=== PATIENT | male | born 1940 | race Caucasian/White ===

== ENCOUNTER 2016-12-11 18:25 | Inpatient (IN) | payer OTHER, MEDICARE ==
[2016-12-11] VITALS (9 sets, daily range): BP systolic 98–139; BP diastolic 53–85; PULSE 75–144; RESP 16–22; TEMP 97.8–98.7; O2SAT 81–99
[~2016-12-11] VITALS: Ht 181.6 cm; Wt 88.7 kg
[~2016-12-11 18:25] MED LIST: ALBU1AER5 INH; AMIO5TAB PO; ASPI81TA11 PO; ATOR40TA16 PO; FENT100D T-DERMAL; LANTUS2P SQ; LEVO200T4 PO; METO10TA PO; MIRA3350 PO; MSIR30 PO; NOVOINJ3 SQ; ONDA1TAB17 PO; PRED10PA PO; PROT40TA PO; SPIRCAP INH; SUCR1TAB PO; TAMS0.4C4 PO; TRAZ100T4 PO; XARE20TA PO; ZANT150T2 PO
--- NOTE | 2016-12-11 18:52 | PD ---
HPI Chief Complaint: Cardiac Complaint Time Seen by Provider: 18:48 Travel History International Travel<30 days: No Contact w/Intl Traveler<30days: No Traveled to known affect area: No History of Present Illness HPI This is a 76-year-old male who has a history of atrial flutter who presents to the emergency department with worsening shortness of breath, palpitations and increasing lower extremity swelling is been progressing ever since he was admitted in October and had an ablation. The patient reports that he went to see his doctor earlier this week and they started him on digoxin as well as Lasix. He's been taking it but his symptoms have not been improving. He says he's had some intermittent chest tightness in the center of his chest. His symptoms of been constant, worsening limiting his ability to go about his daily activities. PFSH Past Medical History Hx Anticoagulant Therapy: Yes (XARELTO) Arthritis: Yes Asthma: No Atrial Fibrillation: Yes Autoimmune Disease: No Heart Rhythm Problems: Yes Cancer: No Cardiovascular Problems: Yes High Cholesterol: No Chest Pain: No Congestive Heart Failure: No COPD: Yes Cerebrovascular Accident: No Diabetes: Yes Patient Takes Glucophage: No Endocrine: Yes Gastrointestinal Disorders: Yes (GASTROPARESIS) GERD: Yes Genitourinary: No Hepatitis: No Hiatal Hernia: Yes Hypertension: Yes Immune Disorder: No Implanted Vascular Access Dvce: No Musculoskeletal: Yes Neurologic: No Psychiatric: No Reproductive: No Respiratory: Yes Sleep Apnea: No Thyroid Disease: Yes Ulcer: No ?: Not Past Surgical History Abdominal Surgery: Yes (gallbladder) AICD: No Body Medical Devices: left shoulder metal plate with approx. 16 screws Cardiac Surgery: Yes (Ablation, cath) Cholecystectomy: Yes Ear Surgery: No Endocrine Surgery: No Eye Surgery: No Genitourinary Surgery: No Gynecologic Surgery: No Joint Replacement: Yes (LEFT SHOULDER METAL CLAW, 16 SCREWS) Neurologic Surgery: Yes (R leg) Oral Surgery: Yes Pacemaker: No Thoracic Surgery: No Other Surgery: Yes Social History Alcohol Use: No Tobacco Use: Yes (2 CIGARETTES/DAY) Substance Use: No Allergies-Medications (Allergen,Severity, Reaction): Coded Allergies: Flagyl (Verified Allergy, Severe, 12/11/16) Floxcin (Verified Allergy, Severe, 12/11/16) Latex (Verified Allergy, Severe, 12/11/16) Adhesives (Verified Allergy, Mild, 12/11/16) Reported Meds & Prescriptions Reported Meds & Active Scripts Active Prednisone (21) 10 mg tab Dose Pack (Prednisone) 10 Mg Pack 10 Mg PO DIRECTED Reported Levothyroxine (Levothyroxine Sodium) 200 Mcg Tab 200 Mcg PO DAILY Aspirin EC (Aspirin) 81 Mg Tabdr 81 Mg PO DAILY Zantac (Ranitidine HCl) 150 Mg Tab 150 Mg PO BID Fentanyl Patch 72 HR (Fentanyl) 100 Mcg/Hr Patch 100 Mcg T-DERMAL EVERY 2 DAYS Remove old patch when new one placed. Morphine IR (Morphine Sulfate) 30 Mg Tab 30 Mg PO Q6HR PRN Protonix (Pantoprazole Sodium) 40 Mg Tab 40 Mg PO DAILY Novolog Flexpen Inj (Insulin Aspart) 300 Unit/3 Ml Pen 5-15 Units SQ ACHS PER SLIDING SCALE: 0-150-5 UNITS, 151-200=7 UNITS, 201-250=9 UNITS, 251-300=11 UNITS, 301-350=13 UNITS, 351-400=15 UNITS, 401 & UP=CALL MD Lantus Inj (Insulin Glargine) 100 Unit/Ml Inj 12 Units SQ Q12HR Amiodarone (Amiodarone HCl) 200 Mg Tab 200 Mg PO HS Atorvastatin (Atorvastatin Calcium) 40 Mg Tab 40 Mg PO HS Ondansetron (Ondansetron HCl) 8 Mg Tab 8 Mg PO Q8HR PRN Metoclopramide (Metoclopramide HCl) 10 Mg Tab 10 Mg PO QID Trazodone (Trazodone HCl) 100 Mg Tab 200 Mg PO HS Spiriva Handihaler (Tiotropium Inh) 18 Mcg Cap 18 Mcg INH DAILY 1 capsule = 18 mcg Miralax (Polyethylene Glycol 3350) 1 Pow Pow 17 Gm PO DAILY Proair Respiclick Inh (Albuterol Sulfate) 90 Mcg/Act Aerp 2 Puff INH Q4HR PRN Sucralfate 1 Gm Tab 1 Gm PO TID on empty stomach Xarelto (Rivaroxaban) 20 Mg Tab 20 Mg PO DAILY Tamsulosin (Tamsulosin HCl) 0.4 Mg Cap 0.4 Mg PO HS Review of Systems Except as stated in HPI: all other systems reviewed are Neg Physical Exam Narrative GENERAL:Well appearing, no acute distress SKIN: Warm and dry. HEAD: Atraumatic. Normocephalic. EYES: Pupils equal and round. No injection or drainage. ENT: Moist mucous membranes NECK: Trachea midline. CARDIOVASCULAR: Tachycardic. No murmur appreciated. 2+ lower extremity bilateral pitting edema RESPIRATORY: Rales in the bilateral lung bases. GASTROINTESTINAL: Abdomen soft, non-tender, nondistended. MUSCULOSKELETAL: No obvious deformities. NEUROLOGICAL: Awake and alert. No obvious cranial nerve deficits. Moving all extremities. PSYCHIATRIC: Appropriate mood and affect; insight and judgment normal. Data Data Last Documented VS Vital Signs Date Time Temp Pulse Resp B/P Pulse Ox O2 Delivery O2 Flow Rate FiO2 12/11/16 18:42 138 20 95 Nasal Cannula 4 12/11/16 18:35 98.2 119/66 Orders Electrocardiogram (12/11/16 ) MDM Medical Decision Making Medical Screen Exam Complete: Yes Emergency Medical Condition: Yes Medical Record Reviewed: Yes (patient has had [address] Gilbert in the setting of atrial flutter.) Differential Diagnosis Atrial flutter, congestive heart failure, pneumonia, pulmonary embolism Narrative Course This is a 76-year-old male who presents the emergency department tachycardic and hypoxic in the setting of atrial flutter. He is increasing lower extremity edema consistent with congestive heart failure. Patient was placed on a monitor and an IV was established. He'll be given IV diltiazem, IV Lasix, an x- ray and labs will be obtained. Patient will be admitted Reina Wells MD Dec 11, 2016 18:52
[2016-12-11] MEDS ORDERED: FURO20TA PO (18:55)
[2016-12-11] MEDS ORDERED: FUROSEMIDE 40 MG/4 ML VIAL IVP ONE (19:00)
[2016-12-11] MEDS ORDERED: SODIUM CHLORIDE 0.9% FLUSH 5 ML FLUSH IVF PRN (19:00)
[2016-12-11] MEDS ORDERED: DILTIAZEM HCL 25 MG/5 ML VIAL IV ONE (19:00)
--- NOTE | 2016-12-11 19:10 | RADRPT ---
EXAM DATE/TIME: 12/11/2016 19:05 [facility] COMPARISON: CHEST SINGLE AP, November 24, 2016, 4:30. INDICATIONS : Short of breath MEDICAL HISTORY : Hypertension. Hiatal hernia. Chronic obstructive pulmonary disease. Diabetes A-fib SURGICAL HISTORY : Cholecystectomy. ENCOUNTER: Initial ACUITY: 1 day PAIN SCORE: 0/10 LOCATION: Bilateral chest FINDINGS: New consolidative changes left base. The right lung is clear. The heart is minimally enlarged. The re is minimal pulmonary venous congestion. CONCLUSION: New consolidative changes left base. Henry Sims MD FACR on December 11, 2016 at 19:07 Board Certified Radiologist. This report was verified electronically.
[2016-12-11 19:16] LABS: AUTOMATED NEUTROPHIL # 5.7 TH/MM3 (1.8-7.7); BASOPHIL # 0.1 TH/MM3 (0-0.2); EOSINOPHIL % 0.1 % (0.0-4.0); HEMO FLAGS DIFF FINAL; LYMPH % 10.4 % (9.0-44.0); LYMPHOCYTE # 0.7 TH/MM3 (1.0-4.8); MEAN CELL VOLUME 85.8 FL (80.0-100.0); MEAN CORPUSCULAR HEMOGLOBIN 28.2 PG (27.0-34.0); MEAN CORPUSCULAR HGB CONC 32.9 % (32.0-36.0); MONO % 8.3 % (0.0-8.0); NEUT % 80.2 % (16.0-70.0); PLATELET COUNT 234 TH/MM3 (150-450); RED BLOOD COUNT 5.01 MIL/MM3 (4.50-5.90); RED CELL DISTRIBUTION WIDTH 17.8 % (11.6-17.2); WHITE BLOOD COUNT 7.1 TH/MM3 (4.0-11.0)
[2016-12-11] MEDS ORDERED: CEFEPIME INJ 2,000 MG in SODIUM CHLORIDE 0.9% INJ 100 ML IV ONE (19:45)
[2016-12-11] MEDS ORDERED: AZTREONAM INJ 2,000 MG in SODIUM CHLORIDE 0.9% INJ 100 ML IV ONE (19:45)
[2016-12-11 19:47] LABS: ANION GAP 11 MEQ/L (5-15); AST (GOT) 13 U/L (15-37); BLOOD UREA NITROGEN 16 MG/DL (7-18); CHLORIDE 95 MEQ/L (98-107); GLOMERULAR FILTRATION RATE 77 ML/MIN (>89); MAGNESIUM 1.6 MG/DL (1.5-2.5); POTASSIUM 4.2 MEQ/L (3.5-5.1); SODIUM (NA) 133 MEQ/L (136-145)
[2016-12-11 19:54] LABS: ALKALINE PHOSPHATASE 178 U/L (45-117); ALT (GPT) 21 U/L (12-78); TOTAL BILIRUBIN ADULT 1.1 MG/DL (0.2-1.0)
[2016-12-11] MEDS ORDERED: MORPHINE SULFATE 4 MG/ML INJ IV PUSH ONE (20:15)
[2016-12-11] MEDS ORDERED: ONDANSETRON HCL 4 MG/2 ML VIAL IV PUSH ONE (20:15)
[2016-12-11] MEDS ORDERED: INSULIN HUMAN REGULAR 1,000 UNITS/10 ML VIAL SQ ONE (20:15)
[2016-12-11] MEDS ORDERED: NALOXONE HCL 0.4 MG/ML AMP IV PRN (20:30)
[2016-12-11] MEDS ORDERED: SODIUM CHLORIDE 0.9% FLUSH 5 ML FLUSH FLUSH PRN (20:30)
--- NOTE | 2016-12-11 20:37 | PD ---
Physical Exam Narrative Patient signed out to me by Dr. Wells to follow up labs. Please refer to her note for complete history and physical details. Briefly, patient has been experiencing pain to the left side of his chest with SOB ever since having an ablation performed in late October. He was given 4 days of Digoxin by his PCP earlier this week because he continued to have rapid heart rate. When patient arrived, he had a heart rate in the 140s and was given Diltiazem and Lasix. Data Data Last Documented VS Vital Signs Date Time Temp Pulse Resp B/P Pulse Ox O2 Delivery O2 Flow Rate FiO2 12/11/16 19:15 89 22 116/53 Nasal Cannula 4 12/11/16 19:07 96 12/11/16 18:35 98.2 Orders Electrocardiogram (12/11/16 ) Complete Blood Count With Diff (12/11/16 18:52) Comprehensive Metabolic Panel (12/11/16 18:52) B-Type Natriuretic Peptide (12/11/16 18:52) Magnesium (Mg) (12/11/16 18:52) Troponin I (12/11/16 18:52) Iv Access Insert/Monitor (12/11/16 18:52) Ecg Monitoring (12/11/16 18:52) Oximetry (12/11/16 18:52) Oxygen Administration (12/11/16 18:52) Chest, Single Ap (12/11/16 18:52) Sodium Chloride 0.9% Flush (Ns Flush) (12/11/16 19:00) Furosemide Inj (Lasix Inj) (12/11/16 19:00) Diltiazem Inj (Cardizem Inj) (12/11/16 19:00) Digoxin (12/11/16 19:01) Cefepime Inj (Maxipime Inj) (12/11/16 19:45) Aztreonam Inj (Azactam Inj) (12/11/16 19:45) Morphine Inj (Morphine Inj) (12/11/16 20:15) Ondansetron Inj (Zofran Inj) (12/11/16 20:15) Insulin Human Regular Inj (Novolin R Inj (12/11/16 20:15) Admit Order (Ed Use Only) (12/11/16 ) Labs Laboratory Tests Test 12/11/16 19:00 White Blood Count 7.1 TH/MM3 Red Blood Count 5.01 MIL/MM3 Hemoglobin 14.1 GM/DL Hematocrit 43.0 % Mean Corpuscular Volume 85.8 FL Mean Corpuscular Hemoglobin 28.2 PG Mean Corpuscular Hemoglobin 32.9 % Concent Red Cell Distribution Width 17.8 % Platelet Count 234 TH/MM3 Mean Platelet Volume 8.0 FL Neutrophils (%) (Auto) 80.2 % Lymphocytes (%) (Auto) 10.4 % Monocytes (%) (Auto) 8.3 % Eosinophils (%) (Auto) 0.1 % Basophils (%) (Auto) 1.0 % Neutrophils # (Auto) 5.7 TH/MM3 Lymphocytes # (Auto) 0.7 TH/MM3 Monocytes # (Auto) 0.6 TH/MM3 Eosinophils # (Auto) 0.0 TH/MM3 Basophils # (Auto) 0.1 TH/MM3 CBC Comment DIFF FINAL Differential Comment Sodium Level 133 MEQ/L Potassium Level 4.2 MEQ/L Chloride Level 95 MEQ/L Carbon Dioxide Level 27.0 MEQ/L Anion Gap 11 MEQ/L Blood Urea Nitrogen 16 MG/DL Creatinine 0.95 MG/DL Estimat Glomerular Filtration 77 ML/MIN Rate Random Glucose 411 MG/DL Calcium Level 8.1 MG/DL Magnesium Level 1.6 MG/DL Total Bilirubin 1.1 MG/DL Aspartate Amino Transf 13 U/L (AST/SGOT) Alanine Aminotransferase 21 U/L (ALT/SGPT) Alkaline Phosphatase 178 U/L Troponin I 0.02 NG/ML Total Protein 6.0 GM/DL Albumin 2.5 GM/DL Digoxin Level 0.6 NG/ML MDM Supervised Visit with PRINCESS: No Narrative Course CXR shows a LLL pneumonia, no pulmonary edema. Labs show an elevated glucose. Patient given Cefepime and Aztreonam for HCAP, Aztreonam given due to Levaquin allergy and issues with arrhythmia. Given Morphine for pain and Zofran for nausea. Given 8 units of insulin. Patient admitted for further management. Diagnosis Primary Impression: Pneumonia Qualified Code: J18.1 - Pneumonia of left lower lobe due to infectious organism Additional Impression: Atrial flutter with rapid ventricular response Admitting Information Admitting Physician Requests: Admit Sara Kirkpatrick MD Dec 11, 2016 20:37
[2016-12-11] MEDS ORDERED: GLUCAGON 1 MG/ML VIAL OTHER PRN (20:45)
[2016-12-11] MEDS ORDERED: DEXTROSE 50% IN WATER 50 ML VIAL(D50) IV PUSH PRN (20:45)
[2016-12-11] MEDS ORDERED: FUROSEMIDE 20 MG TAB PO SCH (21:00)
[2016-12-11] MEDS ORDERED: AMIODARONE 200 MG TAB PO SCH (21:00)
[2016-12-11] MEDS: SODIUM CHLORIDE 0.9% FLUSH 5 ML FLUSH FLUSH SCH (21:00)
[2016-12-11] MEDS: INSULIN ASPART SUPPLEMENTAL SCALE SQ SCH (21:00)
[2016-12-11] MEDS: METOCLOPRAMIDE HCL 10 MG TAB PO SCH (21:40)
[2016-12-11] MEDS: FAMOTIDINE 20 MG TAB PO SCH (21:40)
[2016-12-11] MEDS: ATORVASTATIN 40 MG TAB PO SCH (22:10)
[2016-12-11] MEDS: TAMSULOSIN HCL 0.4 MG CAP PO SCH (22:10)
[2016-12-11 22:13] LABS: BLOOD, URINE MOD (NEG); COMMENT (UR) CULT NOT INDICATED; CULTURE IF INDICATED CULT NOT INDICATED; GLUCOSE,URINE 1000 mg/dL (NEG); HYALINE CAST, URINE 4 /lpf (RARE); KETONE, URINE NEG (NEG); MUCUS URINE FEW /lpf (OCC); NITRITE,URINE NEG (NEG); PH, URINE 5.5 (5.0-8.5); SQUAMOUS EPITHELIAL CELL URINE 1 /hpf (0-5); URINE COLOR LIGHT-YELLOW (YELLW/STRAW)
[2016-12-11] MEDS ORDERED: MORPHINE SULFATE 4 MG/ML INJ IV PUSH PRN (22:30)
--- NOTE | 2016-12-11 22:49 | HHI.HP ---
[facility] Admission Diagnosis pneumonia, aflutter with RVR Diagnoses: (1) Atrial flutter with rapid ventricular response (2) Pneumonia (3) Type 2 diabetes mellitus (4) Hyponatremia (5) Neuropathy (6) Chronic pain Chief Complaint: chest pain, palpitations Travel History International Travel<30 Days: No Contact w/Intl Traveler <30 Da: No Traveled to Known Affected Are: No History of Present Illness Mr. Santana is a 76-year-old male with a past medical history of atrial fibrillation on Xarelto s/p ablation x 2, arthritis, COPD, diabetes mellitus, gastroparesis, gastroesophageal reflux disease, and chronic neuropathic pain who presents to the emergency room complaining of worsening shortness of breath , palpitations, and increased lower extremity swelling since a October hospitalization for atrial fibrillation with an ablation by Dr. Viveros. PCP saw patient earlier this week and provided 4 days of digoxin for rapid heart rate and Lasix for lower extremity swelling. BNP normal at 97, troponin 1 is 0.02 which is within normal parameters. Mild hyponatremia noted with sodium of 133. Hyperglycemia with glucose of 411. Chest x-ray with new consolidation noted left lower lobe; minimal pulmonary venous congestion; minimal cardiomegaly. The patient is seen in the CDU. He states he has severe intermittent chest pain started today; worse when lying back -location: central and left chest; Denies fever, diaphoresis or chills. Palpitations with cough and severe shortness of breath accompanied palpitations. He also reports shortness of breath with cough until two days ago - when coughing had phlegm x 1 1/2 weeks - white in color. Symptoms accompanied by severe fatigue. . Review of Systems Constitutional: COMPLAINS OF: Fatigue, DENIES: Diaphoretic episodes, Fever, Chills Respiratory: COMPLAINS OF: Cough, Sputum production, Shortness of breath Cardiovascular: COMPLAINS OF: Chest pain, Palpitations Gastrointestinal: COMPLAINS OF: Constipation, Nausea, Vomiting (yellow; appeared like bile - post-tussive), DENIES: Black stools, Bloody stools Genitourinary: COMPLAINS OF: Hematuria (3 weeks ago; evaluated by PCP; no treatment offered), DENIES: Dysuria Musculoskeletal: COMPLAINS OF: Joint pain (knee - chronic) Psychiatric: COMPLAINS OF: Anxiety Other Psychiatric: claustrophobia All systems are reviewed and are otherwise negative . Past Family Social History Past Medical History Atrial fibrillation on Xarelto status post ablation Arthritis COPD Diabetes mellitus Gastroparesis Gastroesophageal reflux disease . Past Surgical History Cholecystectomy Left shoulder repair with metal plate EPS with ablation Cholecystectomy Right leg surgery . Reported Medications Reported Meds & Active Scripts Active Reported Furosemide 20 Mg Tab 20 Mg PO BID Levothyroxine (Levothyroxine Sodium) 200 Mcg Tab 200 Mcg PO DAILY Zantac (Ranitidine HCl) 150 Mg Tab 150 Mg PO BID Fentanyl Patch 72 HR (Fentanyl) 100 Mcg/Hr Patch 100 Mcg T-DERMAL EVERY 2 DAYS Remove old patch when new one placed. Morphine IR (Morphine Sulfate) 30 Mg Tab 30 Mg PO Q6HR PRN Protonix (Pantoprazole Sodium) 40 Mg Tab 40 Mg PO DAILY Novolog Flexpen Inj (Insulin Aspart) 300 Unit/3 Ml Pen 5-15 Units SQ ACHS PER SLIDING SCALE: 0-150-5 UNITS, 151-200=7 UNITS, 201-250=9 UNITS, 251-300=11 UNITS, 301-350=13 UNITS, 351-400=15 UNITS, 401 & UP=CALL Lantus Inj (Insulin Glargine) 100 Unit/Ml Inj 12 Units SQ Q12HR Amiodarone (Amiodarone HCl) 200 Mg Tab 200 Mg PO HS Atorvastatin (Atorvastatin Calcium) 40 Mg Tab 40 Mg PO HS Ondansetron (Ondansetron HCl) 8 Mg Tab 8 Mg PO Q8HR PRN Metoclopramide (Metoclopramide HCl) 10 Mg Tab 10 Mg PO QID Trazodone (Trazodone HCl) 100 Mg Tab 200 Mg PO HS Spiriva Handihaler (Tiotropium Inh) 18 Mcg Cap 18 Mcg INH DAILY 1 capsule = 18 mcg Miralax (Polyethylene Glycol 3350) 1 Pow Pow 17 Gm PO DAILY Proair Respiclick Inh (Albuterol Sulfate) 90 Mcg/Act Aerp 2 Puff INH Q4HR PRN Sucralfate 1 Gm Tab 1 Gm PO TID on empty stomach Xarelto (Rivaroxaban) 20 Mg Tab 20 Mg PO DAILY Tamsulosin (Tamsulosin HCl) 0.4 Mg Cap 0.4 Mg PO HS . Allergies: Coded Allergies: Flagyl (Verified Allergy, Severe, 12/11/16) Floxcin (Verified Allergy, Severe, 12/11/16) Latex (Verified Allergy, Severe, 12/11/16) Adhesives (Verified Allergy, Mild, 12/11/16) Active Ordered Medications Current Medications IV Flush (NS Flush) 2 ml UNSCH PRN IVF FLUSH AFTER USING IV ACCESS; Start 12/11 at 19:00; Stop 12/11/16 at 20:37; Status DC Furosemide (Lasix Inj) 40 mg ONCE ONCE IVP Last administered on 12/11/16 19: 17; Start 12/11/16 at 19:00; Stop 12/11/16 at 19:01; Status DC Diltiazem HCl 15 mg 15 mg ONCE ONCE IV Last administered on 12/11/16 19:13; Start 12/11/16 at 19:00; Stop 12/11/16 at 19:01; Status DC Cefepime HCl 2000 mg/Sodium Chloride 100 ml @ 200 mls/hr ONCE ONCE IV Last administered on 12/11/16 20:16; Start 12/11/16 at 19:45; Stop 12/11/16 at 20:14 ; Status DC Aztreonam/Sodium Chloride (Azactam Inj/NS Inj) 100 ml @ 200 mls/hr ONCE ONCE IV Last administered on 12/11/16 21:02; Start 12/11/16 at 19:45; Stop at 20:14; Status DC Morphine Sulfate (Morphine Inj) 2 mg ONCE ONCE IV PUSH Last administered on 20:30; Start 12/11/16 at 20:15; Stop 12/11/16 at 20:16; Status DC Ondansetron HCl (Zofran Inj) 4 mg ONCE ONCE IV PUSH Last administered on 20:29; Start 12/11/16 at 20:15; Stop 12/11/16 at 20:16; Status DC Insulin Human Regular (NovoLIN R INJ) 8 units ONCE ONCE SQ Last administered on 12/11/16 20:30; Start 12/11/16 at 20:15; Stop 12/11/16 at 20:16; Status DC IV Flush (NS Flush) 2 ml UNSCH PRN FLUSH FLUSH AFTER USING IV ACCESS; Start 11/15 at 20:30 IV Flush (NS Flush) 2 ml BID FLUSH ; Start 12/11/16 at 21:00 Naloxone HCl (Narcan Inj) 0.4 mg UNSCH PRN IV SEE LABEL COMMENTS; Start at 20:30 Dextrose (D50w (Vial) Inj) 25 ml UNSCH PRN IV PUSH HYPOGLYCEMIA-SEE COMMENTS; Start 12/11/16 at 20:45 Glucagon (Glucagon Inj) 1 mg UNSCH PRN OTHER HYPOGLYCEMIA-SEE COMMENTS; Start 12/11/16 at 20:45 Insulin Aspart (NovoLOG SUPPLEMENTAL SCALE) 1 ACHS SLIDING SCALE SQ ; Start 11/15 at 21:00 Amiodarone HCl (Cordarone) 200 mg HS PO Last administered on 12/11/16 21:40; Start 12/11/16 at 21:00 Atorvastatin Calcium (Lipitor) 40 mg HS PO Last administered on 12/11/16 22:10 ; Start 12/11/16 at 21:00 Furosemide (Lasix) 20 mg BID PO ; Start 12/11/16 at 21:00; Stop 12/11/16 at 21: 17; Status DC Levothyroxine Sodium (Synthroid) 200 mcg DAILY PO ; Start 12/12/16 at 09:00 Metoclopramide HCl (Reglan) 10 mg QID PO Last administered on 12/11/16 21:40; Start 12/11/16 at 21:00 Pantoprazole Sodium (Protonix) 40 mg DAILY PO ; Start 12/12/16 at 09:00 Famotidine (Pepcid) 20 mg BID PO Last administered on 12/11/16 21:40; Start at 21:00 Rivaroxaban (Xarelto) 20 mg DAILY PO ; Start 12/12/16 at 09:00 Sucralfate (Carafate) 1 gm TID PO ; Start 12/12/16 at 09:00 Tamsulosin HCl (Flomax) 0.4 mg HS PO Last administered on 12/11/16 22:10; Start 12/11/16 at 21:00 Tiotropium [place] (Spiriva Inh) 18 mcg DAILY INH ; Start 12/12/16 at 09:00 Furosemide (Lasix) 20 mg BID PO ; Start 12/12/16 at 09:00 Trazodone HCl (Desyrel) 200 mg HS PO ; Start 12/11/16 at 22:30 Morphine Sulfate (Morphine Inj) 2 mg Q4HR PRN IV PUSH pain >5; Start 12/11/16 at 22:30 . Family History Mother: [place], not early onset Father: PAD . Social History Tobacco: Smokes 1 PPD x has smoked for 54 years Alcohol: Denies Illicit Drugs: Denies ; drives self . Physical Exam Vital Signs Vital Signs Date Time Temp Pulse Resp B/P Pulse Ox O2 Delivery O2 Flow Rate FiO2 12/11/16 22:21 75 12/11/16 22:14 98.7 82 16 139/63 93 12/11/16 21:00 99 Nasal Cannula 4 12/11/16 21:00 99 22 126/70 96 Nasal Cannula 4 12/11/16 21:00 22 99 Nasal Cannula 4 12/11/16 20:00 105 22 132/85 96 Nasal Cannula 4 12/11/16 19:15 89 22 116/53 Nasal Cannula 4 12/11/16 19:07 122 22 119/66 96 Nasal Cannula 12/11/16 18:42 138 20 95 Nasal Cannula 4 12/11/16 18:35 98.2 144 22 119/66 84 12/11/16 18:29 97.8 139 20 98/58 81 Room Air Physical Exam GENERAL: This is a pleasant well-nourished, well-developed patient, in no apparent distress. SKIN: No rashes, ecchymoses or lesions. Cool and dry. HEAD: Atraumatic. Normocephalic. EYES: No scleral icterus. No injection or drainage. ENT: Nose without bleeding, purulent drainage. NECK: Trachea midline. No JVD or lymphadenopathy. CARDIOVASCULAR: Regular rate and rhythm without murmurs, gallops, or rubs. RESPIRATORY: Diffuse expiratory wheezing. Breath sounds equal bilaterally. No rales or rhonchi. GASTROINTESTINAL: Abdomen soft, non-tender, nondistended. No guarding. MUSCULOSKELETAL: Extremities without clubbing, cyanosis, or edema. No calf tenderness. NEUROLOGICAL: Awake and alert. Motor and sensory grossly within normal limits. Normal speech. . Laboratory Laboratory Tests Test 12/11/16 12/11/16 19:00 21:47 White Blood Count 7.1 Red Blood Count 5.01 Hemoglobin 14.1 Hematocrit 43.0 Mean Corpuscular Volume 85.8 Mean Corpuscular Hemoglobin 28.2 Mean Corpuscular Hemoglobin 32.9 Concent Red Cell Distribution Width 17.8 Platelet Count 234 Mean Platelet Volume 8.0 Neutrophils (%) (Auto) 80.2 Lymphocytes (%) (Auto) 10.4 Monocytes (%) (Auto) 8.3 Eosinophils (%) (Auto) 0.1 Basophils (%) (Auto) 1.0 Neutrophils # (Auto) 5.7 Lymphocytes # (Auto) 0.7 Monocytes # (Auto) 0.6 Eosinophils # (Auto) 0.0 Basophils # (Auto) 0.1 CBC Comment DIFF FINAL Differential Comment Sodium Level 133 Potassium Level 4.2 Chloride Level 95 Carbon Dioxide Level 27.0 Anion Gap 11 Blood Urea Nitrogen 16 Creatinine 0.95 Estimat Glomerular Filtration 77 Rate Random Glucose 411 Calcium Level 8.1 Magnesium Level 1.6 Total Bilirubin 1.1 Aspartate Amino Transf 13 (AST/SGOT) Alanine Aminotransferase 21 (ALT/SGPT) Alkaline Phosphatase 178 Troponin I 0.02 B-Type Natriuretic Peptide 97 Total Protein 6.0 Albumin 2.5 Digoxin Level 0.6 Urine Color LIGHT-YELLOW Urine Turbidity CLEAR Urine pH 5.5 Urine Specific [place] 1.011 Urine Protein NEG Urine Glucose (UA) 1000 Urine Ketones NEG Urine Occult Blood MOD Urine Nitrite NEG Urine Bilirubin NEG Urine Urobilinogen LESS THAN 2.0 Urine Leukocyte Esterase NEG Urine RBC 8 Urine WBC LESS THAN 1 Urine Squamous Epithelial 1 Cells Urine Hyaline Casts 4 Urine Mucus FEW Microscopic Urinalysis Comment CULT NOT INDICATED Result Diagram: 12/11/16 1900 12/11/16 190 Imaging Last Impressions Chest X-Ray 12/11/16 1852 Signed Impressions: Service Date/Time: November 19:05 - CONCLUSION: New consolidative changes left base. Henry Sims MD FACR Assessment and Plan Problem List: (1) Pneumonia ICD Code: J18.9 Status: Acute (2) Atrial flutter with rapid ventricular response ICD Code: I48.92 Status: Acute (3) Type 2 diabetes mellitus ICD Code: E11.9 Status: Chronic (4) Hyponatremia ICD Code: E87.1 Status: Acute (5) Neuropathy ICD Code: G62.9 Status: Chronic (6) Chronic pain ICD Code: G89.29 Status: Chronic Assessment and Plan Mr. Santana is a 76-year-old male with a past medical history of atrial fibrillation on Xarelto, arthritis, COPD, diabetes mellitus, gastroparesis, gastroesophageal reflux disease, and chronic neuropathic pain who presents to the emergency room complaining of worsening shortness of breath, palpitations, and increased lower extremity swelling since a October hospitalization for atrial fibrillation with an ablation by Dr. Viveros. PCP saw patient earlier this week and provided 4 days of digoxin for rapid heart rate and Lasix for lower extremity swelling. BNP normal at 97, troponin 1 is 0.02 which is within normal parameters. Mild hyponatremia noted with sodium of 133. Hyperglycemia with glucose of 411. Chest x-ray with new consolidation noted left lower lobe; minimal pulmonary venous congestion; minimal cardiomegaly. Left lower lobe pneumonia - left lung base consolidation on CXR - Given cefepime and aztreonam for HCAP in ER - Cefipime 2 gm IV q8h - Holding duonebulizer for now until heart rate is better controlled (doesn't use nebulizers at home) - consider Xopenex Atrial flutter with RVR - Rule out ACS with serial EKGs and cardiac enzymes - Rate controlled with IV Cardizem - Continuous cardiac telemetry to monitor rate and further arrhythmias - Heart healthy diet - I and O every shift - Vital signs every 4 hours - Digoxin subtherapeutic at 0.6 on admission Type 2 diabetes mellitus with hyperglycemia on admission - Blood glucose 411 on admission - Accu-Cheks before meals and at bedtime with low-dose NovoLog sliding scale coverage - Hypoglycemia protocol - Monitor blood glucose trends and adjust medications as indicated Mild hyponatremia with sodium 133 - Recheck BMP in a.m. and follow trends and sodium Chronic Neuropathic Pain - continue home Fentanyl and Morphine DVT prophylaxis - continue home Xarelto Written by Monik Castro, acting as scribe for Dr. Keith on 12/11/16 at 22:47. The documentation accurately reflects the work performed [id number] by me on at 2247 . Discussed Condition With patient and ER physician . Physician Certification 2 Midnight Certification Type: Admission for Inpatient Services Order for Inpatient Services The services are ordered in accordance with Medicare regulations or non- Medicare payer requirements, as applicable. In the case of services not specified as inpatient-only, they are appropriately provided as inpatient services in accordance with the 2-midnight benchmark. Estimated LOS (days): 3 days is the estimated time the patient will need to remain in the hospital, assuming treatment plan goals are met and no additional complications. Post-Hospital Plan: Home Problem Qualifiers (1) Pneumonia: Qualified Code: J18.1 - Pneumonia of left lower lobe due to infectious organism (2) Type 2 diabetes mellitus: Monik Castro Dec 11, 2016 22:49 Jelani Keith MD Dec 12, 2016 08:32
[2016-12-11] MEDS: traZODone HCL 100 MG TAB PO SCH (22:52)
[2016-12-12] VITALS (10 sets, daily range): BP systolic 100–137; BP diastolic 52–74; PULSE 72–139; RESP 18–20; TEMP 95.8–98.7; O2SAT 95–97
[2016-12-12] MEDS: MORPHINE SULFATE 30 MG TAB PO PRN ×2 (00:34→17:08)
[2016-12-12] MEDS ORDERED: CEFEPIME INJ 2,000 MG in SODIUM CHLORIDE 0.9% INJ 100 ML IV SCH (04:00)
[2016-12-12] MEDS: INSULIN ASPART SUPPLEMENTAL SCALE SQ SCH ×4 (06:31→21:58)
[2016-12-12 08:04] LABS: AUTOMATED NEUTROPHIL # 3.9 TH/MM3 (1.8-7.7); BASOPHIL % 0.9 % (0.0-2.0); EOSINOPHIL % 0.3 % (0.0-4.0); HEMATOCRIT 39.4 % (39.0-51.0); HEMO FLAGS DIFF FINAL; LYMPH % 13.6 % (9.0-44.0); LYMPHOCYTE # 0.7 TH/MM3 (1.0-4.8); MEAN CELL VOLUME 85.9 FL (80.0-100.0); MEAN CORPUSCULAR HGB CONC 32.6 % (32.0-36.0); MONO % 9.3 % (0.0-8.0); NEUT % 75.9 % (16.0-70.0); PLATELET COUNT 193 TH/MM3 (150-450); RED BLOOD COUNT 4.58 MIL/MM3 (4.50-5.90); RED CELL DISTRIBUTION WIDTH 17.9 % (11.6-17.2); WHITE BLOOD COUNT 5.2 TH/MM3 (4.0-11.0)
[2016-12-12 08:19] LABS: BICARBONATE 31.7 MEQ/L (21.0-32.0); POTASSIUM 3.5 MEQ/L (3.5-5.1)
[2016-12-12] MEDS: TIOTROPIUM BROMIDE 18 MCG INH INH SCH (08:52)
[2016-12-12] MEDS: FAMOTIDINE 20 MG TAB PO SCH ×2 (08:53→21:58)
[2016-12-12] MEDS: SUCRALFATE 1 GM TAB PO SCH ×3 (08:53→17:08)
[2016-12-12] MEDS: FUROSEMIDE 20 MG TAB PO SCH ×2 (08:53→21:58)
[2016-12-12] MEDS: SODIUM CHLORIDE 0.9% FLUSH 5 ML FLUSH FLUSH SCH ×2 (08:53→22:01)
[2016-12-12] MEDS: RIVAROXABAN 20 MG TAB PO SCH (08:53)
[2016-12-12] MEDS: LEVOTHYROXINE SODIUM 200 MCG TAB PO SCH (08:53)
[2016-12-12] MEDS: CEFEPIME INJ 2,000 MG in SODIUM CHLORIDE 0.9% INJ 100 ML IV SCH ×2 (08:53→21:57)
[2016-12-12] MEDS: METOCLOPRAMIDE HCL 10 MG TAB PO SCH ×4 (08:54→21:58)
[2016-12-12] MEDS: PANTOPRAZOLE SOD 40 MG DELAYED RELEASE TAB PO SCH (08:55)
[2016-12-12] MEDS: fentaNYL 100 MCG/HR PATCH T-DERMAL SCH (08:55)
[2016-12-12] MEDS ORDERED: DIGOXIN 0.5 MG/2 ML VIAL IV PUSH ONE (09:45)
[2016-12-12] MEDS: INSULIN DETEMIR 100 UNITS/ML VIAL SQ SCH ×2 (10:43→21:57)
[2016-12-12] MEDS ORDERED: RESP: ALBUTEROL 2.5 MG/IPRATROPIUM 0.5 MG NEB (PRN) NEB (12:45)
--- NOTE | 2016-12-12 12:52 | HHI.PR ---
Subjective Remarks Follow up for SOB, palpitations, lower extremity edema, cough, with LLL pneumonia and aflutter with RVR. The patient today complains of constant sharp pains across the entire anterior chest worse with cough and deep inspiration. He reports continued cough, occasionally productive of white sputum. Denies fevers or chills. Shortness of breath slightly improved, however patient has not yet ambulated today. He has no other complaints at this time. His extension service specialist in charge is Dr. Viveros. Objective Vitals Vital Signs Date Time Temp Pulse Resp B/P Pulse Ox O2 Delivery O2 Flow Rate FiO2 12/12/16 10:01 20 12/12/16 08:00 98.4 93 20 112/59 97 12/12/16 05:26 98.7 84 18 102/52 97 12/12/16 02:29 84 12/12/16 01:45 16 12/12/16 01:37 98.1 97 18 100/55 97 12/11/16 23:37 84 12/11/16 23:30 16 12/11/16 22:21 75 12/11/16 22:14 98.7 82 16 139/63 93 12/11/16 21:00 99 Nasal Cannula 4 12/11/16 21:00 99 22 126/70 96 Nasal Cannula 4 12/11/16 21:00 22 99 Nasal Cannula 4 12/11/16 20:00 105 22 132/85 96 Nasal Cannula 4 12/11/16 19:15 89 22 116/53 Nasal Cannula 4 12/11/16 19:07 122 22 119/66 96 Nasal Cannula 12/11/16 18:42 138 20 95 Nasal Cannula 4 12/11/16 18:35 98.2 144 22 119/66 84 12/11/16 18:29 97.8 139 20 98/58 81 Room Air I/O 12/11/16 12/11/16 12/11/16 12/12/16 12/12/16 12/12/16 07:00 15:00 23:00 07:00 15:00 23:00 Intake Total 480 ml 480 ml Balance 480 ml 480 ml Intake Oral 480 ml 480 ml # Voids 2 2 2 # Bowel Movements 1 Result Diagram: 12/12/16 0734 12/12/16 0734 Imaging Last Impressions Chest X-Ray 12/11/16 185 Signed Impressions: Service Date/Time: November 19:05 - CONCLUSION: New consolidative changes left base. Henry Sims MD FACR Objective Remarks GENERAL: Well-nourished, well-developed male patient in NAD. SKIN: Warm and dry. No rash. HEAD: Normocephalic. Atraumatic. EYES: Pupils equal and round. No scleral icterus. No injection or drainage. ENT: No nasal bleeding or discharge. Mucous membranes pink and moist. NECK: Supple. Trachea midline. CARDIOVASCULAR: Irregularly Irregular rate and rhythm. S1, S2 noted. No murmur appreciated. RESPIRATORY: No accessory muscle use. Clear to auscultation. Breath sounds equal bilaterally. GASTROINTESTINAL: Abdomen soft, non-tender, nondistended. Normoactive bowel sounds x4. MUSCULOSKELETAL: No obvious deformities. 1+ b/l lower extremity pitting edema. NEUROLOGICAL: Awake and alert. No obvious cranial nerve deficits. Motor grossly within normal limits. Normal speech. PSYCHIATRIC: Appropriate mood and affect; insight and judgment normal. Medications and IVs Current Medications Medications (Trade) Dose Ordered Sig/Melissa Route Start Time Stop Time Status Last Admin (NS Flush) 2 ml UNSCH PRN FLUSH 12/11/16 20:30 (NS Flush) 2 ml BID FLUSH 12/11/16 21:00 12/12/16 08:53 (Narcan Inj) 0.4 mg UNSCH PRN IV 12/11/16 20:30 (D50w (Vial) Inj) 25 ml UNSCH PRN IV PUSH 12/11/16 20:45 (Glucagon Inj) 1 mg UNSCH PRN OTHER 12/11/16 20:45 (Cordarone) 200 mg HS PO 12/11/16 21:00 12/11/16 21:40 (Lipitor) 40 mg HS PO 12/11/16 21:00 12/11/16 22:10 (Synthroid) 200 mcg DAILY PO 12/12/16 09:00 12/12/16 08:53 (Reglan) 10 mg QID PO 12/11/16 21:00 12/12/16 08:54 (Protonix) 40 mg DAILY PO 12/12/16 09:00 12/12/16 08:55 (Pepcid) 20 mg BID PO 12/11/16 21:00 12/12/16 08:53 (Xarelto) 20 mg DAILY PO 12/12/16 09:00 12/12/16 08:53 (Carafate) 1 gm TID PO 12/12/16 09:00 12/12/16 08:53 (Flomax) 0.4 mg HS PO 12/11/16 21:00 12/11/16 22:10 (Spiriva Inh) 18 mcg DAILY INH 12/12/16 09:00 12/12/16 08:52 (Lasix) 20 mg BID PO 12/12/16 09:00 12/12/16 08:53 (Desyrel) 200 mg HS PO 12/11/16 22:30 12/11/16 22:52 (Msir) 30 mg Q6H PRN PO 12/11/16 23:00 12/12/16 00:34 Fentanyl 1 patch 1 patch Q72H T-DERMAL 12/12/16 09:00 12/12/16 08:55 (Maxipime Inj/NS Inj) 100 ml @ 200 mls/hr Q12H IV 12/12/16 08:00 12/12/16 08:53 Miscellaneous Information 1 Q3D TD 12/15/16 09:00 (Levemir Inj) 12 units Q12HR SQ 12/12/16 10:00 12/12/16 10:43 Urinary Catheter: No Vascular Central Line Catheter: No A/P Problem List: (1) Pneumonia ICD Code: J18.9 Status: Acute (2) Atrial flutter with rapid ventricular response ICD Code: I48.92 Status: Acute (3) Type 2 diabetes mellitus ICD Code: E11.9 Status: Chronic (4) Hyponatremia ICD Code: E87.1 Status: Acute (5) Neuropathy ICD Code: G62.9 Status: Chronic (6) Chronic pain ICD Code: G89.29 Status: Chronic Assessment and Plan 76-year-old male with a PMH of atrial fibrillation s/p ablation x2, on Xarelto, arthritis, COPD, DM, gastroparesis, GERD, and chronic neuropathic pain who presents with worsening SOB, palpitations, and increased lower extremity swelling since October hospitalization for afib with ablation done by Dr. Viveros. PCP saw patient earlier this week and provided 4 days of digoxin for rapid heart rate and Lasix for lower extremity swelling. Healthcare Associated Pneumonia of LLL (patient hospitalized last month) - left lung base consolidation on CXR, images reviewed by me - S/p cefepime and aztreonam for HCAP in ER - Continue on IV Cefepime and po Azithro - Duonebs prn Atrial flutter with RVR - S/p IV Cardizem 15mg x1 in the ER, heart rate improved - ACS ruled out with negative serial cardiac enzymes and EKG without acute ST changes - EKG reviewed by me, shows atrial flutter with RVR - Monitor on tele - Digoxin subtherapeutic at 0.6 on admission, patient still tachycardic, given IV Digoxin 0.5mg x1 today now - Consult patient's extension service specialist in charge Dr. Viveros Chest Pain, atypical - suspect pleuritic pains with pneumonia as above - ACS ruled out as above Uncontrolled Type 2 diabetes mellitus with hyperglycemia on admission - Blood glucose 411 on admission, HgbA1c 8.5 on 09/23/16 - Accu-Cheks and cover with medium-dose NovoLog sliding scale coverage - Hypoglycemia protocol - Restart patient's Lantus 12u bid (converted to Levemir) Mild hyponatremia with sodium 133 - Repeat BMP with Na 138 today, resolved Chronic Neuropathic Pain - continue home Fentanyl and Morphine Lower Extremity Edema - unclear etiology, last Echo 09/23/16 with EF 55-60% - elevate legs - continue patient's Lasix 20mg bid DVT prophylaxis - continue home Xarelto Written by Josi Santamaria, acting as scribe for Dr. Driscoll on 12/12/16 at 09:35. Attending Statement The documentation accurately reflects the work performed [id number] by Dr. Americo francis on 12/12/16 at 09:35. Problem Qualifiers (1) Pneumonia: Qualified Code: J18.1 - Pneumonia of left lower lobe due to infectious organism (2) Type 2 diabetes mellitus: Josi Santamaria PA-C Dec 12, 2016 12:52 Pro Driscoll MD Dec 13, 2016 20:51
[2016-12-12] MEDS: AZITHROMYCIN 250 MG TAB PO SCH (14:31)
--- NOTE | 2016-12-12 17:12 | EKG ---
Date Performed: 12/11/2016 Time Performed: 18:34:18 PTAGE: 76 years EKG: Supraventricular tachycardia thats probably 2:1 atrial flutter, Sinus tachycardia can not b e entirely excluded. LOW QRS VOLTAGE IN EXTREMITY LEADS POSSIBLE ANTERIOR MYOCARDIAL INFARCTION When compared to previous tracing, the supraventricular Tachycardia is new, but otherwise no other signifi cant serial Change. ABNORMAL ECG PREVIOUS TRACING : 11/29/2016 02.50 DOCTOR: Delia Bustillos Interpretating Date/Time 12/12/2016 17:11:07
--- NOTE | 2016-12-12 17:14 | EKG ---
Date Performed: 12/12/2016 Time Performed: 00:19:40 PTAGE: 76 years EKG: ATRIAL FLUTTER/TACHYCARDIA WITH RAPID VENTRICULAR RESPONSE BORDERLINE LEFT AXIS DEVIATION L OW QRS VOLTAGE IN EXTREMITY LEADS ABNORMAL QRS-T ANGLE When compared to previous tracing, the ventric ular response of The atrial flutter is under better control, but there is no other Significant seria l change. ABNORMAL ECG PREVIOUS TRACING : 12/11/2016 18.34 DOCTOR: Delia Bustillos Interpretating Date/Time 12/12/2016 17:13:38
[2016-12-12] MEDS ORDERED: DILTIAZEM HCL 25 MG/5 ML VIAL IVP ONE (17:15)
[2016-12-12] MEDS ORDERED: AMIODARONE INJ 150 MG in DEXTROSE 5% IN WATER 100ML INJ 97 ML IV ONE ×2 (17:15)
[2016-12-12] MEDS ORDERED: DILTIAZEM INJ 125 MG in SODIUM CHLORIDE 0.9% INJ 100 ML IV SCH (17:15)
[2016-12-12] MEDS: AMIODARONE INJ 450 MG in DEXTROSE 5% IN WATE(EXCEL) INJ 241 ML IV SCH ×2 (18:19)
--- NOTE | 2016-12-12 18:48 | EKG ---
Date Performed: 12/12/2016 Time Performed: 06:47:30 PTAGE: 76 years EKG: ATRIAL FLUTTER/TACHYCARDIA WITH RAPID VENTRICULAR RESPONSE LOW QRS VOLTAGE IN EXTREMITY DANYELLE DS ABNORMAL QRS-T ANGLE ABNORMAL ECG PREVIOUS TRACING : 12/12/2016 00.19 Since previous tracing, no significant change noted DOCTOR: Delia Bustillos Interpretating Date/Time 12/12/2016 18:48:02
--- NOTE | 2016-12-12 21:44 | MB ---
cc: SIOBHAN MARIO MD DATE OF CONSULTATION 12/12/16 REASON FOR CONSULTATION Atrial fibrillation, chest pain. HISTORY OF PRESENT ILLNESS The patient is a 76-year-old white male with a history of paroxysmal atrial fibrillation, status post two ablation procedures by Dr. Viveros, diabetes, hypertension, hyperlipidemia, hypothyroidism, COPD, gastroesophageal reflux disease who presented to the hospital with chest pain. He was found to be in atrial fibrillation with a rapid ventricular response. About five days ago, he developed a bilateral lower chest chest discomfort described as "sharp". Eventually the discomfort diminished in severity, although was still present in a constant fashion throughout the day. Yesterday he developed more severe substernal chest pain described as "sharp" increasing with deep inspiration. He denies mikayla dyspnea, palpitations, lightheadedness, syncope, near-syncope, paroxysmal nocturnal dyspnea. Since his last ablation procedure a couple weeks ago, he has had increased pedal edema. He reports compliance with his medications. PAST MEDICAL HISTORY 1. Diabetes. 2. COPD. 3. Hypertension 4. Hypothyroidism. 5. Hyperlipidemia. 6. Gastroesophageal reflux disease. 7. Paroxysmal atrial fibrillation initially diagnosed about a year ago. He is status post ablation procedures August 2016 and October [address] Viveros. MEDICATIONS Cardiac medications at home 1. Xarelto 20 mg daily. 2. Atorvastatin 40 mg q.h.s. 3. Amiodarone 200 mg q.h.s. 4. Aspirin 81 mg daily. ALLERGIES FLAGYL FLOXIN LATEX ADHESIVES FAMILY HISTORY Noncontributory. SOCIAL HISTORY The patient smokes about a pack of cigarettes per day. He denies alcohol abuse. REVIEW OF SYSTEMS As in the history of present illness otherwise negative or noncontributory. He also denies headache, visual changes, abdominal pain, melena, dyspepsia, bright red blood per rectum. PHYSICAL EXAMINATION VITAL SIGNS: Blood pressure 137/74 with a pulse of 125, respirations 20. GENERAL: He is a well-developed, well-nourished white male in no acute distress HEENT: Jugular venous pressure is normal. Carotid pulses are 2+ bilaterally and without bruits. CHEST: Examination of the chest reveals diminished breath sounds diffusely. CARDIAC: On cardiac examination, he has a tachycardic irregular rhythm without definite S3 or murmur. ABDOMEN: On abdominal examination, he has a soft, nontender abdomen. Bowel sounds are present. There is no definite hepatosplenomegaly. EXTREMITIES: Examination of the extremities reveals no clubbing or cyanosis. There is 1+ pretibial edema bilaterally. LABORATORY DATA WBC 5.2, hemoglobin 12.9, platelets 193, potassium 3.5, BUN 18, creatinine 0.97, CK 35, INR 1.3. IMAGING STUDIES Chest x-ray shows new consolidative changes in the left base. CARDIOLOGY STUDIES EKG from 12/12/2016 at 06:47 a.m. shows atrial flutter/atrial tachycardia with rapid ventricular response, poor R-wave progression. IMPRESSION Paroxysmal atrial flutter/atrial tachycardia with a rapid ventricular response, very atypical chest pain in a 76-year-old white male with a history of atrial fibrillation status post ablation procedures twice in the last three months, history of hypertension, diabetes, COPD, hyperlipidemia, gastroesophageal reflux disease. At this time, he remains in this atrial flutter dysrhythmia with heart rates in the 120s. His chest pains the past few days are extremely atypical for myocardial ischemia. Despite constant chest discomfort for the past several days, cardiac enzymes are negative for myocardial infarction. No definite acute ST-segment or T-wave changes are seen on EKG. There is some pleuritic component to the chest pain at this time. RECOMMENDATIONS 1. Start intravenous amiodarone and intravenous Cardizem for heart rate control. 2. Continue Xarelto given his high thromboembolic risk. 3. Consider ruling out pulmonary embolism, although overall I doubt his chest pains are due to pulmonary embolism. MD ARIADNA Murray/ /5:02 PM /9:33 PM ASHKAN
[2016-12-12] MEDS: TAMSULOSIN HCL 0.4 MG CAP PO SCH (21:58)
[2016-12-12] MEDS: ATORVASTATIN 40 MG TAB PO SCH (21:59)
[2016-12-12] MEDS: traZODone HCL 100 MG TAB PO SCH (21:59)
[2016-12-13] VITALS (7 sets, daily range): BP systolic 95–151; BP diastolic 54–75; PULSE 64–104; RESP 17–20; TEMP 97.3–98.1; O2SAT 95–97
[2016-12-13] MEDS: MORPHINE SULFATE 30 MG TAB PO PRN ×4 (00:05→21:36)
[2016-12-13] MEDS: INSULIN ASPART SUPPLEMENTAL SCALE SQ SCH ×4 (07:00→21:39)
[2016-12-13] MEDS: AMIODARONE INJ 450 MG in DEXTROSE 5% IN WATE(EXCEL) INJ 241 ML IV SCH ×2 (07:45)
[2016-12-13] MEDS: SODIUM CHLORIDE 0.9% FLUSH 5 ML FLUSH FLUSH SCH ×2 (09:00→21:00)
[2016-12-13] MEDS: INSULIN DETEMIR 100 UNITS/ML VIAL SQ SCH ×2 (09:00→21:40)
[2016-12-13] MEDS: SUCRALFATE 1 GM TAB PO SCH ×3 (09:09→17:11)
[2016-12-13] MEDS: PANTOPRAZOLE SOD 40 MG DELAYED RELEASE TAB PO SCH (09:09)
[2016-12-13] MEDS: RIVAROXABAN 20 MG TAB PO SCH (09:09)
[2016-12-13] MEDS: FUROSEMIDE 20 MG TAB PO SCH ×2 (09:09→21:36)
[2016-12-13] MEDS: CEFEPIME INJ 2,000 MG in SODIUM CHLORIDE 0.9% INJ 100 ML IV SCH ×2 (09:10→21:34)
[2016-12-13] MEDS: METOCLOPRAMIDE HCL 10 MG TAB PO SCH ×4 (09:10→21:36)
[2016-12-13] MEDS: LEVOTHYROXINE SODIUM 200 MCG TAB PO SCH (09:10)
[2016-12-13] MEDS: TIOTROPIUM BROMIDE 18 MCG INH INH SCH (09:10)
[2016-12-13] MEDS: AZITHROMYCIN 250 MG TAB PO SCH (09:10)
[2016-12-13] MEDS: FAMOTIDINE 20 MG TAB PO SCH ×2 (09:10→21:35)
--- NOTE | 2016-12-13 10:31 | PD.CARD.PN ---
Subjective Subjective Remarks Feeling "much better". Constant CP past few days now much improved, still with "sharp", constant SSCP, increases with deep inspiration. No SOB, palpitations, dizziness. Objective Medications Item Value Date Time Amiodarone HCl 250 ml @ 0 mls/hr 12/12/16 1715 450 mg/Dextrose CONTINUOUS/IV 12/13/16 0745 Diltiazem HCl 125 125 ml @ 0 mls/hr 12/12/16 1715 mg/Sodium Chloride TITRATE/IV 12/12/16 1819 Furosemide 20 mg 12/12/16 0900 (Lasix) BID/PO 12/13/16 0909 Atorvastatin 40 mg 12/11/16 2100 Calcium HS/PO 12/12/16 2159 (Lipitor) Rivaroxaban 20 mg 12/12/16 0900 (Xarelto) DAILY/PO 12/13/16 0909 Vital Signs / I&O Vital Signs Date Time Temp Pulse Resp B/P Pulse Ox O2 Delivery O2 Flow Rate FiO2 12/13/16 08:00 97.7 68 20 122/60 96 12/13/16 04:00 98.1 64 18 102/58 97 12/13/16 00:00 97.4 66 18 95/54 95 12/12/16 22:54 95 Nasal Cannula 4.00 12/12/16 20:00 97.7 72 18 110/56 97 12/12/16 18:00 98.1 80 20 137/62 96 12/12/16 16:41 97.7 139 20 137/74 95 12/12/16 13:10 108 12/12/16 12:00 95.8 117 20 113/66 95 I/O 12/12/16 12/12/16 12/12/16 12/13/16 12/13/16 12/13/16 07:00 15:00 23:00 07:00 15:00 23:00 Intake Total 960 ml 240 ml 120 ml Output Total 50 ml Balance 960 ml 240 ml 70 ml Intake Oral 960 ml 240 ml 120 ml Output Urine Total 50 ml # Voids 2 2 1 Physical Exam GENERAL: Well developed, well nourished. No acute distress. HEENT: Jugular venous pressure is normal. CHEST: Lungs clear to auscultation bilaterally. Unlabored respiratory effort. CARDIAC: Irregular rate and rhythm without S3, S4, or murmur. ABDOMEN: Soft, nontender, no hepatosplenomegaly. Bowel sounds present. EXTREMITIES: No clubbing, cyanosis, or edema. Assessment and Plan Problem List: (1) Paroxysmal atrial fibrillation Assessment and Plan: Remains in what appears to be atrial fib/flutter. HR's now normal. Patient mostly asymptomatic. REC try to change to oral Amiodarone, oral Cardizem continue Xarelto (2) Atypical chest pain Assessment and Plan: Likely noncardiac CP. Despite constant prolonged CP, cardiac enzymes negative for [place]. The pain also improves with palpation suggesting musculoskeletal component. (3) Hypertension Assessment and Plan: Stable. Normotensive. Code Status full code Discussed Condition With patient Problem Qualifiers (1) Hypertension: Qualified Code: I10 - Essential hypertension Benji Cisse MD Dec 13, 2016 10:31
[2016-12-13] MEDS: DILTIAZEM-CD 240 MG CAP ER PO SCH (10:52)
[2016-12-13] MEDS: AMIODARONE 200 MG TAB PO SCH ×2 (10:52→21:35)
[2016-12-13] MEDS ORDERED: IOHEXOL 350 MG/ML 10 ML VIAL (for RAD DIAG) IV ONE (18:22)
--- NOTE | 2016-12-13 18:40 | RADRPT ---
EXAM DATE/TIME: 12/13/2016 18:11 [facility] COMPARISON: CT PULMONARY ANGIOGRAM, June 02, 2016, 17:40. INDICATIONS : Evaluate for emboli. IV CONTRAST: 55 cc Omnipaque 350 (iohexol) IV RADIATION DOSE: 15.66 CTDIvol (mGy) MEDICAL HISTORY : Cardiovascular disease. Chronic obstructive pulmonary disease. Hypertension. SURGICAL HISTORY : None. ENCOUNTER: Initial ACUITY: 1 day PAIN SCALE: 0/10 LOCATION: Bilateral chest TECHNIQUE: Volumetric scanning of the chest was performed using a pulmonary embolism protocol MIP images were re constructed. Using automated exposure control and adjustment of the mA and/or kV according to patien t size, radiation dose was kept as low as reasonably achievable to obtain optimal diagnostic quality images. FINDINGS: There are increasing bilateral pleural effusions and bibasilar consolidative changes. There is no ev idence of central pulmonary emboli. There is no pericardial effusion. There is no axillary adenopat hy. Portion of liver and spleen identified are free of focal defects. CONCLUSION: Increasing bibasilar parenchymal changes and pleural effusion. Negative for central pulmonary emboli . Henry Sims MD FACR on December 13, 2016 at 18:25 Board Certified Radiologist. This report was verified electronically.
--- NOTE | 2016-12-13 21:23 | HHI.PR ---
Subjective Remarks Patient seen today around 5 PM. He says he is feeling a little better than yesterday, but still has pleuritic parasternal chest pain. Heart rate is much better controlled today. Discussed with nursing. Objective Vital Signs Date Time Temp Pulse Resp B/P Pulse Ox O2 Delivery O2 Flow Rate FiO2 12/13/16 16:00 97.9 104 20 127/75 96 12/13/16 12:00 98.0 67 20 114/62 96 12/13/16 09:05 68 12/13/16 08:00 97.7 68 20 122/60 96 12/13/16 04:00 98.1 64 18 102/58 97 12/13/16 00:00 97.4 66 18 95/54 95 12/12/16 22:54 95 Nasal Cannula 4.00 I/O 12/12/16 12/12/16 12/12/16 12/13/16 12/13/16 12/13/16 07:00 15:00 23:00 07:00 15:00 23:00 Intake Total 960 ml 240 ml 120 ml 720 ml Output Total 50 ml 675 ml Balance 960 ml 240 ml 70 ml 45 ml Intake Oral 960 ml 240 ml 120 ml 720 ml Output Urine Total 50 ml 675 ml # Voids 2 2 1 # Bowel Movements 0 Result Diagram: 12/12/16 0734 12/12/1634 Imaging Last Impressions Chest X-Ray 12/11/161851 Signed Impressions: Service Date/Time: November 19:05 - CONCLUSION: New consolidative changes left base. Henry Sims MD FACR Objective Remarks GENERAL: patient sitting up in bed. No acute distress. Alert and oriented 3. SKIN: Warm and dry. HEAD: Normocephalic. EYES: No scleral icterus. No injection or drainage. NECK: Supple, trachea midline. No JVD. CARDIOVASCULAR: rhythm irregularly irregular, normal rate,no gallops, or rubs. RESPIRATORY: Breath sounds equal bilaterally. No accessory muscle use. GASTROINTESTINAL: Abdomen soft, non-tender, nondistended. MUSCULOSKELETAL: No cyanosis, or edema. BACK: Nontender without obvious deformity. No CVA tenderness. A/P Assessment and Plan 76-year-old male with a PMH of atrial fibrillation s/p ablation x2, on Xarelto, arthritis, COPD, DM, gastroparesis, GERD, and chronic neuropathic pain who presents with worsening SOB, palpitations, and increased lower extremity swelling since October hospitalization for afib with ablation done by Dr. Viveros. PCP saw patient earlier this week and provided 4 days of digoxin for rapid heart rate and Lasix for lower extremity swelling. //Healthcare Associated Pneumonia of LLL (patient hospitalized last month) - left lung base consolidation on CXR, images reviewed by me - -Status post cefepime and azithromycin in the ER. -12/13. We'll continue cefepime, however discontinue azithromycin and start clindamycin for aspiration coverage in the setting of possible gastroparesis exacerbation. //Atrial flutter with RVR - S/p IV Cardizem 15mg x1 in the ER, heart rate improved - ACS ruled out with negative serial cardiac enzymes and EKG without acute ST changes - EKG reviewed by me, shows atrial flutter with RVR - Monitor on tele - Digoxin subtherapeutic at 0.6 on admission, patient still tachycardic, given IV Digoxin 0.5mg x1 on 12/12 Cardiology following. Appreciate assistance. Heart rate now controlled on long-acting diltiazem, amiodarone. -Ordered EKG for QTC as patient did get azithromycin. //Chest Pain, pleuritic -Likely secondary to pneumonia as above. - ACS ruled out as above -12/13. CT pulmonary angiogram with pleural effusion. Does not appear to be large enough to tap. Likely secondary to atrial fibrillation. We'll need to follow up with repeat imaging as outpatient. //Uncontrolled Type 2 diabetes mellitus with hyperglycemia on admission - Blood glucose 411 on admission, HgbA1c 8.5 on 09/23/16 - Accu-Cheks and cover with medium-dose NovoLog sliding scale coverage - Hypoglycemia protocol -12/13. Glucose relatively well controlled. Continue patient's Lantus 12u bid ( converted to Levemir) //Mild hyponatremia with sodium 133. Secondary to hyperglycemia corrected sodium was normal. //Gastroparesis exacerbation suspected. Consult gastroenterology. //Chronic Neuropathic Pain - continue home Fentanyl and Morphine //Lower Extremity Edema - unclear etiology, last Echo 09/23/16 with EF 55-60%. BNP is normal. Likely secondary to atrial fibrillation. - elevate legs - continue patient's Lasix 20mg bid DVT prophylaxis - continue home Xarelto Discharge Planning possibly discharge in 1-2 days. pending gastroenterology evaluation Pro Driscoll MD Dec 13, 2016 21:23
[2016-12-13] MEDS: traZODone HCL 100 MG TAB PO SCH (21:34)
[2016-12-13] MEDS: ATORVASTATIN 40 MG TAB PO SCH (21:34)
[2016-12-13] MEDS: TAMSULOSIN HCL 0.4 MG CAP PO SCH (21:35)
[2016-12-13] MEDS: CLINDAMYCIN INJ 900 MG in SODIUM CHLORIDE 0.9% INJ 100 ML IV SCH (23:13)
[2016-12-14] VITALS (13 sets, daily range): BP systolic 95–131; BP diastolic 54–65; PULSE 61–135; RESP 16–20; TEMP 97.3–98.4; O2SAT 92–97
[2016-12-14] MEDS ORDERED: DILTIAZEM 125 MG/NS 100 ML IV SCH ×2 (02:15)
[2016-12-14] MEDS ORDERED: DILTIAZEM HCL 25 MG/5 ML VIAL IV PUSH ONE (02:15)
[2016-12-14 03:27] LABS: AUTOMATED NEUTROPHIL # 5.3 TH/MM3 (1.8-7.7); BASOPHIL % 0.6 % (0.0-2.0); EOSINOPHIL % 0.1 % (0.0-4.0); HEMATOCRIT 38.9 % (39.0-51.0); HEMO FLAGS DIFF FINAL; LYMPH % 9.5 % (9.0-44.0); LYMPHOCYTE # 0.6 TH/MM3 (1.0-4.8); MEAN CELL VOLUME 84.4 FL (80.0-100.0); MEAN CORPUSCULAR HEMOGLOBIN 28.8 PG (27.0-34.0); MEAN CORPUSCULAR HGB CONC 34.1 % (32.0-36.0); MONO % 9.8 % (0.0-8.0); PLATELET COUNT 211 TH/MM3 (150-450); RED CELL DISTRIBUTION WIDTH 17.2 % (11.6-17.2); WHITE BLOOD COUNT 6.6 TH/MM3 (4.0-11.0)
[2016-12-14 03:53] LABS: BICARBONATE 36.4 MEQ/L (21.0-32.0); POTASSIUM 3.5 MEQ/L (3.5-5.1)
[2016-12-14] MEDS: CLINDAMYCIN INJ 900 MG in SODIUM CHLORIDE 0.9% INJ 100 ML IV SCH ×3 (06:58→23:35)
[2016-12-14] MEDS: INSULIN ASPART SUPPLEMENTAL SCALE SQ SCH ×4 (07:00→20:09)
[2016-12-14] MEDS: CEFEPIME INJ 2,000 MG in SODIUM CHLORIDE 0.9% INJ 100 ML IV SCH ×3 (07:01→23:42)
--- NOTE | 2016-12-14 08:12 | HHI.PR ---
Subjective Remarks hypoglycemic episode with tachycardia overnight. Patient says he takes even more insulin than he is getting here at home, both on long-acting and sliding scale. Of decrease insulin. We'll order every 3 hour glucose checks overnight. Patient did have some nausea but no vomiting. We'll order Zofran. Recent QTC acceptable. Gastroparesis. Awaiting gastroenterology consult. From 12/13/16: Patient seen today around 5 PM. He says he is feeling a little better than yesterday, but still has pleuritic parasternal chest pain. Heart rate is much better controlled today. Discussed with nursing. Objective Vital Signs Date Time Temp Pulse Resp B/P Pulse Ox O2 Delivery O2 Flow Rate FiO2 12/14/16 04:15 97.3 65 20 108/58 96 12/14/16 04:15 Nasal Cannula 3.00 12/14/16 03:02 Nasal Cannula 3.00 12/14/16 03:02 108 20 95/58 95 12/14/16 02:47 99 16 118/58 92 12/14/16 02:47 Nasal Cannula 3.00 12/14/16 02:31 Nasal Cannula 3.00 12/14/16 02:31 113 18 117/60 93 12/14/16 02:16 Nasal Cannula 3.00 12/14/16 02:16 135 18 126/65 95 12/14/16 01:30 132 18 131/63 95 12/14/16 01:30 Nasal Cannula 3.00 12/14/16 01:30 Nasal Cannula 3.00 12/14/16 01:30 97.4 132 20 131/63 12/14/16 00:00 Nasal Cannula 3.00 12/14/16 00:00 98.4 61 18 96/54 97 12/13/16 20:00 Nasal Cannula 3.00 12/13/16 20:00 97.3 89 17 151/67 95 12/13/16 20:00 66 12/13/16 16:00 97.9 104 20 127/75 96 12/13/16 12:00 98.0 67 20 114/62 96 12/13/16 09:05 68 I/O 12/13/16 12/13/16 12/13/16 12/14/16 12/14/16 12/14/16 07:00 15:00 23:00 07:00 15:00 23:00 Intake Total 120 ml 720 ml 280 ml 180 ml Output Total 50 ml 675 ml 400 ml Balance 70 ml 45 ml 280 ml -220 ml Intake Oral 120 ml 720 ml 280 ml 180 ml Output Urine Total 50 ml 675 ml 400 ml # Voids 2 # Bowel Movements 0 Result Diagram: 12/14/1631812/14/16318 Objective Remarks GENERAL: patient sitting up in bed. No acute distress. Alert and oriented 3.exam unchanged. SKIN: Warm and dry. HEAD: Normocephalic. EYES: No scleral icterus. No injection or drainage. NECK: Supple, trachea midline. No JVD. CARDIOVASCULAR: rhythm irregularly irregular, normal rate,no gallops, or rubs. RESPIRATORY: Breath sounds equal bilaterally. No accessory muscle use. GASTROINTESTINAL: Abdomen soft, non-tender, nondistended. MUSCULOSKELETAL: No cyanosis, or edema. BACK: Nontender without obvious deformity. No CVA tenderness. A/P Assessment and Plan 12/14/16 Heart rate Still elevated. Appreciate cardiology assistance. Suspected gastroparesis. follow-up gastroenterology evaluation for suspected gastroparesis Hypoglycemia. Likely secondary to diabetic diet here. We will decrease long- acting insulin 76-year-old male with a PMH of atrial fibrillation s/p ablation x2, on Xarelto, arthritis, COPD, DM, gastroparesis, GERD, and chronic neuropathic pain who presents with worsening SOB, palpitations, and increased lower extremity swelling since October hospitalization for afib with ablation done by Dr. Viveros. PCP saw patient earlier this week and provided 4 days of digoxin for rapid heart rate and Lasix for lower extremity swelling. //Healthcare Associated Pneumonia of LLL (patient hospitalized last month) - left lung base consolidation on CXR, images reviewed by me - -Status post cefepime and azithromycin in the ER. -12/13. We'll continue cefepime, however discontinue azithromycin and start clindamycin for aspiration coverage in the setting of possible gastroparesis exacerbation. //Atrial flutter with RVR - S/p IV Cardizem 15mg x1 in the ER, heart rate improved - ACS ruled out with negative serial cardiac enzymes and EKG without acute ST changes - EKG reviewed by me, shows atrial flutter with RVR - Monitor on tele - Digoxin subtherapeutic at 0.6 on admission, patient still tachycardic, given IV Digoxin 0.5mg x1 on 12/12 Cardiology following. Appreciate assistance. Heart rate now controlled on long-acting diltiazem, amiodarone. - EKG for QTC under 400 -12/14. Heart rate still elevated. Appreciate cardiology assistance. //Chest Pain, pleuritic -Likely secondary to pneumonia as above. - ACS ruled out as above -12/13. CT pulmonary angiogram with pleural effusion. Does not appear to be large enough to tap. Likely secondary to atrial fibrillation. We'll need to follow up with repeat imaging as outpatient. //Uncontrolled Type 2 diabetes mellitus with hyperglycemia on admission - Blood glucose 411 on admission, HgbA1c 8.5 on 09/23/16 - Accu-Cheks and cover with medium-dose NovoLog sliding scale coverage - Hypoglycemia protocol -12/13. Glucose relatively well controlled. Continue patient's Lantus 12u bid ( converted to Levemir) -12/14.Hypoglycemia. Likely secondary to diabetic diet here. We will decrease long-acting insulin //Gastroparesis exacerbation suspected. Consult gastroenterology. //Chronic Neuropathic Pain - continue home Fentanyl and Morphine //Lower Extremity Edema - unclear etiology, last Echo 09/23/16 with EF 55-60%. BNP is normal. Likely secondary to atrial fibrillation. - elevate legs - continue patient's Lasix 20mg bid DVT prophylaxis - continue home Xarelto Discharge Planning possibly discharge in 1-2 days. pending gastroenterology evaluation Pro Driscoll MD Dec 14, 2016 08:12
[2016-12-14] MEDS: FUROSEMIDE 20 MG TAB PO SCH ×2 (08:38→20:08)
[2016-12-14] MEDS: LEVOTHYROXINE SODIUM 200 MCG TAB PO SCH (08:38)
[2016-12-14] MEDS: FAMOTIDINE 20 MG TAB PO SCH ×2 (08:38→20:07)
[2016-12-14] MEDS: METOCLOPRAMIDE HCL 10 MG TAB PO SCH ×4 (08:39→20:06)
[2016-12-14] MEDS: RIVAROXABAN 20 MG TAB PO SCH (08:39)
[2016-12-14] MEDS: AMIODARONE 200 MG TAB PO SCH ×2 (08:39→20:07)
[2016-12-14] MEDS: PANTOPRAZOLE SOD 40 MG DELAYED RELEASE TAB PO SCH (08:39)
[2016-12-14] MEDS: SUCRALFATE 1 GM TAB PO SCH ×3 (08:40→16:46)
[2016-12-14] MEDS: DILTIAZEM-CD 240 MG CAP ER PO SCH (08:40)
[2016-12-14] MEDS: TIOTROPIUM BROMIDE 18 MCG INH INH SCH (08:40)
[2016-12-14] MEDS: INSULIN DETEMIR 100 UNITS/ML VIAL SQ SCH ×2 (08:41→20:10)
[2016-12-14] MEDS: SODIUM CHLORIDE 0.9% FLUSH 5 ML FLUSH FLUSH SCH ×2 (08:41→20:13)
[2016-12-14] MEDS: MORPHINE SULFATE 30 MG TAB PO PRN ×3 (08:41→20:08)
--- NOTE | 2016-12-14 08:42 | RADRPT ---
EXAM DATE/TIME: 12/14/2016 08:00 [facility] COMPARISON: No previous studies available for comparison. INDICATIONS : Bilateral leg swelling. MEDICAL HISTORY : Hypertension. Chronic obstructive pulmonary disease. Gastroesophageal reflux disease. Thyroid disease . Anticoagulant therapy, Xarelto. Atrial fibrillation. Gastroparesis. Arthritis. Diabetes. SURGICAL HISTORY : Cholecystectomy. Neurologic surgery, right leg. Cardiac ablation. Cardiac catheterization. Orthopedic surgery, left shoulder. ENCOUNTER: Initial ACUITY: 1 week PAIN SCORE: 1/10 LOCATION: Bilateral legs. TECHNIQUE: Venous ultrasound of the left and right leg was performed from the inguinal ligament to the proximal calf. Real-time, color Doppler and spectral tracing, compression and augmentation techniques were us ed. FINDINGS: RIGHT LEG: There is normal compressibility of the deep venous system from the inguinal region to the proximal ca lf. No echogenic clot is seen in the lumen of the common femoral, femoral, popliteal, and posterior tibial veins. There is a normal response of the venous system to proximal and distal augmentation an d respiration. LEFT LEG: There is normal compressibility of the deep venous system from the inguinal region to the proximal ca lf. No echogenic clot is seen in the lumen of the common femoral, femoral, popliteal, and posterior tibial veins. There is a normal response of the venous system to proximal and distal augmentation an d respiration. CONCLUSION: Normal examination. Adriel Ty MD on December 14, 2016 at 8:41 Board Certified Radiologist. This report was verified electronically.
--- NOTE | 2016-12-14 11:07 | PD.CARD.PN ---
Subjective Subjective Remarks Feels "OK". No dizziness, palpitations, dyspnea. Episode of hypoglycemia last night associated with elevated HR. Substernal CP persists, mild to moderate, improves with palpation and now improves with deep inspiration. Objective Medications Item Value Date Time Diltiazem HCl 125 125 ml @ 0 mls/hr 12/14/16 0215 mg/Sodium Chloride TITRATE/IV 12/14/16 0222 Amiodarone HCl 200 mg 12/13/16 1045 (Cordarone) Q12HR/PO 12/14/16 0839 Diltiazem HCl 240 mg 12/13/16 1045 (Cardizem Cd) DAILY/PO 12/14/16 0840 Rivaroxaban 20 mg 12/12/16 0900 (Xarelto) DAILY/PO 12/14/16 0839 Furosemide 20 mg 12/12/16 0900 (Lasix) BID/PO 12/14/16 0838 Atorvastatin 40 mg 12/11/16 2100 Calcium HS/PO 12/13/16 2134 (Lipitor) Vital Signs / I&O Vital Signs Date Time Temp Pulse Resp B/P Pulse Ox O2 Delivery O2 Flow Rate FiO2 12/14/16 09:08 Nasal Cannula 4.00 12/14/16 09:08 65 12/14/16 08:00 97.6 64 20 114/61 94 12/14/16 04:15 97.3 65 20 108/58 96 12/14/16 04:15 Nasal Cannula 3.00 12/14/16 03:02 Nasal Cannula 3.00 12/14/16 03:02 108 20 95/58 95 12/14/16 02:47 99 16 118/58 92 12/14/16 02:47 Nasal Cannula 3.00 12/14/16 02:31 Nasal Cannula 3.00 12/14/16 02:31 113 18 117/60 93 12/14/16 02:16 Nasal Cannula 3.00 12/14/16 02:16 135 18 126/65 95 12/14/16 01:30 132 18 131/63 95 12/14/16 01:30 Nasal Cannula 3.00 12/14/16 01:30 Nasal Cannula 3.00 12/14/16 01:30 97.4 132 20 131/63 12/14/16 00:00 Nasal Cannula 3.00 12/14/16 00:00 98.4 61 18 96/54 97 12/13/16 20:00 Nasal Cannula 3.00 12/13/16 20:00 97.3 89 17 151/67 95 12/13/16 20:00 66 12/13/16 16:00 97.9 104 20 127/75 96 12/13/16 12:00 98.0 67 20 114/62 96 I/O 12/13/16 12/13/16 12/13/16 12/14/16 12/14/16 12/14/16 07:00 15:00 23:00 07:00 15:00 23:00 Intake Total 120 ml 720 ml 280 ml 180 ml Output Total 50 ml 675 ml 400 ml Balance 70 ml 45 ml 280 ml -220 ml Intake Oral 120 ml 720 ml 280 ml 180 ml Output Urine Total 50 ml 675 ml 400 ml # Voids 2 # Bowel Movements 0 Physical Exam GENERAL: Well developed, well nourished. No acute distress. HEENT: Jugular venous pressure is normal. CHEST: Lungs clear to auscultation bilaterally. Unlabored respiratory effort. CARDIAC: Irregular rate and rhythm without S3, S4, or murmur. ABDOMEN: Soft, nontender, no hepatosplenomegaly. Bowel sounds present. EXTREMITIES: No clubbing, cyanosis, or edema. Laboratory Laboratory Tests Test 12/13/16 12/13/16 12/14/16 13:09 22:37 03:19 D-Dimer Quantitative (PE/DVT) 0.68 MG/L FEU Erythrocyte Sedimentation Rate 4 mm/hr White Blood Count 6.6 TH/MM3 Red Blood Count 4.60 MIL/MM3 Hemoglobin 13.3 GM/DL Hematocrit 38.9 % Mean Corpuscular Volume 84.4 FL Mean Corpuscular Hemoglobin 28.8 PG Mean Corpuscular Hemoglobin 34.1 % Concent Red Cell Distribution Width 17.2 % Platelet Count 211 TH/MM3 Mean Platelet Volume 7.4 FL Neutrophils (%) (Auto) 80.0 % Lymphocytes (%) (Auto) 9.5 % Monocytes (%) (Auto) 9.8 % Eosinophils (%) (Auto) 0.1 % Basophils (%) (Auto) 0.6 % Neutrophils # (Auto) 5.3 TH/MM3 Lymphocytes # (Auto) 0.6 TH/MM3 Monocytes # (Auto) 0.6 TH/MM3 Eosinophils # (Auto) 0.0 TH/MM3 Basophils # (Auto) 0.0 TH/MM3 CBC Comment DIFF FINAL Differential Comment Sodium Level 141 MEQ/L Potassium Level 3.5 MEQ/L Chloride Level 99 MEQ/L Carbon Dioxide Level 36.4 MEQ/L Anion Gap 6 MEQ/L Blood Urea Nitrogen 18 MG/DL Creatinine 0.83 MG/DL Estimat Glomerular Filtration 91 ML/MIN Rate Random Glucose 51 MG/DL Calcium Level 8.1 MG/DL C-Reactive Protein 1.04 MG/DL Assessment and Plan Problem List: (1) Paroxysmal atrial fibrillation Assessment and Plan: Remains in what appears to be atrial fib/flutter. HR's now normal. Transient increase in HR's last night at time of hypoglycemia. REC stop IV Cardizem, continue oral Cardizem/Amiodarone continue Xarelto OK for discharge from cardiac standpoint, f/u with Dr. Viveros (2) Atypical chest pain Assessment and Plan: Likely noncardiac CP. Despite constant prolonged CP, which still persists, cardiac enzymes negative for WA. The pain also improves with palpation suggesting musculoskeletal component. Now CP improves with deep inspiration. (3) Hypertension Assessment and Plan: Stable. Normotensive. Code Status full code Discussed Condition With patient Problem Qualifiers (1) Hypertension: Qualified Code: I10 - Essential hypertension Benji Cisse MD Dec 14, 2016 11:07
--- NOTE | 2016-12-14 13:39 | EKG ---
Date Performed: 12/13/2016 Time Performed: 21:32:03 PTAGE: 76 years EKG: ATRIAL FLUTTER/TACHYCARDIA LOW QRS VOLTAGE IN EXTREMITY LEADS ABNORMAL RHYTHM ECG Compared to prior tracing no significant change PREVIOUS TRACING : 12/12/2016 06.47 DOCTOR: Danny Coburn Interpretating Date/Time 12/14/2016 13:37:07
[2016-12-14] MEDS ORDERED: ONDANSETRON HCL 4 MG/2 ML VIAL IV PUSH PRN (16:15)
--- NOTE | 2016-12-14 16:17 | ECHLIM ---
Study Study Date:12/14/2016 STUDY CONCLUSIONS SUMMARY LEFT VENTRICLE: Systolic function was at the lower limits of normal. The estimated ejection fraction was in the range of 50% to 55%. If LV function is below 40, please consider prescribing an ACEI or ARB or document rationale for non-use. PROCEDURE DATA Procedure: Transthoracic echocardiography. Image quality was good. Scanning was performed from the parasternal, apical, and subcostal acoustic windows. Study completion: The patient tolerated the procedure well. Transthoracic echocardiography. M-mode, limited 2D, limited spectral Doppler, and color Doppler. CARDIAC ANATOMY LEFT VENTRICLE: Systolic function was at the lower limits of normal. The estimated ejection fraction was in the range of 50% to 55%. Images were inadequate for LV wall motion assessment. BASIC MEASUREMENTS ADULT NORMAL Left ventricle LV internal dimension, ED, chordal level, 46.7 mm 43-52 PLAX LV internal dimension, ES, chordal level, 36.3 mm 23-38 PLAX Fractional shortening, chordal level, PLAX *22 % >29 LV posterior wall thickness, ED 8.72 mm IVS/LVPW ratio, ED 0.96 <1.3 Ventricular septum Septal thickness, ED 8.41 mm LEGEND: Mean values are shown as u=mean value. Asterisk (*) osborn values outside specified normal range. Prepared and signed by Kyle Luevano [id number]
--- NOTE | 2016-12-14 17:03 | RADRPT ---
EXAM DATE/TIME: 12/14/2016 16:25 [facility] COMPARISON: No previous studies available for comparison. INDICATIONS : Nausea MEDICAL HISTORY : Hypertension. Hiatal hernia. Chronic obstructive pulmonary disease. Diabetes A-fib SURGICAL HISTORY : Cholecystectomy. ENCOUNTER: Initial ACUITY: 3 days PAIN SCORE: 3/10 LOCATION: Abdomen FINDINGS: Minimal parenchymal changes are seen in the left lung base. The right lung is clear. The bowel gas pattern is unremarkable. Stool is seen scattered throughout the colon. Surgical sutures are seen in the abdomen. CONCLUSION: Non-specific bowel gas pattern. Henry Sims MD FACR on December 14, 2016 at 16:50 Board Certified Radiologist. This report was verified electronically.
[2016-12-14 18:18] LABS: ALKALINE PHOSPHATASE 130 U/L (45-117); ALT (GPT) 20 U/L (12-78); AST (GOT) 9 U/L (15-37); INDIRECT BILIRUBIN 0.2 MG/DL (0.0-0.8); TOTAL BILIRUBIN ADULT 0.4 MG/DL (0.2-1.0)
[2016-12-14] MEDS: traZODone HCL 100 MG TAB PO SCH (20:06)
[2016-12-14] MEDS: ATORVASTATIN 40 MG TAB PO SCH (20:06)
[2016-12-14] MEDS: TAMSULOSIN HCL 0.4 MG CAP PO SCH (20:07)
[2016-12-15] VITALS: BP 116/55; PULSE 66; RESP 18; TEMP 98.1; O2SAT 95
[2016-12-15] MEDS: MORPHINE SULFATE 30 MG TAB PO PRN ×2 (03:50→10:57)
[2016-12-15 04:00] VITALS: BP 123/59; PULSE 66; RESP 17; TEMP 97.5; O2SAT 93
[2016-12-15] MEDS: CLINDAMYCIN INJ 900 MG in SODIUM CHLORIDE 0.9% INJ 100 ML IV SCH ×2 (05:46→13:23)
[2016-12-15] MEDS: INSULIN ASPART SUPPLEMENTAL SCALE SQ SCH ×3 (06:46→16:21)
[2016-12-15 08:00] VITALS: BP 122/58; PULSE 63; RESP 20; TEMP 97.9; O2SAT 96
[2016-12-15 08:05] VITALS: PULSE 63
[2016-12-15] MEDS: CEFEPIME INJ 2,000 MG in SODIUM CHLORIDE 0.9% INJ 100 ML IV SCH ×2 (08:35→16:21)
[2016-12-15] MEDS: FAMOTIDINE 20 MG TAB PO SCH (08:36)
[2016-12-15] MEDS: SUCRALFATE 1 GM TAB PO SCH ×3 (08:37→17:15)
[2016-12-15] MEDS: DILTIAZEM-CD 240 MG CAP ER PO SCH (08:37)
[2016-12-15] MEDS: PANTOPRAZOLE SOD 40 MG DELAYED RELEASE TAB PO SCH (08:37)
[2016-12-15] MEDS: FUROSEMIDE 20 MG TAB PO SCH (08:37)
[2016-12-15] MEDS: RIVAROXABAN 20 MG TAB PO SCH (08:37)
[2016-12-15] MEDS: AMIODARONE 200 MG TAB PO SCH (08:37)
[2016-12-15] MEDS: METOCLOPRAMIDE HCL 10 MG TAB PO SCH ×3 (08:37→17:15)
[2016-12-15] MEDS: fentaNYL 100 MCG/HR PATCH T-DERMAL SCH (08:38)
[2016-12-15] MEDS: INSULIN DETEMIR 100 UNITS/ML VIAL SQ SCH (08:41)
[2016-12-15] MEDS: LEVOTHYROXINE SODIUM 200 MCG TAB PO SCH (08:42)
[2016-12-15] MEDS: TIOTROPIUM BROMIDE 18 MCG INH INH SCH (08:44)
[2016-12-15] MEDS: SODIUM CHLORIDE 0.9% FLUSH 5 ML FLUSH FLUSH SCH (08:53)
[2016-12-15] MEDS ORDERED: REMOVE OLD PATCH TD SCH (09:00)
--- NOTE | 2016-12-15 10:07 | PD.CONS ---
HPI History of Present Illness This is a 76 year old male patient who came to the ER on 12/11/16 for evaluation of generalized weakness, palpitations, and lower extremity swelling since he was hospitalized and underwent an ablation for atrial fibrillation in October. He was admitted for atrial fibrillation, atypical chest pain, hospital acquired LLL pneumonia, and hypertension. GI was consulted for nausea, vomiting , epigastric pain with a suspected flare of his gastroparesis. The patient tells me that he was diagnosed with gastroparesis some time ago by imaging. He is on Reglan 10mg po QID along with Miralax and protonix at home for this. He states that for the most part, this is well controlled and that he only occasionally has nausea or vomiting. When he came to the hospital, he reports that he was coughing so hard that he would actually vomit some phlegm, but that he was not actually having nausea. He also was having an intermittent sharp pain in his epigastric area that radiated to both sides, but states he only had this if he coughs or moves and therefore he feels that this is more musculoskeletal. He is still having this at times, if he coughs hard, but states it is much better. He denies any bloating and states he is moving his bowels well. He only occasionally has heartburn or reflux. 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 He had an EGD/Colonoscopy (09/25/15) ----> mild antral gastropathy, otherwise normal, sessile polyp 5-9 mm in the cecum, 2 sessile polyps in the ascending colon. Pathology revealed duodenal mucosa without significant pathologic change, villous architecture within normal limits, gastric mucosa with reactive gastroplasty accompanied by regenerative epithelial changes and lamina propria fibrosis, negative for intestinal metaplasia or dysplasia, H. Pylori organisms are not identified by HP immunostain. (Isabella BurgessP) PFSH Past Medical History Atrial fibrillation on Xarelto status post ablation Gastroparesis COPD GERD Hypothyroidism Atherosclerosis of aorta Arthritis Polyneuropathy History of colon polyps Gastritis Fatty liver Past Surgical History Cholecystectomy Left shoulder repair with metal plate EPS with ablation Cholecystectomy Right leg surgery Bilateral cataract surgery Tonsillectomy (Isabella Burgess) Coded Allergies: Flagyl (Verified Allergy, Severe, 12/11/16) Floxcin (Verified Allergy, Severe, 12/11/16) Latex (Verified Allergy, Severe, 12/11/16) Adhesives (Verified Allergy, Mild, 12/11/16) Medications Allergies Coded Allergies Type Severity Reaction Last Updated Verified Flagyl Allergy Severe 12/11/16 Yes Floxcin Allergy Severe 12/11/16 Yes Latex Allergy Severe 12/11/16 Yes Adhesives Allergy Mild 12/11/16 Yes Active Scripts Medications Dose Route/Sig Days Date Category Dose Instructions Furosemide 20 Mg Tab 20 Mg PO BID 12/11/16 Reported Levothyroxine (Levothyroxine Sodium) 200 Mcg Tab 200 Mcg PO DAILY 11/28/16 Reported Zantac (Ranitidine HCl) 150 Mg Tab 150 Mg PO BID 11/22/16 Reported Fentanyl Patch 72 HR (Fentanyl) 100 Mcg/Hr Patch 100 Mcg T-DERMAL EVERY 2 DAYS 11/22/16 Reported Remove old patch when new one placed. Morphine IR (Morphine Sulfate) 30 Mg Tab 60 Mg PO BID PRN 11/22/16 Reported Protonix (Pantoprazole Sodium) 40 Mg Tab 40 Mg PO DAILY 11/22/16 Reported Novolog Flexpen Inj (Insulin Aspart) 300 Unit/3 Ml Pen 5-15 Units SQ ACHS 11/17/16 Reported PER SLIDING SCALE: 0-150-5 UNITS, 151-200=7 UNITS, 201-250=9 UNITS, 251-300=11 UNITS, 301-350=13 UNITS, 351-400=15 UNITS, 401 & UP=CALL Lantus Inj (Insulin Glargine) 100 Unit/Ml Inj 12 Units SQ Q12HR 11/17/16 Reported Amiodarone (Amiodarone HCl) 200 Mg Tab 200 Mg PO HS 11/17/16 Reported Atorvastatin (Atorvastatin Calcium) 40 Mg Tab 40 Mg PO HS 11/17/16 Reported Ondansetron (Ondansetron HCl) 8 Mg Tab 8 Mg PO Q8HR PRN 11/17/16 Reported Metoclopramide (Metoclopramide HCl) 10 Mg Tab 10 Mg PO QID 11/17/16 Reported Trazodone (Trazodone HCl) 100 Mg Tab 200 Mg PO HS 11/17/16 Reported Spiriva Handihaler (Tiotropium Inh) 18 Mcg Cap 18 Mcg INH DAILY 11/17/16 Reported 1 capsule = 18 mcg Miralax (Polyethylene Glycol 3350) 1 Pow Pow 17 Gm PO DAILY 11/17/16 Reported Proair Respiclick Inh (Albuterol Sulfate) 90 Mcg/Act Aerp 2 Puff INH Q4HR PRN 11/17/16 Reported Sucralfate 1 Gm Tab 1 Gm PO TID 11/17/16 Reported on empty stomach Xarelto (Rivaroxaban) 20 Mg Tab 20 Mg PO DAILY 11/17/16 Reported Tamsulosin (Tamsulosin HCl) 0.4 Mg Cap 0.4 Mg PO HS 11/17/16 Reported Family History Mother had DM, CAD Father had PAD Social History Tobacco: Smokes 1 PPD x has smoked for 54 years Alcohol: Denies Illicit Drugs: Denies (Isabella Burgess) Review of Systems Constitutional: COMPLAINS OF: Fatigue, DENIES: Weight loss, Change in appetite Respiratory: COMPLAINS OF: Cough, Shortness of breath Cardiovascular: COMPLAINS OF: Palpitations Gastrointestinal: COMPLAINS OF: Abdominal pain, Vomiting, Heartburn, DENIES: Constipation, Diarrhea, Nausea, Swelling of Abdomen Musculoskeletal: COMPLAINS OF: Joint pain Hematologic/lymphatic: DENIES: Bruising Immunologic/allergic: DENIES: Eczema Neurologic: DENIES: Headache Psychiatric: DENIES: Confusion (Isabella Burgess) GI Exam Vitals I&O Vital Signs Date Time Temp Pulse Resp B/P Pulse Ox O2 Delivery O2 Flow Rate FiO2 12/15/16 08:00 97.9 63 20 122/58 96 12/15/16 04:00 Nasal Cannula 3.00 12/15/16 04:00 97.5 66 17 123/59 93 12/15/16 00:00 98.1 66 18 116/55 95 12/15/16 00:00 Nasal Cannula 3.00 12/14/16 20:00 98.0 64 17 123/58 95 12/14/16 20:00 Nasal Cannula 3.00 12/14/16 20:00 65 12/14/16 16:00 98.2 63 20 121/58 95 12/14/16 12:00 97.7 71 20 126/59 95 I/O 12/14/16 12/14/16 12/14/16 12/15/16 12/15/16 12/15/16 07:00 15:00 23:00 07:00 15:00 23:00 Intake Total 180 ml 840 ml 340 ml 200 ml Output Total 400 ml Balance -220 ml 840 ml 340 ml 200 ml Intake Oral 180 ml 840 ml 240 ml IV Total 100 ml 200 ml Output Urine Total 400 ml # Voids 3 1 1 # Bowel Movements 1 0 0 Imaging Last Impressions Lower Extremity Ultrasound 12/14/16 0600 Signed Impressions: Service Date/Time: Wednesday, December 14, 2016 08:00 - CONCLUSION: Normal examination. Adriel Ty MD Abdomen X-Ray 12/14/16 0000 Signed Impressions: Service Date/Time: Wednesday, December 14, 2016 16:25 - CONCLUSION: Non-specific bowel gas pattern. Henry Sims MD FACR CT Angiography 12/13/16 0000 Signed Impressions: Service Date/Time: Tuesday, December 13, 2016 18:11 - CONCLUSION: Increasing bibasilar parenchymal changes and pleural effusion. Negative for central pulmonary emboli. Henry Sims MD FACR Chest X-Ray 12/11/16 1852 Signed Impressions: Service Date/Time: November 19:05 - CONCLUSION: New consolidative changes left base. Henry Sims MD FACR Laboratory Test 12/14/16 17:35 Total Bilirubin 0.4 MG/DL Direct Bilirubin 0.2 MG/DL Indirect Bilirubin 0.2 MG/DL Aspartate Amino Transf 9 U/L (AST/SGOT) Alanine Aminotransferase 20 U/L (ALT/SGPT) Alkaline Phosphatase 130 U/L Total Protein 5.3 GM/DL Albumin 2.2 GM/DL Physical Examination HEENT: Normocephalic; atraumatic; no jaundice. CHEST: CTA CARDIAC: RRR ABDOMEN: Soft, mildly bloated, nontender; no hepatosplenomegaly; bowel sounds are present in all four quadrants. EXTREMITIES: Mild BLE edema. SKIN: Normal; no rash; no jaundice. ELECTRIC SWITCH TESTER: No focal deficits; alert and oriented times three. (Isabella Burgess) Assessment and Plan Plan ASSESSMENT: - Epigastric pain, vomiting. Pt is hospitalized for paroxysmal atrial fibrillation, HCAP. He reports that he was having some epigastric pain and associated vomiting if he coughed too hard. He describes his epigastric pain as a sharp pain only with coughing or movement. He does have Gastroparesis and GERD, but states this has been well controlled with Reglan and PPI. He is not currently having any symptoms of this and states he would like to go home today, if he is cleared by GI. 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 PPI. Reglan 10mg po QID, Zofran prn. Much improved. Currently asymptomatic. - Gastroparesis. States he was diagnosed by imaging. Has been on Reglan and Miralax. He also had botox injections for pyloric stenosis. States he has had issues following up in the office and has not been seen since that time. - Paroxysmal atrial fibrillation, Atypical CP. S/P Cardiology evaluation, cardizem, amiodarone, and xarelto. Cardiology has cleared the patient for discharge - HCAP LLL. Cefepime and Clindamycxin per primary. - DM, HTN per primary - Hx Colon Polyps. Colonoscopy (09/25/15) ----> mild antral gastropathy, otherwise normal, sessile polyp 5-9 mm in the cecum, 2 sessile polyps in the ascending colon. Pathology revealed duodenal mucosa without significant pathologic change, villous architecture within normal limits, gastric mucosa with reactive gastroplasty accompanied by regenerative epithelial changes and lamina propria fibrosis, negative for intestinal metaplasia or dysplasia, H. Pylori organisms are not identified by HP immunostain. PLAN: - Cardiac diet - Decrease Reglan to 5mg po TID- would like to eventually wean him off of this, but will continue at decreased dose for now until seen in office. - Cont. PPI - Cont. Zofran prn. - Okay to d/c home. - FU GILBERTO in 3-4 weeks- office will call to schedule appointment as he states that he has had difficulty making his appointment. Appointment give to patient- December 18 2016, Dr. Bratu, 1015 am. - Pt seen and examined by Dr. Miranda and myself and this note is written on his behalf (Isabella Burgess) Physician Comments Seen and examined with Ms. Jenifer LEAL, chest pain only upon coughing. States does not cough that much. On high dose reglan will taper off due to risk for side effects. Gi fu recommended upon dc home. Thank you (Becca Miranda MD) Isabella Burgess Dec 15, 2016 10:07 Becca Miranda MD Dec 15, 2016 14:19
[2016-12-15] MEDS ORDERED: PILL SPLITTER OTHER PRN (10:15)
[2016-12-15 12:00] VITALS: BP 139/65; PULSE 80; RESP 18; TEMP 96.3
--- NOTE | 2016-12-15 13:34 | HHI.FF ---
Face to Face Verification Diagnosis: (1) Neuropathy (2) Chronic pain Physical Therapy Order: Evaluate and Treat Home Health Nursing Order: Diabetic education Nursing assessment with vital signs I have seen patient Curtis Santana on 12/15/16. My clinical findings support the need for the requested home health care services because: Deconditioned w/ increased weakness I certify that my clinical findings support that this patient is homebound because: Unsafe to leave home unassisted Pro Driscoll MD Dec 15, 2016 13:34
[2016-12-15] MEDS ORDERED: CARD240C6 PO (13:39)
[2016-12-15] MEDS ORDERED: SENN1TAB2 PO (13:39)
[2016-12-15] MEDS ORDERED: AMIO5TAB PO (13:39)
[2016-12-15] MEDS ORDERED: LANTUS2P SQ (13:39)
[2016-12-15] MEDS ORDERED: METO10TA PO (13:39)
--- NOTE | 2016-12-15 14:02 | HHI.DS ---
Discharge Summary Admission Date Dec 11, 2016 at 20:30 Discharge Date: Dec 15, 2016 Admitting Diagnosis pneumonia, aflutter with RVR (1) Pneumonia ICD Code: J18.9 Diagnosis: Secondary (2) Atrial flutter with rapid ventricular response ICD Code: I48.92 Diagnosis: Principal (3) Type 2 diabetes mellitus ICD Code: E11.9 Diagnosis: Secondary (4) Hyponatremia ICD Code: E87.1 Diagnosis: Secondary (5) Neuropathy ICD Code: G62.9 Diagnosis: Secondary (6) Atypical chest pain ICD Code: R07.89 Diagnosis: Principal (7) Gastroparesis ICD Code: K31.84 Diagnosis: Secondary Procedures none Brief History - From Admission Mr. Santana is a 76-year-old male with a past medical history of atrial fibrillation on Xarelto s/p ablation x 2, arthritis, COPD, diabetes mellitus, gastroparesis, gastroesophageal reflux disease, and chronic neuropathic pain who presents to the emergency room complaining of worsening shortness of breath , palpitations, and increased lower extremity swelling since a October hospitalization for atrial fibrillation with an ablation by Dr. Viveros. PCP saw patient earlier this week and provided 4 days of digoxin for rapid heart rate and Lasix for lower extremity swelling. BNP normal at 97, troponin 1 is 0.02 which is within normal parameters. Mild hyponatremia noted with sodium of 133. Hyperglycemia with glucose of 411. Chest x-ray with new consolidation noted left lower lobe; minimal pulmonary venous congestion; minimal cardiomegaly. The patient is seen in the CDU. He states he has severe intermittent chest pain started today; worse when lying back -location: central and left chest; Denies fever, diaphoresis or chills. Palpitations with cough and severe shortness of breath accompanied palpitations. He also reports shortness of breath with cough until two days ago - when coughing had phlegm x 1 1/2 weeks - white in color. Symptoms accompanied by severe fatigue. . CBC/BMP: 12/14/16 0319 12/14/16 0319 Significant Findings Laboratory Tests Test 12/13/16 12/14/16 12/14/16 13:09 03:19 17:35 D-Dimer Quantitative (PE/DVT) 0.68 MG/L FEU (0.00-0.50) Hematocrit 38.9 % (39.0-51.0) Neutrophils (%) (Auto) 80.0 % (16.0-70.0) Monocytes (%) (Auto) 9.8 % (0.0-8.0) Lymphocytes # (Auto) 0.6 TH/MM3 (1.0-4.8) Carbon Dioxide Level 36.4 MEQ/L (21.0-32.0) Random Glucose 51 MG/DL (74-106) Calcium Level 8.1 MG/DL (8.5-10.1) C-Reactive Protein 1.04 MG/DL (0.00-0.30) Aspartate Amino Transf 9 U/L (15-37) (AST/SGOT) Alkaline Phosphatase 130 U/L (45-117) Total Protein 5.3 GM/DL (6.4-8.2) Albumin 2.2 GM/DL (3.4-5.0) Imaging Last Impressions Lower Extremity Ultrasound 12/14/16 0600 Signed Impressions: Service Date/Time: Wednesday, December 14, 2016 08:00 - CONCLUSION: Normal examination. Adriel Ty MD Abdomen X-Ray 12/14/16 0000 Signed Impressions: Service Date/Time: Wednesday, December 14, 2016 16:25 - CONCLUSION: Non-specific bowel gas pattern. Henry Sims MD FACR CT Angiography 12/13/16 0000 Signed Impressions: Service Date/Time: Tuesday, December 13, 2016 18:11 - CONCLUSION: Increasing bibasilar parenchymal changes and pleural effusion. Negative for central pulmonary emboli. Henry Sims MD FACR Chest X-Ray 12/11/16 1852 Signed Impressions: Service Date/Time: November 19:05 - CONCLUSION: New consolidative changes left base. Henry Sims MD FACR PE at Discharge GENERAL: Well-nourished, well-developed male patient in [facility]. SKIN: Warm and dry. No rash. HEAD: Normocephalic. Atraumatic. EYES: Pupils equal and round. No scleral icterus. No injection or drainage. ENT: No nasal bleeding or discharge. Mucous membranes pink and moist. NECK: Supple. Trachea midline. CARDIOVASCULAR: Irregularly Irregular rate and rhythm. S1, S2 noted. No murmur appreciated. RESPIRATORY: No accessory muscle use. Clear to auscultation. Breath sounds equal bilaterally. GASTROINTESTINAL: Abdomen soft, non-tender, nondistended. Normoactive bowel sounds x4. MUSCULOSKELETAL: No obvious deformities. 1+ b/l lower extremity pitting edema. NEUROLOGICAL: Awake and alert. No obvious cranial nerve deficits. Motor grossly within normal limits. Normal speech. PSYCHIATRIC: Appropriate mood and affect; insight and judgment normal. Pt update on day of discharge The patient is feeling well today. He continues to have epigastric pain that radiates in into his chest. No nausea or vomiting. He had a bowel movement overnight. He does have some discomfort in his right shoulder blade from lying in bed. He feels ready to go home. Hospital Course 76-year-old male with a PMH of atrial fibrillation s/p ablation x2, on Xarelto, arthritis, COPD, DM, gastroparesis, GERD, and chronic neuropathic pain who presents with worsening SOB, palpitations, and increased lower extremity swelling since October hospitalization for afib with ablation done by Dr. Viveros. PCP saw patient earlier this week and provided 4 days of digoxin for rapid heart rate and Lasix for lower extremity swelling. //Healthcare Associated Pneumonia of LLL (patient hospitalized last month) - left lung base consolidation on CXR, images reviewed by me - -Status post cefepime and azithromycin in the ER. -12/14. Received IV cefepime and clindamycin for aspiration coverage, DC on oral Augmentin. //Atrial flutter with RVR - S/p IV Cardizem 15mg x1 in the ED, heart rate improved - ACS ruled out with negative serial cardiac enzymes and EKG without acute ST changes - EKG showed atrial flutter with RVR - Digoxin subtherapeutic at 0.6 on admission, given IV Digoxin 0.5mg x1 on 12/12 - Cardiology following. Appreciate assistance. Heart rate now controlled on long-acting diltiazem and amiodarone, doses adjusted. //Chest Pain, pleuritic -Likely secondary to pneumonia as above. - ACS ruled out as above -12/13. CT pulmonary angiogram with pleural effusion. Does not appear to be large enough to tap. Likely secondary to atrial fibrillation. We'll need to follow up with repeat imaging as outpatient, imaging and follow-up discussed with the patient. //Uncontrolled Type 2 diabetes mellitus with hyperglycemia on admission - Blood glucose 411 on admission, HgbA1c 8.5 on 09/23/16 - Accu-Cheks and cover with medium-dose NovoLog sliding scale coverage - Hypoglycemia protocol -12/14.Hypoglycemia. Likely secondary to diabetic diet here. We will decrease long-acting insulin -12/15 glucose much better controlled with decreased baseline insulin dose. //Gastroparesis exacerbation suspected. Consulted gastroenterology. Reglan decreased. He eats small frequent meals. Continue PPI. Outpatient GI follow- up. //Chronic Neuropathic Pain - continue home Fentanyl and Morphine //Lower Extremity Edema - unclear etiology, last Echo 09/23/16 with EF 55-60%. BNP is normal. Likely secondary to atrial fibrillation. - elevate legs - continue patient's Lasix 20mg bid Pt Condition on Discharge: Stable Discharge Disposition: Disch w/ Home Health Serv Discharge Time: > 30 minutes Discharge Instructions DIET: Follow Instructions for: Heart Healthy Diet, Diabetic Diet Additional Diet Instructions: Eat small frequent meals with gastroparesis Activities you can perform: Regular-No Restrictions Follow up Referrals: Cardiology - 1 Week with Benji Cisse MD Gastroenterology - 12/18/16 with Princess Robert MD PCP Follow-up - 1 Week New Medications: Amoxicillin-Clavulanate (Augmentin) 875-125 mg Tab 875 MG PO BID not for use in CrCl <30 ml/min. Infection #14 Ref 0 TAB Sennosides-Docusate Sodium (Senna-Docusate Sodium) 8.6-50 Mg Tab 1 TAB PO DAILY Constipation Days 30 Ref 0 TAB Diltiazem CD 24 HR (Cardizem CD 24 HR) 240 Mg Caper 240 MG PO DAILY heart Days 30 CAP Metoclopramide (Metoclopramide) 10 Mg Tab 5 MG PO TID Gastroparesis Days 30 TAB Changed Medications: Amiodarone (Amiodarone) 200 Mg Tab 200 MG PO BID atrial fibrillation #60 TAB (Changed from: HS) Insulin Glargine Inj (Lantus Inj) 100 Unit/Ml Inj 9 UNITS SQ Q12HR glucose control Days 30 VIAL (Changed from: 12 UNITS) Continued Medications: Albuterol Powder Inh (Proair Respiclick Inh) 90 Mcg/Act Aerp 2 PUFF INH Q4HR PRN SHORTNESS OF BREATH #1 Ref 0 INHALER Atorvastatin (Atorvastatin) 40 Mg Tab 40 MG PO HS Cholesterol Management #30 Ref 0 TAB Fentanyl Patch 72 HR (Fentanyl Patch 72 HR) 100 Mcg/Hr Patch 100 MCG T-DERMAL EVERY 2 DAYS Remove old patch when new one placed. Pain Management #10 Ref 0 PATCH Furosemide (Furosemide) 20 Mg Tab 20 MG PO BID #60 Ref 0 TAB Insulin Aspart Inj (Novolog Flexpen Inj) 300 Unit/3 Ml Pen 5-15 UNITS SQ ACHS PER SLIDING SCALE: 0-150-5 UNITS, 151-200=7 UNITS, 201-250 =9 UNITS, 251-300=11 UNITS, 301-350=13 UNITS, 351-400=15 UNITS, 401 & UP=CALL MD Blood Sugar Management #1 Ref 0 PEN Levothyroxine (Levothyroxine) 200 Mcg Tab 200 MCG PO DAILY Thyroid #30 Ref 0 TAB Morphine IR (Morphine IR) 30 Mg Tab 60 MG PO BID PRN BREAKTHROUGH PAIN Ref 0 TAB Ondansetron (Ondansetron) 8 Mg Tab 8 MG PO Q8HR PRN NAUSEA OR VOMITING Ref 0 TAB Pantoprazole (Protonix) 40 Mg Tab 40 MG PO DAILY Reflux #30 Ref 0 TAB Polyethylene Glycol 3350 (Miralax) 1 Pow Pow 17 GM PO DAILY Ranitidine (Zantac) 150 Mg Tab 150 MG PO BID Reduce Stomach Acid #60 Ref 0 TAB Rivaroxaban (Xarelto) 20 Mg Tab 20 MG PO DAILY Blood Clot Prevention Ref 0 TAB Sucralfate (Sucralfate) 1 Gm Tab 1 GM PO TID on empty stomach Duodenal ulcer #90 Ref 0 TAB Tamsulosin (Tamsulosin) 0.4 Mg Cap 0.4 MG PO HS Manage Prostate Problems #30 Ref 0 CAP Tiotropium Inh (Spiriva Handihaler) 18 Mcg Cap 18 MCG INH DAILY 1 capsule = 18 mcg COPD #30 Ref 0 CAP Trazodone (Trazodone) 100 Mg Tab 200 MG PO HS Control Depression #30 Ref 0 TAB Discontinued Medications: Metoclopramide (Metoclopramide) 10 Mg Tab 10 MG PO QID Ref 0 TAB Additional Information Written by Magdy Albert, acting as scribe for Dr. Driscoll on 1/16/17 at 14:01. The documentation accurately reflects the work performed [id number] by me, Dr. Driscoll on 12/15/16 at 14:01. Magdy Albert Dec 15, 2016 14:02 Pro Driscoll MD Dec 23, 2016 01:02
[2016-12-15] MEDS ORDERED: AUGM875T PO (14:26)
[2016-12-15] MEDS ORDERED: GETGO ROLLING W1 MI1 (14:45)
[2016-12-15 16:00] VITALS: BP 138/66; PULSE 61; RESP 14; TEMP 96.2; O2SAT 95
[2016-12-15 16:50] LABS: HEMOGLOBIN A1a 1.7 %; HEMOGLOBIN A1b 2.3 %; HEMOGLOBIN Ao 79.5 %; HEMOGLOBIN LA1C 2.7 %; HEMOGLOBIN P3 4.4 %
[2017-01-10] MEDS ORDERED: PROT40TA PO (08:28)
[2017-01-10] MEDS ORDERED: ATOR40TA16 PO (08:28)
[2017-01-10] MEDS ORDERED: BACI500O9 TOPICAL (08:28)
[2017-01-10] MEDS ORDERED: DIGO0.25 PO (08:28)
[2017-01-10] MEDS ORDERED: CARD240C6 PO (08:28)
[2017-01-10] MEDS ORDERED: AMIO5TAB PO (08:28)
[2017-01-10] MEDS ORDERED: ZANT150T2 PO (08:28)
[2017-01-10] MEDS ORDERED: SPIRCAP INH (08:28)
[2017-01-10] MEDS ORDERED: XARE20TA PO (08:28)
[2017-01-10] MEDS ORDERED: SUCR1TAB PO (08:28)
[2017-01-10] MEDS ORDERED: LEVO.1 PO (08:28)
== END 2016-12-15 18:20 | disposition home health service (06) | DRG 308 ==
LOC: NEPC 18:25 → NEDA 20:30 → NEPGCP 21:50 → N04B 12-12 17:54
PROVIDERS: ADMIT Internal Medicine; ATTEND Internal Medicine
DX: I48.92 Unspecified atrial flutter (principal); J18.9 Pneumonia, unspecified organism; J44.0 Chronic obstructive pulmonary disease with (acute) lower respiratory infection; E87.1 Hypo-osmolality and hyponatremia; E11.65 Type 2 diabetes mellitus with hyperglycemia; E11.649 Type 2 diabetes mellitus with hypoglycemia without coma; K31.84 Gastroparesis; K76.0 Fatty (change of) liver, not elsewhere classified; G62.9 Polyneuropathy, unspecified; K21.9 Gastro-esophageal reflux disease without esophagitis; G89.29 Other chronic pain; I10 Essential (primary) hypertension; M19.90 Unspecified osteoarthritis, unspecified site; F17.210 Nicotine dependence, cigarettes, uncomplicated; E78.5 Hyperlipidemia, unspecified; E03.9 Hypothyroidism, unspecified; I48.0 Paroxysmal atrial fibrillation; I47.1 Supraventricular tachycardia; I70.0 Atherosclerosis of aorta; Y95 Nosocomial condition; Z79.01 Long term (current) use of anticoagulants; Z79.4 Long term (current) use of insulin; Z86.010 Personal history of colon polyps; Z88.1 Allergy status to other antibiotic agents; Z91.040 Latex allergy status
CPT/HCPCS: 71010; 71275; 74000; 76937; 80048; 80053; 80076; 80162; 81001; 82550; 82948; 83036; 83735; 83880; 84443; 84484; 85025; 85379; 85652; 86140; 93005; 93308; 93970; 96372; 96374; 96375; J0282; J0692; J1160; J1815; J1940; J2270; J2405; J7060; Q9967

== ENCOUNTER 2016-12-22 22:45 | Emergency (ER) | payer OTHER ==
[~2016-12-22] VITALS: Ht 177.8 cm; Wt 90.0 kg
[~2016-12-22 22:45] MED LIST changes: -ASPI81TA11 PO; +AUGM875T PO; +CARD240C6 PO; +FURO20TA PO; +GETGO ROLLING W1 MI1; -PRED10PA PO; +SENN1TAB2 PO
[2016-12-22 22:51] VITALS: BP 145/79; PULSE 130; RESP 18; TEMP 98.4; O2SAT 100
[2016-12-22] MEDS ORDERED: PROPOFOL 1000 MG/100 ML INJ 100 ML ONE (22:53)
[2016-12-22] MEDS ORDERED: ETOMIDATE 20 MG/10 ML VIAL IV PUSH ONE (23:00)
[2016-12-22] MEDS ORDERED: SODIUM CHLOR 0.9% 1000 ML INJ 1,000 ML IV ONE (23:00)
[2016-12-22] MEDS ORDERED: ROCURONIUM INJ 50 MG/5 ML VIAL IV ONE (23:00)
[2016-12-22] MEDS ORDERED: SODIUM CHLORIDE 0.9% FLUSH 5 ML FLUSH IVF PRN (23:00)
[2016-12-22] MEDS ORDERED: fentaNYL DRIP 250 ML ONE (23:01)
[2016-12-22 23:07] VITALS: O2SAT 100
[2016-12-22] MEDS ORDERED: SILVER SULFADIAZINE 1% CR 50 GM JAR TOPICAL ONE (23:15)
[2016-12-22 23:30] VITALS: BP 156/86; PULSE 132; RESP 16; O2SAT 99
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
[2016-12-23] MEDS ORDERED: DILTIAZEM HCL 25 MG/5 ML VIAL IV ONE
[2016-12-23] MEDS ORDERED: ETOMIDATE 20 MG/10 ML VIAL ONE (00:07)
[2016-12-23] MEDS ORDERED: ROCURONIUM INJ 50 MG/5 ML VIAL ONE (00:07)
[2016-12-23 00:13] LABS: AUTOMATED NEUTROPHIL # 5.9 TH/MM3 (1.8-7.7); BASOPHIL # 0.1 TH/MM3 (0-0.2); BASOPHIL % 1.1 % (0.0-2.0); HEMATOCRIT 39.9 % (39.0-51.0); HEMO FLAGS DIFF FINAL; LYMPH % 11.3 % (9.0-44.0); LYMPHOCYTE # 0.9 TH/MM3 (1.0-4.8); MEAN CELL VOLUME 85.2 FL (80.0-100.0); MEAN CORPUSCULAR HEMOGLOBIN 28.6 PG (27.0-34.0); MEAN CORPUSCULAR HGB CONC 33.6 % (32.0-36.0); MONO % 10.8 % (0.0-8.0); NEUT % 76.8 % (16.0-70.0); PLATELET COUNT 252 TH/MM3 (150-450); RED BLOOD COUNT 4.69 MIL/MM3 (4.50-5.90); RED CELL DISTRIBUTION WIDTH 18.4 % (11.6-17.2); WHITE BLOOD COUNT 7.6 TH/MM3 (4.0-11.0)
[2016-12-23 00:21] LABS: APTT (PATIENT) 28.2 SEC (24.3-30.1); INTERNATIONAL NORMALIZED RATIO 1.1 RATIO; PROTHROMBIN TIME - PATIENT 12.1 SEC (9.8-11.6)
[2016-12-23] MEDS ORDERED: SODIUM CHLOR 0.9% 1000 ML INJ 1,000 ML IV ONE (00:30)
[2016-12-23 00:32] LABS: BICARBONATE 38.3 MEQ/L (21.0-32.0); MAGNESIUM 1.9 MG/DL (1.5-2.5); POTASSIUM 3.6 MEQ/L (3.5-5.1)
[2016-12-23] MEDS: fentaNYL DRIP 250 ML IV SCH ×2 (00:41→00:43)
[2016-12-23 00:45] VITALS: O2SAT 100
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
[2016-12-23 01:04] LABS: BLOOD GAS BASE EXCESS 9.9 mmol/L (-2-2); BLOOD GAS CARBOXYHEMOGLOBIN 4.1 % (0-4); BLOOD GAS HCO3 34 mmol/L (22-26); BLOOD GAS METHEMOGLOBIN 3.2 % (0-2); BLOOD GAS O2 HGB SATURATION 91 % (90-100); BLOOD GAS OXYGEN CONTENT 17.7 Vol % (12.0-20.0); BLOOD GAS PCO2 49 mmHg (38-42); BLOOD GAS PO2 317 mmHG (61-120); BLOOD GAS TOTAL HGB 13.2 G/DL (12.0-16.0); TEMP CORR TO 98.6
[2016-12-23 01:05] LABS: CRITICAL VALUE YES
[2016-12-23 01:06] LABS: DRAW SITE RT RADIAL; FIO2 100 %; NUMBER OF ARTERIAL PUNCTURES 1; OXYGEN DEVICE VENTILATOR; STAT YES; ULNAR PULSE PRESENT; VENT SETTINGS PRVC/AC
[2016-12-23 01:34] VITALS: PULSE 95; RESP 16; O2SAT 100
[2016-12-23 02:30] VITALS: BP 122/81; PULSE 100; RESP 16; O2SAT 100
[2016-12-23] MEDS ORDERED: PROPOFOL 1000 MG/100 ML INJ 100 ML ONE (02:36)
[2016-12-23 02:39] VITALS: O2SAT 100
--- NOTE | 2016-12-23 17:06 | EKG ---
Date Performed: 12/22/2016 Time Performed: 23:36:33 PTAGE: 76 years EKG: Regular supraventricular tachycardia, atrial flutter with rVr is not excluded LOW QRS VOLTA GE IN EXTREMITY LEADS ABNORMAL QRS-T ANGLE Nonspecific ST-T wave changes. When compared to previous t racing, the patient is tachycardic And possiblein atrial flutter. Clinical correlation is suggested. ABNORMAL ECG PREVIOUS TRACING : 12/13/2016 21.32 DOCTOR: Dawna Andrade Interpretating Date/Time 12/23/2016 17:05:42
[2017-01-10] MEDS ORDERED: XARE20TA PO (08:28)
[2017-01-10] MEDS ORDERED: BACI500O9 TOPICAL (08:28)
[2017-01-10] MEDS ORDERED: DIGO0.25 PO (08:28)
[2017-01-10] MEDS ORDERED: ZANT150T2 PO (08:28)
[2017-01-10] MEDS ORDERED: AMIO5TAB PO (08:28)
[2017-01-10] MEDS ORDERED: ATOR40TA16 PO (08:28)
[2017-01-10] MEDS ORDERED: SPIRCAP INH (08:28)
[2017-01-10] MEDS ORDERED: LEVO.1 PO (08:28)
[2017-01-10] MEDS ORDERED: SUCR1TAB PO (08:28)
[2017-01-10] MEDS ORDERED: CARD240C6 PO (08:28)
[2017-01-10] MEDS ORDERED: PROT40TA PO (08:28)
== END 2016-12-23 03:49 | disposition short-term general hospital (02) ==
LOC: NEPE 22:45
DX: T20.02XA Burn of unspecified degree of lip(s), initial encounter (principal); T20.04XA Burn of unspecified degree of nose (septum), initial encounter; J44.9 Chronic obstructive pulmonary disease, unspecified; I48.91 Unspecified atrial fibrillation; E11.9 Type 2 diabetes mellitus without complications; I10 Essential (primary) hypertension; E07.9 Disorder of thyroid, unspecified; K21.9 Gastro-esophageal reflux disease without esophagitis; Z99.81 Dependence on supplemental oxygen; Z72.0 Tobacco use; Z79.01 Long term (current) use of anticoagulants; I47.1 Supraventricular tachycardia; X08.8XXA Exposure to other specified smoke, fire and flames, initial encounter; Y92.009 Unspecified place in unspecified non-institutional (private) residence as the place of occurrence of the external cause; Y99.8 Other external cause status
CPT/HCPCS: 16025; 31500; 36600; 51702; 71010; 80048; 82805; 83735; 85025; 85610; 85730; 93005; 96365; 96375; 96376; 99291; J3010; J7030

== ENCOUNTER 2017-01-02 20:29 | Inpatient (IN) | payer OTHER, MEDICARE ==
[~2017-01-02] VITALS: Ht 177.8 cm; Wt 92.8 kg
[2017-01-02 20:00] VITALS: BP 125/70; PULSE 125; RESP 20; TEMP 96.7; O2SAT 95
[2017-01-02] MEDS ORDERED: NALOXONE HCL 0.4 MG/ML AMP IV PRN (21:30)
[2017-01-02] MEDS ORDERED: ONDANSETRON HCL 4 MG/2 ML VIAL IVP PRN (21:30)
[2017-01-02] MEDS ORDERED: SODIUM CHLORIDE 0.9% FLUSH 5 ML FLUSH FLUSH PRN (21:30)
[2017-01-02] MEDS ORDERED: ACETAMINOPHEN 325 MG TAB PO PRN (21:30)
[2017-01-02] MEDS ORDERED: MAGNESIUM HYDROXIDE SUSP 30 ML CUP PO PRN (21:30)
[2017-01-02] MEDS ORDERED: BISACODYL 10 MG SUPP PR PRN (21:30)
[2017-01-02 21:49] LABS: BLOOD GAS BASE EXCESS 9.2 mmol/L (-2-2); BLOOD GAS CARBOXYHEMOGLOBIN 1.9 % (0-4); BLOOD GAS HCO3 33 mmol/L (22-26); BLOOD GAS METHEMOGLOBIN 1.5 % (0-2); BLOOD GAS O2 HGB SATURATION 90 % (90-100); BLOOD GAS PCO2 45 mmHg (38-42); BLOOD GAS PO2 70 mmHg (61-120); BLOOD GAS TOTAL HGB 12.6 G/DL (12.0-16.0); CRITICAL VALUE NO; DRAW SITE LT RADIAL; FIO2 98 %; LITER FLOW 8 L/M; NUMBER OF ARTERIAL PUNCTURES 1; OXYGEN DEVICE MASK; STAT YES; TEMP CORR TO 98.6; ULNAR PULSE PRESENT
[2017-01-02 21:50] VITALS: O2SAT 98
[2017-01-02 22:00] VITALS: PULSE 126
[2017-01-02] MEDS ORDERED: OXYC-395 PO (22:11)
[2017-01-02] MEDS ORDERED: terazosin PO (22:11)
[2017-01-02] MEDS ORDERED: LORA-392 PO (22:11)
[2017-01-02] MEDS ORDERED: N7030SS SQ (22:11)
[2017-01-02] MEDS ORDERED: GUAISOL PO (22:11)
[2017-01-02] MEDS ORDERED: CARD120T4 PO (22:11)
[2017-01-02] MEDS ORDERED: SODIUM CHLORIDE 3% (22:11)
[2017-01-02] MEDS ORDERED: AFRI0.055 (22:11)
[2017-01-02] MEDS ORDERED: MULT1TAB84 PO (22:11)
[2017-01-02] MEDS ORDERED: DOCU100C PO (22:11)
[2017-01-02] MEDS ORDERED: SENN8.8S7 PO (22:11)
[2017-01-02] MEDS ORDERED: BACI500O9 TOPICAL (22:11)
[2017-01-02] MEDS ORDERED: TERAZOSIN (22:11)
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
[2017-01-02] MEDS: LORazepam 0.5 MG TAB PO PRN (22:46)
[2017-01-02 23:11] LABS: AUTOMATED NEUTROPHIL # 6.8 TH/MM3 (1.8-7.7); BASOPHIL # 0.1 TH/MM3 (0-0.2); BASOPHIL % 1.4 % (0.0-2.0); EOSINOPHIL % 0.1 % (0.0-4.0); HEMATOCRIT 34.7 % (39.0-51.0); HEMO FLAGS DIFF FINAL; LYMPH % 10.3 % (9.0-44.0); LYMPHOCYTE # 0.9 TH/MM3 (1.0-4.8); MEAN CELL VOLUME 85.6 FL (80.0-100.0); MEAN CORPUSCULAR HEMOGLOBIN 28.6 PG (27.0-34.0); MEAN CORPUSCULAR HGB CONC 33.4 % (32.0-36.0); NEUT % 78.2 % (16.0-70.0); PLATELET COUNT 278 TH/MM3 (150-450); RED BLOOD COUNT 4.05 MIL/MM3 (4.50-5.90); RED CELL DISTRIBUTION WIDTH 18.2 % (11.6-17.2); WHITE BLOOD COUNT 8.7 TH/MM3 (4.0-11.0)
[2017-01-02] MEDS ORDERED: SODIUM CHLORIDE 0.65% NASAL SPRAY 45 ML BTL EACH NARE PRN (23:15)
[2017-01-02] MEDS ORDERED: DEXTROSE 50% IN WATER 50 ML VIAL(D50) IV PUSH PRN (23:30)
[2017-01-02] MEDS ORDERED: ALBUTEROL SULFATE 90 MCG/ACT HFA 8 GM INHALER INH PRN (23:30)
[2017-01-02] MEDS ORDERED: GLUCAGON 1 MG/ML VIAL OTHER PRN (23:30)
[2017-01-02 23:39] LABS: ANION GAP 4 MEQ/L (5-15); AST (GOT) 10 U/L (15-37); BICARBONATE 37.6 MEQ/L (21.0-32.0); BLOOD UREA NITROGEN 20 MG/DL (7-18); CHLORIDE 96 MEQ/L (98-107); GLOMERULAR FILTRATION RATE 94 ML/MIN (>89); POTASSIUM 3.7 MEQ/L (3.5-5.1); SODIUM (NA) 138 MEQ/L (136-145)
[2017-01-02 23:43] LABS: ALKALINE PHOSPHATASE 98 U/L (45-117); ALT (GPT) 17 U/L (12-78); TOTAL BILIRUBIN ADULT 0.5 MG/DL (0.2-1.0)
[2017-01-03] VITALS (10 sets, daily range): BP systolic 97–148; BP diastolic 62–85; PULSE 95–123; RESP 16–20; TEMP 96.3–98.8; O2SAT 92–100
[2017-01-03] MEDS: BACITRACIN OPHT OINT 3.5 GM TUBO EACH EYE SCH ×4 (00:18→18:00)
[2017-01-03] MEDS: DILTIAZEM HCL 60 MG TAB PO SCH ×4 (00:18→18:27)
[2017-01-03] MEDS: BACITRACIN TOP OINT 15 GM TUBE TOP SCH ×4 (00:24→18:26)
[2017-01-03] MEDS: LEVOTHYROXINE SODIUM 100 MCG TAB PO SCH (06:26)
[2017-01-03] MEDS: LEVOTHYROXINE SODIUM 125 MCG TAB PO SCH (06:26)
[2017-01-03] MEDS ORDERED: INSULIN HUMAN NPH/R 70/30 1,000 UNITS/10 ML VIAL SQ SCH (08:00)
--- NOTE | 2017-01-03 08:32 | RADRPT ---
EXAM DATE/TIME: 01/03/2017 08:04 [place] COMPARISON: CHEST SINGLE AP, December 22, 2016, 23:16. INDICATIONS : Shortness of breath. MEDICAL HISTORY : Hypertension. Hiatal hernia. Chronic obstructive pulmonary disease. SURGICAL HISTORY : None. ENCOUNTER: Initial ACUITY: 1 day PAIN SCORE: 0/10 LOCATION: Bilateral chest FINDINGS: A single view of the chest demonstrates bilateral airspace disease. Nasogastric tube with tip in stom ach. Small left pleural effusion. Heart normal in size. Osseous structures are intact. CONCLUSION: Bilateral airspace disease. Small left pleural effusion. Mateo Thomas MD on January 03, 2017 at 8:26 Board Certified Radiologist. This report was verified electronically.
[2017-01-03 08:43] LABS: AUTOMATED NEUTROPHIL # 7.4 TH/MM3 (1.8-7.7); BASOPHIL # 0.1 TH/MM3 (0-0.2); BASOPHIL % 1.1 % (0.0-2.0); HEMATOCRIT 35.4 % (39.0-51.0); HEMO FLAGS DIFF FINAL; LYMPH % 8.9 % (9.0-44.0); LYMPHOCYTE # 0.8 TH/MM3 (1.0-4.8); MEAN CELL VOLUME 86.5 FL (80.0-100.0); MEAN CORPUSCULAR HEMOGLOBIN 29.1 PG (27.0-34.0); MEAN CORPUSCULAR HGB CONC 33.7 % (32.0-36.0); MONO % 8.8 % (0.0-8.0); NEUT % 81.2 % (16.0-70.0); PLATELET COUNT 283 TH/MM3 (150-450); RED BLOOD COUNT 4.09 MIL/MM3 (4.50-5.90); RED CELL DISTRIBUTION WIDTH 18.1 % (11.6-17.2); WHITE BLOOD COUNT 9.1 TH/MM3 (4.0-11.0)
[2017-01-03 09:16] LABS: BICARBONATE 33.4 MEQ/L (21.0-32.0); POTASSIUM 4.3 MEQ/L (3.5-5.1)
[2017-01-03] MEDS: MORPHINE SULFATE 4 MG/ML INJ IV PUSH PRN (09:24)
[2017-01-03] MEDS: PANTOPRAZOLE SOD 40 MG DELAYED RELEASE TAB PO SCH (10:00)
[2017-01-03] MEDS: INSULIN HUMAN NPH/R 70/30 1,000 UNITS/10 ML VIAL SQ SCH ×2 (10:00→17:00)
[2017-01-03] MEDS: SENNOSIDES 8.6 MG TAB PO SCH (10:00)
[2017-01-03] MEDS: AMIODARONE 200 MG TAB PO SCH ×2 (10:12→21:31)
[2017-01-03] MEDS: MULTIVITAMINS/MINERALS THERAPEUTIC TAB PO SCH (10:12)
[2017-01-03] MEDS: FAMOTIDINE 20 MG TAB PO SCH ×3 (10:13→21:32)
[2017-01-03] MEDS: DOCUSATE SODIUM 100 MG CAP PO SCH ×2 (10:13→21:40)
[2017-01-03] MEDS: TIOTROPIUM BROMIDE 18 MCG INH INH SCH (10:14)
[2017-01-03] MEDS: SODIUM CHLORIDE 0.9% FLUSH 5 ML FLUSH FLUSH SCH ×2 (10:14→21:40)
[2017-01-03] MEDS: RIVAROXABAN 20 MG TAB PO SCH (10:18)
[2017-01-03] MEDS: SUCRALFATE 1 GM TAB PO SCH ×3 (10:18→18:26)
[2017-01-03] MEDS ORDERED: TERA5CAP3 PO (10:29)
[2017-01-03] MEDS: INSULIN ASPART SUPPLEMENTAL SCALE SQ SCH ×3 (11:00→21:39)
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
[2017-01-03] MEDS ORDERED: Vancomycin Consult Pharmacy 1 EA OTHER SCH (12:00)
[2017-01-03] MEDS ORDERED: VANCOMYCIN INJ 1,250 MG in SODIUM CHLOR 0.9% 250 ML INJ 250 ML IV SCH (12:00)
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
[2017-01-03] MEDS: METOCLOPRAMIDE HCL 10 MG TAB PO SCH ×2 (13:05→18:27)
[2017-01-03] MEDS ORDERED: VANCOMYCIN 1,500 MG/NS 500 ML IV ONE ×2 (14:00)
[2017-01-03] MEDS: PIPERACIL-TAZO 4.5 GM PREMIX 100 ML IV SCH ×2 (14:22→18:30)
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
[2017-01-03] MEDS: LORazepam 0.5 MG TAB PO PRN ×2 (19:00→21:33)
[2017-01-03] MEDS: ATORVASTATIN 40 MG TAB PO SCH (21:32)
[2017-01-03] MEDS: traZODone HCL 100 MG TAB PO SCH (21:32)
[2017-01-04] VITALS (9 sets, daily range): BP systolic 102–125; BP diastolic 64–78; PULSE 99–122; RESP 18; TEMP 95.8–97.5; O2SAT 92–97
[2017-01-04] MEDS: PIPERACIL-TAZO 4.5 GM PREMIX 100 ML IV SCH ×4 (01:24→20:48)
[2017-01-04] MEDS: LORazepam 0.5 MG TAB PO PRN ×3 (05:28→22:15)
[2017-01-04] MEDS: LEVOTHYROXINE SODIUM 125 MCG TAB PO SCH (05:28)
[2017-01-04] MEDS: VANCOMYCIN INJ 1,750 MG in SODIUM CHLORID 0.9% 500 ML INJ 500 ML IV SCH (05:28)
[2017-01-04] MEDS: LEVOTHYROXINE SODIUM 100 MCG TAB PO SCH (05:28)
[2017-01-04] MEDS: BACITRACIN TOP OINT 15 GM TUBE TOP SCH ×4 (05:29→18:00)
[2017-01-04] MEDS: BACITRACIN OPHT OINT 3.5 GM TUBO EACH EYE SCH ×4 (05:29→18:00)
[2017-01-04] MEDS: INSULIN ASPART SUPPLEMENTAL SCALE SQ SCH ×4 (06:03→20:47)
[2017-01-04] MEDS: DILTIAZEM HCL 60 MG TAB PO SCH ×4 (06:03→19:07)
[2017-01-04] MEDS: INSULIN HUMAN NPH/R 70/30 1,000 UNITS/10 ML VIAL SQ SCH ×2 (07:39→17:00)
[2017-01-04] MEDS: SUCRALFATE 1 GM TAB PO SCH ×3 (07:40→19:07)
[2017-01-04] MEDS: SODIUM CHLORIDE 0.9% FLUSH 5 ML FLUSH FLUSH SCH ×2 (09:11→20:47)
[2017-01-04] MEDS: TIOTROPIUM BROMIDE 18 MCG INH INH SCH (09:11)
[2017-01-04] MEDS: DOCUSATE SODIUM 100 MG CAP PO SCH ×2 (09:12→20:48)
[2017-01-04] MEDS: FAMOTIDINE 20 MG TAB PO SCH (09:12)
[2017-01-04] MEDS: MULTIVITAMINS/MINERALS THERAPEUTIC TAB PO SCH (09:12)
[2017-01-04] MEDS: AMIODARONE 200 MG TAB PO SCH ×2 (09:12→20:46)
[2017-01-04] MEDS: RIVAROXABAN 20 MG TAB PO SCH (09:13)
[2017-01-04] MEDS: SENNOSIDES 8.6 MG TAB PO SCH (09:14)
[2017-01-04] MEDS: METOCLOPRAMIDE HCL 10 MG TAB PO SCH ×3 (09:14→19:07)
[2017-01-04] MEDS: PANTOPRAZOLE SOD 40 MG DELAYED RELEASE TAB PO SCH (09:14)
[2017-01-04 09:50] LABS: HEMATOCRIT 34.6 % (39.0-51.0); MEAN CELL VOLUME 85.9 FL (80.0-100.0); MEAN CORPUSCULAR HEMOGLOBIN 28.5 PG (27.0-34.0); MEAN CORPUSCULAR HGB CONC 33.1 % (32.0-36.0); PLATELET COUNT 277 TH/MM3 (150-450); RED BLOOD COUNT 4.03 MIL/MM3 (4.50-5.90); RED CELL DISTRIBUTION WIDTH 17.4 % (11.6-17.2); REVIEW FLAG FINAL; WHITE BLOOD COUNT 8.8 TH/MM3 (4.0-11.0)
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
[2017-01-04 10:59] LABS: BICARBONATE 32.7 MEQ/L (21.0-32.0); MAGNESIUM 2.1 MG/DL (1.5-2.5)
--- NOTE | 2017-01-04 13:10 | EKG ---
Date Performed: 01/03/2017 Time Performed: 13:54:03 PTAGE: 76 years EKG: ATRIAL FLUTTER/TACHYCARDIA WITH RAPID VENTRICULAR RESPONSE LOW QRS VOLTAGE IN EXTREMITY DANYELLE DS NONSPECIFIC T-WAVE ABNORMALITY Since previous tracing, no significant change noted ABNORMAL ECG PREVIOUS TRACING : 12/22/2016 23.36 DOCTOR: Jad Foster Interpretating Date/Time 01/04/2017 13:08:35
--- NOTE | 2017-01-04 16:44 | HHI.PR ---
Subjective Remarks 76 YOWM with COPD, Facial monroy, AF,DM " I had a breakdown last night" Better now Mild sob Occ cough No Fever Objective Vital Signs Vital Signs Date Time Temp Pulse Resp B/P Pulse Ox O2 Delivery O2 Flow Rate FiO2 01/04/17 16:05 97.0 122 18 125/78 94 01/04/17 15:50 18 01/04/17 12:50 96.4 122 18 122/76 94 01/04/17 08:40 95.9 121 18 114/77 97 01/04/17 08:18 121 01/04/17 04:00 96.2 99 18 103/64 94 01/04/17 00:00 95.8 101 18 105/65 92 01/03/17 21:58 Face Tent 28 01/03/17 21:05 113 01/03/17 20:00 96.6 95 18 97/62 92 01/03/17 17:59 100 Face Tent 28 01/03/17 16:52 96.3 121 16 115/75 94 I/O 01/03/17 01/03/17 01/03/17 01/04/17 01/04/17 01/04/17 07:00 15:00 23:00 07:00 15:00 23:00 Intake Total 120 ml 120 ml 240 ml Output Total 400 ml 400 ml 200 ml 500 ml 750 ml Balance -400 ml -400 ml -80 ml -380 ml -510 ml Intake Oral 120 ml 120 ml 240 ml Output Urine Total 400 ml 400 ml 200 ml 500 ml 750 ml # Bowel Movements 1 0 0 Result Diagram: 01/04/1715 01/04/1715 Objective Remarks GENERALWBWN Wm mild sob: SKIN: Warm and dry. HEAD: Normocephalic. Healing facial monroy EYES: No scleral icterus. No injection or drainage. NECK: Supple, trachea midline. No JVD or lymphadenopathy. CARDIOVASCULAR: Regular rate and rhythm without murmurs, gallops, or rubs. RESPIRATORY: Breath sounds equal bilaterally. No accessory muscle use. GASTROINTESTINAL: Abdomen soft, non-tender, nondistended. MUSCULOSKELETAL: No cyanosis, or edema. BACK: Nontender without obvious deformity. No CVA tenderness. A/P Assessment and Plan COPD DM AF Facial monroy Nicotine use GERD and Gastroparesis PLAN: Aerosol nebs Spiriva daily Abx Vanco and Zosyn Supplement 02 Smoking cessation Bimal Borden MD Jan 04, 2017 16:44
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
[2017-01-04] MEDS: ATORVASTATIN 40 MG TAB PO SCH (20:46)
[2017-01-04] MEDS: traZODone HCL 100 MG TAB PO SCH (20:46)
[2017-01-05] VITALS (7 sets, daily range): BP systolic 114–134; BP diastolic 59–81; PULSE 91–127; RESP 18–20; TEMP 95.8–98.1; O2SAT 92–98
[2017-01-05] MEDS: PIPERACIL-TAZO 4.5 GM PREMIX 100 ML IV SCH ×4 (01:20→18:40)
[2017-01-05] MEDS: BACITRACIN OPHT OINT 3.5 GM TUBO EACH EYE SCH ×4 (05:55→18:45)
[2017-01-05] MEDS: BACITRACIN TOP OINT 15 GM TUBE TOP SCH ×4 (05:55→18:45)
[2017-01-05] MEDS: DILTIAZEM HCL 60 MG TAB PO SCH ×4 (05:58→17:09)
[2017-01-05] MEDS: LEVOTHYROXINE SODIUM 125 MCG TAB PO SCH (05:58)
[2017-01-05] MEDS: LEVOTHYROXINE SODIUM 100 MCG TAB PO SCH (05:58)
[2017-01-05] MEDS: VANCOMYCIN INJ 1,750 MG in SODIUM CHLORID 0.9% 500 ML INJ 500 ML IV SCH (05:59)
[2017-01-05] MEDS: INSULIN ASPART SUPPLEMENTAL SCALE SQ SCH ×4 (06:01→21:00)
[2017-01-05] MEDS: PANTOPRAZOLE SOD 40 MG DELAYED RELEASE TAB PO SCH (08:38)
[2017-01-05] MEDS: INSULIN HUMAN NPH/R 70/30 1,000 UNITS/10 ML VIAL SQ SCH ×2 (08:39→17:08)
[2017-01-05] MEDS: SENNOSIDES 8.6 MG TAB PO SCH (08:39)
[2017-01-05] MEDS: DOCUSATE SODIUM 100 MG CAP PO SCH ×2 (08:40→21:00)
[2017-01-05] MEDS: MULTIVITAMINS/MINERALS THERAPEUTIC TAB PO SCH (08:40)
[2017-01-05] MEDS: SUCRALFATE 1 GM TAB PO SCH ×3 (08:40→17:08)
[2017-01-05] MEDS: AMIODARONE 200 MG TAB PO SCH ×2 (08:40→21:00)
[2017-01-05] MEDS: RIVAROXABAN 20 MG TAB PO SCH (08:40)
[2017-01-05] MEDS: FAMOTIDINE 20 MG TAB PO SCH ×2 (08:40→22:12)
[2017-01-05] MEDS: METOCLOPRAMIDE HCL 10 MG TAB PO SCH ×3 (08:59→18:00)
[2017-01-05] MEDS: SODIUM CHLORIDE 0.9% FLUSH 5 ML FLUSH FLUSH SCH ×2 (08:59→21:00)
[2017-01-05] MEDS: TIOTROPIUM BROMIDE 18 MCG INH INH SCH ×2 (09:00→11:26)
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
[2017-01-05] MEDS: LORazepam 0.5 MG TAB PO PRN ×2 (16:39→22:11)
[2017-01-05] MEDS: MORPHINE SULFATE 4 MG/ML INJ IV PUSH PRN ×2 (17:08→22:13)
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
[2017-01-05] MEDS: ATORVASTATIN 40 MG TAB PO SCH (22:11)
[2017-01-05] MEDS: traZODone HCL 100 MG TAB PO SCH (22:11)
[2017-01-06] VITALS (8 sets, daily range): BP systolic 113–139; BP diastolic 61–89; PULSE 72–132; RESP 17–22; TEMP 96.2–98.7; O2SAT 93–97
[2017-01-06] MEDS: PIPERACIL-TAZO 4.5 GM PREMIX 100 ML IV SCH ×4 (01:00→18:00)
[2017-01-06] MEDS: MORPHINE SULFATE 4 MG/ML INJ IV PUSH PRN ×3 (04:32→21:00)
[2017-01-06] MEDS: BACITRACIN OPHT OINT 3.5 GM TUBO EACH EYE SCH ×4 (05:23→19:44)
[2017-01-06] MEDS: VANCOMYCIN INJ 1,750 MG in SODIUM CHLORID 0.9% 500 ML INJ 500 ML IV SCH (05:23)
[2017-01-06] MEDS: DILTIAZEM HCL 60 MG TAB PO SCH ×4 (05:39→18:00)
[2017-01-06] MEDS: LEVOTHYROXINE SODIUM 100 MCG TAB PO SCH (05:39)
[2017-01-06] MEDS: LEVOTHYROXINE SODIUM 125 MCG TAB PO SCH (05:39)
[2017-01-06] MEDS: BACITRACIN TOP OINT 15 GM TUBE TOP SCH ×4 (05:40→19:44)
[2017-01-06] MEDS ORDERED: PHARMACY ORDERED LAB XX ONE (05:45)
[2017-01-06] MEDS: INSULIN ASPART SUPPLEMENTAL SCALE SQ SCH ×4 (07:00→21:00)
[2017-01-06] MEDS: AMIODARONE 200 MG TAB PO SCH ×3 (08:17→21:00)
[2017-01-06] MEDS: RIVAROXABAN 20 MG TAB PO SCH (08:17)
[2017-01-06] MEDS: FAMOTIDINE 20 MG TAB PO SCH ×3 (08:17→21:00)
[2017-01-06] MEDS: SENNOSIDES 8.6 MG TAB PO SCH (08:17)
[2017-01-06] MEDS: PANTOPRAZOLE SOD 40 MG DELAYED RELEASE TAB PO SCH (08:17)
[2017-01-06] MEDS: DOCUSATE SODIUM 100 MG CAP PO SCH ×3 (08:17→21:00)
[2017-01-06] MEDS: MULTIVITAMINS/MINERALS THERAPEUTIC TAB PO SCH (08:18)
[2017-01-06] MEDS: TIOTROPIUM BROMIDE 18 MCG INH INH SCH (08:21)
[2017-01-06] MEDS: METOCLOPRAMIDE HCL 10 MG TAB PO SCH ×3 (09:00→18:00)
[2017-01-06] MEDS: SODIUM CHLORIDE 0.9% FLUSH 5 ML FLUSH FLUSH SCH ×2 (09:00→21:00)
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
[2017-01-06] MEDS: SUCRALFATE 1 GM TAB PO SCH ×2 (13:11→18:00)
[2017-01-06] MEDS: LORazepam 0.5 MG TAB PO PRN ×2 (14:56→21:49)
[2017-01-06] MEDS ORDERED: DIGOXIN 0.5 MG/2 ML VIAL IV PUSH ONE (18:45)
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
[2017-01-06] MEDS: DILTIAZEM-CD 240 MG CAP ER PO SCH ×2 (19:48→21:00)
[2017-01-06] MEDS: traZODone HCL 100 MG TAB PO SCH ×2 (19:50→21:00)
[2017-01-06] MEDS: ATORVASTATIN 40 MG TAB PO SCH ×2 (19:50→21:00)
--- NOTE | 2017-01-06 20:17 | HHI.PR ---
Subjective Remarks 76 YOWM with COPD, Facial monroy, AF,DM Mild sob Occ cough No Fever Feels anxious Tolerates PO, on supplemental TF No new complaint. Objective Vital Signs Vital Signs Date Time Temp Pulse Resp B/P Pulse Ox O2 Delivery O2 Flow Rate FiO2 01/06/17 16:06 97.4 126 18 131/80 93 01/06/17 12:55 19 01/06/17 11:17 96.2 131 17 139/89 96 01/06/17 09:16 20 01/06/17 08:21 97.2 72 21 113/61 97 01/06/17 08:21 95 Face Tent 28 01/06/17 04:00 98.7 132 20 116/70 93 01/06/17 00:20 97.5 99 19 114/68 93 01/05/17 22:19 98 Face Tent 6.00 01/05/17 20:32 97.7 104 18 125/59 96 I/O 01/05/17 01/05/17 01/05/17 01/06/17 01/06/17 01/06/17 07:00 15:00 23:00 07:00 15:00 23:00 Intake Total 500 ml 240 ml 360 ml Output Total 500 ml 800 ml 2150 ml Balance -500 ml -300 ml 240 ml -1790 ml Intake Oral 500 ml 240 ml 360 ml Output Urine Total 500 ml 800 ml 2150 ml # Voids 2 # Bowel Movements 1 Result Diagram: 01/04/1715 01/04/17 0915 Objective Remarks GENERALWBWN Wm mild sob: SKIN: Warm and dry. HEAD: Normocephalic. Healing facial monroy EYES: No scleral icterus. No injection or drainage. NECK: Supple, trachea midline. No JVD or lymphadenopathy. CARDIOVASCULAR: Regular rate and rhythm without murmurs, gallops, or rubs. RESPIRATORY: Breath sounds equal bilaterally. No accessory muscle use. GASTROINTESTINAL: Abdomen soft, non-tender, nondistended. MUSCULOSKELETAL: No cyanosis, or edema. BACK: Nontender without obvious deformity. No CVA tenderness. A/P Assessment and Plan COPD DM AF Facial monroy Nicotine use GERD and Gastroparesis PLAN: Aerosol nebs Spiriva daily Supplement 02 Smoking cessation Wean 02 to Bimal Amaya MD Jan 06, 2017 20:17
[2017-01-06] MEDS ORDERED: TAMSULOSIN HCL 0.4 MG CAP PO ONE (22:45)
[2017-01-07] VITALS (7 sets, daily range): BP systolic 106–146; BP diastolic 65–91; PULSE 75–133; RESP 20–22; TEMP 95.4–97.9; O2SAT 93–95
[2017-01-07] MEDS: PIPERACIL-TAZO 4.5 GM PREMIX 100 ML IV SCH ×4 (01:27→18:11)
[2017-01-07] MEDS: MORPHINE SULFATE 4 MG/ML INJ IV PUSH PRN ×5 (01:35→18:10)
[2017-01-07] MEDS: LEVOTHYROXINE SODIUM 100 MCG TAB PO SCH (05:02)
[2017-01-07] MEDS: VANCOMYCIN INJ 2,000 MG in SODIUM CHLORID 0.9% 500 ML INJ 500 ML IV SCH (05:02)
[2017-01-07] MEDS: LEVOTHYROXINE SODIUM 125 MCG TAB PO SCH (05:03)
[2017-01-07] MEDS: DILTIAZEM-CD 240 MG CAP ER PO SCH ×2 (08:33→21:24)
[2017-01-07] MEDS: MULTIVITAMINS/MINERALS THERAPEUTIC TAB PO SCH (08:33)
[2017-01-07] MEDS: DOCUSATE SODIUM 100 MG CAP PO SCH ×2 (08:33→21:23)
[2017-01-07] MEDS: SUCRALFATE 1 GM TAB PO SCH ×3 (08:34→18:10)
[2017-01-07] MEDS: PANTOPRAZOLE SOD 40 MG DELAYED RELEASE TAB PO SCH (08:34)
[2017-01-07] MEDS: METOCLOPRAMIDE HCL 10 MG TAB PO SCH ×3 (08:34→18:10)
[2017-01-07] MEDS: SENNOSIDES 8.6 MG TAB PO SCH (08:34)
[2017-01-07] MEDS: FAMOTIDINE 20 MG TAB PO SCH ×2 (08:34→21:24)
[2017-01-07] MEDS: DIGOXIN 0.25 MG TAB PO SCH (08:34)
[2017-01-07] MEDS: AMIODARONE 200 MG TAB PO SCH ×2 (08:34→21:23)
[2017-01-07] MEDS: TIOTROPIUM BROMIDE 18 MCG INH INH SCH (08:35)
[2017-01-07] MEDS: SODIUM CHLORIDE 0.9% FLUSH 5 ML FLUSH FLUSH SCH ×2 (08:35→21:25)
[2017-01-07 09:44] LABS: BASOPHIL # 0.1 TH/MM3 (0-0.2); BASOPHIL % 0.9 % (0.0-2.0); HEMATOCRIT 41.6 % (39.0-51.0); HEMO FLAGS DIFF FINAL; LYMPHOCYTE # 0.8 TH/MM3 (1.0-4.8); MEAN CELL VOLUME 85.4 FL (80.0-100.0); MEAN CORPUSCULAR HEMOGLOBIN 27.9 PG (27.0-34.0); MEAN CORPUSCULAR HGB CONC 32.7 % (32.0-36.0); MONO % 6.6 % (0.0-8.0); NEUT % 86.5 % (16.0-70.0); PLATELET COUNT 295 TH/MM3 (150-450); RED BLOOD COUNT 4.87 MIL/MM3 (4.50-5.90); RED CELL DISTRIBUTION WIDTH 17.8 % (11.6-17.2); WHITE BLOOD COUNT 12.7 TH/MM3 (4.0-11.0)
[2017-01-07 09:56] LABS: BICARBONATE 28.7 MEQ/L (21.0-32.0); POTASSIUM 4.3 MEQ/L (3.5-5.1)
[2017-01-07] MEDS: RIVAROXABAN 20 MG TAB PO SCH (09:56)
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
[2017-01-07] MEDS: BACITRACIN OPHT OINT 3.5 GM TUBO EACH EYE SCH ×3 (11:35→18:00)
[2017-01-07] MEDS: BACITRACIN TOP OINT 15 GM TUBE TOP SCH ×3 (11:35→18:00)
[2017-01-07] MEDS: INSULIN ASPART SUPPLEMENTAL SCALE SQ SCH ×3 (11:36→21:00)
[2017-01-07] MEDS ORDERED: FUROSEMIDE 20 MG/2 ML VIAL IV PUSH ONE (12:15)
--- NOTE | 2017-01-07 14:26 | PD.CARD.PN ---
Subjective Subjective Remarks Feeling a little better. Objective Medications Current Medications Medications (Trade) Dose Ordered Sig/Melissa Route Start Time Stop Time Status Last Admin (Roxicodone) 10 mg Q4H PRN PO 01/02/17 21:30 01/07/17 08:33 (Morphine Inj) 2 mg Q4H PRN IV PUSH 01/02/17 21:30 01/07/17 09:56 (Ativan) 0.5 mg Q6H PRN PO 01/02/17 21:30 01/06/17 21:49 (NS Flush) 2 ml UNSCH PRN FLUSH 01/02/17 21:30 (NS Flush) 2 ml BID FLUSH 01/03/17 09:00 01/07/17 08:35 (Tylenol) 650 mg Q4H PRN PO 01/02/17 21:30 (Zofran Inj) 4 mg Q6H PRN IVP 01/02/17 21:30 01/07/17 11:38 (Dulcolax Supp) 10 mg DAILY PRN TN 01/02/17 21:30 (Milk Of Magnesia Liq) 30 ml Q12H PRN PO 01/02/17 21:30 (Narcan Inj) 0.4 mg UNSCH PRN IV 01/02/17 21:30 ([place]) 2 spray Q4H PRN EACH NARE 01/02/17 23:15 (Bacitracin Opht Oint) 1 applic Q6HR EACH EYE 01/03/17 00:00 01/07/17 11:35 (Baciguent Oint) 1 applic Q6HR TOP 01/03/17 00:00 01/07/17 11:35 (Cordarone) 200 mg BID PO 01/03/17 09:00 01/07/17 08:34 (Lipitor) 40 mg HS PO 01/03/17 21:00 01/05/17 22:11 (Colace) 100 mg BID PO 01/03/17 09:00 01/07/17 08:33 (Synthroid) 125 mcg DAILY@06 PO 01/03/17 06:00 01/07/17 05:03 (Theragran M Tab) 1 tab DAILY PO 01/03/17 09:00 01/07/17 08:33 (Pepcid) 20 mg BID PO 01/03/17 09:00 01/07/17 08:34 (Xarelto) 20 mg DAILY PO 01/03/17 09:00 01/07/17 09:56 (Carafate) 1 gm TIDAC PO 01/03/17 08:00 01/07/17 11:36 (Spiriva Inh) 18 mcg DAILY INH 01/03/17 09:00 01/07/17 08:35 (Desyrel) 200 mg HS PO 01/03/17 21:00 01/06/17 21:00 (Proair Hfa Inh) 2 puff Q4HR PRN INH 01/02/17 23:30 (D50w (Vial) Inj) 25 ml UNSCH PRN IV PUSH 01/02/17 23:30 (Glucagon Inj) 1 mg UNSCH PRN OTHER 01/02/17 23:30 (Synthroid) 100 mcg DAILY@06 PO 01/03/17 06:00 01/07/17 05:02 (Reglan) 5 mg TID PO 01/03/17 13:00 01/07/17 13:17 (Protonix) 40 mg DAILY PO 01/03/17 10:00 01/07/17 08:34 (NovoLIN 70/30 INJ) 25 units BID@08,17 SQ 01/03/17 10:00 Hold 01/05/17 17:08 Sennosides 17.2 mg 17.2 mg DAILY PO 01/03/17 10:00 01/07/17 08:34 Piperacillin Sod/ Tazobactam Sod 100 ml @ 200 mls/hr Q6H IV 01/03/17 13:00 01/07/17 13:15 Pharmacy Profile Note 0 ml @ 0 mls/hr UNSCH OTHER 01/03/17 12:00 (Vancomycin Inj/ NS 500 ml Inj) 520 ml @ 250 mls/hr Q24H IV 01/07/17 06:00 01/07/17 05:02 Miscellaneous Information SPECIFIC LAB TO BE DRAWN:[facility] DATE TO BE . ONCE ONCE XX 01/09/17 05:45 01/09/17 05:46 (Cardizem Cd) 240 mg BID PO 01/06/17 21:00 01/07/17 08:33 (Lanoxin) 0.25 mg DAILY PO 01/07/17 09:00 01/07/17 08:34 (Flomax) 0.4 mg HS PO 01/07/17 21:00 Vital Signs / I&O Vital Signs Date Time Temp Pulse Resp B/P Pulse Ox O2 Delivery O2 Flow Rate FiO2 01/07/17 12:29 97.9 130 20 116/72 93 01/07/17 10:05 18 01/07/17 08:10 97.6 133 20 146/91 95 01/07/17 08:05 133 01/07/17 08:05 133 01/07/17 00:00 97.8 129 22 137/86 94 01/06/17 20:00 97.7 89 22 128/64 94 01/06/17 18:00 132 01/06/17 16:06 97.4 126 18 131/80 93 I/O 01/06/17 01/06/17 01/06/17 01/07/17 01/07/17 01/07/17 07:00 15:00 23:00 07:00 15:00 23:00 Intake Total 240 ml 360 ml Output Total 2150 ml 1100 ml 400 ml Balance 240 ml -1790 ml -1100 ml -400 ml Intake Oral 240 ml 360 ml Output Urine Total 2150 ml 1100 ml 400 ml # Bowel Movements 1 0 Physical Exam GENERAL: Well-nourished, well-developed patient. SKIN: Warm and dry. Facial monroy noted. HEAD: Normocephalic. EYES: No scleral icterus. No injection or drainage. NECK: Supple, trachea midline. No JVD or lymphadenopathy. CARDIOVASCULAR: Irregular rhythm, tachycardic rate. RESPIRATORY: Breath sounds equal bilaterally. No accessory muscle use. GASTROINTESTINAL: Abdomen soft, non-tender, nondistended. EXTREMITIES: No cyanosis, or edema. NEUROLOGICAL: Awake, alert, and oriented x 3. Non-focal. Laboratory Laboratory Tests Test 01/07/17 08:40 White Blood Count 12.7 TH/MM3 Red Blood Count 4.87 MIL/MM3 Hemoglobin 13.6 GM/DL Hematocrit 41.6 % Mean Corpuscular Volume 85.4 FL Mean Corpuscular Hemoglobin 27.9 PG Mean Corpuscular Hemoglobin 32.7 % Concent Red Cell Distribution Width 17.8 % Platelet Count 295 TH/MM3 Mean Platelet Volume 8.3 FL Neutrophils (%) (Auto) 86.5 % Lymphocytes (%) (Auto) 6.0 % Monocytes (%) (Auto) 6.6 % Eosinophils (%) (Auto) 0.0 % Basophils (%) (Auto) 0.9 % Neutrophils # (Auto) 11.0 TH/MM3 Lymphocytes # (Auto) 0.8 TH/MM3 Monocytes # (Auto) 0.8 TH/MM3 Eosinophils # (Auto) 0.0 TH/MM3 Basophils # (Auto) 0.1 TH/MM3 CBC Comment DIFF FINAL Differential Comment Sodium Level 137 MEQ/L Potassium Level 4.3 MEQ/L Chloride Level 102 MEQ/L Carbon Dioxide Level 28.7 MEQ/L Anion Gap 6 MEQ/L Blood Urea Nitrogen 16 MG/DL Creatinine 0.84 MG/DL Estimat Glomerular Filtration 89 ML/MIN Rate Random Glucose 272 MG/DL Calcium Level 8.2 MG/DL Assessment and Plan Problem List: (1) Atrial fibrillation Assessment and Plan: On amiodarone, cardizem CD and digoxin. Rate uncontrolled. Anticoagulated with Xarelto. May need cardioversion vs. ablation if rate remains uncontrolled. (2) Pneumonia Assessment and Plan: Improving on Zosyn and vancomycin. Primary managing. Assessment and Plan D/W pt., RN, Dr. Viveros. Problem Qualifiers (1) Atrial fibrillation: Qualified Code: I48.0 - Paroxysmal atrial fibrillation (2) Pneumonia: Rox Anglin Jan 07, 2017 14:26
--- NOTE | 2017-01-07 15:57 | HHI.PYPN ---
Subjective Remarks Patient was seen today for psychiatric reevaluation in the medical floor, patient is stays that he has been frustrated with the way that he has been treated in the hospital, he states that doctors come in and out and on giving any information about his prognosis, discharge plan. He says that is not is sad for him to be laying down in the bed the whole day, with pain, with a feeding tube in his nose, not knowing if is progressing or not. He says that what is bothering the most is the sensation of losing the control of himself and having to depend on others. He is stays that he has expressed a suicidal statement recently in the context of frustration, but he doesn't want to , he doesn't really wants to commit suicide, he has too many reasons to live for. What he wants, he states, is to get better as soon as possible and go back home to his routine and life. He denies suicidal or homicidal ideation, he denies visual and auditory hallucinations. Patient is fully oriented 3, not gross cognitive impairment observed. Patient is actually calm, cooperative and pleasant, with a good sense of humor despise the situation. He does report problems sleeping at night and claustrophobic anxiety sensation during the day. He will appreciated medication to help him to sleep and to cut the edges of anxiety during the day. Review of Systems Constitutional: COMPLAINS OF: Diaphoretic episodes, DENIES: Fatigue, Fever, Weight gain, Weight loss, Chills, Dizziness, Change in appetite, Night Sweats Other No significant changes since 01/01/2017 Objective Alert: Yes [place]: Person, Place, Situation Mood: Calm Affect: Euthymic Memory Intact: Immediate, Recent, Remote Hallucinations: Other (he denies) Delusions: No Delusion Type: Other (none) Suicidal: Ideation (he denies) Homicidal: Ideation (he denies) Insight/Judgement Good Labs Test 01/07/17 08:40 White Blood Count 12.7 TH/MM3 Red Blood Count 4.87 MIL/MM3 Hemoglobin 13.6 GM/DL Hematocrit 41.6 % Mean Corpuscular Volume 85.4 FL Mean Corpuscular Hemoglobin 27.9 PG Mean Corpuscular Hemoglobin 32.7 % Concent Red Cell Distribution Width 17.8 % Platelet Count 295 TH/MM3 Mean Platelet Volume 8.3 FL Neutrophils (%) (Auto) 86.5 % Lymphocytes (%) (Auto) 6.0 % Monocytes (%) (Auto) 6.6 % Eosinophils (%) (Auto) 0.0 % Basophils (%) (Auto) 0.9 % Neutrophils # (Auto) 11.0 TH/MM3 Lymphocytes # (Auto) 0.8 TH/MM3 Monocytes # (Auto) 0.8 TH/MM3 Eosinophils # (Auto) 0.0 TH/MM3 Basophils # (Auto) 0.1 TH/MM3 CBC Comment DIFF FINAL Differential Comment Sodium Level 137 MEQ/L Potassium Level 4.3 MEQ/L Chloride Level 102 MEQ/L Carbon Dioxide Level 28.7 MEQ/L Anion Gap 6 MEQ/L Blood Urea Nitrogen 16 MG/DL Creatinine 0.84 MG/DL Estimat Glomerular Filtration 89 ML/MIN Rate Random Glucose 272 MG/DL Calcium Level 8.2 MG/DL Date/Time Procedure Status Source Growth 01/04/17 18:52 Gram Stain - Final Complete Sputum Expectorated Sputum 01/04/17 18:52 Sputum Culture - Final Complete Sputum Expectorated Sputum HEAVY GROWTH NORMAL RESPIRATORY ANAI Vitals/IOs Vital Signs Date Time Temp Pulse Resp B/P Pulse Ox O2 Delivery O2 Flow Rate FiO2 01/07/17 14:33 18 01/07/17 12:29 97.9 130 116/72 93 01/06/17 08:21 Face Tent 28 01/05/17 22:19 6.00 Intake and Output 01/06/17 01/06/17 01/07/17 08:00 16:00 00:00 Intake Total 240 ml 360 ml Output Total 2150 ml Balance 240 ml -1790 ml Assessment & Plan Problem List: (1) Adjustment disorder with mixed anxiety and depressed mood Assessment & Plan: On psychiatric evaluation the patient doesn't present acute sadness, frustration, anxiety, and probably is sleeping secondary to acute medical problems. However, the patient denies depressive symptoms, such as amotivation, worthlessness, hopelessness, helplessness, anhedonia, he denies suicidal and homicidal ideation. Protective factors for suicidality are identified at this moment. Patient does not meet criteria for psychiatric hospitalization at this moment. We'll start trazodone 100 mg at bedtime to help with his mood and with sleep, will order hydroxyzine 25 mg twice a day for anxiety. [place] act can be lifted, the patient does not need a sitter. We'll follow-up. ICD Code: F43.23 Assessment & Plan Estimated LOS: days Justification for Cont. Inpt. Patient does not meet criteria for psychiatric admission at this moment Olayinka Arriaza MD Jan 07, 2017 15:57
--- NOTE | 2017-01-07 17:36 | HHI.PR ---
Subjective Remarks 76 YOWM with COPD, Facial monroy, AF,DM Mild sob Occ cough No Fever Feels anxious Tolerates PO, on supplemental TF Seen by Psych. Objective Vital Signs Vital Signs Date Time Temp Pulse Resp B/P Pulse Ox O2 Delivery O2 Flow Rate FiO2 01/07/17 17:13 95.4 75 20 106/65 94 01/07/17 14:33 18 01/07/17 12:29 97.9 130 20 116/72 93 01/07/17 08:10 97.6 133 20 146/91 95 01/07/17 08:05 133 01/07/17 08:05 133 01/07/17 00:00 97.8 129 22 137/86 94 01/06/17 20:00 97.7 89 22 128/64 94 01/06/17 18:00 132 I/O 01/06/17 01/06/17 01/06/17 01/07/17 01/07/17 01/07/17 07:00 15:00 23:00 07:00 15:00 23:00 Intake Total 240 ml 360 ml Output Total 2150 ml 1100 ml 400 ml 375 ml Balance 240 ml -1790 ml -1100 ml -400 ml -375 ml Intake Oral 240 ml 360 ml Output Urine Total 2150 ml 1100 ml 400 ml 375 ml # Bowel Movements 1 0 Result Diagram: 01/07/17 0840 01/07/17 0840 Objective Remarks GENERALWBWN Wm mild sob: SKIN: Warm and dry. HEAD: Normocephalic. Healing facial monroy EYES: No scleral icterus. No injection or drainage. NECK: Supple, trachea midline. No JVD or lymphadenopathy. CARDIOVASCULAR: Regular rate and rhythm without murmurs, gallops, or rubs. RESPIRATORY: Breath sounds equal bilaterally. No accessory muscle use. GASTROINTESTINAL: Abdomen soft, non-tender, nondistended. MUSCULOSKELETAL: No cyanosis, or edema. BACK: Nontender without obvious deformity. No CVA tenderness. A/P Assessment and Plan COPD DM AF Facial monroy Nicotine use GERD and Gastroparesis PLAN: Aerosol nebs Spiriva daily Smoking cessation Stable on Bimal Amaya MD Jan 07, 2017 17:36
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
[2017-01-07] MEDS: ATORVASTATIN 40 MG TAB PO SCH (21:24)
[2017-01-07] MEDS: hydrOXYzine HCL 25 MG TAB PO SCH (21:24)
[2017-01-07] MEDS: traZODone HCL 100 MG TAB PO SCH ×2 (21:24→21:30)
[2017-01-07] MEDS: LORazepam 0.5 MG TAB PO PRN (21:24)
[2017-01-07] MEDS: TAMSULOSIN HCL 0.4 MG CAP PO SCH (21:25)
[2017-01-08] VITALS (8 sets, daily range): BP systolic 112–139; BP diastolic 60–78; PULSE 65–133; RESP 17–20; TEMP 95.2–97.3; O2SAT 91–94
[2017-01-08] MEDS: MORPHINE SULFATE 4 MG/ML INJ IV PUSH PRN ×2 (00:04→05:22)
[2017-01-08] MEDS: BACITRACIN OPHT OINT 3.5 GM TUBO EACH EYE SCH ×4 (00:10→17:24)
[2017-01-08] MEDS: PIPERACIL-TAZO 4.5 GM PREMIX 100 ML IV SCH ×4 (00:10→18:05)
[2017-01-08] MEDS: BACITRACIN TOP OINT 15 GM TUBE TOP SCH ×4 (00:11→17:24)
[2017-01-08] MEDS: LEVOTHYROXINE SODIUM 100 MCG TAB PO SCH (05:05)
[2017-01-08] MEDS: LEVOTHYROXINE SODIUM 125 MCG TAB PO SCH (05:05)
[2017-01-08] MEDS: VANCOMYCIN INJ 2,000 MG in SODIUM CHLORID 0.9% 500 ML INJ 500 ML IV SCH (05:05)
[2017-01-08] MEDS: INSULIN ASPART SUPPLEMENTAL SCALE SQ SCH ×4 (05:23→21:52)
[2017-01-08 07:43] LABS: AUTOMATED NEUTROPHIL # 9.7 TH/MM3 (1.8-7.7); BASOPHIL # 0.1 TH/MM3 (0-0.2); BASOPHIL % 0.5 % (0.0-2.0); EOSINOPHIL % 0.2 % (0.0-4.0); HEMATOCRIT 37.4 % (39.0-51.0); HEMO FLAGS DIFF FINAL; LYMPH % 7.9 % (9.0-44.0); LYMPHOCYTE # 0.9 TH/MM3 (1.0-4.8); MEAN CELL VOLUME 86.8 FL (80.0-100.0); MEAN CORPUSCULAR HEMOGLOBIN 28.1 PG (27.0-34.0); MEAN CORPUSCULAR HGB CONC 32.4 % (32.0-36.0); MONO % 8.6 % (0.0-8.0); NEUT % 82.8 % (16.0-70.0); PLATELET COUNT 249 TH/MM3 (150-450); RED CELL DISTRIBUTION WIDTH 18.1 % (11.6-17.2); WHITE BLOOD COUNT 11.8 TH/MM3 (4.0-11.0)
[2017-01-08 08:13] LABS: BICARBONATE 28.4 MEQ/L (21.0-32.0); POTASSIUM 4.5 MEQ/L (3.5-5.1)
[2017-01-08] MEDS: DILTIAZEM-CD 240 MG CAP ER PO SCH ×2 (08:33→21:51)
[2017-01-08] MEDS: PANTOPRAZOLE SOD 40 MG DELAYED RELEASE TAB PO SCH (08:33)
[2017-01-08] MEDS: FAMOTIDINE 20 MG TAB PO SCH ×2 (08:34→21:53)
[2017-01-08] MEDS: AMIODARONE 200 MG TAB PO SCH ×2 (08:34→21:51)
[2017-01-08] MEDS: DIGOXIN 0.25 MG TAB PO SCH (08:34)
[2017-01-08] MEDS: hydrOXYzine HCL 25 MG TAB PO SCH ×2 (08:34→21:51)
[2017-01-08] MEDS: METOCLOPRAMIDE HCL 10 MG TAB PO SCH ×3 (08:34→17:24)
[2017-01-08] MEDS: MULTIVITAMINS/MINERALS THERAPEUTIC TAB PO SCH (08:35)
[2017-01-08] MEDS: SODIUM CHLORIDE 0.9% FLUSH 5 ML FLUSH FLUSH SCH ×2 (08:36→21:50)
[2017-01-08] MEDS: DOCUSATE SODIUM 100 MG CAP PO SCH ×2 (08:36→21:52)
[2017-01-08] MEDS: TIOTROPIUM BROMIDE 18 MCG INH INH SCH (08:36)
[2017-01-08] MEDS: SENNOSIDES 8.6 MG TAB PO SCH (08:36)
[2017-01-08] MEDS: SUCRALFATE 1 GM TAB PO SCH ×4 (08:36→16:13)
[2017-01-08] MEDS: INSULIN HUMAN NPH/R 70/30 1,000 UNITS/10 ML VIAL SQ SCH ×2 (08:44→17:23)
[2017-01-08] MEDS: RIVAROXABAN 20 MG TAB PO SCH (09:54)
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
--- NOTE | 2017-01-08 16:33 | HHI.PR ---
Subjective Remarks 76 YOWM with COPD, Facial monroy, AF,DM Mild sob Occ cough No Fever Feels anxious Tolerates PO, Seen by Psych. TF stopped Objective Vital Signs Vital Signs Date Time Temp Pulse Resp B/P Pulse Ox O2 Delivery O2 Flow Rate FiO2 01/08/17 16:05 95.4 65 18 119/67 93 01/08/17 12:05 97.3 130 18 112/78 93 01/08/17 11:10 93 Face Tent 6.00 28 01/08/17 10:05 18 01/08/17 08:00 96.3 65 18 139/65 91 01/08/17 05:02 95.2 68 17 118/60 91 01/08/17 00:40 96.5 101 20 116/75 91 01/07/17 20:48 97.7 112 20 112/77 93 01/07/17 18:48 16 01/07/17 18:11 93 Face Tent 21 01/07/17 17:13 95.4 75 20 106/65 94 I/O 01/07/17 01/07/17 01/07/17 01/08/17 01/08/17 01/08/17 07:00 15:00 23:00 07:00 15:00 23:00 Intake Total 360 ml Output Total 1100 ml 400 ml 375 ml 300 ml Balance -1100 ml -400 ml -375 ml 60 ml Intake Oral 360 ml Output Urine Total 1100 ml 400 ml 375 ml 300 ml # Voids 0 # Bowel Movements 0 1 Result Diagram: 01/08/1772701/08/1728 Objective Remarks GENERALWBWN Wm mild sob: SKIN: Warm and dry. HEAD: Normocephalic. Healing facial monroy EYES: No scleral icterus. No injection or drainage. NECK: Supple, trachea midline. No JVD or lymphadenopathy. CARDIOVASCULAR: Regular rate and rhythm without murmurs, gallops, or rubs. RESPIRATORY: Breath sounds equal bilaterally. No accessory muscle use. GASTROINTESTINAL: Abdomen soft, non-tender, nondistended. MUSCULOSKELETAL: No cyanosis, or edema. BACK: Nontender without obvious deformity. No CVA tenderness. A/P Assessment and Plan COPD DM AF Facial monroy Nicotine use GERD and Gastroparesis PLAN: Aerosol nebs Spiriva daily Smoking cessation Stable on RA Encourage PO Bimal Borden MD Jan 08, 2017 16:33
[2017-01-08] MEDS: LORazepam 0.5 MG TAB PO PRN (21:50)
[2017-01-08] MEDS: traZODone HCL 100 MG TAB PO SCH ×2 (21:51)
[2017-01-08] MEDS: ATORVASTATIN 40 MG TAB PO SCH (21:51)
[2017-01-08] MEDS: TAMSULOSIN HCL 0.4 MG CAP PO SCH (21:51)
[2017-01-09] VITALS (8 sets, daily range): BP systolic 117–129; BP diastolic 55–78; PULSE 62–130; RESP 16–26; TEMP 96.5–99; O2SAT 92–100
[2017-01-09] MEDS: BACITRACIN TOP OINT 15 GM TUBE TOP SCH ×4 (00:21→17:15)
[2017-01-09] MEDS: BACITRACIN OPHT OINT 3.5 GM TUBO EACH EYE SCH ×4 (00:21→17:16)
[2017-01-09] MEDS: PIPERACIL-TAZO 4.5 GM PREMIX 100 ML IV SCH ×4 (00:26→17:14)
[2017-01-09] MEDS ORDERED: PHARMACY ORDERED LAB XX ONE (05:45)
[2017-01-09] MEDS: LEVOTHYROXINE SODIUM 125 MCG TAB PO SCH (06:12)
[2017-01-09] MEDS: LEVOTHYROXINE SODIUM 100 MCG TAB PO SCH (06:12)
[2017-01-09] MEDS: VANCOMYCIN INJ 2,000 MG in SODIUM CHLORID 0.9% 500 ML INJ 500 ML IV SCH (06:15)
[2017-01-09] MEDS: INSULIN ASPART SUPPLEMENTAL SCALE SQ SCH ×4 (07:00→21:11)
[2017-01-09] MEDS: DOCUSATE SODIUM 100 MG CAP PO SCH ×2 (09:00→21:00)
[2017-01-09] MEDS: SENNOSIDES 8.6 MG TAB PO SCH (09:00)
[2017-01-09] MEDS: FAMOTIDINE 20 MG TAB PO SCH (09:17)
[2017-01-09] MEDS: SUCRALFATE 1 GM TAB PO SCH ×3 (09:17→16:06)
[2017-01-09] MEDS: DIGOXIN 0.25 MG TAB PO SCH (09:18)
[2017-01-09] MEDS: PANTOPRAZOLE SOD 40 MG DELAYED RELEASE TAB PO SCH (09:18)
[2017-01-09] MEDS: AMIODARONE 200 MG TAB PO SCH ×2 (09:18→21:00)
[2017-01-09] MEDS: MULTIVITAMINS/MINERALS THERAPEUTIC TAB PO SCH (09:18)
[2017-01-09] MEDS: METOCLOPRAMIDE HCL 10 MG TAB PO SCH ×3 (09:19→17:16)
[2017-01-09] MEDS: RIVAROXABAN 20 MG TAB PO SCH (09:19)
[2017-01-09] MEDS: DILTIAZEM-CD 240 MG CAP ER PO SCH ×2 (09:20→21:00)
[2017-01-09] MEDS: hydrOXYzine HCL 25 MG TAB PO SCH ×2 (09:20→21:00)
[2017-01-09] MEDS: SODIUM CHLORIDE 0.9% FLUSH 5 ML FLUSH FLUSH SCH (09:22)
[2017-01-09] MEDS: INSULIN HUMAN NPH/R 70/30 1,000 UNITS/10 ML VIAL SQ SCH ×2 (09:33→17:19)
[2017-01-09] MEDS: TIOTROPIUM BROMIDE 18 MCG INH INH SCH (10:11)
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
--- NOTE | 2017-01-09 18:19 | HHI.PR ---
Subjective Remarks 76 YOWM with COPD, Facial monroy, AF,DM Mild sob Occ cough No Fever Feels anxious Tolerates PO, Objective Vital Signs Vital Signs Date Time Temp Pulse Resp B/P Pulse Ox O2 Delivery O2 Flow Rate FiO2 01/09/17 16:00 99.0 65 20 120/55 95 01/09/17 14:07 92 21 01/09/17 12:00 96.8 84 19 125/62 100 01/09/17 08:00 96.7 81 16 127/78 93 01/09/17 05:01 96.5 130 26 117/61 93 01/09/17 01:07 97.6 115 24 129/76 93 01/08/17 21:05 133 01/08/17 20:53 97.2 96 20 118/73 94 I/O 01/08/17 01/08/17 01/08/17 01/09/17 01/09/17 01/09/17 07:00 15:00 23:00 07:00 15:00 23:00 Intake Total 360 ml 1090 ml 750 ml Output Total 300 ml 500 ml 800 ml Balance 60 ml 590 ml -50 ml Intake Oral 360 ml 1090 ml 750 ml Output Urine Total 300 ml 500 ml 800 ml # Bowel Movements 1 1 Result Diagram: 01/08/1772701/08/17727 Objective Remarks GENERALWBWN Wm mild sob: SKIN: Warm and dry. HEAD: Normocephalic. Healing facial monroy EYES: No scleral icterus. No injection or drainage. NECK: Supple, trachea midline. No JVD or lymphadenopathy. CARDIOVASCULAR: Regular rate and rhythm without murmurs, gallops, or rubs. RESPIRATORY: Breath sounds equal bilaterally. No accessory muscle use. GASTROINTESTINAL: Abdomen soft, non-tender, nondistended. MUSCULOSKELETAL: No cyanosis, or edema. BACK: Nontender without obvious deformity. No CVA tenderness. A/P Assessment and Plan COPD DM AF Facial monroy Nicotine use GERD and Gastroparesis PLAN: Aerosol nebs Spiriva daily Smoking cessation Stable on RA Encourage PO Available prn over weekend. Bimal Borden MD Jan 09, 2017 18:19
--- NOTE | 2017-01-09 19:57 | HHI.PR ---
Subjective Remarks Want to go home Objective Vital Signs Date Time Temp Pulse Resp B/P Pulse Ox O2 Delivery O2 Flow Rate FiO2 01/09/17 18:43 95 21 01/09/17 16:00 99.0 65 20 120/55 95 01/09/17 14:07 92 21 01/09/17 12:00 96.8 84 19 125/62 100 01/09/17 08:00 96.7 81 16 127/78 93 01/09/17 05:01 96.5 130 26 117/61 93 01/09/17 01:07 97.6 115 24 129/76 93 01/08/17 21:05 133 01/08/17 20:53 97.2 96 20 118/73 94 I/O 01/08/17 01/08/17 01/08/17 01/09/17 01/09/17 01/09/17 07:00 15:00 23:00 07:00 15:00 23:00 Intake Total 360 ml 1090 ml 750 ml Output Total 300 ml 500 ml 800 ml Balance 60 ml 590 ml -50 ml Intake Oral 360 ml 1090 ml 750 ml Output Urine Total 300 ml 500 ml 800 ml # Bowel Movements 1 1 Result Diagram: 01/08/1772701/08/17727 Imaging Alert, fully oriented Facial burn healing Lungs: ventilated Heart: S1, S2 regular Abdomen: obese, no mass Ext: no edema Last Impressions Chest X-Ray 01/03/17 0000 Signed Impressions: Service Date/Time: Tuesday, January 03, 2017 08:04 - CONCLUSION: Bilateral airspace disease. Small left pleural effusion. Mateo Thomas MD Current Medications Medications (Trade) Dose Ordered Sig/Melissa Route Start Time Stop Time Status Last Admin (Roxicodone) 10 mg Q4H PRN PO 01/02/17 21:30 01/09/17 13:17 (Morphine Inj) 2 mg Q4H PRN IV PUSH 01/02/17 21:30 01/08/17 05:22 (Ativan) 0.5 mg Q6H PRN PO 01/02/17 21:30 01/08/17 21:50 (NS Flush) 2 ml UNSCH PRN FLUSH 01/02/17 21:30 01/08/17 05:25 (NS Flush) 2 ml BID FLUSH 01/03/17 09:00 01/09/17 09:22 (Tylenol) 650 mg Q4H PRN PO 01/02/17 21:30 (Zofran Inj) 4 mg Q6H PRN IVP 01/02/17 21:30 01/07/17 11:38 (Dulcolax Supp) 10 mg DAILY PRN [place] 01/02/17 21:30 (Milk Of Magnesia Liq) 30 ml Q12H PRN PO 01/02/17 21:30 (Narcan Inj) 0.4 mg UNSCH PRN IV 01/02/17 21:30 ([place]) 2 spray Q4H PRN EACH NARE 01/02/17 23:15 (Bacitracin Opht Oint) 1 applic Q6HR EACH EYE 01/03/17 00:00 01/09/17 17:16 (Baciguent Oint) 1 applic Q6HR TOP 01/03/17 00:00 01/09/17 17:15 (Cordarone) 200 mg BID PO 01/03/17 09:00 01/09/17 09:18 (Lipitor) 40 mg HS PO 01/03/17 21:00 01/08/17 21:51 (Colace) 100 mg BID PO 01/03/17 09:00 01/08/17 08:36 (Synthroid) 125 mcg DAILY@06 PO 01/03/17 06:00 01/09/17 06:12 (Theragran M Tab) 1 tab DAILY PO 01/03/17 09:00 01/09/17 09:18 (Pepcid) 20 mg BID PO 01/03/17 09:00 01/09/17 09:17 (Xarelto) 20 mg DAILY PO 01/03/17 09:00 01/09/17 09:19 (Carafate) 1 gm TIDAC PO 01/03/17 08:00 01/09/17 09:17 (Spiriva Inh) 18 mcg DAILY INH 01/03/17 09:00 01/09/17 10:11 (Desyrel) 200 mg HS PO 01/03/17 21:00 01/08/17 21:51 (Proair Hfa Inh) 2 puff Q4HR PRN INH 01/02/17 23:30 (D50w (Vial) Inj) 25 ml UNSCH PRN IV PUSH 01/02/17 23:30 (Glucagon Inj) 1 mg UNSCH PRN OTHER 01/02/17 23:30 (Synthroid) 100 mcg DAILY@06 PO 01/03/17 06:00 01/09/17 06:12 (Reglan) 5 mg TID PO 01/03/17 13:00 01/09/17 17:16 (Protonix) 40 mg DAILY PO 01/03/17 10:00 01/09/17 09:18 Sennosides 17.2 mg 17.2 mg DAILY PO 01/03/17 10:00 01/08/17 08:36 Piperacillin Sod/ Tazobactam Sod 100 ml @ 200 mls/hr Q6H IV 01/03/17 13:00 01/09/17 17:14 (Vancomycin Consult Pharmacy) 0 ml @ 0 mls/hr UNSCH OTHER 01/03/17 12:00 (Cardizem Cd) 240 mg BID PO 01/06/17 21:00 01/09/17 09:20 (Lanoxin) 0.25 mg DAILY PO 01/07/17 09:00 01/09/17 09:18 (Flomax) 0.4 mg HS PO 01/07/17 21:00 01/08/17 21:51 (Desyrel) 100 mg HS PO 01/07/17 21:00 01/08/17 21:51 (Atarax) 25 mg Q12HR PO 01/07/17 21:00 01/09/17 09:20 Insulin Human Isoph/Insulin Regular 15 units 15 units BID@08,17 SQ 01/08/17 09:00 01/09/17 17:19 (Vancomycin Inj/ NS 500 ml Inj) 515 ml @ 257.5 mls/ hr Q18H IV 01/10/17 00:00 Miscellaneous Information SPECIFIC LAB TO BE RIKI... ONCE ONCE XX 01/12/17 05:45 01/12/17 05:46 Assessment and Plan Problem List: (1) Atrial flutter with rapid ventricular response Status: Acute Plan: Telemetry show a regular rhythm. HR control. can be DH. Follow up as OP with me Continue on anticoagulation (2) Hypertension Status: Acute Plan: SBP 120. Stable Anxious. Want to go home. Ok to discharge Atiya Viveros MD Jan 09, 2017 19:57
[2017-01-09] MEDS: traZODone HCL 100 MG TAB PO SCH (21:00)
[2017-01-09] MEDS: ATORVASTATIN 40 MG TAB PO SCH (21:00)
[2017-01-09] MEDS: TAMSULOSIN HCL 0.4 MG CAP PO SCH (21:00)
[2017-01-09] MEDS: LORazepam 0.5 MG TAB PO PRN (21:01)
[2017-01-10] MEDS ORDERED: VANCOMYCIN 1,500 MG/NS 500 ML IV SCH ×2
[2017-01-10] MEDS ORDERED: VANCOMYCIN INJ 2,250 MG in SODIUM CHLORID 0.9% 500 ML INJ 500 ML IV SCH (06:00)
[2017-01-10] MEDS ORDERED: AMIO5TAB PO (08:28)
[2017-01-10] MEDS ORDERED: BACI500O9 TOPICAL (08:28)
[2017-01-10] MEDS ORDERED: CARD240C6 PO (08:28)
[2017-01-10] MEDS ORDERED: LEVO.1 PO (08:28)
[2017-01-10] MEDS ORDERED: SUCR1TAB PO (08:28)
[2017-01-10] MEDS ORDERED: DIGO0.25 PO (08:28)
[2017-01-10] MEDS ORDERED: ATOR40TA16 PO (08:28)
[2017-01-10] MEDS ORDERED: ZANT150T2 PO (08:28)
[2017-01-10] MEDS ORDERED: XARE20TA PO (08:28)
[2017-01-10] MEDS ORDERED: SPIRCAP INH (08:28)
[2017-01-10] MEDS ORDERED: PROT40TA PO (08:28)
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
[2017-01-12] MEDS ORDERED: PHARMACY ORDERED LAB XX ONE (05:45)
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
== END 2017-01-09 21:28 | disposition home health service (06) | DRG 949 ==
LOC: N05B 20:29
PROVIDERS: ADMIT Family Medicine; ATTEND Family Medicine
PROC: 0CJS8ZZ Inspection of Larynx, Via Natural or Artificial Opening Endoscopic (ICD-10-PCS; principal; 2017-01-04)
DX: T20.00XD Burn of unspecified degree of head, face, and neck, unspecified site, subsequent encounter (principal); J69.0 Pneumonitis due to inhalation of food and vomit; E11.65 Type 2 diabetes mellitus with hyperglycemia; T31.0 Burns involving less than 10% of body surface; J44.9 Chronic obstructive pulmonary disease, unspecified; I50.9 Heart failure, unspecified; Z99.81 Dependence on supplemental oxygen; X08.8XXD Exposure to other specified smoke, fire and flames, subsequent encounter; J45.909 Unspecified asthma, uncomplicated; I48.0 Paroxysmal atrial fibrillation; I10 Essential (primary) hypertension; R13.13 Dysphagia, pharyngeal phase; Z87.01 Personal history of pneumonia (recurrent); M19.90 Unspecified osteoarthritis, unspecified site; K31.84 Gastroparesis; K21.9 Gastro-esophageal reflux disease without esophagitis; F17.210 Nicotine dependence, cigarettes, uncomplicated; S22.049D Unspecified fracture of fourth thoracic vertebra, subsequent encounter for fracture with routine healing; I48.2 Chronic atrial fibrillation; F43.21 Adjustment disorder with depressed mood; Z79.02 Long term (current) use of antithrombotics/antiplatelets; N50.89 Other specified disorders of the male genital organs; Z79.4 Long term (current) use of insulin
CPT/HCPCS: 36600; 71010; 80048; 80053; 80202; 82805; 82948; 83735; 85025; 85027; 87070; 87205; 93005; J1160; J1815; J1940; J2270; J2405; J2543; J3370; J7040

== ENCOUNTER 2017-01-11 09:13 | Emergency (ER) | payer MEDICARE, OTHER ==
[~2017-01-11] VITALS: Ht 180.3 cm; Wt 93.0 kg
[~2017-01-11 09:13] MED LIST changes: -AUGM875T PO; +BACI500O9 TOPICAL; +DIGO0.25 PO; +DOCU100C PO; -FENT100D T-DERMAL; -FURO20TA PO; -GETGO ROLLING W1 MI1; -LANTUS2P SQ; +LEVO.1 PO; -LEVO200T4 PO; -MIRA3350 PO; -MSIR30 PO; +MULT1TAB84 PO; +N7030SS SQ; -NOVOINJ3 SQ; -ONDA1TAB17 PO; +OXYC-395 PO; -SENN1TAB2 PO; -TAMS0.4C4 PO; -TRAZ100T4 PO
[2017-01-11 09:23] VITALS: BP 128/71; PULSE 97; RESP 16; TEMP 98.2; O2SAT 95
[2017-01-11] MEDS ORDERED: FENT100D T-DERMAL (09:44)
[2017-01-11] MEDS ORDERED: TRAZ100T4 PO (09:46)
[2017-01-11] MEDS ORDERED: FURO20TA PO (09:46)
[2017-01-11] MEDS ORDERED: MSIR30 PO (09:47)
[2017-01-11] MEDS ORDERED: SENN8.8S7 PO (09:47)
[2017-01-11] MEDS ORDERED: ONDA1TAB17 PO (09:47)
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
[2017-01-11 11:12] VITALS: BP 136/65; PULSE 70; RESP 20; O2SAT 93
[2017-01-11] MEDS ORDERED: NYST100084 TOPICAL (11:17)
== END 2017-01-11 11:30 | disposition home or self-care (01) ==
LOC: PHED 09:13
DX: N50.89 Other specified disorders of the male genital organs (principal); I48.91 Unspecified atrial fibrillation; J44.9 Chronic obstructive pulmonary disease, unspecified; E11.9 Type 2 diabetes mellitus without complications; I10 Essential (primary) hypertension; E07.9 Disorder of thyroid, unspecified; Z72.0 Tobacco use; Z79.01 Long term (current) use of anticoagulants
CPT/HCPCS: 99283

== ENCOUNTER 2017-01-14 21:40 | Emergency (ER) | payer OTHER ==
[~2017-01-14 21:40] MED LIST changes: +FENT100D T-DERMAL; +FURO20TA PO; +MSIR30 PO; +NYST100084 TOPICAL; +ONDA1TAB17 PO; +SENN8.8S7 PO; -SUCR1TAB PO; +TRAZ100T4 PO
== END 2017-01-15 00:45 | disposition left against medical advice (07) ==
LOC: PHED 21:40
DX: R60.9 Edema, unspecified (principal)
CPT/HCPCS: 99281

== ENCOUNTER 2017-01-15 02:29 | Inpatient (IN) | payer OTHER, MEDICARE ==
[2017-01-15] VITALS (12 sets, daily range): BP systolic 115–147; BP diastolic 59–76; PULSE 88–126; RESP 2–22; TEMP 97–98; O2SAT 95–97
[~2017-01-15] VITALS: Ht 180.3 cm; Wt 84.2 kg
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
[2017-01-15 03:20] LABS: BLOOD GAS BASE EXCESS 6.6 mmol/L (-2-2); BLOOD GAS CARBOXYHEMOGLOBIN 3.1 % (0-4); BLOOD GAS HCO3 32 mmol/L (22-26); BLOOD GAS METHEMOGLOBIN 2.3 % (0-2); BLOOD GAS O2 HGB SATURATION 88 % (90-100); BLOOD GAS OXYGEN CONTENT 16.3 Vol % (12.0-20.0); BLOOD GAS PCO2 53 mmHg (38-42); BLOOD GAS PO2 69 mmHG (61-120); BLOOD GAS TOTAL HGB 13.1 G/DL (12.0-16.0); TEMP CORR TO 98.6
[2017-01-15 03:22] LABS: CRITICAL VALUE YES; DRAW SITE RT RADIAL; FIO2 50 %; LITER FLOW 6 L/M; NUMBER OF ARTERIAL PUNCTURES 1; OXYGEN DEVICE Venti Mask; STAT YES; ULNAR PULSE PRESENT
[2017-01-15] MEDS ORDERED: RESP: ALBUTEROL 2.5 MG/IPRATROPIUM 0.5 MG NEB (SCH) INH ONE (03:30)
[2017-01-15] MEDS ORDERED: methylPREDNISolone SOD SUCC 125 MG/2 ML VIAL IV PUSH ONE (03:30)
[2017-01-15 03:42] LABS: AUTOMATED NEUTROPHIL # 13.9 TH/MM3 (1.8-7.7); BASOPHIL # 0.1 TH/MM3 (0-0.2); BASOPHIL % 0.3 % (0.0-2.0); EOSINOPHIL % 0.1 % (0.0-4.0); HEMATOCRIT 39.5 % (39.0-51.0); HEMO FLAGS DIFF FINAL; LYMPH % 3.3 % (9.0-44.0); LYMPHOCYTE # 0.5 TH/MM3 (1.0-4.8); MEAN CELL VOLUME 85.8 FL (80.0-100.0); MEAN CORPUSCULAR HEMOGLOBIN 28.4 PG (27.0-34.0); MEAN CORPUSCULAR HGB CONC 33.1 % (32.0-36.0); NEUT % 90.3 % (16.0-70.0); PLATELET COUNT 282 TH/MM3 (150-450); RED CELL DISTRIBUTION WIDTH 17.8 % (11.6-17.2); WHITE BLOOD COUNT 15.4 TH/MM3 (4.0-11.0)
[2017-01-15] MEDS: RESP: ALBUTEROL 2.5 MG/3 ML NEB (SCH) INH ×2 (03:45→03:50)
--- NOTE | 2017-01-15 03:52 | RADRPT ---
EXAM DATE/TIME: 01/15/2017 02:50 [facility] COMPARISON: CHEST SINGLE AP, December 22, 2016, 23:16. CHEST SINGLE AP, January 03, 2017, 8:04. INDICATIONS : Short of breath with vomiting. MEDICAL HISTORY : None. SURGICAL HISTORY : Left shoulder surgery. ENCOUNTER: Initial ACUITY: 4 - 6 days PAIN SCORE: 4/10 LOCATION: Bilateral chest FINDINGS: The cardiac silhouette is enlarged in transverse diameter. There are findings of congestive heart fili lure with interstitial and alveolar opacity bilaterally. Small bilateral pleural effusions are identi fied. This is new when compared with the prior exam. CONCLUSION: 1. Cardiomegaly and findings of congestive heart failure. Phillip Wheat MD on January 15, 2017 at 3:50 Board Certified Radiologist. This report was verified electronically.
[2017-01-15 03:54] LABS: BACTERIA, URINE MOD /hpf; BLOOD, URINE LARGE (NEG); COMMENT (UR) CULTURE INDICATED; CULTURE IF INDICATED CULTURE INDICATED; GLUCOSE,URINE NEG (NEG); KETONE, URINE TRACE mg/dL (NEG); MUCUS URINE MOD /lpf (OCC); NITRITE,URINE POS (NEG); SQUAMOUS EPITHELIAL CELL URINE 1 /hpf (0-5); URINE COLOR RED (YELLW/STRAW)
[2017-01-15 03:54] LABS: ALT (GPT) 21 U/L (12-78); ANION GAP 8 MEQ/L (5-15); AST (GOT) 15 U/L (15-37); BICARBONATE 29.2 MEQ/L (21.0-32.0); BLOOD UREA NITROGEN 14 MG/DL (7-18); CHLORIDE 100 MEQ/L (98-107); GLOMERULAR FILTRATION RATE 100 ML/MIN (>89); POTASSIUM 4.1 MEQ/L (3.5-5.1); SODIUM (NA) 137 MEQ/L (136-145)
[2017-01-15 03:56] LABS: ALKALINE PHOSPHATASE 102 U/L (45-117); TOTAL BILIRUBIN ADULT 0.6 MG/DL (0.2-1.0)
[2017-01-15 04:08] LABS: DIGOXIN 1.6 NG/ML (0.8-2.0)
[2017-01-15] MEDS ORDERED: ONDANSETRON HCL 4 MG/2 ML VIAL ONE (04:24)
[2017-01-15] MEDS ORDERED: ACETAMINOPHEN 325 MG TAB PO PRN (05:45)
[2017-01-15] MEDS ORDERED: cefTRIAXone INJ 1,000 MG in SODIUM CHLORIDE 0.9% INJ 100 ML IV ONE (05:45)
[2017-01-15] MEDS ORDERED: SODIUM CHLORIDE 0.9% FLUSH 5 ML FLUSH FLUSH PRN (05:45)
[2017-01-15] MEDS ORDERED: FUROSEMIDE 40 MG/4 ML VIAL IV PUSH ONE (05:45)
[2017-01-15] MEDS ORDERED: BISACODYL 10 MG SUPP PR PRN (05:45)
[2017-01-15] MEDS ORDERED: ONDANSETRON HCL 4 MG/2 ML VIAL IVP PRN (05:45)
[2017-01-15] MEDS: PANTOPRAZOLE SOD 40 MG DELAYED RELEASE TAB PO SCH (08:23)
[2017-01-15] MEDS: DIGOXIN 0.25 MG TAB PO SCH (08:23)
[2017-01-15] MEDS: DILTIAZEM-CD 240 MG CAP ER PO SCH ×2 (08:23→21:38)
[2017-01-15] MEDS: RIVAROXABAN 20 MG TAB PO SCH (08:23)
[2017-01-15] MEDS: AMIODARONE 200 MG TAB PO SCH ×2 (08:23→21:38)
[2017-01-15] MEDS: MULTIVITAMINS/MINERALS THERAPEUTIC TAB PO SCH (08:23)
[2017-01-15] MEDS: SODIUM CHLORIDE 0.9% FLUSH 5 ML FLUSH FLUSH SCH ×2 (08:24→21:40)
[2017-01-15] MEDS: TIOTROPIUM BROMIDE 18 MCG INH INH SCH (08:25)
--- NOTE | 2017-01-15 08:34 | EKG ---
Date Performed: 01/15/2017 Time Performed: 05:45:09 PTAGE: 76 years EKG: ATRIAL FLUTTER/TACHYCARDIA WITH RAPID VENTRICULAR RESPONSE LOW QRS VOLTAGE IN EXTREMITY DANYELLE DS ABNORMAL QRS-T ANGLE ABNORMAL ECG nonspecific ST/T abnormality PREVIOUS TRACING : 01/03/2017 13.54 DOCTOR: Adriel Mora Interpretating Date/Time 01/15/2017 08:32:48
[2017-01-15] MEDS ORDERED: FUROSEMIDE 20 MG/2 ML VIAL IV PUSH SCH (09:00)
[2017-01-15] MEDS: DOCUSATE SODIUM 100 MG CAP PO SCH ×2 (09:48→21:38)
--- NOTE | 2017-01-15 11:20 | EKG ---
Date Performed: 01/15/2017 Time Performed: 08:29:33 PTAGE: 76 years EKG: SINUS TACHYCARDIA WITH FIRST DEGREE AV BLOCK LOW QRS VOLTAGE IN EXTREMITY LEADS ST DEVIATIO N AND MODERATE T-WAVE ABNORMALITY, CONSIDER ANTERIOR ISCHEMIA ABNORMAL ECG INTERPRETATION BASED ON A DEFAULT AGE OF 40 YEARS PREVIOUS TRACING : 01/15/2017 05.45 DOCTOR: Adriel Mora Interpretating Date/Time 01/15/2017 11:18:08
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
[2017-01-15] MEDS ORDERED: GLUCAGON 1 MG/ML VIAL OTHER PRN (16:30)
[2017-01-15] MEDS ORDERED: DEXTROSE 50% IN WATER 50 ML VIAL(D50) IV PUSH PRN (16:30)
[2017-01-15] MEDS: INSULIN HUMAN NPH/R 70/30 1,000 UNITS/10 ML VIAL SQ SCH (16:54)
[2017-01-15] MEDS ORDERED: RESP: ALBUTEROL 2.5 MG/3 ML NEB (PRN) NEB (17:00)
[2017-01-15] MEDS ORDERED: ENALAPRILAT 1.25 MG/ML VIAL IV PUSH PRN (17:00)
[2017-01-15] MEDS: FUROSEMIDE 40 MG/4 ML VIAL IV PUSH SCH (17:44)
[2017-01-15 19:01] LABS: FREE T3 0.91 PG/ML (2.18-3.98); FREE T4 1.91 NG/DL (0.76-1.46)
[2017-01-15] MEDS: INSULIN ASPART SUPPLEMENTAL SCALE SQ SCH (21:37)
[2017-01-15] MEDS: ATORVASTATIN 40 MG TAB PO SCH (21:38)
[2017-01-15] MEDS: traZODone HCL 100 MG TAB PO SCH (21:38)
[2017-01-16] VITALS (9 sets, daily range): BP systolic 113–131; BP diastolic 57–60; PULSE 65–70; RESP 19–22; TEMP 97–97.8; O2SAT 91–96
[2017-01-16] MEDS: RESP: ALBUTEROL 2.5 MG/3 ML NEB (SCH) NEB ×4 (05:24→21:33)
[2017-01-16] MEDS: LEVOTHYROXINE SODIUM 100 MCG TAB PO SCH (05:53)
[2017-01-16] MEDS: cefTRIAXone INJ 1,000 MG in SODIUM CHLORIDE 0.9% INJ 100 ML IV SCH (05:53)
[2017-01-16] MEDS: INSULIN ASPART SUPPLEMENTAL SCALE SQ SCH ×4 (06:29→21:37)
[2017-01-16 08:46] LABS: AUTOMATED NEUTROPHIL # 15.4 TH/MM3 (1.8-7.7); BASOPHIL # 0.1 TH/MM3 (0-0.2); BASOPHIL % 0.5 % (0.0-2.0); EOSINOPHIL % 0.1 % (0.0-4.0); HEMATOCRIT 38.3 % (39.0-51.0); HEMO FLAGS DIFF FINAL; LYMPH % 1.9 % (9.0-44.0); LYMPHOCYTE # 0.3 TH/MM3 (1.0-4.8); MEAN CORPUSCULAR HEMOGLOBIN 27.9 PG (27.0-34.0); MEAN CORPUSCULAR HGB CONC 32.5 % (32.0-36.0); MONO % 3.6 % (0.0-8.0); NEUT % 93.9 % (16.0-70.0); PLATELET COUNT 263 TH/MM3 (150-450); RED BLOOD COUNT 4.45 MIL/MM3 (4.50-5.90); WHITE BLOOD COUNT 16.4 TH/MM3 (4.0-11.0)
[2017-01-16] MEDS: INSULIN HUMAN NPH/R 70/30 1,000 UNITS/10 ML VIAL SQ SCH ×2 (09:12→21:36)
[2017-01-16] MEDS: AMIODARONE 200 MG TAB PO SCH ×2 (09:13→21:21)
[2017-01-16] MEDS: RIVAROXABAN 20 MG TAB PO SCH (09:13)
[2017-01-16] MEDS: DOCUSATE SODIUM 100 MG CAP PO SCH ×2 (09:13→21:22)
[2017-01-16] MEDS: FUROSEMIDE 40 MG/4 ML VIAL IV PUSH SCH ×2 (09:13→16:39)
[2017-01-16] MEDS: MULTIVITAMINS/MINERALS THERAPEUTIC TAB PO SCH (09:13)
[2017-01-16] MEDS: DILTIAZEM-CD 240 MG CAP ER PO SCH ×2 (09:13→21:21)
[2017-01-16] MEDS: PANTOPRAZOLE SOD 40 MG DELAYED RELEASE TAB PO SCH (09:13)
[2017-01-16] MEDS: DIGOXIN 0.25 MG TAB PO SCH (09:13)
[2017-01-16] MEDS: SODIUM CHLORIDE 0.9% FLUSH 5 ML FLUSH FLUSH SCH ×2 (09:14→21:22)
[2017-01-16] MEDS: TIOTROPIUM BROMIDE 18 MCG INH INH SCH (09:14)
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
[2017-01-16 13:04] LABS: ALKALINE PHOSPHATASE 97 U/L (45-117); ALT (GPT) 31 U/L (12-78); ANION GAP 6 MEQ/L (5-15); AST (GOT) 15 U/L (15-37); BICARBONATE 36.7 MEQ/L (21.0-32.0); BLOOD UREA NITROGEN 27 MG/DL (7-18); CHLORIDE 93 MEQ/L (98-107); GLOMERULAR FILTRATION RATE 71 ML/MIN (>89); POTASSIUM 4.4 MEQ/L (3.5-5.1); SODIUM (NA) 136 MEQ/L (136-145); TOTAL BILIRUBIN ADULT 0.4 MG/DL (0.2-1.0)
--- NOTE | 2017-01-16 13:33 | EKG ---
Date Performed: 01/15/2017 Time Performed: 17:43:03 PTAGE: 76 years EKG: ATRIAL FLUTTER/TACHYCARDIA WITH RAPID VENTRICULAR RESPONSE LOW QRS VOLTAGE IN EXTREMITY DANYELLE DS MODERATE T-WAVE ABNORMALITY, CONSIDER ANTERIOR ISCHEMIA ANTERIOR INJURY, AGE UNDETERMINED Since pr evious tracing, no significant change noted ABNORMAL ECG PREVIOUS TRACING : 01/15/2017 11.09 DOCTOR: Danny Coburn Interpretating Date/Time 01/16/2017 13:32:56
--- NOTE | 2017-01-16 13:33 | EKG ---
Date Performed: 01/15/2017 Time Performed: 11:09:24 PTAGE: 76 years EKG: ATRIAL FLUTTER/TACHYCARDIA WITH RAPID VENTRICULAR RESPONSE LOW QRS VOLTAGE IN EXTREMITY DANYELLE DS NONSPECIFIC T-WAVE ABNORMALITY POSSIBLE ANTERIOR INFARCT, AGE UNDETERMINED ATRIAL FIBRILLATION IS NEW SINCE PRIOR TRACING. ABNORMAL RHYTHM ECG PREVIOUS TRACING : 01/15/2017 08.29 DOCTOR: Danny Coburn Interpretating Date/Time 01/16/2017 13:32:34
[2017-01-16] MEDS ORDERED: INSULIN HUMAN NPH/R 70/30 1,000 UNITS/10 ML VIAL SQ ONE (15:30)
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
[2017-01-16] MEDS: BACITRACIN TOP OINT 15 GM TUBE TOP SCH ×2 (17:50→23:12)
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
[2017-01-16] MEDS: ATORVASTATIN 40 MG TAB PO SCH (21:20)
[2017-01-16] MEDS: traZODone HCL 100 MG TAB PO SCH (21:21)
[2017-01-17] VITALS (10 sets, daily range): BP systolic 123–151; BP diastolic 53–63; PULSE 63–85; RESP 18–20; TEMP 97.3–98.3; O2SAT 92–95
[2017-01-17] MEDS ORDERED: PILL SPLITTER OTHER PRN (00:45)
[2017-01-17] MEDS ORDERED: LORazepam 0.5 MG TAB PO ONE (00:45)
[2017-01-17] MEDS: RESP: ALBUTEROL 2.5 MG/3 ML NEB (SCH) NEB ×4 (03:45→21:40)
[2017-01-17] MEDS: LEVOTHYROXINE SODIUM 100 MCG TAB PO SCH (05:54)
[2017-01-17] MEDS: BACITRACIN TOP OINT 15 GM TUBE TOP SCH ×3 (06:00→20:36)
[2017-01-17] MEDS: cefTRIAXone INJ 1,000 MG in SODIUM CHLORIDE 0.9% INJ 100 ML IV SCH (06:02)
[2017-01-17] MEDS: INSULIN ASPART SUPPLEMENTAL SCALE SQ SCH ×4 (06:02→20:34)
[2017-01-17 08:17] LABS: HEMATOCRIT 36.4 % (39.0-51.0); MEAN CELL VOLUME 84.9 FL (80.0-100.0); MEAN CORPUSCULAR HEMOGLOBIN 28.5 PG (27.0-34.0); MEAN CORPUSCULAR HGB CONC 33.6 % (32.0-36.0); PLATELET COUNT 266 TH/MM3 (150-450); RED BLOOD COUNT 4.29 MIL/MM3 (4.50-5.90); RED CELL DISTRIBUTION WIDTH 17.7 % (11.6-17.2); REVIEW FLAG FINAL; WHITE BLOOD COUNT 12.8 TH/MM3 (4.0-11.0)
[2017-01-17] MEDS: DILTIAZEM-CD 240 MG CAP ER PO SCH ×2 (08:19→20:35)
[2017-01-17] MEDS: AMIODARONE 200 MG TAB PO SCH ×2 (08:19→20:35)
[2017-01-17] MEDS: RIVAROXABAN 20 MG TAB PO SCH (08:19)
[2017-01-17] MEDS: DOCUSATE SODIUM 100 MG CAP PO SCH ×2 (08:19→20:35)
[2017-01-17] MEDS: PANTOPRAZOLE SOD 40 MG DELAYED RELEASE TAB PO SCH (08:19)
[2017-01-17] MEDS: MULTIVITAMINS/MINERALS THERAPEUTIC TAB PO SCH (08:19)
[2017-01-17] MEDS: FUROSEMIDE 40 MG/4 ML VIAL IV PUSH SCH ×2 (08:20→17:14)
[2017-01-17] MEDS: SODIUM CHLORIDE 0.9% FLUSH 5 ML FLUSH FLUSH SCH ×2 (08:20→20:36)
[2017-01-17] MEDS: DIGOXIN 0.25 MG TAB PO SCH (08:20)
[2017-01-17] MEDS: TIOTROPIUM BROMIDE 18 MCG INH INH SCH (08:23)
[2017-01-17] MEDS: INSULIN HUMAN NPH/R 70/30 1,000 UNITS/10 ML VIAL SQ SCH ×2 (08:30→20:36)
[2017-01-17 08:43] LABS: BICARBONATE 38.6 MEQ/L (21.0-32.0); POTASSIUM 3.7 MEQ/L (3.5-5.1)
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
[2017-01-17] MEDS: LORazepam 0.5 MG TAB PO PRN (18:00)
[2017-01-17] MEDS: traZODone HCL 100 MG TAB PO SCH (20:35)
[2017-01-17] MEDS: ATORVASTATIN 40 MG TAB PO SCH (20:35)
[2017-01-18] VITALS (10 sets, daily range): BP systolic 111–137; BP diastolic 54–66; PULSE 65–85; RESP 19–20; TEMP 97.1–98.3; O2SAT 93–97
[2017-01-18] MEDS: BACITRACIN TOP OINT 15 GM TUBE TOP SCH ×3 (00:17→12:00)
[2017-01-18] MEDS ORDERED: LORazepam 0.5 MG TAB PO ONE (01:45)
[2017-01-18] MEDS: RESP: ALBUTEROL 2.5 MG/3 ML NEB (SCH) NEB ×4 (04:33→21:57)
[2017-01-18] MEDS: LEVOTHYROXINE SODIUM 100 MCG TAB PO SCH (05:29)
[2017-01-18] MEDS: cefTRIAXone INJ 1,000 MG in SODIUM CHLORIDE 0.9% INJ 100 ML IV SCH (05:29)
[2017-01-18] MEDS: INSULIN ASPART SUPPLEMENTAL SCALE SQ SCH ×4 (05:30→20:42)
[2017-01-18] MEDS: TIOTROPIUM BROMIDE 18 MCG INH INH SCH (09:00)
[2017-01-18] MEDS: DIGOXIN 0.25 MG TAB PO SCH (09:01)
[2017-01-18] MEDS: RIVAROXABAN 20 MG TAB PO SCH (09:01)
[2017-01-18] MEDS: AMIODARONE 200 MG TAB PO SCH ×2 (09:01→20:41)
[2017-01-18] MEDS: MULTIVITAMINS/MINERALS THERAPEUTIC TAB PO SCH (09:01)
[2017-01-18] MEDS: DOCUSATE SODIUM 100 MG CAP PO SCH ×2 (09:01→20:41)
[2017-01-18] MEDS: PANTOPRAZOLE SOD 40 MG DELAYED RELEASE TAB PO SCH (09:01)
[2017-01-18] MEDS: INSULIN HUMAN NPH/R 70/30 1,000 UNITS/10 ML VIAL SQ SCH ×2 (09:02→20:58)
[2017-01-18] MEDS: DILTIAZEM-CD 240 MG CAP ER PO SCH ×2 (09:02→20:41)
[2017-01-18] MEDS: FUROSEMIDE 40 MG/4 ML VIAL IV PUSH SCH ×2 (09:02→16:52)
[2017-01-18] MEDS: SODIUM CHLORIDE 0.9% FLUSH 5 ML FLUSH FLUSH SCH ×2 (13:20→20:50)
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
[2017-01-18] MEDS: LORazepam 0.5 MG TAB PO PRN (16:52)
[2017-01-18] MEDS: MORPHINE SULFATE 4 MG/ML INJ IV PUSH PRN (20:39)
[2017-01-18] MEDS: traZODone HCL 100 MG TAB PO SCH (20:41)
[2017-01-18] MEDS: ATORVASTATIN 40 MG TAB PO SCH (20:41)
[2017-01-18] MEDS ORDERED: LORazepam 2 MG/ML VIAL IV PUSH ONE (21:00)
[2017-01-19] VITALS (10 sets, daily range): BP systolic 116–143; BP diastolic 56–79; PULSE 65–68; RESP 12–22; TEMP 97.3–98.2; O2SAT 92–98
[2017-01-19] MEDS ORDERED: INSULIN HUMAN REGULAR 1,000 UNITS/10 ML VIAL SQ PRN (00:45)
[2017-01-19] MEDS ORDERED: METOPROLOL TARTRATE 25 MG TAB PO PRN (00:45)
[2017-01-19] MEDS: SODIUM CHLORID 0.9% 500 ML IV SCH ×2 (00:45→17:25)
[2017-01-19] MEDS: LACTATED RINGER'S 1000 ML IV SCH (00:45)
[2017-01-19] MEDS: RESP: ALBUTEROL 2.5 MG/3 ML NEB (SCH) NEB ×3 (03:13→16:06)
[2017-01-19] MEDS: cefTRIAXone INJ 1,000 MG in SODIUM CHLORIDE 0.9% INJ 100 ML IV SCH (05:50)
[2017-01-19] MEDS: LEVOTHYROXINE SODIUM 100 MCG TAB PO SCH (05:53)
[2017-01-19] MEDS: BACITRACIN TOP OINT 15 GM TUBE TOP SCH ×4 (05:55→18:45)
[2017-01-19] MEDS: INSULIN ASPART SUPPLEMENTAL SCALE SQ SCH ×4 (06:03→21:00)
[2017-01-19] MEDS ORDERED: FAMOTIDINE 20 MG/2 ML VIAL ONE (08:28)
[2017-01-19] MEDS ORDERED: DEXAMETHASONE SOD PHOS 4 MG/ML VIAL ONE (08:28)
[2017-01-19] MEDS ORDERED: *RESP: ALBUTEROL 2.5 MG/3 ML NEB (PRN) PERIprocedural Use ONLY NEB ONE (09:57)
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
[2017-01-19] MEDS: FUROSEMIDE 40 MG/4 ML VIAL IV PUSH SCH ×2 (11:24→18:45)
[2017-01-19] MEDS: DOCUSATE SODIUM 100 MG CAP PO SCH ×2 (11:25→21:20)
[2017-01-19] MEDS: DILTIAZEM-CD 240 MG CAP ER PO SCH ×2 (11:25→21:19)
[2017-01-19] MEDS: MULTIVITAMINS/MINERALS THERAPEUTIC TAB PO SCH (11:25)
[2017-01-19] MEDS: PANTOPRAZOLE SOD 40 MG DELAYED RELEASE TAB PO SCH (11:25)
[2017-01-19] MEDS: TIOTROPIUM BROMIDE 18 MCG INH INH SCH (11:25)
[2017-01-19] MEDS: RIVAROXABAN 20 MG TAB PO SCH (11:26)
[2017-01-19] MEDS: AMIODARONE 200 MG TAB PO SCH ×2 (11:26→21:20)
[2017-01-19] MEDS: DIGOXIN 0.25 MG TAB PO SCH (11:27)
[2017-01-19] MEDS: INSULIN HUMAN NPH/R 70/30 1,000 UNITS/10 ML VIAL SQ SCH ×2 (11:27→21:30)
[2017-01-19] MEDS: SODIUM CHLORIDE 0.9% FLUSH 5 ML FLUSH FLUSH SCH ×2 (11:34→21:20)
[2017-01-19] MEDS ORDERED: PROPOFOL 200 MG/20 ML AMP IV ONE (12:00)
[2017-01-19 12:38] LABS: PROTHROMBIN TIME - PATIENT 11.2 SEC (9.8-11.6)
[2017-01-19] MEDS ORDERED: OXYC-392 PO (12:50)
[2017-01-19 12:54] LABS: BICARBONATE 38.2 MEQ/L (21.0-32.0)
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
--- NOTE | 2017-01-19 19:26 | HHI.PR ---
Subjective Remarks 76 YOWM with COPD,facial monroy,UTI Had Epiglotic mass bx On Nasal cannula No Fever Objective Vital Signs Vital Signs Date Time Temp Pulse Resp B/P Pulse Ox O2 Delivery O2 Flow Rate FiO2 01/19/17 16:00 97.4 68 16 123/79 96 01/19/17 14:44 96 Nasal Cannula 4.00 01/19/17 12:00 97.3 65 12 131/60 98 01/19/17 10:30 98.4 63 16 138/62 92 Nasal Cannula 3 01/19/17 10:15 62 16 135/63 97 Aerosol Mask 01/19/17 10:00 66 14 139/62 97 Aerosol Mask 01/19/17 09:47 98.2 88 14 134/67 94 Simple Mask 6 01/19/17 08:00 98.2 65 18 120/58 98 01/19/17 04:00 97.9 67 20 116/56 96 01/19/17 00:20 16 01/19/17 00:00 97.3 66 22 143/70 92 01/18/17 21:00 18 01/18/17 20:35 65 01/18/17 20:00 97.7 65 20 137/64 97 I/O 01/18/17 01/18/17 01/18/17 01/19/17 01/19/17 01/19/17 07:00 15:00 23:00 07:00 15:00 23:00 Intake Total 240 ml 480 ml 240 ml 0 ml 824 ml Output Total 800 ml 2850 ml 650 ml 550 ml 2325 ml Balance -560 ml -2370 ml -410 ml -550 ml -1501 ml Intake Oral 240 ml 480 ml 240 ml 0 ml 474 ml Other 350 ml Output Urine Total 800 ml 2850 ml 650 ml 550 ml 2325 ml # Bowel Movements 0 0 0 0 0 Result Diagram: 01/17/17 0750 01/19/17 1212 Objective Remarks GENERAL: WBWN WM,NAD SKIN: Warm and dry. HEAD: Normocephalic. EYES: No scleral icterus. No injection or drainage. NECK: Supple, trachea midline. No JVD or lymphadenopathy. CARDIOVASCULAR: Regular rate and rhythm without murmurs, gallops, or rubs. RESPIRATORY: Breath sounds equal bilaterally. No accessory muscle use. GASTROINTESTINAL: Abdomen soft, non-tender, nondistended. MUSCULOSKELETAL: No cyanosis, or edema. BACK: Nontender without obvious deformity. No CVA tenderness. A/P Assessment and Plan COPD CHF UTI Epiglotic mass, s/p bx S/P facial monroy PLAN: Aerosol nebs Supplement 02 Cont Abx Check bx result Bimal Borden MD Jan 19, 2017 19:26
[2017-01-19] MEDS: LORazepam 0.5 MG TAB PO PRN (19:48)
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
[2017-01-19] MEDS: MORPHINE SULFATE 4 MG/ML INJ IV PUSH PRN (21:17)
[2017-01-19] MEDS: ATORVASTATIN 40 MG TAB PO SCH (21:17)
[2017-01-19] MEDS: traZODone HCL 100 MG TAB PO SCH (21:19)
[2017-01-20] VITALS: BP 123/84; PULSE 66; RESP 18; TEMP 97.5; O2SAT 96
[2017-01-20] MEDS: LACTATED RINGER'S 1000 ML IV SCH (00:45)
[2017-01-20] MEDS: MORPHINE SULFATE 4 MG/ML INJ IV PUSH PRN (01:49)
[2017-01-20 04:00] VITALS: BP 131/63; PULSE 64; RESP 18; TEMP 97.6; O2SAT 97
[2017-01-20] MEDS: BACITRACIN TOP OINT 15 GM TUBE TOP SCH ×3 (06:00→11:54)
[2017-01-20] MEDS: LEVOTHYROXINE SODIUM 100 MCG TAB PO SCH (06:13)
[2017-01-20] MEDS: cefTRIAXone INJ 1,000 MG in SODIUM CHLORIDE 0.9% INJ 100 ML IV SCH (06:14)
[2017-01-20] MEDS: INSULIN ASPART SUPPLEMENTAL SCALE SQ SCH ×2 (06:14→11:54)
[2017-01-20 07:34] LABS: BICARBONATE 37.2 MEQ/L (21.0-32.0); POTASSIUM 4.1 MEQ/L (3.5-5.1)
[2017-01-20 08:00] VITALS: BP 133/61; PULSE 65; RESP 16; TEMP 97.3; O2SAT 92
[2017-01-20] MEDS: PANTOPRAZOLE SOD 40 MG DELAYED RELEASE TAB PO SCH (09:10)
[2017-01-20] MEDS: FUROSEMIDE 40 MG/4 ML VIAL IV PUSH SCH (09:10)
[2017-01-20] MEDS: DIGOXIN 0.25 MG TAB PO SCH (09:10)
[2017-01-20] MEDS: LORazepam 0.5 MG TAB PO PRN (09:10)
[2017-01-20] MEDS: DOCUSATE SODIUM 100 MG CAP PO SCH (09:10)
[2017-01-20] MEDS: MULTIVITAMINS/MINERALS THERAPEUTIC TAB PO SCH (09:10)
[2017-01-20] MEDS: RIVAROXABAN 20 MG TAB PO SCH (09:10)
[2017-01-20] MEDS: DILTIAZEM-CD 240 MG CAP ER PO SCH (09:10)
[2017-01-20] MEDS: AMIODARONE 200 MG TAB PO SCH (09:10)
[2017-01-20] MEDS: INSULIN HUMAN NPH/R 70/30 1,000 UNITS/10 ML VIAL SQ SCH (09:11)
[2017-01-20] MEDS: SODIUM CHLORIDE 0.9% FLUSH 5 ML FLUSH FLUSH SCH (09:11)
[2017-01-20] MEDS: TIOTROPIUM BROMIDE 18 MCG INH INH SCH (09:11)
--- NOTE | 2017-01-20 09:48 | PD.CARD.PN ---
Subjective Subjective Remarks No complaints this morning. Feeling better. Objective Medications Current Medications Medications (Trade) Dose Ordered Sig/Melissa Route Start Time Stop Time Status Last Admin (Rocephin Inj/NS Inj) 100 ml @ 200 mls/hr Q24H IV 01/16/17 06:00 01/20/17 06:14 (Cordarone) 200 mg BID PO 01/15/17 09:00 01/20/17 09:10 (Lanoxin) 0.25 mg DAILY PO 01/15/17 09:00 01/20/17 09:10 (Cardizem Cd) 240 mg BID PO 01/15/17 09:00 01/20/17 09:10 (Theragran M Tab) 1 tab DAILY PO 01/15/17 09:00 01/20/17 09:10 (Protonix) 40 mg DAILY PO 01/15/17 09:00 01/20/17 09:10 (Xarelto) 20 mg DAILY PO 01/15/17 09:00 01/20/17 09:10 (Spiriva Inh) 18 mcg DAILY INH 01/15/17 09:00 01/20/17 09:11 (Desyrel) 200 mg HS PO 01/15/17 21:00 01/19/17 21:19 (NS Flush) 2 ml UNSCH PRN FLUSH 01/15/17 05:45 (NS Flush) 2 ml BID FLUSH 01/15/17 09:00 01/20/17 09:11 (Zofran Inj) 4 mg Q6H PRN IVP 01/15/17 05:45 01/15/17 08:24 (Dulcolax Supp) 10 mg DAILY PRN OK 01/15/17 05:45 (Tylenol) 650 mg Q6H PRN PO 01/15/17 05:45 (Roxicodone) 10 mg Q4H PRN PO 01/15/17 05:45 01/20/17 06:13 (Roxicodone) 5 mg Q4H PRN PO 01/15/17 05:45 (Lipitor) 40 mg HS PO 01/15/17 21:00 01/19/17 21:17 (Colace) 100 mg BID PO 01/15/17 09:00 01/20/17 09:10 (Synthroid) 100 mcg DAILY@06 PO 01/16/17 06:00 01/20/17 06:13 (Morphine Inj) 4 mg Q3H PRN IV PUSH 01/15/17 09:00 01/20/17 01:49 (Vasotec Inj) 1.25 mg Q6H PRN IV PUSH 01/15/17 17:00 (D50w (Vial) Inj) 25 ml UNSCH PRN IV PUSH 01/15/17 16:30 (Glucagon Inj) 1 mg UNSCH PRN OTHER 01/15/17 16:30 (Lasix Inj) 40 mg BID@09,18 IV PUSH 01/15/17 18:00 01/20/17 09:10 (NovoLIN 70/30 INJ) 25 units BID SQ 01/16/17 21:00 01/20/17 09:11 (Baciguent Oint) 1 applic Q6HR TOP 01/16/17 18:00 01/20/17 06:00 (Pill Splitter) 1 ea UNSCH PRN OTHER 01/17/17 00:45 Lorazepam 0.5 mg 0.5 mg Q12H PRN PO 01/17/17 17:30 01/22/17 17:29 01/20/17 09:10 (Lr 1000 ml Inj) 1,000 ml @ 30 mls/hr Q24H IV 01/19/17 00:45 01/19/17 00:45 Vital Signs / I&O Vital Signs Date Time Temp Pulse Resp B/P Pulse Ox O2 Delivery O2 Flow Rate FiO2 01/20/17 04:00 97.6 64 18 131/63 97 01/20/17 00:00 97.5 66 18 123/84 96 01/19/17 20:54 95 Nasal Cannula 4.00 01/19/17 20:38 65 01/19/17 20:00 97.4 65 18 131/62 94 01/19/17 16:00 97.4 68 16 123/79 96 01/19/17 14:44 96 Nasal Cannula 4.00 01/19/17 12:00 97.3 65 12 131/60 98 01/19/17 10:30 98.4 63 16 138/62 92 Nasal Cannula 3 01/19/17 10:15 62 16 135/63 97 Aerosol Mask 01/19/17 10:00 66 14 139/62 97 Aerosol Mask 01/19/17 09:47 98.2 88 14 134/67 94 Simple Mask 6 I/O 01/19/17 01/19/17 01/19/17 01/20/17 01/20/17 01/20/17 07:00 15:00 23:00 07:00 15:00 23:00 Intake Total 0 ml 824 ml 244 ml 348 ml Output Total 550 ml 2325 ml 450 ml 200 ml Balance -550 ml -1501 ml -206 ml 148 ml Intake Oral 0 ml 474 ml 240 ml 240 ml IV Total 4 ml 108 ml Other 350 ml Output Urine Total 550 ml 2325 ml 450 ml 200 ml # Bowel Movements 0 0 1 1 Physical Exam GENERAL: Well-nourished, well-developed patient. SKIN: Warm and dry. Facial monroy healing. HEAD: Normocephalic. EYES: No scleral icterus. No injection or drainage. NECK: Supple, trachea midline. No JVD or lymphadenopathy. CARDIOVASCULAR: Regular rate and irregular rhythm without murmurs, gallops, or rubs. RESPIRATORY: Breath sounds equal bilaterally. No accessory muscle use. GASTROINTESTINAL: Abdomen soft, non-tender, nondistended. EXTREMITIES: No cyanosis. 1+ dependent edema. NEUROLOGICAL: Awake, alert, and oriented x 3. Non-focal. Laboratory Laboratory Tests Test 01/19/17 01/20/17 12:12 06:12 Prothrombin Time 11.2 SEC Prothromb Time International 1.0 RATIO Ratio Sodium Level 137 MEQ/L 135 MEQ/L Potassium Level 4.0 MEQ/L 4.1 MEQ/L Chloride Level 95 MEQ/L 94 MEQ/L Carbon Dioxide Level 38.2 MEQ/L 37.2 MEQ/L Anion Gap 4 MEQ/L 4 MEQ/L Blood Urea Nitrogen 16 MG/DL 16 MG/DL Creatinine 0.68 MG/DL 0.75 MG/DL Estimat Glomerular Filtration 114 ML/MIN 102 ML/MIN Rate Random Glucose 185 MG/DL 309 MG/DL Calcium Level 8.2 MG/DL 8.1 MG/DL B-Type Natriuretic Peptide 52 PG/ML 47 PG/ML Imaging Last Impressions Chest X-Ray 01/15/17 0252 Signed Impressions: Service Date/Time: December 02:50 - CONCLUSION: 1. Cardiomegaly and findings of congestive heart failure. Phillip Wheat MD Assessment and Plan Problem List: (1) Paroxysmal atrial fibrillation Assessment and Plan: S/P ablation, on cordarone, cardizem, digoxin, xarelto. (2) Congestive heart failure Assessment and Plan: EF 55-60% with no noted valvular dysfunction on echocardiograms 09/14 and 12/16. (3) Atrial flutter with rapid ventricular response Assessment and Plan: Remains in atrial flutter with variable timing. HR controlled. On Xarelto. Assessment and Plan Per my d/w Dr. Viveros, he can be followed as an outpatient from a cardiology standpoint. If discharged, would recommend followup labs to monitor electrolytes and renal function. F/U with Dr. Viveros in 1 week. Problem Qualifiers (1) Congestive heart failure: Rox Anglin Jan 20, 2017 09:48
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
[2017-01-20 11:54] VITALS: O2SAT 95
[2017-01-20] MEDS ORDERED: POTA10CA PO (12:39)
--- NOTE | 2017-01-20 12:41 | HHI.FF ---
Face to Face Verification Diagnosis: (1) S/P ablation of atrial fibrillation (2) Paroxysmal atrial fibrillation (3) Laryngeal mass (4) Atrial flutter with rapid ventricular response (5) Thyroid function study abnormality (6) COPD (chronic obstructive pulmonary disease) Physical Therapy Order: Evaluate and Treat Occupational Therapy Order: Evaluate and Treat Home Health Nursing Order: Medical education CHF education Oxygen administration education I have seen patient Curtis Santana on 01/20/17. My clinical findings support the need for the requested home health care services because: Ltd mobility - disease progression Limited ability to care for self I certify that my clinical findings support that this patient is homebound because: Hx COPD- exertion dyspnea/weakness Unsafe to leave home unassisted Vicky Garcia MD Jan 20, 2017 12:41
[2017-01-20] MEDS ORDERED: FURO1TAB60 PO (12:43)
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
== END 2017-01-20 13:53 | disposition home health service (06) | DRG 871 ==
LOC: NEPE 02:29 → NEDA 06:05 → NEDH 10:36 → N04B 18:47
PROVIDERS: ADMIT Hospitalist; ATTEND Hospitalist
PROC: 0CBR8ZX Excision of Epiglottis, Via Natural or Artificial Opening Endoscopic, Diagnostic (ICD-10-PCS; principal; 2017-01-20)
DX: A41.9 Sepsis, unspecified organism (principal); J69.0 Pneumonitis due to inhalation of food and vomit; J96.20 Acute and chronic respiratory failure, unspecified whether with hypoxia or hypercapnia; E11.43 Type 2 diabetes mellitus with diabetic autonomic (poly)neuropathy; K31.84 Gastroparesis; I48.92 Unspecified atrial flutter; I50.9 Heart failure, unspecified; Z99.81 Dependence on supplemental oxygen; N39.0 Urinary tract infection, site not specified; J44.9 Chronic obstructive pulmonary disease, unspecified; C32.1 Malignant neoplasm of supraglottis; N50.89 Other specified disorders of the male genital organs; I10 Essential (primary) hypertension; K21.9 Gastro-esophageal reflux disease without esophagitis; K44.9 Diaphragmatic hernia without obstruction or gangrene; M19.90 Unspecified osteoarthritis, unspecified site; E03.9 Hypothyroidism, unspecified; R31.9 Hematuria, unspecified; T20.00XD Burn of unspecified degree of head, face, and neck, unspecified site, subsequent encounter; X08.8XXD Exposure to other specified smoke, fire and flames, subsequent encounter; Z51.5 Encounter for palliative care; R62.7 Adult failure to thrive; R13.13 Dysphagia, pharyngeal phase; N48.89 Other specified disorders of penis; M54.40 Lumbago with sciatica, unspecified side; G89.4 Chronic pain syndrome; Z96.612 Presence of left artificial shoulder joint; Z79.02 Long term (current) use of antithrombotics/antiplatelets; Z88.1 Allergy status to other antibiotic agents; Z91.040 Latex allergy status; Z91.048 Other nonmedicinal substance allergy status; R63.3 Feeding difficulties; M79.605 Pain in left leg; M79.604 Pain in right leg; F17.200 Nicotine dependence, unspecified, uncomplicated; F43.23 Adjustment disorder with mixed anxiety and depressed mood; E88.09 Other disorders of plasma-protein metabolism, not elsewhere classified; F40.240 Claustrophobia; I48.0 Paroxysmal atrial fibrillation
CPT/HCPCS: 36600; 71010; 80048; 80053; 80162; 81001; 82805; 82948; 83735; 83880; 84439; 84443; 84481; 85025; 85027; 85610; 87040; 87077; 87086; 87186; 88305; 88341; 93005; 94150; 94640; 94664; 96374; J0696; J1100; J1815; J1940; J2060; J2270; J2405; J2930; J3010; J7040; J7120; J7613

== ENCOUNTER 2017-01-27 02:48 | Inpatient (IN) | payer OTHER, MEDICARE ==
[2017-01-27] VITALS (21 sets, daily range): BP systolic 129–157; BP diastolic 60–73; PULSE 56–89; RESP 17–24; TEMP 98–98.3; O2SAT 90–99
[~2017-01-27] VITALS: Ht 180.3 cm; Wt 80.0 kg
[~2017-01-27 02:48] MED LIST changes: +FURO1TAB60 PO; +OXYC-392 PO; +POTA10CA PO
--- NOTE | 2017-01-27 03:30 | PD ---
HPI Chief Complaint: Psychiatric Symptoms Time Seen by Provider: 02:58 Travel History International Travel<30 days: No Contact w/Intl Traveler<30days: No Traveled to known affect area: No History of Present Illness HPI The patient is a 76 year old male who presents to the [facility] emergency department with a history of recently being discharged from the hospital after 2 admissions earlier in the month. The initial admission was related to facial monroy while smoking on oxygen requiring transfer to [facility], the second admission on January 15, 2017 was related to generalized weakness, confusion, scrotal edema. The patient was diagnosed with atrial fibrillation with RVR, congestive heart failure. The patient is chronically O2 dependent related to COPD. The patient reports that he has been depressed. According to a Hudson act that was written prior to the patient's arrival the patient had a fire arm out and was attempting to shoot himself in the abdomen. The patient's reported this to the police. She reports that he attempted to pull the trigger multiple times, however he was too weak to do it. According to the Hudson act, the patient has been depressed related to chronic pain. The patient denies the above story. He denies having a fire arm out. He does report having chronic pain. He reports that he last took pain medicine 4 hours prior to arrival. The patient reports having a diminished appetite. The patient reports having chronic shortness of breath. The patient denies any recent fevers, cough, congestion, neck pain, chest pain, abdominal pain, vomiting, diarrhea, urinary symptoms, or focal neurologic symptoms. The patient's family remember arrives at the patient's bedside and reports that he was recently diagnosed with a urinary tract infection and they picked up the antibiotics, however he has not started the medication yet. 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 Hx Anticoagulant Therapy: Yes (XARELTO) Arthritis: Yes Asthma: No Atrial Fibrillation: Yes Autoimmune Disease: No Anxiety: Yes Depression: No Heart Rhythm Problems: Yes (afib- aflutter) Cancer: No Cardiovascular Problems: Yes (ABHAY IN OCTOBER DR. WRIGHT) High Cholesterol: No Chest Pain: No Congestive Heart Failure: No COPD: Yes Cerebrovascular Accident: No Diabetes: Yes Patient Takes Glucophage: No Diminished Hearing: No Endocrine: Yes Gastrointestinal Disorders: Yes (GASTROPARESIS) GERD: Yes Genitourinary: No Hepatitis: No Hiatal Hernia: Yes Hypertension: Yes Immune Disorder: No Implanted Vascular Access Dvce: No Musculoskeletal: Yes Neurologic: No Psychiatric: No Reproductive: No Respiratory: Yes (copd) Sleep Apnea: No Thyroid Disease: Yes Ulcer: No Tetanus Vaccination: > 5 Years Influenza Vaccination: Yes Past Surgical History Narrative Surgical The patient's past surgical history is significant for cholecystectomy, left shoulder repair with metal plate in place, right leg surgery. Abdominal Surgery: Yes (gallbladder removal) AICD: No Body Medical Devices: left shoulder metal plate with approx. 16 screws Cardiac Surgery: Yes (Ablation x2, cath) Cholecystectomy: Yes Ear Surgery: No Endocrine Surgery: No Eye Surgery: Yes (bilateral cataract surgery) Genitourinary Surgery: No Gynecologic Surgery: No Joint Replacement: Yes (LEFT SHOULDER METAL CLAW, 16 SCREWS) Neurologic Surgery: Yes (R leg) Oral Surgery: Yes (tonsilectomy) Pacemaker: No Thoracic Surgery: No Tonsillectomy: Yes Other Surgery: Yes Social History Alcohol Use: No Tobacco Use: Yes Substance Use: No Allergies-Medications (Allergen,Severity, Reaction): Coded Allergies: Flagyl (Verified Allergy, Severe, 01/27/17) Floxcin (Verified Allergy, Severe, 01/27/17) Latex (Verified Allergy, Severe, 01/27/17) Adhesives (Verified Allergy, Mild, 01/27/17) Reported Meds & Prescriptions Reported Meds & Active Scripts Active Lasix (Furosemide) 40 Mg Tab 40 Mg PO DAILY Potassium Chloride ER (Potassium Chloride) 10 Meq Cap 10 Meq PO EVERY OTHER DAY Nystatin Topical 100,000 unit/gm Oint 1 Applic TOPICAL Q12HR 7 Days Synthroid (Levothyroxine Sodium) 100 Mcg Tab 100 Mcg PO DAILY@06 Cardizem CD 24 HR (Diltiazem CD 24 HR) 240 Mg Caper 240 Mg PO BID Digoxin 0.25 Mg Tab 0.25 Mg PO DAILY Bacitracin Topical 500 Unit/Gm Oint 1 Applic TOPICAL Q6HR Amiodarone (Amiodarone HCl) 200 Mg Tab 200 Mg PO BID Zantac (Ranitidine HCl) 150 Mg Tab 150 Mg PO BID Protonix (Pantoprazole Sodium) 40 Mg Tab 40 Mg PO DAILY Atorvastatin (Atorvastatin Calcium) 40 Mg Tab 40 Mg PO HS Spiriva Handihaler (Tiotropium Inh) 18 Mcg Cap 18 Mcg INH DAILY 1 capsule = 18 mcg Xarelto (Rivaroxaban) 20 Mg Tab 20 Mg PO DAILY Reported Ondansetron (Ondansetron HCl) 8 Mg Tab 8 Mg PO Q8HR PRN Morphine IR (Morphine Sulfate) 30 Mg Tab 60 Mg PO BID PRN Senna (Sennosides) 8.8 Mg/5 Ml Syp 15 PO BID Trazodone (Trazodone HCl) 100 Mg Tab 200 Mg PO HS Fentanyl Patch 72 HR (Fentanyl) 100 Mcg/Hr Patch 100 Mcg T-DERMAL EVERY 48 HOURS Remove old patch when new one placed. Multivitamin Adults (Multiple Vitamins W/ Minerals) 1 Tab 1 Tab PO DAILY Novolin 70/30 Inj (Insulin Human Isoph/Insulin Regular) 1,000 Units/10 Ml Inj 25 SQ BID Docusate Sodium 100 Mg Cap 100 Mg PO BID Proair Respiclick Inh (Albuterol Sulfate) 90 Mcg/Act Aerp 2 Puff INH Q4HR PRN Review of Systems General / Constitutional: No: Fever Eyes: No: Visual changes HENT: No: Headaches Cardiovascular: Positive: Dyspnea on exertion, No: Chest Pain or Discomfort Respiratory: Positive: Cough, Shortness of Breath, Wheezing Gastrointestinal: Positive: Loss of Appetite, No: Nausea, Vomiting, Diarrhea, Abdominal Pain Genitourinary: No: Dysuria Musculoskeletal: No: Pain Skin: No Rash Neurologic: Positive: Weakness (generalized weakness), No: Focal Abnormalities , Change in Mentation, Slurred Speech, Sensory Disturbance Psychiatric: Positive: Depression, Suicidal Ideations, Mood Disorder, No: Anxiety, Homicidal Ideation Endocrine: No: Polydipsia Hematologic/Lymphatic: No: Easy Bruising Physical Exam Narrative General: The patient is a well-developed well-nourished male, who appears dyspneic, with some accessory muscle use, otherwise in no acute distress, on a simple mask saturating 94-95%. Head and Neck exam: Head is normocephalic atraumatic. Eyes: EOMI, pupils are equal round and reactive to light. Nose: Midline septum with crusting noted around bilateral nares related to healing from his recent facial monroy. The patient also has a pink coloration to the skin surrounding the nose consistent with his facial monroy and the healing process. Mouth: Dentition unremarkable. Moist mucus membranes. Posterior oropharynx is not erythematous. No tonsillar hypertrophy. Uvula midline. Airway patent. Neck: No palpable lymphadenopathy. No nuchal rigidity. No thyromegaly. Cardiovascular: Regular rate and rhythm without murmurs, gallops, or rubs. No pulse deficit to the extremities and simultaneous auscultation and palpation of his radial artery. Lungs: Clear to auscultation bilaterally. No wheezes, rhonchi, or rales. Abdomen: Soft, without tenderness to palpation in all 4 quadrants of the abdomen. No guarding, rebound, or rigidity. Normal bowel sounds are audible. Extremities: No clubbing, cyanosis, or edema. 2+ pulses in all 4 extremities. Back: No spinous process tenderness to palpation. No costovertebral angle tenderness to palpation. Neurologic Exam: Cranial nerves 2-12 were intact on exam. Strength is 5/5 in all 4 extremities. No sensory deficits noted. No dysdiadochokinesis. Good finger to nose and Heel to coleman bilaterally. Skin Exam: No rash noted. Intact skin that is warm and dry. Data Data Last Documented VS Vital Signs Date Time Temp Pulse Resp B/P Pulse Ox O2 Delivery O2 Flow Rate FiO2 01/27/17 03:56 90 Simple Mask 10.00 01/27/17 03:18 98.3 75 24 136/64 Orders Electrocardiogram (01/27/17 03:18) Complete Blood Count With Diff (01/27/17 03:18) Comprehensive Metabolic Panel (01/27/17 03:18) B-Type Natriuretic Peptide (01/27/17 03:18) Prothrombin Time / Inr (Pt) (01/27/17 03:18) Act Partial Throm Time (Ptt) (01/27/17 03:18) Urinalysis - C+S If Indicated (01/27/17 03:18) Chest, Single Ap (01/27/17 03:18) Iv Access Insert/Monitor (01/27/17 03:18) Ecg Monitoring (01/27/17 03:18) Oxygen Administration (01/27/17 03:18) Oximetry (01/27/17 03:18) Drug Screen, Random Urine (01/27/17 03:18) Alcohol (Ethanol) (01/27/17 03:18) Salicylates (Aspirin) (01/27/17 03:18) Tylenol (Acetaminophen) (01/27/17 03:18) Albuterol-Ipratropium Neb (Duoneb Neb) (01/27/17 03:30) Blood Culture (01/27/17 04:51) Ceftriaxone Inj (Rocephin Inj) (01/27/17 05:00) Azithromycin Inj (Zithromax Inj) (01/27/17 05:00) Sodium Chlor 0.9% 1000 Ml Inj (Ns 1000 M (01/27/17 05:00) Lactic Acid Sepsis Protocol (01/27/17 05:32) Admit Order (Ed Use Only) (01/27/17 05:32) Labs Laboratory Tests Test 01/27/17 01/27/17 03:20 04:26 White Blood Count 12.8 TH/MM3 Red Blood Count 4.39 MIL/MM3 Hemoglobin 12.6 GM/DL Hematocrit 37.3 % Mean Corpuscular Volume 85.0 FL Mean Corpuscular Hemoglobin 28.6 PG Mean Corpuscular Hemoglobin 33.7 % Concent Red Cell Distribution Width 17.5 % Platelet Count 292 TH/MM3 Mean Platelet Volume 8.1 FL Neutrophils (%) (Auto) 87.0 % Lymphocytes (%) (Auto) 4.0 % Monocytes (%) (Auto) 8.5 % Eosinophils (%) (Auto) 0.0 % Basophils (%) (Auto) 0.5 % Neutrophils # (Auto) 11.2 TH/MM3 Lymphocytes # (Auto) 0.5 TH/MM3 Monocytes # (Auto) 1.1 TH/MM3 Eosinophils # (Auto) 0.0 TH/MM3 Basophils # (Auto) 0.1 TH/MM3 CBC Comment DIFF FINAL Differential Comment Prothrombin Time 12.8 SEC Prothromb Time International 1.2 RATIO Ratio Activated Partial 28.0 SEC Thromboplast Time Sodium Level 137 MEQ/L Potassium Level 4.3 MEQ/L Chloride Level 91 MEQ/L Carbon Dioxide Level 41.4 MEQ/L Anion Gap 5 MEQ/L Blood Urea Nitrogen 33 MG/DL Creatinine 0.90 MG/DL Estimat Glomerular Filtration 82 ML/MIN Rate Random Glucose 358 MG/DL Calcium Level 8.8 MG/DL Total Bilirubin 0.6 MG/DL Aspartate Amino Transf 16 U/L (AST/SGOT) Alanine Aminotransferase 66 U/L (ALT/SGPT) Alkaline Phosphatase 96 U/L B-Type Natriuretic Peptide 60 PG/ML Total Protein 6.5 GM/DL Albumin 2.6 GM/DL Salicylates Level LESS THAN 1.7 MG/DL Acetaminophen Level LESS THAN 2.0 MCG/ML Ethyl Alcohol Level 4 MG/DL Urine Color YELLOW Urine Turbidity CLEAR Urine pH 6.0 Urine Specific Kirkman 1.016 Urine Protein TRACE mg/dL Urine Glucose (UA) 1000 mg/dL Urine Ketones NEG mg/dL Urine Occult Blood MOD Urine Nitrite NEG Urine Bilirubin NEG Urine Urobilinogen LESS THAN 2.0 MG/DL Urine Leukocyte Esterase NEG Urine RBC 80 /hpf Urine WBC 4 /hpf Urine Squamous Epithelial 2 /hpf Cells Urine Transitional Epithelial <1 /hpf Cells Urine Renal Epithelial Cells <1 /hpf Urine Hyaline Casts 1 /lpf Urine Mucus FEW /lpf Microscopic Urinalysis Comment CULT NOT INDICATED Urine Opiates Screen POS Urine Barbiturates Screen NEG Urine Amphetamines Screen NEG Urine Benzodiazepines Screen POS Urine Cocaine Screen NEG Urine Cannabinoids Screen NEG MDM Medical Decision Making Medical Screen Exam Complete: Yes Emergency Medical Condition: Yes Medical Record Reviewed: Yes Interpretation(s) Last Impressions Chest X-Ray 01/27/17317 Signed Impressions: Service Date/Time: Friday, January 27, 2017 03:32 - CONCLUSION: 1. Patchy air space disease has developed in the right upper lobe since January 15. Differential diagnosis includes pneumonia and aspiration. There is persistent basilar airspace disease and small effusions. Giorgio Maldonado MD Differential Diagnosis COPD exacerbation, versus congestive heart failure, versus pneumonia, versus bronchitis Narrative Course During the course of the patients emergency department visit, the patients history, examination, and differential diagnosis were reviewed with the patient. The patient had IV access obtained and blood work sent for analysis. The patient states on a school lunch monitor with oximetry and blood pressure monitoring. An EKG was done on arrival. The patient's EKG shows a sinus rhythm with a borderline first-degree AV block, the patient has a wavering baseline due to tremulousness on examination, no acute ST segment elevation is noted. The patient's Hudson act was reviewed. The patient is aware that he will be admitted to the hospital for evaluation and treatment of depression and to be seen by a psychiatrist in consultation. The patient was provided a DuoNeb 1. After the patient's chest x-ray revealed evidence of a new infiltrate, the patient was given Rocephin 1 g IV, azithromycin 500 mg IV. The patient was given a normal saline 1 L IV fluid bolus after BNP was found to be within normal limits. The patient was noted to be hyperglycemic the patient was given subcutaneous insulin 12 units of regular times one. The patients laboratory studies were reviewed and remarkable for a CBC that shows a white count of 12.8, hemoglobin 12.6, platelets 292 with 87 neutrophils , monocytes 4, monocytes 8.5, CMP is remarkable for chloride of 91, CO2 41.4, BUN 33, glucose 358, BNP 60, albumin 2.6, PT 12.8, INR 1.2, PTT 28, urine drug screen is positive for opiates, benzodiazepines, salicylate less than 1.7, acetaminophen less than 2, alcohol four, urinalysis shows 1000 glucose, moderate occult blood, 80 rbc's. Radiology studies were reviewed and remarkable for a chest x-ray that shows a patchy airspace disease that has developed in the right upper lobe since January 15. Differential diagnosis includes pneumonia versus aspiration. There is persistent bibasilar airspace disease and small effusions. The patient will be admitted to the medical service for evaluation and treatment of pneumonia. The patient will have a sitter at the bedside given his Hudson act. A psychiatric consultation will be placed. The patients results were discussed with the patient, including the plan of care. I explained that further testing and/ or monitoring is indicated based on the patients history, examination, and/ or laboratory findings. Therefore, I recommended admission for additional evaluation. The patient expressed understanding and was agreeable with this plan. The patient was admitted to the hospital in guarded condition and sent to a bed under the care of of the [facility]. Sepsis Criteria SIRS Criteria (2 or more): RR > 20 or PaCO2 < 32, WBC > 98427, < 4000 or > 10 % bands Criteria Outcome: Meets SIRS criteria Physician Communication Physician Communication The patient's case was discussed with Dr. Patel who did agree to admit the patient for further evaluation and treatment at this time. Diagnosis Primary Impression: Pneumonia Qualified Code: J18.1 - Pneumonia of right middle lobe due to infectious organism Additional Impression: COPD exacerbation Admitting Information Admitting Physician Requests: Admit Radha Parker MD Jan 27, 2017 03:30
[2017-01-27] MEDS: RESP: ALBUTEROL 2.5 MG/IPRATROPIUM 0.5 MG NEB (SCH) INH ×5 (03:48→20:12)
[2017-01-27 03:53] LABS: AUTOMATED NEUTROPHIL # 11.2 TH/MM3 (1.8-7.7); BASOPHIL # 0.1 TH/MM3 (0-0.2); BASOPHIL % 0.5 % (0.0-2.0); HEMATOCRIT 37.3 % (39.0-51.0); HEMO FLAGS DIFF FINAL; LYMPHOCYTE # 0.5 TH/MM3 (1.0-4.8); MEAN CORPUSCULAR HEMOGLOBIN 28.6 PG (27.0-34.0); MEAN CORPUSCULAR HGB CONC 33.7 % (32.0-36.0); MONO % 8.5 % (0.0-8.0); PLATELET COUNT 292 TH/MM3 (150-450); RED BLOOD COUNT 4.39 MIL/MM3 (4.50-5.90); RED CELL DISTRIBUTION WIDTH 17.5 % (11.6-17.2); WHITE BLOOD COUNT 12.8 TH/MM3 (4.0-11.0)
[2017-01-27 04:02] LABS: INTERNATIONAL NORMALIZED RATIO 1.2 RATIO; PROTHROMBIN TIME - PATIENT 12.8 SEC (9.8-11.6)
--- NOTE | 2017-01-27 04:12 | RADRPT ---
EXAM DATE/TIME: 01/27/2017 03:32 [facility] COMPARISON: CT PULMONARY ANGIOGRAM, December 13, 2016, 18:11. INDICATIONS : Shortness of breath. MEDICAL HISTORY : Chronic obstructive pulmonary disease. SURGICAL HISTORY : Left shoulder surgery. ENCOUNTER: Initial ACUITY: 1 day PAIN SCORE: 4/10 LOCATION: Bilateral chest FINDINGS: There is bilateral airspace consolidation increased in the right upper lobe since January 15. Small effusions. Heart size upper limits normal. No pneumothorax. CONCLUSION: 1. Patchy air space disease has developed in the right upper lobe since January 15. Differential margoth gnosis includes pneumonia and aspiration. There is persistent basilar airspace disease and small effu sions. Giorgio Maldonado MD on January 27, 2017 at 4:09 Board Certified Radiologist. This report was verified electronically.
[2017-01-27 04:24] LABS: ALT (GPT) 66 U/L (12-78); ANION GAP 5 MEQ/L (5-15); AST (GOT) 16 U/L (15-37); BICARBONATE 41.4 MEQ/L (21.0-32.0); BLOOD UREA NITROGEN 33 MG/DL (7-18); CHLORIDE 91 MEQ/L (98-107); GLOMERULAR FILTRATION RATE 82 ML/MIN (>89); POTASSIUM 4.3 MEQ/L (3.5-5.1); SODIUM (NA) 137 MEQ/L (136-145)
[2017-01-27 04:28] LABS: ACETAMINOPHEN LESS THAN 2.0 MCG/ML (10.0-30.0); ALKALINE PHOSPHATASE 96 U/L (45-117); TOTAL BILIRUBIN ADULT 0.6 MG/DL (0.2-1.0)
[2017-01-27 04:46] LABS: BLOOD, URINE MOD (NEG); COMMENT (UR) CULT NOT INDICATED; CULTURE IF INDICATED CULT NOT INDICATED; GLUCOSE,URINE 1000 mg/dL (NEG); HYALINE CAST, URINE 1 /lpf (RARE); KETONE, URINE NEG (NEG); MUCUS URINE FEW /lpf (OCC); NITRITE,URINE NEG (NEG); RENAL EPITHELIAL CELLS <1 /hpf; SQUAMOUS EPITHELIAL CELL URINE 2 /hpf (0-5); TRANSITIONAL EPI CELLS, URINE <1 /hpf; URINE COLOR YELLOW (YELLW/STRAW)
[2017-01-27 04:51] LABS: AMPHETAMINE, URINE NEG (NEG); BARBITURATES, URINE NEG (NEG); COCAINE, URINE NEG (NEG)
[2017-01-27] MEDS ORDERED: AZITHROMYCIN INJ 500 MG in SODIUM CHLOR 0.9% 250 ML INJ 250 ML IV ONE (05:00)
[2017-01-27] MEDS ORDERED: cefTRIAXone INJ 1,000 MG in SODIUM CHLORIDE 0.9% INJ 100 ML IV ONE (05:00)
[2017-01-27] MEDS ORDERED: SODIUM CHLOR 0.9% 1000 ML INJ 1,000 ML IV ONE (05:00)
[2017-01-27] MEDS: SODIUM CHLOR 0.9% 1000 ML INJ 1,000 ML IV SCH ×2 (05:53→15:53)
[2017-01-27] MEDS ORDERED: GLUCAGON 1 MG/ML VIAL OTHER PRN (06:00)
[2017-01-27] MEDS ORDERED: methylPREDNISolone SOD SUCC 40 MG/1 ML VIAL IV SCH (06:00)
[2017-01-27] MEDS ORDERED: SENNOSIDES 8.6 MG TAB PO PRN (06:00)
[2017-01-27] MEDS ORDERED: SODIUM CHLORIDE 0.9% FLUSH 5 ML FLUSH FLUSH PRN (06:00)
[2017-01-27] MEDS ORDERED: MAGNESIUM HYDROXIDE SUSP 30 ML CUP PO PRN (06:00)
[2017-01-27] MEDS ORDERED: RESP: ALBUTEROL 2.5 MG/IPRATROPIUM 0.5 MG NEB (PRN) INH (06:00)
[2017-01-27] MEDS ORDERED: MORPHINE SULFATE 30 MG TAB PO PRN (06:00)
[2017-01-27] MEDS ORDERED: BISACODYL 10 MG SUPP PR PRN (06:00)
[2017-01-27] MEDS ORDERED: HEPARIN SODIUM - SQ 10,000 UNITS/ML VIAL SQ SCH (06:00)
[2017-01-27] MEDS ORDERED: ONDANSETRON HCL 4 MG/2 ML VIAL IVP PRN (06:00)
[2017-01-27] MEDS ORDERED: DEXTROSE 50% IN WATER 50 ML VIAL(D50) IV PUSH PRN (06:00)
[2017-01-27] MEDS ORDERED: NALOXONE HCL 0.4 MG/ML AMP IV PRN (06:00)
[2017-01-27] MEDS ORDERED: ACETAMINOPHEN 325 MG TAB PO PRN ×2 (06:00)
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
[2017-01-27] MEDS ORDERED: LEVOTHYROXINE SODIUM 100 MCG TAB PO SCH (06:15)
[2017-01-27 06:19] LABS: BLOOD GAS BASE EXCESS 17.2 mmol/L (-2-2); BLOOD GAS CARBOXYHEMOGLOBIN 1.4 % (0-4); BLOOD GAS HCO3 43 mmol/L (22-26); BLOOD GAS METHEMOGLOBIN 1.6 % (0-2); BLOOD GAS O2 HGB SATURATION 66 % (90-100); BLOOD GAS OXYGEN CONTENT 11.3 Vol % (12.0-20.0); BLOOD GAS PCO2 78 mmHg (38-42); BLOOD GAS PO2 38 mmHG (61-120); BLOOD GAS TOTAL HGB 12.2 G/DL (12.0-16.0); CRITICAL VALUE YES; TEMP CORR TO 98.6
[2017-01-27 06:20] LABS: DRAW SITE RT BRACHIAL; LITER FLOW 10 L/M; NUMBER OF ARTERIAL PUNCTURES 2; OXYGEN DEVICE SM; STAT YES
[2017-01-27] MEDS: PIPERACIL-TAZO 4.5 GM PREMIX 100 ML IV SCH ×2 (07:29→17:55)
[2017-01-27] MEDS: INSULIN ASPART SUPPLEMENTAL SCALE SQ SCH ×3 (07:42→21:57)
[2017-01-27] MEDS: SODIUM CHLORIDE 0.9% FLUSH 5 ML FLUSH FLUSH SCH ×2 (07:43→21:00)
[2017-01-27] MEDS ORDERED: fentaNYL 75 MCG/HR PATCH TD SCH (08:00)
[2017-01-27] MEDS ORDERED: INSULIN HUMAN NPH/R 70/30 1,000 UNITS/10 ML VIAL SQ SCH (08:00)
[2017-01-27] MEDS ORDERED: REMOVE OLD FENTANYL PATCH TD SCH (08:00)
[2017-01-27] MEDS ORDERED: fentaNYL 100 MCG/HR PATCH T-DERMAL SCH (08:00)
[2017-01-27] MEDS ORDERED: REMOVE OLD FENTANYL PATCH T-DERMAL SCH (08:00)
[2017-01-27 08:05] LABS: BLOOD GAS BASE EXCESS 14.9 mmol/L (-2-2); BLOOD GAS CARBOXYHEMOGLOBIN 2.8 % (0-4); BLOOD GAS HCO3 41 mmol/L (22-26); BLOOD GAS METHEMOGLOBIN 1.7 % (0-2); BLOOD GAS O2 HGB SATURATION 92 % (90-100); BLOOD GAS OXYGEN CONTENT 15.1 Vol % (12.0-20.0); BLOOD GAS PCO2 72 mmHg (38-42); BLOOD GAS PO2 82 mmHG (61-120); BLOOD GAS TOTAL HGB 11.6 G/DL (12.0-16.0); TEMP CORR TO 98.6
[2017-01-27 08:06] LABS: CRITICAL VALUE YES; DRAW SITE RT RADIAL; FIO2 50 %; NUMBER OF ARTERIAL PUNCTURES 1; OXYGEN DEVICE BIPAP; STAT YES; ULNAR PULSE PRESENT; VENT SETTINGS IPAP12/EPAP5
[2017-01-27] MEDS ORDERED: TIOTROPIUM BROMIDE 18 MCG INH INH SCH (09:00)
[2017-01-27] MEDS: NYSTATIN 100,000 U/GM OINT 15 GM TUBE TOPICAL SCH ×2 (09:00→21:00)
[2017-01-27] MEDS: LEVOTHYROXINE SODIUM 200 MCG TAB PO SCH (10:26)
[2017-01-27] MEDS: LEVOTHYROXINE SODIUM 25 MCG TAB PO SCH (10:27)
[2017-01-27] MEDS: INSULIN DETEMIR 100 UNITS/ML VIAL SQ SCH ×2 (10:27→21:56)
[2017-01-27] MEDS: FUROSEMIDE 40 MG TAB PO SCH (10:27)
[2017-01-27] MEDS: AMIODARONE 200 MG TAB PO SCH ×2 (10:27→21:55)
[2017-01-27] MEDS: POLYETHYLENE GLYCOL 17 GM PKG PO SCH (10:28)
[2017-01-27] MEDS: DIGOXIN 0.25 MG TAB PO SCH (10:28)
[2017-01-27] MEDS: DILTIAZEM-CD 240 MG CAP ER PO SCH ×2 (10:28→21:54)
[2017-01-27] MEDS: DOCUSATE SODIUM 100 MG CAP PO SCH ×2 (10:28→21:54)
[2017-01-27] MEDS: RIVAROXABAN 20 MG TAB PO SCH (10:28)
[2017-01-27] MEDS: PANTOPRAZOLE SOD 40 MG DELAYED RELEASE TAB PO SCH (10:30)
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
[2017-01-27] MEDS: methylPREDNISolone SOD SUCC 40 MG/1 ML VIAL IV SCH ×2 (15:12→21:55)
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
[2017-01-27] MEDS: VENLAFAXINE HCL XR 37.5 MG CAP PO SCH (17:55)
[2017-01-27] MEDS: SENNOSIDES 8.6 MG TAB PO SCH (17:56)
[2017-01-27] MEDS: MORPHINE SULFATE 30 MG TAB PO PRN (17:59)
[2017-01-27] MEDS ORDERED: DO NOT ADM ANY ANTICOAGULANT DRUGS XX PRN (18:45)
[2017-01-27] MEDS ORDERED: oxyCODONE/ACETAMINOPHEN 5 MG/325 MG TAB PO PRN (19:30)
[2017-01-27] MEDS ORDERED: TAMSULOSIN HCL 0.4 MG CAP PO SCH (21:00)
[2017-01-27] MEDS ORDERED: traZODone HCL 100 MG TAB PO SCH (21:00)
[2017-01-28] VITALS (21 sets, daily range): BP systolic 124–145; BP diastolic 59–78; PULSE 51–96; RESP 13–18; TEMP 97.7–98.3; O2SAT 92–100
[2017-01-28] MEDS: PIPERACIL-TAZO 4.5 GM PREMIX 100 ML IV SCH ×3 (00:20→12:37)
[2017-01-28] MEDS: LEVOTHYROXINE SODIUM 200 MCG TAB PO SCH (05:26)
[2017-01-28] MEDS: methylPREDNISolone SOD SUCC 40 MG/1 ML VIAL IV SCH ×2 (05:26→14:03)
[2017-01-28] MEDS: SENNOSIDES 8.6 MG TAB PO SCH (05:27)
[2017-01-28] MEDS: LEVOTHYROXINE SODIUM 25 MCG TAB PO SCH (05:27)
[2017-01-28] MEDS ORDERED: LEVOTHYROXINE SODIUM 100 MCG TAB PO SCH (06:00)
[2017-01-28] MEDS: INSULIN ASPART SUPPLEMENTAL SCALE SQ SCH ×3 (06:20→17:06)
--- NOTE | 2017-01-28 07:04 | HHI.PR ---
Subjective Remarks ENT Consult dictated. Objective Vital Signs Date Time Temp Pulse Resp B/P Pulse Ox O2 Delivery O2 Flow Rate FiO2 01/28/17 04:03 97 40 01/28/17 04:03 97 BiPAP 40 01/28/17 03:55 97.7 69 145/78 96 01/28/17 03:00 55 01/27/17 23:00 58 141/68 97 01/27/17 23:00 58 01/27/17 20:12 92 40 01/27/17 19:00 70 01/27/17 19:00 98.2 71 157/73 94 01/27/17 18:00 61 01/27/17 17:00 68 01/27/17 16:00 59 01/27/17 15:34 94 45 01/27/17 15:00 56 01/27/17 15:00 98.0 89 18 137/65 98 01/27/17 13:00 97 50 01/27/17 12:29 64 20 134/62 99 BiPAP 01/27/17 10:40 65 17 147/64 95 BiPAP 50 01/27/17 08:46 18 01/27/17 07:56 95 50 I/O 01/27/17 01/27/17 01/27/17 01/28/17 01/28/17 01/28/17 07:00 15:00 23:00 07:00 15:00 23:00 Intake Total 1560 ml 480 ml Output Total 100 ml 1200 ml 650 ml Balance -100 ml 360 ml -170 ml Intake Oral 480 ml 480 ml IV Total 1080 ml Output Urine Total 100 ml 1200 ml 650 ml # Voids 1 # Bowel Movements 0 Result Diagram: 01/27/1731901/27/17 0320 Giorgio Gaming MD Jan 28, 2017 07:04
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
[2017-01-28] MEDS: RESP: ALBUTEROL 2.5 MG/IPRATROPIUM 0.5 MG NEB (SCH) INH ×3 (07:53→15:21)
[2017-01-28] MEDS: DIGOXIN 0.25 MG TAB PO SCH (09:00)
[2017-01-28] MEDS: SODIUM CHLORIDE 0.9% FLUSH 5 ML FLUSH FLUSH SCH (09:33)
[2017-01-28] MEDS: PANTOPRAZOLE SOD 40 MG DELAYED RELEASE TAB PO SCH (09:34)
[2017-01-28] MEDS: INSULIN DETEMIR 100 UNITS/ML VIAL SQ SCH (09:34)
[2017-01-28] MEDS: VENLAFAXINE HCL XR 37.5 MG CAP PO SCH (09:34)
[2017-01-28] MEDS: FUROSEMIDE 40 MG TAB PO SCH (09:34)
[2017-01-28] MEDS: DILTIAZEM-CD 240 MG CAP ER PO SCH (09:35)
[2017-01-28] MEDS: DOCUSATE SODIUM 100 MG CAP PO SCH (09:35)
[2017-01-28] MEDS: RIVAROXABAN 20 MG TAB PO SCH (09:35)
[2017-01-28] MEDS: POLYETHYLENE GLYCOL 17 GM PKG PO SCH (09:36)
[2017-01-28] MEDS: AMIODARONE 200 MG TAB PO SCH (09:36)
--- NOTE | 2017-01-28 11:45 | EKG ---
Date Performed: 01/27/2017 Time Performed: 02:57:29 PTAGE: 76 years EKG: Sinus rhythm WITH FIRST DEGREE AV BLOCK ST DEVIATION AND MODERATE T-WAVE ABNORMALITY, CONSIDER ANTERIOR ISCHEMIA ABNORMAL ECG PREVIOUS TRACING : 01/15/2017 17.43 DOCTOR: Adriel Mora Interpretating Date/Time 01/28/2017 11:44:26
[2017-01-28] MEDS ORDERED: BACITRACIN TOP OINT 15 GM TUBE TOP SCH (12:00)
[2017-01-28] MEDS: MORPHINE SULFATE 30 MG TAB PO PRN (12:36)
[2017-01-28] MEDS: NYSTATIN 100,000 U/GM OINT 15 GM TUBE TOPICAL SCH (12:45)
[2017-01-28] MEDS ORDERED: clonazePAM 0.5 MG TAB PO SCH (13:15)
--- NOTE | 2017-01-28 13:36 | HHI.PYPN ---
Subjective Remarks The patient was seen today for psychiatric reevaluation in the medical floor, patient is still presenting some difficulties breathing and expressing himself, but definitely better than yesterday. He reports improved mood, he is requesting to be discharged back home, he says that he feels energetic, reports good sleep, good appetite, good level of energy, and motivation to continue medical treatment and recommendations in outpatient basis. However, when patient was confronted about recent suicidal gesture, he remained silent, labile and vulnerable. At this moment he denies suicidal ideation, homicidal ideation, visual and auditory hallucinations. He is oriented 3, compliant with medications. He does report episodic anxiety attacks, a sense of claustrophobia, losing control of himself and becoming very afraid and scared, with increased tachycardia, shortness of breath and sweating. His clarifies that these anxiety Attacks are happening more often in his life, especially in the last month since he has been medically unstable. I had the opportunity to meet with his and , radiation oncologist, in order to to plan what is the best moment to disclose to the patient his cancer status, prognosis and discussed treatment. We came with agreement that at this moment the patient is too fragile and vulnerable and will me inappropriate since patient tried to commit suicide just 2 days ago, so will wait until the patient is more mentally stable to meet with patient and family to discuss this topic. Review of Systems Constitutional: DENIES: Diaphoretic episodes, Fatigue, Fever, Weight gain, Weight loss, Chills, Dizziness, Change in appetite, Night Sweats Endocrine: DENIES: Heat/cold intolerance, Polydipsia, Polyuria, Polyphagia Eyes: DENIES: Blurred vision, Diplopia, Eye inflammation, Eye pain, Vision loss , Photosensitivity, Double Vision Ears, nose, mouth, throat: DENIES: Tinnitus, Hearing loss, Vertigo, Nasal discharge, Oral lesions, Throat pain, Hoarseness, Ear Pain, Running Nose, Epistaxis, Sinus Pain, Toothache, Odynophagia Respiratory: COMPLAINS OF: Cough, Shortness of breath Gastrointestinal: DENIES: Abdominal pain, Black stools, Bloody stools, Constipation, Diarrhea, Nausea, Vomiting, Difficulty Swallowing, Anorexia Genitourinary: DENIES: Sexual dysfunction, Urinary frequency, Urinary incontinence, Urgency, Hematuria, Dysuria, Nocturia, Penile Discharge, Testicular Pain, Testicular Swelling Musculoskeletal: DENIES: Joint pain, Muscle aches, Stiffness, Joint Swelling, Back pain, Neck pain Integumentary: DENIES: Abnormal pigmentation, Nail changes, Pruritus, Rash Hematologic/lymphatic: DENIES: Bruising, Lymphadenopathy Immunologic/allergic: DENIES: Eczema, Urticaria Neurologic: DENIES: Abnormal gait, Headache, Localized weakness, Paresthesias, Seizures, Speech Problems, Tremor, Poor Balance Psychiatric: COMPLAINS OF: Anxiety, Mood changes Objective Alert: Yes Cadet: Person, Place, Situation Mood: Calm Affect: Restricted Memory Intact: Immediate, Recent, Remote Hallucinations: Other (none) Delusions: No (none) Delusion Type: Other (none) Suicidal: Ideation (he denies) Homicidal: Ideation (he denies) Insight/Judgement poor Labs Date/Time Procedure Status Source Growth 01/27/17 06:20 Gram Stain Ordered Sputum Expectorated Sputum Pending 01/27/17 06:20 Sputum Culture Ordered Sputum Expectorated Sputum Pending 01/27/17 05:20 Aerobic Blood Culture - Preliminary Resulted Blood Peripheral NO GROWTH IN 1 DAY 01/27/17 05:20 Anaerobic Blood Culture - Preliminary Resulted Blood Peripheral NO GROWTH IN 1 DAY Vitals/IOs Vital Signs Date Time Temp Pulse Resp B/P Pulse Ox O2 Delivery O2 Flow Rate FiO2 01/28/17 13:01 79 01/28/17 11:00 98.3 14 130/64 100 01/28/17 08:30 Simple Mask 6.00 01/28/17 04:03 40 Intake and Output 01/27/17 01/27/17 01/28/17 08:00 16:00 00:00 Intake Total 1560 ml Output Total 100 ml 1200 ml Balance -100 ml 360 ml Assessment & Plan Problem List: (1) Depression Assessment & Plan: Even though the patient in a superficial level reports good mood, says that everything is fine, is requesting to go home, denies suicidal or homicidal ideation, denies visual and auditory hallucinations,in confrontation recent serious suicidal gesture and previous suicidal statements he seems to be still fragile and vulnerable. Patient seems to be insightless and minimizing about his depressive symptoms and emotions fueling his recent actions. Giving his psychiatric history, given the fear of his of his unpredictable behavior, given the seriousness of his recent suicidal gesture and his multiple identify suicidal risk factors, including that the patient has been recently diagnosed with cancer, but he doesn't know it because by mistake he was told that he did not have cancer, patient needs psychiatric admission for safety and stabilization. Patient can be transferred to med/psych unit once primary care physician determining is appropriate. Continue 1:1 sitter in the floor for safety. Continue Effexor 37.5 mg for depression, add clonazepam 0.5 mg twice a day for anxiety. ICD Code: F32.9 Assessment & Plan Estimated LOS: days Justification for Cont. Inpt. Patient is psychiatric admission for stabilization and safety Problem Qualifiers (1) Depression: Olayinka Arriaza MD Jan 28, 2017 13:36
[2017-01-28] MEDS ORDERED: INSULIN HUMAN NPH/R 70/30 1,000 UNITS/10 ML VIAL SQ ONE (14:30)
[2017-01-28] MEDS ORDERED: Venlafaxine Xr PO (14:38)
[2017-01-28] MEDS ORDERED: LEVO.2 PO (14:38)
[2017-01-28] MEDS ORDERED: CLIN1CAP5 PO (14:38)
[2017-01-28] MEDS ORDERED: TAMS5CAP PO (14:38)
[2017-01-28] MEDS ORDERED: SOLU40IN IV (14:38)
[2017-01-28] MEDS ORDERED: CLON.5 PO (14:38)
[2017-01-28] MEDS ORDERED: LEVO25TA4 PO (14:38)
[2017-01-28] MEDS ORDERED: DIGO0.25 PO (14:38)
[2017-01-28] MEDS ORDERED: NOVOLOGP2 SQ (14:39)
--- NOTE | 2017-01-28 14:40 | HHI.DCPOC ---
Discharge Care Plan Diagnosis: (1) Mass of epiglottis (2) Depression (3) S/P ablation of atrial fibrillation (4) Chronic pain (5) Diabetes mellitus (6) Suicidal ideation (7) COPD exacerbation (8) Pneumonia (9) Paroxysmal atrial fibrillation (10) Fracture of T4 vertebra Goals to Promote Your Health * To prevent worsening of your condition and complications * To maintain your health at the optimal level Directions to Meet Your Goals Take your medications as prescribed Follow your dietary instruction Follow activity as directed Keep your appointments as scheduled Take your immunizations and boosters as scheduled If your symptoms worsen call your PCP, if no PCP go to Urgent Care Center or Emergency Room Smoking is Dangerous to Your Health. Avoid second hand smoke Call the 24-hour hour crisis hotline for domestic abuse at Burke Govea DO Jan 28, 2017 14:40
[2017-01-28] MEDS ORDERED: IPRASOL INH (14:43)
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
[2017-01-28] MEDS ORDERED: ATORVASTATIN 40 MG TAB PO SCH (21:00)
[2017-01-30] MEDS ORDERED: DIGOXIN 0.25 MG TAB PO SCH (09:00)
== END 2017-01-28 17:23 | DRG 871 ==
LOC: NEPC 02:48 → NEDH 05:35 → HCIS 12:45
PROVIDERS: ADMIT Hospitalist; ATTEND Hospitalist
DX: A41.9 Sepsis, unspecified organism (principal); J18.9 Pneumonia, unspecified organism; J96.21 Acute and chronic respiratory failure with hypoxia; L89.152 Pressure ulcer of sacral region, stage 2; R45.851 Suicidal ideations; E11.42 Type 2 diabetes mellitus with diabetic polyneuropathy; E11.65 Type 2 diabetes mellitus with hyperglycemia; J44.0 Chronic obstructive pulmonary disease with (acute) lower respiratory infection; K31.84 Gastroparesis; I50.9 Heart failure, unspecified; J96.22 Acute and chronic respiratory failure with hypercapnia; J44.1 Chronic obstructive pulmonary disease with (acute) exacerbation; N39.0 Urinary tract infection, site not specified; C32.1 Malignant neoplasm of supraglottis; Z99.81 Dependence on supplemental oxygen; G89.29 Other chronic pain; K21.9 Gastro-esophageal reflux disease without esophagitis; E03.9 Hypothyroidism, unspecified; M19.90 Unspecified osteoarthritis, unspecified site; Z79.02 Long term (current) use of antithrombotics/antiplatelets; I10 Essential (primary) hypertension; K44.9 Diaphragmatic hernia without obstruction or gangrene; Z88.1 Allergy status to other antibiotic agents; Z91.040 Latex allergy status; Z91.048 Other nonmedicinal substance allergy status; T20.00XD Burn of unspecified degree of head, face, and neck, unspecified site, subsequent encounter; I44.0 Atrioventricular block, first degree; J70.5 Respiratory conditions due to smoke inhalation; I48.0 Paroxysmal atrial fibrillation; F40.240 Claustrophobia; F41.1 Generalized anxiety disorder; Y95 Nosocomial condition; Z90.49 Acquired absence of other specified parts of digestive tract
CPT/HCPCS: 36600; 71010; 80053; 80162; 80307; 80320; 80329; 81001; 82805; 82948; 83605; 83880; 85025; 85610; 85730; 87040; 93005; 94002; 94003; 94640; 94664; 96361; 96374; 99222; G0480; J0456; J0696; J1815; J2543; J2920; J7030; J7050

== ENCOUNTER 2017-01-28 15:35 | Inpatient (IN) | payer OTHER, MEDICARE ==
[~2017-01-28] VITALS: Ht 182.9 cm; Wt 82.8 kg
[~2017-01-28 15:35] MED LIST changes: +CLIN1CAP5 PO; +CLON.5 PO; -FURO20TA PO; +IPRASOL INH; +LEVO.2 PO; +LEVO25TA4 PO; -METO10TA PO; +NOVOLOGP2 SQ; -OXYC-392 PO; -OXYC-395 PO; +SOLU40IN IV; +TAMS5CAP PO; +Venlafaxine Xr PO
[2017-01-28] MEDS ORDERED: ALUMINUM/MAGNESIUM/SIMETH 30 ML CUP PO PRN ×2 (18:45→19:15)
[2017-01-28] MEDS ORDERED: MAGNESIUM HYDROXIDE SUSP 30 ML CUP PO PRN ×2 (18:45→19:15)
[2017-01-28] MEDS ORDERED: LORazepam 2 MG/ML VIAL - age > 65 yrs IM PRN ×2 (18:45→19:15)
[2017-01-28] MEDS ORDERED: ACETAMINOPHEN 325 MG TAB PO PRN (19:15)
[2017-01-28] MEDS ORDERED: LORazepam 0.5 MG TAB age > 65 yrs PO PRN (19:15)
[2017-01-28 19:24] VITALS: BP 131/70; PULSE 69; RESP 18; TEMP 97.1; O2SAT 93
[2017-01-28] MEDS: REMOVE OLD NICOTINE PATCH T-DERMAL SCH (21:00)
[2017-01-28] MEDS ORDERED: RESP: ALBUTEROL 2.5 MG/IPRATROPIUM 0.5 MG NEB (PRN) NEB (21:30)
[2017-01-28] MEDS ORDERED: GLUCAGON 1 MG/ML VIAL OTHER PRN (21:30)
[2017-01-28] MEDS ORDERED: DEXTROSE 50% IN WATER 50 ML VIAL(D50) IV PUSH PRN (21:30)
[2017-01-28] MEDS ORDERED: NALOXONE HCL 0.4 MG/ML AMP IV PUSH PRN (21:45)
[2017-01-28] MEDS: PIPERACIL-TAZO 4.5 GM PREMIX 100 ML IV SCH (23:30)
[2017-01-28] MEDS: clonazePAM 0.5 MG TAB PO SCH (23:37)
[2017-01-28] MEDS: traZODone HCL 100 MG TAB PO SCH (23:37)
[2017-01-28] MEDS: methylPREDNISolone SOD SUCC 40 MG/1 ML VIAL IV PUSH SCH (23:56)
[2017-01-28] MEDS: DILTIAZEM-CD 240 MG CAP ER PO SCH (23:56)
[2017-01-28] MEDS: AMIODARONE 200 MG TAB PO SCH (23:57)
[2017-01-29] MEDS: MORPHINE SULFATE 30 MG TAB PO PRN ×2 (00:29→17:21)
[2017-01-29] MEDS: PIPERACIL-TAZO 4.5 GM PREMIX 100 ML IV SCH ×4 (05:27→23:06)
[2017-01-29] MEDS: methylPREDNISolone SOD SUCC 40 MG/1 ML VIAL IV PUSH SCH ×4 (05:28→23:06)
[2017-01-29] MEDS: LEVOTHYROXINE SODIUM 25 MCG TAB PO SCH (05:28)
[2017-01-29] MEDS: LEVOTHYROXINE SODIUM 200 MCG TAB PO SCH (05:28)
[2017-01-29] MEDS: ACETAMINOPHEN 325 MG TAB PO PRN ×3 (05:39→23:07)
[2017-01-29 05:40] VITALS: BP 155/70; PULSE 59; RESP 15; TEMP 97.5
[2017-01-29] MEDS: INSULIN ASPART SUPPLEMENTAL SCALE SQ SCH ×4 (06:46→20:35)
[2017-01-29 07:21] LABS: ANION GAP 6 MEQ/L (5-15); BICARBONATE 39.7 MEQ/L (21.0-32.0); BLOOD UREA NITROGEN 30 MG/DL (7-18); CHLORIDE 92 MEQ/L (98-107); GLOMERULAR FILTRATION RATE 103 ML/MIN (>89); SODIUM (NA) 138 MEQ/L (136-145)
[2017-01-29 07:26] LABS: HDL CHOLESTEROL 64.4 MG/DL (40.0-60.0); LDL CHOLESTEROL 69 MG/DL (0-99)
[2017-01-29] MEDS: RESP: ALBUTEROL 2.5 MG/IPRATROPIUM 0.5 MG NEB (SCH) NEB ×4 (08:02→22:08)
[2017-01-29 08:05] VITALS: O2SAT 93
[2017-01-29] MEDS: NICOTINE 21 MG/24 HR PATCH T-DERMAL SCH (09:00)
[2017-01-29] MEDS: DOCUSATE SODIUM 100 MG CAP PO SCH ×2 (09:00→20:34)
[2017-01-29] MEDS ORDERED: VENLAFAXINE HCL XR 37.5 MG CAP PO SCH (09:00)
[2017-01-29] MEDS: clonazePAM 0.5 MG TAB PO SCH ×2 (09:11→20:34)
[2017-01-29] MEDS: AMIODARONE 200 MG TAB PO SCH ×2 (09:11→20:34)
[2017-01-29] MEDS: PANTOPRAZOLE SOD 40 MG DELAYED RELEASE TAB PO SCH (09:12)
[2017-01-29] MEDS: RIVAROXABAN 20 MG TAB PO SCH (09:12)
[2017-01-29] MEDS: FUROSEMIDE 40 MG TAB PO SCH (09:12)
[2017-01-29] MEDS: DILTIAZEM-CD 240 MG CAP ER PO SCH ×2 (09:12→20:34)
[2017-01-29] MEDS: REMOVE OLD NICOTINE PATCH T-DERMAL SCH (09:30)
[2017-01-29 10:51] LABS: HEMOGLOBIN A1a 1.4 %; HEMOGLOBIN A1b 2.4 %; HEMOGLOBIN Ao 78.6 %; HEMOGLOBIN LA1C 3.7 %; HEMOGLOBIN P3 5.5 %
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
--- NOTE | 2017-01-29 14:37 | HHI.HP ---
Provisional Diagnosis Admission Date Jan 28, 2017 at 15:35 Rodessa I. Major depressive disorder, recurrent, without psychosis Rodessa II. Deferred Certification of Person's Competence To Provide Express and Informed Consent I have personally examined Curtis Santana , a person being served at [facility] on, Jan 29, 2017 14:06. Express and informed consent means consent voluntarily given in writing, by a competent person, after sufficient explanation and disclosure of the subject matter involved to enable the person to make a knowing and willful decision without any element of force, fraud, deceit, duress, or other form of constraint or coercion. This person is 18 years of age or older, is not now known to be incompetent to consent to treatment with a guardian advocate, and does not have a health care surrogate or proxy currently making medical treatment decisions. I have found this person to be one of the following: [] Competent to provide express and informed consent, as defined above, for voluntary admission to this facility and is competent to provide express and informed consent for treatment. He/she has the consistent capacity to make well reasoned, willful, and knowing decisions concerning his or her medical or mental health treatment. The person fully and consistently understands the purpose of the admission for examination/placement and is fully capable of personally exercising all rights assured under [place] Incompetent to provide express and informed consent to voluntary admission, and this is incompetent to provide express and informed consent to treatment. The person must be transferred to involuntary status and a petition for a guardian advocate filed with the Circuit Court. [X] Refusing to provide express and informed consent to voluntary admission but is competent to provide express and informed consent for treatment. The person must be discharged or transferred to involuntary status. Form shall be completed within 24 hours of a person's arrival at the receiving facility and filed in the clinical record of each person: 1. Admitted on a voluntary basis 2. Permitted to provide express and informed consent to his/her own treatment 3. Allowed to transfer from involuntary to voluntary status 4. Prior to permitting a person to consent to his or her own treatment after having been previously found incompetent to consent to treatment. History of Present Illness Capacity: Has Capacity HPI On my initial evaluation and : The patient is a 76-year-old man, domiciled with his in [facility] [place], without any previous psychiatric history, no previous suicidal attempts, no previous use of psychotropics, seen by psychiatry in previous hospitalizations due to depression related with adjustment, medical history of DM, afib, COPD on home oxygen, GERD, CHF, hypothyroidism who presented to the [facility] emergency department with a history of recently being discharged from the hospital after 2 admissions earlier in the month. The initial admission was related to facial monroy while smoking on oxygen in which he was transferred to [facility], the second admission on January 15, 2017 was related to generalized weakness, confusion, scrotal edema and UTI. Patient was brought in today because patient' s stated he is more depressed and told the police he attempted to shoot himself. Patient is currently a [place] act that was written prior to the patient' s arrival and it states the patient had a fire arm out and was attempting to shoot himself in the abdomen. Patients reports that he attempted to pull the trigger multiple times, however he was too weak to do it. Patient was seen for psychiatric evaluation in the ER, but he was unable to cooperate appropriately due to acute respiratory symptoms, the patient is severely SOB and cannot answer questions appropriate. However, patient this depresses that he is sad due to his medical situation and also "due to many other things", but he denies suicidal and homicidal ideation, he denies visual and auditory hallucinations. He was not confronted about his recent suicidal gesture. His Dana Santana who was used as collateral information, says the last night she discovered that her had a gun pointing to his stomach under a blanket. She said that she became very scared because in the last weeks he has been voicing suicidal statements. She is states that she is very concerned because at the beginning of the month he had a throat biopsy sent to pathology and his regular doctor received back to her and told them that he was negative, but just this morning in their arrival to the [facility] she was told that the biopsy was actually positive. She is very afraid that once he knows that he is going to become even more depressed and more suicidal. 01/29/2017: Today on evaluation along with manager social Carine and nurse Juan, patient seems to be in an improved mood, still presenting breathing difficulties , with active oxygen mask, he says that he regrets his behavior at home yesterday. He say that he has been very confused about many things of his life. Patient states that is not easy to be sick, to losing control of himself , and also seeing how his is quitting her job just to take care of his. For this reason patient stated that he feels guilty, sad, hopeless, ashamed and at some point he has thought that is better to be and No [place] for his family. But, he says that this is a mistake, he wants to live, he wants to fight for his health and for his family. While giving this information patient beginning emotional and tearful and admitted that he needs the help and he accept it. At this moment he denies suicidal ideation, he denies visual and auditory hallucinations. Patient is partially oriented in place, partially oriented in time, he knows he is in the hospital and he knows is 2017. In a telephone conversation with his today, we plan to meet with the patient tomorrow at 11 AM to disclose the information of his cancer. I spoke with Dr. Casas, oncology radiologist, and he would see the patient tomorrow afternoon for explanation of treatment alternatives. Review of Systems Endocrine: DENIES: Heat/cold intolerance, Polydipsia, Polyuria, Polyphagia Respiratory: COMPLAINS OF: Cough, Shortness of breath, DENIES: Apneas, Snoring , Wheezing, Hemoptysis, Sputum production Cardiovascular: DENIES: Chest pain, Palpitations, Syncope, Dyspnea on Exertion , PND, Lower Extremity Edema, Orthopnea, Claudication Gastrointestinal: DENIES: Abdominal pain, Black stools, Bloody stools, Constipation, Diarrhea, Nausea, Vomiting, Difficulty Swallowing, Anorexia Genitourinary: DENIES: Sexual dysfunction, Urinary frequency, Urinary incontinence, Urgency, Hematuria, Dysuria, Nocturia, Penile Discharge, Testicular Pain, Testicular Swelling Musculoskeletal: DENIES: Joint pain, Muscle aches, Stiffness, Joint Swelling, Back pain, Neck pain Integumentary: DENIES: Abnormal pigmentation, Nail changes, Pruritus, Rash Hematologic/lymphatic: DENIES: Bruising, Lymphadenopathy Immunologic/allergic: DENIES: Eczema, Urticaria Neurologic: DENIES: Abnormal gait, Headache, Localized weakness, Paresthesias, Seizures, Speech Problems, Tremor, Poor Balance Psychiatric: COMPLAINS OF: Depression, DENIES: Anxiety, Confusion, Mood changes, Hallucinations, Agitation, Suicidal Ideation, Homicidal Ideation, Delusions Past Psych History Violence risk - self (6 mos) Elevated Substance Abuse History Drugs/Alcohol past 12 months He denies the use of alcohol and drug Past Family Social History Coded Allergies: Flagyl (Verified Allergy, Severe, 01/27/17) Floxcin (Verified Allergy, Severe, 01/27/17) Latex (Verified Allergy, Severe, 01/27/17) Adhesives (Verified Allergy, Mild, 01/27/17) Active Scripts Ipratropium-Albuterol Neb (Duoneb)0.5-2.5 Mg/3 Ml Neb1 Ampule INH QID NEB #20 NEBULE Prov:Burke Govea DO 01/28/17 Insulin Aspart Inj (Novolog Inj)1,000 Unit/10 Ml Vial1-9 Units SQ ACHS #10 ML Ref 0 Max dose at bedtime:( )units; sugars less than 70,(0)units; sugars 150-199,(1) unit; sugars 200-249,(3) units; sugars 250-299,(5) units; sugars 300-349,(7) units; sugars greater than 349,(9) units Prov:Burke Govea DO 01/28/17 Clindamycin 150 Mg Hvz513 Mg PO Q6H #28 CAP Ref 0 Prov:Burke Govea DO 01/28/17 [Venlafaxine Hcl] (Effexor Xr)37.5 MG CAPER No Conflict Check37.5 Mg PO DAILY Prov:Burke Govea DO 01/28/17 Tamsulosin (Flomax)0.4 Mg Cap0.4 Mg PO HS #30 CAP Prov:Burke Govea DO 01/28/17 Methylprednisolone Sod Succinate Inj (Solu-Medrol Inj)40 Mg Inj40 Mg IV BID #6 INJECTION Prov:Burke Govea DO 01/28/17 Levothyroxine 25 Mcg Tab25 Mcg PO DAILY@0600 #30 TAB Prov:Burke Govea DO 01/28/17 Levothyroxine (Synthroid)200 Mcg Aqg780 Mcg PO DAILY@0600 #30 TAB Prov:Burke Govea DO 01/28/17 Digoxin 0.25 Mg Tab0.25 Mg PO Q48H #15 TAB Prov:Burke Govea DO 01/28/17 Clonazepam (Klonopin)0.5 Mg Tab0.5 Mg PO Q12HR #20 TAB Prov:Burke Govea DO 01/28/17 Furosemide (Lasix)40 Mg Tab40 Mg PO DAILY #30 TAB Ref 0 Prov:Vicky Garcia MD 01/20/17 Potassium Chloride ER 10 Meq Cap10 Meq PO EVERY OTHER DAY #30 CAP Ref 0 Prov:Vicky Garcia MD 01/20/17 Nystatin Topical 100,000 unit/gm Oint1 Applic TOPICAL Q12HR 7 Days Ref 0 Prov:NanyLuz DO 01/11/17 Diltiazem CD 24 HR (Cardizem CD 24 HR)240 Mg Jfalu724 Mg PO BID #60 CAP Prov:John Hargrove MD 01/10/17 Bacitracin Topical 500 Unit/Gm Oint1 Applic TOPICAL Q6HR #30 GM Ref 0 Prov:John Hargrove MD 01/10/17 Amiodarone 200 Mg Hon196 Mg PO BID #60 TAB Prov:John Hargrove MD 01/10/17 Ranitidine (Zantac)150 Mg Utq194 Mg PO BID #60 TAB Ref 0 Prov:John Hargrove MD 01/10/17 Pantoprazole (Protonix)40 Mg Tab40 Mg PO DAILY #30 TAB Ref 0 Prov:John Hargrove MD 01/10/17 Atorvastatin 40 Mg Tab40 Mg PO HS #30 TAB Ref 0 Prov:John Hargrove MD 01/10/17 Tiotropium Inh (Spiriva Handihaler)18 Mcg Cap18 Mcg INH DAILY #30 CAP Ref 0 1 capsule = 18 mcg Prov:John Hargrove MD 01/10/17 Rivaroxaban (Xarelto)20 Mg Tab20 Mg PO DAILY #30 TAB Ref 0 Prov:John Hargrove MD 01/10/17 Reported Medications Ondansetron 8 Mg Tab8 Mg PO Q8HR PRN (NAUSEA OR VOMITING) Ref 0 01/11/17 Morphine IR 30 Mg Tab60 Mg PO BID PRN (BREAKTHROUGH PAIN) Ref 0 01/11/17 Sennosides (Senna)8.8 Mg/5 Ml Syp15 Po Bid 01/11/17 Trazodone 100 Mg Piv878 Mg PO HS #30 TAB Ref 0 01/11/17 Fentanyl Patch 72 HR 100 Mcg/Hr [id number] Mcg T-DERMAL every 48 hours #10 PATCH Ref 0 Remove old patch when new one placed. 01/11/17 Multiple Vitamins W/ Minerals (Multivitamin Adults)1 Tab1 Tab PO DAILY Ref 0 01/02/17 Insulin Human Isophane-Regular 70-30 Inj (Novolin 70/30 Inj)1,000 Units/10 Ml Inj25 Sq Bid 01/02/17 Docusate Sodium 100 Mg Kvt102 Mg PO BID #60 CAP Ref 0 01/02/17 Albuterol Powder Inh (Proair Respiclick Inh)90 Mcg/Act Aerp2 Puff INH Q4HR PRN ( SHORTNESS OF BREATH) #1 INHALER Ref 0 11/17/16 Discontinued Reported Medications Furosemide 20 Mg Tab20 Mg PO ONCE #60 TAB Ref 0 01/11/17 Oxycodone 10 Mg Tab10 Mg PO Q4H PRN (PAIN) Ref 0 01/02/17 Discontinued Scripts Levothyroxine (Synthroid)100 Mcg Yep853 Mcg PO DAILY@06 #30 TAB Ref 0 Prov:John Hargrove MD 01/10/17 Digoxin 0.25 Mg Tab0.25 Mg PO DAILY #30 TAB Ref 0 Prov:John Hargrove MD 01/10/17 Oxycodone 5 Mg Tab5 Mg PO Q4H PRN (PAIN SCALE 3 TO 5) #20 TAB Prov:Vicky Garcia MD 01/19/17 Metoclopramide 10 Mg Tab5 Mg PO TID 30 Days Prov:Pro Driscoll MD 12/15/16 Current Medications Medications (Trade) Dose Ordered Sig/Melissa Route Start Time Stop Time Status Last Admin (Ativan) 0.5 mg Q12H PRN PO 01/28/17 18:45 (Ativan Inj) 0.5 mg Q12H PRN IM 01/28/17 18:45 (Tylenol) 650 mg Q4H PRN PO 01/28/17 18:45 01/29/17 05:39 (Milk Of Magnesia Liq) 30 ml DAILY PRN PO 01/28/17 18:45 (Mag-Al Plus Susp Liq) 30 ml Q6H PRN PO 01/28/17 18:45 (Habitrol 21 Mg Patch.24 Hr) 1 patch DAILY T-DERMAL 01/29/17 09:00 01/29/17 09:00 Miscellaneous Information 1 HS T-DERMAL 01/28/17 21:00 (Effexor Xr) 37.5 mg DAILY PO 01/29/17 09:00 01/29/17 09:12 (KlonoPIN) 0.5 mg Q12HR PO 01/28/17 21:00 01/29/17 09:11 (Desyrel) 200 mg HS PO 01/28/17 21:00 01/28/17 23:37 (D50w (Vial) Inj) 25 ml UNSCH PRN IV PUSH 01/28/17 21:30 (Glucagon Inj) 1 mg UNSCH PRN OTHER 01/28/17 21:30 (Flomax) 0.4 mg HS PO 01/29/17 21:00 (SoluMEDROL INJ) 40 mg Q6HR IV PUSH 01/29/17 00:00 01/29/17 12:00 (Colace) 100 mg BID PO 01/29/17 09:00 (Protonix) 40 mg DAILY PO 01/29/17 09:00 01/29/17 09:12 (Cordarone) 200 mg Q12HR PO 01/28/17 21:30 01/29/17 09:11 (Cardizem Cd) 240 mg BID PO 01/28/17 21:30 01/29/17 09:12 (Lasix) 40 mg DAILY PO 01/29/17 09:00 01/29/17 09:12 (Xarelto) 20 mg DAILY PO 01/29/17 09:00 01/29/17 09:12 (Synthroid) 200 mcg DAILY@0600 PO 01/29/17 06:00 01/29/17 05:28 (Synthroid) 25 mcg DAILY@0600 PO 01/29/17 06:00 01/29/17 05:28 Morphine Sulfate 30 mg 30 mg BID PRN PO 01/28/17 21:30 01/29/17 00:29 (Zosyn 4.5 Gm Premix) 100 ml @ 200 mls/hr Q6H IV 01/28/17 23:00 01/29/17 11:00 Family History Patient was born and raised in [place], he has been living in [place] since 2014, he lives with his [place], has 2 kids, he is a , disabled, 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, he has 2 years of college Physical Exam Vital Signs Vital Signs Date Time Temp Pulse Resp B/P Pulse Ox O2 Delivery O2 Flow Rate FiO2 01/29/17 08:05 93 Simple Mask 3.00 01/29/17 05:40 97.5 59 15 155/70 I/O 01/28/17 01/28/17 01/29/17 08:00 16:00 00:00 Intake Total 240 ml Balance 240 ml Mental Status Examination Appearance man, age appearing, wearing oxygen mask, hospital [facility], calm and cooperative, tearful throughout interview Speech: Hesitant, Slow Orientation: Person, Place (partially), Time (partially) Thought Process: Logical Thought Content: Unremarkable Attention and Concentration: Good Suicidal Ideation: No Previous Suicide Attempts: No Homicidal Ideation: No Previous Homicide Attempts: No Judgement: WNL Affect: Sad Mood: Sad Motor Activity: Normal gait Assessment & Plan Problem List: (1) Depression Assessment & Plan: The patient is a 76-year-old man, domiciled with his in [place], , without any previous psychiatric history, no previous suicidal attempts, no previous use of psychotropics, seen by psychiatry in previous hospitalizations due to depression related with adjustment, medical history of DM, afib, COPD on home oxygen, GERD, CHF, hypothyroidism who presented to the [facility] emergency department with a history of recently being discharged from the hospital after 2 admissions earlier in the month. The initial admission was related to facial monroy while smoking on oxygen in which he was transferred to [facility], the second admission on January 15, 2017 was related to generalized weakness, confusion, scrotal edema and UTI. Patient was brought in today because patient's stated he is more depressed and told the police he attempted to shoot himself. Patient had significant SOB limiting his participation in the psychiatric assessment, but in general he was able to provide meaningful information. Recent serious suicidal gesture pointing a gun in his stomach, has made several suicidal statement to his in the last weeks Patient was recently diagnosed with cancer, but he doesn't know it. Tomorrow will meet with family members, manager social, and oncology radiologist to disclose information for the patient and also education about alternative treatment. As per patient has been presenting symptomatology of depression in the last month related with decompensation of underlying medical conditions Several suicidality risk factors active and present at this moment and patient represents an imminent danger to himself. Patient needs psychiatric hospitalization for stabilization and safety. Continue Effexor 37.5 mg for depression, will increase to 75 mg tomorrow. Extensive support, psychoeducation motivation provided. packing floor worker intervention to completed psychosocial assessment and to arrange family meeting as soon as possible. ICD Code: F32.9 Assessment & Plan Estimated LOS: days Problem Qualifiers (1) Depression: Olayinka Arriaza MD Jan 29, 2017 14:37
[2017-01-29] MEDS ORDERED: LACTULOSE SYRUP 20 GM/30 ML CUP PO PRN (15:45)
[2017-01-29] MEDS ORDERED: Vancomycin Consult Pharmacy 1 EA OTHER SCH (15:45)
[2017-01-29] MEDS ORDERED: BISACODYL 10 MG SUPP RECTAL PRN (15:45)
[2017-01-29] MEDS ORDERED: VANCOMYCIN INJ 1,000 MG in SODIUM CHLOR 0.9% 250 ML INJ 250 ML IV SCH (15:45)
[2017-01-29] MEDS: POLYETHYLENE GLYCOL 17 GM PKG PO SCH (16:40)
[2017-01-29] MEDS: VANCOMYCIN INJ 1,500 MG in SODIUM CHLORID 0.9% 500 ML INJ 500 ML IV SCH (18:00)
[2017-01-29] MEDS: INSULIN ASPART 1,000 UNITS/10 ML VIAL SQ SCH (18:30)
[2017-01-29 19:40] VITALS: BP 149/67; PULSE 72; RESP 18; TEMP 97.4; O2SAT 95
[2017-01-29] MEDS: traZODone HCL 100 MG TAB PO SCH (20:34)
[2017-01-29] MEDS: TAMSULOSIN HCL 0.4 MG CAP PO SCH (20:34)
[2017-01-29] MEDS: INSULIN DETEMIR 100 UNITS/ML VIAL SQ SCH (20:36)
[2017-01-29] MEDS ORDERED: INSULIN DETEMIR 100 UNITS/ML VIAL SQ SCH (21:00)
[2017-01-29] MEDS ORDERED: traZODone HCL 100 MG TAB PO SCH (21:00)
[2017-01-29 22:10] VITALS: O2SAT 96
[2017-01-29] MEDS: LORazepam 0.5 MG TAB age > 65 yrs PO PRN (23:07)
[2017-01-30] MEDS: PIPERACIL-TAZO 4.5 GM PREMIX 100 ML IV SCH ×4 (05:04→23:00)
[2017-01-30 05:38] VITALS: BP 135/64; PULSE 65; RESP 15; TEMP 97.3; O2SAT 94
[2017-01-30] MEDS: VANCOMYCIN INJ 1,500 MG in SODIUM CHLORID 0.9% 500 ML INJ 500 ML IV SCH ×2 (05:38→18:00)
[2017-01-30] MEDS: LEVOTHYROXINE SODIUM 200 MCG TAB PO SCH (05:38)
[2017-01-30] MEDS: methylPREDNISolone SOD SUCC 40 MG/1 ML VIAL IV PUSH SCH ×3 (05:38→18:00)
[2017-01-30] MEDS: LEVOTHYROXINE SODIUM 25 MCG TAB PO SCH (05:38)
[2017-01-30] MEDS: MORPHINE SULFATE 30 MG TAB PO PRN ×2 (05:47→19:29)
[2017-01-30] MEDS ORDERED: INSULIN HUMAN REGULAR 1,000 UNITS/10 ML VIAL IVP ONE (07:00)
[2017-01-30] MEDS: INSULIN ASPART SUPPLEMENTAL SCALE SQ SCH ×4 (07:00→22:23)
[2017-01-30 07:48] LABS: AUTOMATED NEUTROPHIL # 10.7 TH/MM3 (1.8-7.7); BASOPHIL # 0.1 TH/MM3 (0-0.2); BASOPHIL % 0.5 % (0.0-2.0); HEMATOCRIT 37.8 % (39.0-51.0); HEMO FLAGS DIFF FINAL; LYMPH % 1.4 % (9.0-44.0); LYMPHOCYTE # 0.2 TH/MM3 (1.0-4.8); MEAN CELL VOLUME 84.5 FL (80.0-100.0); MEAN CORPUSCULAR HEMOGLOBIN 27.8 PG (27.0-34.0); MEAN CORPUSCULAR HGB CONC 32.9 % (32.0-36.0); MONO % 2.2 % (0.0-8.0); NEUT % 95.9 % (16.0-70.0); PLATELET COUNT 266 TH/MM3 (150-450); RED BLOOD COUNT 4.47 MIL/MM3 (4.50-5.90); RED CELL DISTRIBUTION WIDTH 17.8 % (11.6-17.2); WHITE BLOOD COUNT 11.1 TH/MM3 (4.0-11.0)
[2017-01-30 08:17] LABS: ALKALINE PHOSPHATASE 74 U/L (45-117); ALT (GPT) 37 U/L (12-78); ANION GAP 5 MEQ/L (5-15); AST (GOT) 9 U/L (15-37); BICARBONATE 40.1 MEQ/L (21.0-32.0); BLOOD UREA NITROGEN 34 MG/DL (7-18); CHLORIDE 94 MEQ/L (98-107); GLOMERULAR FILTRATION RATE 84 ML/MIN (>89); POTASSIUM 3.8 MEQ/L (3.5-5.1); SODIUM (NA) 139 MEQ/L (136-145); TOTAL BILIRUBIN ADULT 0.7 MG/DL (0.2-1.0)
[2017-01-30] MEDS: RESP: ALBUTEROL 2.5 MG/IPRATROPIUM 0.5 MG NEB (SCH) NEB ×4 (08:32→20:15)
--- NOTE | 2017-01-30 08:40 | HHI.PYPN ---
Subjective Remarks Patient is seen for psychiatric reevaluation today, today he has a visible better affect, he reports good mood, he requests to be discharged back home stating that "I am not going to do something so stupid again", patient says that he was confused and obfuscated when he pointed himself with a gun with a suicidal intentions. Patient says that he has a wonderful family, he has too many things to live for and he just want to fight for his life. Patient stated face and some respiratory problems, but also feeling better. He denies suicidal or homicidal ideation, he denies visual and auditory hallucinations. He reports improved level of energy, appetite and good sleep. Patient is fully oriented 3, no gross cognitive impairment observed at this moment. Patient is fully compliant with medications, no significant side effects. Review of Systems Other No significant changes since 01/29/2017 Objective Alert: Yes Terry: Person, Place, Date, Situation Mood: Calm Affect: Euthymic Memory Intact: Immediate, Recent, Remote Hallucinations: Other (he denies) Delusions: No Delusion Type: Other (none elicited) Suicidal: Ideation (he denies) Homicidal: Ideation (he denies) Insight/Judgement fair Labs Test 01/29/17 01/30/17 17:10 07:13 Random Glucose 541 MG/DL White Blood Count 11.1 TH/MM3 Red Blood Count 4.47 MIL/MM3 Hemoglobin 12.4 GM/DL Hematocrit 37.8 % Mean Corpuscular Volume 84.5 FL Mean Corpuscular Hemoglobin 27.8 PG Mean Corpuscular Hemoglobin 32.9 % Concent Red Cell Distribution Width 17.8 % Platelet Count 266 TH/MM3 Mean Platelet Volume 8.2 FL Neutrophils (%) (Auto) 95.9 % Lymphocytes (%) (Auto) 1.4 % Monocytes (%) (Auto) 2.2 % Eosinophils (%) (Auto) 0.0 % Basophils (%) (Auto) 0.5 % Neutrophils # (Auto) 10.7 TH/MM3 Lymphocytes # (Auto) 0.2 TH/MM3 Monocytes # (Auto) 0.2 TH/MM3 Eosinophils # (Auto) 0.0 TH/MM3 Basophils # (Auto) 0.1 TH/MM3 CBC Comment DIFF FINAL Differential Comment Vitals/IOs Vital Signs Date Time Temp Pulse Resp B/P Pulse Ox O2 Delivery O2 Flow Rate FiO2 3/3/17 05:38 97.3 65 15 135/64 94 01/29/17 22:10 Simple Mask 6.00 Intake and Output 01/29/17 01/29/17 01/30/17 08:00 16:00 00:00 Intake Total 450 ml 0 ml Output Total 350 ml 550 ml Balance 100 ml -550 ml Assessment & Plan Problem List: (1) Depression Assessment & Plan: Patient will continue psychiatric hospitalization for stabilization, will increase Effexor to 75 mg daily to help with depression. Family meeting to the 11 AM with his and daughter and disclosed information about his recently diagnosed cancer and to discuss discharge planning. ICD Code: F32.9 Assessment & Plan Estimated LOS: days Justification for Cont. Inpt. Patient is still unpredictable, minimizing symptomatology of depression, needs psychiatric hospitalization for stabilization and potential medication adjustment. Problem Qualifiers (1) Depression: Olayinka Arriaza MD Jan 30, 2017 08:40
[2017-01-30] MEDS: RIVAROXABAN 20 MG TAB PO SCH (08:59)
[2017-01-30] MEDS: NICOTINE 21 MG/24 HR PATCH T-DERMAL SCH (09:00)
[2017-01-30] MEDS: FUROSEMIDE 40 MG TAB PO SCH (09:00)
[2017-01-30] MEDS: INSULIN DETEMIR 100 UNITS/ML VIAL SQ SCH ×2 (09:00→21:49)
[2017-01-30] MEDS: DOCUSATE SODIUM 100 MG CAP PO SCH ×2 (09:00→21:48)
[2017-01-30] MEDS: clonazePAM 0.5 MG TAB PO SCH ×2 (09:00→21:48)
[2017-01-30] MEDS: AMIODARONE 200 MG TAB PO SCH ×2 (09:00→21:48)
[2017-01-30] MEDS: VENLAFAXINE HCL XR 37.5 MG CAP PO SCH (09:00)
[2017-01-30] MEDS: PANTOPRAZOLE SOD 40 MG DELAYED RELEASE TAB PO SCH (09:00)
[2017-01-30] MEDS: DILTIAZEM-CD 240 MG CAP ER PO SCH ×2 (09:00→21:48)
[2017-01-30] MEDS: POLYETHYLENE GLYCOL 17 GM PKG PO SCH (09:01)
[2017-01-30] MEDS: INSULIN ASPART 1,000 UNITS/10 ML VIAL SQ SCH ×3 (09:10→17:15)
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
[2017-01-30 19:59] VITALS: BP 126/59; PULSE 61; RESP 15; TEMP 97.5; O2SAT 95
[2017-01-30 20:20] VITALS: O2SAT 93
[2017-01-30] MEDS: REMOVE OLD NICOTINE PATCH T-DERMAL SCH (21:00)
--- NOTE | 2017-01-30 21:16 | HHI.FPPN ---
Addendum to progress note ADDENDUM Reason for addendum: Additonal documentation Additional information S: Ivan called for patient at about ~21:00 on 01/30. Upon arrival, report from staff was that patient has had a slightly increased work of breathing over about the past hour and oxygen desaturation to as low as 90%. The patient had been titrated up to 6L of oxygen via NC to maintain sats > 90%. Patient is currently on a face mask. The patient is alert, fully oriented, able to speak in short sentences. Staff denies any signs of confusion, episodes of fever, or chest pain from the patient. O: BP 135/64 HR 70 RR ~16-18 POx 93-94% on 6L face mask GENERAL: Appears in mild amount of distress secondary to shortness of breath NEURO: AOx3. Speaks in short sentences when face mask is taken off. microfilm clerk grossly intact. Moving all extremities. SKIN: Warm and dry. No rashes or erythema. HEENT: NC/AT. EOMI. No scleral icterus. No injection or drainage. Moist mucous membranes. NECK: Supple, trachea midline. No JVD. CARDIOVASCULAR: Regular rate and rhythm without murmurs, rubs, or gallops. Peripheral pulses 2+. RESPIRATORY: Fine bibasilar rales. No wheezing. Breath sounds are equal. No accessory muscle use. GASTROINTESTINAL: Abdomen soft, nontender, nondistended, normal BS. No rebound tenderness. No guarding. EXTREMITIES: 1+ pitting edema up to mid-tibia of right leg. No edema appreciated in left leg. Calves are nontender bilaterally. A/P: 76 year old male with h/o COPD on home oxygen, a-fib, DM, CHF, and hypothyroidism who was Hudson acted and brought in on 01/27/17 due to depression and suicidal ideation and at time of presentation was diagnosed with a-fib with RVR and CHF. Ivan was called due to increased work of breathing and oxygen desaturation to as low as 90% on 6L of oxygen via NC. He is afebrile and without chest pain. He is likely having an exacerbation of CHF based on exam findings and we will give 20 mg of IV Lasix at this time and hold any additional fluids he might be receiving in addition to fluids given with his antibiotics. The patients nurse will inform the primary medicine team of the plan and of the patients status. Sincere Beck MD R1 Jan 30, 2017 21:16
[2017-01-30] MEDS ORDERED: FUROSEMIDE 20 MG/2 ML VIAL IV PUSH ONE (21:30)
[2017-01-30] MEDS: TAMSULOSIN HCL 0.4 MG CAP PO SCH (21:48)
[2017-01-30] MEDS: traZODone HCL 100 MG TAB PO SCH (21:48)
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
[2017-01-31] MEDS: LORazepam 0.5 MG TAB age > 65 yrs PO PRN (01:24)
[2017-01-31] MEDS: PIPERACIL-TAZO 4.5 GM PREMIX 100 ML IV SCH ×5 (04:50→23:00)
[2017-01-31] MEDS ORDERED: PHARMACY ORDERED LAB XX ONE ×2 (05:45→17:45)
[2017-01-31] MEDS: LEVOTHYROXINE SODIUM 200 MCG TAB PO SCH (05:50)
[2017-01-31] MEDS: LEVOTHYROXINE SODIUM 25 MCG TAB PO SCH (05:50)
[2017-01-31] MEDS: methylPREDNISolone SOD SUCC 40 MG/1 ML VIAL IV PUSH SCH ×4 (05:52→17:39)
[2017-01-31 05:55] VITALS: BP 164/72; PULSE 65; RESP 16; TEMP 97.4; O2SAT 99
[2017-01-31] MEDS: VANCOMYCIN INJ 1,500 MG in SODIUM CHLORID 0.9% 500 ML INJ 500 ML IV SCH ×2 (05:59→18:00)
[2017-01-31] MEDS: INSULIN ASPART SUPPLEMENTAL SCALE SQ SCH ×4 (06:19→21:00)
[2017-01-31] MEDS: RESP: ALBUTEROL 2.5 MG/IPRATROPIUM 0.5 MG NEB (SCH) NEB ×4 (08:13→20:50)
[2017-01-31 08:15] VITALS: O2SAT 97
[2017-01-31] MEDS: NICOTINE 21 MG/24 HR PATCH T-DERMAL SCH (08:37)
[2017-01-31] MEDS: AMIODARONE 200 MG TAB PO SCH ×2 (08:38→21:33)
[2017-01-31] MEDS: PANTOPRAZOLE SOD 40 MG DELAYED RELEASE TAB PO SCH (08:38)
[2017-01-31] MEDS: POLYETHYLENE GLYCOL 17 GM PKG PO SCH (08:38)
[2017-01-31] MEDS: VENLAFAXINE HCL XR 37.5 MG CAP PO SCH (08:38)
[2017-01-31] MEDS: MORPHINE SULFATE 30 MG TAB PO PRN (08:38)
[2017-01-31] MEDS: DOCUSATE SODIUM 100 MG CAP PO SCH ×2 (08:38→21:33)
[2017-01-31] MEDS: DILTIAZEM-CD 240 MG CAP ER PO SCH ×2 (08:38→21:33)
[2017-01-31] MEDS: clonazePAM 0.5 MG TAB PO SCH ×2 (08:38→21:33)
[2017-01-31] MEDS: FUROSEMIDE 40 MG TAB PO SCH (08:38)
[2017-01-31] MEDS: INSULIN DETEMIR 100 UNITS/ML VIAL SQ SCH ×2 (08:39→21:00)
[2017-01-31] MEDS: RIVAROXABAN 20 MG TAB PO SCH (08:39)
[2017-01-31] MEDS: INSULIN ASPART 1,000 UNITS/10 ML VIAL SQ SCH ×3 (08:44→17:40)
--- NOTE | 2017-01-31 08:58 | RADRPT ---
EXAM DATE/TIME: 01/31/2017 08:37 [facility] COMPARISON: CHEST SINGLE AP, January 27, 2017, 3:32. INDICATIONS : Shortness of breath. MEDICAL HISTORY : Chronic obstructive pulmonary disease. SURGICAL HISTORY : Left shoulder surgery. ENCOUNTER: Subsequent ACUITY: 4 - 6 days PAIN SCORE: 0/10 LOCATION: Bilateral chest FINDINGS: Portable AP view of the chest demonstrates a normal-sized cardiac silhouette with calcification of th e aorta. There is a right basilar pleural-parenchymal opacity, increased from the prior study and the re is a left basilar pleural-parenchymal opacity that is similar to the prior examination. No pneumot horax is visualized. Bones demonstrate no acute finding. Left proximal humerus hardware remains parti ally visualized. CONCLUSION: 1. Small to moderate size right pleural effusion with associated compressive atelectasis and/or conso lidation. The pleural effusion has increased from the prior examination. 2. Stable small left basilar pleural-parenchymal opacity likely representing a very small volume of p leural fluid with associated air space consolidation. Otis Peterson MD on January 31, 2017 at 8:55 Board Certified Radiologist. This report was verified electronically.
[2017-01-31 10:49] VITALS: O2SAT 90
[2017-01-31] MEDS ORDERED: FUROSEMIDE 20 MG/2 ML VIAL IV PUSH SCH (13:30)
[2017-01-31] MEDS ORDERED: POTASSIUM CHLORIDE 10 MEQ CONTROLLED RELEASE TAB PO SCH (13:30)
[2017-01-31] MEDS ORDERED: FUROSEMIDE 20 MG/2 ML VIAL IV PUSH ONE (13:45)
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
--- NOTE | 2017-01-31 16:27 | HHI.PYPN ---
Subjective Remarks Patient seen in room with nasal oxygen on seen with nurse Delia, chart reviewed, patient calm pleasant with me denies suicidality homicidality voices or visions does hope to go home soon. For now continue treatment Review of Systems Except as stated in HPI: all other systems reviewed are Neg Objective Alert: Yes [place]: Person, Place, Date, Situation Mood: Calm Affect: Euthymic Memory Intact: Immediate, Recent, Remote Hallucinations: Other (he denies) Delusions: No Delusion Type: Other (none elicited) Suicidal: Ideation (he denies) Homicidal: Ideation (he denies) Insight/Judgement Poor Labs Test 01/31/17 06:47 Vancomycin Level Trough 16.9 MCG/ML Vitals/IOs Vital Signs Date Time Temp Pulse Resp B/P Pulse Ox O2 Delivery O2 Flow Rate FiO2 01/31/17 10:49 90 01/31/17 09:30 Simple Mask 6.00 01/31/17 05:55 97.4 65 16 164/72 Intake and Output 01/30/17 01/30/17 01/31/17 08:00 16:00 00:00 Intake Total 240 ml 1800 ml 1060 ml Output Total 300 ml 350 ml Balance -60 ml 1450 ml 1060 ml Assessment & Plan Problem List: (1) Depression ICD Code: F32.9 Assessment & Plan Estimated LOS: days patient calm cooperative now denies suicidality, compliant medications, for now continue treatment Justification for Cont. Inpt. At this time patient would decompensate in place to the lower level of care Discharge Planning To be determined Problem Qualifiers (1) Depression: Otis Enriquez MD Jan 31, 2017 16:27
[2017-01-31] MEDS ORDERED: METH-759 (18:06)
[2017-01-31 18:28] VITALS: BP 138/64; PULSE 68; RESP 16; TEMP 97.4; O2SAT 95
[2017-01-31 20:50] VITALS: O2SAT 94
[2017-01-31] MEDS: traZODone HCL 100 MG TAB PO SCH (21:00)
[2017-01-31] MEDS: FUROSEMIDE 20 MG/2 ML VIAL IV PUSH SCH (21:00)
[2017-01-31] MEDS: REMOVE OLD NICOTINE PATCH T-DERMAL SCH (21:00)
[2017-01-31] MEDS: TAMSULOSIN HCL 0.4 MG CAP PO SCH (21:00)
[2017-02-01] MEDS: methylPREDNISolone SOD SUCC 40 MG/1 ML VIAL IV PUSH SCH ×6 (01:50→23:20)
[2017-02-01] MEDS: VANCOMYCIN INJ 1,500 MG in SODIUM CHLORID 0.9% 500 ML INJ 500 ML IV SCH ×3 (01:50→14:00)
[2017-02-01] MEDS: PIPERACIL-TAZO 4.5 GM PREMIX 100 ML IV SCH ×4 (05:00→22:29)
[2017-02-01] MEDS: LEVOTHYROXINE SODIUM 200 MCG TAB PO SCH (05:56)
[2017-02-01] MEDS: LEVOTHYROXINE SODIUM 25 MCG TAB PO SCH (05:56)
[2017-02-01] MEDS: INSULIN ASPART SUPPLEMENTAL SCALE SQ SCH ×4 (06:03→20:52)
[2017-02-01 06:07] VITALS: BP 131/65; PULSE 66; RESP 15; TEMP 98.8; O2SAT 98
[2017-02-01 07:20] VITALS: O2SAT 95
[2017-02-01] MEDS: RESP: ALBUTEROL 2.5 MG/IPRATROPIUM 0.5 MG NEB (SCH) NEB ×4 (07:20→20:25)
--- NOTE | 2017-02-01 08:48 | HHI.PYPN ---
Subjective Remarks Patient seen in his room with nurse Delia, chart review, patient with O2 by mask calm quiet cooperative denying suicidality, compliant medications. For now continue treatment Review of Systems Except as stated in HPI: all other systems reviewed are Neg Objective Alert: Yes [place]: Person, Place, Date, Situation Mood: Calm Affect: Euthymic Memory Intact: Immediate, Recent, Remote Hallucinations: Other (he denies) Delusions: No Delusion Type: Other (none elicited) Suicidal: Ideation (he denies) Homicidal: Ideation (he denies) Insight/Judgement Poor Labs Test 01/31/17 19:24 Vancomycin Level Trough 13.2 MCG/ML Vitals/IOs Vital Signs Date Time Temp Pulse Resp B/P Pulse Ox O2 Delivery O2 Flow Rate FiO2 02/01/17 07:20 95 Simple Mask 6.00 02/01/17 06:07 98.8 66 15 131/65 Intake and Output 01/31/17 01/31/17 02/01/17 08:00 16:00 00:00 Intake Total 500 ml 1200 ml 600 ml Output Total 300 ml 325 ml Balance 500 ml 900 ml 275 ml Assessment & Plan Problem List: (1) Major depressive disorder, recurrent episode, in partial remission ICD Code: F33.41 Assessment & Plan Estimated LOS: days patient calm pleasant with me, compliant medications, for now continue treatment Justification for Cont. Inpt. At this time patient will decompensate the placed in a lower level of care Discharge Planning To be determined Otis Enriquez MD Feb 01, 2017 08:48
[2017-02-01] MEDS: INSULIN DETEMIR 100 UNITS/ML VIAL SQ SCH ×2 (09:00→20:46)
[2017-02-01] MEDS: POTASSIUM CHLORIDE 10 MEQ CONTROLLED RELEASE TAB PO SCH (09:06)
[2017-02-01] MEDS: clonazePAM 0.5 MG TAB PO SCH ×2 (09:07→20:45)
[2017-02-01] MEDS: RIVAROXABAN 20 MG TAB PO SCH (09:07)
[2017-02-01] MEDS: VENLAFAXINE HCL XR 37.5 MG CAP PO SCH (09:07)
[2017-02-01] MEDS: DILTIAZEM-CD 240 MG CAP ER PO SCH ×2 (09:07→20:45)
[2017-02-01] MEDS: PANTOPRAZOLE SOD 40 MG DELAYED RELEASE TAB PO SCH (09:07)
[2017-02-01] MEDS: DOCUSATE SODIUM 100 MG CAP PO SCH ×2 (09:07→20:45)
[2017-02-01] MEDS: AMIODARONE 200 MG TAB PO SCH ×2 (09:08→20:45)
[2017-02-01] MEDS: POLYETHYLENE GLYCOL 17 GM PKG PO SCH (09:08)
[2017-02-01] MEDS: NICOTINE 21 MG/24 HR PATCH T-DERMAL SCH (09:15)
[2017-02-01] MEDS: INSULIN ASPART 1,000 UNITS/10 ML VIAL SQ SCH ×3 (09:18→17:51)
[2017-02-01] MEDS: FUROSEMIDE 20 MG/2 ML VIAL IV PUSH SCH ×2 (09:21→20:45)
[2017-02-01 09:51] LABS: AUTOMATED NEUTROPHIL # 13.4 TH/MM3 (1.8-7.7); BASOPHIL % 0.3 % (0.0-2.0); HEMATOCRIT 36.4 % (39.0-51.0); HEMO FLAGS DIFF FINAL; LYMPH % 1.2 % (9.0-44.0); LYMPHOCYTE # 0.2 TH/MM3 (1.0-4.8); MEAN CELL VOLUME 84.1 FL (80.0-100.0); MEAN CORPUSCULAR HEMOGLOBIN 27.5 PG (27.0-34.0); MEAN CORPUSCULAR HGB CONC 32.7 % (32.0-36.0); MONO % 2.8 % (0.0-8.0); NEUT % 95.7 % (16.0-70.0); PLATELET COUNT 198 TH/MM3 (150-450); RED BLOOD COUNT 4.33 MIL/MM3 (4.50-5.90); RED CELL DISTRIBUTION WIDTH 17.3 % (11.6-17.2)
[2017-02-01 10:05] LABS: BICARBONATE 43.3 MEQ/L (21.0-32.0); POTASSIUM 3.5 MEQ/L (3.5-5.1)
[2017-02-01 11:29] VITALS: BP 137/61; PULSE 61; RESP 16; TEMP 97.9
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
[2017-02-01] MEDS: MORPHINE SULFATE 30 MG TAB PO PRN ×2 (15:14→21:09)
[2017-02-01 17:50] VITALS: BP 163/75; PULSE 60; RESP 16; TEMP 97.2
[2017-02-01 20:25] VITALS: O2SAT 94
[2017-02-01] MEDS: TAMSULOSIN HCL 0.4 MG CAP PO SCH (20:45)
[2017-02-01] MEDS: traZODone HCL 100 MG TAB PO SCH (20:45)
[2017-02-01] MEDS: REMOVE OLD NICOTINE PATCH T-DERMAL SCH (20:50)
[2017-02-02] MEDS: LORazepam 0.5 MG TAB age > 65 yrs PO PRN (00:44)
[2017-02-02] MEDS: VANCOMYCIN INJ 1,500 MG in SODIUM CHLORID 0.9% 500 ML INJ 500 ML IV SCH (01:45)
[2017-02-02] MEDS: PIPERACIL-TAZO 4.5 GM PREMIX 100 ML IV SCH (04:23)
[2017-02-02] MEDS: LEVOTHYROXINE SODIUM 200 MCG TAB PO SCH (05:27)
[2017-02-02] MEDS: methylPREDNISolone SOD SUCC 40 MG/1 ML VIAL IV PUSH SCH (05:27)
[2017-02-02] MEDS: LEVOTHYROXINE SODIUM 25 MCG TAB PO SCH (05:27)
[2017-02-02 05:58] VITALS: BP 150/69; PULSE 61; RESP 15; TEMP 97.5; O2SAT 97
[2017-02-02] MEDS: INSULIN ASPART SUPPLEMENTAL SCALE SQ SCH ×4 (06:05→21:14)
[2017-02-02] MEDS: RESP: ALBUTEROL 2.5 MG/IPRATROPIUM 0.5 MG NEB (SCH) NEB ×4 (07:26→20:30)
[2017-02-02 07:27] VITALS: O2SAT 97
[2017-02-02 08:40] LABS: AUTOMATED NEUTROPHIL # 12.9 TH/MM3 (1.8-7.7); BASOPHIL # 0.1 TH/MM3 (0-0.2); BASOPHIL % 0.9 % (0.0-2.0); EOSINOPHIL % 0.1 % (0.0-4.0); HEMATOCRIT 37.5 % (39.0-51.0); HEMO FLAGS DIFF FINAL; LYMPH % 1.3 % (9.0-44.0); LYMPHOCYTE # 0.2 TH/MM3 (1.0-4.8); MEAN CELL VOLUME 82.7 FL (80.0-100.0); MEAN CORPUSCULAR HEMOGLOBIN 27.4 PG (27.0-34.0); MEAN CORPUSCULAR HGB CONC 33.2 % (32.0-36.0); MONO % 2.2 % (0.0-8.0); NEUT % 95.5 % (16.0-70.0); PLATELET COUNT 194 TH/MM3 (150-450); RED BLOOD COUNT 4.53 MIL/MM3 (4.50-5.90); RED CELL DISTRIBUTION WIDTH 17.8 % (11.6-17.2); WHITE BLOOD COUNT 13.5 TH/MM3 (4.0-11.0)
[2017-02-02 08:55] LABS: BICARBONATE 42.6 MEQ/L (21.0-32.0); MAGNESIUM 2.1 MG/DL (1.5-2.5); POTASSIUM 3.5 MEQ/L (3.5-5.1)
[2017-02-02] MEDS: RIVAROXABAN 20 MG TAB PO SCH (09:00)
[2017-02-02] MEDS: POLYETHYLENE GLYCOL 17 GM PKG PO SCH (09:00)
[2017-02-02] MEDS: NICOTINE 21 MG/24 HR PATCH T-DERMAL SCH (09:00)
[2017-02-02] MEDS: AMIODARONE 200 MG TAB PO SCH ×2 (09:00→21:13)
[2017-02-02] MEDS: DILTIAZEM-CD 240 MG CAP ER PO SCH ×2 (09:00→21:12)
[2017-02-02] MEDS: PANTOPRAZOLE SOD 40 MG DELAYED RELEASE TAB PO SCH (09:00)
[2017-02-02] MEDS: VENLAFAXINE HCL XR 37.5 MG CAP PO SCH (09:00)
[2017-02-02] MEDS: clonazePAM 0.5 MG TAB PO SCH ×2 (09:00→21:13)
[2017-02-02] MEDS: FUROSEMIDE 20 MG/2 ML VIAL IV PUSH SCH ×2 (09:00→21:12)
[2017-02-02] MEDS: INSULIN DETEMIR 100 UNITS/ML VIAL SQ SCH ×2 (09:00→21:14)
[2017-02-02] MEDS: POTASSIUM CHLORIDE 10 MEQ CONTROLLED RELEASE TAB PO SCH (09:00)
[2017-02-02] MEDS: DOCUSATE SODIUM 100 MG CAP PO SCH ×2 (09:00→21:13)
[2017-02-02] MEDS: INSULIN ASPART 1,000 UNITS/10 ML VIAL SQ SCH ×3 (09:30→18:30)
--- NOTE | 2017-02-02 10:11 | HHI.PYPN ---
Subjective Remarks Patient was seen today for psychiatric follow-up, his case was discussed widely in treatment team with CHARLES Hawk, Nurses Juan and Joya and also with Therapist Derek, on psychiatric evaluation today patient endorses low energy, difficulty breathing, fatigue, moments of sadness, but at the same time, he says that he is positive, he is motivated to get better and to continue the medical recommendations and treatment. He knows that he has a long way to go fighting with the cancer, he was explained about how difficult it could be, but at the same time he feels that he has to be strong for himself, his and his kids. At this moment the patient denies suicidal ideation, he denies homicidal ideation, he denies visual and auditory hallucinations. Patient has some moments of confusion, but he does not seem to be delirious, he is oriented 3. Fully compliant with medications, no significant side effects. Review of Systems Other No additional somatic complaints today Objective Alert: Yes [place]: Person, Place, Date, Situation Mood: Calm Affect: Euthymic Memory Intact: Immediate, Recent, Remote Hallucinations: Other (he denies) Delusions: No Delusion Type: Other (none elicited) Suicidal: Ideation (he denies) Homicidal: Ideation (he denies) Insight/Judgement fair Labs Test 02/02/17 07:45 White Blood Count 13.5 TH/MM3 Red Blood Count 4.53 MIL/MM3 Hemoglobin 12.4 GM/DL Hematocrit 37.5 % Mean Corpuscular Volume 82.7 FL Mean Corpuscular Hemoglobin 27.4 PG Mean Corpuscular Hemoglobin 33.2 % Concent Red Cell Distribution Width 17.8 % Platelet Count 194 TH/MM3 Mean Platelet Volume 8.5 FL Neutrophils (%) (Auto) 95.5 % Lymphocytes (%) (Auto) 1.3 % Monocytes (%) (Auto) 2.2 % Eosinophils (%) (Auto) 0.1 % Basophils (%) (Auto) 0.9 % Neutrophils # (Auto) 12.9 TH/MM3 Lymphocytes # (Auto) 0.2 TH/MM3 Monocytes # (Auto) 0.3 TH/MM3 Eosinophils # (Auto) 0.0 TH/MM3 Basophils # (Auto) 0.1 TH/MM3 CBC Comment DIFF FINAL Differential Comment Hematology Comments Sodium Level 138 MEQ/L Potassium Level 3.5 MEQ/L Chloride Level 91 MEQ/L Carbon Dioxide Level 42.6 MEQ/L Anion Gap 4 MEQ/L Blood Urea Nitrogen 30 MG/DL Creatinine 0.66 MG/DL Estimat Glomerular Filtration 118 ML/MIN Rate Random Glucose 206 MG/DL Calcium Level 8.4 MG/DL Magnesium Level 2.1 MG/DL Vitals/IOs Vital Signs Date Time Temp Pulse Resp B/P Pulse Ox O2 Delivery O2 Flow Rate FiO2 02/02/17 10:05 90 Simple Mask 3.50 02/02/17 05:58 97.5 61 15 150/69 Intake and Output 02/01/17 02/01/17 02/02/17 08:00 16:00 00:00 Intake Total 360 ml 360 ml 480 ml Output Total 750 ml 500 ml Balance -390 ml 360 ml -20 ml Assessment & Plan Problem List: (1) Major depressive disorder, recurrent episode, in partial remission Assessment & Plan: Will increase Effexor to 150 mg daily for depressive symptoms. Support, motivation psycho education provided. ICD Code: F33.41 Assessment & Plan Estimated LOS: days Justification for Cont. Inpt. Patient has a very high possibility to compensate psychiatrically and has a very high suicidal risk at this moment, he needs to continue psychiatric hospitalization for stabilization and safety. Olayinka Arriaza MD Feb 02, 2017 10:11
--- NOTE | 2017-02-02 14:30 | RADRPT ---
EXAM DATE/TIME: 02/02/2017 11:54 [facility] COMPARISON: No previous studies available for comparison. INDICATIONS : Right arm swelling. MEDICAL HISTORY : Hypertension. Chronic obstructive pulmonary disease. Gastroesophageal reflux disease. Thyroid disease . Anticoagulant therapy, Xarelto. Atrial fibrillation. Gastroparesis. SURGICAL HISTORY : Cholecystectomy. Neurologic surgery, right leg. Cardiac ablation. Cardiac cathetrization. Orthopa edic; left shoulder. ENCOUNTER: Subsequent ACUITY: 1 week PAIN SCORE: 1/10 LOCATION: Right arm. FINDINGS: There is occlusive thrombus in the mid and distal cephalic vein. The deep venous system of the arm i s patent. CONCLUSION: Cephalic vein thromboses that does not extend into the axillary vein. Henry Sims MD FACR on February 02, 2017 at 14:28 Board Certified Radiologist. This report was verified electronically.
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
[2017-02-02] MEDS: MORPHINE SULFATE 30 MG TAB PO PRN (16:59)
[2017-02-02 17:34] VITALS: BP 147/65; PULSE 66; RESP 18; TEMP 97.8; O2SAT 92
[2017-02-02 17:35] VITALS: O2SAT 85
--- NOTE | 2017-02-02 19:49 | RC ---
cc: KETTY CASAS M.D. DATE OF SERVICE 02/02/2017 DATE OF 1940 HISTORY This gentleman has been hospitalized for a suicide attempt. 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 He appears to have some minor swallowing disorder but he has not lost weight. I have advised both he and his that his options include surgery, which I do not recommend, and radiation treatment. His indicates that he is extremely claustrophobic but I have told him we would give him Ativan for the treatment which seems to help most patients with claustrophobia. She asked about surgery and I have told her that we would have to refer her to either [facility] or the [facility] where they have surgeons who would consider the surgery, although I am not sure if they would recommend it. As well Dr. Gaming has written a note in the chart regarding this gentleman and I have advised her to speak with him. I have attempted to get him on the telephone and ask him to give her a call but their office is closed at the moment, so I will attempt that tomorrow. She has indicated she will discuss this further with him and hopefully make a decision. We would be in a position to coordinate a simulation even while he is in the hospital if this is amenable to his attending physician. It would take us 7-10 days to be ready to start treatment and we would still prefer an outpatient PET scan to be sure that we are treating all of his disease. This was discussed with her in detail as well. She promises to contact us when she has more information about his willingness. Ketty Casas MD Radiation Oncologist CARINE/LAVERN /4:13 PM /7:42 PM
[2017-02-02] MEDS: REMOVE OLD NICOTINE PATCH T-DERMAL SCH (21:00)
[2017-02-02 21:12] VITALS: O2SAT 96
[2017-02-02] MEDS: predniSONE 20 MG TAB PO SCH (21:13)
[2017-02-02] MEDS: traZODone HCL 100 MG TAB PO SCH (21:13)
[2017-02-02] MEDS: TAMSULOSIN HCL 0.4 MG CAP PO SCH (21:13)
[2017-02-02] MEDS: ACETAMINOPHEN 325 MG TAB PO PRN (21:29)
[2017-02-03 06:07] VITALS: BP 143/65; PULSE 62; RESP 15; TEMP 97.5; O2SAT 99
[2017-02-03] MEDS: LEVOTHYROXINE SODIUM 25 MCG TAB PO SCH (06:07)
[2017-02-03] MEDS: LEVOTHYROXINE SODIUM 200 MCG TAB PO SCH (06:07)
[2017-02-03] MEDS: MORPHINE SULFATE 30 MG TAB PO PRN ×2 (06:07→16:30)
[2017-02-03] MEDS: INSULIN ASPART SUPPLEMENTAL SCALE SQ SCH ×4 (06:35→21:11)
[2017-02-03 07:42] VITALS: O2SAT 94
[2017-02-03] MEDS: RESP: ALBUTEROL 2.5 MG/IPRATROPIUM 0.5 MG NEB (SCH) NEB ×4 (07:42→19:40)
[2017-02-03] MEDS: PANTOPRAZOLE SOD 40 MG DELAYED RELEASE TAB PO SCH (08:54)
[2017-02-03] MEDS: POLYETHYLENE GLYCOL 17 GM PKG PO SCH (08:55)
[2017-02-03] MEDS: FUROSEMIDE 20 MG/2 ML VIAL IV PUSH SCH (08:55)
[2017-02-03] MEDS: VENLAFAXINE HCL XR 75 MG CAP PO SCH (08:55)
[2017-02-03] MEDS: DOCUSATE SODIUM 100 MG CAP PO SCH ×2 (08:55→21:01)
[2017-02-03] MEDS: RIVAROXABAN 20 MG TAB PO SCH (08:55)
[2017-02-03] MEDS: NICOTINE 21 MG/24 HR PATCH T-DERMAL SCH (08:55)
[2017-02-03] MEDS: INSULIN ASPART 1,000 UNITS/10 ML VIAL SQ SCH ×3 (08:56→17:17)
[2017-02-03] MEDS: DILTIAZEM-CD 240 MG CAP ER PO SCH ×2 (08:56→21:00)
[2017-02-03] MEDS: predniSONE 20 MG TAB PO SCH ×2 (08:56→21:01)
[2017-02-03] MEDS: POTASSIUM CHLORIDE 10 MEQ CONTROLLED RELEASE TAB PO SCH (08:56)
[2017-02-03] MEDS: AMIODARONE 200 MG TAB PO SCH ×2 (08:56→21:00)
[2017-02-03] MEDS: INSULIN DETEMIR 100 UNITS/ML VIAL SQ SCH ×2 (08:58→21:12)
[2017-02-03] MEDS: clonazePAM 0.5 MG TAB PO SCH ×2 (08:58→21:01)
--- NOTE | 2017-02-03 10:29 | RADRPT ---
EXAM DATE/TIME: 02/03/2017 09:32 [facility] COMPARISON: CHEST SINGLE AP, January 31, 2017, 8:37. INDICATIONS : Evaluate for pleural effusion. MEDICAL HISTORY : Chronic obstructive pulmonary disease. SURGICAL HISTORY : None. Left shoulder surgery. ENCOUNTER: Subsequent ACUITY: 4 - 6 days PAIN SCORE: 0/10 LOCATION: Bilateral chest FINDINGS: Portable AP view of the chest demonstrates a normal-sized cardiac silhouette. There are persistent bi basilar pleural-parenchymal opacities, improved on the right and not significantly changed in the lef t. No pneumothorax is visualized. CONCLUSION: 1. Right basilar pleural-parenchymal opacity has improved and there is likely residual atelectasis an d/or airspace consolidation at the right base. 2. Persistent small left pleural effusion with associative volume loss and/or consolidation. Otis Peterson MD on February 03, 2017 at 10:22 Board Certified Radiologist. This report was verified electronically.
--- NOTE | 2017-02-03 11:28 | HHI.PYPN ---
Subjective Remarks Today patient reports to be in a good mood, he says he is motivated to continue getting better, being discharged back home soon and meeting with staff and to decide about "the way to go with the cancer". He denies suicidal or homicidal ideation, he denies visual and auditory hallucinations.. Patient has showed a good response to psychotropics/psychotherapy. No reported side effects. Review of Systems Other No somatic complaints at this point Objective Alert: Yes [place]: Person, Place, Date, Situation Mood: Calm Affect: Euthymic Memory Intact: Immediate, Recent, Remote Hallucinations: Other (he denies) Delusions: No Delusion Type: Other (none elicited) Suicidal: Ideation (he denies) Homicidal: Ideation (he denies) Insight/Judgement good Vitals/IOs Vital Signs Date Time Temp Pulse Resp B/P Pulse Ox O2 Delivery O2 Flow Rate FiO2 02/03/17 07:42 94 Nasal Cannula 4.00 02/03/17 06:07 97.5 62 15 143/65 02/02/17 17:35 31 Intake and Output 02/02/17 02/02/17 02/03/17 08:00 16:00 00:00 Intake Total 240 ml 720 ml 640 ml Output Total 400 ml 200 ml Balance 240 ml 320 ml 440 ml Assessment & Plan Problem List: (1) Major depressive disorder, recurrent episode, in partial remission Assessment & Plan: Continue current psychotropics Patient can now be transferred back to medical floor to continue medical treatment was advised/oriented about engaging the patient in psychiatric care through the [place] Extensive support, motivation psycho education provided ICD Code: F33.41 Assessment & Plan Estimated LOS: days Justification for Cont. Inpt. Patient will be transferred today to the medical floor to continue medical treatment Olayinka Arriaza MD Feb 03, 2017 11:28
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
[2017-02-03] MEDS: TORSEMIDE 20 MG TAB PO SCH (17:31)
[2017-02-03 17:51] VITALS: BP 140/65; PULSE 66; RESP 16; TEMP 97.8; O2SAT 93
[2017-02-03] MEDS: REMOVE OLD NICOTINE PATCH T-DERMAL SCH (21:00)
[2017-02-03] MEDS: TAMSULOSIN HCL 0.4 MG CAP PO SCH (21:00)
[2017-02-03] MEDS: traZODone HCL 100 MG TAB PO SCH (21:01)
[2017-02-03] MEDS: ACETAMINOPHEN 325 MG TAB PO PRN (21:01)
[2017-02-04] MEDS: LEVOTHYROXINE SODIUM 200 MCG TAB PO SCH (05:00)
[2017-02-04] MEDS: MORPHINE SULFATE 30 MG TAB PO PRN ×2 (05:01→12:21)
[2017-02-04] MEDS: LEVOTHYROXINE SODIUM 25 MCG TAB PO SCH (05:01)
[2017-02-04 05:06] VITALS: BP 170/79; PULSE 72; RESP 16; TEMP 97.6; O2SAT 90
[2017-02-04] MEDS: INSULIN ASPART SUPPLEMENTAL SCALE SQ SCH ×4 (06:25→21:13)
[2017-02-04 07:24] VITALS: O2SAT 92
[2017-02-04] MEDS: RESP: ALBUTEROL 2.5 MG/IPRATROPIUM 0.5 MG NEB (SCH) NEB ×4 (07:24→19:23)
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
[2017-02-04] MEDS: DOCUSATE SODIUM 100 MG CAP PO SCH ×2 (08:51→21:12)
[2017-02-04] MEDS: PANTOPRAZOLE SOD 40 MG DELAYED RELEASE TAB PO SCH (08:51)
[2017-02-04] MEDS: RIVAROXABAN 20 MG TAB PO SCH (08:53)
[2017-02-04] MEDS: predniSONE 20 MG TAB PO SCH ×2 (08:53→21:12)
[2017-02-04] MEDS: clonazePAM 0.5 MG TAB PO SCH ×2 (08:53→21:12)
[2017-02-04] MEDS: DILTIAZEM-CD 240 MG CAP ER PO SCH ×2 (08:53→21:12)
[2017-02-04] MEDS: POTASSIUM CHLORIDE 10 MEQ CONTROLLED RELEASE TAB PO SCH (08:53)
[2017-02-04] MEDS: POLYETHYLENE GLYCOL 17 GM PKG PO SCH (08:55)
[2017-02-04] MEDS: TORSEMIDE 20 MG TAB PO SCH ×2 (08:56→18:23)
[2017-02-04] MEDS: NICOTINE 21 MG/24 HR PATCH T-DERMAL SCH (08:56)
[2017-02-04] MEDS: VENLAFAXINE HCL XR 75 MG CAP PO SCH (08:58)
[2017-02-04] MEDS: AMIODARONE 200 MG TAB PO SCH ×2 (08:58→21:12)
[2017-02-04] MEDS: INSULIN DETEMIR 100 UNITS/ML VIAL SQ SCH ×2 (09:09→21:13)
[2017-02-04] MEDS: INSULIN ASPART 1,000 UNITS/10 ML VIAL SQ SCH ×3 (09:30→18:14)
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
[2017-02-04 12:38] VITALS: BP 170/79; PULSE 72; RESP 16; TEMP 96.7; O2SAT 93
[2017-02-04] MEDS: amLODIPine BESYLATE 5 MG TAB PO SCH (13:00)
--- NOTE | 2017-02-04 13:45 | HHI.PYPN ---
Subjective Remarks Patient was seen today for psychiatric evaluation, patient reports good mood, he stated that he has decided along with his and his family that he would pursue radiation for throat tumor. Patient says that he is motivated and has the inner energy to fight for his life, even though he feels weak physically "but I would make it". He denies depressive symptoms, he denies anxiety, he denies perceptual disturbances and bill, he denies suicidal or homicidal ideation, he denies visual and auditory hallucinations. Patient is fully oriented 3, no gross cognitive impairment observed. Since the patient is psychiatrically stable we have contacted oncology and medicine to try to transfer the patient to the floor. Review of Systems Other No somatic complaints Objective Alert: Yes [place]: Person, Place, Date, Situation Mood: Calm Affect: Euthymic Memory Intact: Immediate, Recent, Remote Hallucinations: Other (he denies) Delusions: No Delusion Type: Other (none elicited) Suicidal: Ideation (he denies) Homicidal: Ideation (he denies) Insight/Judgement good Vitals/IOs Vital Signs Date Time Temp Pulse Resp B/P Pulse Ox O2 Delivery O2 Flow Rate FiO2 02/04/17 12:38 96.7 72 16 170/79 93 02/04/17 11:36 Simple Mask 6.00 02/02/17 17:35 31 Intake and Output 02/03/17 02/03/17 02/04/17 08:00 16:00 00:00 Intake Total 40 ml 970 ml 720 ml Output Total 500 ml 225 ml 600 ml Balance -460 ml 745 ml 120 ml Assessment & Plan Problem List: (1) Major depressive disorder, recurrent episode, in partial remission ICD Code: F33.41 Assessment & Plan Estimated LOS: days Justification for Cont. Inpt. Working in the coordination of a safe discharge. Olayinka Arriaza MD Feb 04, 2017 13:45
--- NOTE | 2017-02-04 13:56 | PQ ---
Physician Query Response Document PATIENT: CAROLYN GARCÍA : 1940 ADMIT DATE: 01/28/2017 3:35 PM DISCH DATE: RESPONDING PROVIDER #: parminder QUERY TEXT: CHF Acuity and Type Congestive Heart Failure is documented in the Medical Record. Please document the type and acuity (in cludes probable or suspected) Such as: Type: -- Systolic -- Diastolic -- Combined -- Other, please specify Acuity: -- Acute -- Chronic -- Acute on chronic -- Other, please specify Also please document the underlying cause of the CHF (includes probable or suspected) The patient's Clinical Indicators include: Progress note from 02/04 states: HF, chronic Stable. - Episode of congestion and HALICAT was called, lasix IV 20mg given - CXR showed Small to moderate size right pleural effusion with associated compressive atelectasis an d/or consolidation. The pleural effusion has increased from the prior examination. 2. Stable small le ft basilar pleural-parenchymal opacity likely representing a very small volume of pleural fluid with associated air space consolidation. Echocardiogram from 12/14/16: Left Ventrical Systolic function was at lower limits of normal. The est imated ejection fraction was 50-55% BMP from 11/17/16: 234 12/12/16 Troponin: 0.02 Chest x-ray from 12/16/16: heart minimally enlarged If you have any questions please call the [facility] helpline at ext. [phone] (Maurice Copeland RN) Query created by: Maurice Copeland on 02/04/2017 12:35 PM RESPONSE TEXT: Acute diastolic congestive heart failure. Electronically signed by: Shivam Campoverde DO 02/04/2017 1:52 PM
[2017-02-04] MEDS: LIDOCAINE HCL 5% PATCH TD SCH (16:45)
[2017-02-04 16:56] LABS: BLOOD GAS BASE EXCESS 17.9 mmol/L (-2-2); BLOOD GAS CARBOXYHEMOGLOBIN 2.4 % (0-4); BLOOD GAS HCO3 43 mmol/L (22-26); BLOOD GAS METHEMOGLOBIN 1.3 % (0-2); BLOOD GAS O2 HGB SATURATION 87 % (90-100); BLOOD GAS OXYGEN CONTENT 15.9 Vol % (12.0-20.0); BLOOD GAS PCO2 51 mmHg (38-42); BLOOD GAS PO2 57 mmHg (61-120); CRITICAL VALUE YES; TEMP CORR TO 98.6
[2017-02-04 16:57] LABS: DRAW SITE RT RADIAL; LITER FLOW 4 L/M; NUMBER OF ARTERIAL PUNCTURES 1; OXYGEN DEVICE NASAL CANNULA; STAT NO
[2017-02-04 18:28] VITALS: BP 137/65; PULSE 75; RESP 18; TEMP 97.8; O2SAT 94
[2017-02-04 19:23] VITALS: O2SAT 91
--- NOTE | 2017-02-04 20:51 | RADRPT ---
EXAM DATE/TIME: 02/04/2017 20:26 [facility] COMPARISON: CHEST SINGLE AP, February 03, 2017, 9:32. INDICATIONS : Shortness of breath; evaluate for pulmonary disease. RADIATION DOSE: 9.89 CTDIvol (mGy) MEDICAL HISTORY : Cardiovascular disease. Hypertension. Carcinoma, not otherwise specified. SURGICAL HISTORY : None. ENCOUNTER: Initial ACUITY: 1 day PAIN SCALE: 0/10 LOCATION: chest TECHNIQUE: Volumetric scanning of the chest was performed. Using automated exposure control and adjustment of t he mA and/or kV according to patient size, radiation dose was kept as low as reasonably achievable to obtain optimal diagnostic quality images. FINDINGS: LUNGS: There is bibasilar consolidation. Minimal scattered groundglass densities in the upper lobes. PLEURAE: There is moderate right pleural effusion. Small left pleural effusion with some fluid tracking in the left major fissure MEDIASTINUM: The heart and great vessels demonstrate no acute abnormality. Scattered small mediastinal lymph node s. Coronary artery calcifications. AXILLAE: Within normal limits. No lymphadenopathy. MUSCULOSKELETAL: Within normal limits for patient age. MISCELLANEOUS: The visualized upper abdominal organs demonstrate no acute abnormality. CONCLUSION: 1. Bibasilar consolidation and minimal patchy groundglass densities in the upper lobes. 2. Moderate right and small left pleural effusion. Mateo Thomas MD on February 04, 2017 at 20:48 Board Certified Radiologist. This report was verified electronically.
[2017-02-04] MEDS: REMOVE OLD NICOTINE PATCH T-DERMAL SCH (21:00)
[2017-02-04] MEDS ORDERED: REMOVE OLD PATCH T-DERMAL SCH (21:00)
[2017-02-04] MEDS: TAMSULOSIN HCL 0.4 MG CAP PO SCH (21:12)
[2017-02-04] MEDS: traZODone HCL 100 MG TAB PO SCH (21:12)
[2017-02-04] MEDS: ACETAMINOPHEN 325 MG TAB PO PRN (21:14)
[2017-02-05 05:56] VITALS: BP 146/68; PULSE 75; RESP 18; TEMP 98; O2SAT 90
[2017-02-05] MEDS: LEVOTHYROXINE SODIUM 25 MCG TAB PO SCH (06:21)
[2017-02-05] MEDS: MORPHINE SULFATE 30 MG TAB PO PRN (06:21)
[2017-02-05] MEDS: LEVOTHYROXINE SODIUM 200 MCG TAB PO SCH (06:21)
[2017-02-05] MEDS: INSULIN ASPART SUPPLEMENTAL SCALE SQ SCH (06:22)
[2017-02-05] MEDS: RESP: ALBUTEROL 2.5 MG/IPRATROPIUM 0.5 MG NEB (SCH) NEB (07:22)
[2017-02-05 07:23] VITALS: O2SAT 90
[2017-02-05] MEDS: POTASSIUM CHLORIDE 10 MEQ CONTROLLED RELEASE TAB PO SCH (08:47)
[2017-02-05] MEDS: VENLAFAXINE HCL XR 75 MG CAP PO SCH (08:47)
[2017-02-05] MEDS: predniSONE 20 MG TAB PO SCH (08:47)
[2017-02-05] MEDS: DOCUSATE SODIUM 100 MG CAP PO SCH (08:47)
[2017-02-05] MEDS: AMIODARONE 200 MG TAB PO SCH (08:47)
[2017-02-05] MEDS: clonazePAM 0.5 MG TAB PO SCH (08:47)
[2017-02-05] MEDS: RIVAROXABAN 20 MG TAB PO SCH (08:47)
[2017-02-05] MEDS: NICOTINE 21 MG/24 HR PATCH T-DERMAL SCH (08:48)
[2017-02-05] MEDS: TORSEMIDE 20 MG TAB PO SCH (08:48)
[2017-02-05] MEDS: LIDOCAINE HCL 5% PATCH TD SCH (08:48)
[2017-02-05] MEDS: POLYETHYLENE GLYCOL 17 GM PKG PO SCH (08:48)
[2017-02-05] MEDS: PANTOPRAZOLE SOD 40 MG DELAYED RELEASE TAB PO SCH (08:48)
[2017-02-05] MEDS: INSULIN ASPART 1,000 UNITS/10 ML VIAL SQ SCH (08:49)
[2017-02-05] MEDS: amLODIPine BESYLATE 5 MG TAB PO SCH (08:49)
[2017-02-05] MEDS: INSULIN DETEMIR 100 UNITS/ML VIAL SQ SCH (08:49)
[2017-02-05] MEDS: DILTIAZEM-CD 240 MG CAP ER PO SCH (08:52)
--- NOTE | 2017-02-05 09:40 | HHI.PYPN ---
Subjective Remarks Patient was seen today for psychiatric reevaluation, he was found eating his breakfast in the bed, with a much brighter affect and yesterday, he reports good mood, good level of energy, good appetite, good sleep at night, patient stated that he is motivated to start his radiation therapy and get better, however he shares his concerns of going back home and not having sufficient help to take care of himself. 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 He denies suicidal or homicidal ideation, he denies visual and auditory hallucinations. Patient is oriented 3, no gross cognitive impairment, no attention deficit observed. Review of Systems Other No somatic complaints Objective Alert: Yes Lam[place]: Person, Place, Date, Situation Mood: Calm Affect: Euthymic Memory Intact: Immediate, Recent, Remote Hallucinations: Other (he denies) Delusions: No Delusion Type: Other (none elicited) Suicidal: Ideation (he denies) Homicidal: Ideation (he denies) Insight/Judgement good Labs Test 02/04/17 16:46 Blood Gas Puncture Site RT RADIAL Blood Gas Patient Temperature 98.6 Blood Gas HCO3 43 mmol/L Blood Gas Base Excess 17.9 mmol/L Blood Gas Oxygen Saturation 87 % Arterial Blood pH 7.53 Arterial Blood Partial 51 mmHg Pressure CO2 Arterial Blood Partial 57 mmHg Pressure O2 Arterial Blood Oxygen Content 15.9 Vol % Arterial Blood 2.4 % Carboxyhemoglobin Arterial Blood Methemoglobin 1.3 % Blood Gas Hemoglobin 13.0 G/DL Oxygen Delivery Device NASAL CANNULA Blood Gas Liter Flow 4 L/M Vitals/IOs Vital Signs Date Time Temp Pulse Resp B/P Pulse Ox O2 Delivery O2 Flow Rate FiO2 02/05/17 07:23 90 Nasal Cannula 2.00 02/05/17 05:56 98.0 75 18 146/68 02/02/17 17:35 31 Intake and Output 02/04/17 02/04/17 02/05/17 08:00 16:00 00:00 Intake Total 480 ml 480 ml 840 ml Output Total 850 ml 300 ml 825 ml Balance -370 ml 180 ml 15 ml Assessment & Plan Problem List: (1) Major depressive disorder, recurrent episode, in partial remission Assessment & Plan: Will increase Effexor to 225. ICD Code: F33.41 Assessment & Plan Estimated LOS: days Justification for Cont. Inpt. Working in the coordination of a safe discharge. Olayinka Arriaza MD Feb 05, 2017 09:40
[2017-02-05 11:15] VITALS: BP 130/68; PULSE 76; RESP 20; TEMP 98.2; O2SAT 93
[2017-02-05 11:31] LABS: BLOOD GAS BASE EXCESS 13.6 mmol/L (-2-2); BLOOD GAS CARBOXYHEMOGLOBIN 2.5 % (0-4); BLOOD GAS HCO3 37 mmol/L (22-26); BLOOD GAS METHEMOGLOBIN 1.2 % (0-2); BLOOD GAS O2 HGB SATURATION 89 % (90-100); BLOOD GAS OXYGEN CONTENT 16.7 Vol % (12.0-20.0); BLOOD GAS PCO2 44 mmHg (38-42); BLOOD GAS PO2 63 mmHg (61-120); BLOOD GAS TOTAL HGB 13.3 G/DL (12.0-16.0); TEMP CORR TO 98.6
[2017-02-05 11:32] LABS: CRITICAL VALUE YES; DRAW SITE LT BRACHIAL; FIO2 36 %; LITER FLOW 4 L/M; NUMBER OF ARTERIAL PUNCTURES 1; OXYGEN DEVICE NASAL CANNULA; STAT YES
[2017-02-05 12:08] LABS: AUTOMATED NEUTROPHIL # 10.6 TH/MM3 (1.8-7.7); BASOPHIL % 0.4 % (0.0-2.0); EOSINOPHIL % 0.1 % (0.0-4.0); HEMATOCRIT 39.2 % (39.0-51.0); LYMPH % 3.8 % (9.0-44.0); LYMPHOCYTE # 0.5 TH/MM3 (1.0-4.8); MEAN CELL VOLUME 82.8 FL (80.0-100.0); MEAN CORPUSCULAR HEMOGLOBIN 27.6 PG (27.0-34.0); MEAN CORPUSCULAR HGB CONC 33.4 % (32.0-36.0); MONO % 9.7 % (0.0-8.0); PLATELET COUNT 217 TH/MM3 (150-450); RED BLOOD COUNT 4.73 MIL/MM3 (4.50-5.90); RED CELL DISTRIBUTION WIDTH 17.6 % (11.6-17.2); WHITE BLOOD COUNT 12.3 TH/MM3 (4.0-11.0)
[2017-02-05 12:11] LABS: HEMO FLAGS AUTO DIFF
[2017-02-05 12:32] LABS: ALT (GPT) 48 U/L (12-78); ANION GAP 7 MEQ/L (5-15); AST (GOT) 22 U/L (15-37); BICARBONATE 40.7 MEQ/L (21.0-32.0); BLOOD UREA NITROGEN 29 MG/DL (7-18); CHLORIDE 90 MEQ/L (98-107); GLOMERULAR FILTRATION RATE 70 ML/MIN (>89); POTASSIUM 4.1 MEQ/L (3.5-5.1); SODIUM (NA) 138 MEQ/L (136-145)
[2017-02-05 12:34] LABS: ALKALINE PHOSPHATASE 73 U/L (45-117); TOTAL BILIRUBIN ADULT 0.6 MG/DL (0.2-1.0)
[2017-02-05 12:47] LABS: BANDS 7 % (0-6); METAMYELOCYTES 1 % (0-1); NEUTROPHIL # MANUAL DIFF 10.2 TH/MM3 (1.8-7.7); POLYS (SEG NEUTROPHILS) 75 % (16-70); WBC DIFF SAMPLE 100
[2017-02-05 12:48] LABS: BURR CELLS 1+ (NORMAL); OVALOCYTES 1+ (NORMAL); PLATELET ESTIMATE SMEAR NORMAL (NORMAL); PLATELET MORPHOLOGY NORMAL (NORMAL); SCAN/DIFF FINAL DIFF MANUAL
--- NOTE | 2017-02-05 14:20 | RADRPT ---
EXAM DATE/TIME: 02/05/2017 11:33 [facility] COMPARISON: No previous studies available for comparison. INDICATIONS : Vomiting. MEDICAL HISTORY : carcinoma, not specified SURGICAL HISTORY : Cholecystectomy. ENCOUNTER: Initial ACUITY: 4 - 6 days PAIN SCORE: Non-responsive. LOCATION: Bilateral abdomen FINDINGS: Supine view of the abdomen was performed. The abdominal bowel gas pattern demonstrates moderate cons tipation. Residual contrast in large bowel. No obstruction or free air. CONCLUSION: 1. Moderate constipation. Giorgio Maldonado MD on February 05, 2017 at 14:17 Board Certified Radiologist. This report was verified electronically.
--- NOTE | 2017-02-05 17:28 | HHI.PR ---
Subjective Remarks Patient seen earlier today 11:00AM Follow-up visit COPD exacerbation, DM, A. fib, CHF, pneumonia, congestion. Patient seen today. Initially patient evaluated while sitting in chair in the room. Patient awake and appropriate complains of pain in the buttock area. Patient stood with two person assist buttock area evaluated skin is blanchable intact. At this time patient offered no other complaints. Shortly after Dr. Ferro and I left the room we're called urgently back into the room by the nurse reporting patient had, "gone limp and vomited." Returned into room patient responsive at that point vomitus material on front of hospital gown down to 4 brown possible fecal appearance. Rapid response/high Called Vital signs temperature 98.2, pulse 76 respiratory rate 20 blood pressure 130/ 68 pulse oximetry 93% on 2 L nasal cannula blood glucose 167. ABG ordered and reviewed pH 7.5 for PCO2 44 PO2 63 base excess 13.6 bicarbonate 37 Patient again responsive and appropriate did not recall brief nonresponsive episode. Unresponsive episode lasted than 1 minute. Patient denied shortness of breath chest pain. Objective Vitals Vital Signs Date Time Temp Pulse Resp B/P Pulse Ox O2 Delivery O2 Flow Rate FiO2 02/05/17 11:40 94 Nasal Cannula 3.00 02/05/17 11:15 98.2 76 20 130/68 93 02/05/17 07:23 90 Nasal Cannula 2.00 02/05/17 05:56 98.0 75 18 146/68 90 02/04/17 21:33 94 Nasal Cannula 3.00 02/04/17 19:23 91 Nasal Cannula 4.00 02/04/17 18:28 97.8 75 18 137/65 94 I/O 02/04/17 02/04/17 02/04/17 02/05/17 02/05/17 02/05/17 07:00 15:00 23:00 07:00 15:00 23:00 Intake Total 480 ml 480 ml 600 ml 240 ml 120 ml Output Total 850 ml 300 ml 325 ml 1260 ml Balance -370 ml 180 ml 275 ml -1020 ml 120 ml Intake Oral 480 ml 480 ml 600 ml 240 ml 120 ml Output Urine Total 850 ml 300 ml 325 ml 1260 ml # Voids 2 Result Diagram: 02/05/17 1150 02/05/17 1150 Objective Remarks GENERAL: This is an elderly, well-developed patient, appears ill. SKIN: No rashes, ecchymoses or lesions. Cool and dry. HEAD: Atraumatic. Normocephalic. No temporal or scalp tenderness. EYES: EOMI. No scleral icterus. No injection or drainage. CARDIOVASCULAR: Irregular rate without murmurs, gallops, or rubs. RESPIRATORY: Diminished bases. Bibasilar crackles. on 2L NC GASTROINTESTINAL: Abdomen soft, non-tender, nondistended. Bowel sounds active 4. MUSCULOSKELETAL: Extremities without clubbing, cyanosis, BLE +1 edema. RUE +2 edema. No joint tenderness, effusion, or edema noted. 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 Patient was found to have hospital-acquired pneumonia, sepsis, acute on chronic respiratory failure with hypoxemia and hypercarbia. His condition improved and he is now transferred to medical psych unit for further evaluation of his depression. Consulted for medical management. 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 01/31/17 CXR showed 1. Small to moderate size right pleural effusion with associated compressive atelectasis and/or consolidation. The pleural effusion has increased from the prior examination. 2. Stable small left basilar pleural- parenchymal opacity likely representing a very small volume of pleural fluid with associated air space consolidation. 02/03/2017 CXR Right basilar pleural-parenchymal opacity has improved and there is likely residual atelectasis and/or airspace consolidation at the right base. 2. Persistent small left pleural effusion with associative volume loss and/or consolidation. 02/04/2017 CT of the chest reviewed and reveals bibasilar consolidation and minimal patchy ground glass density in the upper lobes moderate right and small left pleural effusion - Duonebs scheduled and when necessary. - Zosyn IV, vancomycin IV discontinue for now. Completed. - On prednisone twice a day 20 mg - Continue Torsemide 20 mg PO BID - Monitor BMP and respiratory status. - Incentive spirometry use. Acapella use. added EZpap - Patient out of bed to chair appears to be improving respiratory status. [place] Act, suicide attempt, depression - managed by psychiatry team. Epiglottis mass Consulted ENT, pathology report shows SCC. informed met with radiation oncology. - Monitor for increased depression, suicidal ideation. - Followed by radiation oncology- per hour inpatient starting radiation today DM, chronic - uncontrolled - Hemoglobin A1c 8.1 - Monitor Accu-Cheks. Monitor for hypoglycemia - increase Levemir 15 units BID, prandial insulin 7units. Continue with insulin sliding scale. - Elevated blood glucose, also on Prednisone Chronic Pain - Continue home meds prn Morphine PO Monitor mental status. Afib, controlled HR well controlled. -Continue Xarelto, diltiazem and amiodarone. CHF, acute on chronic diastolic CHF- improving Stable. - Episode of congestion and HALICAT was called, lasix IV 20mg given - CXR showed Small to moderate size right pleural effusion with associated compressive atelectasis and/or consolidation. The pleural effusion has increased from the prior examination. 2. Stable small left basilar pleural- parenchymal opacity likely representing a very small volume of pleural fluid with associated air space consolidation. -Now on torsemide 20 mg twice a day Right upper extremity edema - US Doppler showed cephalic vein thrombosis that does not extend into the axillary vein. Appears to be caused by IV infiltration. We'll monitor for now. Patient already on Xarelto. Unresponsive episode associated with vomiting times one. Possibly vasovagal -rapid response/Halicat called CBC, BMP, troponin, ABG reviewed -KUB reviewed by myself as well as Dr. Ferro reveals moderate constipation -Patient discharged from psychiatric center admitted to CICU for BiPAP and closer monitoring DVT prophylaxis: Xarelto GI prophylaxis: Protonix Full code Discussed with patient, nursing and Halicat team Written by Mirella Cardoso, acting as scribe for Dr. Ferro on 02/05/17 at 17:27. Attending Statement All or portions of this note were transcribed by scribe Mirella Cardoso . I, Dr. Favian Diamond personally performed the history, physical exam, and medical decision making; and confirmed the accuracy of the information in the transcribed note. Authenticated by Dr. Favian Diamond on 02/11/17 at 08:37. Problem Qualifiers (1) Type 2 diabetes mellitus: Qualified Code: E11.65 - Type 2 diabetes mellitus with hyperglycemia, without long-term current use of insulin Mirella Cardoso Feb 05, 2017 17:28 Favian Keyes MD Feb 11, 2017 08:37
[2017-02-06] MEDS ORDERED: VENLAFAXINE HCL XR 75 MG CAP PO SCH (09:00)
--- NOTE | 2017-02-06 20:17 | EKG ---
Date Performed: 02/05/2017 Time Performed: 11:35:00 PTAGE: 76 years EKG: Sinus rhythm NONSPECIFIC T-WAVE ABNORMALITY BORDERLINE ECG PREVIOUS TRACING : 01/27/2017 02.57 Compared to prior tracing no significant change DOCTOR: Bry Real Interpretating Date/Time 02/06/2017 20:16:51
--- NOTE | 2017-03-13 14:45 | HHI.DS ---
Psychiatry Discharge Summary Inpatient Psychiatric care?: Yes Advance Directive: No Reason Not Provided: patients given advanced directive info Mental Health AdvanceDirective: No Health Care Proxy: Yes Admission Admission Date Jan 28, 2017 at 15:35 Admission Diagnosis: (1) Adjustment disorder with mixed anxiety and depressed mood ICD Code: F43.23 Brief History On my initial evaluation and : The patient is a 76-year-old man, domiciled with his in [place], , without any previous psychiatric history, no previous suicidal attempts, no previous use of psychotropics, seen by psychiatry in previous hospitalizations due to depression related with adjustment, medical history of DM, afib, COPD on home oxygen, GERD, CHF, hypothyroidism who presented to the [facility] emergency department with a history of recently being discharged from the hospital after 2 admissions earlier in the month. The initial admission was related to facial monroy while smoking on oxygen in which he was transferred to [facility], the second admission on January 15, 2017 was related to generalized weakness, confusion, scrotal edema and UTI. Patient was brought in today because patient' s stated he is more depressed and told the police he attempted to shoot himself. Patient is currently a [place] act that was written prior to the patient' s arrival and it states the patient had a fire arm out and was attempting to shoot himself in the abdomen. Patients reports that he attempted to pull the trigger multiple times, however he was too weak to do it. Patient was seen for psychiatric evaluation in the ER, but he was unable to cooperate appropriately due to acute respiratory symptoms, the patient is severely SOB and cannot answer questions appropriate. However, patient this depresses that he is sad due to his medical situation and also "due to many other things", but he denies suicidal and homicidal ideation, he denies visual and auditory hallucinations. He was not confronted about his recent suicidal gesture. His Dana Santana who was used as collateral information, says the last night she discovered that her had a gun pointing to his stomach under a blanket. She said that she became very scared because in the last weeks he has been voicing suicidal statements. She is states that she is very concerned because at the beginning of the month he had a throat biopsy sent to pathology and his regular doctor received back to her and told them that he was negative, but just this morning in their arrival to the [facility] she was told that the biopsy was actually positive. She is very afraid that once he knows that he is going to become even more depressed and more suicidal. 01/29/2017: Today on evaluation along with health and social care teacher Carine and nurse Juan, patient seems to be in an improved mood, still presenting breathing difficulties , with active oxygen mask, he says that he regrets his behavior at home yesterday. He say that he has been very confused about many things of his life. Patient states that is not easy to be sick, to losing control of himself , and also seeing how his is quitting her job just to take care of his. For this reason patient stated that he feels guilty, sad, hopeless, ashamed and at some point he has thought that is better to be and No Surinder for his family. But, he says that this is a mistake, he wants to live, he wants to fight for his health and for his family. While giving this information patient beginning emotional and tearful and admitted that he needs the help and he accept it. At this moment he denies suicidal ideation, he denies visual and auditory hallucinations. Patient is partially oriented in place, partially oriented in time, he knows he is in the hospital and he knows is 2016. In a telephone conversation with his today, we plan to meet with the patient tomorrow at 11 AM to disclose the information of his cancer. I spoke with Dr. Casas, oncology radiologist, and he would see the patient tomorrow afternoon for explanation of treatment alternatives. Tobacco Use In Past 30 Days: 4 or Less Cigarettes/Day Alcohol Use: Never Hospital Course Please refer to previous psychiatric progress note Results Blood Pressure 130 / 68 Reviewed Reviewed Summary of Procedures Non- Imaging Last Impressions Abdomen X-Ray 02/05/17 0000 Signed Impressions: Service Date/Time: January 11:33 - CONCLUSION: 1. Moderate constipation. Giorgio Maldonado MD Chest CT 02/04/17 0000 Signed Impressions: Service Date/Time: Saturday, February 04, 2017 20:26 - CONCLUSION: 1. Bibasilar consolidation and minimal patchy groundglass densities in the upper lobes. 2. Moderate right and small left pleural effusion. Mateo Thomas MD Chest X-Ray 02/03/17 0000 Signed Impressions: Service Date/Time: Friday, February 03, 2017 09:32 - CONCLUSION: 1. Right basilar pleural-parenchymal opacity has improved and there is likely residual atelectasis and/or airspace consolidation at the right base. 2. Persistent small left pleural effusion with associative volume loss and/or consolidation. Otis Peterson MD Upper Extremity Ultrasound 02/02/17 0000 Signed Impressions: Service Date/Time: Thursday, February 02, 2017 11:54 - CONCLUSION: Cephalic vein thromboses that does not extend into the axillary vein. Henry Sims MD FACR Pending results at discharge: No Medications # of Antipsychotic meds at D/C: 0 Approp Antipsych med options 1 - Minimum of three failed multiple trials of monotherapy. 2 - Documented plan to taper to monotherapy due to previous use of multiple meds OR cross-taper in progress at D/C. 3 - Documentation of augmentation of Clozapine. 4 - Justification other than those listed in allowable values 1-3, document here : Discharge Discharge Date: Mar 21, 2017 Discharge Diagnosis: (1) Major depressive disorder, recurrent episode, in partial remission ICD Code: F33.41 Mental Status Exam at Disch Please refer to previous psychiatric progress note mental status Pt Condition on Discharge: Stable Discharge Disposition: Disch to Another Hospital Discharge Instructions Diet Instructions: Diabetic Diet Activities you can perform: Non Weight Bearing Scheduled Appointment: Discharge Time > 30 minutes Discharge/Advance Care Plan Health Problems: (1) Major depressive disorder, recurrent episode, in partial remission Goals to promote your health * To prevent worsening of your condition and complications * To maintain your health at the optimal level Directions to meet your goals Take your medications as prescribed Follow your dietary instruction Follow activity as directed Keep your appointments as scheduled Take your immunizations and boosters as scheduled If your symptoms worsen call your PCP, if no PCP go to Urgent Care Center or Emergency Room For 22/06 questions related to your inpatient stay or results of tests pending at discharge, please contact Dr. Olayinka Arriaza at Smoking is Dangerous to Your Health. Avoid second hand smoking Olayinka Arriaza MD Mar 13, 2017 14:45
== END 2017-02-05 11:46 | disposition short-term general hospital (02) | DRG 885 ==
LOC: H4EA 15:35
PROVIDERS: ADMIT Psychiatry & Neurology Psychiatry; ATTEND Psychiatry & Neurology Psychiatry
DX: F33.41 Major depressive disorder, recurrent, in partial remission (principal); I50.33 Acute on chronic diastolic (congestive) heart failure; J18.9 Pneumonia, unspecified organism; E11.65 Type 2 diabetes mellitus with hyperglycemia; Z99.81 Dependence on supplemental oxygen; J44.1 Chronic obstructive pulmonary disease with (acute) exacerbation; K31.84 Gastroparesis; I48.91 Unspecified atrial fibrillation; C32.1 Malignant neoplasm of supraglottis; I82.619 Acute embolism and thrombosis of superficial veins of unspecified upper extremity; R13.10 Dysphagia, unspecified; K21.9 Gastro-esophageal reflux disease without esophagitis; E03.9 Hypothyroidism, unspecified; Z88.1 Allergy status to other antibiotic agents; Z91.040 Latex allergy status; Z91.048 Other nonmedicinal substance allergy status; M19.90 Unspecified osteoarthritis, unspecified site; Z87.891 Personal history of nicotine dependence; G89.29 Other chronic pain; T20.00XD Burn of unspecified degree of head, face, and neck, unspecified site, subsequent encounter; Y95 Nosocomial condition; K59.00 Constipation, unspecified; R55 Syncope and collapse; Z99.3 Dependence on wheelchair
CPT/HCPCS: 36600; 71010; 71250; 74000; 77334; 80048; 80053; 80061; 80202; 82550; 82805; 82947; 82948; 83036; 83735; 84100; 84484; 85007; 85025; 85027; 93005; 93971; 94150; 94640; 94664; 94667; 94668; J1815; J1940; J2543; J2920; J3370; J7040; J7512

== ENCOUNTER 2017-02-05 12:04 | Inpatient (IN) | payer OTHER, MEDICARE ==
[2017-02-05] VITALS (13 sets, daily range): BP systolic 116–126; BP diastolic 57–62; PULSE 67–78; RESP 21–22; TEMP 98.1–98.2; O2SAT 90–98
[~2017-02-05 12:04] MED LIST changes: -LEVO.1 PO; +METH-759
[2017-02-05] MEDS: SODIUM CHLOR 0.45% 1000 ML INJ 1,000 ML IV SCH (12:22)
[2017-02-05] MEDS ORDERED: ONDANSETRON HCL 4 MG/2 ML VIAL IVP PRN (12:30)
[2017-02-05] MEDS ORDERED: ACETAMINOPHEN 325 MG TAB PO PRN (12:30)
[2017-02-05] MEDS ORDERED: SODIUM CHLORIDE 0.9% FLUSH 5 ML FLUSH FLUSH PRN (12:30)
[2017-02-05 15:11] LABS: DIGOXIN 0.5 NG/ML (0.8-2.0)
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
[2017-02-05] MEDS: RESP: ALBUTEROL 2.5 MG/IPRATROPIUM 0.5 MG NEB (SCH) INH ×2 (15:47→19:46)
[2017-02-05] MEDS ORDERED: GLUCAGON 1 MG/ML VIAL OTHER PRN (16:00)
[2017-02-05] MEDS: INSULIN ASPART SUPPLEMENTAL SCALE SQ SCH ×2 (16:00→21:38)
[2017-02-05 16:47] LABS: CREATINE KINASE 55 U/L (39-308)
[2017-02-05] MEDS ORDERED: POLYETHYLENE GLYCOL 17 GM PKG PO ONE (19:00)
[2017-02-05] MEDS ORDERED: BISACODYL 10 MG SUPP RECTAL SCH (20:00)
[2017-02-05] MEDS ORDERED: DOCUSATE SODIUM 100 MG CAP PO SCH (21:00)
[2017-02-05] MEDS: MORPHINE SULFATE 30 MG TAB PO PRN (21:36)
[2017-02-05] MEDS: DILTIAZEM-CD 240 MG CAP ER PO SCH (21:36)
[2017-02-05] MEDS: ATORVASTATIN 40 MG TAB PO SCH (21:37)
[2017-02-05] MEDS: DOCUSATE SODIUM 100 MG CAP PO SCH (21:37)
[2017-02-05] MEDS: TAMSULOSIN HCL 0.4 MG CAP PO SCH (21:37)
[2017-02-05] MEDS: INSULIN DETEMIR 100 UNITS/ML VIAL SQ SCH (21:38)
[2017-02-05] MEDS: SODIUM CHLORIDE 0.9% FLUSH 5 ML FLUSH FLUSH SCH (21:38)
[2017-02-05] MEDS: NYSTATIN 100,000 U/GM OINT 15 GM TUBE TOPICAL SCH (21:38)
[2017-02-05] MEDS: LACTULOSE SYRUP 20 GM/30 ML CUP PO SCH (21:52)
[2017-02-05] MEDS: traZODone HCL 100 MG TAB PO SCH (21:52)
[2017-02-06] VITALS (24 sets, daily range): BP systolic 112–136; BP diastolic 53–67; PULSE 69–80; RESP 14–20; TEMP 97.7–98.7; O2SAT 90–97
[2017-02-06] MEDS: SODIUM CHLOR 0.45% 1000 ML INJ 1,000 ML IV SCH ×2 (01:42→14:10)
[2017-02-06] MEDS: LEVOTHYROXINE SODIUM 25 MCG TAB PO SCH (05:35)
[2017-02-06] MEDS: LEVOTHYROXINE SODIUM 200 MCG TAB PO SCH (05:36)
[2017-02-06] MEDS: INSULIN ASPART SUPPLEMENTAL SCALE SQ SCH ×4 (05:36→21:00)
--- NOTE | 2017-02-06 06:39 | MB ---
cc: BECKY PAUL MD DATE OF CONSULTATION 02/05/[address] Campoverde REASON FOR CONSULTATION Pulmonary management. HISTORY OF PRESENT ILLNESS Mr. Santana is a pleasant 76-year-old male with history of COPD. He is oxygen dependent. He was recently admitted in this hospital with the facial monroy when he was using oxygen and lit a cigarette. He was sent to an [facility]. He evaluated and treated by ENT and recently was discharged from the hospital. The patient was admitted back with possible suicidal attempt. He was in the Psych Unit, now transferred to the main floor. He has mild shortness of breath with exertion but he feels well. He is using oxygen 2-3 liters by nasal cannula. He normally uses oxygen 4 liters at home. He has no cough or sputum production, no chest pain. No fever or chills. PAST MEDICAL HISTORY 1. COPD. 2. Congestive heart failure. 3. Diabetes mellitus. 4. History of recent facial monroy. 5. Atrial fibrillation status post ablation done twice. 6. History of cholecystectomy. 7. History of gastroparesis. MEDICATIONS He is currently taking - 1. Protonix 40 mg a day. 2. Xarelto 20 mg a day. 3. Spiriva once a day. 4. Amiodarone 200 mg daily. 5. Synthroid 225 mcg a day. 6. Lipitor 40 mg a day. 7. Diltiazem 240 mg. 8. Nystatin locally. 9. Flomax 0.4 mg. 10. Albuterol/Atrovent nebulizer treatment. ALLERGIES ADHESIVES. FLAGYL. FLOXIN. LATEX. SOCIAL HISTORY He has history of smoking which he claims to have quit 24 days ago. He drinks socially. 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 She is disabled. FAMILY HISTORY He is a second time now for 20 years. He has two children and his has two children. REVIEW OF SYSTEMS He is feeling weak and tired. Mild shortness of breath. No seizure, stroke or epilepsy. No DVT or pulmonary embolism. PHYSICAL EXAMINATION GENERAL: An elderly male, mildly short of breath, not in acute distress. VITAL SIGNS: Blood pressure 116/62, heart rate 68, respirations 20. Temperature 98.2. HEENT EXAMINATION: Unremarkable. NECK: Supple. JVP not raised. CHEST: Equal bilateral decreased chest excursion. Expiratory rhonchi. CV: S1 and S2 normal. ABDOMEN: Soft, nondistended. Bowel sounds are present. EXTREMITIES: No edema. CHAIR FINISHER: He is alert, oriented x 3. No focal deficit. LABORATORY DATA WBC count 12.3, hemoglobin 13.1, hematocrit 39.2, MCV 82, platelet count 217. Sodium 130, potassium 4.1, chloride 90, CO2 40.7, BUN 29, creatinine 1.04. His blood gas on nasal cannula - pH 7.54, pCO2 44, pO2 63, bicarb 37. CHEST X-RAY Bibasilar consolidation. Minimal basic ground-glass densities and moderate pleural effusion. IMPRESSION 1. Shortness of breath secondary to underlying COPD. 2. Also has congestive heart failure. 3. Moderate pleural effusion. 4. Basal lung infiltrate, possible early atelectasis. 5. Atrial fibrillation status post ablation. 6. History of recent facial monroy. PLAN 1. I have discussed with the patient we will supplement his oxygen. 2. I will check his pulmonary function study. 3. Aerosol treatment, albuterol and Atrovent to continue. 4. No need for steroid at this time. 5. His pleural effusion is small, will monitor it. If he has increase in the effusion, we will consider thoracentesis. Further treatment will depend on his course in the hospital. Thank you, Dr. Campoverde, for this consult. MD GAB Castaneda/CORBIN /6:15 PM /6:17 AM
[2017-02-06] MEDS: AMIODARONE 200 MG TAB PO SCH (07:41)
[2017-02-06] MEDS: LACTULOSE SYRUP 20 GM/30 ML CUP PO SCH (07:41)
[2017-02-06] MEDS: DOCUSATE SODIUM 100 MG CAP PO SCH ×2 (07:41→21:40)
[2017-02-06] MEDS: DILTIAZEM-CD 240 MG CAP ER PO SCH ×2 (07:41→21:40)
[2017-02-06] MEDS: PANTOPRAZOLE SOD 40 MG DELAYED RELEASE TAB PO SCH (07:41)
[2017-02-06] MEDS: RIVAROXABAN 20 MG TAB PO SCH (07:42)
[2017-02-06] MEDS: MULTIVITAMINS/MINERALS THERAPEUTIC TAB PO SCH (07:42)
[2017-02-06] MEDS: TIOTROPIUM BROMIDE 18 MCG INH INH SCH (07:42)
[2017-02-06] MEDS: NYSTATIN 100,000 U/GM OINT 15 GM TUBE TOPICAL SCH ×2 (07:42→21:43)
[2017-02-06] MEDS: SODIUM CHLORIDE 0.9% FLUSH 5 ML FLUSH FLUSH SCH ×2 (07:42→21:42)
[2017-02-06] MEDS: INSULIN DETEMIR 100 UNITS/ML VIAL SQ SCH (07:42)
[2017-02-06] MEDS: INSULIN ASPART 1,000 UNITS/10 ML VIAL SQ SCH ×3 (07:46→15:42)
[2017-02-06 07:55] LABS: AUTOMATED NEUTROPHIL # 11.7 TH/MM3 (1.8-7.7); BASOPHIL % 0.2 % (0.0-2.0); EOSINOPHIL % 0.3 % (0.0-4.0); HEMATOCRIT 36.9 % (39.0-51.0); HEMO FLAGS DIFF FINAL; LYMPHOCYTE # 1.1 TH/MM3 (1.0-4.8); MEAN CELL VOLUME 82.4 FL (80.0-100.0); MEAN CORPUSCULAR HEMOGLOBIN 27.4 PG (27.0-34.0); MEAN CORPUSCULAR HGB CONC 33.2 % (32.0-36.0); MONO % 8.8 % (0.0-8.0); NEUT % 82.7 % (16.0-70.0); PLATELET COUNT 212 TH/MM3 (150-450); RED BLOOD COUNT 4.48 MIL/MM3 (4.50-5.90); RED CELL DISTRIBUTION WIDTH 17.2 % (11.6-17.2); WHITE BLOOD COUNT 14.2 TH/MM3 (4.0-11.0)
[2017-02-06 08:23] LABS: ALKALINE PHOSPHATASE 81 U/L (45-117); ALT (GPT) 54 U/L (12-78); ANION GAP 5 MEQ/L (5-15); AST (GOT) 24 U/L (15-37); BICARBONATE 37.8 MEQ/L (21.0-32.0); BLOOD UREA NITROGEN 23 MG/DL (7-18); CHLORIDE 92 MEQ/L (98-107); GLOMERULAR FILTRATION RATE 107 ML/MIN (>89); POTASSIUM 3.6 MEQ/L (3.5-5.1); SODIUM (NA) 135 MEQ/L (136-145); TOTAL BILIRUBIN ADULT 0.5 MG/DL (0.2-1.0)
[2017-02-06] MEDS: RESP: ALBUTEROL 2.5 MG/IPRATROPIUM 0.5 MG NEB (SCH) INH ×4 (08:33→20:02)
[2017-02-06] MEDS: DEXTROSE 50% IN WATER 50 ML VIAL(D50) IV PUSH PRN ×2 (10:43→15:44)
[2017-02-06] MEDS: POLYETHYLENE GLYCOL 17 GM PKG PO SCH (11:15)
--- NOTE | 2017-02-06 11:19 | HHI.PR ---
Subjective Remarks 76 YOWM with COPD,CHF,AF, s/p Ablation Weaned to 3LNC sat 99% at BS Appetite poor Objective Vital Signs Vital Signs Date Time Temp Pulse Resp B/P Pulse Ox O2 Delivery O2 Flow Rate FiO2 02/06/17 08:34 90 Nasal Cannula 3.00 02/06/17 08:00 69 02/06/17 08:00 98.2 69 16 125/65 97 02/06/17 04:00 71 02/06/17 04:00 97.7 72 20 115/65 95 02/06/17 03:00 97.7 72 20 115/65 95 02/06/17 03:00 71 02/06/17 02:00 71 02/06/17 01:00 72 02/06/17 00:00 74 02/06/17 00:00 97.9 77 20 136/67 92 02/05/17 23:00 76 02/05/17 22:00 78 02/05/17 21:00 74 02/05/17 20:00 74 02/05/17 20:00 98.1 75 21 126/57 93 02/05/17 19:46 98 Nasal Cannula 2.00 02/05/17 19:00 69 02/05/17 18:00 74 02/05/17 17:00 72 02/05/17 16:00 98.2 67 22 116/62 90 02/05/17 16:00 68 02/05/17 15:00 68 02/05/17 14:00 68 02/05/17 13:18 95 Nasal Cannula 2.00 02/05/17 13:00 68 I/O 02/05/17 02/05/17 02/05/17 02/06/17 02/06/17 02/06/17 07:00 15:00 23:00 07:00 15:00 23:00 Intake Total 456 ml 1027 ml Output Total 600 ml 950 ml Balance -144 ml 77 ml Intake Oral 240 ml 480 ml IV Total 216 ml 547 ml Output Urine Total 600 ml 950 ml # Bowel Movements 0 0 Result Diagram: 02/06/1770102/06/17701 Objective Remarks GENERAL: MBMN WM, weak, no distress SKIN: Warm and dry. HEAD: Normocephalic. EYES: No scleral icterus. No injection or drainage. NECK: Supple, trachea midline. No JVD or lymphadenopathy. CARDIOVASCULAR: Regular rate and rhythm without murmurs, gallops, or rubs. RESPIRATORY: Breath sounds equal bilaterally. No accessory muscle use. Decreased BS at Bases GASTROINTESTINAL: Abdomen soft, non-tender, nondistended. MUSCULOSKELETAL: No cyanosis, or edema. BACK: Nontender without obvious deformity. No CVA tenderness. A/P Assessment and Plan COPD Restrictive lung disease AF, s/p ablation Oleural effusion Atelactesis PLAN: Supplement [address] effusion If effusion increases, will need TC Check PFT Xarelto 20 mg daily Amiodarone 200mg daily DW pt and his at BS. Bimal Borden MD Feb 06, 2017 11:19
[2017-02-06] MEDS: DEXTROSE 50% IN WATER 50 ML VIAL(D50) IV PUSH ONE (16:00)
[2017-02-06] MEDS ORDERED: SOD PHOSPHATE/SOD BIPHOSPHATE (ADULT) ENEMA 133ML PR ONE (16:00)
[2017-02-06] MEDS ORDERED: METHYLNALTREXONE BROMIDE 12 MG/0.6 ML VIAL SQ ONE (16:00)
[2017-02-06] MEDS: DEXT 5%-NACL 0.9% 1000 ML INJ 1,000 ML IV SCH (16:00)
--- NOTE | 2017-02-06 16:28 | HHI.PR ---
Subjective Remarks Patient hypoglycemic today sp D50 administration states feels sick, feels nauseous and has diffuse abdominal pain. Denies chest pain or shortness of breath Denies fevers or chills Denies further vomiting States has not had a bowel movement but is passing gas. As per RN patient with very poor appetite and not eating. Objective Vitals Vital Signs Date Time Temp Pulse Resp B/P Pulse Ox O2 Delivery O2 Flow Rate FiO2 02/06/17 16:00 76 02/06/17 16:00 98.2 80 18 128/59 94 02/06/17 15:00 70 02/06/17 14:00 74 02/06/17 13:00 70 02/06/17 12:00 98.1 75 14 115/53 95 02/06/17 12:00 71 02/06/17 11:00 72 02/06/17 10:00 74 02/06/17 09:00 74 02/06/17 08:34 90 Nasal Cannula 3.00 02/06/17 08:00 69 02/06/17 08:00 98.2 69 16 125/65 97 02/06/17 07:00 70 02/06/17 04:00 71 02/06/17 04:00 97.7 72 20 115/65 95 02/06/17 03:00 97.7 72 20 115/65 95 02/06/17 03:00 71 02/06/17 02:00 71 02/06/17 01:00 72 02/06/17 00:00 74 02/06/17 00:00 97.9 77 20 136/67 92 02/05/17 23:00 76 02/05/17 22:00 78 02/05/17 21:00 74 02/05/17 20:00 74 02/05/17 20:00 98.1 75 21 126/57 93 02/05/17 19:46 98 Nasal Cannula 2.00 02/05/17 19:00 69 02/05/17 18:00 74 02/05/17 17:00 72 I/O 02/05/17 02/05/17 02/05/17 02/06/17 02/06/17 02/06/17 07:00 15:00 23:00 07:00 15:00 23:00 Intake Total 456 ml 1027 ml Output Total 600 ml 950 ml Balance -144 ml 77 ml Intake Oral 240 ml 480 ml IV Total 216 ml 547 ml Output Urine Total 600 ml 950 ml # Bowel Movements 0 0 Result Diagram: 02/06/1770102/06/17701 Objective Remarks GENERAL: This is a well-nourished, well-developed patient, ill appearing. SKIN: No rashes, ecchymoses or lesions. Cool and dry. HEAD: Atraumatic. Normocephalic. No temporal or scalp tenderness. EYES: Pupils equal round and reactive. Extraocular motions intact. No scleral icterus. No injection or drainage. ENT: Nose without bleeding, purulent drainage or septal hematoma. Throat without erythema, tonsillar hypertrophy or exudate. Uvula midline. Airway patent. NECK: Trachea midline. No JVD or lymphadenopathy. Supple, nontender, no meningeal signs. CARDIOVASCULAR: Regular rate and rhythm without murmurs, gallops, or rubs. RESPIRATORY: Clear to auscultation. Breath sounds equal bilaterally. No wheezes , rales, or rhonchi. GASTROINTESTINAL: Abdomen soft, non-tender, mildly distended. No hepato- splenomegaly, or palpable masses. No guarding. MUSCULOSKELETAL: Extremities without clubbing, cyanosis, or edema. No joint tenderness, effusion, or edema noted. No calf tenderness. Negative Homans sign bilaterally. NEUROLOGICAL: Awake and alert. Cranial nerves II through XII intact. Motor and sensory grossly within normal limits. Five out of 5 muscle strength in all muscle groups. Normal speech. Medications and IVs Current Medications Medications (Trade) Dose Ordered Sig/Melissa Route Start Time Stop Time Status Last Admin (12/01 NS 1000 ml Inj) 1,000 ml @ 75 mls/hr [id number] IV 02/05/17 12:22 02/06/17 14:10 (NS Flush) 2 ml UNSCH PRN FLUSH 02/05/17 12:30 (NS Flush) 2 ml BID FLUSH 02/05/17 21:00 02/05/17 21:38 (Tylenol) 650 mg Q4H PRN PO 02/05/17 12:30 (Zofran Inj) 4 mg Q6H PRN IVP 02/05/17 12:30 02/06/17 10:35 (Lipitor) 40 mg HS PO 02/05/17 21:00 02/05/17 21:37 (Cardizem Cd) 240 mg BID PO 02/05/17 21:00 02/06/17 07:41 (Colace) 100 mg BID PO 02/05/17 21:00 02/06/17 07:41 (Synthroid) 25 mcg DAILY@0600 PO 02/06/17 06:00 02/06/17 05:35 (Synthroid) 200 mcg DAILY@0600 PO 02/06/17 06:00 02/06/17 05:36 (Theragran M Tab) 1 tab DAILY PO 02/06/17 09:00 02/06/17 07:42 (Mycostatin Oint) 1 applic Q12HR TOPICAL 02/05/17 21:00 02/06/17 07:42 (Protonix) 40 mg DAILY PO 02/06/17 09:00 02/06/17 07:41 (Xarelto) 20 mg DAILY PO 02/06/17 09:00 02/06/17 07:42 (Flomax) 0.4 mg HS PO 02/05/17 21:00 02/05/17 21:37 (Spiriva Inh) 18 mcg DAILY INH 02/06/17 09:00 02/06/17 07:42 (Desyrel) 200 mg HS PO 02/05/17 21:00 02/05/17 21:52 (Proair Hfa Inh) 2 puff Q4HR PRN INH 02/05/17 12:30 (Cordarone) 200 mg DAILY PO 02/06/17 09:00 02/06/17 07:41 (D50w (Vial) Inj) 25 ml UNSCH PRN IV PUSH 02/05/17 16:00 02/06/17 15:44 (Glucagon Inj) 1 mg UNSCH PRN OTHER 02/05/17 16:00 (Levemir Inj) 15 units Q12HR SQ 02/05/17 21:00 Hold 02/06/17 07:42 (NovoLOG INJ) 7 units TIDPC SQ 02/06/17 09:30 Hold 02/06/17 07:46 (Lactulose Liq) 30 ml DAILY PO 02/05/17 19:00 02/06/17 07:41 (Msir) 15 mg Q4H PRN PO 02/05/17 19:30 (Msir) 30 mg Q8H PRN PO 02/05/17 19:30 02/05/17 21:36 Polyethylene Glycol 17 gm 17 gm DAILY PO 02/06/17 11:15 02/06/17 11:15 (D5W-NS 1000 ml Inj) 1,000 ml @ 84 mls/hr [id number] IV 02/06/17 16:00 A/P Problem List: (1) Encephalopathy acute ICD Code: G93.40 Status: Acute (2) Syncope ICD Code: R55 Status: Acute (3) Nausea and vomiting ICD Code: R11.2 Status: Acute (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 I will hold scheduled insulin Levemir and prandial insulin for now and start the patient on D5NS. Continue to monitor Accu-Cheks. (13) Decreased oral intake ICD Code: R63.8 Status: Acute Plan: Acceded to constipation and the cause of hypoglycemia. Will treat constipation and likely this will relieve the decreased oral intake. Assessment and Plan (1) Encephalopathy acute Plan: The patient to the medical floor. Encephalopathy likely secondary to CO2 narcosis. BiPAP ordered however patient refuses to use it. CO2 narcosis could possibly have been caused by over administration of oxygen the previous day as reviewed in medical records. 02/06 Encephalopathy resolved. Continue to monitor neuro status, (2) Syncope Plan: Syncope could've been possibly secondary to orthostatic hypotension vs vasovagal syncope after vomiting. Both are benign and do not require further workup. (3) Nausea and vomiting Plan: Patient has history of gastroparesis and constipation. Last bowel movement on 02/03/17. 02/06 patient still nauseous - continue Zofran as needed. (4) Squamous cell carcinoma of epiglottis Plan: As shown on pathology. Patient has been evaluated by ENT. Apparently there is no metastases so there is a good chance of cure. Patient was offered surgery and radiotherapy. The patient went on 02/04/17 to radiation simulation. (5) Atrial fibrillation Plan: Right controlled. Monitor on telemetry. Diltiazem has been discontinued. Patient on amiodarone 200 mg by mouth twice a day, however is way past the loading dose. I will order an amiodarone level since amiodarone toxicity can also give nausea and vomiting. 02/06 amiodarone level pending. (6) Hypertension Plan: Seems to be stable. Check orthostatic for orthostatic hypotension. Trial currently on Cardizem. (7) Diabetes Plan: Patient with diabetes with hyperglycemia and uncontrolled blood sugars. Patient was on insulin Levemir 15 units twice a day and prandial insulin 7 units with meals and SSI with insulin NovoLog. Continue on same regime and according to patient's blood sugars this will be titrated. 02/06 Patient with persistent hypoglycemia in the 40s twice today at 10:43 AM and again in the afternoon. I will hold insulin Levemir and prandial insulin since patient is not eating. Also start the patient on D5NS. Continue to monitor Accu-Cheks. (8) COPD (chronic obstructive pulmonary disease) Plan: Seems to be stable, continue Spiriva. Keep oxygen saturation between 88 and 92%. (9) Hypothyroidism Plan: Continue levothyroxine at 225 mg daily. TSH obtained in 06/11/17 was 5.460, TSH today 02/05/17 history 0.770. TSH is coming down. Continue same dose and recheck TSH in 4 weeks. (10) Constipation Plan: Abdominal KUB obtained during rapid response shows moderate constipation , reviewed by me. I will order lactulose and MiraLAX as well as Colace. Suppository when necessary. 02/06 Patient is still constipated - Continue Senna and Colace , will give Miralax again and give an injection of Relistor as well as a Fleet enema. (11) Major depressive disorder, recurrent episode, in partial remission Plan: Consultation psychiatry, continue trazodone at bedtime. Hold Klonopin due to encephalopathy and slight confusion. Problem Qualifiers (1) Diabetes: Qualified Code: E11.65 - Type 2 diabetes mellitus with hyperglycemia, with long -term current use of insulin Favian Keyes MD Feb 06, 2017 16:28
[2017-02-06] MEDS: traZODone HCL 100 MG TAB PO SCH (21:40)
[2017-02-06] MEDS: TAMSULOSIN HCL 0.4 MG CAP PO SCH (21:40)
[2017-02-06] MEDS: ATORVASTATIN 40 MG TAB PO SCH (21:40)
[2017-02-07] VITALS (17 sets, daily range): BP systolic 107–145; BP diastolic 53–75; PULSE 72–78; RESP 20–24; TEMP 97.7–98.9; O2SAT 95–99
[2017-02-07] MEDS: DEXT 5%-NACL 0.9% 1000 ML INJ 1,000 ML IV SCH (04:22)
[2017-02-07] MEDS: LEVOTHYROXINE SODIUM 200 MCG TAB PO SCH (04:34)
[2017-02-07] MEDS: LEVOTHYROXINE SODIUM 25 MCG TAB PO SCH (04:34)
[2017-02-07] MEDS: MORPHINE SULFATE 30 MG TAB PO PRN ×2 (04:34→22:37)
[2017-02-07] MEDS: INSULIN ASPART SUPPLEMENTAL SCALE SQ SCH ×4 (06:36→21:55)
[2017-02-07] MEDS: RESP: ALBUTEROL 2.5 MG/IPRATROPIUM 0.5 MG NEB (SCH) INH ×4 (07:15→20:39)
[2017-02-07 07:52] LABS: AUTOMATED NEUTROPHIL # 10.5 TH/MM3 (1.8-7.7); BASOPHIL % 0.4 % (0.0-2.0); EOSINOPHIL % 0.2 % (0.0-4.0); HEMATOCRIT 33.6 % (39.0-51.0); HEMO FLAGS DIFF FINAL; LYMPH % 3.5 % (9.0-44.0); LYMPHOCYTE # 0.4 TH/MM3 (1.0-4.8); MEAN CELL VOLUME 83.9 FL (80.0-100.0); MEAN CORPUSCULAR HEMOGLOBIN 27.9 PG (27.0-34.0); MEAN CORPUSCULAR HGB CONC 33.3 % (32.0-36.0); MONO % 6.6 % (0.0-8.0); NEUT % 89.3 % (16.0-70.0); PLATELET COUNT 178 TH/MM3 (150-450); RED CELL DISTRIBUTION WIDTH 17.7 % (11.6-17.2); WHITE BLOOD COUNT 11.8 TH/MM3 (4.0-11.0)
[2017-02-07 08:09] LABS: ALKALINE PHOSPHATASE 71 U/L (45-117); ALT (GPT) 48 U/L (12-78); ANION GAP 5 MEQ/L (5-15); AST (GOT) 22 U/L (15-37); BICARBONATE 33.2 MEQ/L (21.0-32.0); BLOOD UREA NITROGEN 15 MG/DL (7-18); CHLORIDE 98 MEQ/L (98-107); GLOMERULAR FILTRATION RATE 122 ML/MIN (>89); MAGNESIUM 1.9 MG/DL (1.5-2.5); POTASSIUM 4.1 MEQ/L (3.5-5.1); SODIUM (NA) 136 MEQ/L (136-145); TOTAL BILIRUBIN ADULT 0.6 MG/DL (0.2-1.0)
[2017-02-07] MEDS: PANTOPRAZOLE SOD 40 MG DELAYED RELEASE TAB PO SCH (09:00)
[2017-02-07] MEDS: MULTIVITAMINS/MINERALS THERAPEUTIC TAB PO SCH (09:00)
[2017-02-07] MEDS: TIOTROPIUM BROMIDE 18 MCG INH INH SCH (09:00)
[2017-02-07] MEDS: NYSTATIN 100,000 U/GM OINT 15 GM TUBE TOPICAL SCH ×2 (09:00→21:00)
[2017-02-07] MEDS: POLYETHYLENE GLYCOL 17 GM PKG PO SCH (09:00)
[2017-02-07] MEDS: DILTIAZEM-CD 240 MG CAP ER PO SCH ×2 (09:00→21:45)
[2017-02-07] MEDS: DOCUSATE SODIUM 100 MG CAP PO SCH ×2 (09:00→21:45)
[2017-02-07] MEDS: AMIODARONE 200 MG TAB PO SCH (09:00)
[2017-02-07] MEDS: RIVAROXABAN 20 MG TAB PO SCH (09:00)
[2017-02-07] MEDS: LACTULOSE SYRUP 20 GM/30 ML CUP PO SCH (09:00)
[2017-02-07] MEDS: SODIUM CHLORIDE 0.9% FLUSH 5 ML FLUSH FLUSH SCH ×2 (09:00→21:46)
--- NOTE | 2017-02-07 09:08 | HHI.PR ---
Subjective Remarks Patient states he had a very large bowel movement yesterday abdominal pain has resolved - patient has better appetite and is eating denies cp/sob denies fevers/chills Objective Vitals Vital Signs Date Time Temp Pulse Resp B/P Pulse Ox O2 Delivery O2 Flow Rate FiO2 02/07/17 07:16 99 Nasal Cannula 2.00 02/07/17 06:00 76 02/07/17 05:30 20 02/07/17 05:00 76 02/07/17 04:23 97.8 78 24 145/70 95 02/07/17 04:00 75 02/07/17 04:00 76 02/07/17 03:00 74 02/07/17 02:00 78 02/07/17 01:00 74 02/07/17 00:08 98.9 77 24 138/75 95 02/07/17 00:00 74 02/06/17 23:00 70 02/06/17 22:00 74 02/06/17 21:00 72 02/06/17 20:03 92 Nasal Cannula 2.00 02/06/17 20:00 98.7 77 20 112/60 92 02/06/17 20:00 72 02/06/17 19:00 72 02/06/17 18:00 70 02/06/17 17:00 72 02/06/17 16:00 76 02/06/17 16:00 98.2 80 18 128/59 94 02/06/17 15:00 70 02/06/17 14:00 74 02/06/17 13:00 70 02/06/17 12:00 98.1 75 14 115/53 95 02/06/17 12:00 71 02/06/17 11:00 72 02/06/17 10:00 74 I/O 02/06/17 02/06/17 02/06/17 02/07/17 02/07/17 02/07/17 07:00 15:00 23:00 07:00 15:00 23:00 Intake Total 1027 ml 807 ml 1140 ml Output Total 950 ml 800 ml 950 ml Balance 77 ml 7 ml 190 ml Intake Oral 480 ml 120 ml 240 ml IV Total 547 ml 687 ml 900 ml Output Urine Total 950 ml 800 ml 950 ml Emesis 0 ml # Bowel Movements 0 1 0 Result Diagram: 02/07/1730 02/07/17 0730 Objective Remarks GENERAL: This is a well-nourished, well-developed patient, ill appearing. SKIN: No rashes, ecchymoses or lesions. Cool and dry. HEAD: Atraumatic. Normocephalic. No temporal or scalp tenderness. EYES: Pupils equal round and reactive. Extraocular motions intact. No scleral icterus. No injection or drainage. ENT: Nose without bleeding, purulent drainage or septal hematoma. Throat without erythema, tonsillar hypertrophy or exudate. Uvula midline. Airway patent. NECK: Trachea midline. No JVD or lymphadenopathy. Supple, nontender, no meningeal signs. CARDIOVASCULAR: Regular rate and rhythm without murmurs, gallops, or rubs. RESPIRATORY: Clear to auscultation. Breath sounds equal bilaterally. No wheezes , rales, or rhonchi. GASTROINTESTINAL: Abdomen soft, non-tender, non distended. No hepato- splenomegaly, or palpable masses. No guarding. MUSCULOSKELETAL: Extremities without clubbing, cyanosis, or edema. No joint tenderness, effusion, or edema noted. No calf tenderness. Negative Homans sign bilaterally. NEUROLOGICAL: Awake and alert. Cranial nerves II through XII intact. Motor and sensory grossly within normal limits. Five out of 5 muscle strength in all muscle groups. Normal speech. Procedures none Medications and IVs Current Medications Medications (Trade) Dose Ordered Sig/Melissa Route Start Time Stop Time Status Last Admin (NS Flush) 2 ml UNSCH PRN FLUSH 02/05/17 12:30 (NS Flush) 2 ml BID FLUSH 02/05/17 21:00 02/06/17 21:42 (Tylenol) 650 mg Q4H PRN PO 02/05/17 12:30 (Zofran Inj) 4 mg Q6H PRN IVP 02/05/17 12:30 02/06/17 10:35 (Lipitor) 40 mg HS PO 02/05/17 21:00 02/06/17 21:40 (Cardizem Cd) 240 mg BID PO 02/05/17 21:00 02/06/17 21:40 (Colace) 100 mg BID PO 02/05/17 21:00 02/06/17 21:40 (Synthroid) 25 mcg DAILY@0600 PO 02/06/17 06:00 02/07/17 04:34 (Synthroid) 200 mcg DAILY@0600 PO 02/06/17 06:00 02/07/17 04:34 (Theragran M Tab) 1 tab DAILY PO 02/06/17 09:00 02/06/17 07:42 (Mycostatin Oint) 1 applic Q12HR TOPICAL 02/05/17 21:00 02/06/17 21:43 (Protonix) 40 mg DAILY PO 02/06/17 09:00 02/06/17 07:41 (Xarelto) 20 mg DAILY PO 02/06/17 09:00 02/06/17 07:42 (Flomax) 0.4 mg HS PO 02/05/17 21:00 02/06/17 21:40 (Spiriva Inh) 18 mcg DAILY INH 02/06/17 09:00 02/06/17 07:42 (Desyrel) 200 mg HS PO 02/05/17 21:00 02/06/17 21:40 (Proair Hfa Inh) 2 puff Q4HR PRN INH 02/05/17 12:30 (Cordarone) 200 mg DAILY PO 02/06/17 09:00 02/06/17 07:41 (D50w (Vial) Inj) 25 ml UNSCH PRN IV PUSH 02/05/17 16:00 02/06/17 15:44 (Glucagon Inj) 1 mg UNSCH PRN OTHER 02/05/17 16:00 (Levemir Inj) 15 units Q12HR SQ 02/05/17 21:00 Hold 02/06/17 07:42 (NovoLOG INJ) 7 units TIDPC SQ 02/06/17 09:30 Hold 02/06/17 07:46 (Lactulose Liq) 30 ml DAILY PO 02/05/17 19:00 02/06/17 07:41 (Msir) 15 mg Q4H PRN PO 02/05/17 19:30 (Msir) 30 mg Q8H PRN PO 02/05/17 19:30 02/07/17 04:34 Polyethylene Glycol 17 gm 17 gm DAILY PO 02/06/17 11:15 02/06/17 11:15 (D5W-NS 1000 ml Inj) 1,000 ml @ 84 mls/hr [id number] IV 02/06/17 16:00 02/07/17 04:22 (Flomax) 0.4 mg DAILY PO 02/07/17 11:00 02/07/17 12:50 Urinary Catheter: No Vascular Central Line Catheter: No A/P Problem List: (1) Encephalopathy acute ICD Code: G93.40 Status: Resolved (2) Syncope ICD Code: R55 Status: Resolved (3) Nausea and vomiting ICD Code: R11.2 Status: Resolved (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 (5) Atrial fibrillation ICD Code: I48.91 Status: Chronic (6) Hypertension ICD Code: I10 Status: Chronic (7) Diabetes ICD Code: E11.9 Status: Chronic (8) COPD (chronic obstructive pulmonary disease) ICD Code: J44.9 Status: Chronic (9) Hypothyroidism ICD Code: E03.9 Status: Chronic (10) Constipation ICD Code: K59.00 Status: Resolved (11) Major depressive disorder, recurrent episode, in partial remission ICD Code: F33.41 Status: Acute (12) Hypoglycemia associated with type 2 diabetes mellitus ICD Code: E11.649 Status: Resolved (13) Decreased oral intake ICD Code: R63.8 Status: Resolved (14) Urinary retention ICD Code: R33.9 Status: Acute Assessment and Plan (1) Encephalopathy acute Plan: The patient to the medical floor. Encephalopathy likely secondary to CO2 narcosis. BiPAP ordered however patient refuses to use it. CO2 narcosis could possibly have been caused by over administration of oxygen the previous day as reviewed in medical records. 02/06 Encephalopathy resolved. Continue to monitor neuro status. (2) Syncope Plan: Syncope could've been possibly secondary to orthostatic hypotension vs vasovagal syncope after vomiting. Both are benign and do not require further workup. (3) Nausea and vomiting Plan: Patient has history of gastroparesis and constipation. Last bowel movement on 02/03/17. 02/06 patient still nauseous - continue Zofran as needed. (4) Squamous cell carcinoma of epiglottis Plan: As shown on pathology. Patient has been evaluated by ENT. Apparently there is no metastases so there is a good chance of cure. Patient was offered surgery and radiotherapy. The patient went on 02/04/17 to radiation simulation. (5) Atrial fibrillation Plan: Right controlled. Monitor on telemetry. Diltiazem has been discontinued. Patient on amiodarone 200 mg by mouth twice a day, however is way past the loading dose. I will order an amiodarone level since amiodarone toxicity can also give nausea and vomiting. 02/06 amiodarone level pending. (6) Hypertension Plan: Seems to be stable. Check orthostatic for orthostatic hypotension. Trial currently on Cardizem. (7) Diabetes Plan: Patient with diabetes with hyperglycemia and uncontrolled blood sugars. Patient was on insulin Levemir 15 units twice a day and prandial insulin 7 units with meals and SSI with insulin NovoLog. Continue on same regime and according to patient's blood sugars this will be titrated. 02/06 Patient with persistent hypoglycemia in the 40s twice today at 10:43 AM and again in the afternoon. I will hold insulin Levemir and prandial insulin since patient is not eating. Also start the patient on D5NS. Continue to monitor Accu-Cheks. 02/07 Patient's blood sugars now uncontrolled in the 300's likely due to patient eating more - will resume insulin Levemir and prandial novolog insulin and discontinue D5NS. (8) COPD (chronic obstructive pulmonary disease) Plan: Seems to be stable, continue Spiriva. Keep oxygen saturation between 88 and 92%. (9) Hypothyroidism Plan: Continue levothyroxine at 225 mg daily. TSH obtained in 06/11/17 was 5.460, TSH today 02/05/17 history 0.770. TSH is coming down. Continue same dose and recheck TSH in 4 weeks. (10) Constipation Plan: Abdominal KUB obtained during rapid response shows moderate constipation , reviewed by me. I will order lactulose and MiraLAX as well as Colace. Suppository when necessary. 02/06 Patient is still constipated - Continue Senna and Colace , will give Miralax again and give an injection of Relistor as well as a Fleet enema. 02/07 constipation resolved after above mentioned treatment. Continue senna and Colace and Miralax as needed. (11) Major depressive disorder, recurrent episode, in partial remission Plan: Consultation psychiatry, continue trazodone at bedtime. 02/07 Encephalopathy resolved - Will resume Klonopin. Continue Effexor. Will reconsult psychiatry to clear patient for discharge. Discharge Planning Dc planning under way Pending psych clearance- awaiting placement - patient will need SNF. Problem Qualifiers (1) Diabetes: Qualified Code: E11.65 - Type 2 diabetes mellitus with hyperglycemia, with long -term current use of insulin Favian Keyes MD Feb 07, 2017 09:08
[2017-02-07] MEDS: TAMSULOSIN HCL 0.4 MG CAP PO SCH ×2 (12:50→21:00)
--- NOTE | 2017-02-07 14:37 | HHI.PR ---
Subjective Remarks 76 YOWM with COPD,CHF,AF, s/p Ablation Weaned to 3LNC sat 99% No abd pain Appetite poor Objective Vital Signs Vital Signs Date Time Temp Pulse Resp B/P Pulse Ox O2 Delivery O2 Flow Rate FiO2 02/07/17 07:16 99 Nasal Cannula 2.00 02/07/17 06:00 76 02/07/17 05:30 20 02/07/17 05:00 76 02/07/17 04:23 97.8 78 24 145/70 95 02/07/17 04:00 75 02/07/17 04:00 76 02/07/17 03:00 74 02/07/17 02:00 78 02/07/17 01:00 74 02/07/17 00:08 98.9 77 24 138/75 95 02/07/17 00:00 74 02/06/17 23:00 70 02/06/17 22:00 74 02/06/17 21:00 72 02/06/17 20:03 92 Nasal Cannula 2.00 02/06/17 20:00 98.7 77 20 112/60 92 02/06/17 20:00 72 02/06/17 19:00 72 02/06/17 18:00 70 02/06/17 17:00 72 02/06/17 16:00 76 02/06/17 16:00 98.2 80 18 128/59 94 02/06/17 15:00 70 I/O 02/06/17 02/06/17 02/06/17 02/07/17 02/07/17 02/07/17 06:59 14:59 22:59 06:59 14:59 22:59 Intake Total 1027 ml 807 ml 1140 ml Output Total 950 ml 800 ml 950 ml Balance 77 ml 7 ml 190 ml Intake Oral 480 ml 120 ml 240 ml IV Total 547 ml 687 ml 900 ml Output Urine Total 950 ml 800 ml 950 ml Emesis 0 ml # Bowel Movements 0 1 0 Result Diagram: 02/07/1772902/07/17 0730 Objective Remarks GENERAL: MBMN WM, weak, no distress SKIN: Warm and dry. HEAD: Normocephalic. EYES: No scleral icterus. No injection or drainage. NECK: Supple, trachea midline. No JVD or lymphadenopathy. CARDIOVASCULAR: Regular rate and rhythm without murmurs, gallops, or rubs. RESPIRATORY: Breath sounds equal bilaterally. No accessory muscle use. Decreased BS at Bases GASTROINTESTINAL: Abdomen soft, non-tender, nondistended. MUSCULOSKELETAL: No cyanosis, or edema. BACK: Nontender without obvious deformity. No CVA tenderness. A/P Assessment and Plan COPD Restrictive lung disease AF, s/p ablation Oleural effusion Atelactesis PLAN: Supplement [address] effusion If effusion increases, will need TC Check PFT Xarelto 20 mg daily Amiodarone 200mg daily Bimal Borden MD Feb 07, 2017 14:37
--- NOTE | 2017-02-07 15:56 | MB ---
cc: MD ALCOCER JITENDRA DATE OF CONSULTATION: 02/07/2017. HISTORY OF PRESENT ILLNESS: This patient has a history of major depressive disorder recurrent without any psychosis. He was on and was discharged on the by Dr. Arriaza. Please see Dr. Arriaza's note in detail. He was reconsulted but the patient claimed that he has not been able to walk and he needs to go to a rehab. The reason for the consult was patient with the major depression and clearance for discharge. The and the patient were somewhat concerned that he is not ready for discharge. I understand that the patient is going to go for rehab. The patient denies any suicidal ideation, intentions or plan. Denies any auditory or visual hallucinations. BACKGROUND HISTORY: The patient was born and raised in [place]. He has one brother. He was close to both of his parents. The patient describes his childhood as very happy. He denied any physical, verbal or sexual abuse growing up. 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 He denied any alcohol or drug use and/or abuse. 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 He has been for 20 years and has his own two kids and his has three children. MENTAL STATUS EXAMINATION: This is a 76-year-old white male who looks about the same as his stated age. He was alert and oriented x2, cooperative, casually dressed. His speech was slow without any evidence of loose associations or flight of ideas or pressured speech. His mood was described as feeling frustrated because he is not able to walk and feels weak and depressed but denied any suicidal ideation, intentions or plans. Denied any auditory or visual hallucinations. There was no evidence of any formed paranoid delusion at this time. He seems to be of average intelligence with mildly impaired recent memory. His insight is fair. His judgment seems to be okay on hypothetical situation. IMPRESSION: Major depression chronic recurrent. RECOMMENDATIONS: At this time, I would suggest that he may continue with his medication that he was discharged on from and once he is ready for rehab, and if he gets into any further depression, please reconsult. Thank you very much for allowing me to participate in the care of this patient. Ji FUCHS /3:18 PM /3:49 PM
[2017-02-07] MEDS: MORPHINE SULFATE 15 MG TAB PO PRN ×2 (18:06→18:34)
[2017-02-07] MEDS: fentaNYL 50 MCG/HR PATCH TD SCH (19:55)
[2017-02-07] MEDS: INSULIN DETEMIR 100 UNITS/ML VIAL SQ SCH (21:45)
[2017-02-07] MEDS: ATORVASTATIN 40 MG TAB PO SCH (21:45)
[2017-02-07] MEDS: traZODone HCL 100 MG TAB PO SCH (21:56)
[2017-02-08] VITALS (25 sets, daily range): BP systolic 103–109; BP diastolic 51–55; PULSE 62–76; RESP 18–20; TEMP 97.5–98.6; O2SAT 93–95
[2017-02-08 05:00] LABS: AUTOMATED NEUTROPHIL # 9.6 TH/MM3 (1.8-7.7); BASOPHIL # 0.2 TH/MM3 (0-0.2); BASOPHIL % 1.7 % (0.0-2.0); EOSINOPHIL % 0.3 % (0.0-4.0); LYMPH % 6.1 % (9.0-44.0); LYMPHOCYTE # 0.7 TH/MM3 (1.0-4.8); MEAN CELL VOLUME 83.3 FL (80.0-100.0); MEAN CORPUSCULAR HEMOGLOBIN 27.8 PG (27.0-34.0); MEAN CORPUSCULAR HGB CONC 33.4 % (32.0-36.0); NEUT % 86.9 % (16.0-70.0); PLATELET COUNT 222 TH/MM3 (150-450); RED BLOOD COUNT 3.72 MIL/MM3 (4.50-5.90); RED CELL DISTRIBUTION WIDTH 17.6 % (11.6-17.2); WHITE BLOOD COUNT 11.1 TH/MM3 (4.0-11.0)
[2017-02-08 05:24] LABS: ANION GAP 5 MEQ/L (5-15); AST (GOT) 25 U/L (15-37); BICARBONATE 32.9 MEQ/L (21.0-32.0); BLOOD UREA NITROGEN 19 MG/DL (7-18); CHLORIDE 103 MEQ/L (98-107); GLOMERULAR FILTRATION RATE 143 ML/MIN (>89); HEMO FLAGS AUTO DIFF; MAGNESIUM 1.9 MG/DL (1.5-2.5); POTASSIUM 3.8 MEQ/L (3.5-5.1); SODIUM (NA) 141 MEQ/L (136-145)
[2017-02-08 05:27] LABS: ALKALINE PHOSPHATASE 63 U/L (45-117); ALT (GPT) 66 U/L (12-78); TOTAL BILIRUBIN ADULT 0.4 MG/DL (0.2-1.0)
[2017-02-08] MEDS: LEVOTHYROXINE SODIUM 25 MCG TAB PO SCH ×2 (06:00→13:00)
[2017-02-08] MEDS: LEVOTHYROXINE SODIUM 200 MCG TAB PO SCH (06:10)
[2017-02-08] MEDS: INSULIN ASPART SUPPLEMENTAL SCALE SQ SCH ×4 (06:11→21:00)
[2017-02-08] MEDS: RESP: ALBUTEROL 2.5 MG/IPRATROPIUM 0.5 MG NEB (SCH) INH ×4 (07:54→20:26)
[2017-02-08] MEDS: SODIUM CHLORIDE 0.9% FLUSH 5 ML FLUSH FLUSH SCH ×2 (09:00→21:34)
[2017-02-08] MEDS: VENLAFAXINE HCL XR 75 MG CAP PO SCH (09:00)
[2017-02-08] MEDS: PANTOPRAZOLE SOD 40 MG DELAYED RELEASE TAB PO SCH (09:06)
[2017-02-08] MEDS: MULTIVITAMINS/MINERALS THERAPEUTIC TAB PO SCH (09:06)
[2017-02-08] MEDS: RIVAROXABAN 20 MG TAB PO SCH (09:07)
[2017-02-08] MEDS: MORPHINE SULFATE 30 MG TAB PO PRN ×2 (09:07→19:50)
[2017-02-08] MEDS: AMIODARONE 200 MG TAB PO SCH (09:07)
[2017-02-08] MEDS: DILTIAZEM-CD 240 MG CAP ER PO SCH ×2 (09:07→21:33)
[2017-02-08] MEDS: DOCUSATE SODIUM 100 MG CAP PO SCH ×2 (09:08→21:33)
[2017-02-08] MEDS: TAMSULOSIN HCL 0.4 MG CAP PO SCH ×2 (09:08→21:33)
[2017-02-08] MEDS: INSULIN DETEMIR 100 UNITS/ML VIAL SQ SCH ×2 (09:09→21:00)
[2017-02-08] MEDS: POLYETHYLENE GLYCOL 17 GM PKG PO SCH (09:09)
[2017-02-08] MEDS: LACTULOSE SYRUP 20 GM/30 ML CUP PO SCH (09:09)
[2017-02-08] MEDS: TIOTROPIUM BROMIDE 18 MCG INH INH SCH (09:17)
[2017-02-08] MEDS: INSULIN ASPART 1,000 UNITS/10 ML VIAL SQ SCH ×3 (09:30→18:30)
[2017-02-08 10:09] LABS: BANDS 6 % (0-6); EOSINOPHILS 1 % (0-4); MYELOCYTES 2 % (0-0); NEUTROPHIL # MANUAL DIFF 9.3 TH/MM3 (1.8-7.7); POLYS (SEG NEUTROPHILS) 76 % (16-70); WBC DIFF SAMPLE 100
[2017-02-08 10:11] LABS: ACANTHOCYTES 1+ (NORMAL); PLATELET ESTIMATE SMEAR NORMAL (NORMAL); PLATELET MORPHOLOGY NORMAL (NORMAL); SCAN/DIFF FINAL DIFF MANUAL
--- NOTE | 2017-02-08 11:46 | HHI.PR ---
Subjective Remarks Patient c/o of nausea and abdominal discomfort denies abdominal pain denies vomiting states appetite is poor denies fevers or chills feels weak Objective Vitals Vital Signs Date Time Temp Pulse Resp B/P Pulse Ox O2 Delivery O2 Flow Rate FiO2 02/08/17 10:33 69 02/08/17 09:00 66 02/08/17 08:00 62 02/08/17 07:55 93 Nasal Cannula 2.00 02/08/17 07:45 98.6 68 18 109/54 95 02/08/17 07:45 64 02/08/17 06:00 64 02/08/17 05:14 66 02/08/17 04:00 98.5 66 20 103/51 95 02/08/17 03:00 67 02/08/17 02:00 66 02/08/17 01:00 67 02/08/17 00:00 98.0 69 20 103/51 95 02/08/17 00:00 76 02/07/17 23:39 76 02/07/17 21:00 98.0 76 20 115/53 95 02/07/17 20:00 76 02/07/17 19:00 76 02/07/17 16:00 98.0 78 20 122/56 96 02/07/17 16:00 72 02/07/17 12:00 78 02/07/17 12:00 98.0 78 20 120/54 96 I/O 02/07/17 02/07/17 02/07/17 02/08/17 02/08/17 02/08/17 07:00 15:00 23:00 07:00 15:00 23:00 Intake Total 1140 ml 1590 ml 790 ml Output Total 950 ml 850 ml 550 ml Balance 190 ml 740 ml 240 ml Intake Oral 240 ml 720 ml 240 ml IV Total 900 ml 870 ml 550 ml Output Urine Total 950 ml 850 ml 550 ml Emesis 0 ml 0 ml # Bowel Movements 0 0 0 Result Diagram: 02/08/1743502/08/17435 Objective Remarks GENERAL: This is a well-nourished, well-developed patient, ill appearing. SKIN: No rashes, ecchymoses or lesions. Cool and dry. HEAD: Atraumatic. Normocephalic. No temporal or scalp tenderness. EYES: Pupils equal round and reactive. Extraocular motions intact. No scleral icterus. No injection or drainage. ENT: Nose without bleeding, purulent drainage or septal hematoma. Throat without erythema, tonsillar hypertrophy or exudate. Uvula midline. Airway patent. NECK: Trachea midline. No JVD or lymphadenopathy. Supple, nontender, no meningeal signs. CARDIOVASCULAR: Regular rate and rhythm without murmurs, gallops, or rubs. RESPIRATORY: Clear to auscultation. Breath sounds equal bilaterally. No wheezes , rales, or rhonchi. GASTROINTESTINAL: Abdomen soft, non-tender, non distended. No hepato- splenomegaly, or palpable masses. No guarding. MUSCULOSKELETAL: Extremities without clubbing, cyanosis, or edema. No joint tenderness, effusion, or edema noted. No calf tenderness. Negative Homans sign bilaterally. NEUROLOGICAL: Awake and alert. Cranial nerves II through XII intact. Motor and sensory grossly within normal limits. Five out of 5 muscle strength in all muscle groups. Normal speech. Procedures none Medications and IVs Current Medications Medications (Trade) Dose Ordered Sig/Melissa Route Start Time Stop Time Status Last Admin (NS Flush) 2 ml UNSCH PRN FLUSH 02/05/17 12:30 (NS Flush) 2 ml BID FLUSH 02/05/17 21:00 02/08/17 09:00 (Tylenol) 650 mg Q4H PRN PO 02/05/17 12:30 (Zofran Inj) 4 mg Q6H PRN IVP 02/05/17 12:30 02/06/17 10:35 (Lipitor) 40 mg HS PO 02/05/17 21:00 02/07/17 21:45 (Cardizem Cd) 240 mg BID PO 02/05/17 21:00 02/08/17 09:07 (Colace) 100 mg BID PO 02/05/17 21:00 02/08/17 09:08 (Synthroid) 25 mcg DAILY@0600 PO 02/06/17 06:00 02/08/17 13:00 (Synthroid) 200 mcg DAILY@0600 PO 02/06/17 06:00 02/08/17 06:10 (Theragran M Tab) 1 tab DAILY PO 02/06/17 09:00 02/08/17 09:06 (Mycostatin Oint) 1 applic Q12HR TOPICAL 02/05/17 21:00 02/07/17 09:00 (Protonix) 40 mg DAILY PO 02/06/17 09:00 02/08/17 09:06 (Xarelto) 20 mg DAILY PO 02/06/17 09:00 02/08/17 09:07 (Flomax) 0.4 mg HS PO 02/05/17 21:00 02/07/17 21:00 (Spiriva Inh) 18 mcg DAILY INH 02/06/17 09:00 02/08/17 09:17 (Desyrel) 200 mg HS PO 02/05/17 21:00 02/07/17 21:56 (Proair Hfa Inh) 2 puff Q4HR PRN INH 02/05/17 12:30 (Cordarone) 200 mg DAILY PO 02/06/17 09:00 02/08/17 09:07 (D50w (Vial) Inj) 25 ml UNSCH PRN IV PUSH 02/05/17 16:00 02/06/17 15:44 (Glucagon Inj) 1 mg UNSCH PRN OTHER 02/05/17 16:00 (Levemir Inj) 15 units Q12HR SQ 02/05/17 21:00 02/08/17 09:09 (NovoLOG INJ) 7 units TIDPC SQ 02/06/17 09:30 02/06/17 07:46 (Lactulose Liq) 30 ml DAILY PO 02/05/17 19:00 02/08/17 09:09 (Msir) 15 mg Q4H PRN PO 02/05/17 19:30 02/07/17 18:34 (Msir) 30 mg Q8H PRN PO 02/05/17 19:30 02/08/17 09:07 (Miralax) 17 gm DAILY PO 02/06/17 11:15 02/08/17 09:09 (Flomax) 0.4 mg DAILY PO 02/07/17 11:00 02/08/17 09:08 (Effexor Xr) 225 mg DAILY PO 02/08/17 09:00 02/08/17 09:00 (Duragesic 50 Mcg Patch.72 Hr) 1 patch Q72H TD 02/07/17 20:00 02/07/17 19:55 Miscellaneous Information 1 Q72H TD 02/10/17 20:00 (Baciguent Oint) 1 applic Q12HR TOP 02/08/17 12:00 (Megace Liq) 400 mg DAILY PO 02/08/17 12:00 02/08/17 12:59 Urinary Catheter: No Vascular Central Line Catheter: No A/P Problem List: (1) Encephalopathy acute ICD Code: G93.40 Status: Resolved (2) Syncope ICD Code: R55 Status: Resolved (3) Nausea and vomiting ICD Code: R11.2 Status: Resolved (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 (5) Atrial fibrillation ICD Code: I48.91 Status: Chronic (6) Hypertension ICD Code: I10 Status: Chronic (7) Diabetes ICD Code: E11.9 Status: Chronic (8) COPD (chronic obstructive pulmonary disease) ICD Code: J44.9 Status: Chronic (9) Hypothyroidism ICD Code: E03.9 Status: Chronic (10) Constipation ICD Code: K59.00 Status: Resolved (11) Major depressive disorder, recurrent episode, in partial remission ICD Code: F33.41 Status: Acute (12) Hypoglycemia associated with type 2 diabetes mellitus ICD Code: E11.649 Status: Resolved (13) Decreased oral intake ICD Code: R63.8 Status: Resolved (14) Urinary retention ICD Code: R33.9 Status: Acute (15) Poor appetite ICD Code: R63.0 Status: Acute Plan: Will start patient on Megace. Consult dietitian. (16) Severe protein-calorie malnutrition ICD Code: E43 Status: Acute Plan: Patient with low albumin, poor appetite. Consult dietitian, will give Glucerna shakes with meals. Assessment and Plan (1) Encephalopathy acute Plan: The patient to the medical floor. Encephalopathy likely secondary to CO2 narcosis. BiPAP ordered however patient refuses to use it. CO2 narcosis could possibly have been caused by over administration of oxygen the previous day as reviewed in medical records. 02/06 Encephalopathy resolved. Continue to monitor neuro status. (2) Syncope Plan: Syncope could've been possibly secondary to orthostatic hypotension vs vasovagal syncope after vomiting. Both are benign and do not require further workup. (3) Nausea and vomiting Plan: Patient has history of gastroparesis and constipation. Last bowel movement on 02/03/17. 02/06 patient still nauseous - continue Zofran as needed. (4) Squamous cell carcinoma of epiglottis Plan: As shown on pathology. Patient has been evaluated by ENT. Apparently there is no metastases so there is a good chance of cure. Patient was offered surgery and radiotherapy. Patient elected radiotherapy. Radiation oncology following. (5) Atrial fibrillation Plan: Right controlled. Monitor on telemetry. Diltiazem has been discontinued. Patient on amiodarone 200 mg by mouth twice a day, however is way past the loading dose. I will order an amiodarone level since amiodarone toxicity can also give nausea and vomiting. SP ablation. 02/08 amiodarone level still pending (6) Hypertension Plan: Seems to be stable. Continue Cardizem. (7) Diabetes Plan: Patient with diabetes with hyperglycemia and uncontrolled blood sugars. Patient was on insulin Levemir 15 units twice a day and prandial insulin 7 units with meals and SSI with insulin NovoLog. Continue on same regime and according to patient's blood sugars this will be titrated. 02/06 Patient with persistent hypoglycemia in the 40s twice today at 10:43 AM and again in the afternoon. I will hold insulin Levemir and prandial insulin since patient is not eating. Also start the patient on D5NS. Continue to monitor Accu-Cheks. 02/07 Patient's blood sugars now uncontrolled in the 300's likely due to patient eating more - will resume insulin Levemir and prandial novolog insulin and discontinue D5NS. 02/08 Blood sugar level improved. No further hypoglycemia. (8) COPD (chronic obstructive pulmonary disease) Plan: Seems to be stable, continue Spiriva. Keep oxygen saturation between 88 and 92%. (9) Hypothyroidism Plan: Continue levothyroxine at 225 mg daily. TSH obtained in 06/11/17 was 5.460, TSH today 02/05/17 history 0.770. TSH is coming down. Continue same dose and recheck TSH in 4 weeks. (10) Constipation Plan: Abdominal KUB obtained during rapid response shows moderate constipation , reviewed by me. I will order lactulose and MiraLAX as well as Colace. Suppository when necessary. 02/06 Patient is still constipated - Continue Senna and Colace , will give Miralax again and give an injection of Relistor as well as a Fleet enema. 02/07 constipation resolved after above mentioned treatment. Continue senna and Colace and Miralax as needed. (11) Major depressive disorder, recurrent episode, in partial remission Plan: Consultation psychiatry, continue trazodone at bedtime. 02/07 Encephalopathy resolved - Will resume Klonopin. Continue Effexor. 02/08 Appreciate psychiatry recommendations. Patient clear for DC. Discharge Planning Dc planning under way Pending psych clearance- awaiting placement - patient will need SNF. Problem Qualifiers (1) Diabetes: Qualified Code: E11.65 - Type 2 diabetes mellitus with hyperglycemia, with long -term current use of insulin Favian Keyes MD Feb 08, 2017 11:46
[2017-02-08] MEDS: MEGESTROL ACETATE SUSP 400 MG/10 ML CUP PO SCH (12:59)
[2017-02-08] MEDS: BACITRACIN TOP OINT 15 GM TUBE TOP SCH ×2 (13:57→21:38)
[2017-02-08] MEDS: NYSTATIN 100,000 U/GM OINT 15 GM TUBE TOPICAL SCH ×2 (13:57→21:38)
[2017-02-08] MEDS: MORPHINE SULFATE 15 MG TAB PO PRN (15:04)
--- NOTE | 2017-02-08 15:11 | HHI.PR ---
Subjective Remarks 76 YOWM with COPD,CHF,AF, s/p Ablation Weaned to 3LNC No abd pain Appetite poor Up in chair, feels better Objective Vital Signs Vital Signs Date Time Temp Pulse Resp B/P Pulse Ox O2 Delivery O2 Flow Rate FiO2 02/08/17 14:22 70 02/08/17 13:37 69 02/08/17 12:11 68 02/08/17 12:11 97.9 68 18 109/54 94 02/08/17 10:33 69 02/08/17 09:00 66 02/08/17 08:00 62 02/08/17 07:55 93 Nasal Cannula 2.00 02/08/17 07:45 98.6 68 18 109/54 95 02/08/17 07:45 64 02/08/17 06:00 64 02/08/17 05:14 66 02/08/17 04:00 98.5 66 20 103/51 95 02/08/17 03:00 67 02/08/17 02:00 66 02/08/17 01:00 67 02/08/17 00:00 98.0 69 20 103/51 95 02/08/17 00:00 76 02/07/17 23:39 76 02/07/17 21:00 98.0 76 20 115/53 95 02/07/17 20:00 76 02/07/17 19:00 76 02/07/17 16:00 98.0 78 20 122/56 96 02/07/17 16:00 72 I/O 02/07/17 02/07/17 02/07/17 02/08/17 02/08/17 02/08/17 07:00 15:00 23:00 07:00 15:00 23:00 Intake Total 1140 ml 1590 ml 790 ml Output Total 950 ml 850 ml 550 ml Balance 190 ml 740 ml 240 ml Intake Oral 240 ml 720 ml 240 ml IV Total 900 ml 870 ml 550 ml Output Urine Total 950 ml 850 ml 550 ml Emesis 0 ml 0 ml Bladder Scan Volume Amount 28 ml # Bowel Movements 0 0 0 Result Diagram: 02/08/1743502/08/17435 Objective Remarks GENERAL: MBMN WM, weak, no distress SKIN: Warm and dry. HEAD: Normocephalic. EYES: No scleral icterus. No injection or drainage. NECK: Supple, trachea midline. No JVD or lymphadenopathy. CARDIOVASCULAR: Regular rate and rhythm without murmurs, gallops, or rubs. RESPIRATORY: Breath sounds equal bilaterally. No accessory muscle use. Decreased BS at Bases GASTROINTESTINAL: Abdomen soft, non-tender, nondistended. MUSCULOSKELETAL: No cyanosis, or edema. BACK: Nontender without obvious deformity. No CVA tenderness. A/P Assessment and Plan COPD Restrictive lung disease AF, s/p ablation Oleural effusion Atelactesis PLAN: Supplement [address] effusion If effusion increases, will need TC Check PFT Xarelto 20 mg daily Amiodarone 200mg daily DC plans for rehab [facility] pt and his . Bimal Borden MD Feb 08, 2017 15:11
[2017-02-08] MEDS ORDERED: SODIUM CHLOR 0.9% 1000 ML INJ 1,000 ML IV SCH (18:00)
[2017-02-08] MEDS ORDERED: SODIUM CHLOR 0.9% 1000 ML INJ 1,000 ML IV ONE (18:00)
[2017-02-08] MEDS: ATORVASTATIN 40 MG TAB PO SCH (21:33)
[2017-02-08] MEDS: traZODone HCL 100 MG TAB PO SCH (21:33)
[2017-02-09] VITALS (27 sets, daily range): BP systolic 119–141; BP diastolic 59–77; PULSE 68–84; RESP 17–20; TEMP 98–98.8; O2SAT 91–100
[2017-02-09] MEDS: ALBUTEROL SULFATE 90 MCG/ACT HFA 8 GM INHALER INH PRN (05:53)
[2017-02-09] MEDS: LEVOTHYROXINE SODIUM 200 MCG TAB PO SCH (06:13)
[2017-02-09] MEDS: INSULIN ASPART SUPPLEMENTAL SCALE SQ SCH ×4 (06:17→21:00)
[2017-02-09 07:04] LABS: AUTOMATED NEUTROPHIL # 9.3 TH/MM3 (1.8-7.7); BASOPHIL % 0.4 % (0.0-2.0); HEMATOCRIT 34.8 % (39.0-51.0); HEMO FLAGS DIFF FINAL; LYMPH % 4.8 % (9.0-44.0); LYMPHOCYTE # 0.5 TH/MM3 (1.0-4.8); MEAN CELL VOLUME 83.8 FL (80.0-100.0); MEAN CORPUSCULAR HEMOGLOBIN 27.9 PG (27.0-34.0); MEAN CORPUSCULAR HGB CONC 33.3 % (32.0-36.0); MONO % 6.1 % (0.0-8.0); NEUT % 88.7 % (16.0-70.0); PLATELET COUNT 207 TH/MM3 (150-450); RED BLOOD COUNT 4.16 MIL/MM3 (4.50-5.90); RED CELL DISTRIBUTION WIDTH 17.3 % (11.6-17.2); WHITE BLOOD COUNT 10.5 TH/MM3 (4.0-11.0)
[2017-02-09 07:25] LABS: BICARBONATE 30.1 MEQ/L (21.0-32.0); POTASSIUM 3.7 MEQ/L (3.5-5.1)
[2017-02-09] MEDS: RESP: ALBUTEROL 2.5 MG/IPRATROPIUM 0.5 MG NEB (SCH) INH ×2 (07:36→11:25)
[2017-02-09] MEDS: MEGESTROL ACETATE SUSP 400 MG/10 ML CUP PO SCH ×2 (09:00→09:08)
[2017-02-09] MEDS: VENLAFAXINE HCL XR 75 MG CAP PO SCH (09:00)
[2017-02-09] MEDS: MULTIVITAMINS/MINERALS THERAPEUTIC TAB PO SCH (09:07)
[2017-02-09] MEDS: LACTULOSE SYRUP 20 GM/30 ML CUP PO SCH (09:07)
[2017-02-09] MEDS: TIOTROPIUM BROMIDE 18 MCG INH INH SCH (09:07)
[2017-02-09] MEDS: DOCUSATE SODIUM 100 MG CAP PO SCH ×2 (09:07→21:25)
[2017-02-09] MEDS: DILTIAZEM-CD 240 MG CAP ER PO SCH ×2 (09:08→21:24)
[2017-02-09] MEDS: AMIODARONE 200 MG TAB PO SCH (09:08)
[2017-02-09] MEDS: INSULIN DETEMIR 100 UNITS/ML VIAL SQ SCH ×2 (09:09→21:00)
[2017-02-09] MEDS: SODIUM CHLORIDE 0.9% FLUSH 5 ML FLUSH FLUSH SCH ×2 (09:10→21:28)
[2017-02-09] MEDS: NYSTATIN 100,000 U/GM OINT 15 GM TUBE TOPICAL SCH ×2 (09:11→21:00)
[2017-02-09] MEDS: BACITRACIN TOP OINT 15 GM TUBE TOP SCH ×2 (09:13→21:00)
[2017-02-09] MEDS: POLYETHYLENE GLYCOL 17 GM PKG PO SCH (09:13)
[2017-02-09] MEDS: PANTOPRAZOLE SOD 40 MG DELAYED RELEASE TAB PO SCH (09:14)
[2017-02-09] MEDS: RIVAROXABAN 20 MG TAB PO SCH (09:14)
[2017-02-09] MEDS: TAMSULOSIN HCL 0.4 MG CAP PO SCH ×2 (09:15→21:25)
[2017-02-09] MEDS: INSULIN ASPART 1,000 UNITS/10 ML VIAL SQ SCH ×3 (09:30→17:56)
--- NOTE | 2017-02-09 10:16 | HHI.PR ---
Subjective Remarks as per RN patient not eating much Patient states however he ate dinner - brought [employer] and he ate well. Patient had low urine output yesterday - improved after IVF WBC trending down denies abdominal pain/nausea or vomiting denies cp/sob states this am had some phlegm but felt better after he coughed it up. Objective Vitals Vital Signs Date Time Temp Pulse Resp B/P Pulse Ox O2 Delivery O2 Flow Rate FiO2 02/09/17 07:30 98.0 79 18 121/59 95 02/09/17 07:00 79 02/09/17 06:00 76 02/09/17 05:57 96 Nasal Cannula 3.00 02/09/17 05:00 76 02/09/17 04:17 75 02/09/17 04:17 98.0 74 20 141/66 95 02/09/17 04:00 96 Nasal Cannula 3.00 02/09/17 03:07 74 02/09/17 02:10 71 02/09/17 01:00 71 02/09/17 00:00 70 02/09/17 00:00 98.5 68 20 134/64 95 02/09/17 00:00 95 Nasal Cannula 3.00 02/08/17 23:00 66 02/08/17 22:00 66 02/08/17 21:00 66 02/08/17 20:00 95 Nasal Cannula 3.00 02/08/17 20:00 70 02/08/17 20:00 98.5 66 20 103/51 95 02/08/17 19:00 68 02/08/17 18:06 65 02/08/17 17:01 71 02/08/17 16:21 69 02/08/17 15:32 97.5 67 18 108/55 95 02/08/17 15:32 68 02/08/17 15:20 94 Nasal Cannula 2.00 02/08/17 14:22 70 02/08/17 13:37 69 02/08/17 12:11 68 02/08/17 12:11 97.9 68 18 109/54 94 02/08/17 10:33 69 I/O 02/08/17 02/08/17 02/08/17 02/09/17 02/09/17 02/09/17 07:00 15:00 23:00 07:00 15:00 23:00 Intake Total 790 ml 1766 ml 1570 ml Output Total 550 ml 250 ml 450 ml Balance 240 ml 1516 ml 1120 ml Intake Oral 240 ml 1080 ml 420 ml IV Total 550 ml 686 ml 1150 ml Output Urine Total 550 ml 250 ml 450 ml Emesis 0 ml 0 ml Bladder Scan Volume Amount 28 ml # Bowel Movements 0 0 Result Diagram: 02/09/1732 02/09/17631 Objective Remarks GENERAL: This is a well-nourished, well-developed patient, ill appearing. SKIN: No rashes, ecchymoses or lesions. Cool and dry. HEAD: Atraumatic. Normocephalic. No temporal or scalp tenderness. EYES: Pupils equal round and reactive. Extraocular motions intact. No scleral icterus. No injection or drainage. ENT: Nose without bleeding, purulent drainage or septal hematoma. Throat without erythema, tonsillar hypertrophy or exudate. Uvula midline. Airway patent. NECK: Trachea midline. No JVD or lymphadenopathy. Supple, nontender, no meningeal signs. CARDIOVASCULAR: Regular rate and rhythm without murmurs, gallops, or rubs. RESPIRATORY: There is some ronchi bilaterally, no wheezing or crackles auscultated. GASTROINTESTINAL: Abdomen soft, non-tender, non distended. No hepato- splenomegaly, or palpable masses. No guarding. MUSCULOSKELETAL: Extremities without clubbing, cyanosis, or edema. No joint tenderness, effusion, or edema noted. No calf tenderness. Negative Homans sign bilaterally. NEUROLOGICAL: Awake and alert. Cranial nerves II through XII intact. Motor and sensory grossly within normal limits. Five out of 5 muscle strength in all muscle groups. Normal speech. Procedures none Medications and IVs Current Medications Medications (Trade) Dose Ordered Sig/Melissa Route Start Time Stop Time Status Last Admin (NS Flush) 2 ml UNSCH PRN FLUSH 02/05/17 12:30 (NS Flush) 2 ml BID FLUSH 02/05/17 21:00 02/09/17 09:10 (Tylenol) 650 mg Q4H PRN PO 02/05/17 12:30 (Zofran Inj) 4 mg Q6H PRN IVP 02/05/17 12:30 02/06/17 10:35 (Lipitor) 40 mg HS PO 02/05/17 21:00 02/08/17 21:33 (Cardizem Cd) 240 mg BID PO 02/05/17 21:00 02/09/17 09:08 (Colace) 100 mg BID PO 02/05/17 21:00 02/09/17 09:07 (Synthroid) 25 mcg DAILY@0600 PO 02/06/17 06:00 02/08/17 13:00 (Synthroid) 200 mcg DAILY@0600 PO 02/06/17 06:00 02/09/17 06:13 (Theragran M Tab) 1 tab DAILY PO 02/06/17 09:00 02/09/17 09:07 (Mycostatin Oint) 1 applic Q12HR TOPICAL 02/05/17 21:00 02/09/17 09:11 (Protonix) 40 mg DAILY PO 02/06/17 09:00 02/09/17 09:14 (Xarelto) 20 mg DAILY PO 02/06/17 09:00 02/09/17 09:14 (Flomax) 0.4 mg HS PO 02/05/17 21:00 02/08/17 21:33 (Spiriva Inh) 18 mcg DAILY INH 02/06/17 09:00 02/09/17 09:07 (Desyrel) 200 mg HS PO 02/05/17 21:00 02/08/17 21:33 (Proair Hfa Inh) 2 puff Q4HR PRN INH 02/05/17 12:30 02/09/17 05:53 (Cordarone) 200 mg DAILY PO 02/06/17 09:00 02/09/17 09:08 (D50w (Vial) Inj) 25 ml UNSCH PRN IV PUSH 02/05/17 16:00 02/06/17 15:44 (Glucagon Inj) 1 mg UNSCH PRN OTHER 02/05/17 16:00 (Levemir Inj) 15 units Q12HR SQ 02/05/17 21:00 02/09/17 09:09 (NovoLOG INJ) 7 units TIDPC SQ 02/06/17 09:30 02/06/17 07:46 (Lactulose Liq) 30 ml DAILY PO 02/05/17 19:00 02/09/17 09:07 (Msir) 15 mg Q4H PRN PO 02/05/17 19:30 02/08/17 15:04 (Msir) 30 mg Q8H PRN PO 02/05/17 19:30 02/08/17 19:50 (Miralax) 17 gm DAILY PO 02/06/17 11:15 02/09/17 09:13 (Flomax) 0.4 mg DAILY PO 02/07/17 11:00 02/09/17 09:15 (Effexor Xr) 225 mg DAILY PO 02/08/17 09:00 02/09/17 09:00 (Duragesic 50 Mcg Patch.72 Hr) 1 patch Q72H TD 02/07/17 20:00 02/07/17 19:55 Miscellaneous Information 1 Q72H TD 02/10/17 20:00 (Baciguent Oint) 1 applic Q12HR TOP 02/08/17 12:00 02/09/17 09:13 Megestrol Acetate 400 mg 400 mg DAILY PO 02/08/17 12:00 02/08/17 12:59 (NS 1000 ml Inj) 1,000 ml @ 100 mls/hr Q10H IV 02/08/17 18:00 02/09/17 04:00 Urinary Catheter: No Vascular Central Line Catheter: No A/P Problem List: (1) Encephalopathy acute ICD Code: G93.40 Status: Resolved (2) Syncope ICD Code: R55 Status: Resolved (3) Nausea and vomiting ICD Code: R11.2 Status: Resolved (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 (5) Atrial fibrillation ICD Code: I48.91 Status: Chronic (6) Hypertension ICD Code: I10 Status: Chronic (7) Diabetes ICD Code: E11.9 Status: Chronic (8) COPD (chronic obstructive pulmonary disease) ICD Code: J44.9 Status: Chronic (9) Hypothyroidism ICD Code: E03.9 Status: Chronic (10) Constipation ICD Code: K59.00 Status: Resolved (11) Major depressive disorder, recurrent episode, in partial remission ICD Code: F33.41 Status: Acute (12) Hypoglycemia associated with type 2 diabetes mellitus ICD Code: E11.649 Status: Resolved (13) Decreased oral intake ICD Code: R63.8 Status: Resolved (14) Urinary retention ICD Code: R33.9 Status: Acute (15) Poor appetite ICD Code: R63.0 Status: Acute Plan: Patient has been started on Megace, however the patient is refusing. Patient states appetite is better, however RN says otherwise. We'll continue to monitor fluid intake, if decreased and will request a calorie count. Dietitian has been consulted while the patient was in psychiatric unit. 1800 ADA diet and Glucerna shakes 3 times a day recommended. (16) Severe protein-calorie malnutrition ICD Code: E43 Status: Acute Plan: Patient with poor appetite and low albumin. Dietitian consulted. Continue Glucerna shakes by mouth 3 times a day, will switch the patient's heart healthy diet to an 1800 ADA diet. (17) Pleural effusion ICD Code: J90 Status: Acute Plan: CT of the chest reviewed by me obtained 02/04/17 showed bibasilar consolidation and minimal patchy ground glass densities in the upper lobes. Moderate right and small left pleural effusion. Repeat chest x-ray to follow-up on effusions. Pulmonary following - appreciate input. (18) Leukocytosis ICD Code: D72.829 Status: Resolved Plan: Patient had been on steroids which have been discontinued. No signs of infections - patient afebrile. WBC trending down and now 10 K. Continue to monitor cbc with diff. (19) Oliguria ICD Code: R34 Status: Acute Plan: Patient had decreased urine output yesterday 02/08. Patient is sp IV normal saline bolus now urine output better. Will DC IV fluids and encourage oral intake. (20) Chronic diastolic (congestive) heart failure ICD Code: I50.32 Status: Chronic Plan: EF 55-60% with no noted valvular dysfunction on echocardiograms 09/14 and 12/16. DC IV fluids to avoid fluid overload - will resume lasix once urine output appropriate and patient is drinking fluids appropriately. Assessment and Plan (1) Encephalopathy acute Plan: The patient to the medical floor. Encephalopathy likely secondary to CO2 narcosis. BiPAP ordered however patient refuses to use it. CO2 narcosis could possibly have been caused by over administration of oxygen the previous day as reviewed in medical records. 02/06 Encephalopathy resolved. Continue to monitor neuro status. (2) Syncope Plan: Syncope could've been possibly secondary to orthostatic hypotension vs vasovagal syncope after vomiting. Both are benign and do not require further workup. (3) Nausea and vomiting Plan: Patient has history of gastroparesis and constipation. Last bowel movement on 02/03/17. 02/06 patient still nauseous - continue Zofran as needed. (4) Squamous cell carcinoma of epiglottis Plan: As shown on pathology. Patient has been evaluated by ENT. Apparently there is no metastases so there is a good chance of cure. Patient was offered surgery and radiotherapy. Patient elected radiotherapy. Radiation oncology following. (5) Atrial fibrillation Plan: Rate controlled. Monitor on telemetry. Diltiazem has been discontinued. Patient on amiodarone 200 mg by mouth twice a day, however is way past the loading dose. I will order an amiodarone level since amiodarone toxicity can also give nausea and vomiting. SP ablation. 02/08 amiodarone level still pending (6) Hypertension Plan: Seems to be stable. Continue Cardizem. (7) Diabetes Plan: Patient with diabetes with hyperglycemia and uncontrolled blood sugars. Patient was on insulin Levemir 15 units twice a day and prandial insulin 7 units with meals and SSI with insulin NovoLog. Continue on same regime and according to patient's blood sugars this will be titrated. 02/06 Patient with persistent hypoglycemia in the 40s twice today at 10:43 AM and again in the afternoon. I will hold insulin Levemir and prandial insulin since patient is not eating. Also start the patient on D5NS. Continue to monitor Accu-Cheks. 02/07 Patient's blood sugars now uncontrolled in the 300's likely due to patient eating more - will resume insulin Levemir and prandial novolog insulin and discontinue D5NS. 02/08 Blood sugar level improved. No further hypoglycemia. (8) COPD (chronic obstructive pulmonary disease) Plan: Seems to be stable, continue Spiriva. Keep oxygen saturation between 88 and 92%. (9) Hypothyroidism Plan: Continue levothyroxine at 225 mg daily. TSH obtained in 06/11/17 was 5.460, TSH today 02/05/17 history 0.770. TSH is coming down. Continue same dose and recheck TSH in 4 weeks. (10) Constipation Plan: Abdominal KUB obtained during rapid response shows moderate constipation , reviewed by me. I will order lactulose and MiraLAX as well as Colace. Suppository when necessary. 02/06 Patient is still constipated - Continue Senna and Colace , will give Miralax again and give an injection of Relistor as well as a Fleet enema. 02/07 constipation resolved after above mentioned treatment. Continue senna and Colace and Miralax as needed. (11) Major depressive disorder, recurrent episode, in partial remission Plan: Consultation psychiatry, continue trazodone at bedtime. 02/07 Encephalopathy resolved - Will resume Klonopin. Continue Effexor. 02/08 Appreciate psychiatry recommendations. Patient clear for DC. Discharge Planning Dc planning under way - Patient has been evaluated by the state and now awaiting results. CM to assist. Problem Qualifiers (1) Diabetes: Qualified Code: E11.65 - Type 2 diabetes mellitus with hyperglycemia, with long -term current use of insulin Favian Keyes MD Feb 09, 2017 10:16
--- NOTE | 2017-02-09 11:09 | RADRPT ---
EXAM DATE/TIME: 02/09/2017 10:22 [facility] COMPARISON: CHEST SINGLE AP, February 03, 2017, 9:32. INDICATIONS : Pneumonia MEDICAL HISTORY : Chronic obstructive pulmonary disease. SURGICAL HISTORY : Shoulder ENCOUNTER: Subsequent ACUITY: 2 weeks PAIN SCORE: 10/10 LOCATION: Bilateral chest FINDINGS: The heart size is normal. There is increased density at the bases bilaterally. The mid and upper katrin ngs are clear. There is silhouetting of the left hemidiaphragm. CONCLUSION: Bibasilar areas of consolidation or atelectasis. Some degree of effusion on the left cannot be exclu ded. Otis Lopez MD on February 09, 2017 at 10:56 Board Certified Radiologist. This report was verified electronically.
[2017-02-09] MEDS: MORPHINE SULFATE 30 MG TAB PO PRN ×2 (11:39→21:25)
[2017-02-09] MEDS ORDERED: SOD PHOSPHATE/SOD BIPHOSPHATE (ADULT) ENEMA 133ML PR ONE (16:00)
--- NOTE | 2017-02-09 20:58 | HHI.PR ---
Subjective Remarks 76 YOWM with COPD,CHF,AF, s/p Ablation Weaned to 3LNC No abd pain Appetite poor Up in chair, feels better Breathing treatment helps with sp Objective Vital Signs Vital Signs Date Time Temp Pulse Resp B/P Pulse Ox O2 Delivery O2 Flow Rate FiO2 02/09/17 18:00 74 02/09/17 17:00 84 02/09/17 16:07 74 02/09/17 15:00 98.5 76 17 133/60 98 02/09/17 15:00 71 02/09/17 14:00 77 02/09/17 13:00 77 02/09/17 12:00 76 02/09/17 11:00 77 02/09/17 11:00 98.0 78 19 135/77 100 02/09/17 10:00 77 02/09/17 09:00 76 02/09/17 08:00 74 02/09/17 07:30 98.0 79 18 121/59 95 02/09/17 07:30 98 Nasal Cannula 3.00 02/09/17 07:00 79 02/09/17 06:00 76 02/09/17 05:57 96 Nasal Cannula 3.00 02/09/17 05:00 76 02/09/17 04:17 75 02/09/17 04:17 98.0 74 20 141/66 95 02/09/17 04:00 96 Nasal Cannula 3.00 02/09/17 03:07 74 02/09/17 02:10 71 02/09/17 01:00 71 02/09/17 00:00 70 02/09/17 00:00 98.5 68 20 134/64 95 02/09/17 00:00 95 Nasal Cannula 3.00 02/08/17 23:00 66 02/08/17 22:00 66 02/08/17 21:00 66 I/O 02/08/17 02/08/17 02/08/17 02/09/17 02/09/17 02/09/17 07:00 15:00 23:00 07:00 15:00 23:00 Intake Total 790 ml 1766 ml 1570 ml 700 ml Output Total 550 ml 250 ml 450 ml 400 ml Balance 240 ml 1516 ml 1120 ml 300 ml Intake Oral 240 ml 1080 ml 420 ml 600 ml IV Total 550 ml 686 ml 1150 ml 100 ml Output Urine Total 550 ml 250 ml 450 ml 400 ml Emesis 0 ml 0 ml Bladder Scan Volume Amount 28 ml 123 ml # Bowel Movements 0 0 Result Diagram: 02/09/17 0632 02/09/17 0632 Objective Remarks GENERAL: MBMN WM, weak, no distress SKIN: Warm and dry. HEAD: Normocephalic. EYES: No scleral icterus. No injection or drainage. NECK: Supple, trachea midline. No JVD or lymphadenopathy. CARDIOVASCULAR: Regular rate and rhythm without murmurs, gallops, or rubs. RESPIRATORY: Breath sounds equal bilaterally. No accessory muscle use. Decreased BS at Bases GASTROINTESTINAL: Abdomen soft, non-tender, nondistended. MUSCULOSKELETAL: No cyanosis, or edema. BACK: Nontender without obvious deformity. No CVA tenderness. A/P Assessment and Plan COPD Restrictive lung disease AF, s/p ablation Oleural effusion Atelactesis PLAN: Supplement [address] effusion If effusion increases, will need TC Check PFT Xarelto 20 mg daily Amiodarone 200mg daily DC plans for rehab [facility] pt and his . Will try Bimal Ramos MD Feb 09, 2017 20:57
[2017-02-09] MEDS: traZODone HCL 100 MG TAB PO SCH (21:24)
[2017-02-09] MEDS: ATORVASTATIN 40 MG TAB PO SCH (21:25)
[2017-02-10] VITALS (28 sets, daily range): BP systolic 110–142; BP diastolic 58–72; PULSE 56–85; RESP 14–22; TEMP 98–98.6; O2SAT 85–98
[2017-02-10] MEDS: LEVOTHYROXINE SODIUM 25 MCG TAB PO SCH (06:37)
[2017-02-10] MEDS: LEVOTHYROXINE SODIUM 200 MCG TAB PO SCH (06:37)
[2017-02-10] MEDS: INSULIN ASPART SUPPLEMENTAL SCALE SQ SCH ×4 (06:39→21:00)
[2017-02-10] MEDS: TAMSULOSIN HCL 0.4 MG CAP PO SCH ×2 (08:54→20:53)
[2017-02-10] MEDS: DILTIAZEM-CD 240 MG CAP ER PO SCH ×2 (08:54→20:36)
[2017-02-10] MEDS: AMIODARONE 200 MG TAB PO SCH (08:54)
[2017-02-10] MEDS: MULTIVITAMINS/MINERALS THERAPEUTIC TAB PO SCH (08:54)
[2017-02-10] MEDS: LACTULOSE SYRUP 20 GM/30 ML CUP PO SCH (08:54)
[2017-02-10] MEDS: SODIUM CHLORIDE 0.9% FLUSH 5 ML FLUSH FLUSH SCH ×2 (08:54→21:00)
[2017-02-10] MEDS: PANTOPRAZOLE SOD 40 MG DELAYED RELEASE TAB PO SCH (08:54)
[2017-02-10] MEDS: DOCUSATE SODIUM 100 MG CAP PO SCH ×2 (08:55→20:36)
[2017-02-10] MEDS: MORPHINE SULFATE 30 MG TAB PO PRN (08:55)
[2017-02-10] MEDS: TIOTROPIUM BROMIDE 18 MCG INH INH SCH (08:56)
[2017-02-10] MEDS: VENLAFAXINE HCL XR 75 MG CAP PO SCH (08:56)
[2017-02-10] MEDS: POLYETHYLENE GLYCOL 17 GM PKG PO SCH (08:56)
[2017-02-10] MEDS: RIVAROXABAN 20 MG TAB PO SCH (08:56)
[2017-02-10] MEDS: INSULIN DETEMIR 100 UNITS/ML VIAL SQ SCH ×2 (08:57→19:24)
[2017-02-10] MEDS: BACITRACIN TOP OINT 15 GM TUBE TOP SCH (08:58)
[2017-02-10] MEDS: NYSTATIN 100,000 U/GM OINT 15 GM TUBE TOPICAL SCH ×2 (08:58→21:00)
[2017-02-10] MEDS: INSULIN ASPART 1,000 UNITS/10 ML VIAL SQ SCH ×3 (08:58→16:59)
[2017-02-10] MEDS: MEGESTROL ACETATE SUSP 400 MG/10 ML CUP PO SCH (08:59)
[2017-02-10] MEDS: MORPHINE SULFATE 15 MG TAB PO PRN (11:04)
--- NOTE | 2017-02-10 14:43 | HHI.PR ---
Subjective Remarks Deferred treat, patient seen earlier around 11:30 AM. at bedside Patient denies chest pain or shortness of breath Denies abdominal pain, nausea vomiting. Patient denies any bowel movement yesterday Patient states he is eating well and this has been corroborated by RN. Objective Vitals Vital Signs Date Time Temp Pulse Resp B/P Pulse Ox O2 Delivery O2 Flow Rate FiO2 02/10/17 14:04 76 02/10/17 13:48 98 Nasal Cannula 2.00 02/10/17 13:00 74 02/10/17 12:00 79 02/10/17 11:11 98.0 75 20 110/58 96 02/10/17 11:00 74 02/10/17 10:00 75 02/10/17 09:00 80 02/10/17 08:00 93 Nasal Cannula 2.00 Humidified 02/10/17 08:00 80 02/10/17 07:30 98.6 82 20 132/65 94 02/10/17 07:00 80 02/10/17 06:00 82 02/10/17 05:00 80 02/10/17 04:00 81 02/10/17 03:00 98.6 85 22 142/72 85 02/10/17 03:00 80 02/10/17 02:00 56 02/10/17 01:00 76 02/10/17 00:00 74 02/09/17 23:00 98.4 78 20 141/70 91 02/09/17 23:00 74 02/09/17 22:00 72 02/09/17 21:36 94 Nasal Cannula 2.00 02/09/17 21:00 72 02/09/17 20:00 74 02/09/17 19:00 74 02/09/17 19:00 100 Nasal Cannula 2.00 02/09/17 19:00 98.8 72 20 119/64 100 02/09/17 18:00 74 02/09/17 17:00 84 02/09/17 16:07 74 02/09/17 15:00 98.5 76 17 133/60 98 02/09/17 15:00 71 I/O 02/09/17 02/09/17 02/09/17 02/10/17 02/10/17 02/10/17 07:00 15:00 23:00 07:00 15:00 23:00 Intake Total 1570 ml 700 ml 360 ml Output Total 450 ml 400 ml 300 ml Balance 1120 ml 300 ml 60 ml Intake Oral 420 ml 600 ml 360 ml IV Total 1150 ml 100 ml Output Urine Total 450 ml 400 ml 300 ml Emesis 0 ml Bladder Scan Volume Amount 123 ml # Voids 3 # Bowel Movements 0 0 Result Diagram: 02/09/17 0632 02/09/17 0632 Imaging Last Impressions Chest X-Ray 02/09/17 0000 Signed Impressions: Service Date/Time: Thursday, February 09, 2017 10:22 - CONCLUSION: Bibasilar areas of consolidation or atelectasis. Some degree of effusion on the left cannot be excluded. Otis Lopez MD Objective Remarks GENERAL: This is a well-nourished, well-developed patient, ill appearing. SKIN: No rashes, ecchymoses or lesions. Cool and dry. HEAD: Atraumatic. Normocephalic. No temporal or scalp tenderness. EYES: Pupils equal round and reactive. Extraocular motions intact. No scleral icterus. No injection or drainage. ENT: Nose without bleeding, purulent drainage or septal hematoma. Throat without erythema, tonsillar hypertrophy or exudate. Uvula midline. Airway patent. NECK: Trachea midline. No JVD or lymphadenopathy. Supple, nontender, no meningeal signs. CARDIOVASCULAR: Regular rate and rhythm without murmurs, gallops, or rubs. RESPIRATORY: There is some ronchi bilaterally, no wheezing or crackles auscultated. GASTROINTESTINAL: Abdomen soft, non-tender, non distended. No hepato- splenomegaly, or palpable masses. No guarding. MUSCULOSKELETAL: Extremities without clubbing, cyanosis, or edema. No joint tenderness, effusion, or edema noted. No calf tenderness. Negative Homans sign bilaterally. NEUROLOGICAL: Awake and alert. Cranial nerves II through XII intact. Motor and sensory grossly within normal limits. Five out of 5 muscle strength in all muscle groups. Normal speech. Procedures none Medications and IVs Current Medications Medications (Trade) Dose Ordered Sig/Melissa Route Start Time Stop Time Status Last Admin (NS Flush) 2 ml UNSCH PRN FLUSH 02/05/17 12:30 (NS Flush) 2 ml BID FLUSH 02/05/17 21:00 02/10/17 08:54 (Tylenol) 650 mg Q4H PRN PO 02/05/17 12:30 (Zofran Inj) 4 mg Q6H PRN IVP 02/05/17 12:30 02/06/17 10:35 (Lipitor) 40 mg HS PO 02/05/17 21:00 02/09/17 21:25 (Cardizem Cd) 240 mg BID PO 02/05/17 21:00 02/10/17 08:54 (Colace) 100 mg BID PO 02/05/17 21:00 02/10/17 08:55 (Synthroid) 25 mcg DAILY@0600 PO 02/06/17 06:00 02/10/17 06:37 (Synthroid) 200 mcg DAILY@0600 PO 02/06/17 06:00 02/10/17 06:37 (Theragran M Tab) 1 tab DAILY PO 02/06/17 09:00 02/10/17 08:54 (Mycostatin Oint) 1 applic Q12HR TOPICAL 02/05/17 21:00 02/10/17 08:58 (Protonix) 40 mg DAILY PO 02/06/17 09:00 02/10/17 08:54 (Xarelto) 20 mg DAILY PO 02/06/17 09:00 02/10/17 08:56 (Flomax) 0.4 mg HS PO 02/05/17 21:00 02/09/17 21:25 (Spiriva Inh) 18 mcg DAILY INH 02/06/17 09:00 02/10/17 08:56 (Desyrel) 200 mg HS PO 02/05/17 21:00 02/09/17 21:24 (Proair Hfa Inh) 2 puff Q4HR PRN INH 02/05/17 12:30 02/09/17 05:53 (Cordarone) 200 mg DAILY PO 02/06/17 09:00 02/10/17 08:54 (D50w (Vial) Inj) 25 ml UNSCH PRN IV PUSH 02/05/17 16:00 02/06/17 15:44 (Glucagon Inj) 1 mg UNSCH PRN OTHER 02/05/17 16:00 (Levemir Inj) 15 units Q12HR SQ 02/05/17 21:00 02/10/17 08:57 (NovoLOG INJ) 7 units TIDPC SQ 02/06/17 09:30 02/10/17 12:10 (Lactulose Liq) 30 ml DAILY PO 02/05/17 19:00 02/10/17 08:54 (Msir) 15 mg Q4H PRN PO 02/05/17 19:30 02/10/17 11:04 (Msir) 30 mg Q8H PRN PO 02/05/17 19:30 02/10/17 08:55 (Miralax) 17 gm DAILY PO 02/06/17 11:15 02/10/17 08:56 (Flomax) 0.4 mg DAILY PO 02/07/17 11:00 02/10/17 08:54 (Effexor Xr) 225 mg DAILY PO 02/08/17 09:00 02/10/17 08:56 (Duragesic 50 Mcg Patch.72 Hr) 1 patch Q72H TD 02/07/17 20:00 02/07/17 19:55 Miscellaneous Information 1 Q72H TD 02/10/17 20:00 (Baciguent Oint) 1 applic Q12HR TOP 02/08/17 12:00 02/10/17 08:58 (Megace Liq) 400 mg DAILY PO 02/08/17 12:00 02/08/17 12:59 Urinary Catheter: No Vascular Central Line Catheter: No A/P Problem List: (1) Encephalopathy acute ICD Code: G93.40 Status: Resolved (2) Syncope ICD Code: R55 Status: Resolved (3) Nausea and vomiting ICD Code: R11.2 Status: Resolved (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 (5) Atrial fibrillation ICD Code: I48.91 Status: Chronic (6) Hypertension ICD Code: I10 Status: Chronic (7) Diabetes ICD Code: E11.9 Status: Chronic (8) COPD (chronic obstructive pulmonary disease) ICD Code: J44.9 Status: Chronic (9) Hypothyroidism ICD Code: E03.9 Status: Chronic (10) Constipation ICD Code: K59.00 Status: Resolved (11) Major depressive disorder, recurrent episode, in partial remission ICD Code: F33.41 Status: Acute (12) Hypoglycemia associated with type 2 diabetes mellitus ICD Code: E11.649 Status: Resolved (13) Decreased oral intake ICD Code: R63.8 Status: Resolved (14) Urinary retention ICD Code: R33.9 Status: Acute (15) Poor appetite ICD Code: R63.0 Status: Acute (16) Severe protein-calorie malnutrition ICD Code: E43 Status: Acute (17) Pleural effusion ICD Code: J90 Status: Acute (18) Leukocytosis ICD Code: D72.829 Status: Resolved (19) Oliguria ICD Code: R34 Status: Acute (20) Chronic diastolic (congestive) heart failure ICD Code: I50.32 Status: Chronic Assessment and Plan (1) Encephalopathy acute Plan: The patient to the medical floor. Encephalopathy likely secondary to CO2 narcosis. BiPAP ordered however patient refuses to use it. CO2 narcosis could possibly have been caused by over administration of oxygen the previous day as reviewed in medical records. 02/06 Encephalopathy resolved. Continue to monitor neuro status. (2) Syncope Plan: Syncope could've been possibly secondary to orthostatic hypotension vs vasovagal syncope after vomiting. Both are benign and do not require further workup. (3) Nausea and vomiting Plan: Patient has history of gastroparesis and constipation. Last bowel movement on 02/03/17. 02/06 patient still nauseous - continue Zofran as needed. (4) Squamous cell carcinoma of epiglottis Plan: As shown on pathology. Patient has been evaluated by ENT. Apparently there is no metastases so there is a good chance of cure. Patient was offered surgery and radiotherapy. Patient elected radiotherapy. Radiation oncology following. (5) Atrial fibrillation Plan: Rate controlled. Monitor on telemetry. Diltiazem has been discontinued. Patient on amiodarone 200 mg by mouth twice a day, however is way past the loading dose. I will order an amiodarone level since amiodarone toxicity can also give nausea and vomiting. SP ablation. 02/08 amiodarone level still pending (6) Hypertension Plan: Seems to be stable. Continue Cardizem. (7) Diabetes Plan: Patient with diabetes with hyperglycemia and uncontrolled blood sugars. Patient was on insulin Levemir 15 units twice a day and prandial insulin 7 units with meals and SSI with insulin NovoLog. Continue on same regime and according to patient's blood sugars this will be titrated. 02/06 Patient with persistent hypoglycemia in the 40s twice today at 10:43 AM and again in the afternoon. I will hold insulin Levemir and prandial insulin since patient is not eating. Also start the patient on D5NS. Continue to monitor Accu-Cheks. 02/07 Patient's blood sugars now uncontrolled in the 300's likely due to patient eating more - will resume insulin Levemir and prandial novolog insulin and discontinue D5NS. 02/08 Blood sugar level improved. No further hypoglycemia. (8) COPD (chronic obstructive pulmonary disease) Plan: Seems to be stable, continue Spiriva. Keep oxygen saturation between 88 and 92%. (9) Hypothyroidism Plan: Continue levothyroxine at 225 mg daily. TSH obtained in 06/11/17 was 5.460, TSH today 02/05/17 history 0.770. TSH is coming down. Continue same dose and recheck TSH in 4 weeks. (10) Constipation Plan: Abdominal KUB obtained during rapid response shows moderate constipation , reviewed by me. I will order lactulose and MiraLAX as well as Colace. Suppository when necessary. 02/06 Patient is still constipated - Continue Senna and Colace , will give Miralax again and give an injection of Relistor as well as a Fleet enema. 02/07 constipation resolved after above mentioned treatment. Continue senna and Colace and Miralax as needed. 02/10 No BM yesterday, continue bowel regime as above, will add Fleet enemas as needed. (11) Major depressive disorder, recurrent episode, in partial remission Plan: Consultation psychiatry, continue trazodone at bedtime. 02/07 Encephalopathy resolved - Will resume Klonopin. Continue Effexor. 02/08 Appreciate psychiatry recommendations. Patient clear for DC. (15) Poor appetite Plan: Patient has been started on Megace, however the patient is refusing because he does not like the taste. Patient states appetite is improving, at bedside states the same. Aspirin the patient has eaten better today. Dietitian has been consulted while the patient was in psychiatric unit. 1800 ADA diet and Glucerna shakes 3 times a day recommended. Will DC Megace and try Marinol. (16) Severe protein-calorie malnutrition Plan: Patient with poor appetite and low albumin. Dietitian consulted. Continue 1800 ADA diet with Glucerna shakes 3 times a day. (17) Pleural effusion Plan: CT of the chest reviewed by me obtained 02/04/17 showed bibasilar consolidation and minimal patchy ground glass densities in the upper lobes. Moderate right and small left pleural effusion. Pulmonary following - appreciate input. Chest x-ray obtained on 02/09/17 shows bibasilar areas of consolidation or atelectasis. Some degree of effusion on the left cannot be excluded. The patient is a afebrile with normal white blood cell count. Will order incentive spirometry. (18) Leukocytosis Plan: Patient had been on steroids which have been discontinued. No signs of infections - patient afebrile. WBC trending down and now 10 K. Continue to monitor cbc with diff. (19) Oliguria Plan: Initially urine output had decreased on 02/08. Improved after IV fluid administration and now with acceptable output. IV fluids were discontinued and oral intake is encouraged. Urine output has improved (20) Chronic diastolic (congestive) heart failure Plan: EF 55-60% with no noted valvular dysfunction on echocardiograms 09/14 and 12/16. CHF seems to be stable. Will resume oral Lasix. Discharge Planning Patient is cleared to be discharged once placement arranged. Problem Qualifiers (1) Diabetes: Qualified Code: E11.65 - Type 2 diabetes mellitus with hyperglycemia, with long -term current use of insulin Favian Keyes MD Feb 10, 2017 14:43
[2017-02-10] MEDS ORDERED: INSU1INJ5 SQ (14:58)
[2017-02-10] MEDS ORDERED: NOVOINJ3 SQ (14:58)
[2017-02-10] MEDS ORDERED: BACI500O2 TOP (14:58)
[2017-02-10] MEDS ORDERED: VENL75XR PO (14:58)
[2017-02-10] MEDS ORDERED: FENT50T TD (14:58)
[2017-02-10] MEDS ORDERED: LACT10SO PO (14:58)
[2017-02-10] MEDS ORDERED: AMIO200T PO (14:58)
--- NOTE | 2017-02-10 15:00 | HHI.DCPOC ---
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 Avoid second hand smoke Call the 24-hour hour crisis hotline for domestic abuse at Favian Keyes MD Feb 10, 2017 15:00
[2017-02-10] MEDS ORDERED: MSIR15 PO (15:14)
[2017-02-10] MEDS ORDERED: MARI5CAP PO (15:17)
[2017-02-10] MEDS: DRONABINOL 5 MG CAP PO SCH (18:31)
[2017-02-10] MEDS ORDERED: SOD PHOSPHATE/SOD BIPHOSPHATE (ADULT) ENEMA 133ML PR PRN (19:00)
--- NOTE | 2017-02-10 19:34 | HHI.PR ---
Subjective Remarks 76 YOWM with COPD,CHF,AF, s/p Ablation Weaned to 3LNC No abd pain Appetite poor Breathing treatment helps with sp Worked with PT Objective Vital Signs Vital Signs Date Time Temp Pulse Resp B/P Pulse Ox O2 Delivery O2 Flow Rate FiO2 02/10/17 18:00 76 02/10/17 17:00 74 02/10/17 16:00 74 02/10/17 15:00 98.5 77 21 120/65 97 02/10/17 15:00 76 02/10/17 14:04 76 02/10/17 13:48 98 Nasal Cannula 2.00 02/10/17 13:00 74 02/10/17 12:00 79 02/10/17 11:11 98.0 75 20 110/58 96 02/10/17 11:00 74 02/10/17 10:00 75 02/10/17 09:00 80 02/10/17 08:00 93 Nasal Cannula 2.00 Humidified 02/10/17 08:00 80 02/10/17 07:30 98.6 82 20 132/65 94 02/10/17 07:00 80 02/10/17 06:00 82 02/10/17 05:00 80 02/10/17 04:00 81 02/10/17 03:00 98.6 85 22 142/72 85 02/10/17 03:00 80 02/10/17 02:00 56 02/10/17 01:00 76 02/10/17 00:00 74 02/09/17 23:00 98.4 78 20 141/70 91 02/09/17 23:00 74 02/09/17 22:00 72 02/09/17 21:36 94 Nasal Cannula 2.00 02/09/17 21:00 72 02/09/17 20:00 74 I/O 02/09/17 02/09/17 02/09/17 02/10/17 02/10/17 02/10/17 07:00 15:00 23:00 07:00 15:00 23:00 Intake Total 1570 ml 700 ml 360 ml 840 ml Output Total 450 ml 400 ml 300 ml 350 ml Balance 1120 ml 300 ml 60 ml 490 ml Intake Oral 420 ml 600 ml 360 ml 840 ml IV Total 1150 ml 100 ml Output Urine Total 450 ml 400 ml 300 ml 350 ml Emesis 0 ml Bladder Scan Volume Amount 123 ml # Voids 3 # Bowel Movements 0 0 Result Diagram: 02/09/17 0632 02/09/17 0632 Objective Remarks GENERAL: MBMN WM, weak, no distress SKIN: Warm and dry. HEAD: Normocephalic. EYES: No scleral icterus. No injection or drainage. NECK: Supple, trachea midline. No JVD or lymphadenopathy. CARDIOVASCULAR: Regular rate and rhythm without murmurs, gallops, or rubs. RESPIRATORY: Breath sounds equal bilaterally. No accessory muscle use. Decreased BS at Bases GASTROINTESTINAL: Abdomen soft, non-tender, nondistended. MUSCULOSKELETAL: No cyanosis, or edema. BACK: Nontender without obvious deformity. No CVA tenderness. A/P Assessment and Plan COPD Restrictive lung disease AF, s/p ablation Oleural effusion Atelactesis PLAN: Supplement [address] effusion If effusion increases, will need TC Xarelto 20 mg daily Amiodarone 200mg daily DW pt and his . Will try Bimal Ramos MD Feb 10, 2017 19:34
[2017-02-10] MEDS ORDERED: REMOVE OLD PATCH TD SCH (20:00)
[2017-02-10] MEDS: traZODone HCL 100 MG TAB PO SCH (20:36)
[2017-02-10] MEDS: ATORVASTATIN 40 MG TAB PO SCH (20:36)
[2017-02-10] MEDS: fentaNYL 50 MCG/HR PATCH TD SCH (20:40)
[2017-02-11] VITALS (18 sets, daily range): BP systolic 118–132; BP diastolic 62–65; PULSE 76–89; RESP 16–18; TEMP 98.1–98.6; O2SAT 94–98
[2017-02-11] MEDS: MORPHINE SULFATE 30 MG TAB PO PRN ×2 (01:51→10:52)
[2017-02-11] MEDS: BACITRACIN TOP OINT 15 GM TUBE TOP SCH ×2 (04:14→09:04)
[2017-02-11] MEDS: LEVOTHYROXINE SODIUM 25 MCG TAB PO SCH (05:45)
[2017-02-11] MEDS: LEVOTHYROXINE SODIUM 200 MCG TAB PO SCH (05:46)
[2017-02-11] MEDS: INSULIN ASPART SUPPLEMENTAL SCALE SQ SCH ×3 (06:00→16:35)
[2017-02-11] MEDS: INSULIN DETEMIR 100 UNITS/ML VIAL SQ SCH (08:59)
[2017-02-11] MEDS: LACTULOSE SYRUP 20 GM/30 ML CUP PO SCH (09:00)
[2017-02-11] MEDS: AMIODARONE 200 MG TAB PO SCH (09:00)
[2017-02-11] MEDS: DILTIAZEM-CD 240 MG CAP ER PO SCH (09:00)
[2017-02-11] MEDS: DOCUSATE SODIUM 100 MG CAP PO SCH (09:00)
[2017-02-11] MEDS: POLYETHYLENE GLYCOL 17 GM PKG PO SCH (09:00)
[2017-02-11] MEDS: PANTOPRAZOLE SOD 40 MG DELAYED RELEASE TAB PO SCH (09:00)
[2017-02-11] MEDS: SODIUM CHLORIDE 0.9% FLUSH 5 ML FLUSH FLUSH SCH (09:00)
[2017-02-11] MEDS: MULTIVITAMINS/MINERALS THERAPEUTIC TAB PO SCH (09:01)
[2017-02-11] MEDS: ALBUTEROL SULFATE 90 MCG/ACT HFA 8 GM INHALER INH PRN (09:04)
[2017-02-11] MEDS: NYSTATIN 100,000 U/GM OINT 15 GM TUBE TOPICAL SCH (09:05)
[2017-02-11] MEDS: RIVAROXABAN 20 MG TAB PO SCH (09:05)
[2017-02-11] MEDS: TIOTROPIUM BROMIDE 18 MCG INH INH SCH (09:05)
[2017-02-11] MEDS: VENLAFAXINE HCL XR 75 MG CAP PO SCH (09:11)
[2017-02-11] MEDS: TAMSULOSIN HCL 0.4 MG CAP PO SCH (09:11)
[2017-02-11] MEDS: INSULIN ASPART 1,000 UNITS/10 ML VIAL SQ SCH ×2 (09:12→12:05)
[2017-02-11] MEDS: DRONABINOL 5 MG CAP PO SCH ×2 (10:52→16:00)
--- NOTE | 2017-02-11 12:29 | HHI.PR ---
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 Pain control. Denies fevers or chills. Stable vital signs. Denies abdominal pain, nausea or vomiting. requesting vaseline to be able to retract foreskin of penis Objective Vitals Vital Signs Date Time Temp Pulse Resp B/P Pulse Ox O2 Delivery O2 Flow Rate FiO2 02/11/17 11:27 98.6 78 18 125/62 95 02/11/17 11:00 81 02/11/17 10:00 76 02/11/17 09:01 98 Nasal Cannula 3.00 02/11/17 09:00 82 02/11/17 08:08 95 Nasal Cannula 2.00 02/11/17 08:00 76 02/11/17 08:00 98.4 81 16 132/64 94 02/11/17 07:00 89 02/11/17 05:00 81 02/11/17 04:00 80 02/11/17 03:00 98.1 81 16 129/65 94 02/11/17 03:00 78 02/11/17 03:00 16 02/11/17 02:00 78 02/11/17 01:00 78 02/11/17 00:00 78 02/10/17 23:00 80 02/10/17 23:00 98.4 80 14 126/68 95 02/10/17 22:00 78 02/10/17 22:00 14 02/10/17 21:00 76 02/10/17 20:30 92 Nasal Cannula 3.00 02/10/17 20:00 76 02/10/17 19:00 Nasal Cannula 2.00 02/10/17 19:00 77 02/10/17 19:00 98.5 77 16 117/64 95 02/10/17 18:00 76 02/10/17 17:00 74 02/10/17 16:00 74 02/10/17 15:00 98.5 77 21 120/65 97 02/10/17 15:00 76 02/10/17 14:04 76 02/10/17 13:48 98 Nasal Cannula 2.00 02/10/17 13:00 74 I/O 02/10/17 02/10/17 02/10/17 02/11/17 02/11/1715/17 07:00 15:00 23:00 07:00 15:00 23:00 Intake Total 360 ml 840 ml 480 ml Output Total 300 ml 350 ml 540 ml Balance 60 ml 490 ml -60 ml Intake Oral 360 ml 840 ml 480 ml Output Urine Total 300 ml 350 ml 540 ml # Voids 3 # Bowel Movements 0 Result Diagram: 02/09/17 0632 02/09/17 0632 Imaging Last Impressions Chest X-Ray 02/09/17 0000 Signed Impressions: Service Date/Time: Thursday, February 09, 2017 10:22 - CONCLUSION: Bibasilar areas of consolidation or atelectasis. Some degree of effusion on the left cannot be excluded. Otis Lopez MD Objective Remarks GENERAL: This is a well-nourished, well-developed patient, ill appearing. SKIN: No rashes, ecchymoses or lesions. Cool and dry. HEAD: Atraumatic. Normocephalic. No temporal or scalp tenderness. EYES: Pupils equal round and reactive. Extraocular motions intact. No scleral icterus. No injection or drainage. ENT: Nose without bleeding, purulent drainage or septal hematoma. Throat without erythema, tonsillar hypertrophy or exudate. Uvula midline. Airway patent. NECK: Trachea midline. No JVD or lymphadenopathy. Supple, nontender, no meningeal signs. CARDIOVASCULAR: Regular rate and rhythm without murmurs, gallops, or rubs. RESPIRATORY: There is some ronchi bilaterally, no wheezing or crackles auscultated. GASTROINTESTINAL: Abdomen soft, non-tender, non distended. No hepato- splenomegaly, or palpable masses. No guarding. MUSCULOSKELETAL: Extremities without clubbing, cyanosis, or edema. No joint tenderness, effusion, or edema noted. No calf tenderness. Negative Homans sign bilaterally. NEUROLOGICAL: Awake and alert. Cranial nerves II through XII intact. Motor and sensory grossly within normal limits. Five out of 5 muscle strength in all muscle groups. Normal speech. Procedures none Medications and IVs Current Medications Medications (Trade) Dose Ordered Sig/Melissa Route Start Time Stop Time Status Last Admin (NS Flush) 2 ml UNSCH PRN FLUSH 02/05/17 12:30 (NS Flush) 2 ml BID FLUSH 02/05/17 21:00 02/11/17 09:00 (Tylenol) 650 mg Q4H PRN PO 02/05/17 12:30 (Zofran Inj) 4 mg Q6H PRN IVP 02/05/17 12:30 02/06/17 10:35 (Lipitor) 40 mg HS PO 02/05/17 21:00 02/10/17 20:36 (Cardizem Cd) 240 mg BID PO 02/05/17 21:00 02/11/17 09:00 (Colace) 100 mg BID PO 02/05/17 21:00 02/11/17 09:00 (Synthroid) 25 mcg DAILY@0600 PO 02/06/17 06:00 02/11/17 05:45 (Synthroid) 200 mcg DAILY@0600 PO 02/06/17 06:00 02/11/17 05:46 (Theragran M Tab) 1 tab DAILY PO 02/06/17 09:00 02/11/17 09:01 (Mycostatin Oint) 1 applic Q12HR TOPICAL 02/05/17 21:00 02/11/17 09:05 (Protonix) 40 mg DAILY PO 02/06/17 09:00 02/11/17 09:00 (Xarelto) 20 mg DAILY PO 02/06/17 09:00 02/11/17 09:05 (Flomax) 0.4 mg HS PO 02/05/17 21:00 02/10/17 20:53 (Spiriva Inh) 18 mcg DAILY INH 02/06/17 09:00 02/11/17 09:05 (Desyrel) 200 mg HS PO 02/05/17 21:00 02/10/17 20:36 (Proair Hfa Inh) 2 puff Q4HR PRN INH 02/05/17 12:30 02/11/17 09:04 (Cordarone) 200 mg DAILY PO 02/06/17 09:00 02/10/17 08:54 (D50w (Vial) Inj) 25 ml UNSCH PRN IV PUSH 02/05/17 16:00 02/06/17 15:44 (Glucagon Inj) 1 mg UNSCH PRN OTHER 02/05/17 16:00 (Levemir Inj) 15 units Q12HR SQ 02/05/17 21:00 02/11/17 08:59 (NovoLOG INJ) 7 units TIDPC SQ 02/06/17 09:30 02/11/17 12:05 (Lactulose Liq) 30 ml DAILY PO 02/05/17 19:00 02/11/17 09:00 (Msir) 15 mg Q4H PRN PO 02/05/17 19:30 02/10/17 11:04 (Msir) 30 mg Q8H PRN PO 02/05/17 19:30 02/11/17 10:52 (Miralax) 17 gm DAILY PO 02/06/17 11:15 02/11/17 09:00 (Flomax) 0.4 mg DAILY PO 02/07/17 11:00 02/11/17 09:11 (Effexor Xr) 225 mg DAILY PO 02/08/17 09:00 02/11/17 09:11 (Duragesic 50 Mcg Patch.72 Hr) 1 patch Q72H TD 02/07/17 20:00 02/10/17 20:40 Miscellaneous Information 1 Q72H TD 02/10/17 20:00 02/10/17 20:00 (Baciguent Oint) 1 applic Q12HR TOP 02/08/17 12:00 02/11/17 09:04 (Marinol) 5 mg BID@11,16 PO 02/10/17 16:00 02/11/17 10:52 (Fleets Enema (Adult)) [address] 02/10/17 19:00 Urinary Catheter: No Vascular Central Line Catheter: No A/P Problem List: (1) Encephalopathy acute ICD Code: G93.40 Status: Resolved (2) Syncope ICD Code: R55 Status: Resolved (3) Nausea and vomiting ICD Code: R11.2 Status: Resolved (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 (5) Atrial fibrillation ICD Code: I48.91 Status: Chronic (6) Hypertension ICD Code: I10 Status: Chronic (7) Diabetes ICD Code: E11.9 Status: Chronic (8) COPD (chronic obstructive pulmonary disease) ICD Code: J44.9 Status: Chronic (9) Hypothyroidism ICD Code: E03.9 Status: Chronic (10) Constipation ICD Code: K59.00 Status: Resolved (11) Major depressive disorder, recurrent episode, in partial remission ICD Code: F33.41 Status: Acute (12) Hypoglycemia associated with type 2 diabetes mellitus ICD Code: E11.649 Status: Resolved (13) Decreased oral intake ICD Code: R63.8 Status: Resolved (14) Poor appetite ICD Code: R63.0 Status: Acute (15) Severe protein-calorie malnutrition ICD Code: E43 Status: Acute (16) Pleural effusion ICD Code: J90 Status: Acute (17) Leukocytosis ICD Code: D72.829 Status: Resolved (18) Oliguria ICD Code: R34 Status: Acute (19) Chronic diastolic (congestive) heart failure ICD Code: I50.32 Status: Chronic Assessment and Plan (1) Encephalopathy acute Plan: The patient to the medical floor. Encephalopathy likely secondary to CO2 narcosis. BiPAP ordered however patient refuses to use it. CO2 narcosis could possibly have been caused by over administration of oxygen the previous day as reviewed in medical records. 02/06 Encephalopathy resolved. Continue to monitor neuro status. (2) Syncope Plan: Syncope could've been possibly secondary to orthostatic hypotension vs vasovagal syncope after vomiting. Both are benign and do not require further workup. (3) Nausea and vomiting Plan: Patient has history of gastroparesis and constipation. Last bowel movement on 02/03/17. 02/06 patient still nauseous - continue Zofran as needed. (4) Squamous cell carcinoma of epiglottis Plan: As shown on pathology. Patient has been evaluated by ENT. Apparently there is no metastases so there is a good chance of cure. Patient was offered surgery and radiotherapy. Patient elected radiotherapy. Radiation oncology following. (5) Atrial fibrillation Plan: Rate controlled. Monitor on telemetry. Diltiazem has been discontinued. Patient on amiodarone 200 mg by mouth twice a day, however is way past the loading dose. I will order an amiodarone level since amiodarone toxicity can also give nausea and vomiting. SP ablation. 02/08 amiodarone level still pending (6) Hypertension Plan: Seems to be stable. Continue Cardizem. (7) Diabetes Plan: Patient with diabetes with hyperglycemia and uncontrolled blood sugars. Patient was on insulin Levemir 15 units twice a day and prandial insulin 7 units with meals and SSI with insulin NovoLog. Continue on same regime and according to patient's blood sugars this will be titrated. 02/06 Patient with persistent hypoglycemia in the 40s twice today at 10:43 AM and again in the afternoon. I will hold insulin Levemir and prandial insulin since patient is not eating. Also start the patient on D5NS. Continue to monitor Accu-Cheks. 02/07 Patient's blood sugars now uncontrolled in the 300's likely due to patient eating more - will resume insulin Levemir and prandial novolog insulin and discontinue D5NS. 02/08 Blood sugar level improved. No further hypoglycemia. (8) COPD (chronic obstructive pulmonary disease) Plan: Seems to be stable, continue Spiriva. Keep oxygen saturation between 88 and 92%. (9) Hypothyroidism Plan: Continue levothyroxine at 225 mg daily. TSH obtained in 06/11/17 was 5.460, TSH today 02/05/17 history 0.770. TSH is coming down. Continue same dose and recheck TSH in 4 weeks. (10) Constipation Plan: Abdominal KUB obtained during rapid response shows moderate constipation , reviewed by me. I will order lactulose and MiraLAX as well as Colace. Suppository when necessary. 02/06 Patient is still constipated - Continue Senna and Colace , will give Miralax again and give an injection of Relistor as well as a Fleet enema. 02/07 constipation resolved after above mentioned treatment. Continue senna and Colace and Miralax as needed. 02/10 No BM yesterday, continue bowel regime as above, will add Fleet enemas as needed. (11) Major depressive disorder, recurrent episode, in partial remission Plan: Consultation psychiatry, continue trazodone at bedtime. 02/07 Encephalopathy resolved - Will resume Klonopin. Continue Effexor. 02/08 Appreciate psychiatry recommendations. Patient clear for DC. (15) Poor appetite Plan: Patient has been started on Megace, however the patient is refusing because he does not like the taste. Patient states appetite is improving, at bedside states the same. Aspirin the patient has eaten better today. Dietitian has been consulted while the patient was in psychiatric unit. 1800 ADA diet and Glucerna shakes 3 times a day recommended. Continue Marinol - appetite seems to have improved. (16) Severe protein-calorie malnutrition Plan: Patient with poor appetite and low albumin. Dietitian consulted. Continue 1800 ADA diet with Glucerna shakes 3 times a day. (17) Pleural effusion Plan: CT of the chest reviewed by me obtained 02/04/17 showed bibasilar consolidation and minimal patchy ground glass densities in the upper lobes. Moderate right and small left pleural effusion. Pulmonary following - appreciate input. Chest x-ray obtained on 02/09/17 shows bibasilar areas of consolidation or atelectasis. Some degree of effusion on the left cannot be excluded. The patient is a afebrile with normal white blood cell count. continue Incentive spirometry. (18) Leukocytosis Plan: Patient had been on steroids which have been discontinued. No signs of infections - patient afebrile. WBC trending down and now 10 K. Continue to monitor cbc with diff. (19) Oliguria Plan: Initially urine output had decreased on 02/08. Improved after IV fluid administration and now with acceptable output. IV fluids were discontinued and oral intake is encouraged. Urine output has improved (20) Chronic diastolic (congestive) heart failure Plan: EF 55-60% with no noted valvular dysfunction on echocardiograms 09/14 and 12/16. CHF seems to be stable. Continue lasix. Will order vaseline to be able to retract penis foreskin. Discharge Planning Patient is cleared to be discharged once placement arranged. Problem Qualifiers (1) Diabetes: Qualified Code: E11.65 - Type 2 diabetes mellitus with hyperglycemia, with long -term current use of insulin Favian Keyes MD Feb 11, 2017 12:29
[2017-02-11] MEDS ORDERED: FUROSEMIDE 20 MG TAB PO SCH (13:00)
[2017-02-11] MEDS ORDERED: CLON0.5T PO (16:20)
[2017-02-11 23:55] LABS: DESETHYLAMIODARONE 0.9 mcg/mL (1.5-2.5)
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
--- NOTE | 2017-03-09 10:18 | RSPPFT ---
DATE OF PROCEDURE: 02/06/17 COMMENTS: Spirometry shows FVC of 1.2 at 29% of predicted, FEV1 of 0.7 at 23%, FEV1/FVC ratio is decreased. Flow is decreased at FEF 25-75. There is no response after bronchodilator treatment. Flow volume loop indicates an obstructive pattern. IMPRESSION: 1. Severe obstructive lung disease. 2. No response after bronchodilator treatment. 3. Underlying restrictive disease is not ruled out from this study.
== END 2017-02-11 17:59 | DRG 204 ==
LOC: HCIN 12:04
PROVIDERS: ADMIT Hospitalist; ATTEND Hospitalist
DX: R06.89 Other abnormalities of breathing (principal); E43 Unspecified severe protein-calorie malnutrition; G93.49 Other encephalopathy; R34 Anuria and oliguria; I50.32 Chronic diastolic (congestive) heart failure; E11.65 Type 2 diabetes mellitus with hyperglycemia; Z99.81 Dependence on supplemental oxygen; K31.84 Gastroparesis; C32.1 Malignant neoplasm of supraglottis; J98.11 Atelectasis; R55 Syncope and collapse; I48.91 Unspecified atrial fibrillation; J44.9 Chronic obstructive pulmonary disease, unspecified; Z87.891 Personal history of nicotine dependence; E03.9 Hypothyroidism, unspecified; K21.9 Gastro-esophageal reflux disease without esophagitis; M19.90 Unspecified osteoarthritis, unspecified site; T20.00XD Burn of unspecified degree of head, face, and neck, unspecified site, subsequent encounter; I10 Essential (primary) hypertension; K59.00 Constipation, unspecified; F33.41 Major depressive disorder, recurrent, in partial remission; R33.9 Retention of urine, unspecified; Z53.29 Procedure and treatment not carried out because of patient's decision for other reasons; J98.4 Other disorders of lung
CPT/HCPCS: 71010; 77300; 77301; 77334; 77338; 77417; 80048; 80053; 80162; 80299; 82550; 82948; 83735; 84100; 84443; 84484; 85007; 85025; 85027; 94060; 94640; 94664; 94667; 94668; J1815; J2212; J2405; J7030; J7042

== ENCOUNTER 2017-02-19 16:35 | Inpatient (IN) | payer OTHER ==
[~2017-02-19] VITALS: Ht 180.3 cm; Wt 82.0 kg
[~2017-02-19 16:35] MED LIST changes: +AMIO200T PO; -AMIO5TAB PO; +BACI500O2 TOP; -BACI500O9 TOPICAL; -CLIN1CAP5 PO; -CLON.5 PO; +CLON0.5T PO; -DIGO0.25 PO; -FENT100D T-DERMAL; +FENT50T TD; -FURO1TAB60 PO; +INSU1INJ5 SQ; +LACT10SO PO; +MARI5CAP PO; +MSIR15 PO; -MSIR30 PO; -N7030SS SQ; +NOVOINJ3 SQ; -ONDA1TAB17 PO; -SOLU40IN IV; +VENL75XR PO; -Venlafaxine Xr PO
[2017-02-19 17:41] VITALS: BP 114/58; PULSE 85; RESP 18
--- NOTE | 2017-02-19 17:45 | PD ---
HPI Chief Complaint: failure to thrive Time Seen by Provider: 17:45 Travel History International Travel<30 days: No Contact w/Intl Traveler<30days: No Traveled to known affect area: No History of Present Illness HPI 74-year-old male with history of thyroid disease, CHF, CAD, A. fib, on Xarelto, COPD, hypertension, diabetes, recently diagnosed with throat cancer, currently in rehabilitation at [facility], is transferred to the emergency department at the instruction of his primary care provider Dr. Mcqueen for evaluation of failure to thrive and PEG placement. Patient has been unable to drink or swallow. His states that he has been followed by Dr. Casas for his throat cancer and is in process of transferring to the [place] for care. His states that he is to get a PET scan to evaluate for metastatic disease. This will determine whether or not she wants to continue with treatment and PEG placement versus palliative measures. Patient's states that he has been increasingly fatigued and tired. Patient reports right shoulder pain. States that when being transferred for transport in the senior living facility it was pulled and injured. Denies any alterations in sensation distal extremity. No other symptoms to report. does report that the patient is being treated for decubiti on his buttocks. PFSH Past Medical History Hx Anticoagulant Therapy: Yes (XARELTO) Arthritis: Yes Asthma: No Atrial Fibrillation: Yes Autoimmune Disease: No Anxiety: Yes Depression: No Heart Rhythm Problems: Yes (afib- aflutter) Cancer: Yes Cardiovascular Problems: Yes High Cholesterol: No Chemotherapy: No Chest Pain: Yes Congestive Heart Failure: Yes COPD: Yes Cerebrovascular Accident: No Diabetes: Yes Diminished Hearing: No Endocrine: Yes Gastrointestinal Disorders: Yes (GASTROPARESIS) GERD: Yes Genitourinary: No Hepatitis: No Hiatal Hernia: Yes Hypertension: Yes Immune Disorder: No Implanted Vascular Access Dvce: No Musculoskeletal: Yes Neurologic: Yes Psychiatric: No Reproductive: No Respiratory: Yes Radiation Therapy: No Sleep Apnea: Yes Thyroid Disease: Yes Ulcer: No Past Surgical History Abdominal Surgery: Yes (gallbladder removal) AICD: No Body Medical Devices: left shoulder metal plate with approx. 16 screws Cardiac Surgery: Yes (Ablation x2, cath) Cholecystectomy: Yes Ear Surgery: No Endocrine Surgery: No Eye Surgery: Yes (cataracts) Genitourinary Surgery: No Gynecologic Surgery: No Joint Replacement: Yes (Left shoulder) Neurologic Surgery: Yes (R leg) Oral Surgery: Yes (tonsilectomy) Pacemaker: No Thoracic Surgery: No Tonsillectomy: Yes Other Surgery: Yes Social History Alcohol Use: No Tobacco Use: Yes Substance Use: No Allergies-Medications (Allergen,Severity, Reaction): Coded Allergies: Flagyl (Verified Allergy, Severe, 01/27/17) Floxcin (Verified Allergy, Severe, 01/27/17) Latex (Verified Allergy, Severe, 01/27/17) Adhesives (Verified Allergy, Mild, 01/27/17) Reported Meds & Prescriptions Reported Meds & Active Scripts Active Marinol (Dronabinol) 5 Mg Cap 5 Mg PO BID Morphine IR (Morphine Sulfate) 15 Mg Tab 15 Mg PO Q4H PRN Effexor XR 24 HR (Venlafaxine HCl) 75 Mg Cap 225 Mg PO DAILY Lactulose Liq (Lactulose) 10 Gm/15 Ml Soln 30 Ml PO DAILY Levemir Flextouch Pen Inj (Insulin Detemir) 300 unit/3 ML Pen 15 Units SQ Q12HR NEB Duragesic Patch 72 HR (Fentanyl) 50 Mcg/Hr Patch 1 Patch TD Q72H Amiodarone (Amiodarone HCl) 200 Mg Tab 200 Mg PO DAILY Duoneb (Ipratropium-Albuterol Neb) 0.5-2.5 Mg/3 Ml Neb 1 Ampule INH QID NEB Flomax (Tamsulosin HCl) 0.4 Mg Cap 0.4 Mg PO HS Cardizem CD 24 HR (Diltiazem CD 24 HR) 240 Mg Caper 240 Mg PO BID Zantac (Ranitidine HCl) 150 Mg Tab 150 Mg PO BID Protonix (Pantoprazole Sodium) 40 Mg Tab 40 Mg PO DAILY Atorvastatin (Atorvastatin Calcium) 40 Mg Tab 40 Mg PO HS Spiriva Handihaler (Tiotropium Inh) 18 Mcg Cap 18 Mcg INH DAILY 1 capsule = 18 mcg Xarelto (Rivaroxaban) 20 Mg Tab 20 Mg PO DAILY Reported Zithromax Z-Joe (Azithromycin) 250 Mg Dspk 250 Mg PO DIRECTED 5 Days 500 MG (2 tabs) day 1, then 1 tab days 2-5. Florastor (Saccharomyces Boulardii) 250 Mg Cap 250 Mg PO BID 10 Days Novolog Inj (Insulin Aspart) 1,000 Unit/10 Ml Vial 0 SQ ACHS Sliding Scale: 150-199=1 UNIT, 200-249=3 UNITS, 250-299=5 UNITS, 300-347=7 UNITS, >349=9 UNITS Levothyroxine (Levothyroxine Sodium) 25 Mcg Tab 225 Mcg PO DAILY Take 1 tablet (25mcg) with 200mcg tablet for a total dose of 225mcg Levothyroxine (Levothyroxine Sodium) 200 Mcg Tab 225 Mcg PO DAILY Take 1 tablet (200mcg) with 25mcg tablet for a total dose of 225mcg Klonopin (Clonazepam) 0.5 Mg Tab 0.5 Mg PO Q12HR Zofran (Ondansetron HCl) 8 Mg Tab 8 Mg PO Q8HR PRN Lasix (Furosemide) 20 Mg Tab 20 Mg PO DAILY 3 Days Vitamin D3 (Cholecalciferol) 1,000 Unit Tab 2,000 Units PO DAILY Oyster Shell 500 Mg Tab 500 Mg PO DAILY Nicotine Patch (Nicotine) Unknown Strength Patch 1 Patch T-DERMAL DAILY Senna (Sennosides) 8.8 Mg/5 Ml Syp 15 Mg PO BID Trazodone (Trazodone HCl) 100 Mg Tab 200 Mg PO HS Multivitamin Adults (Multiple Vitamins W/ Minerals) 1 Tab 1 Tab PO DAILY Docusate Sodium 100 Mg Cap 100 Mg PO BID Proair Respiclick Inh (Albuterol Sulfate) 90 Mcg/Act Aerp 2 Puff INH Q4HR PRN Review of Systems Except as stated in HPI: all other systems reviewed are Neg Physical Exam Narrative GENERAL: Well-nourished male patient, lying in bed, in no acute distress. Patient is arousable to voice. SKIN: Warm and dry. HEAD: Atraumatic. Normocephalic. EYES: Pupils equal and round. No scleral icterus. No injection or drainage. ENT: No nasal bleeding or discharge. Mucous membranes pink and moist. NECK: Trachea midline. No JVD. CARDIOVASCULAR: Regular rate and rhythm. RESPIRATORY: No accessory muscle use. Diminished, due to poor inspiratory effort.. Breath sounds equal bilaterally. GASTROINTESTINAL: Abdomen soft, non-tender, nondistended. Hepatic and splenic margins not palpable. MUSCULOSKELETAL: No obvious deformities. No clubbing. No cyanosis. No edema. Tenderness. Palpation of the anterolateral right shoulder. No deformity. Distal pulses are palpable. Cap refill is within normal limits. NEUROLOGICAL: Lethargic, arousable to voice.. No obvious cranial nerve deficits. Motor grossly within normal limits. Normal speech. Data Data Last Documented VS Vital Signs Date Time Temp Pulse Resp B/P Pulse Ox O2 Delivery O2 Flow Rate FiO2 02/19/17 18:46 98 Nasal Cannula 2 02/19/17 18:26 85 16 114/58 Orders Electrocardiogram (02/19/17 17:45) Complete Blood Count With Diff (02/19/17 17:45) Comprehensive Metabolic Panel (02/19/17 17:45) Prothrombin Time / Inr (Pt) (02/19/17 17:45) Act Partial Throm Time (Ptt) (02/19/17 17:45) Lactic Acid Sepsis Protocol (02/19/17 17:45) Ckmb (Isoenzyme) Profile (02/19/17 17:45) Troponin I (02/19/17 17:45) Urinalysis - C+S If Indicated (02/19/17 17:45) Influenzae A/B Antigen (02/19/17 17:45) Blood Culture (02/19/17 17:45) Chest, Single Ap (02/19/17 17:45) Blood Glucose (02/19/17 17:45) Ecg Monitoring (02/19/17 17:45) Iv Access Insert/Monitor (02/19/17 17:45) Oximetry (02/19/17 17:45) Oxygen Administration (02/19/17 17:45) Shoulder, Complete (>2vws) (02/19/17 ) Admit Order (Ed Use Only) (02/19/17 19:17) Labs Laboratory Tests Test 02/19/17 18:20 White Blood Count 4.6 TH/MM3 Red Blood Count 4.16 MIL/MM3 Hemoglobin 11.4 GM/DL Hematocrit 34.7 % Mean Corpuscular Volume 83.5 FL Mean Corpuscular Hemoglobin 27.4 PG Mean Corpuscular Hemoglobin 32.9 % Concent Red Cell Distribution Width 18.9 % Platelet Count 293 TH/MM3 Mean Platelet Volume 7.2 FL Neutrophils (%) (Auto) 81.3 % Lymphocytes (%) (Auto) 10.2 % Monocytes (%) (Auto) 7.9 % Eosinophils (%) (Auto) 0.0 % Basophils (%) (Auto) 0.6 % Neutrophils # (Auto) 3.8 TH/MM3 Lymphocytes # (Auto) 0.5 TH/MM3 Monocytes # (Auto) 0.4 TH/MM3 Eosinophils # (Auto) 0.0 TH/MM3 Basophils # (Auto) 0.0 TH/MM3 CBC Comment DIFF FINAL Differential Comment Prothrombin Time 12.7 SEC Prothromb Time International 1.1 RATIO Ratio Activated Partial 31.9 SEC Thromboplast Time Sodium Level 135 MEQ/L Potassium Level 4.0 MEQ/L Chloride Level 97 MEQ/L Carbon Dioxide Level 32.8 MEQ/L Anion Gap 5 MEQ/L Blood Urea Nitrogen 8 MG/DL Creatinine 0.54 MG/DL Estimat Glomerular Filtration 149 ML/MIN Rate Random Glucose 144 MG/DL Lactic Acid Level 0.8 mmol/L Calcium Level 8.7 MG/DL Aspartate Amino Transf 18 U/L (AST/SGOT) Albumin 2.2 GM/DL [facility] Medical Decision Making Medical Screen Exam Complete: Yes Emergency Medical Condition: Yes Medical Record Reviewed: Yes Differential Diagnosis Dehydration versus electrolyte abnormality versus altered mental status versus failure to thrive versus metastatic disease Narrative Course 76-year-old male with multiple comorbidities presents to emergency department for evaluation of failure to thrive and evaluation for PEG placement. Patient is lethargic but arousable foot to voice. Assessment is otherwise benign except for tenderness to palpation of the right shoulder. Vital signs are stable. CBC is without acute concern. CMP is partially completed this time without acute concern. Liver enzymes have not yet resulted. Troponin is not yet resulted. Lactic acid 0.8. Urinalysis has not yet been collected. I discussed the patient with Dr. Keith. Patient will be admitted observation to the health hospitalist service. Diagnosis Primary Impression: Failure to thrive in adult Additional Impression: History of throat cancer Admitting Information Admitting Physician Requests: Observation Condition: Stable Loyda Polk ELVIS Feb 19, 2017 17:45
[2017-02-19 18:26] VITALS: BP 114/58; PULSE 85; RESP 16
[2017-02-19 18:42] LABS: AUTOMATED NEUTROPHIL # 3.8 TH/MM3 (1.8-7.7); BASOPHIL % 0.6 % (0.0-2.0); HEMATOCRIT 34.7 % (39.0-51.0); HEMO FLAGS DIFF FINAL; LYMPH % 10.2 % (9.0-44.0); LYMPHOCYTE # 0.5 TH/MM3 (1.0-4.8); MEAN CELL VOLUME 83.5 FL (80.0-100.0); MEAN CORPUSCULAR HEMOGLOBIN 27.4 PG (27.0-34.0); MEAN CORPUSCULAR HGB CONC 32.9 % (32.0-36.0); MONO % 7.9 % (0.0-8.0); NEUT % 81.3 % (16.0-70.0); PLATELET COUNT 293 TH/MM3 (150-450); RED BLOOD COUNT 4.16 MIL/MM3 (4.50-5.90); RED CELL DISTRIBUTION WIDTH 18.9 % (11.6-17.2); WHITE BLOOD COUNT 4.6 TH/MM3 (4.0-11.0)
--- NOTE | 2017-02-19 18:50 | RADRPT ---
EXAM DATE/TIME: 02/19/2017 18:32 [facility] COMPARISON: CHEST SINGLE AP, February 09, 2017, 10:22. INDICATIONS : Altered mental status. MEDICAL HISTORY : Chronic obstructive pulmonary disease. SURGICAL HISTORY : None. ENCOUNTER: Initial ACUITY: 2 days PAIN SCORE: Non-responsive. LOCATION: chest FINDINGS: A single view of the chest demonstrates bilateral airspace disease, left greater than right with left effusion. No pneumothorax. Heart size upper limits normal. Atherosclerotic and mildly tortuous aorta . CONCLUSION: 1. Improved right basilar airspace disease since February 09. Slight worsening of left-sided perihilar a irspace disease. Left basilar consolidation persists with small left pleural effusion. Giorgio Maldonado MD on February 19, 2017 at 18:47 Board Certified Radiologist. This report was verified electronically.
[2017-02-19 18:59] LABS: ANION GAP 5 MEQ/L (5-15); AST (GOT) 18 U/L (15-37); BICARBONATE 32.8 MEQ/L (21.0-32.0); BLOOD UREA NITROGEN 8 MG/DL (7-18); CHLORIDE 97 MEQ/L (98-107); GLOMERULAR FILTRATION RATE 149 ML/MIN (>89); SODIUM (NA) 135 MEQ/L (136-145)
[2017-02-19 19:03] LABS: ALKALINE PHOSPHATASE 81 U/L (45-117); ALT (GPT) 57 U/L (12-78); TOTAL BILIRUBIN ADULT 0.4 MG/DL (0.2-1.0)
[2017-02-19] MEDS ORDERED: CLON.5 PO (19:12)
[2017-02-19] MEDS ORDERED: ZITHTAB PO (19:12)
[2017-02-19] MEDS ORDERED: FURO1TAB62 PO (19:12)
[2017-02-19] MEDS ORDERED: LEVO25TA4 PO (19:12)
[2017-02-19] MEDS ORDERED: NICO7DIS2 T-DERMAL (19:12)
[2017-02-19] MEDS ORDERED: VITA100018 PO (19:12)
[2017-02-19] MEDS ORDERED: ZOFR8TAB PO (19:12)
[2017-02-19] MEDS ORDERED: FLOR250C PO (19:12)
[2017-02-19] MEDS ORDERED: NOVOLOGP2 SQ (19:12)
[2017-02-19] MEDS ORDERED: LEVO200T4 PO (19:12)
[2017-02-19] MEDS ORDERED: OYST500T25 PO (19:12)
[2017-02-19 19:16] LABS: APTT (PATIENT) 31.9 SEC (24.3-30.1); INTERNATIONAL NORMALIZED RATIO 1.1 RATIO; PROTHROMBIN TIME - PATIENT 12.7 SEC (9.8-11.6)
[2017-02-19 19:26] LABS: CREATINE KINASE 34 U/L (39-308)
[2017-02-19 19:32] VITALS: BP 152/70; PULSE 86; RESP 18; TEMP 97.7; O2SAT 93
[2017-02-19] MEDS ORDERED: NALOXONE HCL 0.4 MG/ML AMP IV PRN (19:45)
--- NOTE | 2017-02-19 19:58 | RADRPT ---
EXAM DATE/TIME: 02/19/2017 19:20 [facility] COMPARISON: No previous studies available for comparison. INDICATIONS : Right shoulder pain MEDICAL HISTORY : Chronic obstructive pulmonary disease. SURGICAL HISTORY : None. ENCOUNTER: Initial ACUITY: 1 day PAIN SCORE: 0/10 LOCATION: Right Shoulder FINDINGS: There is mild osteoarthritis of the right shoulder joint and right a.c. joint. No acute fracture or d islocation. No bony destructive changes. CONCLUSION: 1. Mild osteoarthritis of the right shoulder. No acute bony abnormalities. Giorgio Maldonado MD on February 19, 2017 at 19:54 Board Certified Radiologist. This report was verified electronically.
[2017-02-19 20:31] LABS: BACTERIA, URINE FEW /hpf; BLOOD, URINE SMALL (NEG); GLUCOSE,URINE NEG (NEG); KETONE, URINE NEG (NEG); MUCUS URINE FEW /lpf (OCC); PH, URINE 8.5 (5.0-8.5); SQUAMOUS EPITHELIAL CELL URINE 1 /hpf (0-5); URINE COLOR YELLOW (YELLW/STRAW)
[2017-02-19 20:32] LABS: NITRITE,URINE POS (NEG)
[2017-02-19 20:33] LABS: COMMENT (UR) CATH-CULTURE IND; CULTURE IF INDICATED CATH CULTURE IND
[2017-02-19] MEDS: SODIUM CHLORIDE 0.9% FLUSH 10 ML FLUSH IV FLUSH SCH (20:49)
[2017-02-19 21:45] VITALS: BP 138/74; PULSE 88; RESP 20; TEMP 98; O2SAT 91
[2017-02-19 22:34] VITALS: PULSE 90
[2017-02-19 23:06] VITALS: RESP 20; O2SAT 93
--- NOTE | 2017-02-19 23:15 | HHI.HP ---
H[facility] Non-Staff Admission Diagnosis Failure to thrive; Throat CA Diagnoses: (1) Squamous cell carcinoma of epiglottis (2) Anemia (3) Dysphagia (4) Odynophagia (5) Failure to thrive in adult (6) Type 2 diabetes mellitus (7) Congestive heart failure Chief Complaint: Painful and difficult swallowing Travel History International Travel<30 Days: No Contact w/Intl Traveler <30 Da: No Traveled to Known Affected Are: No History of Present Illness Mr. 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 Casas who presents to the emergency room complaining of inability to eat or drink with failure to thrive. He is currently at [facility] for rehabilitation under the care of Dr. Mcqueen who would like him to be evaluated for PEG tube placement. The patient is seen in the CDU. He reports that he isn't having painful swallowing along with difficulty swallowing. He states that it feels like food is getting stuck in his throat. He says he has been unable to eat or drink. He denies nausea vomiting or diarrhea. He reports fatigue. He denies cough, dysuria or hematuria diarrhea, black or red stool or syncope. He appears capacitated to participate in medical decision making. He states he would be interested in getting a feeding tube placed. This is the patients 7th admission in 2017: December 11 through December 15 Pneumonia and atrial flutter with RVR January 02January 09 for facial monroy sustained while smoking and using supplemental oxygen January 15 through January 20 for sepsis, UTI, CHF January 27 january for first for pneumonias, sepsis, COPD exacerbation January 28February 05 for major depressive disorder February 05February 11 for pleural effusion . Review of Systems Except as stated in HPI: all other systems reviewed are Neg Past Family Social History Past Medical History Atrial fibrillation on Xarelto status post ablation Arthritis COPD Diabetes mellitus Gastroparesis Gastroesophageal reflux disease Hypothyroidism Pneumonia Pleural effusion Major depressive disorder Congestive heart failure . Past Surgical History Cholecystectomy Left shoulder repair with metal plate EPS with ablation Cholecystectomy Right leg surgery Reported Medications Reported Meds & Active Scripts Active Marinol (Dronabinol) 5 Mg Cap 5 Mg PO BID Morphine IR (Morphine Sulfate) 15 Mg Tab 15 Mg PO Q4H PRN Effexor XR 24 HR (Venlafaxine HCl) 75 Mg Cap 225 Mg PO DAILY Lactulose Liq (Lactulose) 10 Gm/15 Ml Soln 30 Ml PO DAILY Levemir Flextouch Pen Inj (Insulin Detemir) 300 unit/3 ML Pen 15 Units SQ Q12HR NEB Duragesic Patch 72 HR (Fentanyl) 50 Mcg/Hr Patch 1 Patch TD Q72H Amiodarone (Amiodarone HCl) 200 Mg Tab 200 Mg PO DAILY Duoneb (Ipratropium-Albuterol Neb) 0.5-2.5 Mg/3 Ml Neb 1 Ampule INH QID NEB Flomax (Tamsulosin HCl) 0.4 Mg Cap 0.4 Mg PO HS Cardizem CD 24 HR (Diltiazem CD 24 HR) 240 Mg Caper 240 Mg PO BID Zantac (Ranitidine HCl) 150 Mg Tab 150 Mg PO BID Protonix (Pantoprazole Sodium) 40 Mg Tab 40 Mg PO DAILY Atorvastatin (Atorvastatin Calcium) 40 Mg Tab 40 Mg PO HS Spiriva Handihaler (Tiotropium Inh) 18 Mcg Cap 18 Mcg INH DAILY 1 capsule = 18 mcg Xarelto (Rivaroxaban) 20 Mg Tab 20 Mg PO DAILY Reported Zithromax Z-Joe (Azithromycin) 250 Mg Dspk 250 Mg PO DIRECTED 5 Days 500 MG (2 tabs) day 1, then 1 tab days 2-5. Florastor (Saccharomyces Boulardii) 250 Mg Cap 250 Mg PO BID 10 Days Novolog Inj (Insulin Aspart) 1,000 Unit/10 Ml Vial 0 SQ ACHS Sliding Scale: 150-199=1 UNIT, 200-249=3 UNITS, 250-299=5 UNITS, 300-347=7 UNITS, >349=9 UNITS Levothyroxine (Levothyroxine Sodium) 25 Mcg Tab 225 Mcg PO DAILY Take 1 tablet (25mcg) with 200mcg tablet for a total dose of 225mcg Levothyroxine (Levothyroxine Sodium) 200 Mcg Tab 225 Mcg PO DAILY Take 1 tablet (200mcg) with 25mcg tablet for a total dose of 225mcg Klonopin (Clonazepam) 0.5 Mg Tab 0.5 Mg PO Q12HR Zofran (Ondansetron HCl) 8 Mg Tab 8 Mg PO Q8HR PRN Lasix (Furosemide) 20 Mg Tab 20 Mg PO DAILY 3 Days Vitamin D3 (Cholecalciferol) 1,000 Unit Tab 2,000 Units PO DAILY Oyster Shell 500 Mg Tab 500 Mg PO DAILY Nicotine Patch (Nicotine) Unknown Strength Patch 1 Patch T-DERMAL DAILY Senna (Sennosides) 8.8 Mg/5 Ml Syp 15 Mg PO BID Trazodone (Trazodone HCl) 100 Mg Tab 200 Mg PO HS Multivitamin Adults (Multiple Vitamins W/ Minerals) 1 Tab 1 Tab PO DAILY Docusate Sodium 100 Mg Cap 100 Mg PO BID Proair Respiclick Inh (Albuterol Sulfate) 90 Mcg/Act Aerp 2 Puff INH Q4HR PRN . Allergies: Coded Allergies: Flagyl (Verified Allergy, Severe, 01/27/17) Floxcin (Verified Allergy, Severe, 01/27/17) Latex (Verified Allergy, Severe, 01/27/17) Adhesives (Verified Allergy, Mild, 01/27/17) Active Ordered Medications Current Medications Sodium Chloride (NS Flush) 2 ml UNSCH PRN IV FLUSH FLUSH AFTER USING IV ACCESS ; Start 02/19/17 at 19:45 Sodium Chloride (NS Flush) 2 ml BID IV FLUSH Last administered on 02/19/17t 20: 49; Start 02/19/17 at 21:00 Ondansetron HCl (Zofran Inj) 4 mg Q6H PRN IVP NAUSEA OR VOMITING; Start at 19:45 Enoxaparin Sodium (Lovenox Inj) 40 mg Q24H SQ ; Start 02/20/17 at 09:00 Naloxone HCl (Narcan Inj) 0.4 mg UNSCH PRN IV SEE LABEL COMMENTS; Start at 19:45 . Family History Mother: MS, not early onset Father: PAD . Social History Tobacco: Smokes 1 PPD x has smoked for 54 years Alcohol: Denies Illicit Drugs: Denies ; in rehab at [facility] . Physical Exam Vital Signs Vital Signs Date Time Temp Pulse Resp B/P Pulse Ox O2 Delivery O2 Flow Rate FiO2 02/19/17 23:06 20 93 02/19/17 22:34 90 02/19/17 21:45 98.0 88 20 138/74 91 02/19/17 19:32 97.7 86 18 152/70 93 Nasal Cannula 3 02/19/17 18:46 98 Nasal Cannula 2 02/19/17 18:26 85 16 114/58 Nasal Cannula 2 02/19/17 18:26 94 Nasal Cannula 2 02/19/17 17:41 85 18 114/58 Physical Exam GENERAL: This is an older male patient who appears chronically ill, in no apparent distress. SKIN: No rashes, ecchymoses or lesions. Cool and dry. HEAD: Atraumatic. Normocephalic. EYES: No scleral icterus. No injection or drainage. ENT: Nose without bleeding, purulent drainage. NECK: Trachea midline. No JVD or lymphadenopathy. CARDIOVASCULAR: Regular rate and rhythm without murmurs, gallops, or rubs. RESPIRATORY: Clear to auscultation. Breath sounds equal bilaterally. No wheezes , rales, or rhonchi. GASTROINTESTINAL: Abdomen soft, non-tender, nondistended. No guarding. MUSCULOSKELETAL: Extremities without clubbing, cyanosis, or edema. No calf tenderness. NEUROLOGICAL: Awake and alert. Motor and sensory grossly within normal limits. Normal speech. Intention tremors noted . Laboratory Laboratory Tests Test 02/19/17 02/19/17 18:20 19:28 White Blood Count 4.6 Red Blood Count 4.16 Hemoglobin 11.4 Hematocrit 34.7 Mean Corpuscular Volume 83.5 Mean Corpuscular Hemoglobin 27.4 Mean Corpuscular Hemoglobin 32.9 Concent Red Cell Distribution Width 18.9 Platelet Count 293 Mean Platelet Volume 7.2 Neutrophils (%) (Auto) 81.3 Lymphocytes (%) (Auto) 10.2 Monocytes (%) (Auto) 7.9 Eosinophils (%) (Auto) 0.0 Basophils (%) (Auto) 0.6 Neutrophils # (Auto) 3.8 Lymphocytes # (Auto) 0.5 Monocytes # (Auto) 0.4 Eosinophils # (Auto) 0.0 Basophils # (Auto) 0.0 CBC Comment DIFF FINAL Differential Comment Prothrombin Time 12.7 Prothromb Time International 1.1 Ratio Activated Partial 31.9 Thromboplast Time Sodium Level 135 Potassium Level 4.0 Chloride Level 97 Carbon Dioxide Level 32.8 Anion Gap 5 Blood Urea Nitrogen 8 Creatinine 0.54 Estimat Glomerular Filtration 149 Rate Random Glucose 144 Lactic Acid Level 0.8 Calcium Level 8.7 Total Bilirubin 0.4 Aspartate Amino Transf 18 (AST/SGOT) Alanine Aminotransferase 57 (ALT/SGPT) Alkaline Phosphatase 81 Total Creatine Kinase 34 Troponin I LESS THAN 0.02 Total Protein 6.3 Albumin 2.2 Urine Color YELLOW Urine Turbidity HAZY Urine pH 8.5 Urine Specific [place] 1.012 Urine Protein TRACE Urine Glucose (UA) NEG Urine Ketones NEG Urine Occult Blood SMALL Urine Nitrite POS Urine Bilirubin NEG Urine Urobilinogen LESS THAN 2.0 Urine Leukocyte Esterase LARGE Urine RBC 42 Urine WBC Urine Squamous Epithelial 1 Cells Urine Bacteria FEW Urine Mucus FEW Microscopic Urinalysis Comment CATH-CULTURE IND Date/Time Procedure Status Source Growth 02/19/17 19:28 Urine Culture Received Urine Catheterized Urine Pending 02/19/17 19:28 Influenza Types A,B Antigen (DHARMESH) - Final Complete Nasal Washing NEGATIVE FOR FLU A AND B ANTIGEN.... 02/19/17 18:50 Aerobic Blood Culture Received Blood Peripheral Pending 02/19/17 18:50 Anaerobic Blood Culture Received Blood Peripheral Pending Result Diagram: 02/19/17 1820 02/19/17 1820 Imaging Last Impressions Chest X-Ray 02/19/17 1745 Signed Impressions: Service Date/Time: January 18:32 - CONCLUSION: 1. Improved right basilar airspace disease since February 09. Slight worsening of left-sided perihilar airspace disease. Left basilar consolidation persists with small left pleural effusion. Giorgio Maldonado MD Shoulder X-Ray 02/19/17 0000 Signed Impressions: Service Date/Time: January 19:20 - CONCLUSION: 1. Mild osteoarthritis of the right shoulder. No acute bony abnormalities. Giorgio Maldonado MD . Assessment and Plan Problem List: (1) 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 Status: Chronic (2) Anemia ICD Code: D64.9 Status: Acute (3) Dysphagia ICD Code: R13.10 Status: Acute (4) Odynophagia ICD Code: R13.10 Status: Acute (5) Failure to thrive in adult ICD Code: R62.7 Status: Acute (6) Type 2 diabetes mellitus ICD Code: E11.9 Status: Chronic (7) Congestive heart failure ICD Code: I50.9 Status: Chronic Assessment and Plan Mr. 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 Casas who presents to the emergency room complaining of inability to eat or drink with failure to thrive. 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 and follow results Dysphagia/odynophagia - NPO - ST for swallowing evaluation Failure to Thrive - consult palliative care for assistance with clarifying goals of treatment -Consult gastroenterology for PEG tube placement - Albumin 2.2 Type 2 DM - Glucose 144 on admission; patient unable to eat or drink - Accuchecks ac and hs; notify MD if BG < 70 or > 300 History of CHF - monitor I and Os qshift - cautious use of IVFs if needed - Troponin I is less than 0.02 on admission DVT prophylaxis - Lovenox 40 mg subq q24h Written by Monik Castro, acting as scribe for Dr. Keith on 02/19/17 at 23:10. All or portions of this note were transcribed by scribe [Monik Castro]. I, Dr. Jelani Keith personally performed the history, physical exam, and medical decision making; and confirmed the accuracy of the information in the transcribed note. Authenticated by Dr. Jelani Keith on 02/19/17 at 23:10. Discussed Condition With ER physician, RN, and patient Problem Qualifiers (1) Anemia: Qualified Code: D64.9 - Anemia, unspecified type (2) Type 2 diabetes mellitus: Monik Castro Feb 19, 2017 23:15 Jelani Keith MD Feb 20, 2017 09:25
[2017-02-20] VITALS (7 sets, daily range): BP systolic 110–142; BP diastolic 62–80; PULSE 91–117; RESP 18–28; TEMP 97.9–99.4; O2SAT 92–99
[2017-02-20] MEDS ORDERED: INSULIN ASPART 1,000 UNITS/10 ML VIAL SQ ONE (07:30)
[2017-02-20 08:07] LABS: AUTOMATED NEUTROPHIL # 4.4 TH/MM3 (1.8-7.7); BASOPHIL # 0.1 TH/MM3 (0-0.2); BASOPHIL % 1.1 % (0.0-2.0); HEMATOCRIT 32.7 % (39.0-51.0); LYMPH % 7.1 % (9.0-44.0); LYMPHOCYTE # 0.4 TH/MM3 (1.0-4.8); MEAN CELL VOLUME 83.4 FL (80.0-100.0); MEAN CORPUSCULAR HEMOGLOBIN 27.4 PG (27.0-34.0); MEAN CORPUSCULAR HGB CONC 32.9 % (32.0-36.0); MONO % 7.1 % (0.0-8.0); NEUT % 84.7 % (16.0-70.0); PLATELET COUNT 256 TH/MM3 (150-450); RED BLOOD COUNT 3.93 MIL/MM3 (4.50-5.90); RED CELL DISTRIBUTION WIDTH 18.3 % (11.6-17.2); WHITE BLOOD COUNT 5.2 TH/MM3 (4.0-11.0)
[2017-02-20 08:08] LABS: HEMO FLAGS AUTO DIFF
[2017-02-20] MEDS: SODIUM CHLORIDE 0.9% FLUSH 10 ML FLUSH IV FLUSH SCH ×2 (08:24→21:00)
[2017-02-20] MEDS: ENOXAPARIN SODIUM 40 MG/0.4 ML SYRINGE SQ SCH (08:24)
[2017-02-20 08:31] LABS: BICARBONATE 25.9 MEQ/L (21.0-32.0); POTASSIUM 4.2 MEQ/L (3.5-5.1)
[2017-02-20 08:39] LABS: KERATOCYTES 1+ (NORMAL)
[2017-02-20 08:41] LABS: OVALOCYTES 1+ (NORMAL); PLATELET ESTIMATE SMEAR NORMAL (NORMAL); PLATELET MORPHOLOGY NORMAL (NORMAL); SCAN/DIFF AUTO DIFF CONFIRMED
[2017-02-20] MEDS ORDERED: MORPHINE SULFATE 15 MG TAB PO PRN (08:45)
[2017-02-20] MEDS: SODIUM CHLORIDE 0.9% FLUSH 10 ML FLUSH IV FLUSH PRN ×3 (10:29→17:20)
[2017-02-20] MEDS: MORPHINE SULFATE 4 MG/ML INJ IV PUSH PRN ×4 (10:29→20:01)
--- NOTE | 2017-02-20 10:52 | PD.CONS ---
Consult Service Palliative Care . Consult Requested By Dr. Keith . Primary Care Physician Non-Staff Reason for Consultation a. To assist with evaluation and management of symptoms including: pain, dysphagia. b. To assist medical decision maker(s) with: better understanding of current medical conditions; weighing benefits/burdens of medical treatment options; making medical treatment decisions. . HPI History of Present Illness Mr. 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 Casas. This is the patients 7th admission in 2017: December 11 through December 15 Pneumonia and atrial flutter with RVR January 02 through January 09 for facial monroy sustained while smoking and using supplemental oxygen January 15 through January 20 for sepsis, UTI, CHF January 27 january for first for pneumonias, sepsis, COPD exacerbation January 28 through February 05 for major depressive disorder February 05 through February 11 for pleural effusion He has been at [facility] for rehab since 02/11/17 (with tentative 2 week rehab ) [place] [facility] [place] In speaking with Dr. Casas's radiation oncology office this patient has not started radiation treatment, as he was in the process of transferring care to the [place] with plan to start radiation with Dr. Casas in the coming week or so, after PET scan. Patient presented to [facility] emergency department on 02/19/17 with reports of inability to eat or drink with failure to thrive. He was transferred from [facility] for rehabilitation under the care of Dr. Mcqueen for evaluation for PEG tube placement. reports he has lost about 15 pounds in the past 3 weeks. He has only been eating small amounts, soup and pudding. He has been unable to stand independently since January 24 at which time his knees buckled and fell into bed. In rehab indicates he needed 2 person assist for transfers and 1 person assist to sit on side of bed. Palliative care is consulted to further clarify treatment goals. Patient and his remain hopeful he will be able to start radiation for this potentially curable cancer. is realistic and knows he may never be strong enough to have radiation. They desire FULL CODE at this time. Discussed with ELVIS Carrion with GI they will plan for G/J tube placement through IR due to underlying gastroparesis. Palliative care will continue to follow. . Function/Cognitive Trajectory See HPI. . Review of Systems Constitutional: COMPLAINS OF: Fatigue, Weight loss, Change in appetite ( decreased), Generalized weakness Gastrointestinal: COMPLAINS OF: Difficulty Swallowing, Anorexia, Dyspepsia or heartburn Musculoskeletal: COMPLAINS OF: Back pain (chronic ) Hematologic/Lymphatics: COMPLAINS OF: Bruising Neurologic: COMPLAINS OF: Poor Balance (unable to stand independently ) Psychiatric: COMPLAINS OF: Depression Other ROS: Lethargic ROS per patient, and EMR review. Pt falls asleep during my visit. Past Family Social History Coded Allergies: Flagyl (Verified Allergy, Severe, 01/27/17) Floxcin (Verified Allergy, Severe, 01/27/17) Latex (Verified Allergy, Severe, 01/27/17) Adhesives (Verified Allergy, Mild, 01/27/17) *MDRO Multi-Drug Resistant Organism (Verified Adverse Reaction, Unknown, ) 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/17 Past Medical History Atrial fibrillation on Xarelto status post ablation Arthritis COPD Diabetes mellitus Gastroparesis Gastroesophageal reflux disease Hypothyroidism Pneumonia Pleural effusion Major depressive disorder Congestive heart failure . Past Surgical History Cholecystectomy Left shoulder repair with metal plate EPS with ablation Cholecystectomy Right leg surgery . Reported Medications Reported Meds & Active Scripts Active Marinol (Dronabinol) 5 Mg Cap 5 Mg PO BID Morphine IR (Morphine Sulfate) 15 Mg Tab 15 Mg PO Q4H PRN Effexor XR 24 HR (Venlafaxine HCl) 75 Mg Cap 225 Mg PO DAILY Lactulose Liq (Lactulose) 10 Gm/15 Ml Soln 30 Ml PO DAILY Levemir Flextouch Pen Inj (Insulin Detemir) 300 unit/3 ML Pen 15 Units SQ Q12HR NEB Duragesic Patch 72 HR (Fentanyl) 50 Mcg/Hr Patch 1 Patch TD Q72H Amiodarone (Amiodarone HCl) 200 Mg Tab 200 Mg PO DAILY Duoneb (Ipratropium-Albuterol Neb) 0.5-2.5 Mg/3 Ml Neb 1 Ampule INH QID NEB Flomax (Tamsulosin HCl) 0.4 Mg Cap 0.4 Mg PO HS Cardizem CD 24 HR (Diltiazem CD 24 HR) 240 Mg Caper 240 Mg PO BID Zantac (Ranitidine HCl) 150 Mg Tab 150 Mg PO BID Protonix (Pantoprazole Sodium) 40 Mg Tab 40 Mg PO DAILY Atorvastatin (Atorvastatin Calcium) 40 Mg Tab 40 Mg PO HS Spiriva Handihaler (Tiotropium Inh) 18 Mcg Cap 18 Mcg INH DAILY 1 capsule = 18 mcg Xarelto (Rivaroxaban) 20 Mg Tab 20 Mg PO DAILY Reported Zithromax Z-Joe (Azithromycin) 250 Mg Dspk 250 Mg PO DIRECTED 5 Days 500 MG (2 tabs) day 1, then 1 tab days 2-5. Florastor (Saccharomyces Boulardii) 250 Mg Cap 250 Mg PO BID 10 Days Novolog Inj (Insulin Aspart) 1,000 Unit/10 Ml Vial 0 SQ ACHS Sliding Scale: 150-199=1 UNIT, 200-249=3 UNITS, 250-299=5 UNITS, 300-347=7 UNITS, >349=9 UNITS Levothyroxine (Levothyroxine Sodium) 25 Mcg Tab 225 Mcg PO DAILY Take 1 tablet (25mcg) with 200mcg tablet for a total dose of 225mcg Levothyroxine (Levothyroxine Sodium) 200 Mcg Tab 225 Mcg PO DAILY Take 1 tablet (200mcg) with 25mcg tablet for a total dose of 225mcg Klonopin (Clonazepam) 0.5 Mg Tab 0.5 Mg PO Q12HR Zofran (Ondansetron HCl) 8 Mg Tab 8 Mg PO Q8HR PRN Lasix (Furosemide) 20 Mg Tab 20 Mg PO DAILY 3 Days Vitamin D3 (Cholecalciferol) 1,000 Unit Tab 2,000 Units PO DAILY Oyster Shell 500 Mg Tab 500 Mg PO DAILY Nicotine Patch (Nicotine) Unknown Strength Patch 1 Patch T-DERMAL DAILY Senna (Sennosides) 8.8 Mg/5 Ml Syp 15 Mg PO BID Trazodone (Trazodone HCl) 100 Mg Tab 200 Mg PO HS Multivitamin Adults (Multiple Vitamins W/ Minerals) 1 Tab 1 Tab PO DAILY Docusate Sodium 100 Mg Cap 100 Mg PO BID Proair Respiclick Inh (Albuterol Sulfate) 90 Mcg/Act Aerp 2 Puff INH Q4HR PRN . Current Medications Medications (Trade) Dose Ordered Sig/Melissa Route Start Time Stop Time Status Last Admin (NS Flush) 2 ml UNSCH PRN IV FLUSH 02/19/17 19:45 (NS Flush) 2 ml BID IV FLUSH 02/19/17 21:00 02/20/17 08:24 (Zofran Inj) 4 mg Q6H PRN IVP 02/19/17 19:45 (Lovenox Inj) 40 mg Q24H SQ 02/20/17 09:00 02/20/17 08:24 (Narcan Inj) 0.4 mg UNSCH PRN IV 02/19/17 19:45 (Msir) 15 mg Q4H PRN PO 02/20/17 08:45 (Morphine Inj) 2 mg Q2H PRN IV PUSH 02/20/17 09:15 . Family History * Mother of heart failure at unkown age * Father of complications of what sounds like polycythemia, PAD * Grandfather with diabetes * Brother at age 21 from complications of polio . Substance Use Tobacco: One pack per day smoker for 56 years. Has not smoked for 18 days. Alcohol: No history of abuse Prescription med abuse: No history of abuse. Illicits: No known use of illicits. . Psychosocial History The patient was born in [place]. He has lived in [place] most of his life. Patient completed high school, served in the [employer] for 4 years and received an honorable discharge. He served in [employer] from [id number]. 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 Patient was at age 23 and was for 30 years. He his first and has been to his current for the last 19 years. The patient has 2 childrena son and a daughter. Son lives in [place]; daughter lives in [place]. He has two grandsons via his daughter. The patient's current has 3 children of her own. The patient had one sibling, a brother , who of complications of polio at age 21. . Spiritual/Cultural Factors Patient is Yazidi and is a "believer." . Health Care Surrogate: Copy in medical record Date completed: 02/18/17 Health Care Surrogate(s): Designated health care surrogate is Dana Santana and alternate surrogate is Lenora Matos. . Today's verbally stated goals: Desires continued aggressive care including FULL CODE and feeding tube placement. . Family/friends goals: Supports patient desire for continued aggressive care including feeding tube placement. . Ethical and Legal Issues Patient is currently capacitated to make his own decisions. Designated health care surrogate is Dana Santana () and alternate surrogate is Lenora Matos ( step daughter). Physical Exam Vital Signs Date Time Temp Pulse Resp B/P Pulse Ox O2 Delivery O2 Flow Rate FiO2 02/20/17 07:36 98.0 96 18 141/80 94 02/20/17 03:20 97.9 91 19 142/73 92 02/19/17 23:06 20 93 02/19/17 22:34 90 02/19/17 21:45 98.0 88 20 138/74 91 02/19/17 19:32 97.7 86 18 152/70 93 Nasal Cannula 3 02/19/17 18:46 98 Nasal Cannula 2 02/19/17 18:26 85 16 114/58 Nasal Cannula 2 02/19/17 18:26 94 Nasal Cannula 2 02/19/17 17:41 85 18 114/58 Exam CONSTITUTIONAL/GENERAL: This is a frail patient, in no apparent distress. TUBES/LINES/DRAINS: PIV right. SKIN: No jaundice, rashes, or lesions. Ecchymoses on upper extremities. No wounds seen anteriorly. Skin temperature appropriate. Not diaphoretic. HEAD: Atraumatic. Normocephalic. EYES: Pupils equal and round and reactive. Extraocular motions intact. No scleral icterus. No injection or drainage. Fundi not examined. ENT: Hearing grossly normal. Nose without bleeding or purulent drainage. NECK: Trachea midline. CARDIOVASCULAR: Regular rate and rhythm without murmurs, gallops, or rubs. No JVD. Peripheral pulses symmetric. RESPIRATORY/CHEST: Symmetric, unlabored respirations. Course breath sounds bilateral bases. GASTROINTESTINAL: Abdomen soft, non-tender, nondistended. No guarding. Bowel sounds present. GENITOURINARY: Without palpable bladder distension. MUSCULOSKELETAL: Extremities without clubbing, cyanosis, or edema. No mottling or clubbing. LYMPHATICS: No palpable cervical or supraclavicular adenopathy. NEUROLOGICAL: Awake, lethargic. Follows commands. Cognitively sharp. Moves all extremities. General weakness. PSYCHIATRIC: + depression. no apparent hallucinations or other psychotic thought process. . Diagnostic Tests Laboratory Laboratory Tests Test 02/19/17 02/19/17 02/20/17 18:20 19:28 06:12 White Blood Count 4.6 TH/MM3 5.2 TH/MM3 (4.0-11.0) (4.0-11.0) Red Blood Count 4.16 MIL/MM3 3.93 MIL/MM3 (4.50-5.90) (4.50-5.90) Hemoglobin 11.4 GM/DL 10.8 GM/DL (13.0-17.0) (13.0-17.0) Hematocrit 34.7 % 32.7 % (39.0-51.0) (39.0-51.0) Mean Corpuscular Volume 83.5 FL 83.4 FL (80.0-100.0) (80.0-100.0) Mean Corpuscular Hemoglobin 27.4 PG 27.4 PG (27.0-34.0) (27.0-34.0) Mean Corpuscular Hemoglobin 32.9 % 32.9 % Concent (32.0-36.0) (32.0-36.0) Red Cell Distribution Width 18.9 % 18.3 % (11.6-17.2) (11.6-17.2) Platelet Count 293 TH/MM3 256 TH/MM3 (150-450) (150-450) Mean Platelet Volume 7.2 FL 7.4 FL (7.0-11.0) (7.0-11.0) Neutrophils (%) (Auto) 81.3 % 84.7 % (16.0-70.0) (16.0-70.0) Lymphocytes (%) (Auto) 10.2 % 7.1 % (9.0-44.0) (9.0-44.0) Monocytes (%) (Auto) 7.9 % (0.0-8.0) 7.1 % (0.0-8.0) Eosinophils (%) (Auto) 0.0 % (0.0-4.0) 0.0 % (0.0-4.0) Basophils (%) (Auto) 0.6 % (0.0-2.0) 1.1 % (0.0-2.0) Neutrophils # (Auto) 3.8 TH/MM3 4.4 TH/MM3 (1.8-7.7) (1.8-7.7) Lymphocytes # (Auto) 0.5 TH/MM3 0.4 TH/MM3 (1.0-4.8) (1.0-4.8) Monocytes # (Auto) 0.4 TH/MM3 0.4 TH/MM3 (0-0.9) (0-0.9) Eosinophils # (Auto) 0.0 TH/MM3 0.0 TH/MM3 (0-0.4) (0-0.4) Basophils # (Auto) 0.0 TH/MM3 0.1 TH/MM3 (0-0.2) (0-0.2) CBC Comment DIFF FINAL AUTO DIFF Differential Comment AUTO DIFF CONFIRMED Prothrombin Time 12.7 SEC (9.8-11.6) Prothromb Time International 1.1 RATIO Ratio Activated Partial 31.9 SEC Thromboplast Time (24.3-30.1) Sodium Level 135 MEQ/L 134 MEQ/L (136-145) (136-145) Potassium Level 4.0 MEQ/L 4.2 MEQ/L (3.5-5.1) (3.5-5.1) Chloride Level 97 MEQ/L 97 MEQ/L (98-107) (98-107) Carbon Dioxide Level 32.8 MEQ/L 25.9 MEQ/L (21.0-32.0) (21.0-32.0) Anion Gap 5 MEQ/L (5-15) 11 MEQ/L (5-15) Blood Urea Nitrogen 8 MG/DL (7-18) 10 MG/DL (7-18) Creatinine 0.54 MG/DL 0.49 MG/DL (0.60-1.30) (0.60-1.30) Estimat Glomerular Filtration 149 ML/MIN 166 ML/MIN Rate (>89) (>89) Random Glucose 144 MG/DL 297 MG/DL (74-106) (74-106) Lactic Acid Level 0.8 mmol/L (0.4-2.0) Calcium Level 8.7 MG/DL 8.3 MG/DL (8.5-10.1) (8.5-10.1) Total Bilirubin 0.4 MG/DL (0.2-1.0) Aspartate Amino Transf 18 U/L (15-37) (AST/SGOT) Alanine Aminotransferase 57 U/L (12-78) (ALT/SGPT) Alkaline Phosphatase 81 U/L (45-117) Total Creatine Kinase 34 U/L (39-308) Troponin I LESS THAN 0.02 NG/ML (0.02-0.05) Total Protein 6.3 GM/DL (6.4-8.2) Albumin 2.2 GM/DL (3.4-5.0) Urine Color YELLOW (YELLW/STRAW) Urine Turbidity HAZY (CLEAR) Urine pH 8.5 (5.0-8.5) Urine Specific [place]all 1.012 (1.002-1.035) Urine Protein TRACE mg/dL (NEG-TRACE) Urine Glucose (UA) NEG mg/dL (NEG) Urine Ketones NEG mg/dL (NEG) Urine Occult Blood SMALL (NEG) Urine Nitrite POS (NEG) Urine Bilirubin NEG (NEG) Urine Urobilinogen LESS THAN 2.0 MG/DL (LESS THAN 2.0) Urine Leukocyte Esterase LARGE (NEG) Urine RBC 42 /hpf (0-3) Urine WBC /hpf (0-5) Urine Squamous Epithelial 1 /hpf (0-5) Cells Urine Bacteria FEW /hpf (NONE) Urine Mucus FEW /lpf (OCC) Microscopic Urinalysis Comment CATH-CULTURE IND Platelet Estimate NORMAL (NORMAL) Platelet Morphology Comment NORMAL (NORMAL) Ovalocytes 1+ (NORMAL) Keratocytes 1+ (NORMAL) Result Diagram: 02/20/17 0612 02/20/17 0612 Microbiology Microbiology Date/Time Procedure Status Source Growth 02/19/17 18:20 Aerobic Blood Culture Received Blood Peripheral Pending 02/19/17 18:20 Anaerobic Blood Culture Received Blood Peripheral Pending 02/19/17 18:50 Aerobic Blood Culture Received Blood Peripheral Pending 02/19/17 18:50 Anaerobic Blood Culture Received Blood Peripheral Pending 02/19/17 19:28 Influenza Types A,B Antigen (DHARMESH) - Final Complete Nasal Washing NEGATIVE FOR FLU A AND B ANTIGEN.... 02/19/17 19:28 Urine Culture Received Urine Catheterized Urine Pending . Imaging Last Impressions Chest X-Ray 02/19/17 1843 Signed Impressions: Service Date/Time: January 18:32 - CONCLUSION: 1. Improved right basilar airspace disease since February 09. Slight worsening of left-sided perihilar airspace disease. Left basilar consolidation persists with small left pleural effusion. Giorgio Maldonado MD Shoulder X-Ray 02/19/17 0000 Signed Impressions: Service Date/Time: January 19:20 - CONCLUSION: 1. Mild osteoarthritis of the right shoulder. No acute bony abnormalities. Giorgio Maldonado MD . Patient/Family Conference Present at Family Conference: Met with patient and . Family Conference Time (mins): 60 Family Conference Location: Bedside Issues Discussed: * Palliative care role, purpose, approach * Additional medical, psychosocial, and spiritual history * Patients general health, functional status, and cognitive changes in the months leading up to the current hospitalization * Patient/family understanding of the current medical problems * Patient/family understanding of prognosis * Patients goals of care as best understood from advance directives and/or conversations and/or values * Current medical treatment options and benefits/burdens of those options * Likely scenarios comparing ongoing aggressive care with a transition to comfort measures only * Questions answered to the best of my ability * Palliative care contact information provided Assessment and Plan Disease Oriented Problem List: (1) Failure to thrive in adult (2) Type 2 diabetes mellitus (3) Squamous cell carcinoma of epiglottis (4) Dysphagia (5) Odynophagia Symptom Scale: (1) Depression 0-10 Scale: Unable to quantify (2) Decreased oral intake 0-10 Scale: Unable to quantify (3) Generalized weakness 0-10 Scale: Unable to quantify (4) Poor appetite 0-10 Scale: Unable to quantify Pertinent Non-Medical Issues Psychosocial: Primary local psychosocial support is from his spouse. He has his own children in [place] and [place] Spiritual: Yazidi. A raw products director has already visited him. Legal: No advance directives. would be proxy if patient becomes incapacitate. Ethical issues impacting care: Patient is currently capacitated to make his own health care decisions. . Important Contacts * Dana Santana (spouse) [phone]; [phone] * Lenora Matos (daughter) [phone] . Prognosis Patient has had 7 hospitalizations since November 2016, he has general debility, failure to thrive and multiple medical comorbidities, he has an early SCC of the epiglottis that per radiation oncology is potentially curable if he is able to get and survive treatment. . Code Status: Full Code Plan * Decision Maker: Patient is currently capacitated. Designated health care surrogate is Dana Santana and alternate surrogate is Lenora Matos. * FULL CODE * Palliative care met with patient/ family: He desires FULL CODE and feeding tube placement, hopes to return to rehab to get strong enough to obtain radiation therapy as previously planned. * SYMPTOMS: Pain:chronic pain in back, denies pain in throat. Decreased appetite : secondary to malignancy. Plan for G/J tube placement. Weakness: due to comorbidities, cancer and frequent hospitalizations. * Palliative care number provided. * Palliative care will continue to follow throughout hospital course to assist with symptom management and clarification of goals as needed. . Thank you for the opportunity to participate in the care of Mr. Santana. Attestation To help prompt me to consider important information that might be impacting today's encounter and assessment, information from prior notes written by myself or my colleagues may have been "brought forward" into today's note. My signature on this note, however, is an attestation that I personally performed the exam, history, and/or decision-making noted today, and, unless otherwise indicated, the interactions with patient, family, and staff as well as the review of records all occurred today. I also attest that the listed assessment and stated plan reflect my best clinical judgment today based on the combination of historical information, prior notes, and today's exam/ interactions. When time spent is documented, it refers only to time spent today by the signer, or if indicated, combined time spent today by collaborating physician/nurse practitioner. JESSA JOSEPH Feb 20, 2017 10:52
--- NOTE | 2017-02-20 12:16 | PD.CONS ---
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 He was seen by Dr. Casas, who was preparing him for radiation. This is currently on hold because the DC wanted to transfer his care to the DC and because of his deconditioned state. He has had had multiple hospitalizations during the last month for pneumonia and atrial flutter with RVR; facial monroy sustained while smoking and using supplemental oxygen; sepsis, UTI, CHF; pneumonia, sepsis, COPD exacerbation; depression; and pleural effusion. He is currently at [facility] for rehabilitation. He was sent to the hospital for failure to thrive, dysphagia, and evaluation for PEG tube placement. Of note the patient has a history of gastroparesis. He has been on Reglan, MiraLAX, and Protonix for this in the past although he is not currently receiving Reglan. The patient tells me that he had a decreased appetite and has been having intermittent dysphagia, with solid foods getting caught in his upper esophagus for the past 3 months. He does okay with pured foods, pudding, and liquids. However any solids will get caught in his upper esophagus and he reports that he now has to put his pills and pudding and able to be able to swallow. This has been progressively getting worse over the past 3 months. His weight has gone from 183 pounds down to 159, a 24 pound weight loss in the past 3 months. He denies any nausea or vomiting, abdominal pain. He last took his Xarelto yesterday morning according to the retirement records. He also received Lovenox this morning around 8:30 AM. 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 He had an EGD/Colonoscopy (09/25/15) ----> mild antral gastropathy, otherwise normal, sessile polyp 5-9 mm in the cecum, 2 sessile polyps in the ascending colon. Pathology revealed duodenal mucosa without significant pathologic change , villous architecture within normal limits, gastric mucosa with reactive gastroplasty accompanied by regenerative epithelial changes and lamina propria fibrosis, negative for intestinal metaplasia or dysplasia, H. Pylori organisms are not identified by HP immunostain. (Isabella Burgess) PFSH Past Medical History Atrial fibrillation on Xarelto status post ablation Arthritis COPD Diabetes mellitus Gastroparesis Gastroesophageal reflux disease Hypothyroidism Pneumonia Pleural effusion Major depressive disorder Congestive heart failure . Past Surgical History Cholecystectomy Left shoulder repair with metal plate EPS with ablation Cholecystectomy Right leg surgery . (Isabella Burgess) Coded Allergies: Flagyl (Verified Allergy, Severe, 01/27/17) Floxcin (Verified Allergy, Severe, 01/27/17) Latex (Verified Allergy, Severe, 01/27/17) Adhesives (Verified Allergy, Mild, 01/27/17) Family History * Mother of heart failure at unkown age * Father of complications of what sounds like polycythemia, PAD * Grandfather with diabetes * Brother at age 21 from complications of polio . Social History Tobacco: Smokes 1 PPD x has smoked for 54 years Alcohol: Denies Illicit Drugs: Denies ; in rehab at [facility] . (Isabella Burgess) GI Exam Vitals I&O Vital Signs Date Time Temp Pulse Resp B/P Pulse Ox O2 Delivery O2 Flow Rate FiO2 02/20/17 07:36 98.0 96 18 141/80 94 02/20/17 03:20 97.9 91 19 142/73 92 02/19/17 23:06 20 93 02/19/17 22:34 90 02/19/17 21:45 98.0 88 20 138/74 91 02/19/17 19:32 97.7 86 18 152/70 93 Nasal Cannula 3 02/19/17 18:46 98 Nasal Cannula 2 02/19/17 18:26 85 16 114/58 Nasal Cannula 2 02/19/17 18:26 94 Nasal Cannula 2 02/19/17 17:41 85 18 114/58 Laboratory Test 02/19/17 02/19/17 02/20/17 18:20 19:28 06:12 White Blood Count 4.6 TH/MM3 5.2 TH/MM3 Red Blood Count 4.16 MIL/MM3 3.93 MIL/MM3 Hemoglobin 11.4 GM/DL 10.8 GM/DL Hematocrit 34.7 % 32.7 % Mean Corpuscular Volume 83.5 FL 83.4 FL Mean Corpuscular Hemoglobin 27.4 PG 27.4 PG Mean Corpuscular Hemoglobin 32.9 % 32.9 % Concent Red Cell Distribution Width 18.9 % 18.3 % Platelet Count 293 TH/MM3 256 TH/MM3 Mean Platelet Volume 7.2 FL 7.4 FL Neutrophils (%) (Auto) 81.3 % 84.7 % Lymphocytes (%) (Auto) 10.2 % 7.1 % Monocytes (%) (Auto) 7.9 % 7.1 % Eosinophils (%) (Auto) 0.0 % 0.0 % Basophils (%) (Auto) 0.6 % 1.1 % Neutrophils # (Auto) 3.8 TH/MM3 4.4 TH/MM3 Lymphocytes # (Auto) 0.5 TH/MM3 0.4 TH/MM3 Monocytes # (Auto) 0.4 TH/MM3 0.4 TH/MM3 Eosinophils # (Auto) 0.0 TH/MM3 0.0 TH/MM3 Basophils # (Auto) 0.0 TH/MM3 0.1 TH/MM3 CBC Comment DIFF FINAL AUTO DIFF Differential Comment AUTO DIFF CONFIRMED Prothrombin Time 12.7 SEC Prothromb Time International 1.1 RATIO Ratio Activated Partial 31.9 SEC Thromboplast Time Sodium Level 135 MEQ/L 134 MEQ/L Potassium Level 4.0 MEQ/L 4.2 MEQ/L Chloride Level 97 MEQ/L 97 MEQ/L Carbon Dioxide Level 32.8 MEQ/L 25.9 MEQ/L Anion Gap 5 MEQ/L 11 MEQ/L Blood Urea Nitrogen 8 MG/DL 10 MG/DL Creatinine 0.54 MG/DL 0.49 MG/DL Estimat Glomerular Filtration 149 ML/MIN 166 ML/MIN Rate Random Glucose 144 MG/DL 297 MG/DL Lactic Acid Level 0.8 mmol/L Calcium Level 8.7 MG/DL 8.3 MG/DL Total Bilirubin 0.4 MG/DL Aspartate Amino Transf 18 U/L (AST/SGOT) Alanine Aminotransferase 57 U/L (ALT/SGPT) Alkaline Phosphatase 81 U/L Total Creatine Kinase 34 U/L Troponin I LESS THAN 0.02 NG/ML Total Protein 6.3 GM/DL Albumin 2.2 GM/DL Urine Color YELLOW Urine Turbidity HAZY Urine pH 8.5 Urine Specific [place] 1.012 Urine Protein TRACE mg/dL Urine Glucose (UA) NEG mg/dL Urine Ketones NEG mg/dL Urine Occult Blood SMALL Urine Nitrite POS Urine Bilirubin NEG Urine Urobilinogen LESS THAN 2.0 MG/DL Urine Leukocyte Esterase LARGE Urine RBC 42 /hpf Urine WBC /hpf Urine Squamous Epithelial 1 /hpf Cells Urine Bacteria FEW /hpf Urine Mucus FEW /lpf Microscopic Urinalysis Comment CATH-CULTURE IND Platelet Estimate NORMAL Platelet Morphology Comment NORMAL Ovalocytes 1+ Keratocytes 1+ Date/Time Procedure Status Source Growth 02/19/17 19:28 Urine Culture Received Urine Catheterized Urine Pending 02/19/17 19:28 Influenza Types A,B Antigen (DHARMESH) - Final Complete Nasal Washing NEGATIVE FOR FLU A AND B ANTIGEN.... 02/19/17 18:50 Aerobic Blood Culture - Preliminary Resulted Blood Peripheral NO GROWTH IN 1 DAY 02/19/17 18:50 Anaerobic Blood Culture - Preliminary Resulted Blood Peripheral NO GROWTH IN 1 DAY Physical Examination HEENT: Pupils round and reactive to light; normocephalic; atraumatic; no jaundice. Throat is clear. NECK: Neck is supple, no JVD, no lymphadenopathy. CHEST: Chest is clear to auscultation and percussion. CARDIAC: Regular rate and rhythm with no murmur gallop or rubs. ABDOMEN: Soft, nondistended, nontender; no hepatosplenomegaly; bowel sounds are present in all four quadrants. EXTREMITIES: No clubbing, cyanosis, or edema. SKIN: Normal; no rash; no jaundice. SURGERY CENTER ADMINISTRATOR: No focal deficits; alert and oriented times three. (Isabella Burgess [facility]) Assessment and Plan Plan ASSESSMENT: - FEN, Dysphagia, Wt. Loss. 3 month hx of decreased appetite, difficulty with solids getting caught in upper esophagus, and a 24 lb weight loss. He is on Marinol at the rehab center. He does have a known epiglottis mass which is thought to be contributing to his solids getting caught. GI consulted for peg. Ideally, he should have a G/J tube with his hx of gastroparesis, as he would more likely tolerate his feedings. However, he received Xarelto at the retirement on 02/19 and received lovenox today. Will get a Barium Swallow today to see if it is just the mass causing his dysphagia or if there are any strictures. If a stricture is present, we will consider EGD. If no stricture present, will consult IR for G/J tube placement, although this would likely not be able to be done until Thursday, as he would need to be off the Xarelto x 3 days. - Gastroparesis. Currently not having nausea/vomiting. Has been on liquid, pudding diet. - GERD. PPI - Atrial fibrillation. Xarelto at home, last had 02/19 at retirement. Had lovenox today. - Recent diagnosis of Stage I squamous cell carcinoma of the laryngeal surface fo the epiglottis 01/27/17. He was seen by Dr. Casas, who was preparing him for radiation. This is [facility] and because of his deconditioned state. - COPD, Hypothyroidism, DM, Arthritis, Depression/Anxiety, CHF per primary PLAN: - NPO for now - Barium swallow - Add Protonix 40mv IV daily - Body Team Member evaluation for TF recommendations - Will await results of barium swallow. If there is a stricture present, we will consider EGD +/- Dilatation . If no stricture present, he will need G/J tube placed by IR - Supportive care - Further recommendations to follow based on results of above - Pt seen and examined by Dr. Robert and myself and this note is written on her behalf (Isabella Burgess) Physician Comments seen, examined agree with above currently on cpap ba swallow full liquid diet (Princess Robert MD) Isabella Burgess Feb 20, 2017 12:16 Princess Robert MD Feb 20, 2017 15:55
--- NOTE | 2017-02-20 12:39 | HHI.PR ---
Subjective Remarks Follow up for dysphagia, failure to thrive. The patient reports he continues to have difficulty swallowing. He is agreeable to PEG placement. He mostly complains of feeling very claustrophobic, asking for his Klonopin. He also complains of 10/10 chronic back pain. Objective Vitals Vital Signs Date Time Temp Pulse Resp B/P Pulse Ox O2 Delivery O2 Flow Rate FiO2 02/20/17 07:36 98.0 96 18 141/80 94 02/20/17 03:20 97.9 91 19 142/73 92 02/19/17 23:06 20 93 02/19/17 22:34 90 02/19/17 21:45 98.0 88 20 138/74 91 02/19/17 19:32 97.7 86 18 152/70 93 Nasal Cannula 3 02/19/17 18:46 98 Nasal Cannula 2 02/19/17 18:26 85 16 114/58 Nasal Cannula 2 02/19/17 18:26 94 Nasal Cannula 2 02/19/17 17:41 85 18 114/58 Result Diagram: 02/20/17 0612 02/20/17 0612 Imaging Last Impressions Chest X-Ray 02/20/17 0000 Signed Impressions: Service Date/Time: Monday, February 20, 2017 14:35 - CONCLUSION: 1. Left basilar effusion and infiltrate improved when compared to earlier examination. Jose Sims MD Shoulder X-Ray 02/19/17 0000 Signed Impressions: Service Date/Time: January 19:20 - CONCLUSION: 1. Mild osteoarthritis of the right shoulder. No acute bony abnormalities. Giorgio Maldonado MD Objective Remarks GENERAL: Thin chronically ill appearing elderly male patient in [facility]. SKIN: Warm and dry. No rash. HEAD: Normocephalic. Atraumatic. EYES: Pupils equal and round. No scleral icterus. No injection or drainage. ENT: No nasal bleeding or discharge. Mucous membranes pink and moist. NECK: Supple. Trachea midline. CARDIOVASCULAR: Regular rate and rhythm. S1, S2 noted. No murmur appreciated. RESPIRATORY: No accessory muscle use. Breath sounds diminished at bilateral bases with some faint expiratory wheezing. Breath sounds equal bilaterally. GASTROINTESTINAL: Abdomen soft, non-tender, nondistended. Normoactive bowel sounds x4. MUSCULOSKELETAL: No obvious deformities. Extremities without clubbing, cyanosis , or edema. NEUROLOGICAL: Awake and alert. No obvious cranial nerve deficits. Motor grossly within normal limits. Generalized weakness. Normal speech. PSYCHIATRIC: Anxious mood; insight and judgment normal. Medications and IVs Current Medications Medications (Trade) Dose Ordered Sig/Melissa Route Start Time Stop Time Status Last Admin (NS Flush) 2 ml UNSCH PRN IV FLUSH 02/19/17 19:45 02/20/17 13:05 (NS Flush) 2 ml BID IV FLUSH 02/19/17 21:00 02/20/17 08:24 (Zofran Inj) 4 mg Q6H PRN IVP 02/19/17 19:45 (Lovenox Inj) 40 mg Q24H SQ 02/20/17 09:00 02/20/17 08:24 (Narcan Inj) 0.4 mg UNSCH PRN IV 02/19/17 19:45 (Msir) 15 mg Q4H PRN PO 02/20/17 08:45 (Morphine Inj) 2 mg Q2H PRN IV PUSH 02/20/17 09:15 02/20/17 13:05 (Cordarone) 200 mg DAILY PO 02/21/17 09:00 (Lipitor) 40 mg HS PO 02/20/17 21:00 (KlonoPIN) 0.5 mg Q12HR PO 02/20/17 13:00 02/20/17 14:11 (Cardizem Cd) 240 mg BID PO 02/20/17 21:00 (Colace) 100 mg BID PO 02/20/17 21:00 (Marinol) 5 mg BID PO 02/20/17 21:00 (Duragesic 50 Mcg Patch.72 Hr) 1 patch Q72H TD 02/20/17 13:00 02/20/17 14:15 (Lasix) 20 mg DAILY PO 02/21/17 09:00 (Synthroid) 200 mcg DAILY@06 PO 02/21/17 06:00 (Protonix) 40 mg DAILY PO 02/21/17 09:00 (Senna Liq) 15 mg BID PO 02/20/17 21:00 (Flomax) 0.4 mg HS PO 02/20/17 21:00 (Spiriva Inh) 18 mcg DAILY INH 02/21/17 09:00 (Desyrel) 200 mg HS PO 02/20/17 21:00 (Effexor Xr) 225 mg DAILY PO 02/21/17 09:00 Miscellaneous Information 1 Q3D TD 02/23/17 13:00 (Synthroid) 25 mcg DAILY@06 PO 02/21/17 06:00 Urinary Catheter: No Vascular Central Line Catheter: No A/P Problem List: (1) 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 Status: Chronic (2) Anemia ICD Code: D64.9 Status: Acute (3) Dysphagia ICD Code: R13.10 Status: Acute (4) Odynophagia ICD Code: R13.10 Status: Acute (5) Failure to thrive in adult ICD Code: R62.7 Status: Acute (6) Type 2 diabetes mellitus ICD Code: E11.9 Status: Chronic (7) Congestive heart failure ICD Code: I50.9 Status: Chronic Assessment and Plan 76-year-old male with a history of newly diagnosed 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 Casas who presents to the emergency room complaining of inability to eat or drink with failure to thrive. 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 Casas. - NPO - Monitor vital signs q4h Anemia - Hgb 11.4 stable compared with recent hospitalizations in December and January - Monitor CBC Dysphagia/odynophagia - NPO - ST for swallowing evaluation - GI consulted, recommends Barium Swallow Failure to Thrive - consult palliative care for assistance with clarifying goals of treatment, appreciate assistance - Consult gastroenterology for PEG tube placement, barium swallow ordered - Albumin 2.2 Type 2 DM - Glucose 144 on admission; patient unable to eat or drink - Accuchecks ac and hs; notify MD if BG < 70 or > 300 - Low dose SSI History of CHF - monitor I and Os qshift - cautious use of IVFs if needed - Troponin I is less than 0.02 on admission Chronic Pain & Anxiety - continue patient's home morphine IR 15mg q6h prn - IV morphine prn while NPO - continue patient's Klonopin UTI - Urine culture preliminary with gram negative rods - Start IV Rocephin - monitor for final culture 1440hrs: Dyspnea - RN reports patient having trouble breathing, O2 sat stable, 95% on 2L NC, RR 22. Patient extremely anxious and claustrophobic, likely contributing to symptoms, however does now has slight wheezing on exam. Repeat CXR ordered which actually showed improvement compared to previous study. Give duonebs, IV Solumedrol, Xanax, IV morphine, IV Lasix 20mg x1. Repeat Troponin/ EKG. Continue to monitor. Discussed with RN, screen stretcher, Halicat RN, Respiratory Therapy. DVT prophylaxis- Lovenox 40 mg subq q24h Written by Josi Santamaria, acting as scribe for Dr. Myers on 02/20/17 at 12:39. All or portions of this note were transcribed by scribe Josi Santamaria . I, Dr. Shannon Myers personally performed the history, physical exam, and medical decision making; and confirmed the accuracy of the information in the transcribed note. Authenticated by Dr. Shannon Myers on 02/20/17 at 12:39. Problem Qualifiers (1) Anemia: Qualified Code: D64.9 - Anemia, unspecified type (2) Type 2 diabetes mellitus: Josi Santamaria PA-C Feb 20, 2017 12:39 Shannon Myers MD Feb 20, 2017 18:15
[2017-02-20] MEDS ORDERED: RESP: ALBUTEROL 2.5 MG/IPRATROPIUM 0.5 MG NEB (PRN) NEB (13:00)
[2017-02-20] MEDS: clonazePAM 0.5 MG TAB PO SCH ×2 (14:11→21:00)
[2017-02-20] MEDS: fentaNYL 50 MCG/HR PATCH TD SCH (14:15)
[2017-02-20] MEDS ORDERED: methylPREDNISolone SOD SUCC 125 MG/2 ML VIAL IV PUSH ONE (14:45)
[2017-02-20] MEDS ORDERED: FUROSEMIDE 20 MG/2 ML VIAL IV PUSH ONE (14:45)
[2017-02-20] MEDS ORDERED: RESP: ALBUTEROL 2.5 MG/IPRATROPIUM 0.5 MG NEB (SCH) NEB ONE (14:45)
[2017-02-20] MEDS ORDERED: MORPHINE SULFATE 4 MG/ML INJ IV PUSH ONE (15:00)
[2017-02-20] MEDS ORDERED: ALPRAZolam 0.25 MG TAB PO ONE ×2 (15:00→21:45)
--- NOTE | 2017-02-20 15:01 | RADRPT ---
EXAM DATE/TIME: 02/20/2017 14:35 [facility] COMPARISON: CHEST SINGLE AP, February 19, 2017, 18:32. SHOULDER RIGHT COMPLETE (>2VWS), February 19, 2017, 19:20. INDICATIONS : Dyspnea. MEDICAL HISTORY : Chronic obstructive pulmonary disease. Cardiovascular disease. Hypertension. Carcinoma, not oth erwise specified. SURGICAL HISTORY : Left Shoulder Surgery. ENCOUNTER: Initial ACUITY: 1 day PAIN SCORE: 0/10 LOCATION: Bilateral chest FINDINGS: The heart is normal in size. There is a left basilar effusion and diffuse infiltrate throughout the l eft lower lobe. Findings would be concerning for pneumonia. These have improved when compared to prev ious exam. There are chronic appearing interstitial changes throughout the pulmonary parenchyma. The bony structures visualized and draped postsurgical changes in the left proximal humerus. CONCLUSION: 1. Left basilar effusion and infiltrate improved when compared to earlier examination. Jose Sims MD on February 20, 2017 at 14:58 Board Certified Radiologist. This report was verified electronically.
[2017-02-20] MEDS ORDERED: RESP: ALBUTEROL 2.5 MG/IPRATROPIUM 0.5 MG NEB (SCH) INH (16:00)
[2017-02-20] MEDS: RESP: ALBUTEROL 2.5 MG/IPRATROPIUM 0.5 MG NEB (SCH) NEB ×2 (16:39→20:51)
[2017-02-20] MEDS ORDERED: DEXTROSE 50% IN WATER 50 ML VIAL(D50) IV PUSH PRN ×2 (16:45→23:15)
[2017-02-20] MEDS ORDERED: GLUCAGON 1 MG/ML VIAL OTHER PRN ×2 (16:45→23:15)
[2017-02-20] MEDS: ONDANSETRON HCL 4 MG/2 ML VIAL IVP PRN (17:20)
[2017-02-20] MEDS ORDERED: cefTRIAXone INJ 1,000 MG in SODIUM CHLORIDE 0.9% INJ 100 ML IV SCH (18:00)
[2017-02-20] MEDS ORDERED: DILTIAZEM-CD 240 MG CAP ER PO SCH (21:00)
[2017-02-20] MEDS ORDERED: ATORVASTATIN 40 MG TAB PO SCH (21:00)
[2017-02-20] MEDS ORDERED: traZODone HCL 100 MG TAB PO SCH (21:00)
[2017-02-20] MEDS ORDERED: TAMSULOSIN HCL 0.4 MG CAP PO SCH (21:00)
[2017-02-20] MEDS ORDERED: INSULIN ASPART SUPPLEMENTAL SCALE SQ SCH (21:00)
[2017-02-20] MEDS ORDERED: DOCUSATE SODIUM 100 MG CAP PO SCH (21:00)
[2017-02-20] MEDS ORDERED: REMOVE OLD NICODERM (NICOTINE) PATCH TD SCH (21:00)
[2017-02-20] MEDS ORDERED: SENNOSIDES SYRUP 8.8 MG/5 ML CUP PO SCH (21:00)
[2017-02-20] MEDS ORDERED: DRONABINOL 5 MG CAP PO SCH (21:00)
[2017-02-20] MEDS ORDERED: D5-NS + KCL 20 MEQ INJ 1,000 ML IV PRN (22:15)
--- NOTE | 2017-02-20 22:18 | HHI.PR ---
Addendum to Inpatient Note Addendum Reason: Additional Documentation Additional Information Mr. Santana is seen in respiratory distress tonight and with increased lethargy. Bibasilar crackles are auscultated. Diet was advanced to full liquids by GI. Patient has been having dysphagia and may have aspirated. Oxygen saturation is 96% on 2 liters supplemental oxygen. Stat CXR personally reviewed and shows right basilar infiltrate along with continued left pleural effusion and infiltrate. ABGs demonstrate compensated metabolic acidosis. Treatment for pneumonia with IV Zosyn and Zithromax initiated. Patient atrial fibrillation with RVR off p.o. medications metoprolol and amiodarone. PRN Cardizem ordered for HR sustained > 120's x 20 mins. Also ordered Duonebs q2h PRN. Patient also seen and evaluated by Dr. Patel. Monik Castro Feb 20, 2017 22:18
[2017-02-20] MEDS ORDERED: DILTIAZEM HCL 25 MG/5 ML VIAL IV PRN ×2 (22:30→22:45)
--- NOTE | 2017-02-20 22:54 | RADRPT ---
EXAM DATE/TIME: 02/20/2017 22:24 [facility] COMPARISON: CHEST SINGLE AP, February 20, 2017, 14:35. INDICATIONS : Congestion. MEDICAL HISTORY : Chronic obstructive pulmonary disease. Cardiovascular disease. Carcinoma. SURGICAL HISTORY : Left shoulder surgery. ENCOUNTER: Initial ACUITY: 1 day PAIN SCORE: Non-responsive. LOCATION: Bilateral chest FINDINGS: Persistent bibasilar infiltrates, left worse than right. Cardiac contours are stable. No new acute fi ndings. CONCLUSION: Stable chest appearance Oits Pereyra MD on February 20, 2017 at 22:52 Board Certified Radiologist. This report was verified electronically.
[2017-02-20 23:00] LABS: BLOOD GAS BASE EXCESS -17.6 mmol/L (-2-2); BLOOD GAS CARBOXYHEMOGLOBIN 1.7 % (0-4); BLOOD GAS HCO3 8 mmol/L (22-26); BLOOD GAS METHEMOGLOBIN 1.6 % (0-2); BLOOD GAS O2 HGB SATURATION 93 % (90-100); BLOOD GAS OXYGEN CONTENT 14.2 Vol % (12.0-20.0); BLOOD GAS PCO2 18 mmHg (38-42); BLOOD GAS PO2 98 mmHg (61-120); BLOOD GAS TOTAL HGB 10.8 G/DL (12.0-16.0); CRITICAL VALUE YES; DRAW SITE RT BRACHIAL; LITER FLOW 3 L/M; NUMBER OF ARTERIAL PUNCTURES 1; OXYGEN DEVICE NASAL CANNULA; STAT YES; TEMP CORR TO 98.6
[2017-02-20] MEDS ORDERED: CHLORHEXIDINE GLUCONATE 2 % 1 PACK (2 CLOTHS)(extra cloths) TOP PRN (23:00)
[2017-02-20] MEDS: RESP: ALBUTEROL 2.5 MG/IPRATROPIUM 0.5 MG NEB (PRN) NEB (23:31)
[2017-02-20] MEDS: PIPERACIL-TAZO 4.5 GM PREMIX 100 ML IV SCH (23:42)
[2017-02-20] MEDS: AZITHROMYCIN INJ 500 MG in SODIUM CHLOR 0.9% 250 ML INJ 250 ML IV SCH (23:42)
[2017-02-20] MEDS: methylPREDNISolone SOD SUCC 40 MG/1 ML VIAL IV PUSH SCH (23:43)
[2017-02-21] VITALS (15 sets, daily range): BP systolic 124–153; BP diastolic 59–67; PULSE 80–109; RESP 17–47; TEMP 97.7–100.2; O2SAT 96–100
[2017-02-21] MEDS: PIPERACIL-TAZO 4.5 GM PREMIX 100 ML IV SCH ×3 (03:58→17:58)
[2017-02-21] MEDS: methylPREDNISolone SOD SUCC 40 MG/1 ML VIAL IV PUSH SCH ×3 (03:58→17:58)
[2017-02-21] MEDS: CHLORHEXIDINE GLUCONATE 2 % 1 PACK (2 CLOTHS)(taper/protocol) TOP SCH (03:58)
[2017-02-21] MEDS: INSULIN ASPART SUPPLEMENTAL SCALE SQ SCH ×6 (04:00→20:00)
[2017-02-21 05:01] LABS: AUTOMATED NEUTROPHIL # 8.9 TH/MM3 (1.8-7.7); BASOPHIL % 0.2 % (0.0-2.0); HEMATOCRIT 32.8 % (39.0-51.0); LYMPHOCYTE # 0.3 TH/MM3 (1.0-4.8); MEAN CELL VOLUME 86.9 FL (80.0-100.0); MEAN CORPUSCULAR HEMOGLOBIN 27.3 PG (27.0-34.0); MEAN CORPUSCULAR HGB CONC 31.4 % (32.0-36.0); MONO % 1.6 % (0.0-8.0); NEUT % 95.2 % (16.0-70.0); PLATELET COUNT 305 TH/MM3 (150-450); RED BLOOD COUNT 3.77 MIL/MM3 (4.50-5.90); RED CELL DISTRIBUTION WIDTH 18.5 % (11.6-17.2); WHITE BLOOD COUNT 9.3 TH/MM3 (4.0-11.0)
[2017-02-21 05:06] LABS: HEMO FLAGS AUTO DIFF
[2017-02-21 05:33] LABS: BICARBONATE 17.1 MEQ/L (21.0-32.0); MAGNESIUM 1.8 MG/DL (1.5-2.5); POTASSIUM 4.2 MEQ/L (3.5-5.1)
[2017-02-21] MEDS ORDERED: INSULIN ASPART 1,000 UNITS/10 ML VIAL SQ ONE (05:45)
[2017-02-21] MEDS ORDERED: LEVOTHYROXINE SODIUM 200 MCG TAB PO SCH (06:00)
[2017-02-21] MEDS ORDERED: LEVOTHYROXINE SODIUM 25 MCG TAB PO SCH (06:00)
--- NOTE | 2017-02-21 07:00 | HHI.PR ---
Subjective Remarks Patient in bed says he doesn;t feel good. Says he is claustrophobic and feels the room is getting smaller and he feesl anxious. Feels sob. No chest pressure. No wheezing. Satting well on NC. Labs noted with elevated glucose and with increased anion gap. Objective Vitals Vital Signs Date Time Temp Pulse Resp B/P Pulse Ox O2 Delivery O2 Flow Rate FiO2 02/21/17 06:00 94 02/21/17 04:00 94 02/21/17 04:00 99.5 94 24 145/65 99 02/21/17 02:00 99 02/21/17 00:00 100.2 109 24 126/60 96 02/21/17 00:00 109 02/20/17 21:35 117 28 97 02/20/17 20:55 95 Nasal Cannula 2.00 02/20/17 20:00 99.4 115 26 110/62 99 02/20/17 15:10 22 02/20/17 15:10 22 02/20/17 15:00 98 Venturi Mask 35 02/20/17 14:40 107 22 127/69 95 02/20/17 13:10 16 02/20/17 07:36 98.0 96 18 141/80 94 I/O 02/20/17 02/20/17 02/20/17 02/21/17 02/21/17 02/21/17 07:00 15:00 23:00 07:00 15:00 23:00 Intake Total 240 ml 507 ml Output Total 675 ml 300 ml 1100 ml Balance -675 ml -60 ml -593 ml Intake Oral 240 ml IV Total 507 ml Output Urine Total 675 ml 300 ml 1100 ml # Bowel Movements 0 Result Diagram: 02/21/17 0348 02/21/17 0348 Imaging Last Impressions Chest X-Ray 02/20/17 0000 Signed Impressions: Service Date/Time: Monday, February 20, 2017 22:24 - CONCLUSION: Stable chest appearance Otis Pereyra MD Shoulder X-Ray 02/19/17 0000 Signed Impressions: Service Date/Time: January 19:20 - CONCLUSION: 1. Mild osteoarthritis of the right shoulder. No acute bony abnormalities. 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 Casas who presents to the emergency room complaining of inability to eat or drink with failure to thrive. He is to be evaluated for PEG tube placement Dyspnea with hypoxia requiring venti mask 01/23 - RN reports patient having trouble breathing, O2 sat stable, 95% on 2L NC, RR 22. Patient extremely anxious and claustrophobic, likely contributing to symptoms, however does now has slight wheezing on exam. Repeat CXR ordered which actually showed improvement compared to previous study. Give duonebs, IV Solumedrol, Xanax, IV morphine, IV Lasix 20mg x1. Repeat Troponin/EKG. Continue to monitor. Discussed with RN, bottle assembler, Lisat RN, Respiratory Therapy. Type 2 DM - Glucose 144 on admission; patient unable to eat or drink - Accuchecks ac and hs; notify MD if BG < 70 or > 300 - Low dose SSI - Started insulin detemir 15 U BID home med as BSin 400s. Also noted elevated AG of 20. Reepat labs./ Also do abg , check B hydroxy Monitor BMP q6 hrs until; AG closing. Patien tis NPO as he did aspirate. Staret IV abx . 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 Casas. - NPO - Monitor vital signs q4h Anemia - Hgb 11.4 stable compared with recent hospitalizations in December and January - Monitor CBC Dysphagia/odynophagia - NPO - ST for swallowing evaluation - GI consulted, recommends Barium Swallow Failure to Thrive - consult palliative care for assistance with clarifying goals of treatment, appreciate assistance - Consult gastroenterology for PEG tube placement, barium swallow ordered - Albumin 2.2 History of CHF - monitor I and Os qshift - cautious use of IVFs if needed - Troponin I is less than 0.02 on admission Chronic Pain & Anxiety - continue patient's home morphine IR 15mg q6h prn - IV morphine prn while NPO - continue patient's Klonopin UTI - Urine culture preliminary with gram negative rods - Start IV Rocephin - monitor for final culture DVT prophylaxis- Lovenox 40 mg subq q24h Discussed with the nurse, patient. Problem Qualifiers (1) Anemia: Qualified Code: D64.9 - Anemia, unspecified type (2) Type 2 diabetes mellitus: Shannon Myers MD Feb 21, 2017 07:00
[2017-02-21] MEDS: RESP: ALBUTEROL 2.5 MG/IPRATROPIUM 0.5 MG NEB (SCH) NEB ×4 (08:05→19:52)
[2017-02-21] MEDS ORDERED: AMIODARONE 200 MG TAB PO SCH (09:00)
[2017-02-21] MEDS ORDERED: VENLAFAXINE HCL XR 75 MG CAP PO SCH (09:00)
[2017-02-21] MEDS ORDERED: PANTOPRAZOLE SOD 40 MG DELAYED RELEASE TAB PO SCH (09:00)
[2017-02-21] MEDS ORDERED: NICOTINE T-DERMAL SCH (09:00)
[2017-02-21] MEDS ORDERED: FUROSEMIDE 20 MG TAB PO SCH (09:00)
[2017-02-21] MEDS: SODIUM CHLORIDE 0.9% FLUSH 10 ML FLUSH IV FLUSH SCH ×2 (09:00→20:13)
[2017-02-21] MEDS ORDERED: POTASSIUM PHOSPHATE MONOBASIC 500 MG TAB PO/TUBE PRN (09:30)
[2017-02-21] MEDS ORDERED: MAGNESIUM SULFATE INJ 2 GM in SODIUM CHLORIDE 0.9% INJ 96 ML IV PRN (09:30)
[2017-02-21] MEDS ORDERED: SODIUM PHOSPHATE INJ 30 MMOL in SODIUM CHLOR 0.9% 250 ML INJ 240 ML IV PRN (09:30)
[2017-02-21] MEDS ORDERED: MAGNESIUM OXIDE 400 MG TAB PO PRN (09:30)
[2017-02-21] MEDS ORDERED: MAGNESIUM SULFATE INJ 4 GM in SODIUM CHLORIDE 0.9% INJ 92 ML IV PRN (09:30)
[2017-02-21] MEDS ORDERED: POTASSIUM CHLOR 20 MEQ PREMIX 100 ML IV PRN (09:30)
[2017-02-21] MEDS ORDERED: POTASSIUM PHOSPHATE MONOBASIC 500 MG TAB PO PRN (09:30)
[2017-02-21] MEDS ORDERED: POTASSIUM PHOSPHATE INJ 30 MMOL in SODIUM CHLOR 0.9% 250 ML INJ 250 ML IV PRN (09:30)
[2017-02-21] MEDS ORDERED: POTASSIUM CHLOR 40 MEQ PREMIX 100 ML IV PRN ×2 (09:30)
[2017-02-21] MEDS: FUROSEMIDE 20 MG/2 ML VIAL IV PUSH SCH (09:38)
[2017-02-21] MEDS: ENOXAPARIN SODIUM 40 MG/0.4 ML SYRINGE SQ SCH (09:38)
[2017-02-21] MEDS: INSULIN DETEMIR 100 UNITS/ML VIAL SQ SCH ×2 (09:39→20:15)
[2017-02-21 09:40] LABS: ACANTHOCYTES OCC (NORMAL); BANDS 24 % (0-6); BURR CELLS 1+ (NORMAL); KERATOCYTES OCC (NORMAL); METAMYELOCYTES 3 % (0-1); NEUTROPHIL # MANUAL DIFF 8.8 TH/MM3 (1.8-7.7); OVALOCYTES 1+ (NORMAL); PLATELET ESTIMATE SMEAR NORMAL (NORMAL); PLATELET MORPHOLOGY NORMAL (NORMAL); POLYS (SEG NEUTROPHILS) 68 % (16-70); WBC DIFF SAMPLE 100
[2017-02-21 09:41] LABS: SCAN/DIFF FINAL DIFF MANUAL
[2017-02-21] MEDS: SODIUM CHLOR 0.9% 1000 ML INJ 1,000 ML IV SCH ×2 (09:41→20:10)
[2017-02-21 09:56] LABS: BLOOD GAS CARBOXYHEMOGLOBIN 1.9 % (0-4); BLOOD GAS HCO3 24 mmol/L (22-26); BLOOD GAS METHEMOGLOBIN 1.3 % (0-2); BLOOD GAS O2 HGB SATURATION 93 % (90-100); BLOOD GAS OXYGEN CONTENT 13.6 Vol % (12.0-20.0); BLOOD GAS PCO2 37 mmHg (38-42); BLOOD GAS PO2 79 mmHg (61-120); BLOOD GAS TOTAL HGB 10.4 G/DL (12.0-16.0); CRITICAL VALUE NO; DRAW SITE LT RADIAL; LITER FLOW 2 L/M; NUMBER OF ARTERIAL PUNCTURES 1; OXYGEN DEVICE NASAL CANNULA; STAT NO; TEMP CORR TO 98.6; ULNAR PULSE PRESENT
--- NOTE | 2017-02-21 11:12 | EKG ---
Date Performed: 02/19/2017 Time Performed: 18:49:38 PTAGE: 76 years EKG: Sinus rhythm WITH FIRST DEGREE AV BLOCK ABNORMAL ECG PREVIOUS TRACING : 02/05/2017 11.35 DOCTOR: Atiya Viveros Interpretating Date/Time 02/21/2017 11:08:44
[2017-02-21 12:43] LABS: BETA-HYDROXYBUTYRATE 2.18 MMOL/L (0.00-0.39); BICARBONATE 29.4 MEQ/L (21.0-32.0); POTASSIUM 3.8 MEQ/L (3.5-5.1)
--- NOTE | 2017-02-21 14:44 | RADRPT ---
EXAM DATE/TIME: 02/21/2017 14:12 [place] COMPARISON: No previous studies available for comparison. INDICATIONS : Dysphagia. History of throat cancer. FLUORO TIME: 1.5 minutes IMAGE COUNT: 7 CONTRAST: 1. E-Z HD Barium Sulfate (98% w/w) MEDICAL HISTORY : Throat cancer.Cardiovascular disease. Hypertension SURGICAL HISTORY : None. ENCOUNTER: Initial ACUITY: 3 months PAIN SCORE: 0/10 LOCATION: throat. FINDINGS: The exam was modified due to the patient's inability to stand upright and exam was obtained at approx imately 45 angle with thin and thick barium. Air-contrast views of the hypopharynx demonstrate a normal mucosal surface without filling defect. R apid sequence images of the hypopharynx and cervical esophagus during the passage of barium demonstra te a normal swallowing function. No evidence of aspiration. Multiphasic examination of the esophagu s demonstrates no esophageal fold thickening, ulceration, or filling defect. The gastroesophageal ju nction is normal in configuration without evidence of hiatal hernia. At the conclusion of the exam there was a persistent amount of barium identified within the distal es ophagus with subsequent dysmotility identified within the lower two thirds of the esophagus which per sisted for several minutes and ultimately cleared with water. No aspiration was visualized. CONCLUSION: No evidence of ulceration, mass effect or stricture. Esophageal dysmotility was identified within the lower two thirds of the esophagus at the termination of the exam which ultimately cleared without ev idence of aspiration.. Debbie Haynes MD on February 21, 2017 at 14:41 Board Certified Radiologist. This report was verified electronically.
[2017-02-21] MEDS: MORPHINE SULFATE 4 MG/ML INJ IV PUSH PRN (15:33)
--- NOTE | 2017-02-21 15:55 | HHI.GIFU ---
GI Follow-up Note Consult Follow-up Subjective: Patient laying in bed comfortably, feeling better .No nausea, vomiting .Was transferred to [facility] over night due to worsening respiratory status .Awaiting Ba swallow Objective: PHYSICAL EXAMINATION: Vitals signs stable No fever Vital Signs Date Time Temp Pulse Resp B/P Pulse Ox O2 Delivery O2 Flow Rate FiO2 02/21/17 08:05 100 Nasal Cannula 2.00 02/21/17 07:59 97.7 HEENT: Pupils round and reactive to light; normocephalic; atraumatic; no jaundice. Throat is clear, sick looking NECK: Neck is supple, no JVD, no lymphadenopathy. CHEST: wheezing, crackels bilateral . CARDIAC: Regular rate and rhythm with no murmur gallop or rubs. ABDOMEN: Soft, nondistended, nontender; no hepatosplenomegaly; bowel sounds are present in all four quadrants. EXTREMITIES: No clubbing, cyanosis, or edema. SKIN: Normal; no rash; no jaundice. PICKER OPERATOR: No focal deficits; alert and oriented times three. Available Data (labs, X- Rays, Procedues) : Laboratory Tests Test 02/19/17 02/19/17 02/20/17 02/20/17 18:20 19:28 06:12 15:15 Prothrombin Time 12.7 SEC Prothromb Time International 1.1 RATIO Ratio Activated Partial 31.9 SEC Thromboplast Time Sodium Level 135 MEQ/L 134 MEQ/L Potassium Level 4.0 MEQ/L 4.2 MEQ/L Chloride Level 97 MEQ/L 97 MEQ/L Carbon Dioxide Level 32.8 MEQ/L 25.9 MEQ/L Anion Gap 5 MEQ/L 11 MEQ/L Blood Urea Nitrogen 8 MG/DL 10 MG/DL Creatinine 0.54 MG/DL 0.49 MG/DL Estimat Glomerular Filtration 149 ML/MIN 166 ML/MIN Rate Random Glucose 144 MG/DL 297 MG/DL Lactic Acid Level 0.8 mmol/L Calcium Level 8.7 MG/DL 8.3 MG/DL Total Bilirubin 0.4 MG/DL Aspartate Amino Transf 18 U/L (AST/SGOT) Alanine Aminotransferase 57 U/L (ALT/SGPT) Alkaline Phosphatase 81 U/L Total Creatine Kinase 34 U/L Troponin I LESS THAN 0.02 LESS THAN 0.02 NG/ML NG/ML Total Protein 6.3 GM/DL Albumin 2.2 GM/DL White Blood Count 4.6 TH/MM3 5.2 TH/MM3 Red Blood Count 4.16 MIL/MM3 3.93 MIL/MM3 Hemoglobin 11.4 GM/DL 10.8 GM/DL Hematocrit 34.7 % 32.7 % Mean Corpuscular Volume 83.5 FL 83.4 FL Mean Corpuscular Hemoglobin 27.4 PG 27.4 PG Mean Corpuscular Hemoglobin 32.9 % 32.9 % Concent Red Cell Distribution Width 18.9 % 18.3 % Platelet Count 293 TH/MM3 256 TH/MM3 Mean Platelet Volume 7.2 FL 7.4 FL Neutrophils (%) (Auto) 81.3 % 84.7 % Lymphocytes (%) (Auto) 10.2 % 7.1 % Monocytes (%) (Auto) 7.9 % 7.1 % Eosinophils (%) (Auto) 0.0 % 0.0 % Basophils (%) (Auto) 0.6 % 1.1 % Neutrophils # (Auto) 3.8 TH/MM3 4.4 TH/MM3 Lymphocytes # (Auto) 0.5 TH/MM3 0.4 TH/MM3 Monocytes # (Auto) 0.4 TH/MM3 0.4 TH/MM3 Eosinophils # (Auto) 0.0 TH/MM3 0.0 TH/MM3 Basophils # (Auto) 0.0 TH/MM3 0.1 TH/MM3 CBC Comment DIFF FINAL AUTO DIFF Differential Comment AUTO DIFF CONFIRMED Urine Color YELLOW Urine Turbidity HAZY Urine pH 8.5 Urine Specific [place] 1.012 Urine Protein TRACE mg/dL Urine Glucose (UA) NEG mg/dL Urine Ketones NEG mg/dL Urine Occult Blood SMALL Urine Nitrite POS Urine Bilirubin NEG Urine Urobilinogen LESS THAN 2.0 MG/DL Urine Leukocyte Esterase LARGE Urine RBC 42 /hpf Urine WBC /hpf Urine Squamous Epithelial 1 /hpf Cells Urine Bacteria FEW /hpf Urine Mucus FEW /lpf Microscopic Urinalysis Comment CATH-CULTURE IND Platelet Estimate NORMAL Platelet Morphology Comment NORMAL Ovalocytes 1+ Keratocytes 1+ B-Type Natriuretic Peptide 44 PG/ML Test 02/20/17 02/20/17 02/21/17 02/21/17 22:45 22:48 03:48 09:45 Nasal Screen MRSA (PCR) POSITIVE Blood Gas Puncture Site RT BRACHIAL LT RADIAL Blood Gas Patient Temperature 98.6 98.6 Blood Gas HCO3 8 mmol/L 24 mmol/L Blood Gas Base Excess -17.6 mmol/L 0.0 mmol/L Blood Gas Oxygen Saturation 93 % 93 % Arterial Blood pH 7.28 7.43 Arterial Blood Partial 18 mmHg 37 mmHg Pressure CO2 Arterial Blood Partial 98 mmHg 79 mmHg Pressure O2 Arterial Blood Oxygen Content 14.2 Vol % 13.6 Vol % Arterial Blood 1.7 % 1.9 % Carboxyhemoglobin Arterial Blood Methemoglobin 1.6 % 1.3 % Blood Gas Hemoglobin 10.8 G/DL 10.4 G/DL Oxygen Delivery Device NASAL CANNULA NASAL CANNULA Blood Gas Liter Flow 3 L/M 2 L/M White Blood Count 9.3 TH/MM3 Red Blood Count 3.77 MIL/MM3 Hemoglobin 10.3 GM/DL Hematocrit 32.8 % Mean Corpuscular Volume 86.9 FL Mean Corpuscular Hemoglobin 27.3 PG Mean Corpuscular Hemoglobin 31.4 % Concent Red Cell Distribution Width 18.5 % Platelet Count 305 TH/MM3 Mean Platelet Volume 7.5 FL Neutrophils (%) (Auto) 95.2 % Lymphocytes (%) (Auto) 3.0 % Monocytes (%) (Auto) 1.6 % Eosinophils (%) (Auto) 0.0 % Basophils (%) (Auto) 0.2 % Neutrophils # (Auto) 8.9 TH/MM3 Lymphocytes # (Auto) 0.3 TH/MM3 Monocytes # (Auto) 0.2 TH/MM3 Eosinophils # (Auto) 0.0 TH/MM3 Basophils # (Auto) 0.0 TH/MM3 CBC Comment AUTO DIFF Differential Total Cells 100 Counted Neutrophils % (Manual) 68 % Band Neutrophils % 24 % Lymphocytes % 3 % Monocytes % 2 % Neutrophils # (Manual) 8.8 TH/MM3 Metamyelocytes 3 % Differential Comment FINAL DIFF MANUAL Platelet Estimate NORMAL Platelet Morphology Comment NORMAL Ovalocytes 1+ Bayard Cells 1+ Acanthocytes OCC Keratocytes OCC Sodium Level 136 MEQ/L Potassium Level 4.2 MEQ/L Chloride Level 99 MEQ/L Carbon Dioxide Level 17.1 MEQ/L Anion Gap 20 MEQ/L Blood Urea Nitrogen 27 MG/DL Creatinine 0.95 MG/DL Estimat Glomerular Filtration 77 ML/MIN Rate Random Glucose 463 MG/DL Calcium Level 8.4 MG/DL Magnesium Level 1.8 MG/DL Test 02/21/17 11:21 Sodium Level 138 MEQ/L Potassium Level 3.8 MEQ/L Chloride Level 98 MEQ/L Carbon Dioxide Level 29.4 MEQ/L Anion Gap 11 MEQ/L Blood Urea Nitrogen 26 MG/DL Creatinine 1.03 MG/DL Estimat Glomerular Filtration 71 ML/MIN Rate Random Glucose 422 MG/DL Calcium Level 8.2 MG/DL Phosphorus Level 2.8 MG/DL B-Hydroxybutyrate 2.18 MMOL/L ASSESSMENT/PLAN: poor oral intake, failure to thrive may need peg tube vs g/j tube gastroparesis weight loss secondary the above Recommendations advance diet ba swallow to asses for stricture dysmotility, based on this we will decide about g/j tube by ir vs egd/dil /Botox/peg egd with feeding tube placement once clinically more stable discussed with It was a pleasure seeing Curtis Santana. Thank you for this consult. Entered by: Princess Titus MD Feb 21, 2017 15:54
--- NOTE | 2017-02-21 16:23 | EKG ---
Date Performed: 02/20/2017 Time Performed: 15:03:53 PTAGE: 76 years EKG: SINUS TACHYCARDIA BORDERLINE LEFT AXIS DEVIATION LOW QRS VOLTAGE IN EXTREMITY LEADS Since p revious tracing, no significant change noted ABNORMAL RHYTHM ECG PREVIOUS TRACING : 02/19/2017 18.49 DOCTOR: Lowell Parker Interpretating Date/Time 02/21/2017 16:22:55
[2017-02-21] MEDS: TIOTROPIUM BROMIDE 18 MCG INH INH SCH (18:00)
--- NOTE | 2017-02-21 18:18 | MB ---
cc: KETTY OWEN M.D. 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 BRIEF HISTORY This is a 76-year-old gentleman who I met with his last admission in the hospital in early January. He was admitted on that occasion with a major episode of depression. Unfortunately he had had a recent biopsy confirming a malignancy on the laryngeal surface of his epiglottis. After consultation he elected to proceed with radiation treatment. He was subsequently discharged from the hospital to a local rehab facility because of weakness after multiple hospitalizations since November as documented in his EMR. Early last week we brought this gentleman in for filming with intention to start his radiation treatment the following day. The day we were to start treatment his called and indicated that they [facility] plan, and so his treatment was placed on hold. Currently his treatment possibilities are being [facility] the [facility], and I have had no input apart from with the told me today that she is in contact with them. This gentleman was admitted on this occasion with weight loss, lethargy and a failure to thrive. He has lost approximately 20 pounds since his discharge on February 05 from this hospital. He is eating poorly. When I saw him the day of filming it was my impression that he may have been over-medicated and I am not clear if that is with antidepressant medications or pain medications or antianxiety agents. Since he was admitted on this occasion he has been seen by Dr. Robert who is considering placement of a Peg tube or a J tube. She has asked for a barium swallowing study because of his difficulty swallowing. She is questioning whether there may be esophageal or possible laryngeal stricture that needs to be considered in his plan. Unfortunately, last evening this gentleman had worsening pulmonary status and was subsequently transferred to ICU environment for observation. This morning, however, he appears to be comfortable. He is alert, answering questions and has oxygen by nasal prongs and appears to be in no respiratory distress at the moment. I also note that a chest x-ray performed at 2:35 yesterday showed stability and no worsening of his condition as interpreted on the x-ray report. His hemoglobin has been slowly dropping. It was 11.4 on admission on the , and this morning it is 10.3 but this may be a result of hydration as of course, he was eating poorly. His blood gases this morning on 2 liters of oxygen showed a oxygen saturation of 93%. PAST MEDICAL AND SURGICAL HISTORY This gentleman has a history of: 1. Atrial fibrillation on Xarelto post ablation. 2. COPD. 3. Diabetes mellitus. 4. Gastroparesis. 5. Gastroesophageal reflux. 6. Hypothyroidism. 7. Previous history of pneumonia. 8. Major depressive disorder. 9. And a history of congestive heart failure. 10. He has also had a previous cholecystectomy. 11. Left shoulder repair with metal plate. 12. Cardiac ablation. 13. Cholecystectomy. 14. And right leg surgery. REVIEW OF SYSTEMS Today this gentleman's complaints are that of fatigue, weight loss and some difficulty swallowing. He has difficulty ambulating. He cannot stand on his own and he has a history of depression. Remainder review of systems is negative. PHYSICAL EXAMINATION GENERAL: Today exam revealed that he did appear alert and oriented. VITAL SIGNS: He was noted to be afebrile with a pulse of 99 and regular, blood pressure 145/65. His O2 sats by nasal cannula on 2 liters per minute at 8 this morning were 100%. HEENT: There is no jaundice. His conjunctive and eyelids were normal. NECK: Palpation of his neck revealed no adenopathy. LUNGS: His lung hudd[place] were clear. CARDIOVASCULAR: Today on my exam his heart sounds were normal. ABDOMEN: There are no abdominal masses or tenderness. EXTREMITIES: He is moving all limbs. This gentleman's was in attendance and I have reviewed all of the information with them. Dr. Robert is working him up and he does have a barium swallow today to assess the status of his pharyngoesophagus. When he is stable from a medical point of view, she is hopeful on being able to proceed with J tube placement. I think it is critical, of course, that this gentleman has adequate nutrition as this will be a problem during radiation treatment whether it is delivered at this facility or through the [facility]. His diagnosis was made as much as two months ago. He did have a T1 lesion and we have to be hopeful that there has not been any progression. We would need an ENT consult to confirm or disprove that at the moment. I of course think it is important that this gentleman start treatment as soon as possible / practical. Radiation treatment to this region will cause a severe sore throat and so nutrition and hydration can be difficult throughout this time. We do need to try to build up his energy and strength prior to start of treatment if that is possible, but we need not delay as there has been significant delay at the present time. It did appear that he may have been over medicated in rehab and it may be valuable to have inpatient psychiatry consult to review those medications and give some advice regarding his medications on discharge so that cannot exacerbate his problems again. We will continue to follow this patient while in the hospital and after discharge. Depending on how the [facility] wants to proceed with treatment, we will of course coordinate accordingly. Thank you again. MD CARINE Romero/KK /11:58 AM /5:52 PM
[2017-02-22] VITALS (8 sets, daily range): BP systolic 124–127; BP diastolic 60–91; PULSE 85–91; RESP 20–26; TEMP 98.3–98.7; O2SAT 94–99
[2017-02-22] MEDS: PIPERACIL-TAZO 4.5 GM PREMIX 100 ML IV SCH ×5 (00:52→22:38)
[2017-02-22] MEDS: AZITHROMYCIN INJ 500 MG in SODIUM CHLOR 0.9% 250 ML INJ 250 ML IV SCH ×2 (00:53→21:11)
[2017-02-22] MEDS: methylPREDNISolone SOD SUCC 40 MG/1 ML VIAL IV PUSH SCH ×5 (00:54→22:38)
[2017-02-22] MEDS: MORPHINE SULFATE 4 MG/ML INJ IV PUSH PRN ×6 (03:02→23:59)
[2017-02-22] MEDS: INSULIN ASPART SUPPLEMENTAL SCALE SQ SCH ×7 (04:00→22:43)
[2017-02-22] MEDS: CHLORHEXIDINE GLUCONATE 2 % 1 PACK (2 CLOTHS)(taper/protocol) TOP SCH (04:00)
[2017-02-22] MEDS: ONDANSETRON HCL 4 MG/2 ML VIAL IVP PRN ×2 (04:36→10:16)
[2017-02-22] MEDS: SODIUM CHLOR 0.9% 1000 ML INJ 1,000 ML IV SCH ×2 (04:48→16:00)
[2017-02-22] MEDS: LORazepam 2 MG/ML VIAL IV PUSH PRN ×2 (05:49→22:38)
[2017-02-22 06:38] LABS: BICARBONATE 29.1 MEQ/L (21.0-32.0); POTASSIUM 3.5 MEQ/L (3.5-5.1)
[2017-02-22] MEDS: RESP: ALBUTEROL 2.5 MG/IPRATROPIUM 0.5 MG NEB (SCH) NEB ×4 (07:40→19:44)
[2017-02-22] MEDS ORDERED: METOCLOPRAMIDE HCL 10 MG/2 ML VIAL IV PUSH PRN (08:30)
[2017-02-22] MEDS: TIOTROPIUM BROMIDE 18 MCG INH INH SCH (08:55)
[2017-02-22] MEDS: INSULIN DETEMIR 100 UNITS/ML VIAL SQ SCH ×2 (08:56→20:52)
[2017-02-22] MEDS: SODIUM CHLORIDE 0.9% FLUSH 10 ML FLUSH IV FLUSH SCH ×2 (09:00→20:53)
[2017-02-22] MEDS: FUROSEMIDE 20 MG/2 ML VIAL IV PUSH SCH (10:16)
[2017-02-22] MEDS: ENOXAPARIN SODIUM 40 MG/0.4 ML SYRINGE SQ SCH (10:17)
--- NOTE | 2017-02-22 10:46 | HHI.GIFU ---
Subjective Remarks Pt complains of increased nausea today, but no vomiting. Denies any abd pain. No BM in 3 days but +Flatus. (Peace Cortez) Objective Vitals I&O Vital Signs Date Time Temp Pulse Resp B/P Pulse Ox O2 Delivery O2 Flow Rate FiO2 02/22/17 07:40 94 Nasal Cannula 2.00 02/22/17 06:00 85 02/22/17 04:00 98.6 86 26 127/62 98 02/22/17 04:00 86 02/22/17 03:11 22 02/22/17 02:00 87 02/22/17 00:00 86 02/22/17 00:00 98.7 86 24 126/60 99 02/21/17 22:00 88 02/21/17 20:00 87 02/21/17 20:00 98.4 87 18 133/62 99 02/21/17 19:57 99 Nasal Cannula 2.00 02/21/17 18:00 80 02/21/17 17:00 124/59 02/21/17 16:00 91 02/21/17 16:00 99.1 88 18 98 02/21/17 14:00 98 02/21/17 12:00 96 02/21/17 12:00 99.0 96 17 146/67 96 I/O 02/21/17 02/21/17 02/21/17 02/22/17 02/22/17 02/22/17 07:00 15:00 23:00 07:00 15:00 23:00 Intake Total 507 ml 0 ml 3009 ml Output Total 1100 ml 1300 ml 445 ml Balance -593 ml -1300 ml 2564 ml Intake Oral 0 ml 960 ml IV Total 507 ml 2049 ml Output Urine Total 1100 ml 1300 ml 445 ml # Bowel Movements 0 0 0 Laboratory Laboratory Tests Test 02/21/17 02/22/17 11:21 04:31 Sodium Level 138 139 Potassium Level 3.8 3.5 Chloride Level 98 102 Carbon Dioxide Level 29.4 29.1 Anion Gap 11 8 Blood Urea Nitrogen 26 23 Creatinine 1.03 0.80 Estimat Glomerular Filtration 71 94 Rate Random Glucose 422 202 Calcium Level 8.2 7.9 Phosphorus Level 2.8 B-Hydroxybutyrate 2.18 Date/Time Procedure Status Source Growth 02/19/17 19:28 Urine Culture - Preliminary Resulted Urine Catheterized Urine Enterobacter Cloacae Pseudomonas Species 02/19/17 19:28 Influenza Types A,B Antigen (DHARMESH) - Final Complete Nasal Washing NEGATIVE FOR FLU A AND B ANTIGEN.... 02/19/17 18:50 Aerobic Blood Culture - Preliminary Resulted Blood Peripheral NO GROWTH IN 2 DAYS 02/19/17 18:50 Anaerobic Blood Culture - Preliminary Resulted Blood Peripheral NO GROWTH IN 2 DAYS Imaging Last Impressions Barium Swallow X-Ray 02/21/17 0000 Signed Impressions: Service Date/Time: Tuesday, February 21, 2017 14:12 - CONCLUSION: No evidence of ulceration, mass effect or stricture. Esophageal dysmotility was identified within the lower two thirds of the esophagus at the termination of the exam which ultimately cleared without evidence of aspiration.. Debbie Haynes MD Chest X-Ray 02/20/17 0000 Signed Impressions: Service Date/Time: Monday, February 20, 2017 22:24 - CONCLUSION: Stable chest appearance Otis Pereyra MD Shoulder X-Ray 02/19/17 0000 Signed Impressions: Service Date/Time: January 19:20 - CONCLUSION: 1. Mild osteoarthritis of the right shoulder. No acute bony abnormalities. Giorgio Maldonado MD Physical Exam HEENT: Pupils round and reactive to light; normocephalic; atraumatic; no jaundice. NECK: Neck is supple, no JVD, no lymphadenopathy. CHEST: Wheeze bilaterally CARDIAC: Regular ABDOMEN: +BS, soft, nondistended, nontender. EXTREMITIES: No clubbing, cyanosis, or edema. SKIN: Normal; no rash; no jaundice. NEUROPSYCHOLOGY MEDICAL CONSULTANT: No focal deficits; alert and oriented times three. (Peace Cortez) Assessment and Plan Plan ASSESSMENT: - FEN, Dysphagia, Wt. Loss. 3 month hx of decreased appetite, difficulty with solids getting caught in upper esophagus, and a 24 lb weight loss. He is on Marinol at the rehab center. He does have a known epiglottis mass which is thought to be contributing to his solids getting caught. GI consulted for peg. Ideally, he should have a G/J tube with his hx of gastroparesis, as he would more likely tolerate his feedings. He last received Xarelto at the senior care on 02/19 and is on Lovenox. Barium Swallow (02/21) -->No evidence of ulceration, mass effect or stricture. Esophageal dysmotility was identified within the lower two thirds of the esophagus at the termination of the exam which ultimately cleared without evidence of aspiration. Pt is being followed by ST and currently on purred diet with nectar thickened liquids. PPI - Gastroparesis. Currently not having nausea/vomiting. - GERD. PPI - Atrial fibrillation. Xarelto at home, last had 02/19 at senior care. Currently on Lovenox. - Recent diagnosis of Stage I squamous cell carcinoma of the laryngeal surface fo the epiglottis 01/27/17. He was seen by Dr. Casas, who was preparing him for radiation. This is currently on hold because the [facility] wanted to transfer his care to the [facility] and because of his deconditioned state. - COPD, Hypothyroidism, DM, Arthritis, Depression/Anxiety, CHF per primary PLAN: - Cont. Protonix 40mv IV daily - Reglan 5mg IV q8H PRN is ordered - We will plan for EGD +/- Dilatation on 02/23 as long as pt remains stable. - NPO after MN except meds - Hold Lovenox on 02/23 - Antiemetics PRN - Supportive care - Further recommendations as the case develops - Pt seen and examined by Dr. Robert and myself and this note is written on her behalf (Peace Cortez) Physician Comments seen, examined agree with above (Princess Robert MD) Peace Cortez Feb 22, 2017 10:46 Princess Robert MD Feb 22, 2017 16:59
[2017-02-22] MEDS: POTASSIUM CHLOR 20 MEQ PREMIX 100 ML IV PRN (11:52)
--- NOTE | 2017-02-22 13:48 | HHI.PR ---
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 Patient complaints of nausea and says reglan works for him better. No wheezing. Breathing better today. He has some epigastric pain. No vomiting, diarrhea. Less anxious today. Objective Vitals Vital Signs Date Time Temp Pulse Resp B/P Pulse Ox O2 Delivery O2 Flow Rate FiO2 02/22/17 07:40 94 Nasal Cannula 2.00 02/22/17 06:00 85 02/22/17 04:00 98.6 86 26 127/62 98 02/22/17 04:00 86 02/22/17 03:11 22 02/22/17 02:00 87 02/22/17 00:00 86 02/22/17 00:00 98.7 86 24 126/60 99 02/21/17 22:00 88 02/21/17 20:00 87 02/21/17 20:00 98.4 87 18 133/62 99 02/21/17 19:57 99 Nasal Cannula 2.00 02/21/17 18:00 80 02/21/17 17:00 124/59 02/21/17 16:00 91 02/21/17 16:00 99.1 88 18 98 02/21/17 14:00 98 I/O 02/21/17 02/21/17 02/21/17 02/22/17 02/22/17 02/22/17 07:00 15:00 23:00 07:00 15:00 23:00 Intake Total 507 ml 0 ml 3009 ml Output Total 1100 ml 1300 ml 445 ml Balance -593 ml -1300 ml 2564 ml Intake Oral 0 ml 960 ml IV Total 507 ml 2049 ml Output Urine Total 1100 ml 1300 ml 445 ml Bladder Scan Volume Amount 447 ml # Bowel Movements 0 0 0 Result Diagram: 02/21/17 0348 02/22/17 0431 Imaging Last Impressions Barium Swallow X-Ray 02/21/17 0000 Signed Impressions: Service Date/Time: Tuesday, February 21, 2017 14:12 - CONCLUSION: No evidence of ulceration, mass effect or stricture. Esophageal dysmotility was identified within the lower two thirds of the esophagus at the termination of the exam which ultimately cleared without evidence of aspiration.. Debbie Haynes MD Chest X-Ray 02/20/17 0000 Signed Impressions: Service Date/Time: Monday, February 20, 2017 22:24 - CONCLUSION: Stable chest appearance Otis Pereyra MD Shoulder X-Ray 02/19/17 0000 Signed Impressions: Service Date/Time: January 19:20 - CONCLUSION: 1. Mild osteoarthritis of the right shoulder. No acute bony abnormalities. Giorgio Maldonado MD Objective Remarks GENERAL: Thin chronically ill appearing elderly male in some distress 2/2 nausea. SKIN: Warm and dry. No rash. HEAD: Normocephalic. Atraumatic. EYES: Pupils equal and round. No scleral icterus. No injection or drainage. ENT: No nasal bleeding or discharge. Mucous membranes pink and moist. NECK: Supple. Trachea midline. CARDIOVASCULAR: Regular rate and rhythm. S1, S2 noted. No murmur appreciated. RESPIRATORY: No accessory muscle use. Breath sounds diminished at bilateral bases with some faint expiratory wheezing. Breath sounds equal bilaterally. GASTROINTESTINAL: Abdomen soft, mild tenderness epigastric area, nondistended. Normoactive bowel sounds x4. MUSCULOSKELETAL: No obvious deformities. Extremities without clubbing, cyanosis , or edema. NEUROLOGICAL: Awake and alert. No obvious cranial nerve deficits. Motor grossly within normal limits. Generalized weakness. Normal speech. PSYCHIATRIC: Anxious mood; insight and judgment normal. 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 Casas who presents to the emergency room complaining of inability to eat or drink with failure to thrive. He is to be evaluated for PEG tube placement Dysphagia/odynophagia Nausea Constipation - NPO - ST for swallowing evaluation - GI consulted,s/p Barium Swallow - Patient presented for PEG placement - Appreciate GI recommendations - Patient also with nausea and slight abd pain. - Antiemetics as need - Laxatives/stool softeners scheduled and as need. Failure to Thrive - consult palliative care for assistance with clarifying goals of treatment, appreciate assistance - Consult gastroenterology for PEG tube placement, barium swallow as above - Albumin 2.2 Dyspnea with hypoxia requiring venti mask 01/23 2/2 COPD exacerbation. Resolving , currently satting well on NC. Patient also gets extremely anxious and claustrophobic, likely contributing to symptoms, however does now has slight wheezing on exam. Repeat CXR ordered which actually showed improvement compared to previous study. Continue duonebs, IV Solumedrol, continue to taper Continue Xanax prn, IV morphine prn. Repeat Troponin/EKG at baseline, noncardiac , BNP normal. Continue to monitor. Urinary retention: Place silva. Type 2 DM - Glucose 144 on admission; patient unable to eat or drink - Accuchecks ac and hs; notify MD if BG < 70 or > 300 - Low dose SSI - Started insulin detemir 15 U BID home med as BSin 400s. Also noted elevated AG of 20. Repeat labs AG closed. Restart home long acting insulin. Monitor BS Patient is NPO now and poss aspirated. On IV abx . 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 Casas. - NPO - Monitor vital signs q4h Anemia - Hgb 11.4 stable compared with recent hospitalizations in December and January - Monitor CBC History of CHF - monitor I and Os qshift - cautious use of IVFs if needed - Troponin I is less than 0.02 on admission Chronic Pain & Anxiety - continue patient's home morphine IR 15mg q6h prn - IV morphine prn while NPO - continue patient's Klonopin UTI - Urine culture preliminary with gram negative rods - Start IV Rocephin - monitor for final culture DVT prophylaxis- Lovenox 40 mg subq q24h Discussed with the nurse, patient. Problem Qualifiers (1) Anemia: Qualified Code: D64.9 - Anemia, unspecified type (2) Type 2 diabetes mellitus: Shannon Myers MD Feb 22, 2017 13:48
[2017-02-22] MEDS ORDERED: LACTULOSE SYRUP 20 GM/30 ML CUP PO PRN (14:00)
[2017-02-22] MEDS ORDERED: DOCUSATE SODIUM 50 MG/SENNA 8.6 MG TAB PO PRN (14:00)
[2017-02-22] MEDS ORDERED: BISACODYL EC 5 MG TABEC PO PRN (14:00)
[2017-02-22] MEDS ORDERED: MAGNESIUM HYDROXIDE SUSP 30 ML CUP PO PRN (14:00)
[2017-02-22 17:08] LABS: BACTERIA, URINE MANY /hpf; BLOOD, URINE MOD (NEG); GLUCOSE,URINE NEG (NEG); KETONE, URINE NEG (NEG); NITRITE,URINE NEG (NEG); PH, URINE 5.5 (5.0-8.5); SQUAMOUS EPITHELIAL CELL URINE 3 /hpf (0-5); URINE COLOR YELLOW (YELLW/STRAW)
[2017-02-22 17:09] LABS: COMMENT (UR) CATH-CULTURE IND; CULTURE IF INDICATED CATH CULTURE IND
[2017-02-22] MEDS: DOCUSATE SODIUM 50 MG/SENNA 8.6 MG TAB PO SCH (20:53)
[2017-02-23] VITALS (13 sets, daily range): BP systolic 113–144; BP diastolic 47–80; PULSE 80–86; RESP 13–23; TEMP 98–98.7; O2SAT 93–97
[2017-02-23] MEDS: MORPHINE SULFATE 4 MG/ML INJ IV PUSH PRN ×5 (01:52→21:04)
[2017-02-23] MEDS: SODIUM CHLOR 0.9% 1000 ML INJ 1,000 ML IV SCH ×3 (02:00→21:02)
[2017-02-23] MEDS: CHLORHEXIDINE GLUCONATE 2 % 1 PACK (2 CLOTHS)(taper/protocol) TOP SCH ×2 (04:00→21:04)
[2017-02-23] MEDS: INSULIN ASPART SUPPLEMENTAL SCALE SQ SCH ×6 (04:00→23:38)
[2017-02-23] MEDS: LORazepam 2 MG/ML VIAL IV PUSH PRN ×3 (04:33→23:38)
[2017-02-23] MEDS: PIPERACIL-TAZO 4.5 GM PREMIX 100 ML IV SCH ×4 (05:39→23:38)
[2017-02-23] MEDS: methylPREDNISolone SOD SUCC 40 MG/1 ML VIAL IV PUSH SCH ×4 (05:40→23:38)
--- NOTE | 2017-02-23 06:41 | HHI.PR ---
Subjective Remarks Patient in nad. Feels improved. Says he is thirsty and is asking for water and juice, family at bedside. I did explained to the patient again he has dysphagia and poss aspiration PNA, plan for EGD with poss dial today. Patient expressed understanding, seems with poor judgement. Family at bedside as well reinforcing. Patient otherwise says sob is better, no much wheezing, less cough. No sputum production. Still with nausea. Did not have a BM yet. No vomiting. Objective Vitals Vital Signs Date Time Temp Pulse Resp B/P Pulse Ox O2 Delivery O2 Flow Rate FiO2 02/23/17 06:00 84 02/23/17 04:41 16 02/23/17 04:00 82 02/23/17 04:00 98.7 82 23 132/68 96 02/23/17 02:00 84 02/23/17 00:00 86 02/23/17 00:00 98.4 86 20 113/62 93 02/22/17 22:00 91 02/22/17 20:00 87 02/22/17 20:00 98.3 87 20 124/91 97 02/22/17 19:44 95 Nasal Cannula 2.00 02/22/17 07:40 94 Nasal Cannula 2.00 I/O 02/22/17 02/22/17 02/22/17 02/23/17 02/23/17 02/23/17 06:59 14:59 22:59 06:59 14:59 22:59 Intake Total 3009 ml 1891 ml 111 ml Output Total 445 ml 265 ml 170 ml Balance 2564 ml 1626 ml -59 ml Intake Oral 960 ml 480 ml IV Total 2049 ml 1411 ml 111 ml Output Urine Total 445 ml 265 ml 170 ml Bladder Scan Volume Amount 447 ml # Bowel Movements 0 0 0 Result Diagram: 02/21/17 0348 02/22/17 0431 Imaging Last Impressions Barium Swallow X-Ray 02/21/17 0000 Signed Impressions: Service Date/Time: Tuesday, February 21, 2017 14:12 - CONCLUSION: No evidence of ulceration, mass effect or stricture. Esophageal dysmotility was identified within the lower two thirds of the esophagus at the termination of the exam which ultimately cleared without evidence of aspiration.. Debbie Haynes MD Chest X-Ray 02/20/17 0000 Signed Impressions: Service Date/Time: Monday, February 20, 2017 22:24 - CONCLUSION: Stable chest appearance Otis Pereyra MD Shoulder X-Ray 02/19/17 0000 Signed Impressions: Service Date/Time: January 19:20 - CONCLUSION: 1. Mild osteoarthritis of the right shoulder. No acute bony abnormalities. Giorgio Maldonado MD Objective Remarks GENERAL: Thin chronically ill appearing elderly male in some distress 2/2 nausea. SKIN: Warm and dry. No rash. HEAD: Normocephalic. Atraumatic. EYES: Pupils equal and round. No scleral icterus. No injection or drainage. ENT: No nasal bleeding or discharge. Mucous membranes pink and moist. NECK: Supple. Trachea midline. CARDIOVASCULAR: Regular rate and rhythm. S1, S2 noted. No murmur appreciated. RESPIRATORY: No accessory muscle use. Breath sounds diminished at bilateral bases with some faint expiratory wheezing. Breath sounds equal bilaterally. GASTROINTESTINAL: Abdomen soft, mild tenderness epigastric area, nondistended. Normoactive bowel sounds x4. MUSCULOSKELETAL: No obvious deformities. Extremities without clubbing, cyanosis , or edema. NEUROLOGICAL: Awake and alert. No obvious cranial nerve deficits. Motor grossly within normal limits. Generalized weakness. Normal speech. PSYCHIATRIC: Anxious mood; insight and judgment normal. 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 Casas who presents to the emergency room complaining of inability to eat or drink with failure to thrive. He is to be evaluated for PEG tube placement Dysphagia/odynophagia Nausea Constipation - NPO - ST for swallowing evaluation - GI consulted,s/p Barium Swallow - Patient presented for PEG placement -Plam fro EGD with or w/o dilation 3/27/17 - Appreciate GI recommendations - Patient also with nausea and slight abd pain. - Antiemetics as need - Laxatives/stool softeners scheduled and as need. 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 muscle waisting - consult palliative care for assistance with clarifying goals of treatment, appreciate assistance - Consult gastroenterology for eval of PEG tube placement, s/p barium swallow as above, plan for EGD w or w/o dilation 02/23 - Albumin 2.2 Acute on chronic respiratory failure, Dyspnea with hypoxia requiring venti mask 01/23 2/2 COPD exacerbation. Resolving, currently satting well on NC. Patient also gets extremely anxious and claustrophobic, likely contributing to symptoms, however does now has slight wheezing on exam. Repeat CXR ordered which actually showed improvement compared to previous study. Continue duonebs, IV Solumedrol, continue to taper Continue Xanax prn, IV morphine prn. Repeat Troponin/EKG at baseline, noncardiac , BNP normal. Continue to monitor. Continue IV abx for poss aspiration PNA Sputum cx pending, blood cx pending Urinary ag pneumoc/legionella pending Urinary retention: Place silva. Type 2 DM NA - Glucose 144 on admission; patient unable to eat or drink - Accuchecks ac and hs; notify MD if BG < 70 or > 300 - Low dose SSI - Started insulin detemir 15 U BID home med as BSin 400s. Also noted elevated AG of 20. Repeat labs AG closed. Restart home long acting insulin. Monitor BS Patient is NPO now and poss aspirated. On IV abx . 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 Casas. - NPO - Monitor vital signs q4h Anemia - Hgb 11.4 stable compared with recent hospitalizations in December and January - Monitor CBC History of CHF - monitor I and Os qshift - cautious use of IVFs if needed - Troponin I is less than 0.02 on admission Chronic Pain & Anxiety - continue patient's home morphine IR 15mg q6h prn - IV morphine prn while NPO - continue patient's Klonopin UTI - Urine culture preliminary with gram negative rods - Start IV Rocephin - monitor for final culture DVT prophylaxis- Lovenox 40 mg subq q24h Discussed with the nurse, patient, family at bedside. Problem Qualifiers (1) Anemia: Qualified Code: D64.9 - Anemia, unspecified type (2) Type 2 diabetes mellitus: Shannon Myers MD Feb 23, 2017 06:41
[2017-02-23 07:29] LABS: BICARBONATE 30.3 MEQ/L (21.0-32.0); POTASSIUM 3.6 MEQ/L (3.5-5.1)
[2017-02-23] MEDS: RESP: ALBUTEROL 2.5 MG/IPRATROPIUM 0.5 MG NEB (SCH) NEB ×4 (07:47→19:40)
[2017-02-23] MEDS: FUROSEMIDE 20 MG/2 ML VIAL IV PUSH SCH (08:18)
[2017-02-23] MEDS: SODIUM CHLORIDE 0.9% FLUSH 10 ML FLUSH IV FLUSH SCH ×2 (08:19→21:00)
[2017-02-23] MEDS: DOCUSATE SODIUM 50 MG/SENNA 8.6 MG TAB PO SCH ×2 (08:19→21:00)
[2017-02-23] MEDS: INSULIN DETEMIR 100 UNITS/ML VIAL SQ SCH ×2 (09:00→21:00)
[2017-02-23] MEDS: TIOTROPIUM BROMIDE 18 MCG INH INH SCH (09:00)
[2017-02-23] MEDS ORDERED: PROPOFOL 200 MG/20 ML AMP IV ONE (12:00)
[2017-02-23] MEDS: fentaNYL 50 MCG/HR PATCH TD SCH (12:20)
[2017-02-23] MEDS: REMOVE OLD DURAGESIC (FENTANYL) PATCH TD SCH (12:21)
[2017-02-23] MEDS ORDERED: DO NOT ADM ANY ANTICOAGULANT DRUGS XX PRN (14:50)
--- NOTE | 2017-02-23 14:50 | GIPROC ---
[facility] [address] [facility]. [facility], [id number] EGD WITH PEG PROCEDURE REPORT EXAM DATE: 02/23/2017 PATIENT NAME: Curtis Santana MR#: [id number] BIRTHDATE: 1940 ATTENDING: Seng Tapia MD ORDER #: [id number] ROSTER CLERK: Tremaine Yo and Kel Quigley STATUS: inpatient INDICATIONS: The patient is a 76 yr old male here for an EGD with PEG due to dysphagia PROCEDURE PERFORMED: EGD with PEG placement MEDICATIONS: Per Anesthesia and None. TOPICAL ANESTHETIC: CONSENT: The patient understands the risks and benefits of the procedure and understands that these risks include, but are not limited to: sedation, allergic reaction, infection, perforation and/or bleeding. Alternative means of evaluation and treatment include, among others: physical exam, x-rays, and/or surgical intervention. The patient elects to proceed with this endoscopic procedure. medical equipment was checked for proper function. Hand hygiene and appropriate measures for infection prevention was taken. After the risks, benefits and alternatives of the procedure were thoroughly explained, Informed consent was verified, confirmed and timeout was successfully executed by the treatment team. The patient was anesthetized with topical anesthesia and the Pentax [id number] endoscope was introduced through the mouth and advanced to the second portion of the duodenum. The instrument was slowly withdrawn as the mucosa was fully examined. Esophagitis was found in the total esophagus. kaylan The stomach was entered and closely examined. The antrum, angularis, and lesser curvature were well visualized, including a retroflexed view of the cardia and fundus. The stomach wall was normally distensable. The scope passed easily through the pylorus into the duodenum. in the total stomach. 20 fr Percutaneous endoscopic gastrostomy tube was placed using standard technique. The stomach was then inflated with air, and by a combination of transillumination and manual palpation, the site for the gastrostomy tube placement was selected and marked on the anterior abdominal wall. The skin of the anterior abdomen was surgically prepped and draped with sterile towels. Utilizing strict sterile technique, the selected site was then anesthetized with 1% xylocaine by injection into the skin and subcutaneous tissue. A 1 cm incision was made through the skin and subcutaneous tissue, and the needle/cannula assembly was then passed through the abdominal wall and through the anterior wall of the stomach, maintaining visualization with the endoscope. A snare device previously placed through the instrument channel was then opened and placed around the cannula, the needle was removed, and the insertion wire was passed through the cannula and into the stomach lumen. The snare was then loosened from the cannula, and repositioned to snare the insertion wire. The snare was then pulled up to the endoscope distal tip, and the scope was then withdrawn bringing with it the snare and insertion wire. The insertion wire was then released from the snare, and then loop-attached to the gastrostomy tube. Using the "pull technique", the G-tube was then pulled into place by traction on the insertion wire at the abdominal wall end. The G-tube insertion site was then cleansed once again, and the external bolster was placed over the tube to secure it to the abdominal wall. A sterile dressing was then applied, and the procedure terminated. no abnormalities The gastroscope was then slowly withdrawn and removed. ADVERSE EVENT: There were no complications. IMPRESSIONS: 1. Esophagitis was found in the total esophagus 2. 20 fr The stomach was entered and closely examined. The antrum, angularis, and lesser curvature were well visualized, including a retroflexed view of the cardia and fundus. The stomach wall was normally distensable. The scope passed easily through the pylorus into the duodenum. in the total stomach 3. No abnormalities RECOMMENDATIONS: PEG recomendations: 1- NPO for 6 hours except for meds 2- Flush PEG tube every 6 hours with water and after each PEG feeding 3- May resume regular diet in the morning 4- May use Ensure or Boost etc. for PEG tube feeding REPEAT EXAM: Seng Tapia MD eSigned: Seng Tapia MD 02/23/2017 2:49 PM cc: PATIENT NAME: Curtis Santana MR#: [id number]
[2017-02-23] MEDS: RESP: ALBUTEROL 2.5 MG/IPRATROPIUM 0.5 MG NEB (PRN) NEB (16:03)
[2017-02-23] MEDS: AZITHROMYCIN INJ 500 MG in SODIUM CHLOR 0.9% 250 ML INJ 250 ML IV SCH (21:02)
[2017-02-24] VITALS (14 sets, daily range): BP systolic 134–178; BP diastolic 64–78; PULSE 77–86; RESP 14–20; TEMP 98–98.9; O2SAT 94–97
[2017-02-24] MEDS: MORPHINE SULFATE 4 MG/ML INJ IV PUSH PRN ×5 (00:39→23:46)
[2017-02-24] MEDS: ONDANSETRON HCL 4 MG/2 ML VIAL IVP PRN ×3 (03:06→23:46)
[2017-02-24] MEDS: INSULIN ASPART SUPPLEMENTAL SCALE SQ SCH ×6 (03:33→23:45)
[2017-02-24] MEDS: methylPREDNISolone SOD SUCC 40 MG/1 ML VIAL IV PUSH SCH ×4 (04:18→23:45)
[2017-02-24] MEDS: PIPERACIL-TAZO 4.5 GM PREMIX 100 ML IV SCH ×4 (04:18→23:45)
[2017-02-24] MEDS: LORazepam 2 MG/ML VIAL IV PUSH PRN ×2 (05:38→18:38)
[2017-02-24] MEDS: RESP: ALBUTEROL 2.5 MG/IPRATROPIUM 0.5 MG NEB (SCH) NEB ×4 (08:30→19:32)
[2017-02-24] MEDS: TIOTROPIUM BROMIDE 18 MCG INH INH SCH (08:55)
[2017-02-24] MEDS: FUROSEMIDE 20 MG/2 ML VIAL IV PUSH SCH (08:56)
[2017-02-24] MEDS: INSULIN DETEMIR 100 UNITS/ML VIAL SQ SCH ×2 (08:56→21:00)
[2017-02-24] MEDS: FLUCONAZOLE 100 MG TAB PO SCH (08:56)
[2017-02-24] MEDS: DOCUSATE SODIUM 50 MG/SENNA 8.6 MG TAB PO SCH ×2 (08:56→21:42)
[2017-02-24] MEDS: SODIUM CHLOR 0.9% 1000 ML INJ 1,000 ML IV SCH ×2 (08:57→17:33)
[2017-02-24] MEDS: SODIUM CHLORIDE 0.9% FLUSH 10 ML FLUSH IV FLUSH SCH ×2 (09:00→21:00)
--- NOTE | 2017-02-24 10:11 | HHI.GIFU ---
Subjective Remarks Resting in bed. No distress. Denies n/v. Denies abdominal pain. (Isabella Burgess) Objective Vitals I&O Vital Signs Date Time Temp Pulse Resp B/P Pulse Ox O2 Delivery O2 Flow Rate FiO2 02/24/17 08:31 94 Nasal Cannula 2.00 02/24/17 06:00 77 02/24/17 04:00 78 02/24/17 04:00 98.5 78 15 148/70 95 02/24/17 02:00 80 02/24/17 00:00 85 02/24/17 00:00 98.0 85 14 138/72 94 02/23/17 22:00 85 02/23/17 20:00 80 02/23/17 20:00 98.4 80 14 144/67 95 02/23/17 19:40 95 Nasal Cannula 2.00 02/23/17 18:00 84 02/23/17 17:48 85 13 138/47 96 02/23/17 15:40 98.2 84 14 136/72 95 Nasal Cannula 2 02/23/17 15:30 84 14 135/73 95 Nasal Cannula 2 02/23/17 15:15 86 14 134/72 97 Nasal Cannula 2 02/23/17 15:00 83 14 140/78 97 Nasal Cannula 2 02/23/17 14:53 98.4 84 12 144/84 97 Nasal Cannula 2 02/23/17 12:00 98.0 86 18 124/80 94 I/O 02/23/17 02/23/17 02/23/17 02/24/17 02/24/17 02/24/17 07:00 15:00 23:00 07:00 15:00 23:00 Intake Total 111 ml 600 ml 688 ml 766 ml Output Total 170 ml 850 ml 1200 ml 350 ml Balance -59 ml -250 ml -512 ml 416 ml Intake Oral 0 ml 0 ml IV Total 111 ml 450 ml 688 ml 766 ml Other 150 ml Output Urine Total 170 ml 850 ml 1200 ml 350 ml # Voids 1 # Bowel Movements 0 0 Laboratory Date/Time Procedure Status Source Growth 02/22/17 13:45 Urine Culture - Preliminary Resulted Urine Catheterized Urine Gram Negative [place] 02/22/17 13:45 Legionella Antigen - Final Complete Urine Random Urine PRESUMPTIVE NEGATIVE FOR LEGIONELLA P... 02/22/17 13:45 Streptococcus pneumoniae Antigen (M - Final Complete Urine Random Urine PRESUMPTIVE NEGATIVE FOR STREPTOCOCCU... 02/19/17 19:28 Urine Culture - Final Complete Urine Catheterized Urine Enterobacter Cloacae Pseudomonas Aeruginosa 02/19/17 19:28 Influenza Types A,B Antigen (DHARMESH) - Final Complete Nasal Washing NEGATIVE FOR FLU A AND B ANTIGEN.... 02/19/17 18:50 Aerobic Blood Culture - Preliminary Resulted Blood Peripheral NO GROWTH IN 4 DAYS 02/19/17 18:50 Anaerobic Blood Culture - Preliminary Resulted Blood Peripheral NO GROWTH IN 4 DAYS Imaging Last Impressions Barium Swallow X-Ray 02/21/17 0000 Signed Impressions: Service Date/Time: Tuesday, February 21, 2017 14:12 - CONCLUSION: No evidence of ulceration, mass effect or stricture. Esophageal dysmotility was identified within the lower two thirds of the esophagus at the termination of the exam which ultimately cleared without evidence of aspiration.. Debbie Haynes MD Chest X-Ray 02/20/17 0000 Signed Impressions: Service Date/Time: Monday, February 20, 2017 22:24 - CONCLUSION: Stable chest appearance Otis Pereyra MD Shoulder X-Ray 02/19/17 0000 Signed Impressions: Service Date/Time: January 19:20 - CONCLUSION: 1. Mild osteoarthritis of the right shoulder. No acute bony abnormalities. Giorgio Maldonado MD Physical Exam HEENT: Normocephalic; atraumatic; no jaundice. CHEST: Diminished CARDIAC: Regular ABDOMEN: +BS, soft, mildly bloated, nontender. EXTREMITIES: No clubbing, cyanosis, or edema. SKIN: Normal; no rash; no jaundice. CARDIOGRAPHER: No focal deficits; alert and oriented times three. (Isabella Burgess) Assessment and Plan Plan ASSESSMENT: - FEN, Dysphagia, Wt. Loss. 3 month hx of decreased appetite, difficulty with solids getting caught in upper esophagus, and a 24 lb weight loss. He is on Marinol at the rehab center. He does have a known epiglottis mass which is thought to be contributing to his solids getting caught. GI consulted for peg. Ideally, he should have a G/J tube with his hx of gastroparesis, as he would more likely tolerate his feedings. He last received Xarelto at the custodial on 02/19 and is on Lovenox. Barium Swallow (02/21) -->No evidence of ulceration, mass effect or stricture. Esophageal dysmotility was identified within the lower two thirds of the esophagus at the termination of the exam which ultimately cleared without evidence of aspiration. S/P EGD with PEG tube placement. (02/23/17)--- ---> 1. Esophagitis was found in the total esophagus 2. 20 fr The stomach was entered and closely examined. The antrum, angularis, and lesser curvature were well visualized, including a retroflexed view of the cardia and fundus. The stomach wall was normally distensable. The scope passed easily through the pylorus into the duodenum. in the total stomach 3. No abnormalities. ST following, recommends puree with honey thickened liquids. PPI - Gastroparesis. Currently not having nausea/vomiting. - GERD. PPI - Atrial fibrillation. Xarelto at home, last had 02/19 at custodial. - Recent diagnosis of Stage I squamous cell carcinoma of the laryngeal surface fo the epiglottis 01/27/17. He was seen by Dr. Casas, who was preparing him for radiation. This is currently on hold because the ME wanted to transfer his care to the [facility] and because of his deconditioned state. - COPD, Hypothyroidism, DM, Arthritis, Depression/Anxiety, CHF per primary PLAN: - Glucerna 1.5 at 30cc/hr, increase to GR of 65cc/hr - Puree diet with honey thickened liquids- Heart healthy/Diabetic diet. Okay to advance per ST recommendations - Flush PEG tube every 6 hours with water and after each PEG feeding - PPI - Antiemetics PRN - Cont. ST - Supportive care - Further recommendations as the case develops - Pt seen and examined by Dr. Robert and myself and this note is written on her behalf (Isabella Burgess) Physician Comments Patient seen and examined Agree with above Continue with current supportive care Monitor labs I saw the patient with Isabella LEAL Not much to add at this point from a GI perspective we will sign off (Seng Tapia MD) Isabella Burgess Feb 24, 2017 10:10 Seng Tapia MD Feb 24, 2017 21:44
[2017-02-24] MEDS ORDERED: PROPOFOL 200 MG/20 ML AMP IV ONE (14:34)
--- NOTE | 2017-02-24 16:30 | HHI.PR ---
Subjective Remarks Late entry: The patient was seen early today. Family at bedside. Was noted confused in the morning by the family. Patient denies chest pain. SOB improved, less wheezing. No fever or chills. Complains or some epigastric pain, less nausea, did not vomit. No diarrhea. Says he wants to eat and drink juice. Nurse will do bedside eval. Also ST will evaluate the patient .Can start tube feedings per dietary recommendations. Objective Vitals Vital Signs Date Time Temp Pulse Resp B/P Pulse Ox O2 Delivery O2 Flow Rate FiO2 02/24/17 14:00 80 02/24/17 12:00 98.1 80 15 147/70 97 02/24/17 12:00 80 02/24/17 10:00 80 02/24/17 08:31 94 Nasal Cannula 2.00 02/24/17 08:00 80 02/24/17 08:00 98.2 79 20 178/78 97 02/24/17 06:00 77 02/24/17 04:00 78 02/24/17 04:00 98.5 78 15 148/70 95 02/24/17 02:00 80 02/24/17 00:00 85 02/24/17 00:00 98.0 85 14 138/72 94 02/23/17 22:00 85 02/23/17 20:00 80 02/23/17 20:00 98.4 80 14 144/67 95 02/23/17 19:40 95 Nasal Cannula 2.00 02/23/17 18:00 84 02/23/17 17:48 85 13 138/47 96 I/O 02/23/17 02/23/17 02/23/17 02/24/17 02/24/17 02/24/17 07:00 15:00 23:00 07:00 15:00 23:00 Intake Total 111 ml 600 ml 688 ml 766 ml 1599 ml Output Total 170 ml 850 ml 1200 ml 350 ml 1925 ml Balance -59 ml -250 ml -512 ml 416 ml -326 ml Intake Oral 0 ml 0 ml 444 ml IV Total 111 ml 450 ml 688 ml 766 ml 1000 ml Tube Feeding 35 ml Other 150 ml 120 ml Output Urine Total 170 ml 850 ml 1200 ml 350 ml 1925 ml Stool Total 0 ml # Voids 1 # Bowel Movements 0 0 0 Result Diagram: 02/21/17 0348 02/23/17 0619 Imaging Last Impressions Barium Swallow X-Ray 02/21/17 0000 Signed Impressions: Service Date/Time: Tuesday, February 21, 2017 14:12 - CONCLUSION: No evidence of ulceration, mass effect or stricture. Esophageal dysmotility was identified within the lower two thirds of the esophagus at the termination of the exam which ultimately cleared without evidence of aspiration.. Debbie Haynes MD Chest X-Ray 02/20/17 0000 Signed Impressions: Service Date/Time: Monday, February 20, 2017 22:24 - CONCLUSION: Stable chest appearance Otis Pereyra MD Shoulder X-Ray 02/19/17 0000 Signed Impressions: Service Date/Time: January 19:20 - CONCLUSION: 1. Mild osteoarthritis of the right shoulder. No acute bony abnormalities. Giorgio Maldonado MD Objective Remarks GENERAL: Thin chronically ill appearing elderly male in some distress 2/2 nausea. SKIN: Warm and dry. No rash. HEAD: Normocephalic. Atraumatic. EYES: Pupils equal and round. No scleral icterus. No injection or drainage. ENT: No nasal bleeding or discharge. Mucous membranes pink and moist. NECK: Supple. Trachea midline. CARDIOVASCULAR: Regular rate and rhythm. S1, S2 noted. No murmur appreciated. RESPIRATORY: No accessory muscle use. Breath sounds diminished at bilateral bases with some faint expiratory wheezing. Breath sounds equal bilaterally. GASTROINTESTINAL: Abdomen soft, mild tenderness epigastric area, nondistended. Normoactive bowel sounds x4. MUSCULOSKELETAL: No obvious deformities. Extremities without clubbing, cyanosis , or edema. NEUROLOGICAL: Awake and alert. No obvious cranial nerve deficits. Motor grossly within normal limits. Generalized weakness. Normal speech. PSYCHIATRIC: Anxious mood; insight and judgment normal. 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 Casas who presents to the emergency room complaining of inability to eat or drink with failure to thrive. He is to be evaluated for PEG tube placement Dysphagia/odynophagia Nausea Constipation - NPO, advance diet as tolerated when passes swallow evaluation - ST for swallowing evaluation - GI consulted,s/p Barium Swallow - Patient presented for PEG placement - S/P EGD/PEG 02/23/17 - Start feeding tube per dietary recommendations. - Appreciate GI recommendations - Antiemetics as need - Laxatives/stool softeners scheduled and as need. 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 muscle waisting - consult palliative care for assistance with clarifying goals of treatment, appreciate assistance - Consult gastroenterology for eval of PEG tube placement, s/p barium swallow as above, plan for EGD w or w/o dilation 02/23 - Albumin 2.2 Acute on chronic respiratory failure, Dyspnea with hypoxia requiring venti mask 01/23 2/2 COPD exacerbation. Resolving, currently satting well on NC. Patient also gets extremely anxious and claustrophobic, likely contributing to symptoms, however does now has slight wheezing on exam. Repeat CXR ordered which actually showed improvement compared to previous study. Continue duonebs, IV Solumedrol, continue to taper Continue Xanax prn, IV morphine prn. Repeat Troponin/EKG at baseline, noncardiac , BNP normal. Continue to monitor. Continue IV abx for poss aspiration PNA Sputum cx pending, blood cx pending Urinary ag pneumoc/legionella pending Urinary retention: Place silva. Type 2 DM NA - Glucose 144 on admission; patient unable to eat or drink - Accuchecks ac and hs; notify MD if BG < 70 or > 300 - Low dose SSI - Started insulin detemir 15 U BID home med as BSin 400s. Also noted elevated AG of 20. Repeat labs AG closed. Restart home long acting insulin. Monitor BS Patient is NPO now and poss aspirated. On IV abx . 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 Casas. - NPO - Monitor vital signs q4h Anemia - Hgb 11.4 stable compared with recent hospitalizations in December and January - Monitor CBC History of CHF - monitor I and Os qshift - cautious use of IVFs if needed - Troponin I is less than 0.02 on admission Chronic Pain & Anxiety - continue patient's home morphine IR 15mg q6h prn - IV morphine prn while NPO - continue patient's Klonopin UTI - Urine culture preliminary with gram negative rods - Start IV Rocephin - monitor for final culture DVT prophylaxis- Lovenox 40 mg subq q24h Discussed with the nurse, patient, family at bedside. Problem Qualifiers (1) Anemia: Qualified Code: D64.9 - Anemia, unspecified type (2) Type 2 diabetes mellitus: Shannon Myers MD Feb 24, 2017 16:30
[2017-02-24] MEDS: AZITHROMYCIN INJ 500 MG in SODIUM CHLOR 0.9% 250 ML INJ 250 ML IV SCH (21:41)
[2017-02-25] VITALS (12 sets, daily range): BP systolic 131–156; BP diastolic 59–78; PULSE 76–86; RESP 15–20; TEMP 97.9–98.9; O2SAT 95–98
[2017-02-25] MEDS: LORazepam 2 MG/ML VIAL IV PUSH PRN ×2 (01:30→11:39)
[2017-02-25] MEDS: SODIUM CHLOR 0.9% 1000 ML INJ 1,000 ML IV SCH ×3 (03:26→21:26)
[2017-02-25] MEDS: CHLORHEXIDINE GLUCONATE 2 % 1 PACK (2 CLOTHS)(taper/protocol) TOP SCH (03:26)
[2017-02-25] MEDS: INSULIN ASPART SUPPLEMENTAL SCALE SQ SCH ×5 (03:29→21:15)
[2017-02-25] MEDS: methylPREDNISolone SOD SUCC 40 MG/1 ML VIAL IV PUSH SCH ×3 (05:13→17:23)
[2017-02-25] MEDS: PIPERACIL-TAZO 4.5 GM PREMIX 100 ML IV SCH ×3 (05:14→17:23)
[2017-02-25 05:28] LABS: BICARBONATE 29.8 MEQ/L (21.0-32.0); MAGNESIUM 1.9 MG/DL (1.5-2.5); POTASSIUM 3.4 MEQ/L (3.5-5.1)
[2017-02-25 06:26] LABS: AUTOMATED NEUTROPHIL # 8.7 TH/MM3 (1.8-7.7); BASOPHIL % 0.2 % (0.0-2.0); HEMATOCRIT 34.1 % (39.0-51.0); LYMPHOCYTE # 0.2 TH/MM3 (1.0-4.8); MEAN CORPUSCULAR HEMOGLOBIN 27.6 PG (27.0-34.0); MEAN CORPUSCULAR HGB CONC 32.1 % (32.0-36.0); MONO % 4.9 % (0.0-8.0); NEUT % 92.9 % (16.0-70.0); PLATELET COUNT 207 TH/MM3 (150-450); RED BLOOD COUNT 3.97 MIL/MM3 (4.50-5.90); RED CELL DISTRIBUTION WIDTH 18.3 % (11.6-17.2); WHITE BLOOD COUNT 9.3 TH/MM3 (4.0-11.0)
[2017-02-25 06:29] LABS: HEMO FLAGS AUTO DIFF
[2017-02-25] MEDS: POTASSIUM CHLOR 20 MEQ PREMIX 100 ML IV PRN ×2 (06:57→08:36)
[2017-02-25 07:33] LABS: BANDS 5 % (0-6); NEUTROPHIL # MANUAL DIFF 8.6 TH/MM3 (1.8-7.7); POLYS (SEG NEUTROPHILS) 87 % (16-70); WBC DIFF SAMPLE 100
[2017-02-25 07:34] LABS: ACANTHOCYTES 2+ (NORMAL); PLATELET ESTIMATE SMEAR NORMAL (NORMAL)
[2017-02-25 07:35] LABS: KERATOCYTES OCC (NORMAL); OVALOCYTES 1+ (NORMAL)
[2017-02-25 07:36] LABS: PLATELET MORPHOLOGY CLUMPED (NORMAL); SCAN/DIFF FINAL DIFF MANUAL
--- NOTE | 2017-02-25 07:38 | HHI.PR ---
Subjective Remarks Patient in nad. Denies chest pain. Says he has less sob and wheezing. Feels very tired. Still with nausea. Did not voit. Did not have a BM yet. No appetite. Objective Vitals Vital Signs Date Time Temp Pulse Resp B/P Pulse Ox O2 Delivery O2 Flow Rate FiO2 02/25/17 06:00 78 02/25/17 04:00 98.3 77 18 134/63 97 02/25/17 04:00 77 02/25/17 02:00 80 02/25/17 00:00 98.5 81 15 131/59 95 02/25/17 00:00 81 02/24/17 22:00 81 02/24/17 20:00 83 02/24/17 20:00 98.9 84 15 140/64 95 02/24/17 19:30 97 Nasal Cannula 3.00 02/24/17 18:00 86 02/24/17 16:00 77 02/24/17 16:00 98.8 77 14 134/64 96 02/24/17 14:00 80 02/24/17 12:00 98.1 80 15 147/70 97 02/24/17 12:00 80 02/24/17 10:00 80 02/24/17 08:31 94 Nasal Cannula 2.00 02/24/17 08:00 80 02/24/17 08:00 98.2 79 20 178/78 97 I/O 02/24/17 02/24/17 02/24/17 02/25/17 02/25/17 02/25/17 07:00 15:00 23:00 07:00 15:00 23:00 Intake Total 766 ml 1599 ml 1175 ml 1876 ml Output Total 350 ml 1925 ml 500 ml 550 ml Balance 416 ml -326 ml 675 ml 1326 ml Intake Oral 444 ml 550 ml IV Total 766 ml 1000 ml 955 ml 941 ml Tube Feeding 35 ml 220 ml 385 ml Other 120 ml Output Urine Total 350 ml 1925 ml 500 ml 550 ml Stool Total 0 ml # Bowel Movements 0 Result Diagram: 02/25/17 0416 02/25/17 0416 Imaging Last Impressions Barium Swallow X-Ray 02/21/17 0000 Signed Impressions: Service Date/Time: Tuesday, February 21, 2017 14:12 - CONCLUSION: No evidence of ulceration, mass effect or stricture. Esophageal dysmotility was identified within the lower two thirds of the esophagus at the termination of the exam which ultimately cleared without evidence of aspiration.. Debbie Haynes MD Chest X-Ray 02/20/17 0000 Signed Impressions: Service Date/Time: Monday, February 20, 2017 22:24 - CONCLUSION: Stable chest appearance Otis Pereyra MD Shoulder X-Ray 02/19/17 0000 Signed Impressions: Service Date/Time: January 19:20 - CONCLUSION: 1. Mild osteoarthritis of the right shoulder. No acute bony abnormalities. Giorgio Maldonado MD Objective Remarks GENERAL: Thin chronically ill appearing elderly male in some distress 2/2 nausea. SKIN: Warm and dry. No rash. HEAD: Normocephalic. Atraumatic. EYES: Pupils equal and round. No scleral icterus. No injection or drainage. ENT: No nasal bleeding or discharge. Mucous membranes pink and moist. NECK: Supple. Trachea midline. CARDIOVASCULAR: Regular rate and rhythm. S1, S2 noted. No murmur appreciated. RESPIRATORY: No accessory muscle use. Breath sounds diminished at bilateral bases with some faint expiratory wheezing. Breath sounds equal bilaterally. GASTROINTESTINAL: Abdomen soft, mild tenderness epigastric area, nondistended. Normoactive bowel sounds x4. MUSCULOSKELETAL: No obvious deformities. Extremities without clubbing, cyanosis , or edema. NEUROLOGICAL: Awake and alert. No obvious cranial nerve deficits. Motor grossly within normal limits. Generalized weakness. Normal speech. PSYCHIATRIC: Anxious mood; insight and judgment normal. 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 Casas who presents to the emergency room complaining of inability to eat or drink with failure to thrive. He is to be evaluated for PEG tube placement Dysphagia/odynophagia Nausea Constipation - ST for swallowing evaluation, recommends puree honey thick, started also tube feedings per dietary recommendations - GI consulted,s/p Barium Swallow - Patient presented for PEG placement - S/P EGD/PEG 02/23/17 - Start feeding tube per dietary recommendations. - Appreciate GI recommendations - Antiemetics as need - Laxatives/stool softeners scheduled and as need. 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 muscle waisting - consult palliative care for assistance with clarifying goals of treatment, appreciate assistance - Consult gastroenterology for eval of PEG tube placement, s/p barium swallow as above, plan for EGD w or w/o dilation 02/23 - Albumin 2.2 Acute on chronic respiratory failure, Dyspnea with hypoxia requiring venti mask 01/23 22 COPD exacerbation. Resolving, currently satting well on NC. Patient also gets extremely anxious and claustrophobic, likely contributing to symptoms, however does now has slight wheezing on exam. Repeat CXR ordered which actually showed improvement compared to previous study. Continue duonebs, IV Solumedrol, continue to taper Continue Xanax prn, IV morphine prn. Repeat Troponin/EKG at baseline, noncardiac , BNP normal. Continue to monitor. Continue IV abx for poss aspiration PNA Sputum cx pending, blood cx pending Urinary ag pneumoc/legionella pending Urinary retention: Place silva. Type 2 DM NA - Glucose 144 on admission; patient unable to eat or drink - Accuchecks ac and hs; notify MD if BG < 70 or > 300 - Low dose SSI - Started insulin detemir 15 U BID home med as BSin 400s. Also noted elevated AG of 20. Repeat labs AG closed. Restart home long acting insulin. Monitor BS Patient is NPO now and poss aspirated. On IV abx . 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 Casas. - Monitor vital signs q4h Anemia - Hgb 11.4 stable compared with recent hospitalizations in December and January - Monitor CBC History of CHF - monitor I and Os qshift - cautious use of IVFs if needed - Troponin I is less than 0.02 on admission Chronic Pain & Anxiety - continue patient's home morphine IR 15mg q6h prn - IV morphine prn while NPO - continue patient's Klonopin UTI - Urine culture preliminary with gram negative rods - Start IV Rocephin - monitor for final culture DVT prophylaxis- Lovenox 40 mg subq q24h Discussed with the nurse, patient, family at bedside. Problem Qualifiers (1) Anemia: Qualified Code: D64.9 - Anemia, unspecified type (2) Type 2 diabetes mellitus: Shannon Myers MD Feb 25, 2017 07:38
[2017-02-25] MEDS: RESP: ALBUTEROL 2.5 MG/IPRATROPIUM 0.5 MG NEB (SCH) NEB ×4 (07:43→20:16)
[2017-02-25] MEDS ORDERED: CALCIUM GLUCONATE INJ 1 GM in SODIUM CHLORIDE 0.9% INJ 100 ML IV ONE (07:45)
[2017-02-25] MEDS ORDERED: POTASSIUM BICARBONATE 25 MEQ EFFERVESCENT TAB PO ONE (07:45)
[2017-02-25] MEDS: FLUCONAZOLE 100 MG TAB PO SCH (08:34)
[2017-02-25] MEDS: DOCUSATE SODIUM 50 MG/SENNA 8.6 MG TAB PO SCH ×2 (08:35→21:19)
[2017-02-25] MEDS: SODIUM CHLORIDE 0.9% FLUSH 10 ML FLUSH IV FLUSH SCH ×2 (08:35→21:00)
[2017-02-25] MEDS: FUROSEMIDE 20 MG/2 ML VIAL IV PUSH SCH (08:35)
[2017-02-25] MEDS: TIOTROPIUM BROMIDE 18 MCG INH INH SCH (08:35)
[2017-02-25] MEDS: INSULIN DETEMIR 100 UNITS/ML VIAL SQ SCH ×2 (08:36→21:14)
[2017-02-25] MEDS: MORPHINE SULFATE 4 MG/ML INJ IV PUSH PRN ×5 (10:14→23:05)
--- NOTE | 2017-02-25 12:56 | HHI.HCPN ---
Reason for visit a. To assist with evaluation and management of symptoms including: pain, dysphagia. b. To assist medical decision maker(s) with: better understanding of current medical conditions; weighing benefits/burdens of medical treatment options; making medical treatment decisions. . Subjective/Interval History Call from on 02/24/17 6pm to report her is depressed and is tired of this. She requests we meet again on 02/25/17 around 10am. Met with patient and his in ICU. He is awake, lethargic. reports he is having a "much better day today." He has been having "anxiety attacks" more frequent at night. He verbalizes relief with PRN Lorazepam, but feels the pain medicine "helps more." He has Lorazepam 0.25mg IV every 6 hours PRN anxiety, he has had 3 doses in the past 24 hours. On Fentanyl 50mcg patch every 72 hours. Has Morphine 2 mg IV every 2 hours PRN pain, has had 4 doses in the past 24 hours. Psych consult pending, will await their recommendations for treatment of anxiety / depression. Discussed with Dr. Casas, he feels patient is depressed and that decline is related to depression. Patient falls asleep during my visit, is very optimistic during my visit. I did not readdress goals. Afebrile. Vital signs stable. On oxygen via NC. No BM recorded since admission on 02/21/17, on Senna S since 02/22/17, will monitor. Total protein 5.0. Later I was stopped my [facility] [place], Cece to report is again telling his he wants to go home to . I stopped by room, is tearful at bedside. Patient appears to be sleeping. I asked Mrs. Santana if she is ok - she nods no, I asked if she wanted to talk she again nodded no. Offered support, has Palliative care number she will call if she wants to talk. . . Family/friend interactions See interval note. . Advance Directives Health Care Surrogate: Copy in medical record Advance Directive Specifics Date completed: 02/18/17 Health Care Surrogate(s): Designated health care surrogate is Dana Santana and alternate surrogate is Lenora Matos. . Significant change in goals: FULL CODE. Desires continued aggressive care. . Objective Vital Signs Date Time Temp Pulse Resp B/P Pulse Ox O2 Delivery O2 Flow Rate FiO2 02/25/17 07:44 98 Nasal Cannula 3.00 02/25/17 06:00 78 02/25/17 04:00 98.3 77 18 134/63 97 02/25/17 04:00 77 02/25/17 02:00 80 02/25/17 00:00 98.5 81 15 131/59 95 02/25/17 00:00 81 02/24/17 22:00 81 02/24/17 20:00 83 02/24/17 20:00 98.9 84 15 140/64 95 02/24/17 19:30 97 Nasal Cannula 3.00 02/24/17 18:00 86 02/24/17 16:00 77 02/24/17 16:00 98.8 77 14 134/64 96 02/24/17 14:00 80 Intake & Output 02/25/17 02/25/17 07:00 19:00 Intake Total 3051 ml Output Total 1050 ml Balance 2001 ml Intake Oral 550 ml IV Total 1896 ml Tube Feeding 605 ml Output Urine Total 1050 ml Physical Exam CONSTITUTIONAL/GENERAL: This is a frail patient, in no apparent distress. TUBES/LINES/DRAINS: PIV right. SKIN: No jaundice, rashes, or lesions. Ecchymoses on upper extremities. No wounds seen anteriorly. Skin temperature appropriate. Not diaphoretic. ENT: Hearing grossly normal. Nose without bleeding or purulent drainage. CARDIOVASCULAR: Regular rate and rhythm without murmurs, gallops, or rubs. No JVD. Peripheral pulses symmetric. RESPIRATORY/CHEST: Symmetric, unlabored respirations. Course breath sounds bilateral bases. GASTROINTESTINAL: Abdomen soft, non-tender, nondistended. No guarding. Bowel sounds present. GENITOURINARY: Without palpable bladder distension. MUSCULOSKELETAL: Extremities without clubbing, cyanosis, or edema. No mottling or clubbing. NEUROLOGICAL: Awake, lethargic. Follows commands. Moves all extremities. General weakness. PSYCHIATRIC: + depression. no apparent hallucinations or other psychotic thought process. . Diagnostic Tests Laboratory Laboratory Tests Test 02/22/17 02/23/17 02/25/17 13:45 06:19 04:16 Urine Color YELLOW (YELLW/STRAW) Urine Turbidity CLOUDY (CLEAR) Urine pH 5.5 (5.0-8.5) Urine Specific [place] 1.025 (1.002-1.035) Urine Protein 30 mg/dL (NEG-TRACE) Urine Glucose (UA) NEG mg/dL (NEG) Urine Ketones NEG mg/dL (NEG) Urine Occult Blood MOD (NEG) Urine Nitrite NEG (NEG) Urine Bilirubin NEG (NEG) Urine Urobilinogen LESS THAN 2.0 MG/DL (LESS THAN 2.0) Urine Leukocyte Esterase LARGE (NEG) Urine RBC /hpf (0-3) Urine WBC /hpf (0-5) Urine WBC Clumps MANY (NONE) Urine Squamous Epithelial 3 /hpf (0-5) Cells Urine Bacteria MANY /hpf (NONE) Urine Yeast (Budding) MANY (NONE) Microscopic Urinalysis Comment CATH-CULTURE IND Sodium Level 137 MEQ/L 137 MEQ/L (136-145) (136-145) Potassium Level 3.6 MEQ/L 3.4 MEQ/L (3.5-5.1) (3.5-5.1) Chloride Level 99 MEQ/L 98 MEQ/L (98-107) (98-107) Carbon Dioxide Level 30.3 MEQ/L 29.8 MEQ/L (21.0-32.0) (21.0-32.0) Anion Gap 8 MEQ/L (5-15) 9 MEQ/L (5-15) Blood Urea Nitrogen 20 MG/DL (7-18) 17 MG/DL (7-18) Creatinine 0.58 MG/DL 0.74 MG/DL (0.60-1.30) (0.60-1.30) Estimat Glomerular Filtration 137 ML/MIN 103 ML/MIN Rate (>89) (>89) Random Glucose 98 MG/DL 364 MG/DL (74-106) (74-106) Calcium Level 7.5 MG/DL 6.9 MG/DL (8.5-10.1) (8.5-10.1) White Blood Count 9.3 TH/MM3 (4.0-11.0) Red Blood Count 3.97 MIL/MM3 (4.50-5.90) Hemoglobin 10.9 GM/DL (13.0-17.0) Hematocrit 34.1 % (39.0-51.0) Mean Corpuscular Volume 86.0 FL (80.0-100.0) Mean Corpuscular Hemoglobin 27.6 PG (27.0-34.0) Mean Corpuscular Hemoglobin 32.1 % Concent (32.0-36.0) Red Cell Distribution Width 18.3 % (11.6-17.2) Platelet Count 207 TH/MM3 (150-450) Mean Platelet Volume 7.8 FL (7.0-11.0) Neutrophils (%) (Auto) 92.9 % (16.0-70.0) Lymphocytes (%) (Auto) 2.0 % (9.0-44.0) Monocytes (%) (Auto) 4.9 % (0.0-8.0) Eosinophils (%) (Auto) 0.0 % (0.0-4.0) Basophils (%) (Auto) 0.2 % (0.0-2.0) Neutrophils # (Auto) 8.7 TH/MM3 (1.8-7.7) Lymphocytes # (Auto) 0.2 TH/MM3 (1.0-4.8) Monocytes # (Auto) 0.5 TH/MM3 (0-0.9) Eosinophils # (Auto) 0.0 TH/MM3 (0-0.4) Basophils # (Auto) 0.0 TH/MM3 (0-0.2) CBC Comment AUTO DIFF Differential Total Cells 100 Counted Neutrophils % (Manual) 87 % (16-70) Band Neutrophils % 5 % (0-6) Lymphocytes % 5 % (9-44) Monocytes % 3 % (0-8) Neutrophils # (Manual) 8.6 TH/MM3 (1.8-7.7) Differential Comment FINAL DIFF MANUAL Platelet Estimate NORMAL (NORMAL) Platelet Morphology Comment CLUMPED (NORMAL) Ovalocytes 1+ (NORMAL) Acanthocytes 2+ (NORMAL) Keratocytes OCC (NORMAL) Protein Corrected Calcium 8.0 MG/DL (8.5-10.1) Magnesium Level 1.9 MG/DL (1.5-2.5) Total Protein 5.0 GM/DL (6.4-8.2) Result Diagram: 02/25/17 0416 02/25/17 0416 Microbiology Microbiology Date/Time Procedure Status Source Growth 02/22/17 13:45 Urine Culture - Final Complete Urine Catheterized Urine Enterobacter Cloacae Sunitha Albicans 02/22/17 13:45 Legionella Antigen - Final Complete Urine Random Urine PRESUMPTIVE NEGATIVE FOR LEGIONELLA P... 02/22/17 13:45 Streptococcus pneumoniae Antigen (M - Final Complete Urine Random Urine PRESUMPTIVE NEGATIVE FOR STREPTOCOCCU... Imaging Last Impressions Barium Swallow X-Ray 02/21/17 0000 Signed Impressions: Service Date/Time: Tuesday, February 21, 2017 14:12 - CONCLUSION: No evidence of ulceration, mass effect or stricture. Esophageal dysmotility was identified within the lower two thirds of the esophagus at the termination of the exam which ultimately cleared without evidence of aspiration.. Debbie Haynes MD Chest X-Ray 02/20/17 0000 Signed Impressions: Service Date/Time: Monday, February 20, 2017 22:24 - CONCLUSION: Stable chest appearance Otis Pereyra MD Shoulder X-Ray 02/19/17 0000 Signed Impressions: Service Date/Time: January 19:20 - CONCLUSION: 1. Mild osteoarthritis of the right shoulder. No acute bony abnormalities. Giorgio Maldonado MD . Procedures * 02/23/17 - EGD with PEG tube placement, + esophagitis in the total esophagus. . Assessment and Plan Disease Oriented Problem List: (1) Failure to thrive in adult (2) Type 2 diabetes mellitus (3) Squamous cell carcinoma of epiglottis (4) Dysphagia (5) Odynophagia Symptom Scale: (1) Depression 0-10 Scale: Unable to quantify (2) Decreased oral intake 0-10 Scale: Unable to quantify Comment: thickened liquids, s/p PEG tube 02/23/17. Tolerating tube feeds at goal (65cc/hr) today. (3) Generalized weakness 0-10 Scale: Unable to quantify (4) Poor appetite 0-10 Scale: Unable to quantify Comment: thickened liquids, s/p PEG tube 02/23/17. Tolerating tube feeds at goal (65cc/hr) today. Pertinent Non-Medical Issues Psychosocial: Primary local psychosocial support is from his spouse. He has his own children in [place] and [place] Spiritual: Religious. A all round logger has already visited him. Legal: No advance directives. would be proxy if patient becomes incapacitate. Ethical issues impacting care: Patient is currently capacitated to make his own health care decisions. . Important Contacts * Dana Santana (spouse) [phone]; [phone] * Lenora Matos (daughter) [phone] . Prognosis Patient has had 7 hospitalizations since November 2016, he has general debility, failure to thrive and multiple medical comorbidities, he has an early SCC of the epiglottis that per radiation oncology is potentially curable if he is able to get and survive treatment. . Code Status: Full Code Plan * Decision Maker: Patient is currently capacitated. Designated health care surrogate is Dana Santana and alternate surrogate is Lenora Matos. * FULL CODE * Palliative care met with patient and his . They hope to return to rehab to get strong enough to obtain radiation therapy as previously planned. * SYMPTOMS: Pain:chronic pain in back, denies pain in throat. Decreased appetite : secondary to malignancy. Plan for G/J tube placement. Weakness: due to comorbidities, cancer and frequent hospitalizations. * Palliative care will continue to follow throughout hospital course to assist with symptom management and clarification of goals as needed. . Time Spent Total Floor Time (mins): 60 Face to Face Time (mins): 45 >50% Counseling/Coord of Care: Yes Attestation To help prompt me to consider important information that might be impacting today's encounter and assessment, information from prior notes written by myself or my colleagues may have been "brought forward" into today's note. My signature on this note, however, is an attestation that I personally performed the exam, history, and/or decision-making noted today, and, unless otherwise indicated, the interactions with patient, family, and staff as well as the review of records all occurred today. I also attest that the listed assessment and stated plan reflect my best clinical judgment today based on the combination of historical information, prior notes, and today's exam/ interactions. When time spent is documented, it refers only to time spent today by the signer, or if indicated, combined time spent today by collaborating physician/nurse practitioner. JESSA JOSEPH Feb 25, 2017 12:56
[2017-02-25] MEDS: ONDANSETRON HCL 4 MG/2 ML VIAL IVP PRN (14:26)
[2017-02-25] MEDS: AZITHROMYCIN INJ 500 MG in SODIUM CHLOR 0.9% 250 ML INJ 250 ML IV SCH (23:05)
[2017-02-26] VITALS (7 sets, daily range): BP systolic 138–177; BP diastolic 65–81; PULSE 80–89; RESP 18–19; TEMP 96.2–98.2; O2SAT 95–98
[2017-02-26] MEDS: LORazepam 2 MG/ML VIAL IV PUSH PRN (00:12)
[2017-02-26] MEDS: methylPREDNISolone SOD SUCC 40 MG/1 ML VIAL IV PUSH SCH ×2 (00:12→05:54)
[2017-02-26] MEDS: PIPERACIL-TAZO 4.5 GM PREMIX 100 ML IV SCH ×4 (00:13→16:49)
[2017-02-26] MEDS: INSULIN ASPART SUPPLEMENTAL SCALE SQ SCH ×5 (00:16→15:22)
[2017-02-26] MEDS: MORPHINE SULFATE 4 MG/ML INJ IV PUSH PRN ×3 (01:00→06:05)
[2017-02-26] MEDS: MORPHINE SULFATE ORAL SOLN 10 MG/0.5 ML SYRINGE G-TUBE PRN ×3 (02:23→18:11)
[2017-02-26 07:22] LABS: BICARBONATE 22.5 MEQ/L (21.0-32.0); MAGNESIUM 1.8 MG/DL (1.5-2.5); POTASSIUM 4.2 MEQ/L (3.5-5.1)
--- NOTE | 2017-02-26 07:23 | HHI.PR ---
Subjective Remarks In bed. Feels improved. No n/v/d/c. Feels weak. No feevr or chills. SOB and wheezing improving. Low phos replaced with PO Low Ca replace with IV Ca gluconate. Objective Vitals Vital Signs Date Time Temp Pulse Resp B/P Pulse Ox O2 Delivery O2 Flow Rate FiO2 02/26/17 04:00 97.5 80 18 155/80 96 02/26/17 00:00 98.2 87 18 145/73 95 02/25/17 21:00 97.9 86 18 139/66 96 02/25/17 20:20 82 02/25/17 20:16 96 Nasal Cannula 3.00 02/25/17 17:45 98.5 82 20 141/76 96 02/25/17 16:00 98.9 79 18 149/78 97 02/25/17 12:00 98.1 76 18 156/72 98 02/25/17 08:00 97.9 77 18 139/63 96 02/25/17 07:44 98 Nasal Cannula 3.00 I/O 02/25/17 02/25/17 02/25/17 02/26/17 02/26/17 02/26/17 07:00 15:00 23:00 07:00 15:00 23:00 Intake Total 1876 ml 2265 ml 720 ml 2945 ml Output Total 550 ml 1950 ml 850 ml Balance 1326 ml 315 ml -130 ml 2945 ml Intake Oral 550 ml 700 ml 720 ml IV Total 941 ml 1060 ml 1830 ml Tube Feeding 385 ml 505 ml 715 ml Other 400 ml Output Urine Total 550 ml 1950 ml 850 ml Result Diagram: 02/25/17 0416 02/25/17 0416 Imaging Last Impressions Barium Swallow X-Ray 02/21/17 0000 Signed Impressions: Service Date/Time: Tuesday, February 21, 2017 14:12 - CONCLUSION: No evidence of ulceration, mass effect or stricture. Esophageal dysmotility was identified within the lower two thirds of the esophagus at the termination of the exam which ultimately cleared without evidence of aspiration.. Debbie Haynes MD Chest X-Ray 02/20/17 0000 Signed Impressions: Service Date/Time: Monday, February 20, 2017 22:24 - CONCLUSION: Stable chest appearance Otis Pereyra MD Shoulder X-Ray 02/19/17 0000 Signed Impressions: Service Date/Time: January 19:20 - CONCLUSION: 1. Mild osteoarthritis of the right shoulder. No acute bony abnormalities. Giorgio Maldonado MD Objective Remarks GENERAL: Thin chronically ill appearing elderly male in some distress 2/2 nausea. SKIN: Warm and dry. No rash. HEAD: Normocephalic. Atraumatic. EYES: Pupils equal and round. No scleral icterus. No injection or drainage. ENT: No nasal bleeding or discharge. Mucous membranes pink and moist. NECK: Supple. Trachea midline. CARDIOVASCULAR: Regular rate and rhythm. S1, S2 noted. No murmur appreciated. RESPIRATORY: No accessory muscle use. Breath sounds diminished at bilateral bases with some faint expiratory wheezing. Breath sounds equal bilaterally. GASTROINTESTINAL: Abdomen soft, mild tenderness epigastric area, nondistended. Normoactive bowel sounds x4. MUSCULOSKELETAL: No obvious deformities. Extremities without clubbing, cyanosis , or edema. NEUROLOGICAL: Awake and alert. No obvious cranial nerve deficits. Motor grossly within normal limits. Generalized weakness. Normal speech. PSYCHIATRIC: Anxious mood; insight and judgment normal. 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 Casas who presents to the emergency room complaining of inability to eat or drink with failure to thrive. He is to be evaluated for PEG tube placement Dysphagia/odynophagia Nausea Constipation - ST for swallowing evaluation, recommends puree honey thick, started also tube feedings per dietary recommendations - GI consulted,s/p Barium Swallow - Patient presented for PEG placement - S/P EGD/PEG 02/23/17 - Start feeding tube per dietary recommendations. - Appreciate GI recommendations - Antiemetics as need - Laxatives/stool softeners scheduled and as need. Refeeding syndrom with low phos. . 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 muscle waisting - consult palliative care for assistance with clarifying goals of treatment, appreciate assistance - Consult gastroenterology for eval of PEG tube placement, s/p barium swallow as above, plan for EGD w or w/o dilation 02/23 - Albumin 2.2 Acute on chronic respiratory failure, Dyspnea with hypoxia requiring venti mask 01/23 22 COPD exacerbation. Resolving, currently satting well on NC. Patient also gets extremely anxious and claustrophobic, likely contributing to symptoms, however does now has slight wheezing on exam. Repeat CXR ordered which actually showed improvement compared to previous study. Continue duonebs, IV Solumedrol, continue to taper Continue Xanax prn, IV morphine prn. Repeat Troponin/EKG at baseline, noncardiac , BNP normal. Continue to monitor. Continue IV abx for poss aspiration PNA Sputum cx pending, blood cx pending Urinary ag pneumoc/legionella pending Urinary retention: Place silva. Type 2 DM NA - Glucose 144 on admission; patient unable to eat or drink - Accuchecks ac and hs; notify MD if BG < 70 or > 300 - Low dose SSI - Started insulin detemir 15 U BID home med as BSin 400s. Also noted elevated AG of 20. Repeat labs AG closed. Restart home long acting insulin. Monitor BS Patient is NPO now and poss aspirated. On IV abx . 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 Casas. - Monitor vital signs q4h Anemia - Hgb 11.4 stable compared with recent hospitalizations in December and January - Monitor CBC History of CHF - monitor I and Os qshift - cautious use of IVFs if needed - Troponin I is less than 0.02 on admission Chronic Pain & Anxiety - continue patient's home morphine IR 15mg q6h prn - IV morphine prn while NPO - continue patient's Klonopin UTI - Urine culture preliminary with gram negative rods - Start IV Rocephin - monitor for final culture DVT prophylaxis- Lovenox 40 mg subq q24h Discussed with the nurse, patient, family at bedside. Discharge Planning Plan to DC to SNF. Problem Qualifiers (1) Anemia: Qualified Code: D64.9 - Anemia, unspecified type (2) Type 2 diabetes mellitus: Shannon Myers MD Feb 26, 2017 07:23
[2017-02-26 07:31] LABS: AUTOMATED NEUTROPHIL # 13.3 TH/MM3 (1.8-7.7); BASOPHIL % 0.3 % (0.0-2.0); HEMATOCRIT 36.6 % (39.0-51.0); LYMPH % 1.8 % (9.0-44.0); LYMPHOCYTE # 0.2 TH/MM3 (1.0-4.8); MEAN CELL VOLUME 84.8 FL (80.0-100.0); MEAN CORPUSCULAR HEMOGLOBIN 27.3 PG (27.0-34.0); MEAN CORPUSCULAR HGB CONC 32.1 % (32.0-36.0); NEUT % 95.9 % (16.0-70.0); PLATELET COUNT 223 TH/MM3 (150-450); RED BLOOD COUNT 4.31 MIL/MM3 (4.50-5.90); RED CELL DISTRIBUTION WIDTH 18.8 % (11.6-17.2); WHITE BLOOD COUNT 13.9 TH/MM3 (4.0-11.0)
[2017-02-26 07:33] LABS: HEMO FLAGS AUTO DIFF
[2017-02-26] MEDS: RESP: ALBUTEROL 2.5 MG/IPRATROPIUM 0.5 MG NEB (SCH) NEB ×3 (07:55→15:52)
--- NOTE | 2017-02-26 07:55 | HHI.DS ---
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 Casas who presents to the emergency room complaining of inability to eat or drink with failure to thrive. He is currently at [facility] for rehabilitation under the care of Dr. Mcqueen who would like him to be evaluated for PEG tube placement. The patient is seen in the CDU. He reports that he isn't having painful swallowing along with difficulty swallowing. He states that it feels like food is getting stuck in his throat. He says he has been unable to eat or drink. He denies nausea vomiting or diarrhea. He reports fatigue. He denies cough, dysuria or hematuria diarrhea, black or red stool or syncope. He appears capacitated to participate in medical decision making. He states he would be interested in getting a feeding tube placed. This is the patients 7th admission in 2017: December 11 through December 15 Pneumonia and atrial flutter with RVR January 02 through January 09 for facial monroy sustained while smoking and using supplemental oxygen January 15 through January 20 for sepsis, UTI, CHF January 27 january for first for pneumonias, sepsis, COPD exacerbation January 28 through February 05 for major depressive disorder February 05 through February 11 for pleural effusion . CBC/BMP: 02/26/17 0600 02/26/17 0600 Significant Findings Laboratory Tests Test 02/25/17 02/26/17 04:16 06:00 Red Blood Count 3.97 MIL/MM3 4.31 MIL/MM3 (4.50-5.90) (4.50-5.90) Hemoglobin 10.9 GM/DL 11.8 GM/DL (13.0-17.0) (13.0-17.0) Hematocrit 34.1 % 36.6 % (39.0-51.0) (39.0-51.0) Red Cell Distribution Width 18.3 % 18.8 % (11.6-17.2) (11.6-17.2) Neutrophils (%) (Auto) 92.9 % 95.9 % (16.0-70.0) (16.0-70.0) Lymphocytes (%) (Auto) 2.0 % 1.8 % (9.0-44.0) (9.0-44.0) Neutrophils # (Auto) 8.7 TH/MM3 13.3 TH/MM3 (1.8-7.7) (1.8-7.7) Lymphocytes # (Auto) 0.2 TH/MM3 0.2 TH/MM3 (1.0-4.8) (1.0-4.8) Neutrophils % (Manual) 87 % (16-70) Lymphocytes % 5 % (9-44) Neutrophils # (Manual) 8.6 TH/MM3 (1.8-7.7) Platelet Morphology Comment CLUMPED (NORMAL) Ovalocytes 1+ (NORMAL) Acanthocytes 2+ (NORMAL) Potassium Level 3.4 MEQ/L (3.5-5.1) Random Glucose 364 MG/DL 309 MG/DL (74-106) (74-106) Calcium Level 6.9 MG/DL 7.0 MG/DL (8.5-10.1) (8.5-10.1) Protein Corrected Calcium 8.0 MG/DL (8.5-10.1) Total Protein 5.0 GM/DL (6.4-8.2) White Blood Count 13.9 TH/MM3 (4.0-11.0) Sodium Level 132 MEQ/L (136-145) Phosphorus Level 0.6 MG/DL (2.5-4.9) Imaging Last Impressions Barium Swallow X-Ray 02/21/17 0000 Signed Impressions: Service Date/Time: Tuesday, February 21, 2017 14:12 - CONCLUSION: No evidence of ulceration, mass effect or stricture. Esophageal dysmotility was identified within the lower two thirds of the esophagus at the termination of the exam which ultimately cleared without evidence of aspiration.. Debbie Haynes MD Chest X-Ray 02/20/17 0000 Signed Impressions: Service Date/Time: Monday, February 20, 2017 22:24 - CONCLUSION: Stable chest appearance Otis Pereyra MD Shoulder X-Ray 02/19/17 0000 Signed Impressions: Service Date/Time: January 19:20 - CONCLUSION: 1. Mild osteoarthritis of the right shoulder. No acute bony abnormalities. Giorgio Maldonado MD PE at Discharge GENERAL: Thin chronically ill appearing elderly male in some distress 2/2 nausea. SKIN: Warm and dry. No rash. HEAD: Normocephalic. Atraumatic. EYES: Pupils equal and round. No scleral icterus. No injection or drainage. ENT: No nasal bleeding or discharge. Mucous membranes pink and moist. NECK: Supple. Trachea midline. CARDIOVASCULAR: Regular rate and rhythm. S1, S2 noted. No murmur appreciated. RESPIRATORY: No accessory muscle use. Breath sounds diminished at bilateral bases with some faint expiratory wheezing. Breath sounds equal bilaterally. GASTROINTESTINAL: Abdomen soft, mild tenderness epigastric area, nondistended. Normoactive bowel sounds x4. MUSCULOSKELETAL: No obvious deformities. Extremities without clubbing, cyanosis , or edema. NEUROLOGICAL: Awake and alert. No obvious cranial nerve deficits. Motor grossly within normal limits. Generalized weakness. Normal speech. PSYCHIATRIC: Anxious mood; insight and judgment normal. Pt update on day of discharge In the bed, appears in nad. No n/v/d/c. Feels improved. SOB at baseline, no wheezing. No fever or chills. Hospital Course Tube feedings with tray Jevity 1.5 raphael goal of 65 Flush PEG tube every 6 hrs with water and after eache PEG feeding 1800 ADA pureed /honey thickened liquids Pt Condition on Discharge: Stable Discharge Disposition: Discharge to SNF Discharge Time: > 30 minutes Discharge Instructions DIET: Follow Instructions for: Diabetic Diet Speech Therapy-Diet Recommends: Honey Thickened Liquids, Pureed Additional Diet Instructions: Tube feedings with tray Jevity 1.5 raphael goal of 65 Flush PEG tube every 6 hrs with water and after eache PEG feeding 1800 ADA pureed /honey thickened liquids Activities you can perform: Regular-No Restrictions Follow up Referrals: Gastroenterology - 2 Weeks PCP Follow-up - 3-5 Days SNF/[facility]/ with [facility] New Medications: Levofloxacin (Levaquin) 750 Mg Tab 750 MG PO DAILY Infection #7 Ref 0 TAB Potassium Phosphate Monobasic (K-Phos) 500 Mg Tab 500 MG PO PCHS Electrolyte Replacement #10 Ref 0 TAB Prednisone (21) 10 mg tab Dose Pack (Prednisone (21) 10 mg tab Dose Pack) 10 Mg Pack 10 MG PO DIRECTED Inflammation #1 Ref 0 DSPK Sulfamethoxazole-Trimethoprim (Sulfamethoxazole-Trimethoprim) 800-160 Mg Tab 1 TAB PO BID Infection #14 Ref 0 TAB Continued Medications: Albuterol Powder Inh (Proair Respiclick Inh) 90 Mcg/Act Aerp 2 PUFF INH Q4HR PRN SHORTNESS OF BREATH #1 Ref 0 INHALER Amiodarone (Amiodarone) 200 Mg Tab 200 MG PO DAILY afib #30 TAB Atorvastatin (Atorvastatin) 40 Mg Tab 40 MG PO HS Cholesterol Management #30 Ref 0 TAB Azithromycin (Zithromax Z-Joe) 250 Mg Dspk 250 MG PO DIRECTED 500 MG (2 tabs) day 1, then 1 tab days 2-5. Infection Days 5 Ref 0 DSPK Cholecalciferol (Vitamin D3) 1,000 Unit Tab 2000 UNITS PO DAILY Nutritional Supplement #1 Ref 0 BOTTLE Clonazepam (Klonopin) 0.5 Mg Tab 0.5 MG PO Q12HR anxiety/depression #60 Ref 0 TAB (This prescription has been renewed) Diltiazem CD 24 HR (Cardizem CD 24 HR) 240 Mg Caper 240 MG PO BID a-fib #60 CAP Docusate Sodium (Docusate Sodium) 100 Mg Cap 100 MG PO BID Prevent Constipation #60 Ref 0 CAP Dronabinol (Marinol) 5 Mg Cap 5 MG PO BID poor appetite #62 Ref 0 CAP Fentanyl Patch 72 HR (Duragesic Patch 72 HR) 50 Mcg/Hr Patch 1 PATCH TD Q72H Pain Management #10 PATCH (This prescription has been renewed) Furosemide (Lasix) 20 Mg Tab 20 MG PO DAILY Days 3 Ref 0 TAB Insulin Aspart Inj (Novolog Inj) 1,000 Unit/10 Ml Vial 0 SQ ACHS Sliding Scale: 150-199=1 UNIT, 200-249=3 UNITS, 250-299=5 UNITS, 300- 347=7 UNITS, >349=9 UNITS Blood Sugar Management #10 Ref 0 ML Insulin Detemir Inj (Levemir Flextouch Pen Inj) 300 unit/3 ML Pen 15 UNITS SQ Q12HR NEB Blood Sugar Management #3 Ref 0 PEN Ipratropium-Albuterol Neb (Duoneb) 0.5-2.5 Mg/3 Ml Neb 1 AMPULE INH QID NEB Breathing #20 NEBULE Lactulose Liq (Lactulose Liq) 10 Gm/15 Ml Soln 30 ML PO DAILY Constipation #1 BOTTLE Levothyroxine (Levothyroxine) 25 Mcg Tab 225 MCG PO DAILY Take 1 tablet (25mcg) with 200mcg tablet for a total dose of 225mcg Thyroid #30 Ref 0 TAB Morphine IR (Morphine IR) 15 Mg Tab 15 MG PO Q4H PRN PAIN SCALE 1 TO 5 #30 TAB (This prescription has been renewed) Multiple Vitamins W/ Minerals (Multivitamin Adults) 1 Tab 1 TAB PO DAILY Nutritional Supplement Ref 0 TAB Nicotine Patch (Nicotine Patch) Unknown Strength Patch 1 PATCH T-DERMAL DAILY Smoking Cessation #30 Ref 0 PATCH Ondansetron (Zofran) 8 Mg Tab 8 MG PO Q8HR PRN NAUSEA OR VOMITING Ref 0 TAB Oyster Shell (Oyster Shell) 500 Mg Tab 500 MG PO DAILY Pantoprazole (Protonix) 40 Mg Tab 40 MG PO DAILY Reflux #30 Ref 0 TAB Ranitidine (Zantac) 150 Mg Tab 150 MG PO BID Reduce Stomach Acid #60 Ref 0 TAB Rivaroxaban (Xarelto) 20 Mg Tab 20 MG PO DAILY Blood Clot Prevention #30 Ref 0 TAB Saccharomyces Boulardii (Florastor) 250 Mg Cap 250 MG PO BID Nutritional Supplement Days 10 Ref 0 CAP Sennosides (Senna) 8.8 Mg/5 Ml Syp 15 MG PO BID Tamsulosin (Flomax) 0.4 Mg Cap 0.4 MG PO HS Urination #30 CAP Tiotropium Inh (Spiriva Handihaler) 18 Mcg Cap 18 MCG INH DAILY 1 capsule = 18 mcg COPD #30 Ref 0 CAP Trazodone (Trazodone) 100 Mg Tab 200 MG PO HS Control Depression #30 Ref 0 TAB Venlafaxine ER 24 HR (Effexor XR 24 HR) 75 Mg Cap 225 MG PO DAILY Depression Control #31 CAP Discontinued Medications: Levothyroxine (Levothyroxine) 200 Mcg Tab 225 MCG PO DAILY Take 1 tablet (200mcg) with 25mcg tablet for a total dose of 225mcg Thyroid #30 Ref 0 TAB Shannon Myers MD Feb 26, 2017 07:55
[2017-02-26] MEDS ORDERED: MSIR15 PO (08:02)
[2017-02-26] MEDS ORDERED: CLON.5 PO (08:02)
[2017-02-26] MEDS ORDERED: PRED10PA PO (08:02)
[2017-02-26] MEDS ORDERED: FENT50T TD (08:02)
[2017-02-26] MEDS ORDERED: K-PHTAB PO (08:09)
[2017-02-26 08:19] LABS: BANDS 4 % (0-6); METAMYELOCYTES 1 % (0-1); NEUTROPHIL # MANUAL DIFF 13.3 TH/MM3 (1.8-7.7); POLYS (SEG NEUTROPHILS) 91 % (16-70); WBC DIFF SAMPLE 100
[2017-02-26 08:20] LABS: ACANTHOCYTES 2+ (NORMAL); OVALOCYTES 1+ (NORMAL); PLATELET ESTIMATE SMEAR NORMAL (NORMAL); PLATELET MORPHOLOGY NORMAL (NORMAL); SCAN/DIFF FINAL DIFF MANUAL
[2017-02-26 08:21] LABS: KERATOCYTES 1+ (NORMAL)
[2017-02-26] MEDS ORDERED: MAGNESIUM OXIDE 400 MG TAB PO SCH (09:00)
[2017-02-26] MEDS ORDERED: POTASSIUM PHOSPHATE MONOBASIC 500 MG TAB PO SCH (09:00)
[2017-02-26] MEDS ORDERED: SULF1TAB23 PO (09:01)
[2017-02-26] MEDS ORDERED: LEVA750T PO (09:01)
[2017-02-26] MEDS ORDERED: CALCIUM GLUCONATE INJ 2 GM in SODIUM CHLORIDE 0.9% INJ 100 ML IV ONE (10:00)
[2017-02-26] MEDS: DOCUSATE SODIUM 50 MG/SENNA 8.6 MG TAB PO SCH (10:51)
[2017-02-26] MEDS: FLUCONAZOLE 100 MG TAB PO SCH (10:51)
[2017-02-26] MEDS: SODIUM CHLOR 0.9% 1000 ML INJ 1,000 ML IV SCH (10:51)
[2017-02-26] MEDS: SODIUM CHLORIDE 0.9% FLUSH 10 ML FLUSH IV FLUSH SCH (10:53)
[2017-02-26] MEDS: FUROSEMIDE 20 MG/2 ML VIAL IV PUSH SCH (10:53)
[2017-02-26] MEDS: TIOTROPIUM BROMIDE 18 MCG INH INH SCH (10:54)
[2017-02-26] MEDS: INSULIN DETEMIR 100 UNITS/ML VIAL SQ SCH (11:06)
[2017-02-26] MEDS: REMOVE OLD DURAGESIC (FENTANYL) PATCH TD SCH (13:00)
[2017-02-26] MEDS: fentaNYL 50 MCG/HR PATCH TD SCH (15:11)
--- NOTE | 2017-02-26 15:16 | PD.CONS ---
Provisional Diagnosis Admission Date Feb 21, 2017 at 16:07 [place] I. Major depressive disorder, recurrent, moderate, without psychosis Laurel II. 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 Casas, who presented to presents to the emergency room complaining of inability to eat or drink with failure to thrive. He is currently at [facility] for rehabilitation under the care of Dr. Mcqueen who would like him to be evaluated for PEG tube placement. Patient was consulted to psychiatry due to depressive symptoms. On psychiatric evaluation patient was found calm, cooperative but sleepy. Patient stated that PEG was placed days ago at the beginning a little bit painful but now better. Patient recognized me immediately, he says that he has been is struggling hard with radiation therapy. He states he has been a difficult process, but not as painful as he expected. Patient says that his mood has been on and off, some days depressed, some days with more energy and motivated. His family has been wonderful helping him and giving his support. Today he feels much better, happy that his denies seeing his , he denies suicidal and homicidal ideation, he denies visual and auditory hallucinations. Patient is fully oriented 3, no gross cognitive impairment observed. Patient denies the use of drugs and alcohol. Review of Systems Constitutional: DENIES: Diaphoretic episodes, Fatigue, Fever, Weight gain, Weight loss, Chills, Dizziness, Change in appetite, Night Sweats Endocrine: DENIES: Heat/cold intolerance, Polydipsia, Polyuria, Polyphagia Eyes: DENIES: Blurred vision, Diplopia, Eye inflammation, Eye pain, Vision loss , Photosensitivity, Double Vision Ears, nose, mouth, throat: DENIES: Tinnitus, Hearing loss, Vertigo, Nasal discharge, Oral lesions, Throat pain, Hoarseness, Ear Pain, Running Nose, Epistaxis, Sinus Pain, Toothache, Odynophagia Respiratory: DENIES: Apneas, Cough, Snoring, Wheezing, Hemoptysis, Sputum production, Shortness of breath Cardiovascular: DENIES: Chest pain, Palpitations, Syncope, Dyspnea on Exertion , PND, Lower Extremity Edema, Orthopnea, Claudication Gastrointestinal: DENIES: Abdominal pain, Black stools, Bloody stools, Constipation, Diarrhea, Nausea, Vomiting, Difficulty Swallowing, Anorexia Musculoskeletal: DENIES: Joint pain, Muscle aches, Stiffness, Joint Swelling, Back pain, Neck pain Integumentary: DENIES: Abnormal pigmentation, Nail changes, Pruritus, Rash Hematologic/lymphatic: DENIES: Bruising, Lymphadenopathy Immunologic/allergic: DENIES: Eczema, Urticaria Psychiatric: DENIES: Anxiety, Confusion, Mood changes, Depression, Hallucinations, Agitation, Suicidal Ideation, Homicidal Ideation, Delusions Past Family Social History Coded Allergies: Flagyl (Verified Allergy, Severe, 01/27/17) Floxcin (Verified Allergy, Severe, 01/27/17) Latex (Verified Allergy, Severe, 01/27/17) Adhesives (Verified Allergy, Mild, 01/27/17) *MDRO Multi-Drug Resistant Organism (Verified Adverse Reaction, Unknown, ) 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/17 Active Scripts Potassium Phosphate Monobasic (K-Phos)500 Mg [id number] Mg PO PCHS #10 TAB Ref 0 Prov:Shannon Myers MD 02/26/17 Prednisone (21) 10 mg tab Dose Pack 10 Mg Pack10 Mg PO DIRECTED #1 DSPK Ref 0 Prov:Shannon Myers MD 02/26/17 Clonazepam (Klonopin)0.5 Mg Tab0.5 Mg PO Q12HR #60 TAB Ref 0 Prov:Shannon Myres MD 02/26/17 Morphine IR 15 Mg Tab15 Mg PO Q4H PRN (PAIN SCALE 1 TO 5) #30 TAB Prov:Shannon Myers MD 02/26/17 Fentanyl Patch 72 HR (Duragesic Patch 72 HR)50 Mcg/Hr Patch1 Patch TD Q72H #10 PATCH Prov:Shannon Myers MD 02/26/17 Dronabinol (Marinol)5 Mg Cap5 Mg PO BID #62 CAP Ref 0 Prov:Favian Keyes MD 02/10/17 Venlafaxine ER 24 HR (Effexor XR 24 HR)75 Mg Mws257 Mg PO DAILY #31 CAP Prov:Favian Keyes MD 02/10/17 Lactulose Liq 10 Gm/15 Ml Soln30 Ml PO DAILY #1 BOTTLE Prov:Favian Keyes MD 02/10/17 Insulin Detemir Inj (Levemir Flextouch Pen Inj)300 unit/3 ML Pen15 Units SQ Q12HR NEB #3 PEN Ref 0 Prov:Favian Keyes MD 02/10/17 Amiodarone 200 Mg Ipj961 Mg PO DAILY #30 TAB Prov:Favian Keyes MD 02/10/17 Ipratropium-Albuterol Neb (Duoneb)0.5-2.5 Mg/3 Ml Neb1 Ampule INH QID NEB #20 NEBULE Prov:Burke Govea DO 01/28/17 Tamsulosin (Flomax)0.4 Mg Cap0.4 Mg PO HS #30 CAP Prov:Burke Govea DO 01/28/17 Diltiazem CD 24 HR (Cardizem CD 24 HR)240 Mg Havcv720 Mg PO BID #60 CAP Prov:John Hargrove MD 01/10/17 Ranitidine (Zantac)150 Mg Lvi569 Mg PO BID #60 TAB Ref 0 Prov:John Hargrove MD 01/10/17 Pantoprazole (Protonix)40 Mg Tab40 Mg PO DAILY #30 TAB Ref 0 Prov:John Hargrove MD 01/10/17 Atorvastatin 40 Mg Tab40 Mg PO HS #30 TAB Ref 0 Prov:John Hargrove MD 01/10/17 Tiotropium Inh (Spiriva Handihaler)18 Mcg Cap18 Mcg INH DAILY #30 CAP Ref 0 1 capsule = 18 mcg Prov:John Hargrove MD 01/10/17 Rivaroxaban (Xarelto)20 Mg Tab20 Mg PO DAILY #30 TAB Ref 0 Prov:John Hargrove MD 01/10/17 Reported Medications Azithromycin (Zithromax Z-Joe)250 Mg Erut274 Mg PO DIRECTED 5 Days Ref 0 500 MG (2 tabs) day 1, then 1 tab days 2-5. 02/19/17 Saccharomyces Boulardii (Florastor)250 Mg Shr928 Mg PO BID 10 Days Ref 0 02/19/17 Insulin Aspart Inj (Novolog Inj)1,000 Unit/10 Ml Vial SQ ACHS #10 ML Ref 0 Sliding Scale: 150-199=1 UNIT, 200-249=3 UNITS, 250-299=5 UNITS, 300-347=7 UNITS, >349=9 UNITS 02/19/17 Levothyroxine 25 Mcg Xjn928 Mcg PO DAILY #30 TAB Ref 0 Take 1 tablet (25mcg) with 200mcg tablet for a total dose of 225mcg 02/19/17 Levothyroxine 200 Mcg Uag987 Mcg PO DAILY #30 TAB Ref 0 Take 1 tablet (200mcg) with 25mcg tablet for a total dose of 225mcg 02/19/17 Ondansetron (Zofran)8 Mg Tab8 Mg PO Q8HR PRN (NAUSEA OR VOMITING) Ref 0 02/19/17 Furosemide (Lasix)20 Mg Tab20 Mg PO DAILY 3 Days Ref 0 02/19/17 Cholecalciferol (Vitamin D3)1,000 Unit Tab2,000 Units PO DAILY #1 BOTTLE Ref 0 02/19/17 Oyster Shell 500 Mg Wgo448 Mg PO DAILY 02/19/17 Nicotine Patch Unknown Strength Patch1 Patch T-DERMAL DAILY #30 PATCH Ref 0 02/19/17 Sennosides (Senna)8.8 Mg/5 Ml Syp15 Mg PO BID 01/11/17 Trazodone 100 Mg Fru319 Mg PO HS #30 TAB Ref 0 01/11/17 Multiple Vitamins W/ Minerals (Multivitamin Adults)1 Tab1 Tab PO DAILY Ref 0 01/02/17 Docusate Sodium 100 Mg Lgj657 Mg PO BID #60 CAP Ref 0 01/02/17 Albuterol Powder Inh (Proair Respiclick Inh)90 Mcg/Act Aerp2 Puff INH Q4HR PRN ( SHORTNESS OF BREATH) #1 INHALER Ref 0 11/17/16 Discontinued Reported Medications Clonazepam (Klonopin)0.5 Mg Tab0.5 Mg PO Q12HR #60 TAB Ref 0 02/19/17 Methylnaltrexone (Relistor)150 Mg TabUnknown Dose #30 TAB Ref 0 01/31/17 Discontinued Scripts Morphine IR 15 Mg Tab15 Mg PO Q4H PRN (PAIN SCALE 1 TO 5) #30 TAB Prov:Favian Keyes MD 02/10/17 Fentanyl Patch 72 HR (Duragesic Patch 72 HR)50 Mcg/Hr Patch1 Patch TD Q72H #10 PATCH Prov:Favian Keyes MD 02/10/17 Bacitracin Topical 500 Unit/Gm Oint1 Applic TOP Q12HR #2 TUBE Prov:Favian Keyes MD 02/10/17 Potassium Chloride ER 10 Meq Cap10 Meq PO EVERY OTHER DAY #30 CAP Ref 0 Prov:Vicky Garcia MD 01/20/17 Nystatin Topical 100,000 unit/gm Oint1 Applic TOPICAL Q12HR 7 Days Ref 0 Prov:Luz Ayon DO 01/11/17 Current Medications Medications (Trade) Dose Ordered Sig/Melissa Route Start Time Stop Time Status Last Admin (NS Flush) 2 ml UNSCH PRN IV FLUSH 02/19/17 19:45 02/20/17 17:20 (NS Flush) 2 ml BID IV FLUSH 02/19/17 21:00 02/26/17 10:53 (Zofran Inj) 4 mg Q6H PRN IVP 02/19/17 19:45 02/25/17 14:26 (Lovenox Inj) 40 mg Q24H SQ 02/20/17 09:00 Hold 02/22/17 10:17 (Narcan Inj) 0.4 mg UNSCH PRN IV 02/19/17 19:45 (Msir) 15 mg Q4H PRN PO 02/20/17 08:45 Hold (Morphine Inj) 2 mg Q2H PRN IV PUSH 02/20/17 09:15 02/26/17 06:05 (Cordarone) 200 mg DAILY PO 02/21/17 09:00 Hold (KlonoPIN) 0.5 mg Q12HR PO 02/20/17 13:00 Hold 02/20/17 14:11 (Cardizem Cd) 240 mg BID PO 02/20/17 21:00 Hold (Colace) 100 mg BID PO 02/20/17 21:00 Hold (Marinol) 5 mg BID PO 02/20/17 21:00 Hold (Duragesic 50 Mcg Patch.72 Hr) 1 patch Q72H TD 02/20/17 13:00 02/23/17 12:20 (Protonix) 40 mg DAILY PO 02/21/17 09:00 Hold (Senna Liq) 15 mg BID PO 02/20/17 21:00 Hold (Spiriva Inh) 18 mcg DAILY INH 02/21/17 09:00 02/26/17 10:54 (Effexor Xr) 225 mg DAILY PO 02/21/17 09:00 Hold Miscellaneous Information 1 Q3D TD 02/23/17 13:00 02/23/17 12:21 Lorazepam 0.25 mg 0.25 mg Q6H PRN IV PUSH 02/20/17 22:15 02/26/17 00:12 (D5-NS + KCl 20 Meq Inj) 1,000 ml @ 42 mls/hr [id number] PRN IV 02/20/17 22:15 02/21/17 04:26 Furosemide 20 mg 20 mg DAILY IV PUSH 02/21/17 09:00 02/26/17 10:53 Piperacillin Sod/ Tazobactam Sod 100 ml @ 200 mls/hr Q6HR IV 02/21/17 00:00 02/26/17 11:13 (Zithromax Inj/ NS 250 ml Inj) 250 ml @ 250 mls/hr Q24H IV 02/20/17 23:00 02/25/17 23:05 Miscellaneous Information Patient in critical care unit? Ass... Q361D XX 02/20/17 23:00 02/20/17 23:00 (D50w (Vial) Inj) 25 ml UNSCH PRN IV PUSH 02/20/17 23:15 (Glucagon Inj) 1 mg UNSCH PRN OTHER 02/20/17 23:15 Insulin Detemir 15 units 15 units Q12HR SQ 02/21/17 10:00 02/26/17 11:06 (NS 1000 ml Inj) 1,000 ml @ 100 mls/hr Q10H IV 02/21/17 10:00 02/26/17 10:51 (Reglan Inj) 5 mg Q8H PRN IV PUSH 02/22/17 08:30 02/22/17 08:56 (Pamela-Colace) 2 tab BID PO 02/22/17 21:00 02/26/17 10:51 (Pamela-Colace) 2 tab BID PRN PO 02/22/17 14:00 (Lactulose Liq) 30 ml TID PRN PO 02/22/17 14:00 (Dulcolax Ec) 5 mg DAILY PRN PO 02/22/17 14:00 (Milk Of Magnesia Liq) 30 ml Q6H PRN PO 02/22/17 14:00 (Diflucan) 100 mg DAILY PO 02/24/17 09:00 03/05/17 08:59 02/26/17 10:51 (Roxanol Liq) 10 mg Q4H PRN G-TUBE 02/26/17 02:00 02/26/17 07:07 (NovoLOG SUPPLEMENTAL SCALE) 1 Q4HR SQ 02/26/17 08:00 02/26/17 11:13 (SoluMEDROL INJ) 40 mg Q12H IV PUSH 02/26/17 18:00 (K-Phos) 1,000 mg Q12HR PO 02/26/17 09:00 02/26/17 10:52 (Mag-Ox) 400 mg DAILY PO 02/26/17 09:00 02/26/17 10:52 Family History He denies Social History Patient was born and raised in [place], he has been living in [place] since 2014, he lives with his Ilan Keith, has 2 kids, he is a , disabled, 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, he has 2 years of college Physical Exam Vital Signs Vital Signs Date Time Temp Pulse Resp B/P Pulse Ox O2 Delivery O2 Flow Rate FiO2 02/26/17 12:03 96.9 81 19 177/81 98 02/26/17 07:55 Nasal Cannula 1.00 I/O 02/25/17 02/25/17 02/26/17 08:00 16:00 00:00 Intake Total 1876 ml 2265 ml 720 ml Output Total 550 ml 1950 ml 850 ml Balance 1326 ml 315 ml -130 ml Mental Status Examination Appearance man, age appearing, acutely ill, calm, superficially cooperative Speech: Unremarkable Orientation: x3 Memory: Unremarkable Thought Process: Logical Thought Content: Unremarkable Hallucination Type: None Suicidal Ideation: No Previous Suicide Attempts: No Homicidal Ideation: No Previous Homicide Attempts: No Judgement: WNL Affect: Good Mood: Appropriate Motor Activity: Normal gait Assessment & Plan Problem List: (1) Major depressive disorder, recurrent episode, in partial remission Assessment & Plan: The patient is a 76-year-old man, domiciled with his in [place], , with psychiatric history of depression, 1 hospitalization here at [facility] in the [facility], 1 previous suicidal attempt, discharge of Effexor 225 milligrams daily and clonazepam 0.5 mg daily, medical history of DM, afib, COPD on home oxygen, GERD, CHF, hypothyroidism, 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 Casas, who presented to presents to the emergency room complaining of inability to eat or drink with failure to thrive. Patient consulted to psychiatry to assess depressive symptoms. On psychiatric evaluation patient endorses on and off depression, low energy, poor appetite, mostly related with current radiation therapy, pain medical illnesses decompensation. He endorses good response to Effexor 225 mg and clonazepam 0.5 mg twice a day. Patient denies suicidal and homicidal ideation, he denies visual and auditory hallucinations. Patient is fully oriented 3, no gross cognitive impairment observed.. Extensive psychoeducation, support and motivation provided. No psychiatric admission indicated at this moment. He can continue his current psychotropics in outpatient basis. Current depression is mostly the problem of ongoing stress of radiation therapy, pain and underlying medical illnesses. Patient seems to be coping appropriately with acute stressors. Consul appreciated. ICD Code: F33.41 Assessment & Plan Estimated LOS: Olayinka Duncan MD Feb 26, 2017 15:16
[2017-02-26] MEDS: ONDANSETRON HCL 4 MG/2 ML VIAL IVP PRN (16:48)
[2017-02-26] MEDS ORDERED: methylPREDNISolone SOD SUCC 40 MG/1 ML VIAL IV PUSH SCH (18:00)
== END 2017-02-26 19:00 | DRG 146 ==
LOC: NEDAMB 16:35 → NEDA 19:18 → NEPGCP 21:18 → HOCA 02-20 20:11 → HIME 02-20 22:45 → HIMW 02-20 22:45 → OBSVTOIN 02-21 16:07 → HIMN 02-23 17:00 → HOCB 02-25 17:39
PROVIDERS: ADMIT Hospitalist; ATTEND Hospitalist
PROC: 0DH63UZ Insertion of Feeding Device into Stomach, Percutaneous Approach (ICD-10-PCS; principal; 2017-02-23 14:25)
DX: C32.1 Malignant neoplasm of supraglottis (principal); E43 Unspecified severe protein-calorie malnutrition; J96.21 Acute and chronic respiratory failure with hypoxia; E87.2 Acidosis; E11.43 Type 2 diabetes mellitus with diabetic autonomic (poly)neuropathy; I48.92 Unspecified atrial flutter; K31.84 Gastroparesis; I50.9 Heart failure, unspecified; I11.0 Hypertensive heart disease with heart failure; I48.91 Unspecified atrial fibrillation; Z99.81 Dependence on supplemental oxygen; J44.1 Chronic obstructive pulmonary disease with (acute) exacerbation; R13.10 Dysphagia, unspecified; D64.9 Anemia, unspecified; E83.51 Hypocalcemia; R62.7 Adult failure to thrive; E03.9 Hypothyroidism, unspecified; F40.240 Claustrophobia; F41.1 Generalized anxiety disorder; G47.30 Sleep apnea, unspecified; G89.29 Other chronic pain; I25.10 Atherosclerotic heart disease of native coronary artery without angina pectoris; K21.0 Gastro-esophageal reflux disease with esophagitis; K22.4 Dyskinesia of esophagus; K29.70 Gastritis, unspecified, without bleeding; K59.00 Constipation, unspecified; M19.011 Primary osteoarthritis, right shoulder; Z51.5 Encounter for palliative care; Z79.01 Long term (current) use of anticoagulants; Z87.01 Personal history of pneumonia (recurrent); F33.41 Major depressive disorder, recurrent, in partial remission; F17.210 Nicotine dependence, cigarettes, uncomplicated
CPT/HCPCS: 36600; 71010; 73030; 74230; 80048; 80053; 81001; 82010; 82550; 82805; 82948; 83605; 83735; 83880; 84100; 84155; 84484; 85007; 85025; 85027; 85610; 85730; 87040; 87077; 87086; 87186; 87449; 87641; 87804; 93005; 94150; 94640; 94664; G0378; G8987-GP; G8988-GP; J0456; J0610; J0696; J1650; J1815; J1940; J2060; J2270; J2405; J2543; J2765; J2920; J2930; J3480; J7030; J7050

== ENCOUNTER 2017-02-27 20:25 | Inpatient (IN) | payer OTHER, MEDICARE ==
[~2017-02-27] VITALS: Ht 182.9 cm; Wt 86.0 kg
[~2017-02-27 20:25] MED LIST changes: -BACI500O2 TOP; +CLON.5 PO; -CLON0.5T PO; +FLOR250C PO; +FURO1TAB62 PO; +K-PHTAB PO; +LEVA750T PO; -LEVO.2 PO; -METH-759; +NICO7DIS2 T-DERMAL; -NOVOINJ3 SQ; -NYST100084 TOPICAL; +OYST500T25 PO; -POTA10CA PO; +PRED10PA PO; +SULF1TAB23 PO; +VITA100018 PO; +ZITHTAB PO; +ZOFR8TAB PO
[2017-02-27 20:33] VITALS: BP 167/77; PULSE 80; RESP 18; TEMP 98.9; O2SAT 100
--- NOTE | 2017-02-27 20:37 | PD ---
HPI Chief Complaint: AMS Time Seen by Provider: 20:37 Travel History International Travel<30 days: No Contact w/Intl Traveler<30days: No Traveled to known affect area: No History of Present Illness HPI 76-year-old male with a history of CAD, CHF, hypertension, A. fib, COPD, throat cancer, recently hospitalized and discharged yesterday. Patient had a PEG placed. She is staying in a custodial facility. He was sent here today for altered mental status. Report is that the told [facility] that the patient was last seen "normal" yesterday. Patient is arousable. States that he is having stomach pain. Has Zacarias catheter in place as well as PEG tube. He is lethargic. He is otherwise a poor historian. PFSH Past Medical History Hx Anticoagulant Therapy: Yes (XARELTO) Arthritis: Yes Asthma: No Atrial Fibrillation: Yes Autoimmune Disease: No Blood Disorders: No Anxiety: Yes Depression: No Heart Rhythm Problems: Yes (afib- aflutter) Cancer: Yes (Throat cancer) Cardiovascular Problems: Yes High Cholesterol: No Chemotherapy: No Chest Pain: Yes Congestive Heart Failure: Yes COPD: Yes Cerebrovascular Accident: No Diabetes: Yes (Type 1 since age 23.) Diminished Hearing: No Endocrine: Yes Gastrointestinal Disorders: No (GASTROPARESIS) GERD: Yes Genitourinary: No Hepatitis: No Hiatal Hernia: Yes Hypertension: Yes Immune Disorder: No Implanted Vascular Access Dvce: No Musculoskeletal: Yes Neurologic: Yes Psychiatric: No Reproductive: No Respiratory: Yes Radiation Therapy: No Sleep Apnea: Yes Thyroid Disease: Yes Ulcer: No Past Surgical History Abdominal Surgery: Yes (gallbladder removal) AICD: No Body Medical Devices: left shoulder metal plate with approx. 16 screws Cardiac Surgery: Yes (Ablation x2, cath) Cholecystectomy: Yes Ear Surgery: No Endocrine Surgery: No Eye Surgery: Yes (cataracts) Genitourinary Surgery: No Gynecologic Surgery: No Joint Replacement: Yes (Left shoulder) Neurologic Surgery: No (R leg) Oral Surgery: Yes (tonsilectomy) Pacemaker: No Thoracic Surgery: No Tonsillectomy: Yes Other Surgery: Yes Social History Alcohol Use: No Tobacco Use: Yes Substance Use: No Allergies-Medications (Allergen,Severity, Reaction): Coded Allergies: Flagyl (Verified Allergy, Severe, 01/27/17) Floxcin (Verified Allergy, Severe, 01/27/17) Latex (Verified Allergy, Severe, 01/27/17) Adhesives (Verified Allergy, Mild, 01/27/17) *MDRO Multi-Drug Resistant Organism (Verified Adverse Reaction, Unknown, ) 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/17 Reported Meds & Prescriptions Reported Meds & Active Scripts Active Sulfamethoxazole-Trimethoprim 800-160 Mg Tab 1 Tab PO BID Levaquin (Levofloxacin) 750 Mg Tab 750 Mg PO DAILY K-Phos (Potassium Phosphate Monobasic) 500 Mg Tab 500 Mg PO PCHS Prednisone (21) 10 mg tab Dose Pack (Prednisone) 10 Mg Pack 10 Mg PO DIRECTED Klonopin (Clonazepam) 0.5 Mg Tab 0.5 Mg PO Q12HR Morphine IR (Morphine Sulfate) 15 Mg Tab 15 Mg PO Q4H PRN Duragesic Patch 72 HR (Fentanyl) 50 Mcg/Hr Patch 1 Patch TD Q72H Marinol (Dronabinol) 5 Mg Cap 5 Mg PO BID Effexor XR 24 HR (Venlafaxine HCl) 75 Mg Cap 225 Mg PO DAILY Lactulose Liq (Lactulose) 10 Gm/15 Ml Soln 30 Ml PO DAILY Levemir Flextouch Pen Inj (Insulin Detemir) 300 unit/3 ML Pen 15 Units SQ Q12HR NEB Amiodarone (Amiodarone HCl) 200 Mg Tab 200 Mg PO DAILY Duoneb (Ipratropium-Albuterol Neb) 0.5-2.5 Mg/3 Ml Neb 1 Ampule INH QID NEB Flomax (Tamsulosin HCl) 0.4 Mg Cap 0.4 Mg PO HS Cardizem CD 24 HR (Diltiazem CD 24 HR) 240 Mg Caper 240 Mg PO BID Zantac (Ranitidine HCl) 150 Mg Tab 150 Mg PO BID Protonix (Pantoprazole Sodium) 40 Mg Tab 40 Mg PO DAILY Atorvastatin (Atorvastatin Calcium) 40 Mg Tab 40 Mg PO HS Spiriva Handihaler (Tiotropium Inh) 18 Mcg Cap 18 Mcg INH DAILY 1 capsule = 18 mcg Xarelto (Rivaroxaban) 20 Mg Tab 20 Mg PO DAILY Reported Zithromax Z-Joe (Azithromycin) 250 Mg Dspk 250 Mg PO DIRECTED 5 Days 500 MG (2 tabs) day 1, then 1 tab days 2-5. Florastor (Saccharomyces Boulardii) 250 Mg Cap 250 Mg PO BID 10 Days Novolog Inj (Insulin Aspart) 1,000 Unit/10 Ml Vial 0 SQ ACHS Sliding Scale: 150-199=1 UNIT, 200-249=3 UNITS, 250-299=5 UNITS, 300-347=7 UNITS, >349=9 UNITS Levothyroxine (Levothyroxine Sodium) 25 Mcg Tab 225 Mcg PO DAILY Take 1 tablet (25mcg) with 200mcg tablet for a total dose of 225mcg Zofran (Ondansetron HCl) 8 Mg Tab 8 Mg PO Q8HR PRN Lasix (Furosemide) 20 Mg Tab 20 Mg PO DAILY 3 Days Vitamin D3 (Cholecalciferol) 1,000 Unit Tab 2,000 Units PO DAILY Oyster Shell 500 Mg Tab 500 Mg PO DAILY Nicotine Patch (Nicotine) Unknown Strength Patch 1 Patch T-DERMAL DAILY Senna (Sennosides) 8.8 Mg/5 Ml Syp 15 Mg PO BID Trazodone (Trazodone HCl) 100 Mg Tab 200 Mg PO HS Multivitamin Adults (Multiple Vitamins W/ Minerals) 1 Tab 1 Tab PO DAILY Docusate Sodium 100 Mg Cap 100 Mg PO BID Proair Respiclick Inh (Albuterol Sulfate) 90 Mcg/Act Aerp 2 Puff INH Q4HR PRN Review of Systems ROS Limitations: Altered Mental Status, Poor Historian Except as stated in HPI: all other systems reviewed are Neg Physical Exam Exam Limitations: Altered Mental Status Narrative GENERAL: Well-nourished male patient, lying in bed with his eyes closed, in no acute distress area patient is arousable. SKIN: Focused skin assessment warm/dry. HEAD: Atraumatic. Normocephalic. EYES: Pupils equal and round. No scleral icterus. No injection or drainage. ENT: No nasal bleeding or discharge. Mucous membranes pink and moist. NECK: Trachea midline. No JVD. CARDIOVASCULAR: Regular rate and rhythm. No murmur appreciated. RESPIRATORY: No accessory muscle use. Coarse, diminished. Breath sounds equal bilaterally. GASTROINTESTINAL: Abdomen soft, non-tender, nondistended. Left upper quadrant PEG tube noticed in place. Hepatic and splenic margins not palpable. MUSCULOSKELETAL: No obvious deformities. No clubbing. No cyanosis. No edema. NEUROLOGICAL: Lethargic, arousable. No obvious cranial nerve deficits. Motor grossly within normal limits. Normal speech. Data Data Last Documented VS Vital Signs Date Time Temp Pulse Resp B/P Pulse Ox O2 Delivery O2 Flow Rate FiO2 02/27/17 22:27 73 18 167/77 100 Nasal Cannula 2 02/27/17 20:33 98.9 Orders Electrocardiogram (02/27/17 20:43) Complete Blood Count With Diff (02/27/17 20:43) Comprehensive Metabolic Panel (02/27/17 20:43) Creatine Kinase (Cpk) (02/27/17 20:43) Prothrombin Time / Inr (Pt) (02/27/17 20:43) Act Partial Throm Time (Ptt) (02/27/17 20:43) Troponin I (02/27/17 20:43) Thyroid Stimulating Hormone (02/27/17 20:43) Lactic Acid Sepsis Protocol (02/27/17 20:43) Urinalysis - C+S If Indicated (02/27/17 20:43) Blood Culture (02/27/17 20:43) Chest, Single Ap (02/27/17 20:43) Ct Brain W/O Iv Contrast(Rout) (02/27/17 20:43) Blood Glucose (02/27/17 20:43) Ecg Monitoring (02/27/17 20:43) Iv Access Insert/Monitor (02/27/17 20:43) Oximetry (02/27/17 20:43) Sodium Chloride 0.9% Flush (Ns Flush) (02/27/17 20:45) Sodium Chlor 0.9% 1000 Ml Inj (Ns 1000 M (02/27/17 20:43) Abdomen, Upright Only (02/27/17 ) Urine Culture (02/27/17 21:10) Ceftriaxone Inj (Rocephin Inj) (02/27/17 21:57) Azithromycin Inj (Zithromax Inj) (02/27/17 21:57) Beta Hydroxybutyrate (Acetone) (02/27/17 22:33) Insulin Human Regular Inj (Novolin R Inj (02/27/17 22:45) Labs Laboratory Tests Test 02/27/17 02/27/17 21:00 21:10 White Blood Count 16.6 TH/MM3 Red Blood Count 4.43 MIL/MM3 Hemoglobin 12.4 GM/DL Hematocrit 38.1 % Mean Corpuscular Volume 86.0 FL Mean Corpuscular Hemoglobin 27.9 PG Mean Corpuscular Hemoglobin 32.4 % Concent Red Cell Distribution Width 18.8 % Platelet Count 287 TH/MM3 Mean Platelet Volume 8.0 FL Neutrophils (%) (Auto) 95.5 % Lymphocytes (%) (Auto) 1.4 % Monocytes (%) (Auto) 2.8 % Eosinophils (%) (Auto) 0.0 % Basophils (%) (Auto) 0.3 % Neutrophils # (Auto) 15.9 TH/MM3 Lymphocytes # (Auto) 0.2 TH/MM3 Monocytes # (Auto) 0.5 TH/MM3 Eosinophils # (Auto) 0.0 TH/MM3 Basophils # (Auto) 0.0 TH/MM3 CBC Comment AUTO DIFF Prothrombin Time 11.3 SEC Prothromb Time International 1.0 RATIO Ratio Activated Partial 22.9 SEC Thromboplast Time Sodium Level 131 MEQ/L Potassium Level 4.5 MEQ/L Chloride Level 95 MEQ/L Carbon Dioxide Level 28.4 MEQ/L Anion Gap 8 MEQ/L Blood Urea Nitrogen 18 MG/DL Creatinine 0.71 MG/DL Estimat Glomerular Filtration 108 ML/MIN Rate Random Glucose 555 MG/DL Lactic Acid Level 1.3 mmol/L Calcium Level 6.7 MG/DL Protein Corrected Calcium 8.0 MG/DL Total Bilirubin 0.5 MG/DL Aspartate Amino Transf 13 U/L (AST/SGOT) Alanine Aminotransferase 37 U/L (ALT/SGPT) Alkaline Phosphatase 83 U/L Total Creatine Kinase 48 U/L Troponin I 0.02 NG/ML Total Protein 4.6 GM/DL Albumin 1.9 GM/DL Thyroid Stimulating Hormone 8.260 uIU/ML 3rd Gen Urine Color LIGHT-YELLOW Urine Turbidity HAZY Urine pH 8.0 Urine Specific [place] 1.019 Urine Protein TRACE mg/dL Urine Glucose (UA) 1000 mg/dL Urine Ketones 10 mg/dL Urine Occult Blood SMALL Urine Nitrite NEG Urine Bilirubin NEG Urine Urobilinogen LESS THAN 2.0 MG/DL Urine Leukocyte Esterase LARGE Urine RBC 75 /hpf Urine WBC 44 /hpf Urine Squamous Epithelial <1 /hpf Cells Urine Bacteria RARE /hpf Urine Yeast (Budding) MANY Microscopic Urinalysis Comment CATH-CULTURE IND MDM Medical Decision Making Medical Screen Exam Complete: Yes Emergency Medical Condition: Yes Medical Record Reviewed: Yes Differential Diagnosis Electrolyte abnormality versus sepsis versus dehydration versus metastatic disease versus failure to thrive Narrative Course 76-year-old male presents to emergency department for evaluation. Patient appears without distress. He is lethargic, arousable. He is a poor historian. Patient does have Zacarias catheter in place as well as left upper quadrant PEG tube. Sepsis workup was initiated. CBC is with leukocytosis of 16.6. This is an increase since yesterday. Neutrophilia 15.9. Chemistry is still pending. Chest x-ray shows left lower lobe consolidation, probable pneumonia. The patient is being treated for pneumonia outpatient as he was in the hospital. He is currently on Levaquin. CT imaging the brain shows mild cerebral atrophy and periventricular white matter small vessel ischemic changes bilaterally. No acute infarct, acute hemorrhage, mass effect, or extra-axial fluid collections. There is mucous retention cyst within the maxillary sinuses bilaterally mucosal thickening within the sphenoid sinuses bilaterally. 2230 chemistry has resulted. Patient is with mild hyponatremia 131. Hyperglycemia of 555. Protein corrected calcium of 8.0. Lactic acid is 3. TSH is 8.260. Patient is given 10 units regular insulin IV. Potassium is 4.5 not be given any additional potassium at this time however this will need to be monitored. A call has been placed to [facility] for admission. Diagnosis Primary Impression: Altered mental status Qualified Code: R41.82 - Altered mental status, unspecified altered mental status type Additional Impressions: Pneumonia Qualified Code: J18.1 - Pneumonia of left lower lobe due to infectious organism UTI (urinary tract infection) Qualified Code: T83.511D - Urinary tract infection associated with indwelling urethral catheter, subsequent encounter Hyperglycemia Failure to thrive in adult Hypothyroidism History of throat cancer Admitting Information Admitting Physician Requests: Admit Condition: Stable Loyda Polk Feb 27, 2017 20:37
[2017-02-27] MEDS ORDERED: SODIUM CHLOR 0.9% 1000 ML INJ 1,000 ML IV SCH (20:43)
[2017-02-27] MEDS ORDERED: SODIUM CHLORIDE 0.9% FLUSH 10 ML FLUSH IVF PRN (20:45)
--- NOTE | 2017-02-27 21:10 | RADRPT ---
EXAM DATE/TIME: 02/27/2017 20:58 [facility] COMPARISON: No previous studies available for comparison. INDICATIONS : Altered mental status. RADIATION DOSE: 45.49 CTDIvol (mGy) MEDICAL HISTORY : Non-responsive. SURGICAL HISTORY : Non-responsive. ENCOUNTER: Initial ACUITY: 1 day PAIN SCALE: Non-responsive LOCATION: cranial TECHNIQUE: Multiple contiguous axial images were obtained of the head. Using automated exposure control and adj ustment of the mA and/or kV according to patient size, radiation dose was kept as low as reasonably a chievable to obtain optimal diagnostic quality images. FINDINGS: Mild cerebral atrophy is noted. Mild periventricular and subcortical white matter small vessel ische karlie changes are noted bilaterally. There is no acute infarct, acute hemorrhage, mass effect or extra- axial fluid collections. Mucus retention cysts are noted within the maxillary sinuses bilaterally. Mild mucosal thickening is noted within the sphenoid sinuses bilaterally also. CONCLUSION: 1. Mild cerebral atrophy and periventricular white matter small vessel ischemic changes bilaterally. 2. No acute infarct, acute hemorrhage, mass effect or extra-axial fluid collections. 3. Mucus retention cysts within the maxillary sinuses bilaterally and mucosal thickening within the s phenoid sinuses bilaterally. David Tafoya MD on February 27, 2017 at 21:02 Board Certified Radiologist. This report was verified electronically.
--- NOTE | 2017-02-27 21:11 | RADRPT ---
EXAM DATE/TIME: 02/27/2017 20:57 [facility] COMPARISON: CHEST SINGLE AP, February 20, 2017, 22:24. INDICATIONS : Short of breath. MEDICAL HISTORY : Chronic obstructive pulmonary disease. Cardiovascular disease. SURGICAL HISTORY : Left shoulder surgery. ENCOUNTER: Initial ACUITY: 4 - 6 days PAIN SCORE: 0/10 LOCATION: Bilateral chest FINDINGS: Focal patchy opacity is noted within the left lung base consistent with probable pneumonia. Small lef t pleural effusion is noted. The right lung is clear. The heart is stable. CONCLUSION: Focal left basilar patchiness consistent with probable pneumonia. Small left pleural effusion. David Tafoya MD on February 27, 2017 at 21:07 Board Certified Radiologist. This report was verified electronically.
[2017-02-27 21:35] LABS: AUTOMATED NEUTROPHIL # 15.9 TH/MM3 (1.8-7.7); BASOPHIL % 0.3 % (0.0-2.0); HEMATOCRIT 38.1 % (39.0-51.0); LYMPH % 1.4 % (9.0-44.0); LYMPHOCYTE # 0.2 TH/MM3 (1.0-4.8); MEAN CORPUSCULAR HEMOGLOBIN 27.9 PG (27.0-34.0); MEAN CORPUSCULAR HGB CONC 32.4 % (32.0-36.0); MONO % 2.8 % (0.0-8.0); NEUT % 95.5 % (16.0-70.0); PLATELET COUNT 287 TH/MM3 (150-450); RED BLOOD COUNT 4.43 MIL/MM3 (4.50-5.90); RED CELL DISTRIBUTION WIDTH 18.8 % (11.6-17.2); WHITE BLOOD COUNT 16.6 TH/MM3 (4.0-11.0)
[2017-02-27 21:37] LABS: BACTERIA, URINE RARE /hpf; BLOOD, URINE SMALL (NEG); GLUCOSE,URINE 1000 mg/dL (NEG); KETONE, URINE 10 mg/dL (NEG); NITRITE,URINE NEG (NEG); SQUAMOUS EPITHELIAL CELL URINE <1 /hpf (0-5); URINE COLOR LIGHT-YELLOW (YELLW/STRAW)
[2017-02-27 21:39] LABS: COMMENT (UR) CATH-CULTURE IND; CULTURE IF INDICATED CATH CULTURE IND
--- NOTE | 2017-02-27 21:42 | RADRPT ---
EXAM DATE/TIME: 02/27/2017 21:05 [facility] COMPARISON: No previous studies available for comparison. INDICATIONS : Abdominal pain. MEDICAL HISTORY : None. SURGICAL HISTORY : None. ENCOUNTER: Initial ACUITY: 1 day PAIN SCORE: 5/10 LOCATION: Bilateral abdomen FINDINGS: Limited upright single view of the abdomen was performed. There is no free intraperitoneal air noted . A small left pleural effusion is noted. Contrast is noted throughout the stomach, small intestine and colon. CONCLUSION: 1. No free intraperitoneal air. 2. Small left pleural effusion. 3. Contrast noted throughout the stomach, small intestine and colon. David Tafoya MD on February 27, 2017 at 21:35 Board Certified Radiologist. This report was verified electronically.
[2017-02-27 21:43] LABS: APTT (PATIENT) 22.9 SEC (24.3-30.1); PROTHROMBIN TIME - PATIENT 11.3 SEC (9.8-11.6)
[2017-02-27 21:48] LABS: HEMO FLAGS AUTO DIFF
[2017-02-27] MEDS ORDERED: AZITHROMYCIN INJ 500 MG in SODIUM CHLOR 0.9% 250 ML INJ 250 ML IV STA (21:57)
[2017-02-27] MEDS ORDERED: cefTRIAXone INJ 2,000 MG in SODIUM CHLORIDE 0.9% INJ 100 ML IV STA (21:57)
[2017-02-27 22:06] LABS: BICARBONATE 28.4 MEQ/L (21.0-32.0); POTASSIUM 4.5 MEQ/L (3.5-5.1); TOTAL BILIRUBIN ADULT 0.5 MG/DL (0.2-1.0)
[2017-02-27 22:27] VITALS: BP 167/77; PULSE 73; RESP 18; O2SAT 100
[2017-02-27 22:33] LABS: BANDS 6 % (0-6); METAMYELOCYTES 1 % (0-1); MYELOCYTES 2 % (0-0); NEUTROPHIL # MANUAL DIFF 15.3 TH/MM3 (1.8-7.7); POLYS (SEG NEUTROPHILS) 83 % (16-70); WBC DIFF SAMPLE 100
[2017-02-27 22:34] LABS: BURR CELLS 1+ (NORMAL); OVALOCYTES 1+ (NORMAL); TOXIC VACUOLATION PRESENT (NONE SEEN)
[2017-02-27 22:35] LABS: PLATELET ESTIMATE SMEAR NORMAL (NORMAL); PLATELET MORPHOLOGY NORMAL (NORMAL); SCAN/DIFF FINAL DIFF MANUAL
[2017-02-27] MEDS ORDERED: Vancomycin Consult Pharmacy 1 EA OTHER SCH (22:45)
[2017-02-27] MEDS ORDERED: fentaNYL 50 MCG/HR PATCH T-DERMAL SCH (22:45)
[2017-02-27] MEDS ORDERED: BISACODYL 10 MG SUPP RECTAL PRN (22:45)
[2017-02-27] MEDS ORDERED: GLUCAGON 1 MG/ML VIAL OTHER PRN (22:45)
[2017-02-27] MEDS ORDERED: ALBUTEROL INH PRN (22:45)
[2017-02-27] MEDS ORDERED: INSULIN HUMAN REGULAR 1,000 UNITS/10 ML VIAL IV PUSH ONE (22:45)
[2017-02-27] MEDS ORDERED: DEXTROSE 50% IN WATER 50 ML VIAL(D50) IV PUSH PRN (22:45)
[2017-02-27] MEDS ORDERED: ACETAMINOPHEN 325 MG TAB PO PRN (22:45)
--- NOTE | 2017-02-27 22:47 | HHI.HP ---
HPI Service 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 Per report, pt noted by to be acting more confused and lethargic. Unable to obtain much history from patient. Multiple admissions and prolonged hospitalizations, initially for 3rd degree monroy suffered while smoking on Oxygen, tx to [facility] for burn therapy, returned to [place] to complete therapy. Admitted again for Suicide Attempt, Obstructive Jaundice, Encephalopathy, Sepsis, PNA/UTI, diagnosed w/ new onset A- fib. D/c'd to Inpatient Psych, re-admitted to medicine 02/05-02/26/17 w/ respiratory failure, found to have Squamous Cell Ca of the Epiglottis w/ plans for radiotherapy. D/c'd to SNF yesterday, however sent to ER today for AMS and increased lethargy. On arrival, BP 167/77, HR 80, O2 sat 100% on 2L NC, Afebrile. WBC 16.6, previously 13.9 on 02/26/17. Chemistry essentially at baseline. BS 555. Ca 6.7. UA positive for UTI. CXR with focal left basilar patchiness consistent with pneumonia. CT Head with no acute findings. Abdominal X-ray with no free intraperitoneal air. S/p Blood Cultures, Rocephin/ Zithro in ER. Review of Systems Except as stated in HPI: all other systems reviewed are Neg Past Family Social History Past Medical History PMH: HTN, A. 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 No h/o DM or CAD Social History PAST SOCIAL HISTORY: Negative for alcohol or drugs. Positive for tobacco. Physical Exam Vital Signs Vital Signs Date Time Temp Pulse Resp B/P Pulse Ox O2 Delivery O2 Flow Rate FiO2 02/27/17 22:27 73 18 167/77 100 Nasal Cannula 2 02/27/17 20:39 Nasal Cannula 2 02/27/17 20:33 98.9 80 18 167/77 100 Physical Exam PE: GENERAL: Elderly white male in no acute distress, lethargic but arousable, answers few questions. HEENT: PERRLA, EOMI. No scleral icterus or conjunctival pallor. No lid lag or facial droop. CARDIOVASCULAR: Regular rate and rhythm. No obvious murmurs to auscultation. No chest tenderness to palpation. RESPIRATORY: No obvious rhonchi or wheezing. Clear to auscultation. Breath sounds equal bilaterally. GASTROINTESTINAL: Abdomen soft, non-tender, nondistended. BS normal. PEG tube in place, no surrounding erythema. MUSCULOSKELETAL: Extremities without clubbing, cyanosis, or edema. No obvious deformities. NEUROLOGICAL: Lethargic but arousable. No focal neurologic deficits. Moving both upper and lower extremities spontaneously. Laboratory Laboratory Tests Test 02/27/17 02/27/17 21:00 21:10 White Blood Count 16.6 Red Blood Count 4.43 Hemoglobin 12.4 Hematocrit 38.1 Mean Corpuscular Volume 86.0 Mean Corpuscular Hemoglobin 27.9 Mean Corpuscular Hemoglobin 32.4 Concent Red Cell Distribution Width 18.8 Platelet Count 287 Mean Platelet Volume 8.0 Neutrophils (%) (Auto) 95.5 Lymphocytes (%) (Auto) 1.4 Monocytes (%) (Auto) 2.8 Eosinophils (%) (Auto) 0.0 Basophils (%) (Auto) 0.3 Neutrophils # (Auto) 15.9 Lymphocytes # (Auto) 0.2 Monocytes # (Auto) 0.5 Eosinophils # (Auto) 0.0 Basophils # (Auto) 0.0 CBC Comment AUTO DIFF Differential Total Cells 100 Counted Neutrophils % (Manual) 83 Band Neutrophils % 6 Monocytes % 8 Neutrophils # (Manual) 15.3 Metamyelocytes 1 Myelocytes 2 Differential Comment FINAL DIFF MANUAL Toxic Vacuolation PRESENT Platelet Estimate NORMAL Platelet Morphology Comment NORMAL Ovalocytes 1+ Jania Cells 1+ Prothrombin Time 11.3 Prothromb Time International 1.0 Ratio Activated Partial 22.9 Thromboplast Time Sodium Level 131 Potassium Level 4.5 Chloride Level 95 Carbon Dioxide Level 28.4 Anion Gap 8 Blood Urea Nitrogen 18 Creatinine 0.71 Estimat Glomerular Filtration 108 Rate Random Glucose 555 Lactic Acid Level 1.3 Calcium Level 6.7 Protein Corrected Calcium 8.0 Total Bilirubin 0.5 Aspartate Amino Transf 13 (AST/SGOT) Alanine Aminotransferase 37 (ALT/SGPT) Alkaline Phosphatase 83 Total Creatine Kinase 48 Troponin I 0.02 Total Protein 4.6 Albumin 1.9 Thyroid Stimulating Hormone 8.260 3rd Gen Urine Color LIGHT-YELLOW Urine Turbidity HAZY Urine pH 8.0 Urine Specific [place] 1.019 Urine Protein TRACE Urine Glucose (UA) 1000 Urine Ketones 10 Urine Occult Blood SMALL Urine Nitrite NEG Urine Bilirubin NEG Urine Urobilinogen LESS THAN 2.0 Urine Leukocyte Esterase LARGE Urine RBC 75 Urine WBC 44 Urine Squamous Epithelial <1 Cells Urine Bacteria RARE Urine Yeast (Budding) MANY Microscopic Urinalysis Comment CATH-CULTURE IND Date/Time Procedure Status Source Growth 02/27/17 21:10 Urine Culture Worksheet Urine Catheterized Urine Pending 02/27/17 21:00 Aerobic Blood Culture Received Blood Peripheral Pending 02/27/17 21:00 Anaerobic Blood Culture Received Blood Peripheral Pending Result Diagram: 02/27/17209902/27/17 2100 Assessment and Plan Problem List: (1) Encephalopathy ICD Code: G93.40 Status: Acute (2) PNA (pneumonia) ICD Code: J18.9 Status: Acute (3) UTI (urinary tract infection) ICD Code: N39.0 Status: Acute (4) Hypocalcemia ICD Code: E83.51 Status: Acute (5) A-fib ICD Code: I48.91 Status: Acute (6) 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 Encephalopathy: Unclear etiology, likely related to infectious process. CT Head w/ no acute findings, images reviewed by me. Multiple admits w/ prolonged hospitalization and episodes of encephalopathy. Will monitor, treat underlying infections. 2. PNA: CXR w/ focal left basilar patchiness consistent w/ pneumonia, images reviewed by me. S/p Rocephin/Zithro in ER, however will continue w/ broad spectrum coverage for HCAP in light of multiple hospitalizations. DuoNeb prn. 3. UTI: Persistent, recent UTI 02/22/17, will continue w/ IV Abx, IVF for hydration. 4. Hypocalcemia: Ca 6.7, will replace and recheck in am. 5. A-fib: Controlled. Resume home Cardizem, Amiodarone and Xarelto. 6. Squamous Cell CA of Epiglottis: s/p eval by Radiation Oncology, plan for radiotherapy. S/p PEG tube, continue w/ diet as tolerated. 7. DM: Uncontrolled. BS 555, no evidence of acidosis. Sliding scale w/ Accu- Cheks, resume home Levemir once taking adequate PO. 8. DVT Prophylaxis: On Xarelto. 9. Social work for d/c planning as needed 10. Case discussed w/ ER physician at length. Physician Certification 2 Midnight Certification Type: Admission for Inpatient Services Order for Inpatient Services The services are ordered in accordance with Medicare regulations or non- Medicare payer requirements, as applicable. In the case of services not specified as inpatient-only, they are appropriately provided as inpatient services in accordance with the 2-midnight benchmark. Estimated LOS (days): 2 days is the estimated time the patient will need to remain in the hospital, assuming treatment plan goals are met and no additional complications. Post-Hospital Plan: Not yet determined Problem Qualifiers (1) UTI (urinary tract infection): Qualified Code: T83.511D - Urinary tract infection associated with indwelling urethral catheter, subsequent encounter Estella Meyers MD Feb 27, 2017 22:47
[2017-02-27] MEDS ORDERED: CALCIUM GLUCONATE 10% 1 GM/10 ML VIAL IV PUSH ONE (23:00)
[2017-02-27 23:40] VITALS: BP 142/67; PULSE 75; RESP 20; O2SAT 100
[2017-02-27] MEDS: SODIUM CHLOR 0.9% 1000 ML INJ 1,000 ML IV SCH (23:41)
[2017-02-28] VITALS (9 sets, daily range): BP systolic 110–177; BP diastolic 53–80; PULSE 71–76; RESP 18–19; TEMP 96.8–98.3; O2SAT 95–100
[2017-02-28] MEDS ORDERED: CALCIUM GLUCONATE INJ 1 GM in DEXTROSE 5% IN WATER 100ML INJ 100 ML IV ONE ×2
[2017-02-28] MEDS ORDERED: VANCOMYCIN INJ 2,000 MG in SODIUM CHLORID 0.9% 500 ML INJ 500 ML IV ONE ×2
[2017-02-28] MEDS: fentaNYL 50 MCG/HR PATCH T-DERMAL SCH
[2017-02-28] MEDS: INSULIN ASPART SUPPLEMENTAL SCALE SQ SCH ×4 (07:00→21:00)
[2017-02-28 08:04] LABS: AUTOMATED NEUTROPHIL # 16.3 TH/MM3 (1.8-7.7); BASOPHIL % 0.1 % (0.0-2.0); EOSINOPHIL % 0.1 % (0.0-4.0); HEMATOCRIT 41.5 % (39.0-51.0); HEMO FLAGS AUTO DIFF; LYMPH % 2.8 % (9.0-44.0); LYMPHOCYTE # 0.5 TH/MM3 (1.0-4.8); MEAN CELL VOLUME 84.6 FL (80.0-100.0); MEAN CORPUSCULAR HEMOGLOBIN 27.1 PG (27.0-34.0); MONO % 5.7 % (0.0-8.0); NEUT % 91.3 % (16.0-70.0); PLATELET COUNT 250 TH/MM3 (150-450); RED CELL DISTRIBUTION WIDTH 18.9 % (11.6-17.2); WHITE BLOOD COUNT 17.9 TH/MM3 (4.0-11.0)
[2017-02-28 08:25] LABS: BICARBONATE 27.5 MEQ/L (21.0-32.0); CALCIUM-PROTEIN CORRECTED 8.3 MG/DL (8.5-10.1); POTASSIUM 4.8 MEQ/L (3.5-5.1); TOTAL BILIRUBIN ADULT 0.4 MG/DL (0.2-1.0)
[2017-02-28] MEDS: DILTIAZEM-CD 240 MG CAP ER PO SCH ×2 (08:35→21:09)
[2017-02-28] MEDS: FAMOTIDINE 20 MG TAB PO SCH ×2 (08:35→21:10)
[2017-02-28] MEDS: DOCUSATE SODIUM 100 MG CAP PO SCH ×2 (08:35→21:10)
[2017-02-28] MEDS: clonazePAM 0.5 MG TAB PO SCH ×2 (08:35→21:10)
[2017-02-28] MEDS: AMIODARONE 200 MG TAB PO SCH (08:39)
[2017-02-28] MEDS: CEFEPIME INJ 1,000 MG in SODIUM CHLORIDE 0.9% INJ 100 ML IV SCH ×2 (08:43→21:09)
[2017-02-28] MEDS: RIVAROXABAN 20 MG TAB PO SCH (08:45)
[2017-02-28] MEDS: SODIUM CHLORIDE 0.9% FLUSH 10 ML FLUSH IV FLUSH SCH ×2 (08:47→21:00)
[2017-02-28] MEDS: VENLAFAXINE HCL XR 75 MG CAP PO SCH (08:47)
[2017-02-28 09:08] LABS: ACANTHOCYTES 1+ (NORMAL); OVALOCYTES 1+ (NORMAL)
[2017-02-28 09:09] LABS: PLATELET ESTIMATE SMEAR NORMAL (NORMAL); PLATELET MORPHOLOGY NORMAL (NORMAL); SCAN/DIFF AUTO DIFF CONFIRMED
--- NOTE | 2017-02-28 11:05 | HHI.PR ---
Subjective Remarks Appears in nad, sleepy, alert and oriented x 2 name, location. Feels tired, takes a long time to answer questions. Appear depressed. No n/v/d/c. Objective Vitals Vital Signs Date Time Temp Pulse Resp B/P Pulse Ox O2 Delivery O2 Flow Rate FiO2 02/28/17 09:07 96.8 75 19 164/79 100 02/28/17 06:57 72 02/28/17 04:45 98.3 71 18 177/80 99 02/28/17 02:30 69 18 136/65 100 Nasal Cannula 3 02/28/17 01:34 73 18 129/59 100 Nasal Cannula 3 02/27/17 23:40 75 20 142/67 100 Nasal Cannula 3 02/27/17 22:27 73 18 167/77 100 Nasal Cannula 2 02/27/17 20:39 Nasal Cannula 2 02/27/17 20:33 98.9 80 18 167/77 100 I/O 02/27/17 02/27/17 02/27/17 02/28/17 02/28/17 02/28/17 07:00 15:00 23:00 07:00 15:00 23:00 Output Total 600 ml 2000 ml Balance -600 ml -2000 ml Output Urine Total 600 ml 2000 ml # Bowel Movements 1 Result Diagram: 02/28/1728 02/28/17727 Imaging Last Impressions Head CT 02/27/172042 Signed Impressions: Service Date/Time: Monday, February 27, 2017 20:58 - CONCLUSION: 1. Mild cerebral atrophy and periventricular white matter small vessel ischemic changes bilaterally. 2. No acute infarct, acute hemorrhage, mass effect or extra- axial fluid collections. 3. Mucus retention cysts within the maxillary sinuses bilaterally and mucosal thickening within the sphenoid sinuses bilaterally. David Tafoya MD Chest X-Ray 02/27/172042 Signed Impressions: Service Date/Time: Monday, February 27, 2017 20:57 - CONCLUSION: Focal left basilar patchiness consistent with probable pneumonia. Small left pleural effusion. David Tafoya MD Abdomen X-Ray 02/27/17 0000 Signed Impressions: Service Date/Time: Monday, February 27, 2017 21:05 - CONCLUSION: 1. No free intraperitoneal air. 2. Small left pleural effusion. 3. Contrast noted throughout the stomach, small intestine and colon. David Tafoya MD Objective Remarks GENERAL: Elderly white male in no acute distress, lethargic but arousable, answers few questions. HEENT: PERRLA, EOMI. No scleral icterus or conjunctival pallor. No lid lag or facial droop. CARDIOVASCULAR: Regular rate and rhythm. No obvious murmurs to auscultation. No chest tenderness to palpation. RESPIRATORY: No obvious rhonchi or wheezing. Clear to auscultation. Breath sounds equal bilaterally. GASTROINTESTINAL: Abdomen soft, non-tender, nondistended. BS normal. PEG tube in place, no surrounding erythema. MUSCULOSKELETAL: Extremities without clubbing, cyanosis, or edema. No obvious deformities. NEUROLOGICAL: Lethargic but arousable. No focal neurologic deficits. Moving both upper and lower extremities spontaneously. 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 Encephalopathy: Unclear etiology, likely related to infectious process. CT Head w/ no acute findings, images reviewed by me. Multiple admits w/ prolonged hospitalization and episodes of encephalopathy. Will monitor, treat underlying infections. 2. PNA: CXR w/ focal left basilar patchiness consistent w/ pneumonia, images reviewed by me. S/p Rocephin/Zithro in ER, however will continue w/ broad spectrum coverage for HCAP in light of multiple hospitalizations. DuoNeb prn. 3. UTI: Persistent, recent UTI 02/22/17, will continue w/ IV Abx, IVF for hydration. 4. Hypocalcemia: Ca 6.7, will replace and recheck in am. 5. A-fib: Controlled. Resume home Cardizem, Amiodarone and Xarelto. 6. Squamous Cell CA of Epiglottis: s/p eval by Radiation Oncology, plan for radiotherapy. S/p PEG tube, continue w/ diet as tolerated. 7. DM: Uncontrolled. BS 555, no evidence of acidosis. Sliding scale w/ Accu- Cheks, resume home Levemir once taking adequate PO. DVT Prophylaxis: On Xarelto. CM for d/c planning as needed Discussed with the patient, nurse Problem Qualifiers (1) UTI (urinary tract infection): Qualified Code: T83.511D - Urinary tract infection associated with indwelling urethral catheter, subsequent encounter Shannon Myers MD Feb 28, 2017 11:05
[2017-02-28] MEDS: CALCIUM CARBONATE 500 MG CHEWABLE TAB CHEW SCH ×2 (11:15→21:09)
[2017-02-28] MEDS ORDERED: CALCIUM GLUCONATE INJ 2 GM in SODIUM CHLORIDE 0.9% INJ 100 ML IV ONE (11:15)
[2017-02-28] MEDS: TIOTROPIUM BROMIDE 18 MCG INH INH SCH (11:30)
[2017-02-28] MEDS: VANCOMYCIN INJ 1,750 MG in SODIUM CHLORID 0.9% 500 ML INJ 500 ML IV SCH (14:53)
[2017-02-28] MEDS: SODIUM CHLOR 0.9% 1000 ML INJ 1,000 ML IV SCH ×2 (14:54→18:43)
[2017-02-28] MEDS ORDERED: POTASSIUM PHOSPHATE INJ 15 MMOL in SODIUM CHLORIDE 0.9% INJ 150 ML IV ONE (16:45)
[2017-02-28] MEDS: MORPHINE SULFATE 4 MG/ML INJ IV PRN ×2 (17:00→21:11)
[2017-02-28] MEDS: SODIUM CHLORIDE 0.9% FLUSH 10 ML FLUSH IV FLUSH PRN (17:01)
[2017-02-28] MEDS: ATORVASTATIN 40 MG TAB PO SCH (21:09)
[2017-02-28] MEDS: traZODone HCL 100 MG TAB PO SCH (21:09)
[2017-02-28] MEDS: RESP: ALBUTEROL 2.5 MG/IPRATROPIUM 0.5 MG NEB (PRN) NEB (21:23)
[2017-03-01] VITALS (9 sets, daily range): BP systolic 98–132; BP diastolic 48–64; PULSE 71–77; RESP 18–20; TEMP 96.4–98.1; O2SAT 93–97
[2017-03-01] MEDS: VANCOMYCIN INJ 1,750 MG in SODIUM CHLORID 0.9% 500 ML INJ 500 ML IV SCH ×2 (02:03→14:21)
[2017-03-01] MEDS: MORPHINE SULFATE 4 MG/ML INJ IV PRN ×4 (02:23→16:30)
[2017-03-01] MEDS: SODIUM CHLOR 0.9% 1000 ML INJ 1,000 ML IV SCH ×2 (04:43→14:43)
[2017-03-01] MEDS: INSULIN ASPART SUPPLEMENTAL SCALE SQ SCH ×4 (07:38→21:00)
[2017-03-01 09:43] LABS: AUTOMATED NEUTROPHIL # 12.5 TH/MM3 (1.8-7.7); BASOPHIL # 0.1 TH/MM3 (0-0.2); BASOPHIL % 0.8 % (0.0-2.0); EOSINOPHIL % 0.3 % (0.0-4.0); HEMATOCRIT 36.3 % (39.0-51.0); HEMO FLAGS AUTO DIFF; LYMPH % 5.4 % (9.0-44.0); LYMPHOCYTE # 0.8 TH/MM3 (1.0-4.8); MEAN CELL VOLUME 83.7 FL (80.0-100.0); MEAN CORPUSCULAR HEMOGLOBIN 27.6 PG (27.0-34.0); MONO % 5.4 % (0.0-8.0); NEUT % 88.1 % (16.0-70.0); PLATELET COUNT 264 TH/MM3 (150-450); RED BLOOD COUNT 4.34 MIL/MM3 (4.50-5.90); RED CELL DISTRIBUTION WIDTH 19.4 % (11.6-17.2); WHITE BLOOD COUNT 14.2 TH/MM3 (4.0-11.0)
[2017-03-01] MEDS: RIVAROXABAN 20 MG TAB PO SCH (09:53)
[2017-03-01] MEDS: FAMOTIDINE 20 MG TAB PO SCH ×2 (09:53→20:14)
[2017-03-01] MEDS: clonazePAM 0.5 MG TAB PO SCH ×2 (09:53→20:14)
[2017-03-01] MEDS: CEFEPIME INJ 1,000 MG in SODIUM CHLORIDE 0.9% INJ 100 ML IV SCH ×2 (09:53→20:15)
[2017-03-01] MEDS: AMIODARONE 200 MG TAB PO SCH (09:53)
[2017-03-01] MEDS: DILTIAZEM-CD 240 MG CAP ER PO SCH ×2 (09:53→20:14)
[2017-03-01] MEDS: SODIUM CHLORIDE 0.9% FLUSH 10 ML FLUSH IV FLUSH SCH ×2 (09:54→20:15)
[2017-03-01] MEDS: DOCUSATE SODIUM 100 MG CAP PO SCH ×2 (09:54→20:14)
[2017-03-01] MEDS: VENLAFAXINE HCL XR 75 MG CAP PO SCH (09:54)
[2017-03-01] MEDS: CALCIUM CARBONATE 500 MG CHEWABLE TAB CHEW SCH ×2 (09:55→20:14)
--- NOTE | 2017-03-01 09:58 | HHI.PR ---
Subjective Remarks No acute events overnight. Afebrile, vital signs stable. Patient remains disoriented, thinking it is 2013. Oriented to place and self. Complains of pain in his back and extremities. Is due for his dose of morphine. Per his , his memory is still poor. He remains hyperglycemic. Objective Vitals Vital Signs Date Time Temp Pulse Resp B/P Pulse Ox O2 Delivery O2 Flow Rate FiO2 03/01/17 07:44 97.8 74 20 128/64 95 03/01/17 02:28 18 03/01/17 01:19 71 03/01/17 00:00 97.3 73 18 132/64 93 02/28/17 21:29 95 Nasal Cannula 2.00 02/28/17 20:00 97.4 71 18 137/63 95 02/28/17 17:51 96.9 76 19 114/55 95 02/28/17 13:29 97.7 73 19 110/53 97 I/O 02/28/17 02/28/17 02/28/17 03/01/17 03/01/17 03/01/17 07:00 15:00 23:00 07:00 15:00 23:00 Output Total 2000 ml 1150 ml 800 ml Balance -2000 ml -1150 ml -800 ml Output Urine Total 2000 ml 1150 ml 800 ml # Bowel Movements 1 Result Diagram: 03/01/17 0822 02/28/17 0728 Objective Remarks Gen.: No acute distress Head: Normocephalic. Atraumatic. EENT: Pupils equal round and reactive to light. Nose without drainage. Airway intact. Throat without injection. Cardiovascular: Regular rate and rhythm. No murmurs, rubs or gallops. Respiratory: Lungs clear to auscultation bilaterally. No wheezes or rhonchi. Abdomen: Soft, nontender, nondistended. No peritoneal signs. Musculoskeletal: No gross deformities. No edema. Skin: No obvious rashes or erythema. Neuro: Sensory and motor grossly intact. Cranial nerves II through XII grossly intact. 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 Encephalopathy: Unclear etiology, likely related to infectious process. CT Head w/ no acute findings. Multiple admits w/ prolonged hospitalization and episodes of encephalopathy. Will monitor, treat underlying infections. 2. PNA: CXR w/ focal left basilar patchiness consistent w/ pneumonia. S/p Rocephin/Zithro in ER, however will continue w/ broad spectrum coverage for HCAP in light of multiple hospitalizations. DuoNeb prn. 3. UTI: Persistent, recent UTI 02/22/17, will continue w/ IV Abx, IVF for hydration. 4. Hypocalcemia: Ca 6.7, will replace and recheck in am. 5. A-fib: Controlled. Resume home Cardizem, Amiodarone and Xarelto. 6. Squamous Cell CA of Epiglottis: s/p eval by Radiation Oncology, plan for radiotherapy. S/p PEG tube, continue w/ Glucerna tube feeds and tray. 7. DM: Uncontrolled. BS 555, no evidence of acidosis. Sliding scale w/ Accu- Cheks, resume home Levemir once taking adequate PO. Blood glucose remains elevated as patient is on Jevity 1.5. Changed to Glucerna 1.5 at 65 cc/hour. 8. Edema: Patient with pitting edema of his hands and lower extremities. Lasix 40 mg IV 1. Continue to monitor. DVT Prophylaxis: On Xarelto. CM for d/c planning as needed Problem Qualifiers (1) UTI (urinary tract infection): Qualified Code: T83.511D - Urinary tract infection associated with indwelling urethral catheter, subsequent encounter Peace Shafer MD R3 Mar 01, 2017 09:58
[2017-03-01] MEDS ORDERED: FUROSEMIDE 40 MG/4 ML VIAL IV PUSH ONE (10:00)
[2017-03-01 10:19] LABS: ACANTHOCYTES OCC (NORMAL); BANDS 3 % (0-6); METAMYELOCYTES 1 % (0-1); MYELOCYTES 2 % (0-0); NEUTROPHIL # MANUAL DIFF 13.3 TH/MM3 (1.8-7.7); OVALOCYTES 1+ (NORMAL); PLATELET ESTIMATE SMEAR NORMAL (NORMAL); PLATELET MORPHOLOGY NORMAL (NORMAL); POLYS (SEG NEUTROPHILS) 88 % (16-70); SCAN/DIFF FINAL DIFF MANUAL; WBC DIFF SAMPLE 100
[2017-03-01] MEDS: TIOTROPIUM BROMIDE 18 MCG INH INH SCH (11:50)
[2017-03-01 12:45] LABS: BICARBONATE 27.9 MEQ/L (21.0-32.0); MAGNESIUM 1.8 MG/DL (1.5-2.5); POTASSIUM 4.7 MEQ/L (3.5-5.1)
[2017-03-01 13:12] LABS: CALCIUM-PROTEIN CORRECTED 8.7 MG/DL (8.5-10.1)
[2017-03-01] MEDS ORDERED: PHARMACY ORDERED LAB ONE (13:45)
[2017-03-01] MEDS: traZODone HCL 100 MG TAB PO SCH (20:14)
[2017-03-01] MEDS: ATORVASTATIN 40 MG TAB PO SCH (20:14)
--- NOTE | 2017-03-01 21:22 | EKG ---
Date Performed: 02/27/2017 Time Performed: 22:10:44 PTAGE: 76 years EKG: Sinus rhythm LOW QRS VOLTAGE IN EXTREMITY LEADS BORDERLINE ECG PREVIOUS TRACING : 02/20/2017 15.03 DOCTOR: Atiya Viveros Interpretating Date/Time 03/01/2017 21:20:50
[2017-03-02] VITALS (8 sets, daily range): BP systolic 106–135; BP diastolic 50–63; PULSE 75–82; RESP 18–20; TEMP 96.7–98.1; O2SAT 95–98
[2017-03-02] MEDS: SODIUM CHLOR 0.9% 1000 ML INJ 1,000 ML IV SCH (00:28)
[2017-03-02] MEDS: MORPHINE SULFATE 15 MG TAB PO PRN (01:56)
[2017-03-02] MEDS: VANCOMYCIN INJ 1,500 MG in SODIUM CHLORID 0.9% 500 ML INJ 500 ML IV SCH ×2 (05:12→17:21)
[2017-03-02] MEDS: INSULIN ASPART SUPPLEMENTAL SCALE SQ SCH ×4 (05:34→23:38)
[2017-03-02 08:09] LABS: AUTOMATED NEUTROPHIL # 13.6 TH/MM3 (1.8-7.7); BASOPHIL # 0.1 TH/MM3 (0-0.2); BASOPHIL % 0.4 % (0.0-2.0); HEMATOCRIT 35.6 % (39.0-51.0); HEMO FLAGS DIFF FINAL; LYMPH % 5.1 % (9.0-44.0); LYMPHOCYTE # 0.8 TH/MM3 (1.0-4.8); MEAN CELL VOLUME 84.5 FL (80.0-100.0); MEAN CORPUSCULAR HEMOGLOBIN 27.1 PG (27.0-34.0); MEAN CORPUSCULAR HGB CONC 32.1 % (32.0-36.0); MONO % 5.8 % (0.0-8.0); NEUT % 88.7 % (16.0-70.0); PLATELET COUNT 248 TH/MM3 (150-450); RED BLOOD COUNT 4.21 MIL/MM3 (4.50-5.90); RED CELL DISTRIBUTION WIDTH 19.2 % (11.6-17.2); WHITE BLOOD COUNT 15.4 TH/MM3 (4.0-11.0)
[2017-03-02 08:39] LABS: BICARBONATE 28.3 MEQ/L (21.0-32.0); POTASSIUM 4.2 MEQ/L (3.5-5.1)
[2017-03-02 08:52] LABS: CALCIUM-PROTEIN CORRECTED 8.7 MG/DL (8.5-10.1)
[2017-03-02] MEDS: SODIUM CHLORIDE 0.9% FLUSH 10 ML FLUSH IV FLUSH SCH ×2 (09:00→21:00)
--- NOTE | 2017-03-02 09:25 | HHI.PR ---
Subjective Remarks Follow up: AMS, PNA. Patient resting in bed able to awake to voice answers questions and able to follow commands. remains alert and oriented to person and place only. Thinks it is January 2000. Patient offers no specific complaints at this time. Patient reports he is feeling better, asking if he can go home. Objective Vitals Vital Signs Date Time Temp Pulse Resp B/P Pulse Ox O2 Delivery O2 Flow Rate FiO2 03/02/17 04:59 98.1 81 18 113/50 98 03/02/17 00:00 97.6 82 19 108/53 96 03/01/17 21:00 77 03/01/17 20:58 96.4 77 19 111/63 96 03/01/17 18:03 97 Nasal Cannula 3.00 03/01/17 18:00 98.1 77 18 98/48 97 03/01/17 13:31 93 Nasal Cannula 3.00 03/01/17 13:00 97.2 76 20 101/57 95 I/O 03/01/17 03/01/17 03/01/17 03/02/17 03/02/17 03/02/17 07:00 15:00 23:00 07:00 15:00 23:00 Intake Total 326 ml 1204 ml 1051 ml Output Total 1600 ml 2200 ml 300 ml Balance -1274 ml -996 ml 751 ml IV Total 653 ml 773 ml Tube Feeding 326 ml 551 ml 278 ml Output Urine Total 1600 ml 2200 ml 300 ml Result Diagram: 03/02/17 0720 03/02/17 0720 Imaging Last Impressions Head CT 02/27/172042 Signed Impressions: Service Date/Time: Monday, February 27, 2017 20:58 - CONCLUSION: 1. Mild cerebral atrophy and periventricular white matter small vessel ischemic changes bilaterally. 2. No acute infarct, acute hemorrhage, mass effect or extra- axial fluid collections. 3. Mucus retention cysts within the maxillary sinuses bilaterally and mucosal thickening within the sphenoid sinuses bilaterally. David Tafoya MD Chest X-Ray 02/27/172042 Signed Impressions: Service Date/Time: Monday, February 27, 2017 20:57 - CONCLUSION: Focal left basilar patchiness consistent with probable pneumonia. Small left pleural effusion. David Tafoya MD Abdomen X-Ray 02/27/17 0000 Signed Impressions: Service Date/Time: Monday, February 27, 2017 21:05 - CONCLUSION: 1. No free intraperitoneal air. 2. Small left pleural effusion. 3. Contrast noted throughout the stomach, small intestine and colon. David Tafoya MD Objective Remarks General: No acute distress. A&O to person and place Head: Normocephalic. Atraumatic. EENT: EOMI. Nose without drainage. Airway intact. Throat without injection. Cardiovascular: Regular rate and rhythm. No murmurs, rubs or gallops. Respiratory: Lungs clear to auscultation bilaterally. No wheezes or rhonchi. Abdomen: Soft, nontender, nondistended. No peritoneal signs. Musculoskeletal: No gross deformities. No edema. Skin: No obvious rashes or erythema. Neuro: Sensory and motor grossly intact. no focal deficits appreciated. 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 CT Head w/ no acute findings. Multiple admits w/ prolonged hospitalization and episodes of encephalopathy. Will monitor, treat underlying infections. PNA CXR w/ focal left basilar patchiness consistent w/ pneumonia. continue w/ broad spectrum coverage Cefepime and Vancomycin (pharmacy to dose ) for HCAP in light of multiple hospitalizations. DuoNeb prn. Leukocytosis: 16.6 --> 17.9 --> 14.2 --> 15.4 continue current abx recheck CBC in AM UTI - Urine culture positive for Sunitha Albicans Hypocalcemia- resolved corrected calcium now 8.7 A-fib: rate controlled. continue home Cardizem, Amiodarone and Xarelto. Squamous Cell CA of Epiglottis s/p evaluation by Radiation Oncology, plan for radiotherapy. S/p PEG tube, continue w/ Glucerna tube feeds and tray. DM: Uncontrolled. BS 555 on admission continues to run high add levemir 10 uints Q12H and continue to monitor blood glucose may need to adjust Sliding scale w/ Accu-Cheks with SSI coverage continue TF Glucerna 1.5 at 65 cc/hour. Edema- imprioved, on admission patient with pitting edema of his hands and lower extremities. S/P Lasix 40 mg IV 1. Continue to monitor. DVT Prophylaxis: On Xarelto. CM for d/c planning as needed discussed with patient and nursing Written by Mirella Cardoso, acting as scribe for Dr. Parks on 03/02/17 at 09: 23. All or portions of this note were transcribed by scribmahogany Cardoso. I, Dr. Leticia Parks personally performed the history, physical exam, and medical decision making; and confirmed the accuracy of the information in the transcribed note. Authenticated by Dr. Leticia Parks on 03/02/17 at 0923 Problem Qualifiers (1) UTI (urinary tract infection): Qualified Code: T83.511D - Urinary tract infection associated with indwelling urethral catheter, subsequent encounter Mirella Cardoso Mar 02, 2017 09:25 Leticia Parks MD Mar 02, 2017 18:46
[2017-03-02] MEDS: INSULIN DETEMIR 100 UNITS/ML VIAL SQ SCH ×2 (09:30→23:37)
[2017-03-02] MEDS: CALCIUM CARBONATE 500 MG CHEWABLE TAB CHEW SCH ×2 (09:45→23:34)
[2017-03-02] MEDS: VENLAFAXINE HCL XR 75 MG CAP PO SCH (09:46)
[2017-03-02] MEDS: FAMOTIDINE 20 MG TAB PO SCH ×2 (09:46→23:34)
[2017-03-02] MEDS: clonazePAM 0.5 MG TAB PO SCH ×2 (09:46→23:34)
[2017-03-02] MEDS: AMIODARONE 200 MG TAB PO SCH (09:46)
[2017-03-02] MEDS: DOCUSATE SODIUM 100 MG CAP PO SCH ×2 (09:46→23:34)
[2017-03-02] MEDS: RIVAROXABAN 20 MG TAB PO SCH (09:46)
[2017-03-02] MEDS: DILTIAZEM-CD 240 MG CAP ER PO SCH ×2 (09:46→23:34)
[2017-03-02] MEDS: CEFEPIME INJ 1,000 MG in SODIUM CHLORIDE 0.9% INJ 100 ML IV SCH ×2 (09:48→23:34)
[2017-03-02] MEDS: TIOTROPIUM BROMIDE 18 MCG INH INH SCH (09:49)
[2017-03-02] MEDS: MORPHINE SULFATE 4 MG/ML INJ IV PRN ×2 (19:52→23:36)
[2017-03-02] MEDS: SODIUM CHLORIDE 0.9% FLUSH 10 ML FLUSH IV FLUSH PRN (19:52)
[2017-03-02] MEDS: ATORVASTATIN 40 MG TAB PO SCH (23:33)
[2017-03-02] MEDS: traZODone HCL 100 MG TAB PO SCH (23:35)
[2017-03-02] MEDS: fentaNYL 50 MCG/HR PATCH T-DERMAL SCH (23:39)
[2017-03-02] MEDS: REMOVE OLD DURAGESIC (FENTANYL) PATCH T-DERMAL SCH (23:40)
[2017-03-03] VITALS (11 sets, daily range): BP systolic 111–139; BP diastolic 57–72; PULSE 81–87; RESP 18–20; TEMP 96.2–97.2; O2SAT 93–97
[2017-03-03] MEDS: SODIUM CHLOR 0.9% 1000 ML INJ 1,000 ML IV SCH ×3 (01:18→16:43)
[2017-03-03] MEDS: VANCOMYCIN INJ 1,500 MG in SODIUM CHLORID 0.9% 500 ML INJ 500 ML IV SCH ×2 (08:12→17:00)
[2017-03-03 08:19] LABS: AUTOMATED NEUTROPHIL # 11.9 TH/MM3 (1.8-7.7); BASOPHIL # 0.1 TH/MM3 (0-0.2); BASOPHIL % 0.5 % (0.0-2.0); HEMATOCRIT 37.1 % (39.0-51.0); HEMO FLAGS DIFF FINAL; LYMPHOCYTE # 0.8 TH/MM3 (1.0-4.8); MEAN CELL VOLUME 84.4 FL (80.0-100.0); MEAN CORPUSCULAR HEMOGLOBIN 27.4 PG (27.0-34.0); MEAN CORPUSCULAR HGB CONC 32.4 % (32.0-36.0); MONO % 6.5 % (0.0-8.0); PLATELET COUNT 254 TH/MM3 (150-450); RED CELL DISTRIBUTION WIDTH 19.5 % (11.6-17.2); WHITE BLOOD COUNT 13.7 TH/MM3 (4.0-11.0)
[2017-03-03] MEDS: INSULIN ASPART SUPPLEMENTAL SCALE SQ SCH ×4 (08:29→21:00)
[2017-03-03] MEDS: INSULIN DETEMIR 100 UNITS/ML VIAL SQ SCH ×2 (08:31→21:00)
[2017-03-03] MEDS: CEFEPIME INJ 1,000 MG in SODIUM CHLORIDE 0.9% INJ 100 ML IV SCH ×2 (08:34→21:49)
[2017-03-03] MEDS: VENLAFAXINE HCL XR 75 MG CAP PO SCH (08:35)
[2017-03-03] MEDS: MORPHINE SULFATE 15 MG TAB PO PRN (08:37)
[2017-03-03] MEDS: DILTIAZEM-CD 240 MG CAP ER PO SCH ×2 (08:38→21:48)
[2017-03-03] MEDS: clonazePAM 0.5 MG TAB PO SCH ×2 (08:38→21:48)
[2017-03-03] MEDS: RIVAROXABAN 20 MG TAB PO SCH (08:38)
[2017-03-03] MEDS: DOCUSATE SODIUM 100 MG CAP PO SCH ×2 (08:38→21:48)
[2017-03-03 08:39] LABS: BICARBONATE 29.3 MEQ/L (21.0-32.0); POTASSIUM 4.7 MEQ/L (3.5-5.1)
[2017-03-03] MEDS: CALCIUM CARBONATE 500 MG CHEWABLE TAB CHEW SCH ×2 (08:39→21:48)
[2017-03-03] MEDS: AMIODARONE 200 MG TAB PO SCH (08:39)
[2017-03-03] MEDS: FAMOTIDINE 20 MG TAB PO SCH ×2 (08:42→21:48)
[2017-03-03] MEDS: SODIUM CHLORIDE 0.9% FLUSH 10 ML FLUSH IV FLUSH SCH ×2 (08:52→21:00)
[2017-03-03] MEDS: TIOTROPIUM BROMIDE 18 MCG INH INH SCH (08:55)
--- NOTE | 2017-03-03 13:00 | HHI.PR ---
Subjective Remarks Pt states that he is discouraged because he keeps getting sick and is in and out of the hospital. at bedside. states that he has improved since admission but still is at times confused. pt denies any CP/SOB/N/V noted today that pt coughs after eating Objective Vitals Vital Signs Date Time Temp Pulse Resp B/P Pulse Ox O2 Delivery O2 Flow Rate FiO2 03/03/17 12:21 97.2 85 18 125/65 96 03/03/17 09:37 18 03/03/17 08:57 82 03/03/17 08:00 97.2 87 18 123/72 94 03/03/17 07:55 82 03/03/17 04:00 96.9 85 20 139/65 95 03/03/17 00:00 96.6 81 20 125/58 97 03/02/17 20:00 97.1 75 20 125/63 96 03/02/17 19:55 95 Nasal Cannula 3.00 03/02/17 18:00 79 03/02/17 16:00 96.9 77 20 106/52 96 03/02/17 14:09 Nasal Cannula 3.00 I/O 03/02/17 03/02/17 03/02/17 03/03/17 03/03/17 03/03/17 07:00 15:00 23:00 07:00 15:00 23:00 Intake Total 1051 ml 0 ml 480 ml Output Total 300 ml 2000 ml 900 ml Balance 751 ml 0 ml -1520 ml -900 ml Intake Oral 0 ml 480 ml IV Total 773 ml Tube Feeding 278 ml Output Urine Total 300 ml 2000 ml 900 ml # Bowel Movements 0 Result Diagram: 03/03/17 0741 03/03/17 0741 Imaging Last Impressions Chest X-Ray 03/03/17 0000 Signed Impressions: Service Date/Time: Friday, March 03, 2017 13:22 - CONCLUSION: 1. Small bilateral effusions and diffuse interstitial prominence which would suggest some degree of failure. 2. Left basal infiltrate unchanged from previous. Jose Sims MD Head CT 02/27/172042 Signed Impressions: Service Date/Time: Monday, February 27, 2017 20:58 - CONCLUSION: 1. Mild cerebral atrophy and periventricular white matter small vessel ischemic changes bilaterally. 2. No acute infarct, acute hemorrhage, mass effect or extra- axial fluid collections. 3. Mucus retention cysts within the maxillary sinuses bilaterally and mucosal thickening within the sphenoid sinuses bilaterally. David Tafoya MD Abdomen X-Ray 02/27/17 0000 Signed Impressions: Service Date/Time: Thursday, February 27, 2017 21:05 - CONCLUSION: 1. No free intraperitoneal air. 2. Small left pleural effusion. 3. Contrast noted throughout the stomach, small intestine and colon. David Tafoya MD Objective Remarks General: No acute distress. Cardiovascular: Regular rate and rhythm. No murmurs Respiratory: Lungs clear to auscultation bilaterally. No wheezes Abdomen: Soft, nontender, nondistended. peg tube in place, no erythema Musculoskeletal: No gross deformities. No edema. Skin: No obvious rashes or erythema. Neuro: Sensory and motor grossly intact. no focal deficits appreciated. 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 CT Head w/ no acute findings. Multiple admits w/ prolonged hospitalization and episodes of encephalopathy and recurrently PNA per . Pt also w hx of COPD and hasn't seen a caseworker protective services per . will consult pulm as pt keeps having recurrent episodes. in addition, will get a speech re-eval to make sure there is no aspiration occurring. Will monitor, treat underlying infections. PNA see above. repeat chest x-ray shows interstitial prominance concerning for possible CHF and unchanged left basal infiltrate. I did review pt's chart and he had a ROBLES 11/14 showing EF of 45-50%. Caution w IVFs. continue w/ broad spectrum coverage Cefepime and Vancomycin (pharmacy to dose ) for HCAP in light of multiple hospitalizations. DuoNeb prn. pulm consult as above Leukocytosis: 16.6 --> 17.9 --> 14.2 --> 15.4-->13.7 continue current abx recheck CBC in AM UTI - Urine culture positive for Sunitha Albicans. treat w diflucan x 3 days as this could also contribute to pt's symptoms. Hypocalcemia- resolved corrected calcium now 8.7 A-fib: rate controlled. continue home Cardizem, Amiodarone and Xarelto. Squamous Cell CA of Epiglottis s/p evaluation by Radiation Oncology, plan for radiotherapy. S/p PEG tube, continue w/ Glucerna tube feeds and tray. DM: Uncontrolled. BS 555 on admission continues to run high increased levemir 15 uints Q12H and continue to monitor blood glucose may need to adjust Sliding scale w/ Accu-Cheks with SSI coverage continue TF Glucerna 1.5 at 65 cc/hour. Edema- imprioved, on admission patient with pitting edema of his hands and lower extremities. S/P Lasix 40 mg IV 1. Continue to monitor. DVT Prophylaxis: On Xarelto. CM for d/c planning as needed Discharge Planning pulm consult in place. encourage pt to work w PT, PT consult in place anticipate d/c soon. Problem Qualifiers (1) UTI (urinary tract infection): Qualified Code: T83.511D - Urinary tract infection associated with indwelling urethral catheter, subsequent encounter Leticia Parks MD Mar 03, 2017 13:00
[2017-03-03] MEDS ORDERED: PILL SPLITTER OTHER PRN (13:15)
[2017-03-03] MEDS: FLUCONAZOLE 100 MG TAB PO SCH (13:51)
[2017-03-03] MEDS: MORPHINE SULFATE 4 MG/ML INJ IV PRN ×2 (13:52→19:52)
--- NOTE | 2017-03-03 14:33 | RADRPT ---
EXAM DATE/TIME: 03/03/2017 13:22 [facility] COMPARISON: CHEST SINGLE AP, February 27, 2017, 20:57. ABDOMEN UPRIGHT ONLY, February 27, 2017, 21:05. INDICATIONS : Infiltrate. Back pain. MEDICAL HISTORY : None. SURGICAL HISTORY : Left humerus. ENCOUNTER: Initial ACUITY: 4 - 6 days PAIN SCORE: 9/10 LOCATION: Bilateral Back pain. FINDINGS: The examination demonstrates consolidation in the left lung base. This is relatively unchanged from t he previous. There is diffuse interstitial prominence throughout both lungs which again is stable com pared to prior. There are small bilateral effusions. The heart is normal in size. Visualized bony structures are grossly intact. CONCLUSION: 1. Small bilateral effusions and diffuse interstitial prominence which would suggest some degree of f ailure. 2. Left basal infiltrate unchanged from previous. Jose Sims MD on March 03, 2017 at 14:28 Board Certified Radiologist. This report was verified electronically.
[2017-03-03] MEDS ORDERED: FUROSEMIDE 40 MG/4 ML VIAL IV PUSH ONE (16:30)
[2017-03-03] MEDS ORDERED: PHARMACY ORDERED LAB ONE (16:45)
--- NOTE | 2017-03-03 20:42 | MB ---
cc: BECKY PAUL DATE OF CONSULTATION 03/03/[address] Crista Parks REASON FOR CONSULTATION Evaluate for pneumonia. HISTORY OF THE PRESENT ILLNESS Mr. Santana is a pleasant 76-year-old male who is known to me from the previous admission. The patient was recently discharged from this hospital. He went to [facility]. He was brought back because of decrease in his mentation. He was evaluated in the emergency room and was found to have Sunitha in the urine. His CBC showed WBC count 13.7, hemoglobin 12.1, hematocrit 37.1, MCV 84, platelet count 254. Sodium 132, potassium 4.7, chloride 97, CO2 29, BUN 40, creatinine 0.50. IMAGING His chest x-ray shows small bilateral pleural effusion with interstitial prominence with some degree of failure and left basilar infiltrate which are unchanged. The patient feels fine. He is on room air. Does not have any cough or sputum production. Denies any chest pain. No nausea or vomiting and he is weaned down to room air. His is at the bedside. She feels that he was discharged to soon from the hospital though she admits that without oxygen he is comfortable without any shortness of breath. PAST MEDICAL HISTORY His past medical history is significant for: 1. History of CA of the throat. 2. Atrial fibrillation. 3. COPD. 4. Diabetes mellitus. 5. Gastroparesis. 6. History of facial monroy. 7. Congestive heart failure. 8. History of cholecystectomy. MEDICATIONS He is currently takin. Insulin 15 units. 2. Diflucan 150 mg q.24 hours. 3. Lipitor 40 mg a day. 4. Trazodone 200 mg at nighttime. 5. Cefepime one gram q. 12-hour. 6. Amlodipine 200 mg a day. 7. Famotidine 20 milligrams. 8. Xarelto 20 mg a day. 9. Effexor 225 mg a day. 10. Spiriva once a day. 11. Albuterol/Atrovent nebulizer treatment. ALLERGIES HE IS ALLERGIC TO FLAGYL, FLOXIN, LATEX AND ADHESIVE TAPE. SOCIAL HISTORY He has history of smoking which he recently quit. No alcohol use. 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 He is disabled. FAMILY HISTORY He is second time now for 20 years. He has two children. His has two children. REVIEW OF SYSTEMS He is much better. Denies any shortness of breath. No headache or dizziness. No nausea or vomiting. PHYSICAL EXAMINATION GENERAL: Elderly male not in acute distress. VITAL SIGNS: The blood pressure 111/57, heart rate 83, respiration 18, temperature 96.2, saturation 93% on room air. HEENT: Examination is unremarkable. NECK: Supple. JVP not raised. CHEST: Equal bilaterally. He has a few rales. CARDIOVASCULAR: S1-S2 normal. ABDOMEN: Benign. EXTREMITIES: No edema. IMPRESSION 1. Basal infiltrate, probably resolving pneumonia. Clinically he has no symptoms suggestive of pneumonia or acute infection. 2. Chronic obstructive pulmonary disease. 3. Small pleural effusion. 4. Congestive heart failure. 5. Atrial fibrillation. 6. Major depression. PLAN Discussed at length with the patient and his he is being treated with antibiotic. We will monitor his clinical status. Pneumonia is resolving. The effusion is small. No need for any thoracentesis. We will continue aerosol treatment and monitor him without oxygen and supplement oxygen to keep saturation 88-92%. Further treatment will depend on the course in the hospital. Thank you Dr. Parks for this consultation. MD GAB Castaneda/LAVERN /6:51 PM /8:26 PM
[2017-03-03] MEDS: ATORVASTATIN 40 MG TAB PO SCH (21:48)
[2017-03-03] MEDS: traZODone HCL 100 MG TAB PO SCH (21:48)
[2017-03-04] MEDS: VANCOMYCIN INJ 1,300 MG in SODIUM CHLORID 0.9% 500 ML INJ 500 ML IV SCH ×3 (00:53→23:45)
[2017-03-04] MEDS: MORPHINE SULFATE 4 MG/ML INJ IV PRN ×3 (00:53→21:45)
[2017-03-04] MEDS: ONDANSETRON HCL 4 MG/2 ML VIAL IVP PRN (00:53)
[2017-03-04 01:11] VITALS: BP 121/61; PULSE 74; RESP 18; TEMP 97.6; O2SAT 96
[2017-03-04] MEDS: SODIUM CHLOR 0.9% 1000 ML INJ 1,000 ML IV SCH ×3 (02:43→22:43)
[2017-03-04 05:53] VITALS: BP 115/59; PULSE 81; RESP 18; TEMP 98; O2SAT 96
[2017-03-04] MEDS: INSULIN ASPART SUPPLEMENTAL SCALE SQ SCH ×4 (06:29→21:00)
[2017-03-04 08:00] VITALS: BP 109/56; PULSE 82; RESP 19; TEMP 96.3; O2SAT 95
[2017-03-04 08:00] LABS: AUTOMATED NEUTROPHIL # 10.8 TH/MM3 (1.8-7.7); BASOPHIL # 0.1 TH/MM3 (0-0.2); BASOPHIL % 0.8 % (0.0-2.0); HEMATOCRIT 34.1 % (39.0-51.0); LYMPH % 6.5 % (9.0-44.0); LYMPHOCYTE # 0.8 TH/MM3 (1.0-4.8); MEAN CELL VOLUME 83.1 FL (80.0-100.0); MEAN CORPUSCULAR HEMOGLOBIN 27.5 PG (27.0-34.0); MEAN CORPUSCULAR HGB CONC 33.1 % (32.0-36.0); MONO % 7.1 % (0.0-8.0); NEUT % 85.6 % (16.0-70.0); PLATELET COUNT 247 TH/MM3 (150-450); RED CELL DISTRIBUTION WIDTH 19.6 % (11.6-17.2); WHITE BLOOD COUNT 12.6 TH/MM3 (4.0-11.0)
[2017-03-04 08:04] LABS: HEMO FLAGS AUTO DIFF
[2017-03-04 08:23] LABS: BICARBONATE 31.8 MEQ/L (21.0-32.0); POTASSIUM 4.4 MEQ/L (3.5-5.1)
[2017-03-04] MEDS: SODIUM CHLORIDE 0.9% FLUSH 10 ML FLUSH IV FLUSH SCH ×2 (09:00→21:35)
[2017-03-04 09:01] VITALS: O2SAT 98
[2017-03-04 09:01] LABS: ACANTHOCYTES OCC (NORMAL); BANDS 4 % (0-6); MYELOCYTES 2 % (0-0); NEUTROPHIL # MANUAL DIFF 10.7 TH/MM3 (1.8-7.7); PLATELET ESTIMATE SMEAR NORMAL (NORMAL); PLATELET MORPHOLOGY NORMAL (NORMAL); POLYS (SEG NEUTROPHILS) 79 % (16-70); WBC DIFF SAMPLE 100
[2017-03-04 09:02] LABS: SCAN/DIFF FINAL DIFF MANUAL
[2017-03-04] MEDS: DILTIAZEM-CD 240 MG CAP ER PO SCH ×2 (09:12→21:34)
[2017-03-04] MEDS: RIVAROXABAN 20 MG TAB PO SCH (09:12)
[2017-03-04] MEDS: clonazePAM 0.5 MG TAB PO SCH ×2 (09:12→21:33)
[2017-03-04] MEDS: FAMOTIDINE 20 MG TAB PO SCH ×2 (09:12→21:34)
[2017-03-04] MEDS: DOCUSATE SODIUM 100 MG CAP PO SCH ×2 (09:12→21:34)
[2017-03-04] MEDS: AMIODARONE 200 MG TAB PO SCH (09:12)
[2017-03-04] MEDS: CEFEPIME INJ 1,000 MG in SODIUM CHLORIDE 0.9% INJ 100 ML IV SCH ×2 (09:13→21:33)
[2017-03-04] MEDS: CALCIUM CARBONATE 500 MG CHEWABLE TAB CHEW SCH ×2 (09:13→21:33)
[2017-03-04] MEDS: MORPHINE SULFATE 15 MG TAB PO PRN ×3 (09:15→17:49)
[2017-03-04] MEDS: INSULIN DETEMIR 100 UNITS/ML VIAL SQ SCH ×2 (09:17→21:34)
[2017-03-04] MEDS: TIOTROPIUM BROMIDE 18 MCG INH INH SCH (09:19)
[2017-03-04] MEDS: VENLAFAXINE HCL XR 75 MG CAP PO SCH (09:19)
[2017-03-04 12:00] VITALS: BP 127/59; PULSE 82; RESP 20; TEMP 96.6; O2SAT 95
[2017-03-04] MEDS: FLUCONAZOLE 100 MG TAB PO SCH (13:40)
[2017-03-04 16:00] VITALS: BP 166/94; PULSE 102; RESP 16; TEMP 96.5; O2SAT 99
--- NOTE | 2017-03-04 18:06 | HHI.PR ---
Subjective Remarks Patient was evaluated earlier today. Patient told me that his buttock area is bothering him. Denies any chest pain, shortness of breath, nausea or vomiting. Tells me that his went back to identical manner to get his clothes. Objective Vitals Vital Signs Date Time Temp Pulse Resp B/P Pulse Ox O2 Delivery O2 Flow Rate FiO2 03/04/17 16:00 96.5 102 16 166/94 99 03/04/17 12:00 96.6 82 20 127/59 95 03/04/17 09:01 98 21 03/04/17 08:00 96.3 82 19 109/56 95 03/04/17 05:53 98.0 81 18 115/59 96 03/04/17 01:11 97.6 74 18 121/61 96 03/03/17 20:30 97.2 83 18 123/58 95 03/03/17 20:00 83 I/O 03/03/17 03/03/17 03/03/17 03/04/17 03/04/17 03/04/17 07:00 15:00 23:00 07:00 15:00 23:00 Intake Total 720 ml 2010 ml 480 ml 325 ml Output Total 900 ml 1700 ml 1300 ml 1200 ml Balance -900 ml -980 ml 2010 ml -820 ml -875 ml Intake Oral 720 ml 240 ml 360 ml 325 ml IV Total 800 ml Tube Feeding 650 ml Other 320 ml 120 ml Output Urine Total 900 ml 1700 ml 1300 ml 1200 ml # Bowel Movements 0 Result Diagram: 03/04/17 0742 03/04/17 0742 Imaging Last Impressions Chest X-Ray 03/03/17 0000 Signed Impressions: Service Date/Time: Friday, March 03, 2017 13:22 - CONCLUSION: 1. Small bilateral effusions and diffuse interstitial prominence which would suggest some degree of failure. 2. Left basal infiltrate unchanged from previous. Jose Sims MD Head CT 02/27/172042 Signed Impressions: Service Date/Time: Monday, February 27, 2017 20:58 - CONCLUSION: 1. Mild cerebral atrophy and periventricular white matter small vessel ischemic changes bilaterally. 2. No acute infarct, acute hemorrhage, mass effect or extra- axial fluid collections. 3. Mucus retention cysts within the maxillary sinuses bilaterally and mucosal thickening within the sphenoid sinuses bilaterally. David Tafoya MD Abdomen X-Ray 02/27/17 0000 Signed Impressions: Service Date/Time: Monday, February 27, 2017 21:05 - CONCLUSION: 1. No free intraperitoneal air. 2. Small left pleural effusion. 3. Contrast noted throughout the stomach, small intestine and colon. David Tafoya MD Objective Remarks General: No acute distress. Cardiovascular: Regular rate and rhythm. No murmurs Respiratory: Lungs clear to auscultation bilaterally. No wheezes Abdomen: Soft, nontender, nondistended. peg tube in place, no erythema Musculoskeletal: No gross deformities. No edema. Skin: Small sacral decubitus ulcer noted. No drainage noted. He also has an excoriation on the right buttock area. No signs of infection. Neuro: Sensory and motor grossly intact. no focal deficits appreciated. 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 CT Head w/ no acute findings. Multiple admits w/ prolonged hospitalization and episodes of encephalopathy and recurrently PNA per . Pt also w hx of COPD and hasn't seen a industrial x ray operator per . will consult pulm as pt keeps having recurrent episodes. He reevaluated the patient and recommends mechanical soft/honey consistency/thickened diet PNA see above. repeat chest x-ray shows interstitial prominance concerning for possible CHF and unchanged left basal infiltrate. I did review pt's chart and he had a ROBLES 11/14 showing EF of 45-50%. Caution w IVFs. continue w/ broad spectrum coverage Cefepime and Vancomycin (pharmacy to dose ) for HCAP in light of multiple hospitalizations. DuoNeb prn. Pulmonology evaluated the patient and recommended continuing aerosol treatments, and supplemental oxygen to maintain sats between 89 and 92%. Leukocytosis: Down to 12.6 continue current abx recheck CBC in AM UTI - Urine culture positive for Sunitah Albicans. treat w diflucan x 3 days as this could also contribute to pt's symptoms. Hypocalcemia- resolved corrected calcium now 8.7 A-fib: rate controlled. continue home Cardizem, Amiodarone and Xarelto. Squamous Cell CA of Epiglottis s/p evaluation by Radiation Oncology, plan for radiotherapy. S/p PEG tube, continue w/ Glucerna tube feeds and tray. DM: Uncontrolled. BS 555 on admission continues to run high increased levemir 15 uints Q12H and continue to monitor blood glucose may need to adjust Sliding scale w/ Accu-Cheks with SSI coverage continue TF Glucerna 1.5 at 65 cc/hour. Edema- improved, on admission patient with pitting edema of his hands and lower extremities. S/P Lasix 40 mg IV 1. Continue to monitor. DVT Prophylaxis: On Xarelto. Discharge Planning Appreciate assistance from pulmonology. encourage pt to work w PT anticipate d/c tomorrow Problem Qualifiers (1) UTI (urinary tract infection): Qualified Code: T83.511D - Urinary tract infection associated with indwelling urethral catheter, subsequent encounter Leticia Parks MD Mar 04, 2017 18:06
[2017-03-04] MEDS ORDERED: RESP: ALBUTEROL 2.5 MG/IPRATROPIUM 0.5 MG NEB (PRN) NEB (18:15)
--- NOTE | 2017-03-04 20:37 | HHI.PR ---
Subjective Remarks 76 YOWM with Depression,COPD,CHf,AF Has Bilat infilt No Cough or sp No fever denies sob On RA Objective Vital Signs Vital Signs Date Time Temp Pulse Resp B/P Pulse Ox O2 Delivery O2 Flow Rate FiO2 03/04/17 16:00 96.5 102 16 166/94 99 03/04/17 12:00 96.6 82 20 127/59 95 03/04/17 09:01 98 21 03/04/17 08:00 96.3 82 19 109/56 95 03/04/17 05:53 98.0 81 18 115/59 96 03/04/17 01:11 97.6 74 18 121/61 96 I/O 03/03/17 03/03/17 03/03/17 03/04/17 03/04/17 03/04/17 07:00 15:00 23:00 07:00 15:00 23:00 Intake Total 720 ml 2010 ml 480 ml 325 ml Output Total 900 ml 1700 ml 1300 ml 1200 ml Balance -900 ml -980 ml 2010 ml -820 ml -875 ml Intake Oral 720 ml 240 ml 360 ml 325 ml IV Total 800 ml Tube Feeding 650 ml Other 320 ml 120 ml Output Urine Total 900 ml 1700 ml 1300 ml 1200 ml # Bowel Movements 0 Result Diagram: 03/04/17 0742 03/04/17 0742 Objective Remarks GENERAL: MBMN WM, NAD SKIN: Warm and dry. HEAD: Normocephalic. EYES: No scleral icterus. No injection or drainage. NECK: Supple, trachea midline. No JVD or lymphadenopathy. CARDIOVASCULAR: Regular rate and rhythm without murmurs, gallops, or rubs. RESPIRATORY: Breath sounds equal bilaterally. No accessory muscle use. GASTROINTESTINAL: Abdomen soft, non-tender, nondistended. MUSCULOSKELETAL: No cyanosis, or edema. BACK: Nontender without obvious deformity. No CVA tenderness. A/P Assessment and Plan Bilat lung infilt, likly resolving pn, clinically stable COPD CHF AF Major Depression PLAN: DW Pt and Cont abx Aerosol nebs stable on RA Bimal Borden MD Mar 04, 2017 20:37
[2017-03-04] MEDS: ATORVASTATIN 40 MG TAB PO SCH (21:34)
[2017-03-04] MEDS: traZODone HCL 100 MG TAB PO SCH (21:44)
[2017-03-05] VITALS (7 sets, daily range): BP systolic 98–139; BP diastolic 53–80; PULSE 78–101; RESP 18–21; TEMP 96.1–98.1; O2SAT 92–96
[2017-03-05] MEDS: MORPHINE SULFATE 4 MG/ML INJ IV PRN ×6 (01:43→23:55)
[2017-03-05] MEDS: INSULIN ASPART SUPPLEMENTAL SCALE SQ SCH ×4 (06:09→21:12)
[2017-03-05 07:09] LABS: BASOPHIL # 0.1 TH/MM3 (0-0.2); BASOPHIL % 0.8 % (0.0-2.0); LYMPH % 5.2 % (9.0-44.0); LYMPHOCYTE # 0.7 TH/MM3 (1.0-4.8); MEAN CELL VOLUME 84.5 FL (80.0-100.0); MEAN CORPUSCULAR HEMOGLOBIN 28.4 PG (27.0-34.0); MEAN CORPUSCULAR HGB CONC 33.6 % (32.0-36.0); MONO % 7.2 % (0.0-8.0); NEUT % 86.8 % (16.0-70.0); PLATELET COUNT 251 TH/MM3 (150-450); RED BLOOD COUNT 4.02 MIL/MM3 (4.50-5.90); RED CELL DISTRIBUTION WIDTH 19.6 % (11.6-17.2); WHITE BLOOD COUNT 13.8 TH/MM3 (4.0-11.0)
[2017-03-05 07:11] LABS: HEMO FLAGS AUTO DIFF
[2017-03-05 08:46] LABS: KERATOCYTES OCC (NORMAL); OVALOCYTES 1+ (NORMAL); PLATELET ESTIMATE SMEAR NORMAL (NORMAL); PLATELET MORPHOLOGY NORMAL (NORMAL); SCAN/DIFF AUTO DIFF CONFIRMED
[2017-03-05] MEDS: CEFEPIME INJ 1,000 MG in SODIUM CHLORIDE 0.9% INJ 100 ML IV SCH ×2 (09:00→21:14)
[2017-03-05] MEDS: TIOTROPIUM BROMIDE 18 MCG INH INH SCH (09:00)
[2017-03-05] MEDS: FAMOTIDINE 20 MG TAB PO SCH ×2 (09:44→21:13)
[2017-03-05] MEDS: CALCIUM CARBONATE 500 MG CHEWABLE TAB CHEW SCH ×2 (09:44→21:12)
[2017-03-05] MEDS: RIVAROXABAN 20 MG TAB PO SCH (09:44)
[2017-03-05] MEDS: clonazePAM 0.5 MG TAB PO SCH ×2 (09:44→21:13)
[2017-03-05] MEDS: VENLAFAXINE HCL XR 75 MG CAP PO SCH (09:44)
[2017-03-05] MEDS: DOCUSATE SODIUM 100 MG CAP PO SCH ×2 (09:44→21:13)
[2017-03-05] MEDS: AMIODARONE 200 MG TAB PO SCH (09:44)
[2017-03-05] MEDS: DILTIAZEM-CD 240 MG CAP ER PO SCH ×2 (09:44→21:13)
[2017-03-05] MEDS: MORPHINE SULFATE 15 MG TAB PO PRN ×2 (09:45→18:21)
[2017-03-05] MEDS: INSULIN DETEMIR 100 UNITS/ML VIAL SQ SCH ×2 (09:49→21:11)
[2017-03-05] MEDS: SODIUM CHLOR 0.9% 1000 ML INJ 1,000 ML IV SCH ×2 (09:54→18:43)
[2017-03-05] MEDS: SODIUM CHLORIDE 0.9% FLUSH 10 ML FLUSH IV FLUSH SCH ×2 (09:55→21:14)
[2017-03-05] MEDS ORDERED: PHARMACY ORDERED LAB ONE (11:45)
--- NOTE | 2017-03-05 13:48 | HHI.PR ---
Subjective Remarks Pt tells me that we doesn't feel ready to leave the hospital. Pt states he had another chocking episode after eating his eggs I did speak w RN and she had paged me earlier about pt's chocking episode. I had her call ST to reassess pt's diet I spoke w pt's and she is very concerned about that episode, she is very nervous taking him home today and hopes he can at least stay one more night and get his radiation treatment at the [facility] tomorrow. She also request for him to get a prn dose of ativan prior to radiation Objective Vitals Vital Signs Date Time Temp Pulse Resp B/P Pulse Ox O2 Delivery O2 Flow Rate FiO2 03/05/17 12:00 96.1 81 20 116/56 93 03/05/17 08:00 97.6 81 20 117/57 92 03/05/17 06:20 98.1 101 21 125/75 96 03/05/17 01:10 97.7 99 20 139/80 95 03/04/17 16:00 96.5 102 16 166/94 99 I/O 03/04/17 03/04/17 03/04/17 03/05/17 03/05/17 03/05/17 07:00 15:00 23:00 07:00 15:00 23:00 Intake Total 480 ml 325 ml 600 ml Output Total 1300 ml 1200 ml 2000 ml Balance -820 ml -875 ml -1400 ml Intake Oral 360 ml 325 ml 600 ml Other 120 ml Output Urine Total 1300 ml 1200 ml 2000 ml # Bowel Movements 0 0 Result Diagram: 03/05/17 0632 03/04/17 0742 Objective Remarks General: No acute distress. Cardiovascular: Regular rate and rhythm. No murmurs Respiratory: Lungs clear to auscultation bilaterally. No wheezes Abdomen: Soft, nontender, nondistended. peg tube in place, no erythema Musculoskeletal: No gross deformities. No edema. Skin: Small sacral decubitus ulcer noted. No drainage noted. He also has an excoriation on the right buttock area. No signs of infection. Neuro: Sensory and motor grossly intact. no focal deficits appreciated. 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 CT Head w/ no acute findings. Multiple admits w/ prolonged hospitalization and episodes of encephalopathy and recurrently PNA per . 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 will consult pulm as pt keeps having recurrent episodes. Patient had another episode of choking with his breakfast today. Speech therapy reevaluated the patient and recommends full liquid diet with nectar consistency PNA see above. repeat chest x-ray shows interstitial prominance concerning for possible CHF and unchanged left basal infiltrate. I did review pt's chart and he had a ROBLES 11/14 showing EF of 45-50%. Caution w IVFs. continue w/ broad spectrum coverage Cefepime and Vancomycin (pharmacy to dose ) for HCAP in light of multiple hospitalizations. DuoNeb prn. Pulmonology evaluated the patient and recommended continuing aerosol treatments, and supplemental oxygen to maintain sats between 89 and 92%. Leukocytosis: Mildly elevated compared to yesterday. Monitor closely as patient may have aspirated from that episode this morning continue current abx recheck CBC in AM UTI - Urine culture positive for Sunitha Albicans. treat w diflucan x 3 days as this could also contribute to pt's symptoms. Hypocalcemia- resolved A-fib: rate controlled. continue home Cardizem, Amiodarone and Xarelto. Squamous Cell CA of Epiglottis s/p evaluation by Radiation Oncology, plan for radiotherapy. Patient has radiation therapy tomorrow afternoon. S/p PEG tube, continue w/ Glucerna tube feeds and tray. DM: Uncontrolled. BS 555 on admission On levemir 15 uints Q12H and continue to monitor blood glucose may need to adjust Sliding scale w/ Accu-Cheks with SSI coverage continue TF Glucerna 1.5 at 65 cc/hour. Edema- improved, on admission patient with pitting edema of his hands and lower extremities. S/P Lasix 40 mg IV 1. Continue to monitor. DVT Prophylaxis: On Xarelto. Discharge Planning Appreciate assistance from pulmonology. encourage pt to work w PT Due to episode of choking on his food this morning, will monitor patient overnight. If WBC stable and patient has no more difficulty eating dinner tonight and breakfast tomorrow he may be discharged to SNF after getting his radiation therapy. 3008 form in chart. A one-time dose Ativan when necessary has been ordered for patient to take prior to his radiation therapy Problem Qualifiers (1) UTI (urinary tract infection): Qualified Code: T83.511D - Urinary tract infection associated with indwelling urethral catheter, subsequent encounter Leticia Parks MD Mar 05, 2017 13:48
[2017-03-05] MEDS ORDERED: LORazepam 1 MG TAB PO PRN (14:15)
[2017-03-05] MEDS: FLUCONAZOLE 100 MG TAB PO SCH (14:54)
[2017-03-05] MEDS: VANCOMYCIN INJ 1,300 MG in SODIUM CHLORID 0.9% 500 ML INJ 500 ML IV SCH ×2 (14:55→23:49)
[2017-03-05] MEDS: ONDANSETRON HCL 4 MG/2 ML VIAL IVP PRN (18:54)
--- NOTE | 2017-03-05 20:41 | HHI.PR ---
Subjective Remarks 76 YOWM with Depression,COPD,CHf,AF Has Bilat infilt No Cough or sp No fever denies sob On RA Feels better Objective Vital Signs Vital Signs Date Time Temp Pulse Resp B/P Pulse Ox O2 Delivery O2 Flow Rate FiO2 03/05/17 16:00 96.4 78 20 98/53 94 03/05/17 12:00 96.1 81 20 116/56 93 03/05/17 08:00 97.6 81 20 117/57 92 03/05/17 06:20 98.1 101 21 125/75 96 03/05/17 01:10 97.7 99 20 139/80 95 I/O 03/04/17 03/04/17 03/04/17 03/05/17 03/05/17 03/05/17 07:00 15:00 23:00 07:00 15:00 23:00 Intake Total 480 ml 325 ml 600 ml Output Total 1300 ml 1200 ml 2000 ml 750 ml 500 ml Balance -820 ml -875 ml -1400 ml -750 ml -500 ml Intake Oral 360 ml 325 ml 600 ml Other 120 ml Output Urine Total 1300 ml 1200 ml 2000 ml 750 ml 500 ml # Bowel Movements 0 0 Result Diagram: 03/05/17 0632 03/04/17 0742 Objective Remarks GENERAL: MBMN WM, NAD SKIN: Warm and dry. HEAD: Normocephalic. EYES: No scleral icterus. No injection or drainage. NECK: Supple, trachea midline. No JVD or lymphadenopathy. CARDIOVASCULAR: Regular rate and rhythm without murmurs, gallops, or rubs. RESPIRATORY: Breath sounds equal bilaterally. No accessory muscle use. GASTROINTESTINAL: Abdomen soft, non-tender, nondistended. MUSCULOSKELETAL: No cyanosis, or edema. BACK: Nontender without obvious deformity. No CVA tenderness. A/P Assessment and Plan Bilat lung infilt, likly resolving pn, clinically stable COPD CHF AF Major Depression PLAN: Cont abx Aerosol nebs stable on RA DC Plans underway. Bimal Borden MD Mar 05, 2017 20:41
[2017-03-05] MEDS: ATORVASTATIN 40 MG TAB PO SCH (21:13)
[2017-03-05] MEDS: traZODone HCL 100 MG TAB PO SCH (21:13)
[2017-03-05] MEDS: REMOVE OLD DURAGESIC (FENTANYL) PATCH T-DERMAL SCH (23:49)
[2017-03-05] MEDS: fentaNYL 50 MCG/HR PATCH T-DERMAL SCH (23:50)
[2017-03-06] VITALS: BP 107/61; PULSE 80; RESP 18; TEMP 97.6; O2SAT 93
[2017-03-06] MEDS: MORPHINE SULFATE 4 MG/ML INJ IV PRN ×4 (03:45→21:10)
[2017-03-06 04:06] VITALS: BP 111/59; PULSE 77; RESP 18; TEMP 96.8; O2SAT 93
[2017-03-06] MEDS: SODIUM CHLOR 0.9% 1000 ML INJ 1,000 ML IV SCH ×2 (04:40→14:43)
[2017-03-06 06:56] LABS: AUTOMATED NEUTROPHIL # 11.6 TH/MM3 (1.8-7.7); BASOPHIL # 0.1 TH/MM3 (0-0.2); BASOPHIL % 0.9 % (0.0-2.0); HEMATOCRIT 37.2 % (39.0-51.0); LYMPH % 6.8 % (9.0-44.0); LYMPHOCYTE # 0.9 TH/MM3 (1.0-4.8); MEAN CORPUSCULAR HEMOGLOBIN 27.8 PG (27.0-34.0); MEAN CORPUSCULAR HGB CONC 32.8 % (32.0-36.0); MONO % 5.9 % (0.0-8.0); NEUT % 86.4 % (16.0-70.0); PLATELET COUNT 223 TH/MM3 (150-450); RED BLOOD COUNT 4.38 MIL/MM3 (4.50-5.90); RED CELL DISTRIBUTION WIDTH 19.5 % (11.6-17.2); WHITE BLOOD COUNT 13.4 TH/MM3 (4.0-11.0)
[2017-03-06 06:58] LABS: HEMO FLAGS AUTO DIFF
[2017-03-06] MEDS: INSULIN ASPART SUPPLEMENTAL SCALE SQ SCH ×4 (06:59→21:26)
[2017-03-06 08:00] VITALS: BP 121/64; PULSE 83; RESP 18; TEMP 97.3; O2SAT 93
[2017-03-06 08:15] LABS: BANDS 6 % (0-6); MYELOCYTES 6 % (0-0); NEUTROPHIL # MANUAL DIFF 11.5 TH/MM3 (1.8-7.7); POLYS (SEG NEUTROPHILS) 74 % (16-70); WBC DIFF SAMPLE 100
[2017-03-06 08:16] LABS: ACANTHOCYTES OCC (NORMAL); OVALOCYTES 1+ (NORMAL); PLATELET ESTIMATE SMEAR NORMAL (NORMAL); PLATELET MORPHOLOGY NORMAL (NORMAL); SCAN/DIFF FINAL DIFF MANUAL
[2017-03-06] MEDS: SODIUM CHLORIDE 0.9% FLUSH 10 ML FLUSH IV FLUSH SCH ×2 (09:00→21:00)
[2017-03-06] MEDS: DOCUSATE SODIUM 100 MG CAP PO SCH ×2 (09:00→21:17)
[2017-03-06] MEDS: RIVAROXABAN 20 MG TAB PO SCH (10:21)
[2017-03-06] MEDS: DILTIAZEM-CD 240 MG CAP ER PO SCH ×2 (10:22→21:17)
[2017-03-06] MEDS: AMIODARONE 200 MG TAB PO SCH (10:22)
[2017-03-06] MEDS: VENLAFAXINE HCL XR 75 MG CAP PO SCH (10:22)
[2017-03-06] MEDS: clonazePAM 0.5 MG TAB PO SCH ×2 (10:23→21:17)
[2017-03-06] MEDS: CALCIUM CARBONATE 500 MG CHEWABLE TAB CHEW SCH ×2 (10:23→21:17)
[2017-03-06] MEDS: FAMOTIDINE 20 MG TAB PO SCH ×2 (10:23→21:17)
[2017-03-06] MEDS: CEFEPIME INJ 1,000 MG in SODIUM CHLORIDE 0.9% INJ 100 ML IV SCH ×2 (10:24→21:17)
[2017-03-06] MEDS: TIOTROPIUM BROMIDE 18 MCG INH INH SCH (10:24)
[2017-03-06] MEDS: INSULIN DETEMIR 100 UNITS/ML VIAL SQ SCH ×2 (10:27→21:17)
[2017-03-06] MEDS: VANCOMYCIN INJ 1,300 MG in SODIUM CHLORID 0.9% 500 ML INJ 500 ML IV SCH ×2 (12:00→23:15)
[2017-03-06] MEDS ORDERED: LORazepam 2 MG/ML VIAL IV PUSH ONE (12:30)
[2017-03-06] MEDS ORDERED: FENT50T TD (12:44)
[2017-03-06] MEDS ORDERED: MSIR15 PO (12:44)
[2017-03-06] MEDS ORDERED: CLON.5 PO (12:44)
[2017-03-06] MEDS ORDERED: LEVA750T PO (12:44)
[2017-03-06] MEDS ORDERED: LORA-474 PO (12:45)
--- NOTE | 2017-03-06 12:46 | HHI.DS ---
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 Per report, pt noted by to be acting more confused and lethargic. Unable to obtain much history from patient. Multiple admissions and prolonged hospitalizations, initially for 3rd degree monroy suffered while smoking on Oxygen, tx to [facility] for burn therapy, returned to [place] to complete therapy. Admitted again for Suicide Attempt, Obstructive Jaundice, Encephalopathy, Sepsis, PNA/UTI, diagnosed w/ new onset A- fib. D/c'd to Inpatient Psych, re-admitted to medicine 02/05-02/26/17 w/ respiratory failure, found to have Squamous Cell Ca of the Epiglottis w/ plans for radiotherapy. D/c'd to SNF yesterday, however sent to ER today for AMS and increased lethargy. On arrival, BP 167/77, HR 80, O2 sat 100% on 2L NC, Afebrile. WBC 16.6, previously 13.9 on 02/26/17. Chemistry essentially at baseline. BS 555. Ca 6.7. UA positive for UTI. CXR with focal left basilar patchiness consistent with pneumonia. CT Head with no acute findings. Abdominal X-ray with no free intraperitoneal air. S/p Blood Cultures, Rocephin/ Zithro in ER. CBC/BMP: 03/06/17 0625 03/04/17 0742 Significant Findings Laboratory Tests Test 03/03/17 03/04/17 03/05/17 03/05/17 16:45 07:42 06:32 13:27 Vancomycin Level Trough 21.6 MCG/ML 15.5 MCG/ML (5.0-10.0) (5.0-10.0) White Blood Count 12.6 TH/MM3 13.8 TH/MM3 (4.0-11.0) (4.0-11.0) Red Blood Count 4.10 MIL/MM3 4.02 MIL/MM3 (4.50-5.90) (4.50-5.90) Hemoglobin 11.3 GM/DL 11.4 GM/DL (13.0-17.0) (13.0-17.0) Hematocrit 34.1 % 34.0 % (39.0-51.0) (39.0-51.0) Red Cell Distribution Width 19.6 % 19.6 % (11.6-17.2) (11.6-17.2) Neutrophils (%) (Auto) 85.6 % 86.8 % (16.0-70.0) (16.0-70.0) Lymphocytes (%) (Auto) 6.5 % 5.2 % (9.0-44.0) (9.0-44.0) Neutrophils # (Auto) 10.8 TH/MM3 12.0 TH/MM3 (1.8-7.7) (1.8-7.7) Lymphocytes # (Auto) 0.8 TH/MM3 0.7 TH/MM3 (1.0-4.8) (1.0-4.8) Neutrophils % (Manual) 79 % (16-70) Lymphocytes % 8 % (9-44) Neutrophils # (Manual) 10.7 TH/MM3 (1.8-7.7) Myelocytes 2 % (0-0) Chloride Level 97 MEQ/L (98-107) Creatinine 0.49 MG/DL (0.60-1.30) Random Glucose 202 MG/DL (74-106) Calcium Level 7.7 MG/DL (8.5-10.1) Monocytes # (Auto) 1.0 TH/MM3 (0-0.9) Ovalocytes 1+ (NORMAL) Test 03/06/17 06:25 White Blood Count 13.4 TH/MM3 (4.0-11.0) Red Blood Count 4.38 MIL/MM3 (4.50-5.90) Hemoglobin 12.2 GM/DL (13.0-17.0) Hematocrit 37.2 % (39.0-51.0) Red Cell Distribution Width 19.5 % (11.6-17.2) Neutrophils (%) (Auto) 86.4 % (16.0-70.0) Lymphocytes (%) (Auto) 6.8 % (9.0-44.0) Neutrophils # (Auto) 11.6 TH/MM3 (1.8-7.7) Lymphocytes # (Auto) 0.9 TH/MM3 (1.0-4.8) Neutrophils % (Manual) 74 % (16-70) Lymphocytes % 4 % (9-44) Monocytes % 10 % (0-8) Neutrophils # (Manual) 11.5 TH/MM3 (1.8-7.7) Myelocytes 6 % (0-0) Ovalocytes 1+ (NORMAL) Imaging Last Impressions Chest X-Ray 03/03/17 0000 Signed Impressions: Service Date/Time: Friday, March 03, 2017 13:22 - CONCLUSION: 1. Small bilateral effusions and diffuse interstitial prominence which would suggest some degree of failure. 2. Left basal infiltrate unchanged from previous. Jose Sims MD Head CT 02/27/172042 Signed Impressions: Service Date/Time: Monday, February 27, 2017 20:58 - CONCLUSION: 1. Mild cerebral atrophy and periventricular white matter small vessel ischemic changes bilaterally. 2. No acute infarct, acute hemorrhage, mass effect or extra- axial fluid collections. 3. Mucus retention cysts within the maxillary sinuses bilaterally and mucosal thickening within the sphenoid sinuses bilaterally. David Tafoya MD Abdomen X-Ray 02/27/17 0000 Signed Impressions: Service Date/Time: Monday, February 27, 2017 21:05 - CONCLUSION: 1. No free intraperitoneal air. 2. Small left pleural effusion. 3. Contrast noted throughout the stomach, small intestine and colon. David Tafoya MD PE at Discharge General: No acute distress. Cardiovascular: Regular rate and rhythm. No murmurs Respiratory: Lungs clear to auscultation bilaterally. No wheezes Abdomen: Soft, nontender, nondistended. peg tube in place, no erythema Musculoskeletal: No gross deformities. No edema. Skin: Small sacral decubitus ulcer noted. No drainage noted. He also has an excoriation on the right buttock area. No signs of infection. Neuro: Sensory and motor grossly intact. no focal deficits appreciated. Pt update on day of discharge Patient reports he is feeling okay. He is doing and okay with the modified diet per speech therapy. Discussed with RN and his at bedside. He will get first radiation treatment today. He is anxious about it. Hospital Course 76-year-old male admitted and treated for the following conditions. Encephalopathy Unclear etiology, likely related to infectious process. CT Head w/ no acute findings. Multiple admits w/ prolonged hospitalization and episodes of encephalopathy and recurrently PNA per . The patient encephalopathy mostly resolved. He is discharged to a [facility] facility to continue rehabilitation. PNA: The patient was treated for presumed HCAP. He was treated with broad spectrum coverage Cefepime and Vancomycin. Patient was followed by pulmonology. He was given breathing treatment and supplemental oxygen as needed. Respiratory symptoms significantly improved. He is discharge on Levaquin to continue antibiotics for an additional 7 days. UTI - Urine culture positive for Sunitha Albicans. Patient will continue treatment with fluconazole outpatient. Hypocalcemia- resolved A-fib: rate controlled. continue home Cardizem, Amiodarone and Xarelto. Squamous Cell CA of Epiglottis s/p evaluation by Radiation Oncology, patient to start radiation therapy today and will continue outpatient. S/p PEG tube, continue w/ Glucerna tube feeds and tray. DM: BS 555 on admission Levemir titrated up to 18 units Q12H Sliding scale w/ Accu-Cheks with SSI coverage continue TF Glucerna 1.5 at 65 cc/hour. Edema- improved, on admission patient with pitting edema of his hands and lower extremities. S/P Lasix 40 mg IV 1. Pt Condition on Discharge: Stable Discharge Disposition: Discharge to SNF Discharge Time: > 30 minutes Discharge Instructions DIET: Follow Instructions for: On Tube Feeding Speech Therapy-Diet Recommends: Honey Thickened Liquids, Mechanical Soft Activities you can perform: See Additionl Instruction Other Activity Instructions: Per PT instructions. Follow up Referrals: Pulmonology - 2 Weeks with Bimal Borden MD New Medications: Lorazepam (Ativan) 1 Mg Tab 1 MG PO DAILY scallop binder for radiation therapy. Give 30 min prior. ON-CALL #30 Ref 0 TAB Fluconazole (Fluconazole) 100 Mg Tab 200 MG PO Q24H #20 TAB Changed Medications: Insulin Detemir Inj (Levemir Flextouch Pen Inj) 300 unit/3 ML Pen 18 UNITS SQ Q12HR NEB Blood Sugar Management #3 Ref 0 PEN (Changed from: 15 UNITS) Continued Medications: Albuterol Powder Inh (Proair Respiclick Inh) 90 Mcg/Act Aerp 2 PUFF INH Q4HR PRN SHORTNESS OF BREATH #1 Ref 0 INHALER Amiodarone (Amiodarone) 200 Mg Tab 200 MG PO DAILY afib #30 TAB Atorvastatin (Atorvastatin) 40 Mg Tab 40 MG PO HS Cholesterol Management #30 Ref 0 TAB Cholecalciferol (Vitamin D3) 1,000 Unit Tab 2000 UNITS PO DAILY Nutritional Supplement #1 Ref 0 BOTTLE Clonazepam (Klonopin) 0.5 Mg Tab 0.5 MG PO Q12HR anxiety/depression #60 Ref 0 TAB (This prescription has been renewed) Diltiazem CD 24 HR (Cardizem CD 24 HR) 240 Mg Caper 240 MG PO BID a-fib #60 CAP Docusate Sodium (Docusate Sodium) 100 Mg Cap 100 MG PO BID Prevent Constipation #60 Ref 0 CAP Dronabinol (Marinol) 5 Mg Cap 5 MG PO BID poor appetite #62 Ref 0 CAP Fentanyl Patch 72 HR (Duragesic Patch 72 HR) 50 Mcg/Hr Patch 1 PATCH TD Q72H Pain Management #10 PATCH (This prescription has been renewed) Insulin Aspart Inj (Novolog Inj) 1,000 Unit/10 Ml Vial 0 SQ ACHS Sliding Scale: 150-199=1 UNIT, 200-249=3 UNITS, 250-299=5 UNITS, 300- 347=7 UNITS, >349=9 UNITS Blood Sugar Management #10 Ref 0 ML Ipratropium-Albuterol Neb (Duoneb) 0.5-2.5 Mg/3 Ml Neb 1 AMPULE INH QID NEB Breathing #20 NEBULE Levofloxacin (Levaquin) 750 Mg Tab 750 MG PO DAILY Infection #7 Ref 0 TAB (This prescription has been renewed) Levothyroxine (Levothyroxine) 25 Mcg Tab 225 MCG PO DAILY Take 1 tablet (25mcg) with 200mcg tablet for a total dose of 225mcg Thyroid #30 Ref 0 TAB Morphine IR (Morphine IR) 15 Mg Tab 15 MG PO Q4H PRN PAIN SCALE 1 TO 5 #30 TAB (This prescription has been renewed) Multiple Vitamins W/ Minerals (Multivitamin Adults) 1 Tab 1 TAB PO DAILY Nutritional Supplement Ref 0 TAB Ondansetron (Zofran) 8 Mg Tab 8 MG PO Q8HR PRN NAUSEA OR VOMITING Ref 0 TAB Oyster Shell (Oyster Shell) 500 Mg Tab 500 MG PO DAILY Pantoprazole (Protonix) 40 Mg Tab 40 MG PO DAILY Reflux #30 Ref 0 TAB Ranitidine (Zantac) 150 Mg Tab 150 MG PO BID Reduce Stomach Acid #60 Ref 0 TAB Rivaroxaban (Xarelto) 20 Mg Tab 20 MG PO DAILY Blood Clot Prevention #30 Ref 0 TAB Saccharomyces Boulardii (Florastor) 250 Mg Cap 250 MG PO BID Nutritional Supplement Days 10 Ref 0 CAP Sennosides (Senna) 8.8 Mg/5 Ml Syp 15 MG PO BID Tiotropium Inh (Spiriva Handihaler) 18 Mcg Cap 18 MCG INH DAILY 1 capsule = 18 mcg COPD #30 Ref 0 CAP Trazodone (Trazodone) 100 Mg Tab 200 MG PO HS Control Depression #30 Ref 0 TAB Venlafaxine ER 24 HR (Effexor XR 24 HR) 75 Mg Cap 225 MG PO DAILY Depression Control #31 CAP Discontinued Medications: Azithromycin (Zithromax Z-Joe) 250 Mg Dspk 250 MG PO DIRECTED 500 MG (2 tabs) day 1, then 1 tab days 2-5. Infection Days 5 Ref 0 DSPK Furosemide (Lasix) 20 Mg Tab 20 MG PO DAILY Days 3 Ref 0 TAB Lactulose Liq (Lactulose Liq) 10 Gm/15 Ml Soln 30 ML PO DAILY Constipation #1 BOTTLE Nicotine Patch (Nicotine Patch) Unknown Strength Patch 1 PATCH T-DERMAL DAILY Smoking Cessation #30 Ref 0 PATCH Potassium Phosphate Monobasic (K-Phos) 500 Mg Tab 500 MG PO PCHS Electrolyte Replacement #10 Ref 0 TAB Prednisone (21) 10 mg tab Dose Pack (Prednisone (21) 10 mg tab Dose Pack) 10 Mg Pack 10 MG PO DIRECTED Inflammation #1 Ref 0 DSPK Sulfamethoxazole-Trimethoprim (Sulfamethoxazole-Trimethoprim) 800-160 Mg Tab 1 TAB PO BID Infection #14 Ref 0 TAB Tamsulosin (Flomax) 0.4 Mg Cap 0.4 MG PO HS Urination #30 CAP Sergio Lipscomb MD Mar 06, 2017 12:46
[2017-03-06] MEDS ORDERED: FLUC100T2 PO (15:09)
[2017-03-06] MEDS: FLUCONAZOLE 100 MG TAB PO SCH (15:30)
[2017-03-06 16:00] VITALS: BP 124/71; PULSE 86; RESP 20; TEMP 98.2; O2SAT 91
--- NOTE | 2017-03-06 19:09 | HHI.PR ---
Subjective Remarks 76 YOWM with Depression,COPD,CHf,AF Has Bilat infilt No Cough or sp No fever denies sob On RA Appetite improving Objective Vital Signs Vital Signs Date Time Temp Pulse Resp B/P Pulse Ox O2 Delivery O2 Flow Rate FiO2 03/06/17 18:18 18 03/06/17 16:00 98.2 86 20 124/71 91 03/06/17 08:00 97.3 83 18 121/64 93 03/06/17 04:06 96.8 77 18 111/59 93 03/06/17 00:00 97.6 80 18 107/61 93 03/05/17 23:30 79 03/05/17 20:00 97.5 82 18 113/65 93 I/O 03/05/17 03/05/17 03/05/17 03/06/17 03/06/17 03/06/17 07:00 15:00 23:00 07:00 15:00 23:00 Intake Total 600 ml 1028 ml 120 ml Output Total 2000 ml 750 ml 500 ml 1600 ml 200 ml 600 ml Balance -1400 ml -750 ml -500 ml -572 ml -80 ml -600 ml Intake Oral 600 ml 120 ml Tube Feeding 1028 ml Output Urine Total 2000 ml 750 ml 500 ml 1600 ml 200 ml 600 ml # Bowel Movements 0 0 Result Diagram: 03/06/17 0625 03/04/17 0742 Objective Remarks GENERAL: MBMN WM, NAD SKIN: Warm and dry. HEAD: Normocephalic. EYES: No scleral icterus. No injection or drainage. NECK: Supple, trachea midline. No JVD or lymphadenopathy. CARDIOVASCULAR: Regular rate and rhythm without murmurs, gallops, or rubs. RESPIRATORY: Breath sounds equal bilaterally. No accessory muscle use. GASTROINTESTINAL: Abdomen soft, non-tender, nondistended. MUSCULOSKELETAL: No cyanosis, or edema. BACK: Nontender without obvious deformity. No CVA tenderness. A/P Assessment and Plan Bilat lung infilt, likly resolving pn, clinically stable COPD CHF AF Major Depression PLAN: Cont abx Aerosol nebs stable on RA DC Plans underway. DW at Awaiting insurance approval for placement Bimal Borden MD Mar 06, 2017 19:09
[2017-03-06 20:00] VITALS: BP 133/72; PULSE 84; RESP 18; TEMP 98.6; O2SAT 92
[2017-03-06] MEDS: traZODone HCL 100 MG TAB PO SCH (21:17)
[2017-03-06] MEDS: ATORVASTATIN 40 MG TAB PO SCH (21:17)
[2017-03-06] MEDS: ONDANSETRON HCL 4 MG/2 ML VIAL IVP PRN (23:15)
[2017-03-07] VITALS (10 sets, daily range): BP systolic 113–136; BP diastolic 58–68; PULSE 79–86; RESP 18–20; TEMP 97.4–98.3; O2SAT 91–95
[2017-03-07] MEDS: MORPHINE SULFATE 4 MG/ML INJ IV PRN ×7 (00:33→21:00)
[2017-03-07] MEDS: SODIUM CHLOR 0.9% 1000 ML INJ 1,000 ML IV SCH ×2 (00:43→08:28)
[2017-03-07] MEDS: RESP: ALBUTEROL 2.5 MG/IPRATROPIUM 0.5 MG NEB (PRN) NEB (00:58)
[2017-03-07] MEDS: INSULIN ASPART SUPPLEMENTAL SCALE SQ SCH ×4 (05:44→21:30)
[2017-03-07] MEDS: CEFEPIME INJ 1,000 MG in SODIUM CHLORIDE 0.9% INJ 100 ML IV SCH ×2 (08:07→21:30)
[2017-03-07] MEDS: CALCIUM CARBONATE 500 MG CHEWABLE TAB CHEW SCH ×2 (08:17→20:57)
[2017-03-07] MEDS: VENLAFAXINE HCL XR 75 MG CAP PO SCH (08:17)
[2017-03-07] MEDS: RIVAROXABAN 20 MG TAB PO SCH (08:17)
[2017-03-07] MEDS: clonazePAM 0.5 MG TAB PO SCH ×2 (08:17→20:57)
[2017-03-07] MEDS: DOCUSATE SODIUM 100 MG CAP PO SCH ×2 (08:17→20:57)
[2017-03-07] MEDS: SODIUM CHLORIDE 0.9% FLUSH 10 ML FLUSH IV FLUSH SCH ×2 (08:18→21:00)
[2017-03-07] MEDS: DILTIAZEM-CD 240 MG CAP ER PO SCH ×2 (08:18→20:57)
[2017-03-07] MEDS: AMIODARONE 200 MG TAB PO SCH (08:18)
[2017-03-07] MEDS: FAMOTIDINE 20 MG TAB PO SCH ×2 (08:18→20:56)
[2017-03-07] MEDS: INSULIN DETEMIR 100 UNITS/ML VIAL SQ SCH ×2 (08:28→20:58)
[2017-03-07] MEDS: ONDANSETRON HCL 4 MG/2 ML VIAL IVP PRN ×3 (08:56→20:59)
[2017-03-07] MEDS: TIOTROPIUM BROMIDE 18 MCG INH INH SCH (09:01)
[2017-03-07] MEDS: VANCOMYCIN INJ 1,300 MG in SODIUM CHLORID 0.9% 500 ML INJ 500 ML IV SCH ×2 (11:09→23:32)
--- NOTE | 2017-03-07 14:17 | HHI.PR ---
Subjective Remarks Patient discharged on 03/06/17. Awaiting insurance authorization for SNF placement. Patient reports some constipation and bloating today. He was waiting to see if he would have a bowel movement without the suppository. Discussed with RN. He will now try the Dulcolax suppository Objective Vitals Vital Signs Date Time Temp Pulse Resp B/P Pulse Ox O2 Delivery O2 Flow Rate FiO2 03/07/17 12:00 97.9 79 18 136/68 95 03/07/17 08:00 97.7 83 20 121/64 91 03/07/17 07:45 81 03/07/17 04:00 97.6 80 18 125/61 95 03/07/17 01:00 92 21 03/07/17 00:00 97.7 82 18 126/68 91 03/06/17 20:00 98.6 84 18 133/72 92 03/06/17 20:00 84 03/06/17 18:18 18 03/06/17 16:00 98.2 86 20 124/71 91 I/O 03/06/17 03/06/17 03/06/17 03/07/17 03/07/17 03/07/17 07:00 15:00 23:00 07:00 15:00 23:00 Intake Total 1028 ml 120 ml 1301 ml 60 ml Output Total 1600 ml 200 ml 600 ml 1000 ml Balance -572 ml -80 ml 701 ml -940 ml Intake Oral 120 ml Tube Feeding 1028 ml 1241 ml Other 60 ml 60 ml Output Urine Total 1600 ml 200 ml 600 ml 1000 ml # Bowel Movements 0 Result Diagram: 03/06/17 0625 03/07/17 0646 Imaging Last Impressions Chest X-Ray 03/03/17 0000 Signed Impressions: Service Date/Time: Friday, March 03, 2017 13:22 - CONCLUSION: 1. Small bilateral effusions and diffuse interstitial prominence which would suggest some degree of failure. 2. Left basal infiltrate unchanged from previous. Jose Sims MD Head CT 02/27/172042 Signed Impressions: Service Date/Time: Monday, February 27, 2017 20:58 - CONCLUSION: 1. Mild cerebral atrophy and periventricular white matter small vessel ischemic changes bilaterally. 2. No acute infarct, acute hemorrhage, mass effect or extra- axial fluid collections. 3. Mucus retention cysts within the maxillary sinuses bilaterally and mucosal thickening within the sphenoid sinuses bilaterally. David Tafoya MD Abdomen X-Ray 02/27/17 0000 Signed Impressions: Service Date/Time: Monday, February 27, 2017 21:05 - CONCLUSION: 1. No free intraperitoneal air. 2. Small left pleural effusion. 3. Contrast noted throughout the stomach, small intestine and colon. David Tafoya MD Objective Remarks General: No acute distress. Cardiovascular: Regular rate and rhythm. No murmurs Respiratory: Lungs clear to auscultation bilaterally. No wheezes Abdomen: Soft, nontender, nondistended. peg tube in place, no erythema Musculoskeletal: No gross deformities. No edema. Neuro: Sensory and motor grossly intact. no focal deficits appreciated. 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 Encephalopathy Unclear etiology, likely related to infectious process. CT Head w/ no acute findings. Multiple admits w/ prolonged hospitalization and episodes of encephalopathy and recurrently PNA per . The patient encephalopathy mostly resolved. He is discharged to a assisted facility to continue rehabilitation. PNA: The patient treated for presumed HCAP. He was treated with broad spectrum coverage Cefepime and Vancomycin. Patient was followed by pulmonology. He was given breathing treatment and supplemental oxygen as needed. Respiratory symptoms significantly improved. He is discharge on Levaquin to continue antibiotics for an additional 7 days. UTI - Urine culture positive for Sunitha Albicans. Patient will continue treatment with fluconazole outpatient. Hypocalcemia- resolved A-fib: rate controlled. continue home Cardizem, Amiodarone and Xarelto. Squamous Cell CA of Epiglottis s/p evaluation by Radiation Oncology, patient to start radiation therapy today and will continue outpatient. S/p PEG tube, continue w/ Glucerna tube feeds and tray. DM: BS 555 on admission Levemir titrated up to 18 units Q12H Sliding scale w/ Accu-Cheks with SSI coverage continue TF Glucerna 1.5 at 65 cc/hour. Edema- improved, on admission patient with pitting edema of his hands and lower extremities. S/P Lasix 40 mg IV 1. Discharge once arrangements are made for assisted facility placement. Awaiting insurance company authorization. Problem Qualifiers (1) UTI (urinary tract infection): Qualified Code: T83.511D - Urinary tract infection associated with indwelling urethral catheter, subsequent encounter Sergio Lipscomb MD Mar 07, 2017 14:17
[2017-03-07] MEDS: FLUCONAZOLE 100 MG TAB PO SCH (15:00)
--- NOTE | 2017-03-07 20:07 | HHI.PR ---
Subjective Remarks 76 YOWM with Depression,COPD,CHf,AF Has Bilat infilt No Cough or sp No fever denies sob had coughing spell while eating broth Objective Vital Signs Vital Signs Date Time Temp Pulse Resp B/P Pulse Ox O2 Delivery O2 Flow Rate FiO2 03/07/17 18:15 18 95 03/07/17 16:00 97.4 86 20 113/58 92 03/07/17 12:00 97.9 79 18 136/68 95 03/07/17 08:00 97.7 83 20 121/64 91 03/07/17 07:45 81 03/07/17 04:00 97.6 80 18 125/61 95 03/07/17 01:00 92 21 03/07/17 00:00 97.7 82 18 126/68 91 I/O 03/06/17 03/06/17 03/06/17 03/07/17 03/07/17 03/07/17 07:00 15:00 23:00 07:00 15:00 23:00 Intake Total 1028 ml 120 ml 1301 ml 60 ml 2241 ml Output Total 1600 ml 200 ml 600 ml 1000 ml Balance -572 ml -80 ml 701 ml -940 ml 2241 ml Intake Oral 120 ml IV Total 1825 ml Tube Feeding 1028 ml 1241 ml 356 ml Other 60 ml 60 ml 60 ml Output Urine Total 1600 ml 200 ml 600 ml 1000 ml # Bowel Movements 0 2 Result Diagram: 03/06/17 0625 03/07/17 0646 Objective Remarks GENERAL: MBMN WM, NAD SKIN: Warm and dry. HEAD: Normocephalic. EYES: No scleral icterus. No injection or drainage. NECK: Supple, trachea midline. No JVD or lymphadenopathy. CARDIOVASCULAR: Regular rate and rhythm without murmurs, gallops, or rubs. RESPIRATORY: Breath sounds equal bilaterally. No accessory muscle use. GASTROINTESTINAL: Abdomen soft, non-tender, nondistended. MUSCULOSKELETAL: No cyanosis, or edema. BACK: Nontender without obvious deformity. No CVA tenderness. A/P Assessment and Plan Bilat lung infilt, likly resolving pn, clinically stable COPD CHF AF Major Depression PLAN: Cont abx Aerosol nebs stable on RA DC Plans underway. DW at Awaiting insurance approval for placement Supplemental TF Bimal Borden MD Mar 07, 2017 20:07
[2017-03-07] MEDS: ATORVASTATIN 40 MG TAB PO SCH (20:56)
[2017-03-07] MEDS: traZODone HCL 100 MG TAB PO SCH (20:57)
[2017-03-08] VITALS (8 sets, daily range): BP systolic 122–149; BP diastolic 65–72; PULSE 77–83; RESP 19–21; TEMP 97.6–98.2; O2SAT 91–95
[2017-03-08] MEDS: SODIUM CHLORIDE 0.9% FLUSH 10 ML FLUSH IV FLUSH PRN ×2 (00:49→05:43)
[2017-03-08] MEDS: MORPHINE SULFATE 4 MG/ML INJ IV PRN ×5 (00:49→22:25)
[2017-03-08] MEDS: SODIUM CHLOR 0.9% 1000 ML INJ 1,000 ML IV SCH (05:51)
[2017-03-08] MEDS: INSULIN ASPART SUPPLEMENTAL SCALE SQ SCH ×3 (06:01→16:00)
[2017-03-08] MEDS: CALCIUM CARBONATE 500 MG CHEWABLE TAB CHEW SCH ×2 (08:18→22:25)
[2017-03-08] MEDS: clonazePAM 0.5 MG TAB PO SCH ×2 (08:19→22:24)
[2017-03-08] MEDS: CEFEPIME INJ 1,000 MG in SODIUM CHLORIDE 0.9% INJ 100 ML IV SCH ×2 (08:19→22:24)
[2017-03-08] MEDS: RIVAROXABAN 20 MG TAB PO SCH (08:19)
[2017-03-08] MEDS: DOCUSATE SODIUM 100 MG CAP PO SCH ×2 (08:20→22:46)
[2017-03-08] MEDS: FAMOTIDINE 20 MG TAB PO SCH ×2 (08:20→22:24)
[2017-03-08] MEDS: DILTIAZEM-CD 240 MG CAP ER PO SCH ×2 (08:20→22:25)
[2017-03-08] MEDS: AMIODARONE 200 MG TAB PO SCH (08:20)
[2017-03-08] MEDS: VENLAFAXINE HCL XR 75 MG CAP PO SCH (08:20)
[2017-03-08] MEDS: INSULIN DETEMIR 100 UNITS/ML VIAL SQ SCH ×2 (08:21→22:45)
[2017-03-08] MEDS: TIOTROPIUM BROMIDE 18 MCG INH INH SCH (08:41)
[2017-03-08] MEDS: SODIUM CHLORIDE 0.9% FLUSH 10 ML FLUSH IV FLUSH SCH ×2 (09:00→22:26)
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
[2017-03-08] MEDS: FLUCONAZOLE 100 MG TAB PO SCH (14:27)
[2017-03-08] MEDS: VANCOMYCIN INJ 1,300 MG in SODIUM CHLORID 0.9% 500 ML INJ 500 ML IV SCH (15:23)
[2017-03-08] MEDS: ONDANSETRON HCL 4 MG/2 ML VIAL IVP PRN (15:29)
--- NOTE | 2017-03-08 19:03 | HHI.PR ---
Subjective Remarks 76 YOWM with Depression,COPD,CHf,AF Has Bilat infilt No Cough or sp No fever has mild sob and wheezing Sat 96% Objective Vital Signs Vital Signs Date Time Temp Pulse Resp B/P Pulse Ox O2 Delivery O2 Flow Rate FiO2 03/08/17 16:00 97.9 83 20 131/66 95 03/08/17 15:00 82 03/08/17 14:31 15 03/08/17 13:01 15 03/08/17 12:00 97.6 82 21 128/65 91 03/08/17 08:00 97.7 83 20 122/66 92 03/08/17 07:00 82 03/08/17 00:00 98.2 77 20 127/68 94 03/07/17 20:00 98.3 83 20 133/68 94 I/O 03/07/17 03/07/17 03/07/17 03/08/17 03/08/17 03/08/17 07:00 15:00 23:00 07:00 15:00 23:00 Intake Total 60 ml 2241 ml 900 ml 600 ml Output Total 1000 ml 1800 ml 750 ml Balance -940 ml 2241 ml -900 ml -150 ml Intake Oral 600 ml IV Total 1825 ml Tube Feeding 356 ml 900 ml Other 60 ml 60 ml Output Urine Total 1000 ml 1800 ml 750 ml # Bowel Movements 2 0 Result Diagram: 03/06/17 0625 03/07/17 0646 Objective Remarks GENERAL: MBMN WM, NAD SKIN: Warm and dry. HEAD: Normocephalic. EYES: No scleral icterus. No injection or drainage. NECK: Supple, trachea midline. No JVD or lymphadenopathy. CARDIOVASCULAR: Regular rate and rhythm without murmurs, gallops, or rubs. RESPIRATORY: Breath sounds equal bilaterally. No accessory muscle use. GASTROINTESTINAL: Abdomen soft, non-tender, nondistended. MUSCULOSKELETAL: No cyanosis, or edema. BACK: Nontender without obvious deformity. No CVA tenderness. A/P Assessment and Plan Bilat lung infilt, likly resolving pn, clinically stable COPD CHF AF Major Depression PLAN: Cont abx Aerosol nebs stable on RA DW at BS Awaiting insurance approval for placement Supplemental TF Duoenebs q 6 hrs prn Bimal Borden MD Mar 08, 2017 19:03
[2017-03-08] MEDS: RESP: ALBUTEROL 2.5 MG/IPRATROPIUM 0.5 MG NEB (PRN) NEB (20:09)
[2017-03-08] MEDS: traZODone HCL 100 MG TAB PO SCH (22:24)
[2017-03-08] MEDS: ATORVASTATIN 40 MG TAB PO SCH (22:25)
[2017-03-09] VITALS: BP 132/68; PULSE 89; RESP 19; TEMP 97.5; O2SAT 98
[2017-03-09] MEDS: INSULIN ASPART SUPPLEMENTAL SCALE SQ SCH ×4 (00:15→17:58)
[2017-03-09] MEDS: fentaNYL 50 MCG/HR PATCH T-DERMAL SCH (00:20)
[2017-03-09] MEDS: REMOVE OLD DURAGESIC (FENTANYL) PATCH T-DERMAL SCH (00:21)
[2017-03-09] MEDS: VANCOMYCIN INJ 1,300 MG in SODIUM CHLORID 0.9% 500 ML INJ 500 ML IV SCH ×2 (00:32→11:05)
[2017-03-09] MEDS: SODIUM CHLORIDE 0.9% FLUSH 10 ML FLUSH IV FLUSH PRN ×2 (01:31→03:19)
[2017-03-09] MEDS: MORPHINE SULFATE 4 MG/ML INJ IV PRN ×4 (01:31→15:03)
[2017-03-09] MEDS: ONDANSETRON HCL 4 MG/2 ML VIAL IVP PRN ×2 (03:18→15:03)
[2017-03-09 04:00] VITALS: BP 115/82; PULSE 84; RESP 18; TEMP 98; O2SAT 99
[2017-03-09 08:00] VITALS: PULSE 81
[2017-03-09] MEDS: clonazePAM 0.5 MG TAB PO SCH (08:41)
[2017-03-09] MEDS: FAMOTIDINE 20 MG TAB PO SCH (08:41)
[2017-03-09] MEDS: AMIODARONE 200 MG TAB PO SCH (08:41)
[2017-03-09] MEDS: RIVAROXABAN 20 MG TAB PO SCH (08:41)
[2017-03-09] MEDS: DILTIAZEM-CD 240 MG CAP ER PO SCH (08:41)
[2017-03-09] MEDS: CALCIUM CARBONATE 500 MG CHEWABLE TAB CHEW SCH (08:41)
[2017-03-09] MEDS: DOCUSATE SODIUM 100 MG CAP PO SCH (08:41)
[2017-03-09] MEDS: VENLAFAXINE HCL XR 75 MG CAP PO SCH (08:41)
[2017-03-09] MEDS: INSULIN DETEMIR 100 UNITS/ML VIAL SQ SCH (08:41)
[2017-03-09] MEDS: CEFEPIME INJ 1,000 MG in SODIUM CHLORIDE 0.9% INJ 100 ML IV SCH (08:41)
[2017-03-09] MEDS: SODIUM CHLORIDE 0.9% FLUSH 10 ML FLUSH IV FLUSH SCH (08:42)
[2017-03-09] MEDS: SODIUM CHLOR 0.9% 1000 ML INJ 1,000 ML IV SCH (08:43)
[2017-03-09] MEDS: TIOTROPIUM BROMIDE 18 MCG INH INH SCH (08:44)
[2017-03-09 08:47] VITALS: BP 127/60; PULSE 83; RESP 20; TEMP 96.6; O2SAT 93
[2017-03-09] MEDS ORDERED: INSU1INJ5 SQ (11:02)
[2017-03-09] MEDS ORDERED: TRAZ100T4 PO (11:02)
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
[2017-03-09] MEDS: FLUCONAZOLE 100 MG TAB PO SCH (12:08)
[2017-03-09 14:02] VITALS: BP 134/63; PULSE 82; RESP 20; TEMP 98; O2SAT 92
[2017-03-09] MEDS ORDERED: LORazepam 2 MG/ML VIAL IV PUSH ONE (15:15)
--- NOTE | 2017-03-09 19:15 | HHI.PR ---
Subjective Remarks 76 YOWM with Depression,COPD,CHf,AF Has Bilat infilt No Cough or sp No fever has mild sob and wheezing Sat 96% had Radiation treatment today Objective Vital Signs Vital Signs Date Time Temp Pulse Resp B/P Pulse Ox O2 Delivery O2 Flow Rate FiO2 03/09/17 14:02 98.0 82 20 134/63 92 03/09/17 08:47 96.6 83 20 127/60 93 03/09/17 08:00 81 03/09/17 08:00 81 03/09/17 04:00 98.0 84 18 115/82 99 03/09/17 00:00 97.5 89 19 132/68 98 03/08/17 20:58 98.1 83 19 149/72 92 03/08/17 20:10 91 I/O 03/08/17 03/08/17 03/08/17 03/09/17 03/09/17 03/09/17 07:00 15:00 23:00 07:00 15:00 23:00 Intake Total 900 ml 600 ml 120 ml Output Total 1800 ml 750 ml 250 ml 400 ml 1025 ml 350 ml Balance -900 ml -150 ml -130 ml -400 ml -1025 ml -350 ml Intake Oral 600 ml 120 ml Tube Feeding 900 ml Output Urine Total 1800 ml 750 ml 250 ml 400 ml 1025 ml 350 ml # Bowel Movements 0 Result Diagram: 03/06/17 0625 03/09/17 0629 Objective Remarks GENERAL: MBMN WM, NAD SKIN: Warm and dry. HEAD: Normocephalic. EYES: No scleral icterus. No injection or drainage. NECK: Supple, trachea midline. No JVD or lymphadenopathy. CARDIOVASCULAR: Regular rate and rhythm without murmurs, gallops, or rubs. RESPIRATORY: Breath sounds equal bilaterally. No accessory muscle use. GASTROINTESTINAL: Abdomen soft, non-tender, nondistended. MUSCULOSKELETAL: No cyanosis, or edema. BACK: Nontender without obvious deformity. No CVA tenderness. A/P Assessment and Plan Bilat lung infilt, likly resolving pn, clinically stable COPD CHF AF Major Depression PLAN: Cont abx Aerosol nebs stable on RA DW at BS Duoenebs q 6 hrs prn DC plans for [facility] Will get out pt radiation treatments Bimal Borden MD Mar 09, 2017 19:15
[2017-03-11] MEDS ORDERED: PHARMACY ORDERED LAB ONE (11:45)
--- NOTE | 2017-03-14 14:29 | MB ---
cc: DEDE AGUAYO DATE OF CONSULTATION 03/14/17 REASON FOR CONSULTATION COPD. Laryngeal cancer, question endobronchial obstruction. HISTORY OF PRESENT ILLNESS Mr. Santana is a 76-year-old male with history of laryngeal cancer receiving radiation therapy, has received 5 treatments thus far. He lives at the nursing facility, was brought to the emergency room because of increasing shortness of breath and vomiting. The patient was recently on the hospital discharge about 4 days ago. He had nausea and vomiting for 3 days now while in the custodial after tube feeding. The patient as well complains of severe back pain. His shortness of breath has improved since he was hospitalized. He is on oxygen therapy at present. Apparently, his oxygen was discontinued since his hospital discharge because of improved oxygenation. PAST MEDICAL HISTORY His past medical history is that of laryngeal cancer COPD, atrial fibrillation on Xarelto, hypertension, diabetes mellitus, gastroparesis, had a T&A in the past. Cardiac ablation, hiatal hernia repair and a cholecystectomy MEDICATIONS Medications include: 1. Trazodone. 2. Levemir. 3. Fluconazole. 4. Levaquin. 5. Klonopin. 6. Morphine. 7. Duragesic. 8. Marinol. 9. Effexor. 10. Amiodarone. 11. DuoNeb. 12. Cardizem. 13. Zantac. 14. Atorvastatin. 15. Spiriva. 16. Xarelto. ALLERGIES FLAGYL, FLOXIN, LATEX, ADHESIVE TAPE. FAMILY HISTORY Noncontributory. SOCIAL HISTORY Long heavy smoking history, stopped in December of this year. Does not drink any alcohol. Does not use drugs. PHYSICAL EXAMINATION GENERAL: On exam the patient is alert. VITAL SIGNS: Temperature 98.6, pulse 80, respirations 18, blood pressure 130/60, oxygen saturation 95% on 3 liters oxygen nasal cannula. HEENT: Exam unremarkable. Eyes without icterus. NECK: Without adenopathy, thyroid enlargement. Central trachea. CHEST: Without dullness to percussion. Few scattered rhonchi on auscultation. CARDIAC EXAMINATION: PMI not appreciated. S1-S2 audible. No murmur or rub. ABDOMEN: Lax, bowel sounds audible. EXTREMITIES: No clubbing, cyanosis. 1+ edema. IMAGING STUDIES CT of the chest left lower lobe atelectasis, soft tissue density in the left lower lobe noted, significance unclear. Bilateral pleural effusions and atelectasis noted as well. There is no evidence of pulmonary embolization. LABORATORY DATA White count 13,000, hemoglobin 12, hematocrit 37, platelets 194,000, sodium 137, BUN 26, creatinine 0.6. Arterial blood gas, pH 7.49, pCO2 38, pO2 63 on 3 liters oxygen nasal cannula done now. IMPRESSION 1. Hypoxic respiratory failure. 2. COPD. 3. Laryngeal cancer. 4. Atrial fibrillation. 5. Hypertension. 6. Diabetes mellitus. 7. Gastroparesis. 8. Severe back pain. PLAN The patient will be maintained on oxygen therapy as well as bronchodilator therapy. Intravenous steroids would be appropriate. He was started on antibiotic therapy and appropriately so. The finding of CT scan of the chest will be further evaluated; however, in view of the patient's in health in general and his current symptomatology will hold off bronchoscopic examination until the patient is in a more stable status. Pain medication to control the pain would be appropriate as well. A CT scan has been ordered to identify the possibility of metastatic disease. If need be a bone scan will be undertaken as well. I do thank you for asking me to partake in Mr. Santana' care. His prognosis is poor. Dede Aguayo MD WWW/EO /1:59 PM /2:09 PM
== END 2017-03-09 19:48 | DRG 193 ==
LOC: NEPE 20:25 → NEDA 22:43 → N05B 02-28 04:50
PROVIDERS: ADMIT Family Medicine; ATTEND Family Medicine
DX: J18.9 Pneumonia, unspecified organism (principal); G93.40 Encephalopathy, unspecified; L89.311 Pressure ulcer of right buttock, stage 1; E10.65 Type 1 diabetes mellitus with hyperglycemia; K31.84 Gastroparesis; E10.43 Type 1 diabetes mellitus with diabetic autonomic (poly)neuropathy; E87.1 Hypo-osmolality and hyponatremia; N39.0 Urinary tract infection, site not specified; C32.1 Malignant neoplasm of supraglottis; R62.7 Adult failure to thrive; Y95 Nosocomial condition; J44.9 Chronic obstructive pulmonary disease, unspecified; K59.00 Constipation, unspecified; I50.9 Heart failure, unspecified; I25.10 Atherosclerotic heart disease of native coronary artery without angina pectoris; E03.9 Hypothyroidism, unspecified; F32.9 Major depressive disorder, single episode, unspecified; G47.30 Sleep apnea, unspecified; M19.90 Unspecified osteoarthritis, unspecified site; I48.91 Unspecified atrial fibrillation; E83.51 Hypocalcemia; F41.9 Anxiety disorder, unspecified; I10 Essential (primary) hypertension; K21.9 Gastro-esophageal reflux disease without esophagitis; K44.9 Diaphragmatic hernia without obstruction or gangrene; Z72.0 Tobacco use; Z96.612 Presence of left artificial shoulder joint; Z91.09 Other allergy status, other than to drugs and biological substances; Z86.14 Personal history of Methicillin resistant Staphylococcus aureus infection; Z91.040 Latex allergy status; Z79.4 Long term (current) use of insulin; Z88.1 Allergy status to other antibiotic agents; Z91.5 Personal history of self-harm; Z93.1 Gastrostomy status; Z79.02 Long term (current) use of antithrombotics/antiplatelets; Z90.49 Acquired absence of other specified parts of digestive tract
CPT/HCPCS: 70450; 71010; 71020; 74000; 76937; 77386; 77387; 80048; 80053; 80202; 81001; 82010; 82550; 82565; 82948; 83605; 83735; 84100; 84155; 84443; 84484; 85007; 85025; 85027; 85610; 85730; 87040; 87086; 93005; 94640; 94667; 94668; 96361; 96365; 96367; J0456; J0610; J0692; J0696; J1815; J1940; J2060; J2270; J2405; J3370; J7030; J7040; J7050

== ENCOUNTER 2017-03-13 10:57 | Inpatient (IN) | payer MEDICARE, OTHER ==
[~2017-03-13] VITALS: Ht 180.3 cm; Wt 84.8 kg
[2017-03-13] VITALS (10 sets, daily range): BP systolic 146–166; BP diastolic 57–94; PULSE 84–94; RESP 16–20; TEMP 98–99.8; O2SAT 91–98
[~2017-03-13 10:57] MED LIST changes: +FLUC100T2 PO; -FURO1TAB62 PO; -K-PHTAB PO; -LACT10SO PO; +LORA-474 PO; -NICO7DIS2 T-DERMAL; -PRED10PA PO; -SULF1TAB23 PO; -TAMS5CAP PO; -ZITHTAB PO
[2017-03-13] MEDS ORDERED: methylPREDNISolone SOD SUCC 125 MG/2 ML VIAL IV PUSH ONE (12:15)
[2017-03-13] MEDS ORDERED: CEFEPIME INJ 2,000 MG in SODIUM CHLORIDE 0.9% INJ 100 ML IV ONE (12:15)
[2017-03-13] MEDS ORDERED: ONDANSETRON HCL 4 MG/2 ML VIAL IV PRN (12:15)
--- NOTE | 2017-03-13 12:22 | PD ---
HPI Chief Complaint: Respiratory Distress Time Seen by Provider: 12:18 Travel History International Travel<30 days: No Contact w/Intl Traveler<30days: No Traveled to known affect area: No History of Present Illness HPI Patient comes back to the emergency department after being released from the hospital 4 days ago to an USP and dyspnea. states that she her 's shortness of breath got worse last night has not been acting himself today. Patient states that he feels wheezing and tightness throughout his chest. Patient states that got worse overnight. Patient denies anything making it better. Denies any fevers, nausea, diarrhea, or abdominal pain. Patient reports he did vomit once yesterday. PFSH Past Medical History Hx Anticoagulant Therapy: Yes (XARELTO) Arthritis: Yes Asthma: No Atrial Fibrillation: Yes Autoimmune Disease: No Blood Disorders: No Anxiety: Yes Depression: No Heart Rhythm Problems: Yes (afib- aflutter) Cancer: Yes (Throat cancer) Cardiovascular Problems: Yes High Cholesterol: No Chemotherapy: No Chest Pain: Yes Congestive Heart Failure: Yes COPD: Yes Cerebrovascular Accident: No Diabetes: Yes (Type 1 since age 23.) Diminished Hearing: No Endocrine: Yes GERD: Yes Genitourinary: No Hepatitis: No Hiatal Hernia: Yes Hypertension: Yes Immune Disorder: No Implanted Vascular Access Dvce: Yes Musculoskeletal: Yes Neurologic: Yes Psychiatric: No Reproductive: No Respiratory: Yes Radiation Therapy: No Sleep Apnea: Yes Thyroid Disease: Yes Ulcer: No Past Surgical History Abdominal Surgery: Yes (gallbladder removal) AICD: No Body Medical Devices: left shoulder metal plate with approx. 16 screws Cardiac Surgery: Yes (Ablation x2, cath) Cholecystectomy: Yes Ear Surgery: No Endocrine Surgery: No Eye Surgery: Yes (cataracts) Genitourinary Surgery: No Gynecologic Surgery: No Joint Replacement: Yes (Left shoulder) Oral Surgery: Yes (tonsilectomy) Pacemaker: No Thoracic Surgery: No Tonsillectomy: Yes Other Surgery: Yes Social History Alcohol Use: No Tobacco Use: No Substance Use: No Allergies-Medications (Allergen,Severity, Reaction): Coded Allergies: Flagyl (Verified Allergy, Severe, 01/27/17) Floxcin (Verified Allergy, Severe, 01/27/17) Latex (Verified Allergy, Severe, 01/27/17) Adhesives (Verified Allergy, Mild, 01/27/17) *MDRO Multi-Drug Resistant Organism (Verified Adverse Reaction, Unknown, ) 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/17 Reported Meds & Prescriptions Reported Meds & Active Scripts Active Levemir Flextouch Pen Inj (Insulin Detemir) 300 unit/3 ML Pen 20 Units SQ Q12HR NEB Trazodone (Trazodone HCl) 100 Mg Tab 100 Mg PO HS Fluconazole 100 Mg Tab 200 Mg PO Q24H Ativan (Lorazepam) 1 Mg Tab 1 Mg PO DAILY call worker person for radiation therapy. Give 30 min prior. Levaquin (Levofloxacin) 750 Mg Tab 750 Mg PO DAILY Klonopin (Clonazepam) 0.5 Mg Tab 0.5 Mg PO Q12HR Morphine IR (Morphine Sulfate) 15 Mg Tab 15 Mg PO Q4H PRN Duragesic Patch 72 HR (Fentanyl) 50 Mcg/Hr Patch 1 Patch TD Q72H Marinol (Dronabinol) 5 Mg Cap 5 Mg PO BID Effexor XR 24 HR (Venlafaxine HCl) 75 Mg Cap 225 Mg PO DAILY Amiodarone (Amiodarone HCl) 200 Mg Tab 200 Mg PO DAILY Duoneb (Ipratropium-Albuterol Neb) 0.5-2.5 Mg/3 Ml Neb 1 Ampule INH QID NEB Cardizem CD 24 HR (Diltiazem CD 24 HR) 240 Mg Caper 240 Mg PO BID Zantac (Ranitidine HCl) 150 Mg Tab 150 Mg PO BID Protonix (Pantoprazole Sodium) 40 Mg Tab 40 Mg PO DAILY Atorvastatin (Atorvastatin Calcium) 40 Mg Tab 40 Mg PO HS Spiriva Handihaler (Tiotropium Inh) 18 Mcg Cap 18 Mcg INH DAILY 1 capsule = 18 mcg Xarelto (Rivaroxaban) 20 Mg Tab 20 Mg PO DAILY Reported Florastor (Saccharomyces Boulardii) 250 Mg Cap 250 Mg PO BID 10 Days Novolog Inj (Insulin Aspart) 1,000 Unit/10 Ml Vial 0 SQ ACHS Sliding Scale: 150-199=1 UNIT, 200-249=3 UNITS, 250-299=5 UNITS, 300-347=7 UNITS, >349=9 UNITS Levothyroxine (Levothyroxine Sodium) 25 Mcg Tab 225 Mcg PO DAILY Take 1 tablet (25mcg) with 200mcg tablet for a total dose of 225mcg Zofran (Ondansetron HCl) 8 Mg Tab 8 Mg PO Q8HR PRN Vitamin D3 (Cholecalciferol) 1,000 Unit Tab 2,000 Units PO DAILY Oyster Shell 500 Mg Tab 500 Mg PO DAILY Senna (Sennosides) 8.8 Mg/5 Ml Syp 15 Mg PO BID Multivitamin Adults (Multiple Vitamins W/ Minerals) 1 Tab 1 Tab PO DAILY Docusate Sodium 100 Mg Cap 100 Mg PO BID Proair Respiclick Inh (Albuterol Sulfate) 90 Mcg/Act Aerp 2 Puff INH Q4HR PRN Review of Systems Except as stated in HPI: all other systems reviewed are Neg Physical Exam Narrative GENERAL: Well-developed, overly nourished, in mild respiratory distress, and non -ill appearing. SKIN: Focused skin assessment warm and dry. HEAD: Atraumatic. Normocephalic. EYES: Pupils equal and round. EOMI. No scleral icterus. No injection or drainage. ENT: No nasal bleeding or discharge. Mucous membranes pink and moist. NECK: Trachea midline. Supple. No nuclear rigidity. CARDIOVASCULAR: Regular rate and rhythm. No murmur appreciated. RESPIRATORY: Accessory muscle use. Mild respiratory distress. Wheezing and crackles noted throughout. Breath sounds equal bilaterally. GASTROINTESTINAL: Abdomen soft, non-tender, nondistended. Hepatic and splenic margins not palpable. No pulsatile mass. PEG tube noted. Dressing is Dry clean intact. No signs of infection. MUSCULOSKELETAL: No obvious deformities. No clubbing. No cyanosis. No edema. Full range of motion. NEUROLOGICAL: Awake and alert. No obvious cranial nerve deficits. Motor grossly within normal limits. Normal speech. PSYCHIATRIC: Appropriate mood and affect; insight and judgment normal. Data Data Last Documented VS Vital Signs Date Time Temp Pulse Resp B/P Pulse Ox O2 Delivery O2 Flow Rate FiO2 03/13/17 14:42 94 Nasal Cannula 3 03/13/17 12:14 87 20 156/73 03/13/17 11:56 98.0 Orders Electrocardiogram (03/13/17 12:09) Complete Blood Count With Diff (03/13/17 12:09) Comprehensive Metabolic Panel (03/13/17 12:09) Lactic Acid Sepsis Protocol (03/13/17 12:09) Urinalysis - C+S If Indicated (03/13/17 12:09) Blood Culture (03/13/17 12:09) Chest, Single Ap (03/13/17 12:09) Arterial Blood Gas (Abg) (03/13/17 12:09) Iv Access Insert/Monitor (03/13/17 12:09) Oximetry (03/13/17 12:09) Oxygen Administration (03/13/17 12:09) Sodium Chloride 0.9% Flush (Ns Flush) (03/13/17 12:15) Cefepime Inj (Maxipime Inj) (03/13/17 12:15) Ondansetron Inj (Zofran Inj) (03/13/17 12:15) Albuterol-Ipratropium Neb (Duoneb Neb) (03/13/17 12:15) Ct Pulmonary Angiogram (03/13/17 ) Methylprednisolone So Succ Inj (Solumedr (03/13/17 12:15) B-Type Natriuretic Peptide (03/13/17 12:20) Ckmb (Isoenzyme) Profile (03/13/17 12:20) Troponin I (03/13/17 12:20) Azithromycin Inj (Zithromax Inj) (03/13/17 14:08) Morphine Inj (Morphine Inj) (03/13/17 15:00) Admit Order (Ed Use Only) (03/13/17 14:57) Labs Laboratory Tests Test 03/13/17 03/13/17 03/13/17 12:52 13:00 13:15 Blood Gas Puncture Site RT RADIAL Blood Gas Patient Temperature 98.6 Blood Gas HCO3 31 mmol/L Blood Gas Base Excess 6.6 mmol/L Blood Gas Oxygen Saturation 87 % Arterial Blood pH 7.45 Arterial Blood Partial 45 mmHg Pressure CO2 Arterial Blood Partial 53 mmHG Pressure O2 Arterial Blood Oxygen Content 15.6 Vol % Arterial Blood 2.5 % Carboxyhemoglobin Arterial Blood Methemoglobin 0.4 % Blood Gas Hemoglobin 12.8 G/DL Oxygen Delivery Device NASAL CANNULA Blood Gas Liter Flow 3 L/M White Blood Count 12.8 TH/MM3 Red Blood Count 4.53 MIL/MM3 Hemoglobin 12.7 GM/DL Hematocrit 39.5 % Mean Corpuscular Volume 87.3 FL Mean Corpuscular Hemoglobin 28.0 PG Mean Corpuscular Hemoglobin 32.1 % Concent Red Cell Distribution Width 21.5 % Platelet Count 257 TH/MM3 Mean Platelet Volume 7.7 FL Neutrophils (%) (Auto) 92.2 % Lymphocytes (%) (Auto) 3.3 % Monocytes (%) (Auto) 3.9 % Eosinophils (%) (Auto) 0.0 % Basophils (%) (Auto) 0.6 % Neutrophils # (Auto) 11.8 TH/MM3 Lymphocytes # (Auto) 0.4 TH/MM3 Monocytes # (Auto) 0.5 TH/MM3 Eosinophils # (Auto) 0.0 TH/MM3 Basophils # (Auto) 0.1 TH/MM3 CBC Comment DIFF FINAL Differential Comment Urine Color YELLOW Urine Turbidity HAZY Urine pH 7.0 Urine Specific Britton 1.017 Urine Protein 30 mg/dL Urine Glucose (UA) 70 mg/dL Urine Ketones NEG mg/dL Urine Occult Blood NEG Urine Nitrite NEG Urine Bilirubin NEG Urine Urobilinogen LESS THAN 2.0 MG/DL Urine Leukocyte Esterase NEG Urine RBC 5 /hpf Urine WBC 4 /hpf Urine Squamous Epithelial 1 /hpf Cells Urine Amorphous Sediment OCC Urine Bacteria OCC /hpf Microscopic Urinalysis Comment CULT NOT INDICATED Sodium Level 133 MEQ/L Potassium Level 4.5 MEQ/L Chloride Level 95 MEQ/L Carbon Dioxide Level 32.1 MEQ/L Anion Gap 6 MEQ/L Blood Urea Nitrogen 21 MG/DL Creatinine 0.65 MG/DL Estimat Glomerular Filtration 120 ML/MIN Rate Random Glucose 291 MG/DL Lactic Acid Level 0.9 mmol/L Calcium Level 8.5 MG/DL Total Bilirubin 0.6 MG/DL Aspartate Amino Transf 16 U/L (AST/SGOT) Alanine Aminotransferase 28 U/L (ALT/SGPT) Alkaline Phosphatase 106 U/L B-Type Natriuretic Peptide 24 PG/ML Total Protein 6.0 GM/DL Albumin 2.3 GM/DL Total Creatine Kinase 30 U/L Troponin I LESS THAN 0.02 NG/ML MDM Medical Decision Making Medical Screen Exam Complete: Yes Emergency Medical Condition: Yes Interpretation(s) EKG reviewed by Dr. Xiong, shows sinus rhythm with ventricular rate of 86. No STEMI. Differential Diagnosis Pneumonia, metastatic disease, PE, pleural effusion, other Narrative Course Patient seen and examined. Initial laboratory and radiological studies were obtained and reviewed, with the CTA pending currently. Discussed patient with Dr. Xiong, Evaluate Patient for Observation to the Hospital for Pneumonia Noted on Chest X-Ray. Discussed all findings and plan of care with patient and his . Patient is agreeable for admission. All questions were answered. CT results obtained results relayed to Dr. Jenkins. Dr. Xiong discussed patient with Dr. Aguayo, process designer on-call. Physician Communication Physician Communication [id number] Jenkins, who is agreeable to admit the patient. Diagnosis Primary Impression: PNA (pneumonia) Qualified Code: J18.1 - Pneumonia of left lower lobe due to infectious organism Admitting Information Admitting Physician Requests: Admit Condition: Stable Jean-Pierre Day Mar 13, 2017 12:22
[2017-03-13] MEDS: RESP: ALBUTEROL 2.5 MG/IPRATROPIUM 0.5 MG NEB (SCH) INH ×2 (12:45→12:46)
--- NOTE | 2017-03-13 12:48 | RADRPT ---
EXAM DATE/TIME: 03/13/2017 12:27 [facility] COMPARISON: CHEST SINGLE AP, February 27, 2017, 20:57. INDICATIONS : Wheezing, lack of appetite MEDICAL HISTORY : Chronic obstructive pulmonary disease. Congestive heart failure. throat cancer, pneumonia, atria l fibrillation, urinary tract infection SURGICAL HISTORY : ablasion, feeding tube ENCOUNTER: Initial ACUITY: 1 day LOCATION: Bilateral chest FINDINGS: There is abrupt termination of the left mainstem bronchus air column with abnormal opacity at the lef t mid to lower lung zone felt to represent left lower lobe collapse consolidation. This is increased from previous study. The right lung is clear. There is minimal pleural thickening right lateral aspec t of the minor fissure. Osseous structures are intact. CONCLUSION: Mild volume loss left hemithorax with left lower lobe collapse suspected with dense consolidative opa city seen and left mainstem bronchus air column cutoff noted. Earl Araujo MD on March 13, 2017 at 12:45 Board Certified Radiologist. This report was verified electronically.
[2017-03-13 13:02] LABS: BLOOD GAS BASE EXCESS 6.6 mmol/L (-2-2); BLOOD GAS CARBOXYHEMOGLOBIN 2.5 % (0-4); BLOOD GAS HCO3 31 mmol/L (22-26); BLOOD GAS METHEMOGLOBIN 0.4 % (0-2); BLOOD GAS O2 HGB SATURATION 87 % (90-100); BLOOD GAS OXYGEN CONTENT 15.6 Vol % (12.0-20.0); BLOOD GAS PCO2 45 mmHg (38-42); BLOOD GAS PO2 53 mmHG (61-120); BLOOD GAS TOTAL HGB 12.8 G/DL (12.0-16.0); CRITICAL VALUE YES; DRAW SITE RT RADIAL; LITER FLOW 3 L/M; NUMBER OF ARTERIAL PUNCTURES 1; OXYGEN DEVICE NASAL CANNULA; STAT YES; TEMP CORR TO 98.6
[2017-03-13 13:51] LABS: AUTOMATED NEUTROPHIL # 11.8 TH/MM3 (1.8-7.7); BASOPHIL # 0.1 TH/MM3 (0-0.2); BASOPHIL % 0.6 % (0.0-2.0); HEMATOCRIT 39.5 % (39.0-51.0); HEMO FLAGS DIFF FINAL; LYMPH % 3.3 % (9.0-44.0); LYMPHOCYTE # 0.4 TH/MM3 (1.0-4.8); MEAN CELL VOLUME 87.3 FL (80.0-100.0); MEAN CORPUSCULAR HGB CONC 32.1 % (32.0-36.0); MONO % 3.9 % (0.0-8.0); NEUT % 92.2 % (16.0-70.0); PLATELET COUNT 257 TH/MM3 (150-450); RED BLOOD COUNT 4.53 MIL/MM3 (4.50-5.90); RED CELL DISTRIBUTION WIDTH 21.5 % (11.6-17.2); WHITE BLOOD COUNT 12.8 TH/MM3 (4.0-11.0)
[2017-03-13 14:01] LABS: BACTERIA, URINE OCC /hpf; BLOOD, URINE NEG (NEG); GLUCOSE,URINE 70 mg/dL (NEG); KETONE, URINE NEG (NEG); NITRITE,URINE NEG (NEG); SQUAMOUS EPITHELIAL CELL URINE 1 /hpf (0-5); URINE COLOR YELLOW (YELLW/STRAW)
[2017-03-13 14:03] LABS: COMMENT (UR) CULT NOT INDICATED; CULTURE IF INDICATED CULT NOT INDICATED
[2017-03-13 14:05] LABS: ANION GAP 6 MEQ/L (5-15); AST (GOT) 16 U/L (15-37); BICARBONATE 32.1 MEQ/L (21.0-32.0); BLOOD UREA NITROGEN 21 MG/DL (7-18); CHLORIDE 95 MEQ/L (98-107); GLOMERULAR FILTRATION RATE 120 ML/MIN (>89); POTASSIUM 4.5 MEQ/L (3.5-5.1); SODIUM (NA) 133 MEQ/L (136-145)
[2017-03-13 14:08] LABS: ALKALINE PHOSPHATASE 106 U/L (45-117); ALT (GPT) 28 U/L (12-78); TOTAL BILIRUBIN ADULT 0.6 MG/DL (0.2-1.0)
[2017-03-13] MEDS ORDERED: AZITHROMYCIN INJ 500 MG in SODIUM CHLOR 0.9% 250 ML INJ 250 ML IV STA (14:08)
[2017-03-13 14:14] LABS: CREATINE KINASE 30 U/L (39-308)
[2017-03-13] MEDS ORDERED: MORPHINE SULFATE 4 MG/ML INJ IV PUSH ONE (15:00)
[2017-03-13] MEDS ORDERED: IOHEXOL 350 MG/ML 10 ML VIAL (for RAD DIAG) IV ONE (15:14)
--- NOTE | 2017-03-13 15:28 | RADRPT ---
EXAM DATE/TIME: 03/13/2017 15:12 [facility] COMPARISON: CT PULMONARY ANGIOGRAM, December 13, 2016, 18:11. INDICATIONS : Shortness of breath with chest tightness for 1 day. IV CONTRAST: 74 cc Omnipaque 350 (iohexol) IV RADIATION DOSE: 23.45 CTDIvol (mGy) MEDICAL HISTORY : Cardiovascular disease. Chronic obstructive pulmonary disease. Hypertension.Diabetes. SURGICAL HISTORY : Cardiac cath. ENCOUNTER: Initial ACUITY: 1 day PAIN SCALE: 4/10 LOCATION: chest TECHNIQUE: Volumetric scanning of the chest was performed using a pulmonary embolism protocol MIP images were re constructed. Using automated exposure control and adjustment of the mA and/or kV according to patien t size, radiation dose was kept as low as reasonably achievable to obtain optimal diagnostic quality images. FINDINGS: Examination demonstrates bilateral pleural effusions and associated compressive atelectasis and consolidation in the right lower lobe. There is patchy airspace disease and interstitial prominence i n the left upper lobe again noted with a loculated effusion component along the oblique fissure. Ther e is consolidation within the lingula. No no previous study is collapse of the left lower lobe with a filling defect within the left mainstem and lower lobe bronchi. The appearance suggests extensive mu cous plugging and secretions. There is no adenopathy. There is no evidence for pulmonary embolism. Os seous structures demonstrate degenerative changes of the spine. Interval development of a T6 compress ion deformity with patchy sclerosis consistent with a subacute nature. CONCLUSION: Interval development of left lower lobe collapse secondary to endobronchial soft tissue density with intermixed air lucency having the appearance of mucous plugging and debris. Bilateral pleural effusio ns, consolidation and atelectasis. There is no evidence of pulmonary embolus. Earl Araujo MD on March 13, 2017 at 15:22 Board Certified Radiologist. This report was verified electronically.
--- NOTE | 2017-03-13 15:48 | PD ---
Physical Exam Narrative GENERAL: ill appearing, well-developed patient. SKIN: Warm and dry. HEAD: Normocephalic EYES: No injection or drainage. ENT: No nasal drainage noted. NECK: Supple, trachea midline. CARDIOVASCULAR: Regular rate and rhythm RESPIRATORY: coarse bilaterally. No accessory muscle use. EXTREMITIES: mild edema bilaterally. NEUROLOGICAL: Awake. Motor and sensory grossly within normal limits. Normal speech. Data Data Last Documented VS Vital Signs Date Time Temp Pulse Resp B/P Pulse Ox O2 Delivery O2 Flow Rate FiO2 03/13/17 14:42 94 Nasal Cannula 3 03/13/17 12:14 87 20 156/73 03/13/17 11:56 98.0 Orders Electrocardiogram (03/13/17 12:09) Complete Blood Count With Diff (03/13/17 12:09) Comprehensive Metabolic Panel (03/13/17 12:09) Lactic Acid Sepsis Protocol (03/13/17 12:09) Urinalysis - C+S If Indicated (03/13/17 12:09) Blood Culture (03/13/17 12:09) Chest, Single Ap (03/13/17 12:09) Arterial Blood Gas (Abg) (03/13/17 12:09) Iv Access Insert/Monitor (03/13/17 12:09) Oximetry (03/13/17 12:09) Oxygen Administration (03/13/17 12:09) Sodium Chloride 0.9% Flush (Ns Flush) (03/13/17 12:15) Cefepime Inj (Maxipime Inj) (03/13/17 12:15) Ondansetron Inj (Zofran Inj) (03/13/17 12:15) Albuterol-Ipratropium Neb (Duoneb Neb) (03/13/17 12:15) Ct Pulmonary Angiogram (03/13/17 ) Methylprednisolone So Succ Inj (Solumedr (03/13/17 12:15) B-Type Natriuretic Peptide (03/13/17 12:20) Ckmb (Isoenzyme) Profile (03/13/17 12:20) Troponin I (03/13/17 12:20) Azithromycin Inj (Zithromax Inj) (03/13/17 14:08) Morphine Inj (Morphine Inj) (03/13/17 15:00) Admit Order (Ed Use Only) (03/13/17 14:57) Labs Laboratory Tests Test 03/13/17 03/13/17 03/13/17 12:52 13:00 13:15 Blood Gas Puncture Site RT RADIAL Blood Gas Patient Temperature 98.6 Blood Gas HCO3 31 mmol/L Blood Gas Base Excess 6.6 mmol/L Blood Gas Oxygen Saturation 87 % Arterial Blood pH 7.45 Arterial Blood Partial 45 mmHg Pressure CO2 Arterial Blood Partial 53 mmHG Pressure O2 Arterial Blood Oxygen Content 15.6 Vol % Arterial Blood 2.5 % Carboxyhemoglobin Arterial Blood Methemoglobin 0.4 % Blood Gas Hemoglobin 12.8 G/DL Oxygen Delivery Device NASAL CANNULA Blood Gas Liter Flow 3 L/M White Blood Count 12.8 TH/MM3 Red Blood Count 4.53 MIL/MM3 Hemoglobin 12.7 GM/DL Hematocrit 39.5 % Mean Corpuscular Volume 87.3 FL Mean Corpuscular Hemoglobin 28.0 PG Mean Corpuscular Hemoglobin 32.1 % Concent Red Cell Distribution Width 21.5 % Platelet Count 257 TH/MM3 Mean Platelet Volume 7.7 FL Neutrophils (%) (Auto) 92.2 % Lymphocytes (%) (Auto) 3.3 % Monocytes (%) (Auto) 3.9 % Eosinophils (%) (Auto) 0.0 % Basophils (%) (Auto) 0.6 % Neutrophils # (Auto) 11.8 TH/MM3 Lymphocytes # (Auto) 0.4 TH/MM3 Monocytes # (Auto) 0.5 TH/MM3 Eosinophils # (Auto) 0.0 TH/MM3 Basophils # (Auto) 0.1 TH/MM3 CBC Comment DIFF FINAL Differential Comment Urine Color YELLOW Urine Turbidity HAZY Urine pH 7.0 Urine Specific [place] 1.017 Urine Protein 30 mg/dL Urine Glucose (UA) 70 mg/dL Urine Ketones NEG mg/dL Urine Occult Blood NEG Urine Nitrite NEG Urine Bilirubin NEG Urine Urobilinogen LESS THAN 2.0 MG/DL Urine Leukocyte Esterase NEG Urine RBC 5 /hpf Urine WBC 4 /hpf Urine Squamous Epithelial 1 /hpf Cells Urine Amorphous Sediment OCC Urine Bacteria OCC /hpf Microscopic Urinalysis Comment CULT NOT INDICATED Sodium Level 133 MEQ/L Potassium Level 4.5 MEQ/L Chloride Level 95 MEQ/L Carbon Dioxide Level 32.1 MEQ/L Anion Gap 6 MEQ/L Blood Urea Nitrogen 21 MG/DL Creatinine 0.65 MG/DL Estimat Glomerular Filtration 120 ML/MIN Rate Random Glucose 291 MG/DL Lactic Acid Level 0.9 mmol/L Calcium Level 8.5 MG/DL Total Bilirubin 0.6 MG/DL Aspartate Amino Transf 16 U/L (AST/SGOT) Alanine Aminotransferase 28 U/L (ALT/SGPT) Alkaline Phosphatase 106 U/L B-Type Natriuretic Peptide 24 PG/ML Total Protein 6.0 GM/DL Albumin 2.3 GM/DL Total Creatine Kinase 30 U/L Troponin I LESS THAN 0.02 NG/ML [facility] Supervised Visit with PRINCESS: Yes Interpretation(s) CBC & BMP Diagram 03/13/17 13:00 Last 24 hours Impressions Chest X-Ray 03/13/17 1209 Signed Impressions: Service Date/Time: Monday, March 13, 2017 12:27 - CONCLUSION: Mild volume loss left hemithorax with left lower lobe collapse suspected with dense consolidative opacity seen and left mainstem bronchus air column cutoff noted. Earl Araujo MD CT Angiography 03/13/17 0000 Signed Impressions: Service Date/Time: Monday, March 13, 2017 15:12 - CONCLUSION: Interval development of left lower lobe collapse secondary to endobronchial soft tissue density with intermixed air lucency having the appearance of mucous plugging and debris. Bilateral pleural effusions, consolidation and atelectasis. There is no evidence of pulmonary embolus. Earl Araujo MD Narrative Course I, Dr. elaine, have reviewed the advance practice practitioner's documentation and am in agreement, met with the patient face to face, made the diagnosis, and the medical decision making was done by me. *My assessment and Findings: 76-year-old male presents with general ill feeling and shortness of breath. Recent discharge from the hospital with pneumonia. Workup findings recurrence of pneumonia with concern for mucous plug. CT without PE. Discussed with pulmonary for bronchoscopy and he will be admitted for further care. updated Physician Communication Physician Communication dr hicks agrees patient needs bronchoscopy and will see patient Diagnosis Primary Impression: PNA (pneumonia) Qualified Code: J18.1 - Pneumonia of left lower lobe due to infectious organism Additional Impression: Mucus plugging of bronchi Admitting Information Admitting Physician Requests: Admit Condition: Stable Gita Elaine MD Mar 13, 2017 15:48
[2017-03-13] MEDS ORDERED: NALOXONE HCL 0.4 MG/ML AMP IV PRN (17:00)
--- NOTE | 2017-03-13 17:17 | HHI.HP ---
HPI Service [facility] Primary Care Physician [facility] Admission Diagnosis pneumonia Diagnoses: Chief Complaint: short of breath Travel History International Travel<30 Days: No Contact w/Intl Traveler <30 Da: No Traveled to Known Affected Are: No Sepsis Criteria SIRS Criteria (2 or more): Heart rate over 90, WBC > 18748, < 4000 or > 10% bands Sepsis Criteria (SIRS+source): Infect source susp/known History of Present Illness This is a 76-year-old male with a PMH of HTN, A. 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 Patient was discharged 4 days ago from the hospital to a SNF. On Thursday he began to have nausea and vomited twice when he was getting his tube feeding. Per the she was not told of any residuals from his peg tube, and the abdominal xray at the SNF did not show an ileus. Patient states today he began to cough and have shortness of breath but no sputum production. On arrival patient had a temp of 99.8, HR 94, and WBC 12.8. Patient denies any chest pain or chills. He states he just wants water and feels dry. He does feel nauseated and Zofran does not seem to help. He was constipated on Thursday but was given a suppository and was able to have 2 small BMs. Review of Systems Constitutional: DENIES: Fever, Chills Respiratory: COMPLAINS OF: Cough, Shortness of breath, DENIES: Sputum production Cardiovascular: DENIES: Chest pain, Lower Extremity Edema Gastrointestinal: COMPLAINS OF: Nausea, Vomiting, DENIES: Constipation, Diarrhea Genitourinary: DENIES: Hematuria, Dysuria Musculoskeletal: DENIES: Back pain, Neck pain Hematologic/lymphatic: DENIES: Lymphadenopathy Immunologic/allergic: DENIES: Urticaria Neurologic: DENIES: Headache Past Family Social History Past Medical History HTN A. 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 Give 30 min prior. Levaquin (Levofloxacin) 750 Mg Tab 750 Mg PO DAILY Klonopin (Clonazepam) 0.5 Mg Tab 0.5 Mg PO Q12HR Morphine IR (Morphine Sulfate) 15 Mg Tab 15 Mg PO Q4H PRN Duragesic Patch 72 HR (Fentanyl) 50 Mcg/Hr Patch 1 Patch TD Q72H Marinol (Dronabinol) 5 Mg Cap 5 Mg PO BID Effexor XR 24 HR (Venlafaxine HCl) 75 Mg Cap 225 Mg PO DAILY Amiodarone (Amiodarone HCl) 200 Mg Tab 200 Mg PO DAILY Duoneb (Ipratropium-Albuterol Neb) 0.5-2.5 Mg/3 Ml Neb 1 Ampule INH QID NEB Cardizem CD 24 HR (Diltiazem CD 24 HR) 240 Mg Caper 240 Mg PO BID Zantac (Ranitidine HCl) 150 Mg Tab 150 Mg PO BID Protonix (Pantoprazole Sodium) 40 Mg Tab 40 Mg PO DAILY Atorvastatin (Atorvastatin Calcium) 40 Mg Tab 40 Mg PO HS Spiriva Handihaler (Tiotropium Inh) 18 Mcg Cap 18 Mcg INH DAILY 1 capsule = 18 mcg Xarelto (Rivaroxaban) 20 Mg Tab 20 Mg PO DAILY Reported Florastor (Saccharomyces Boulardii) 250 Mg Cap 250 Mg PO BID 10 Days Novolog Inj (Insulin Aspart) 1,000 Unit/10 Ml Vial 0 SQ ACHS Sliding Scale: 150-199=1 UNIT, 200-249=3 UNITS, 250-299=5 UNITS, 300-347=7 UNITS, >349=9 UNITS Levothyroxine (Levothyroxine Sodium) 25 Mcg Tab 225 Mcg PO DAILY Take 1 tablet (25mcg) with 200mcg tablet for a total dose of 225mcg Zofran (Ondansetron HCl) 8 Mg Tab 8 Mg PO Q8HR PRN Vitamin D3 (Cholecalciferol) 1,000 Unit Tab 2,000 Units PO DAILY Oyster Shell 500 Mg Tab 500 Mg PO DAILY Senna (Sennosides) 8.8 Mg/5 Ml Syp 15 Mg PO BID Multivitamin Adults (Multiple Vitamins W/ Minerals) 1 Tab 1 Tab PO DAILY Docusate Sodium 100 Mg Cap 100 Mg PO BID Proair Respiclick Inh (Albuterol Sulfate) 90 Mcg/Act Aerp 2 Puff INH Q4HR PRN Allergies: Coded Allergies: Flagyl (Verified Allergy, Severe, 03/13/17) Floxcin (Verified Allergy, Severe, 03/13/17) Latex (Verified Allergy, Severe, 03/13/17) Adhesives (Verified Allergy, Mild, 03/13/17) *MDRO Multi-Drug Resistant Organism (Verified Adverse Reaction, Unknown, ) 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/17 Active Ordered Medications Current Medications Medications (Trade) Dose Ordered Sig/Melissa Route Start Time Stop Time Status Last Admin (NS Flush) 2 ml UNSCH PRN IVF 03/13/17 12:15 (Zofran Inj) 4 mg Q6H PRN IV 03/13/17 12:15 03/13/17 18:16 03/13/17 13:58 Family History Patient denies any cardiac or DM family history Social History Tobacco use: quit 2015 Alcohol use: denies Physical Exam Vital Signs Vital Signs Date Time Temp Pulse Resp B/P Pulse Ox O2 Delivery O2 Flow Rate FiO2 03/13/17 15:39 99.8 94 16 153/72 94 Nasal Cannula 03/13/17 15:06 88 18 163/79 94 03/13/17 14:42 94 Nasal Cannula 3 03/13/17 14:42 94 03/13/17 12:14 93 Nasal Cannula 3 03/13/17 12:14 87 20 156/73 93 Nasal Cannula 03/13/17 11:56 98.0 86 20 156/73 Physical Exam GENERAL: This is a well-nourished, well-developed patient, who is short of breath. SKIN: No rashes, ecchymoses or lesions. Cool and dry. HEAD: Atraumatic. Normocephalic. EYES: Pupils equal round and reactive. Extraocular motions intact. No scleral icterus. No injection or drainage. ENT: Nose without bleeding, purulent drainage or septal hematoma. Uvula midline. Airway patent. NECK: Trachea midline. No JVD or lymphadenopathy. CARDIOVASCULAR: Regular rate and rhythm without murmurs, gallops, or rubs. RESPIRATORY: Left lower lobe minimal air flow. Wheezes throughout. GASTROINTESTINAL: Abdomen soft, tender, nondistended. No guarding. MUSCULOSKELETAL: Extremities without clubbing, cyanosis, or edema. No joint tenderness, effusion, or edema noted. No calf tenderness. NEUROLOGICAL: Awake and alert. Motor and sensory grossly within normal limits. Five out of 5 muscle strength in all muscle groups. Normal speech. Laboratory Laboratory Tests Test 03/13/17 03/13/17 03/13/17 12:52 13:00 13:15 Blood Gas Puncture Site RT RADIAL Blood Gas Patient Temperature 98.6 Blood Gas HCO3 31 Blood Gas Base Excess 6.6 Blood Gas Oxygen Saturation 87 Arterial Blood pH 7.45 Arterial Blood Partial 45 Pressure CO2 Arterial Blood Partial 53 Pressure O2 Arterial Blood Oxygen Content 15.6 Arterial Blood 2.5 Carboxyhemoglobin Arterial Blood Methemoglobin 0.4 Blood Gas Hemoglobin 12.8 Oxygen Delivery Device NASAL CANNULA Blood Gas Liter Flow 3 White Blood Count 12.8 Red Blood Count 4.53 Hemoglobin 12.7 Hematocrit 39.5 Mean Corpuscular Volume 87.3 Mean Corpuscular Hemoglobin 28.0 Mean Corpuscular Hemoglobin 32.1 Concent Red Cell Distribution Width 21.5 Platelet Count 257 Mean Platelet Volume 7.7 Neutrophils (%) (Auto) 92.2 Lymphocytes (%) (Auto) 3.3 Monocytes (%) (Auto) 3.9 Eosinophils (%) (Auto) 0.0 Basophils (%) (Auto) 0.6 Neutrophils # (Auto) 11.8 Lymphocytes # (Auto) 0.4 Monocytes # (Auto) 0.5 Eosinophils # (Auto) 0.0 Basophils # (Auto) 0.1 CBC Comment DIFF FINAL Differential Comment Urine Color YELLOW Urine Turbidity HAZY Urine pH 7.0 Urine Specific [place] 1.017 Urine Protein 30 Urine Glucose (UA) 70 Urine Ketones NEG Urine Occult Blood NEG Urine Nitrite NEG Urine Bilirubin NEG Urine Urobilinogen LESS THAN 2.0 Urine Leukocyte Esterase NEG Urine RBC 5 Urine WBC 4 Urine Squamous Epithelial 1 Cells Urine Amorphous Sediment OCC Urine Bacteria OCC Microscopic Urinalysis Comment CULT NOT INDICATED Sodium Level 133 Potassium Level 4.5 Chloride Level 95 Carbon Dioxide Level 32.1 Anion Gap 6 Blood Urea Nitrogen 21 Creatinine 0.65 Estimat Glomerular Filtration 120 Rate Random Glucose 291 Lactic Acid Level 0.9 Calcium Level 8.5 Total Bilirubin 0.6 Aspartate Amino Transf 16 (AST/SGOT) Alanine Aminotransferase 28 (ALT/SGPT) Alkaline Phosphatase 106 B-Type Natriuretic Peptide 24 Total Protein 6.0 Albumin 2.3 Total Creatine Kinase 30 Troponin I LESS THAN 0.02 Date/Time Procedure Status Source Growth 03/13/17 13:30 Aerobic Blood Culture Received Blood Peripheral Pending 03/13/17 13:30 Anaerobic Blood Culture Received Blood Peripheral Pending Result Diagram: 03/13/17 1300 03/13/17 1300 Imaging Last Impressions Chest X-Ray 03/13/17 1209 Signed Impressions: Service Date/Time: Monday, March 13, 2017 12:27 - CONCLUSION: Mild volume loss left hemithorax with left lower lobe collapse suspected with dense consolidative opacity seen and left mainstem bronchus air column cutoff noted. Earl Araujo MD CT Angiography 03/13/17 0000 Signed Impressions: Service Date/Time: Monday, March 13, 2017 15:12 - CONCLUSION: Interval development of left lower lobe collapse secondary to endobronchial soft tissue density with intermixed air lucency having the appearance of mucous plugging and debris. Bilateral pleural effusions, consolidation and atelectasis. There is no evidence of pulmonary embolus. 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 Sepsis per criteria, WBC 12.8, HR 94, suspected pneumonia -Azithromycin and cefepime given in ED, changed to Zosyn Q6hr -CBC in AM -Sputum culture ordered, blood cultures pending Mucus plus in bronchi Images: chest xray shows Mild volume loss left hemithorax with left lower lobe collapse suspected with dense consolidative opacity seen and left mainstem bronchus air column cutoff noted. CTA shows Interval development of left lower lobe collapse secondary to endobronchial soft tissue density with intermixed air lucency having the appearance of mucous plugging and debris. Bilateral pleural effusions, consolidation and atelectasis. There is no evidence of pulmonary embolus. -Consult pulmonology, Dr. Aguayo is planning do a bronchoscopy the patient -Transfer to ICU for closer monitoring Pneumonia, likely aspirated pneumonia due to multiple vomiting episodes -Cont antibiotics as above -Chest xray in am -Oxygen as needed, currently on 3L Nausea and vomiting -place peg tube to gravity drain bag -Zofran and Reglan PRN -NPO for now DM, chronic -Accu checks AC/HS with SSI -Hold home insulin when med rec is updated Afib, chronic -Monitor tele- in SR. On Xarelto -Continue home cardizem, and amiodarone DVT prophylaxus: SCDs, On Xarelto- hold for possible procedure GI prophylaxis: Protonix The exam, history, and the medical decision-making described in the above note were completed with the assistance of the mid-level provider. I reviewed and agree with the findings presented. I attest that I had a [id number] encounter with the patient on the same day, and personally performed and documented my assessment and findings in the medical record. Code Status Full Discussed Condition With Patient, patient't , RN and Dr. Jenkins Physician Certification 2 Midnight Certification Type: Admission for Inpatient Services Order for Inpatient Services The services are ordered in accordance with Medicare regulations or non- Medicare payer requirements, as applicable. In the case of services not specified as inpatient-only, they are appropriately provided as inpatient services in accordance with the 2-midnight benchmark. Estimated LOS (days): 3 days is the estimated time the patient will need to remain in the hospital, assuming treatment plan goals are met and no additional complications. Post-Hospital Plan: SNF Problem Qualifiers (1) DM (diabetes mellitus): Afsaneh Head Mar 13, 2017 17:16 Amy Jenkins MD Mar 13, 2017 20:22
[2017-03-13] MEDS ORDERED: GLUCAGON 1 MG/ML VIAL OTHER PRN (17:45)
[2017-03-13] MEDS ORDERED: DEXTROSE 50% IN WATER 50 ML VIAL(D50) IV PUSH PRN (17:45)
[2017-03-13] MEDS: PIPERACIL-TAZO 4.5 GM PREMIX 100 ML IV SCH ×3 (18:19→19:54)
[2017-03-13] MEDS ORDERED: MORPHINE SULFATE 4 MG/ML INJ IV PUSH PRN (19:15)
[2017-03-13] MEDS: INSULIN ASPART SUPPLEMENTAL SCALE SQ SCH ×2 (19:55→23:49)
[2017-03-13] MEDS ORDERED: INSULIN ASPART SUPPLEMENTAL SCALE SQ SCH (21:00)
[2017-03-13] MEDS: PANTOPRAZOLE SODIUM 40 MG VIAL IV PUSH SCH (21:08)
[2017-03-13] MEDS ORDERED: DILT-64 PO (21:27)
[2017-03-13] MEDS: DILTIAZEM-CD 240 MG CAP ER PO SCH (21:32)
[2017-03-13] MEDS: ATORVASTATIN 40 MG TAB PO SCH (21:33)
[2017-03-14] VITALS (13 sets, daily range): BP systolic 128–165; BP diastolic 62–75; PULSE 71–84; RESP 13–21; TEMP 97.8–98.8; O2SAT 90–98
[2017-03-14] MEDS ORDERED: CHLORHEXIDINE GLUCONATE 2 % 1 PACK (2 CLOTHS)(extra cloths) TOPICAL PRN (01:45)
[2017-03-14] MEDS: CHLORHEXIDINE GLUCONATE 2 % 1 PACK (2 CLOTHS)(taper/protocol) TOPICAL SCH (02:00)
[2017-03-14] MEDS: MORPHINE SULFATE 4 MG/ML INJ IV PUSH PRN ×2 (06:06→09:56)
--- NOTE | 2017-03-14 06:23 | RADRPT ---
EXAM DATE/TIME: 03/14/2017 03:59 [facility] COMPARISON: CHEST SINGLE AP, March 13, 2017, 12:27. INDICATIONS : Shortness of breath, possible pulmonary disease. MEDICAL HISTORY : Chronic obstructive pulmonary disease. Congestive heart failure. Carcinoma, esophageal. A-Fib UTI SURGICAL HISTORY : Ablation ENCOUNTER: Subsequent ACUITY: 2 days PAIN SCORE: 0/10 LOCATION: Bilateral chest FINDINGS: The cardiac silhouette is normal in transverse diameter. There is left lower lobe atelectasis versus pneumonia. The findings are improved when compared with the prior exam. CONCLUSION: 1. Left lower lobe atelectasis versus pneumonia. The findings are improved when compared with the agata or exam. There is better aeration of the left lung when compared to the prior study Phillip Wheat MD on March 14, 2017 at 6:21 Board Certified Radiologist. This report was verified electronically.
[2017-03-14] MEDS: INSULIN ASPART SUPPLEMENTAL SCALE SQ SCH ×4 (06:36→20:23)
[2017-03-14] MEDS: AMIODARONE 200 MG TAB PO SCH (08:40)
[2017-03-14] MEDS: DILTIAZEM-CD 240 MG CAP ER PO SCH ×2 (08:40→20:38)
[2017-03-14 10:32] LABS: AUTOMATED NEUTROPHIL # 12.1 TH/MM3 (1.8-7.7); BASOPHIL # 0.1 TH/MM3 (0-0.2); BASOPHIL % 0.6 % (0.0-2.0); HEMATOCRIT 37.3 % (39.0-51.0); HEMO FLAGS DIFF FINAL; LYMPH % 4.8 % (9.0-44.0); LYMPHOCYTE # 0.6 TH/MM3 (1.0-4.8); MEAN CELL VOLUME 85.3 FL (80.0-100.0); MEAN CORPUSCULAR HEMOGLOBIN 28.4 PG (27.0-34.0); MEAN CORPUSCULAR HGB CONC 33.3 % (32.0-36.0); MONO % 4.9 % (0.0-8.0); NEUT % 89.7 % (16.0-70.0); PLATELET COUNT 194 TH/MM3 (150-450); RED BLOOD COUNT 4.37 MIL/MM3 (4.50-5.90); RED CELL DISTRIBUTION WIDTH 21.2 % (11.6-17.2); WHITE BLOOD COUNT 13.5 TH/MM3 (4.0-11.0)
[2017-03-14 10:33] LABS: ALT (GPT) 29 U/L (12-78); ANION GAP 9 MEQ/L (5-15); AST (GOT) 25 U/L (15-37); BICARBONATE 29.2 MEQ/L (21.0-32.0); BLOOD UREA NITROGEN 26 MG/DL (7-18); CHLORIDE 99 MEQ/L (98-107); GLOMERULAR FILTRATION RATE 134 ML/MIN (>89); SODIUM (NA) 137 MEQ/L (136-145)
[2017-03-14 10:36] LABS: ALKALINE PHOSPHATASE 100 U/L (45-117); TOTAL BILIRUBIN ADULT 0.5 MG/DL (0.2-1.0)
[2017-03-14 10:43] LABS: POTASSIUM 4.9 MEQ/L (3.5-5.1)
[2017-03-14] MEDS: PIPERACIL-TAZO 4.5 GM PREMIX 100 ML IV SCH ×3 (12:26→23:51)
[2017-03-14 12:29] LABS: BLOOD GAS BASE EXCESS 5.2 mmol/L (-2-2); BLOOD GAS CARBOXYHEMOGLOBIN 2.2 % (0-4); BLOOD GAS HCO3 29 mmol/L (22-26); BLOOD GAS METHEMOGLOBIN 1.1 % (0-2); BLOOD GAS O2 HGB SATURATION 89 % (90-100); BLOOD GAS OXYGEN CONTENT 15.4 Vol % (12.0-20.0); BLOOD GAS PCO2 38 mmHg (38-42); BLOOD GAS PO2 63 mmHg (61-120); BLOOD GAS TOTAL HGB 12.3 G/DL (12.0-16.0); TEMP CORR TO 98.6
[2017-03-14 12:30] LABS: CRITICAL VALUE YES
[2017-03-14 12:31] LABS: DRAW SITE RT RADIAL; LITER FLOW 3 L/M; NUMBER OF ARTERIAL PUNCTURES 1; OXYGEN DEVICE NASAL CANNULA; STAT NO; ULNAR PULSE PRESENT
--- NOTE | 2017-03-14 12:43 | HHI.PR ---
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 patient very depressed about the whole situtation, pain "not getting better, I want to " Objective Vitals Vital Signs Date Time Temp Pulse Resp B/P Pulse Ox O2 Delivery O2 Flow Rate FiO2 03/14/17 10:01 23 03/14/17 10:00 81 03/14/17 08:46 95 Nasal Cannula 3.00 03/14/17 08:00 78 03/14/17 08:00 98.6 78 18 131/63 94 03/14/17 04:00 98.0 78 20 165/75 90 03/14/17 02:06 80 03/14/17 01:26 97.8 84 20 146/75 94 03/13/17 23:54 84 16 157/74 98 Nasal Cannula 3 03/13/17 21:42 88 16 146/73 94 03/13/17 19:55 98.6 92 18 166/94 94 Nasal Cannula 03/13/17 18:35 91 Nasal Cannula 3.00 03/13/17 18:32 90 18 157/57 95 Nasal Cannula 3 03/13/17 15:39 99.8 94 16 153/72 94 Nasal Cannula 03/13/17 15:06 88 18 163/79 94 03/13/17 14:42 94 Nasal Cannula 3 03/13/17 14:42 94 I/O 03/13/17 03/13/17 03/13/17 03/14/17 03/14/17 03/14/17 07:00 15:00 23:00 07:00 15:00 23:00 Intake Total 100 ml Output Total 300 ml Balance -200 ml IV Total 100 ml Output Urine Total 300 ml # Bowel Movements 0 Result Diagram: 03/14/17 1004 03/14/17 1004 Imaging Last Impressions Chest X-Ray 03/14/17 0600 Signed Impressions: Service Date/Time: Tuesday, March 14, 2017 03:59 - CONCLUSION: 1. Left lower lobe atelectasis versus pneumonia. The findings are improved when compared with the prior exam. There is better aeration of the left lung when compared to the prior study Phillip Wheat MD CT Angiography 03/13/17 0000 Signed Impressions: Service Date/Time: Monday, March 13, 2017 15:12 - CONCLUSION: Interval development of left lower lobe collapse secondary to endobronchial soft tissue density with intermixed air lucency having the appearance of mucous plugging and debris. Bilateral pleural effusions, consolidation and atelectasis. There is no evidence of pulmonary embolus. 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 Sepsis per criteria, WBC 12.8, HR 94, suspected pneumonia -Azithromycin and cefepime given in ED, changed to Zosyn Q6hr -CBC in AM -Sputum culture blood cultures pending Mucus plug in bronchi Images: chest xray shows Mild volume loss left hemithorax with left lower lobe collapse suspected with dense consolidative opacity seen and left mainstem bronchus air column cutoff noted. CTA shows Interval development of left lower lobe collapse secondary to endobronchial soft tissue density with intermixed air lucency having the appearance of mucous plugging and debris. Bilateral pleural effusions, consolidation and atelectasis. There is no evidence of pulmonary embolus. -Consult pulmonology, Dr. Aguayo is planning do a bronchoscopy the patient - Monitor 02 sats -ABG compensated respiratory acidosis Pneumonia, likely aspirated pneumonia due to multiple vomiting episodes -Cont antibiotics as above -Chest xray - no acute change- films reviewed -Oxygen as needed, currently on 3L Nausea and vomiting History of Gastroparesis -place peg tube to gravity drain bag -Zofran and Reglan PRN -NPO for now DM, chronic -Accu checks AC/HS with SSI -Hold home insulin when med rec is updated Afib, chronic- in SR -Monitor tele- in SR. On Xarelto- hold for possible procedure -Continue home cardizem, and amiodarone Severe back pain-on top of chronic on Morphine change to IV Dilaudid and monitor of respiratory status restart Fentanyl patch Depression/anxiety continue Meds. Ativan IV prn get psychiatry consult- for recommendations DVT prophylaxus: SCDs, On Xarelto- hold for possible procedure GI prophylaxis: Protonix d/w Problem Qualifiers (1) DM (diabetes mellitus): Amy Jenkins MD Mar 14, 2017 12:43 (1) DM (diabetes mellitus): Amy Jenkins MD Mar 14, 2017 12:43
[2017-03-14] MEDS: VENLAFAXINE HCL XR 75 MG CAP PO SCH (13:15)
[2017-03-14] MEDS: fentaNYL 50 MCG/HR PATCH TOPICAL SCH (13:19)
[2017-03-14] MEDS ORDERED: HYDROmorphone HCL PF 2 MG/ML VIAL IV PUSH ONE (13:30)
--- NOTE | 2017-03-14 14:22 | EKG ---
Date Performed: 03/13/2017 Time Performed: 12:27:19 PTAGE: 76 years EKG: Sinus rhythm MARKED LEFT AXIS DEVIATION LOW QRS VOLTAGE IN EXTREMITY LEADS Compared to previous tracing, axis is somewhat more leftward. ABNORMAL ECG PREVIOUS TRACING : 02/27/2017 22.10.44 DOCTOR: Paul Smith Interpretating Date/Time 03/14/2017 14:21:36
[2017-03-14] MEDS: ENOXAPARIN SODIUM 30 MG/0.3 ML SYRINGE SQ SCH (14:31)
[2017-03-14] MEDS: methylPREDNISolone SOD SUCC 40 MG/1 ML VIAL IV PUSH SCH ×2 (14:31→21:26)
[2017-03-14] MEDS: HYDROmorphone HCL PF 1 MG/ML VIAL IV PUSH PRN (17:02)
--- NOTE | 2017-03-14 18:07 | RADRPT ---
EXAM DATE/TIME: 03/14/2017 16:31 [facility] COMPARISON: No previous studies available for comparison. INDICATIONS : Increased back pain. RADIATION DOSE: 33.70 CTDIvol (mGy) ; Combined studies - Thoracic Spine/Lumbar Spine MEDICAL HISTORY : Carcinoma, lung. SURGICAL HISTORY : None. ENCOUNTER: Initial ACUITY: 1 day PAIN SCALE: 5/10 LOCATION: Bilateral spine TECHNIQUE: Volumetric scanning of the lumbar spine was performed. Multiplanar reconstructions in the sagittal, coronal and oblique axial planes were performed. Using automated exposure control and adjustment of the mA and/or kV according to patient size, radiation dose was kept as low as reasonably achievable t o obtain optimal diagnostic quality images. FINDINGS: There is a mild compression deformity of L1 which appears remote. L2, L3, L4 and L5 are intact. Minim al disc bulge is present at L1-2-3. At L4-5 there is a broad-based posterior disc bulge at with mild encroachment the lateral recesses. At L5-S1 there is a mild broad-based disc protrusion, slightly worse on the left side. Bones are oste openic. CONCLUSION: 1. Mild compression deformity of L1 which appears chronic. Osteopenia. No acute fracture seen. 2. Mild posterior disc protrusion at L5-S1, slightly worse on the left side with encroachment on the left lateral recess. Giorgio Maldonado MD on March 14, 2017 at 18:02 Board Certified Radiologist. This report was verified electronically.
--- NOTE | 2017-03-14 18:15 | RADRPT ---
EXAM DATE/TIME: 03/14/2017 16:31 [facility] COMPARISON: No previous studies available for comparison. INDICATIONS : Increased back pain. RADIATION DOSE: 33.70 CTDIvol (mGy) ; Combined studies - Thoracic Spine/Lumbar Spine MEDICAL HISTORY : Carcinoma, lung. SURGICAL HISTORY : None. ENCOUNTER: Initial ACUITY: 1 day PAIN SCALE: 5/10 LOCATION: Bilateral lumbar TECHNIQUE: Volumetric scanning of the thoracic spine was performed. Multiplanar reconstructions in the sagittal , coronal and oblique axial planes were performed. Using automated exposure control and adjustment o f the mA and/or kV according to patient size, radiation dose was kept as low as reasonably achievable to obtain optimal diagnostic quality images. FINDINGS: There is a moderate compression deformity of T5 without significant retropulsion. No significant stephanie l stenosis within the thoracic spine. This was present on CT from February 04. Bones are osteopenic. Mild compression deformity of L1 appears remote. Osteopenia. CONCLUSION: 1. There is a moderate compression deformity of T5 not significantly changed from CT in January. Osteop enia. Bilateral pleural effusions. Giorgio Maldonado MD on March 14, 2017 at 18:06 Board Certified Radiologist. This report was verified electronically.
[2017-03-14] MEDS: PANTOPRAZOLE SODIUM 40 MG VIAL IV PUSH SCH (20:22)
[2017-03-14] MEDS: ATORVASTATIN 40 MG TAB PO SCH (20:23)
[2017-03-14] MEDS: traZODone HCL 100 MG TAB PO SCH (21:26)
[2017-03-14] MEDS: LORazepam 2 MG/ML VIAL IV PRN (22:17)
[2017-03-15] VITALS (13 sets, daily range): BP systolic 107–129; BP diastolic 55–60; PULSE 70–79; RESP 13–24; TEMP 97.3–98.4; O2SAT 91–95
[2017-03-15] MEDS: HYDROmorphone HCL PF 1 MG/ML VIAL IV PUSH PRN ×4 (01:16→15:45)
[2017-03-15] MEDS: CHLORHEXIDINE GLUCONATE 2 % 1 PACK (2 CLOTHS)(taper/protocol) TOPICAL SCH (04:00)
[2017-03-15] MEDS: methylPREDNISolone SOD SUCC 40 MG/1 ML VIAL IV PUSH SCH ×2 (05:39→13:38)
[2017-03-15] MEDS: PIPERACIL-TAZO 4.5 GM PREMIX 100 ML IV SCH ×3 (05:40→17:50)
[2017-03-15] MEDS: INSULIN ASPART SUPPLEMENTAL SCALE SQ SCH ×4 (06:55→19:45)
[2017-03-15] MEDS: AMIODARONE 200 MG TAB PO SCH (08:10)
[2017-03-15] MEDS: VENLAFAXINE HCL XR 75 MG CAP PO SCH (08:11)
[2017-03-15] MEDS: DILTIAZEM-CD 240 MG CAP ER PO SCH ×2 (08:12→19:45)
--- NOTE | 2017-03-15 13:21 | HHI.PR ---
Subjective Remarks NO SOB AT REST LETHARGIC GBUT AROUSIBLE Objective Vital Signs Date Time Temp Pulse Resp B/P Pulse Ox O2 Delivery O2 Flow Rate FiO2 03/15/17 12:00 78 03/15/17 12:00 97.9 78 24 113/58 91 03/15/17 11:40 14 03/15/17 10:00 74 03/15/17 08:00 77 03/15/17 08:00 97.3 77 13 113/58 94 03/15/17 06:00 75 03/15/17 04:00 98.4 75 22 111/55 95 03/15/17 04:00 75 03/15/17 02:00 70 03/15/17 00:00 75 03/15/17 00:00 98.4 75 20 107/59 93 03/14/17 22:27 98 Nasal Cannula 4.00 03/14/17 22:00 71 03/14/17 20:00 72 03/14/17 20:00 98.2 72 20 128/71 95 03/14/17 18:00 73 03/14/17 16:00 74 03/14/17 16:00 98.7 73 13 140/62 95 03/14/17 15:02 16 03/14/17 14:00 82 I/O 03/14/17 03/14/17 03/14/17 03/15/17 03/15/17 03/15/17 07:00 15:00 23:00 07:00 15:00 23:00 Intake Total 100 ml 200 ml 300 ml 290 ml Output Total 300 ml 600 ml Balance -200 ml -400 ml 300 ml 290 ml IV Total 100 ml 200 ml 90 ml Other 300 ml 200 ml Output Urine Total 300 ml 600 ml # Voids 1 # Bowel Movements 0 0 Result Diagram: 03/14/17 1004 03/14/17 1004 Objective Remarks GENERAL: SKIN: Warm and dry. HEAD: Atraumatic. Normocephalic. EYES: Pupils equal and round. No scleral icterus. No injection or drainage. ENT: No nasal bleeding or discharge. Mucous membranes pink and moist. NECK: Trachea midline. No JVD. CARDIOVASCULAR: Regular rate and rhythm. RESPIRATORY: No accessory muscle use. Clear to auscultation. Breath sounds equal bilaterally. GASTROINTESTINAL: Abdomen soft, non-tender, nondistended. Hepatic and splenic margins not palpable. MUSCULOSKELETAL: Extremities without clubbing, cyanosis, or edema. No obvious deformities. NEUROLOGICAL: Awake and alert. No obvious cranial nerve deficits. Motor grossly within normal limits. Five out of 5 muscle strength in the arms and legs. Normal speech. PSYCHIATRIC: Appropriate mood and affect; insight and judgment normal. Assessment and Plan Assessment and Plan RESPIRATORY FAILURE COPD LARYNGEAL CA ATLECTASIS VS PNA PLAN O2 ANTIBIOTICS PULM TOILET BRONCHOSCOPY IF NEEDED Dede Aguayo MD Mar 15, 2017 13:21
[2017-03-15] MEDS: ENOXAPARIN SODIUM 30 MG/0.3 ML SYRINGE SQ SCH (13:38)
[2017-03-15] MEDS: RESP: ALBUTEROL 2.5 MG/IPRATROPIUM 0.5 MG NEB (SCH) NEB ×2 (15:20→20:19)
--- NOTE | 2017-03-15 16:49 | HHI.PR ---
Subjective Remarks awake and alert patient " hungry " staff nurse did a bedside swallowing evaluation - coughed after d/w with him- that we start tube feedings and get a formal swallowing speech therapy evaluation to be safe Objective Vitals Vital Signs Date Time Temp Pulse Resp B/P Pulse Ox O2 Delivery O2 Flow Rate FiO2 03/15/17 16:15 12 03/15/17 16:00 76 03/15/17 16:00 98.3 76 14 127/60 93 03/15/17 14:00 75 03/15/17 12:00 78 03/15/17 12:00 97.9 78 24 113/58 91 03/15/17 10:00 74 03/15/17 08:00 77 03/15/17 08:00 97.3 77 13 113/58 94 03/15/17 06:00 75 03/15/17 04:00 98.4 75 22 111/55 95 03/15/17 04:00 75 03/15/17 02:00 70 03/15/17 00:00 75 03/15/17 00:00 98.4 75 20 107/59 93 03/14/17 22:27 98 Nasal Cannula 4.00 03/14/17 22:00 71 03/14/17 20:00 72 03/14/17 20:00 98.2 72 20 128/71 95 03/14/17 18:00 73 I/O 03/14/17 03/14/17 03/14/17 03/15/17 03/15/17 03/15/17 07:00 15:00 23:00 07:00 15:00 23:00 Intake Total 100 ml 200 ml 300 ml 290 ml 260 ml Output Total 300 ml 600 ml 550 ml Balance -200 ml -400 ml 300 ml 290 ml -290 ml Intake Oral 60 ml IV Total 100 ml 200 ml 90 ml 200 ml Other 300 ml 200 ml Output Urine Total 300 ml 600 ml 550 ml # Voids 1 # Bowel Movements 0 0 0 Result Diagram: 03/14/17 1004 03/14/17 1004 Imaging Last Impressions Chest X-Ray 03/14/17 0600 Signed Impressions: Service Date/Time: Tuesday, March 14, 2017 03:59 - CONCLUSION: 1. Left lower lobe atelectasis versus pneumonia. The findings are improved when compared with the prior exam. There is better aeration of the left lung when compared to the prior study Phillip Wheat MD Thoracic Spine CT 03/14/17 0000 Signed Impressions: Service Date/Time: Tuesday, March 14, 2017 16:31 - CONCLUSION: 1. There is a moderate compression deformity of T5 not significantly changed from CT in January. Osteopenia. Bilateral pleural effusions. Giorgio Maldonado MD Lumbar Spine CT 03/14/17 0000 Signed Impressions: Service Date/Time: Tuesday, March 14, 2017 16:31 - CONCLUSION: 1. Mild compression deformity of L1 which appears chronic. Osteopenia. No acute fracture seen. 2. Mild posterior disc protrusion at L5-S1, slightly worse on the left side with encroachment on the left lateral recess. Giorgio Maldonado MD CT Angiography 03/13/17 0000 Signed Impressions: Service Date/Time: Monday, March 13, 2017 15:12 - CONCLUSION: Interval development of left lower lobe collapse secondary to endobronchial soft tissue density with intermixed air lucency having the appearance of mucous plugging and debris. Bilateral pleural effusions, consolidation and atelectasis. There is no evidence of pulmonary embolus. Earl Araujo MD Objective Remarks awake and alert, anicteric lungs decreased breath sounds, no rales, no wheezes regular rhythm abdomen soft, nontender, PEG in place extremities-no edema motor 5/5 both UE LE- limited by pain, more extension movement, grossly no sensory deficits A/P Problem List: (1) Sepsis ICD Code: A41.9 Status: Acute (2) Mucus plugging of bronchi ICD Code: J98.09 Status: Acute (3) Pneumonia ICD Code: J18.9 Status: Acute (4) DM (diabetes mellitus) ICD Code: E11.9 Status: Chronic (5) A-fib ICD Code: I48.91 Status: Chronic (6) Nausea and vomiting ICD Code: R11.2 Status: Acute (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 Sepsis per criteria, WBC 12.8, HR 94, suspected pneumonia -on Zosyn Q6hr -ff CBC -Sputum culture blood cultures negative so far Mucus plug in bronchi Images: chest xray shows Mild volume loss left hemithorax with left lower lobe collapse suspected with dense consolidative opacity seen and left mainstem bronchus air column cutoff noted. CTA shows Interval development of left lower lobe collapse secondary to endobronchial soft tissue density with intermixed air lucency having the appearance of mucous plugging and debris. Bilateral pleural effusions, consolidation and atelectasis. There is no evidence of pulmonary embolus. -pulmonology, Dr. Aguayo is planning do a bronchoscopy the patient - Monitor 02 sats -ABG compensated respiratory acidosis -decrease Solumedrol to 40 q 12 Pneumonia, likely aspirated pneumonia due to multiple vomiting episodes -Cont antibiotics as above -Chest xray - no acute change- films reviewed -Oxygen as needed, currently on 3L Nausea and vomiting- no further episodes here History of Gastroparesis -start tube feedings- PEG -Zofran and Reglan PRN DM, chronic -Accu checks AC/HS with SSI start long activing insulin 10 units bid (as OP on 20 units bid) Afib, chronic- in SR -Monitor tele- in SR. On Xarelto- hold for possible procedure -Continue home cardizem, and amiodarone Severe back pain-on top of chronic on Morphine change to IV Dilaudid and monitor of respiratory status Fentanyl patch Depression/anxiety continue Meds. Ativan IV prn get psychiatry consult- for recommendations DVT prophylaxus: SCDs, On Xarelto- hold for possible procedure GI prophylaxis: Protonix d/w Problem Qualifiers (1) DM (diabetes mellitus): Amy Jenkins MD Mar 15, 2017 16:49
[2017-03-15] MEDS: PANTOPRAZOLE SODIUM 40 MG VIAL IV PUSH SCH (19:43)
[2017-03-15] MEDS: traZODone HCL 100 MG TAB PO SCH (19:45)
[2017-03-15] MEDS: ATORVASTATIN 40 MG TAB PO SCH (19:46)
[2017-03-15] MEDS: LORazepam 2 MG/ML VIAL IV PRN (22:00)
[2017-03-16] VITALS (14 sets, daily range): BP systolic 120–144; BP diastolic 58–66; PULSE 78–85; RESP 16–22; TEMP 97.8–98.8; O2SAT 92–97
[2017-03-16] MEDS: PIPERACIL-TAZO 4.5 GM PREMIX 100 ML IV SCH ×4 (00:02→17:16)
[2017-03-16] MEDS: methylPREDNISolone SOD SUCC 40 MG/1 ML VIAL IV PUSH SCH ×2 (01:36→12:37)
[2017-03-16] MEDS: HYDROmorphone HCL PF 1 MG/ML VIAL IV PUSH PRN ×4 (02:29→21:08)
[2017-03-16] MEDS: RESP: ALBUTEROL 2.5 MG/IPRATROPIUM 0.5 MG NEB (SCH) NEB ×4 (03:33→20:21)
[2017-03-16] MEDS: CHLORHEXIDINE GLUCONATE 2 % 1 PACK (2 CLOTHS)(taper/protocol) TOPICAL SCH (03:48)
[2017-03-16] MEDS: INSULIN ASPART SUPPLEMENTAL SCALE SQ SCH ×4 (06:17→21:00)
[2017-03-16] MEDS: DILTIAZEM-CD 240 MG CAP ER PO SCH ×2 (08:23→22:01)
[2017-03-16] MEDS: AMIODARONE 200 MG TAB PO SCH (08:23)
[2017-03-16] MEDS: VENLAFAXINE HCL XR 75 MG CAP PO SCH (12:36)
[2017-03-16] MEDS: ENOXAPARIN SODIUM 30 MG/0.3 ML SYRINGE SQ SCH (12:38)
--- NOTE | 2017-03-16 13:23 | HHI.PR ---
Subjective Remarks seen with at bedside appears more comfortable- pain improved patient more interactive and joking around passed speech therapy swallowing- tolerated well Objective Vitals Vital Signs Date Time Temp Pulse Resp B/P Pulse Ox O2 Delivery O2 Flow Rate FiO2 03/16/17 09:32 97 Nasal Cannula 2.00 03/16/17 08:00 98.2 84 20 123/59 94 03/16/17 08:00 82 03/16/17 06:00 80 03/16/17 04:00 80 03/16/17 04:00 98.1 80 22 123/59 94 03/16/17 02:00 78 03/16/17 00:00 97.8 82 20 120/59 95 03/16/17 00:00 80 03/15/17 22:00 76 03/15/17 20:19 94 Nasal Cannula 2.00 03/15/17 20:00 97.6 75 20 129/58 93 03/15/17 20:00 75 03/15/17 18:00 79 03/15/17 16:15 12 03/15/17 16:00 76 03/15/17 16:00 98.3 76 14 127/60 93 03/15/17 14:00 75 I/O 03/15/17 03/15/17 03/15/17 03/16/17 03/16/17 03/16/17 07:00 15:00 23:00 07:00 15:00 23:00 Intake Total 290 ml 260 ml 470 ml 580 ml Output Total 550 ml 300 ml 300 ml Balance 290 ml -290 ml 170 ml 280 ml Intake Oral 60 ml IV Total 90 ml 200 ml 100 ml 95 ml Tube Feeding 170 ml 185 ml Other 200 ml 200 ml 300 ml Output Urine Total 550 ml 300 ml 300 ml # Bowel Movements 0 Result Diagram: 03/14/17 1004 03/14/17 1004 Imaging Last Impressions Chest X-Ray 03/14/17 0600 Signed Impressions: Service Date/Time: Tuesday, March 14, 2017 03:59 - CONCLUSION: 1. Left lower lobe atelectasis versus pneumonia. The findings are improved when compared with the prior exam. There is better aeration of the left lung when compared to the prior study Phillip Wheat MD Thoracic Spine CT 03/14/17 0000 Signed Impressions: Service Date/Time: Tuesday, March 14, 2017 16:31 - CONCLUSION: 1. There is a moderate compression deformity of T5 not significantly changed from CT in January. Osteopenia. Bilateral pleural effusions. Giorgio Maldonado MD Lumbar Spine CT 03/14/17 0000 Signed Impressions: Service Date/Time: Tuesday, March 14, 2017 16:31 - CONCLUSION: 1. Mild compression deformity of L1 which appears chronic. Osteopenia. No acute fracture seen. 2. Mild posterior disc protrusion at L5-S1, slightly worse on the left side with encroachment on the left lateral recess. Giorgio Maldonado MD CT Angiography 03/13/17 0000 Signed Impressions: Service Date/Time: Monday, March 13, 2017 15:12 - CONCLUSION: Interval development of left lower lobe collapse secondary to endobronchial soft tissue density with intermixed air lucency having the appearance of mucous plugging and debris. Bilateral pleural effusions, consolidation and atelectasis. There is no evidence of pulmonary embolus. 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 Sepsis per criteria, WBC 12.8, HR 94, suspected pneumonia Pneumonia, likely aspirated pneumonia due to multiple vomiting episodes -Cont antibiotics as above -Chest xray - no acute change- films reviewed -Oxygen as needed, currently on 3L -on Zosyn Q6hr - clinically improving -Sputum culture blood cultures negative so far Mucus plug in bronchi Images: chest xray shows Mild volume loss left hemithorax with left lower lobe collapse suspected with dense consolidative opacity seen and left mainstem bronchus air column cutoff noted. CTA shows Interval development of left lower lobe collapse secondary to endobronchial soft tissue density with intermixed air lucency having the appearance of mucous plugging and debris. Bilateral pleural effusions, consolidation and atelectasis. There is no evidence of pulmonary embolus. -pulmonology, Dr. Aguayo is planning do a bronchoscopy the patient - Monitor 02 sats -ABG compensated respiratory acidosis - Solumedrol to 40 q 12 Consult radiation oncology- Dr. Casas known to him - re: radiation treatments due today Nausea and vomiting- no further episodes here History of Gastroparesis -tolerating tube feedings- PEG -Zofran and Reglan PRN DM, chronic -Accu checks AC/HS with SSI start long activing insulin 10 units bid (as OP on 20 units bid) Afib, chronic- in SR -Monitor tele- in SR. On Xarelto- hold for possible procedure -Continue home cardizem, and amiodarone Severe back pain-on top of chronic on Morphine change to IV Dilaudid and monitor of respiratory status Fentanyl patch Depression/anxiety continue Meds. Ativan IV prn DVT prophylaxus: SCDs, On Xarelto- hold for possible procedure GI prophylaxis: Protonix d/w Problem Qualifiers (1) DM (diabetes mellitus): Amy Jenkins MD Mar 16, 2017 13:23 Amy Jenkins MD Mar 16, 2017 13:23
--- NOTE | 2017-03-16 19:18 | HHI.PR ---
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 Anxious at BS Objective Vital Signs Vital Signs Date Time Temp Pulse Resp B/P Pulse Ox O2 Delivery O2 Flow Rate FiO2 03/16/17 18:00 85 03/16/17 17:44 22 03/16/17 16:00 98.8 85 20 129/60 92 03/16/17 16:00 81 03/16/17 14:00 83 03/16/17 12:00 83 03/16/17 12:00 98.6 80 18 144/66 94 03/16/17 10:00 82 03/16/17 09:32 97 Nasal Cannula 2.00 03/16/17 08:00 98.2 84 20 123/59 94 03/16/17 08:00 82 03/16/17 06:00 80 03/16/17 04:00 80 03/16/17 04:00 98.1 80 22 123/59 94 03/16/17 02:00 78 03/16/17 00:00 97.8 82 20 120/59 95 03/16/17 00:00 80 03/15/17 22:00 76 03/15/17 20:19 94 Nasal Cannula 2.00 03/15/17 20:00 97.6 75 20 129/58 93 03/15/17 20:00 75 I/O 03/15/17 03/15/17 03/15/17 03/16/17 03/16/17 03/16/17 07:00 15:00 23:00 07:00 15:00 23:00 Intake Total 290 ml 260 ml 470 ml 580 ml 484 ml Output Total 550 ml 300 ml 300 ml 400 ml Balance 290 ml -290 ml 170 ml 280 ml 84 ml Intake Oral 60 ml IV Total 90 ml 200 ml 100 ml 95 ml 115 ml Tube Feeding 170 ml 185 ml 369 ml Other 200 ml 200 ml 300 ml Output Urine Total 550 ml 300 ml 300 ml 400 ml # Bowel Movements 0 Result Diagram: 03/14/17 1004 03/14/17 1004 Objective Remarks GENERAL: MBMN WM, NAD SKIN: Warm and dry. HEAD: Normocephalic. EYES: No scleral icterus. No injection or drainage. NECK: Supple, trachea midline. No JVD or lymphadenopathy. CARDIOVASCULAR: Regular rate and rhythm without murmurs, gallops, or rubs. RESPIRATORY: Breath sounds equal bilaterally. No accessory muscle use. GASTROINTESTINAL: Abdomen soft, non-tender, nondistended. MUSCULOSKELETAL: No cyanosis, or edema. BACK: Nontender without obvious deformity. No CVA tenderness. A/P Assessment and Plan COPD Lung Infilt Sq Cell ca Epiglotis DM Anxiety PLAN: DW pt and Cont Aerosol nebs IV ABX Cont Solumedrol Supplement 02 SQ Lovenox Bimal Borden MD Mar 16, 2017 19:18
[2017-03-16] MEDS ORDERED: INSULIN HUMAN REGULAR 1,000 UNITS/10 ML VIAL IV PUSH ONE (22:00)
[2017-03-16] MEDS: ATORVASTATIN 40 MG TAB PO SCH (22:01)
[2017-03-16] MEDS: traZODone HCL 100 MG TAB PO SCH (22:01)
[2017-03-16] MEDS: PANTOPRAZOLE SODIUM 40 MG VIAL IV PUSH SCH (22:03)
[2017-03-17] VITALS (16 sets, daily range): BP systolic 117–142; BP diastolic 58–76; PULSE 79–97; RESP 14–20; TEMP 97.5–98.8; O2SAT 90–96
[2017-03-17] MEDS ORDERED: INSULIN HUMAN REGULAR 1,000 UNITS/10 ML VIAL IV PUSH ONE ×2 (00:15→01:30)
[2017-03-17] MEDS: PIPERACIL-TAZO 4.5 GM PREMIX 100 ML IV SCH ×4 (00:17→18:22)
[2017-03-17] MEDS: HYDROmorphone HCL PF 1 MG/ML VIAL IV PUSH PRN ×3 (01:16→15:03)
[2017-03-17] MEDS: methylPREDNISolone SOD SUCC 40 MG/1 ML VIAL IV PUSH SCH ×2 (01:32→12:27)
[2017-03-17] MEDS: RESP: ALBUTEROL 2.5 MG/IPRATROPIUM 0.5 MG NEB (SCH) NEB ×4 (03:32→19:38)
[2017-03-17] MEDS: CHLORHEXIDINE GLUCONATE 2 % 1 PACK (2 CLOTHS)(taper/protocol) TOPICAL SCH (04:00)
[2017-03-17] MEDS: INSULIN ASPART SUPPLEMENTAL SCALE SQ SCH ×3 (06:21→16:00)
[2017-03-17] MEDS: DILTIAZEM-CD 240 MG CAP ER PO SCH ×2 (08:27→20:47)
[2017-03-17] MEDS: AMIODARONE 200 MG TAB PO SCH (08:27)
[2017-03-17] MEDS: VENLAFAXINE HCL XR 75 MG CAP PO SCH (08:27)
--- NOTE | 2017-03-17 11:25 | MB ---
cc: KETTY OWEN M.D. 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 BRIEF HISTORY This gentleman is known to us. He has had a variety of health problems with multiple admissions over the past two to three months. 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 He has been assessed by speech pathology and is able to tolerate most foods, but has had a PEG tube placed. Unfortunately, he suffers with gastroparesis and has occasional vomiting, possibly if the feeds are to fast. He is also known to have diabetes. He was admitted to the hospital because of nausea and vomiting and he began to cough with increased shortness of breath. On imaging including a CT angiogram, he was found to have no evidence of a pulmonary emboli, however there is a new development of left lower lobe collapse secondary to an endobronchial soft tissue density with intermixed air lucency, but no pulmonary embolus. Since being in the hospital, this gentleman has stabilized. In speaking with him today, he was not short of breath, however, he was on oxygen by nasal prongs at approximately 5 liters per minute. He was assessed by Dr. Aguayo on 03/15 and there was a suggestion of a possible role of bronchoscopy, but today the patient is comfortable and does not appear to be in any distress. VITAL SIGNS Indicate that he is afebrile. His pulse ox was 96% on four liters per minute by nasal cannula, blood pressure 117/58. Unfortunately this gentleman has multiple health problems including gastroparesis with a PEG tube, diabetes mellitus which there has been some difficulty to control and he has had gastroparesis with nausea and vomiting. This may represent an aspiration pneumonia. With respect to this gentleman's head and neck cancer, he is comfortable. He does not appear to be short of breath and it would be to his advantage to restart treatment as soon as possible. I would hope that we can reinstitute his treatment today. Unfortunately, he has multiple factors including a profound weakness from his multiple hospitalizations and the sooner we can complete radiation treatment, he will have one less Problem. Unfortunately, he has chronic depression which is not helping and again I think resolving this one issue for him could have positive psychologic impact. We will bring him down for treatment as soon as his attending physicians feel that he is stable. MD CARINE Romero/YARED /9:06 AM /11:19 AM
[2017-03-17] MEDS: ENOXAPARIN SODIUM 30 MG/0.3 ML SYRINGE SQ SCH (12:24)
[2017-03-17] MEDS: fentaNYL 50 MCG/HR PATCH TOPICAL SCH (12:26)
[2017-03-17] MEDS: REMOVE OLD DURAGESIC (FENTANYL) PATCH T-DERMAL SCH (12:26)
[2017-03-17] MEDS: ONDANSETRON HCL 4 MG/2 ML VIAL IV PUSH PRN (12:27)
[2017-03-17] MEDS: LORazepam 2 MG/ML VIAL IV PRN (13:50)
--- NOTE | 2017-03-17 18:01 | HHI.PR ---
Subjective Remarks did more physical therapy today- sat at the edge tolerated XRT today Objective Vitals Vital Signs Date Time Temp Pulse Resp B/P Pulse Ox O2 Delivery O2 Flow Rate FiO2 03/17/17 16:00 98.1 83 18 142/76 94 03/17/17 16:00 97 03/17/17 15:33 18 03/17/17 14:00 80 03/17/17 12:00 98.3 79 20 131/62 92 03/17/17 12:00 84 03/17/17 10:00 79 03/17/17 08:00 83 03/17/17 08:00 97.5 85 18 126/60 96 03/17/17 07:58 96 Nasal Cannula 4.00 03/17/17 06:00 79 03/17/17 04:00 98.6 83 16 117/58 90 03/17/17 04:00 83 03/17/17 03:32 92 Nasal Cannula 5.00 03/17/17 02:00 83 03/17/17 00:00 86 03/17/17 00:00 98.8 86 16 125/59 92 03/16/17 22:00 85 03/16/17 20:21 92 Nasal Cannula 2.00 03/16/17 20:00 98.3 83 16 123/58 95 03/16/17 20:00 83 I/O 03/16/17 03/16/17 03/16/17 03/17/17 03/17/17 03/17/17 07:00 15:00 23:00 07:00 15:00 23:00 Intake Total 580 ml 484 ml 446 ml 1250 ml 645 ml Output Total 300 ml 400 ml 600 ml 525 ml 900 ml Balance 280 ml 84 ml -154 ml 725 ml -255 ml Intake Oral 700 ml 300 ml IV Total 95 ml 115 ml 190 ml 200 ml 100 ml Tube Feeding 185 ml 369 ml 256 ml 350 ml 245 ml Other 300 ml Output Urine Total 300 ml 400 ml 600 ml 525 ml 900 ml Result Diagram: 03/14/17 1004 03/16/17 2105 Imaging Last Impressions Chest X-Ray 03/14/17 0600 Signed Impressions: Service Date/Time: Tuesday, March 14, 2017 03:59 - CONCLUSION: 1. Left lower lobe atelectasis versus pneumonia. The findings are improved when compared with the prior exam. There is better aeration of the left lung when compared to the prior study Phillip Wheat MD Thoracic Spine CT 03/14/17 0000 Signed Impressions: Service Date/Time: Tuesday, March 14, 2017 16:31 - CONCLUSION: 1. There is a moderate compression deformity of T5 not significantly changed from CT in January. Osteopenia. Bilateral pleural effusions. Giorgio Maldonado MD Lumbar Spine CT 03/14/17 0000 Signed Impressions: Service Date/Time: Tuesday, March 14, 2017 16:31 - CONCLUSION: 1. Mild compression deformity of L1 which appears chronic. Osteopenia. No acute fracture seen. 2. Mild posterior disc protrusion at L5-S1, slightly worse on the left side with encroachment on the left lateral recess. Giorgio Maldonado MD CT Angiography 03/13/17 0000 Signed Impressions: Service Date/Time: Monday, March 13, 2017 15:12 - CONCLUSION: Interval development of left lower lobe collapse secondary to endobronchial soft tissue density with intermixed air lucency having the appearance of mucous plugging and debris. Bilateral pleural effusions, consolidation and atelectasis. There is no evidence of pulmonary embolus. Earl Araujo MD Objective Remarks awake and alert, scowling look anicteric lungs decreased breath sounds, no rales, no wheezes, occasional rhonchi regular rhythm abdomen soft, nontender, PEG in place extremities-no edema motor 5/5 both UE, slight pedal edema LE- more extension movement, grossly no sensory deficits A/P Problem List: (1) Sepsis ICD Code: A41.9 Status: Acute (2) Mucus plugging of bronchi ICD Code: J98.09 Status: Acute (3) Pneumonia ICD Code: J18.9 Status: Acute (4) DM (diabetes mellitus) ICD Code: E11.9 Status: Chronic (5) A-fib ICD Code: I48.91 Status: Chronic (6) Nausea and vomiting ICD Code: R11.2 Status: Acute (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 Sepsis per criteria, WBC 12.8, HR 94, suspected pneumonia Pneumonia, likely aspirated pneumonia due to multiple vomiting episodes -Cont antibiotics as above -Chest xray - no acute change- -Oxygen as needed, currently on 3L -on Zosyn Q6hr - clinically improving -Sputum culture blood cultures negative so far Mucus plug in bronchi Images: chest xray shows Mild volume loss left hemithorax with left lower lobe collapse suspected with dense consolidative opacity seen and left mainstem bronchus air column cutoff noted. CTA shows Interval development of left lower lobe collapse secondary to endobronchial soft tissue density with intermixed air lucency having the appearance of mucous plugging and debris. Bilateral pleural effusions, consolidation and atelectasis. There is no evidence of pulmonary embolus. -pulmonology, ff- d/w Dr. Borden - no plan for bronchoscopy - Monitor 02 sats -ABG compensated respiratory acidosis - Solumedrol to 40 q 12 Radiation treatment - Dr. Casas known to him - re: radiation treatments started Nausea and vomiting- no further episodes here History of Gastroparesis -tolerating tube feedings- PEG -Zofran and Reglan PRN DM, chronic- elevated readings due to steroids -Accu checks AC/HS with SSI start long activing insulin 20 nits bid Afib, chronic- in SR -Monitor tele- in SR. On Xarelto- restart Xarelto -Continue home cardizem, and amiodarone Severe back pain-on top of chronic on Morphine change to IV Dilaudid and monitor of respiratory status Fentanyl patch Depression/anxiety continue Meds. Ativan IV prn DVT prophylaxus: SCDs, On Xarelto- hold for possible procedure GI prophylaxis: Protonix d/w Problem Qualifiers (1) DM (diabetes mellitus): Amy Jenkins MD Mar 17, 2017 18:01
[2017-03-17] MEDS ORDERED: GLUCAGON 1 MG/ML VIAL OTHER PRN (18:15)
[2017-03-17] MEDS: INSULIN DETEMIR 100 UNITS/ML VIAL SQ SCH (18:22)
--- NOTE | 2017-03-17 19:16 | HHI.PR ---
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 Anxious at BS Had Radiation treatment today Objective Vital Signs Vital Signs Date Time Temp Pulse Resp B/P Pulse Ox O2 Delivery O2 Flow Rate FiO2 03/17/17 18:00 85 03/17/17 16:00 98.1 83 18 142/76 94 03/17/17 16:00 97 03/17/17 15:33 18 03/17/17 14:00 80 03/17/17 12:00 98.3 79 20 131/62 92 03/17/17 12:00 84 03/17/17 10:00 79 03/17/17 08:00 83 03/17/17 08:00 97.5 85 18 126/60 96 03/17/17 07:58 96 Nasal Cannula 4.00 03/17/17 06:00 79 03/17/17 04:00 98.6 83 16 117/58 90 03/17/17 04:00 83 03/17/17 03:32 92 Nasal Cannula 5.00 03/17/17 02:00 83 03/17/17 00:00 86 03/17/17 00:00 98.8 86 16 125/59 92 03/16/17 22:00 85 03/16/17 20:21 92 Nasal Cannula 2.00 03/16/17 20:00 98.3 83 16 123/58 95 03/16/17 20:00 83 I/O 03/16/17 03/16/17 03/16/17 03/17/17 03/17/17 03/17/17 07:00 15:00 23:00 07:00 15:00 23:00 Intake Total 580 ml 484 ml 446 ml 1250 ml 645 ml Output Total 300 ml 400 ml 600 ml 525 ml 900 ml Balance 280 ml 84 ml -154 ml 725 ml -255 ml Intake Oral 700 ml 300 ml IV Total 95 ml 115 ml 190 ml 200 ml 100 ml Tube Feeding 185 ml 369 ml 256 ml 350 ml 245 ml Other 300 ml Output Urine Total 300 ml 400 ml 600 ml 525 ml 900 ml Result Diagram: 03/14/17 1004 03/16/172104 Objective Remarks GENERAL: MBMN WM, NAD SKIN: Warm and dry. HEAD: Normocephalic. EYES: No scleral icterus. No injection or drainage. NECK: Supple, trachea midline. No JVD or lymphadenopathy. CARDIOVASCULAR: Regular rate and rhythm without murmurs, gallops, or rubs. RESPIRATORY: Breath sounds equal bilaterally. No accessory muscle use. GASTROINTESTINAL: Abdomen soft, non-tender, nondistended. MUSCULOSKELETAL: No cyanosis, or edema. BACK: Nontender without obvious deformity. No CVA tenderness. A/P Assessment and Plan COPD Lung Infilt Sq Cell ca Epiglotis DM Anxiety PLAN: DW pt and Cont Aerosol nebs IV ABX Cont Solumedrol Supplement 02 SQ Lovenox Radiation treatments per Dr.Krochak Borden,Bimal Wilson MD Mar 17, 2017 19:16
[2017-03-17] MEDS ORDERED: INSULIN DETEMIR 20 UNIT SQ SCH (20:00)
[2017-03-17] MEDS: traZODone HCL 100 MG TAB PO SCH (20:47)
[2017-03-17] MEDS: ATORVASTATIN 40 MG TAB PO SCH (20:47)
[2017-03-17] MEDS: PANTOPRAZOLE SODIUM 40 MG VIAL IV PUSH SCH (20:47)
[2017-03-17] MEDS: INSULIN NovoLIN REGULAR SUPPLEMENTAL SCALE SQ SCH (20:47)
--- NOTE | 2017-03-17 22:23 | RADRPT ---
EXAM DATE/TIME: 03/17/2017 21:49 [facility] COMPARISON: CHEST SINGLE AP, March 14, 2017, 3:59. INDICATIONS : Congestion. MEDICAL HISTORY : Cardiovascular disease. Chronic obstructive pulmonary disease. Hypertension. Diabetes. SURGICAL HISTORY : Cardiac cath. ENCOUNTER: Subsequent ACUITY: 4 - 6 days PAIN SCORE: 0/10 LOCATION: Bilateral chest FINDINGS: A single view of the chest demonstrates basilar lung consolidation and small effusions. Cardiomegaly. No pneumothorax. Screw fixation proximal left humerus. CONCLUSION: 1. Basilar lung consolidation and small pleural effusions. No pneumothorax. Giorgio Maldonado MD on March 17, 2017 at 22:20 Board Certified Radiologist. This report was verified electronically.
[2017-03-17 23:10] LABS: AUTOMATED NEUTROPHIL # 8.7 TH/MM3 (1.8-7.7); BASOPHIL % 0.3 % (0.0-2.0); HEMATOCRIT 37.4 % (39.0-51.0); HEMO FLAGS DIFF FINAL; LYMPH % 1.8 % (9.0-44.0); LYMPHOCYTE # 0.2 TH/MM3 (1.0-4.8); MEAN CELL VOLUME 87.8 FL (80.0-100.0); MEAN CORPUSCULAR HEMOGLOBIN 28.4 PG (27.0-34.0); MEAN CORPUSCULAR HGB CONC 32.3 % (32.0-36.0); MONO % 2.4 % (0.0-8.0); NEUT % 95.5 % (16.0-70.0); PLATELET COUNT 240 TH/MM3 (150-450); RED BLOOD COUNT 4.25 MIL/MM3 (4.50-5.90); RED CELL DISTRIBUTION WIDTH 20.3 % (11.6-17.2); WHITE BLOOD COUNT 9.1 TH/MM3 (4.0-11.0)
[2017-03-17 23:38] LABS: BICARBONATE 31.3 MEQ/L (21.0-32.0); POTASSIUM 4.4 MEQ/L (3.5-5.1)
[2017-03-18] VITALS (15 sets, daily range): BP systolic 116–137; BP diastolic 56–75; PULSE 78–98; RESP 14–18; TEMP 98–98.6; O2SAT 92–99
[2017-03-18] MEDS: PIPERACIL-TAZO 4.5 GM PREMIX 100 ML IV SCH ×4 (02:16→17:54)
[2017-03-18] MEDS: methylPREDNISolone SOD SUCC 40 MG/1 ML VIAL IV PUSH SCH ×2 (02:16→13:43)
[2017-03-18] MEDS: HYDROmorphone HCL PF 1 MG/ML VIAL IV PUSH PRN ×4 (02:17→13:44)
[2017-03-18] MEDS: RESP: ALBUTEROL 2.5 MG/IPRATROPIUM 0.5 MG NEB (SCH) NEB ×4 (03:24→21:33)
[2017-03-18] MEDS: CHLORHEXIDINE GLUCONATE 2 % 1 PACK (2 CLOTHS)(taper/protocol) TOPICAL SCH (04:00)
[2017-03-18] MEDS: METOCLOPRAMIDE HCL 10 MG/2 ML VIAL IV PUSH PRN (06:08)
[2017-03-18] MEDS: SENNOSIDES 8.6 MG TAB PO PRN (06:09)
[2017-03-18] MEDS: BISACODYL 10 MG SUPP RECTAL PRN (06:09)
[2017-03-18] MEDS: SODIUM CHLOR 0.9% 1000 ML INJ 1,000 ML IV SCH ×2 (06:10→15:54)
[2017-03-18] MEDS: INSULIN NovoLIN REGULAR SUPPLEMENTAL SCALE SQ SCH ×4 (06:23→20:12)
[2017-03-18] MEDS: RIVAROXABAN 20 MG TAB PO SCH (08:11)
[2017-03-18] MEDS: DILTIAZEM-CD 240 MG CAP ER PO SCH ×2 (08:11→20:04)
[2017-03-18] MEDS: AMIODARONE 200 MG TAB PO SCH (08:12)
[2017-03-18] MEDS: VENLAFAXINE HCL XR 75 MG CAP PO SCH (08:12)
[2017-03-18] MEDS: INSULIN DETEMIR 100 UNITS/ML VIAL SQ SCH ×2 (08:16→20:04)
[2017-03-18] MEDS: LORazepam 1 MG TAB PO PRN (11:50)
--- NOTE | 2017-03-18 17:47 | HHI.PR ---
Subjective Remarks awake and alert very interactive no pain complains + BM did some physical therapy- motivated lungs sounds better Objective Vitals Vital Signs Date Time Temp Pulse Resp B/P Pulse Ox O2 Delivery O2 Flow Rate FiO2 03/18/17 16:00 79 03/18/17 16:00 98.6 79 14 137/75 94 03/18/17 14:14 14 03/18/17 14:00 78 03/18/17 11:45 81 03/18/17 11:45 98.3 81 16 127/72 94 03/18/17 10:00 80 03/18/17 08:09 95 Nasal Cannula 4.00 03/18/17 08:00 80 03/18/17 08:00 98.5 80 14 121/66 95 03/18/17 06:00 80 03/18/17 04:00 79 03/18/17 04:00 98.4 80 14 133/72 92 03/18/17 03:24 96 Nasal Cannula 4.00 03/18/17 02:00 83 03/18/17 00:00 85 03/18/17 00:00 98.2 85 16 116/66 96 03/17/17 22:00 85 03/17/17 20:00 87 03/17/17 20:00 98.3 85 14 132/74 96 03/17/17 19:38 93 Nasal Cannula 4.00 03/17/17 18:00 85 I/O 03/17/17 03/17/17 03/17/17 03/18/17 03/18/17 03/18/17 07:00 15:00 23:00 07:00 15:00 23:00 Intake Total 1250 ml 645 ml 1102 ml 1367 ml Output Total 525 ml 900 ml 175 ml 275 ml Balance 725 ml -255 ml 927 ml 1092 ml Intake Oral 700 ml 300 ml 720 ml 220 ml IV Total 200 ml 100 ml 110 ml 466 ml Tube Feeding 350 ml 245 ml 272 ml 681 ml Output Urine Total 525 ml 900 ml 175 ml 275 ml Result Diagram: 03/17/17222703/17/172227 Imaging Last Impressions Chest X-Ray 03/17/17 0000 Signed Impressions: Service Date/Time: Friday, March 17, 2017 21:49 - CONCLUSION: 1. Basilar lung consolidation and small pleural effusions. No pneumothorax. Giorgio Maldonado MD Thoracic Spine CT 03/14/17 0000 Signed Impressions: Service Date/Time: Tuesday, March 14, 2017 16:31 - CONCLUSION: 1. There is a moderate compression deformity of T5 not significantly changed from CT in January. Osteopenia. Bilateral pleural effusions. Giorgio Maldonado MD Lumbar Spine CT 03/14/17 0000 Signed Impressions: Service Date/Time: Tuesday, March 14, 2017 16:31 - CONCLUSION: 1. Mild compression deformity of L1 which appears chronic. Osteopenia. No acute fracture seen. 2. Mild posterior disc protrusion at L5-S1, slightly worse on the left side with encroachment on the left lateral recess. Giorgio Maldonado MD CT Angiography 03/13/17 0000 Signed Impressions: Service Date/Time: Monday, March 13, 2017 15:12 - CONCLUSION: Interval development of left lower lobe collapse secondary to endobronchial soft tissue density with intermixed air lucency having the appearance of mucous plugging and debris. Bilateral pleural effusions, consolidation and atelectasis. There is no evidence of pulmonary embolus. Earl Araujo MD Objective Remarks awake and alert,in better spirits- joking anicteric lungs decreased breath sounds, no rales, no wheezes, regular rhythm abdomen soft, nontender, PEG in place extremities-no edema motor 5/5 both UE, slight pedal edema LE- more extension movement, grossly no sensory deficits A/P Problem List: (1) Sepsis ICD Code: A41.9 Status: Acute (2) Mucus plugging of bronchi ICD Code: J98.09 Status: Acute (3) Pneumonia ICD Code: J18.9 Status: Acute (4) DM (diabetes mellitus) ICD Code: E11.9 Status: Chronic (5) A-fib ICD Code: I48.91 Status: Chronic (6) Nausea and vomiting ICD Code: R11.2 Status: Acute (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 Sepsis per criteria, WBC 12.8, HR 94, suspected pneumonia Pneumonia, likely aspirated pneumonia due to multiple vomiting episodes -Cont antibiotics as above -Chest xray - no acute change- -Oxygen as needed, currently on 3L -on Zosyn Q6hr - clinically improving -Sputum culture blood cultures negative so far Mucus plug in bronchi Images: chest xray shows Mild volume loss left hemithorax with left lower lobe collapse suspected with dense consolidative opacity seen and left mainstem bronchus air column cutoff noted. CTA shows Interval development of left lower lobe collapse secondary to endobronchial soft tissue density with intermixed air lucency having the appearance of mucous plugging and debris. Bilateral pleural effusions, consolidation and atelectasis. There is no evidence of pulmonary embolus. -pulmonology, ff- d/w Dr. Borden - no plan for bronchoscopy - Monitor 02 sats -ABG compensated respiratory acidosis - Solumedrol to 40 q 12- change to po Radiation treatment - Dr. Casas known to him - re: radiation treatments started Nausea and vomiting- resolved History of Gastroparesis -tolerating tube feedings- PEG -Zofran and Reglan PRN DM, chronic- elevated readings due to steroids -Accu checks AC/HS with SSI start long acting insulin 20 nits bid Afib, chronic- in SR -Monitor tele- in SR. On Xarelto- restart Xarelto -Continue home cardizem, and amiodarone Severe back pain-on top of chronic on Morphine change to IV Dilaudid and monitor of respiratory status Fentanyl patch Depression/anxiety continue Meds. Ativan IV prn DVT prophylaxus: SCDs, On Xarelto- hold for possible procedure GI prophylaxis: Protonix transfer to floor Problem Qualifiers (1) DM (diabetes mellitus): Amy Jenkins MD Mar 18, 2017 17:47
--- NOTE | 2017-03-18 19:52 | HHI.PR ---
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 Anxious and daughter at BS Had Radiation treatment today Ate good. Objective Vital Signs Vital Signs Date Time Temp Pulse Resp B/P Pulse Ox O2 Delivery O2 Flow Rate FiO2 03/18/17 18:00 78 03/18/17 16:00 79 03/18/17 16:00 98.6 79 14 137/75 94 03/18/17 14:14 14 03/18/17 14:00 78 03/18/17 11:45 81 03/18/17 11:45 98.3 81 16 127/72 94 03/18/17 10:00 80 03/18/17 08:09 95 Nasal Cannula 4.00 03/18/17 08:00 80 03/18/17 08:00 98.5 80 14 121/66 95 03/18/17 06:00 80 03/18/17 04:00 79 03/18/17 04:00 98.4 80 14 133/72 92 03/18/17 03:24 96 Nasal Cannula 4.00 03/18/17 02:00 83 03/18/17 00:00 85 03/18/17 00:00 98.2 85 16 116/66 96 03/17/17 22:00 85 03/17/17 20:00 87 03/17/17 20:00 98.3 85 14 132/74 96 I/O 03/17/17 03/17/17 03/17/17 03/18/17 03/18/17 03/18/17 07:00 15:00 23:00 07:00 15:00 23:00 Intake Total 1250 ml 645 ml 1102 ml 1367 ml Output Total 525 ml 900 ml 175 ml 275 ml Balance 725 ml -255 ml 927 ml 1092 ml Intake Oral 700 ml 300 ml 720 ml 220 ml IV Total 200 ml 100 ml 110 ml 466 ml Tube Feeding 350 ml 245 ml 272 ml 681 ml Output Urine Total 525 ml 900 ml 175 ml 275 ml Result Diagram: 03/17/17222703/17/172227 Objective Remarks GENERAL: MBMN WM, NAD SKIN: Warm and dry. HEAD: Normocephalic. EYES: No scleral icterus. No injection or drainage. NECK: Supple, trachea midline. No JVD or lymphadenopathy. CARDIOVASCULAR: Regular rate and rhythm without murmurs, gallops, or rubs. RESPIRATORY: Breath sounds equal bilaterally. No accessory muscle use. GASTROINTESTINAL: Abdomen soft, non-tender, nondistended. MUSCULOSKELETAL: No cyanosis, or edema. BACK: Nontender without obvious deformity. No CVA tenderness. A/P Assessment and Plan COPD Lung Infilt Sq Cell ca Epiglotis DM Anxiety PLAN: DW pt and Cont Aerosol nebs IV ABX Supplement 02 SQ Lovenox Radiation treatments per Dr.Krochak HODGES family at BS Suha,Bimal Wilson MD Mar 18, 2017 19:52
[2017-03-18] MEDS: PANTOPRAZOLE SODIUM 40 MG VIAL IV PUSH SCH (20:04)
[2017-03-18] MEDS: ATORVASTATIN 40 MG TAB PO SCH (20:05)
[2017-03-18] MEDS: predniSONE 20 MG TAB PO SCH (20:05)
[2017-03-18] MEDS: traZODone HCL 100 MG TAB PO SCH (20:05)
[2017-03-18] MEDS: LORazepam 2 MG/ML VIAL IV PRN (20:13)
[2017-03-19] VITALS (11 sets, daily range): BP systolic 104–154; BP diastolic 61–86; PULSE 79–82; RESP 18–20; TEMP 97.3–97.8; O2SAT 94–99
[2017-03-19] MEDS: PIPERACIL-TAZO 4.5 GM PREMIX 100 ML IV SCH ×5 (02:09→17:25)
[2017-03-19] MEDS: SODIUM CHLOR 0.9% 1000 ML INJ 1,000 ML IV SCH (03:56)
[2017-03-19] MEDS: RESP: ALBUTEROL 2.5 MG/IPRATROPIUM 0.5 MG NEB (SCH) NEB ×2 (03:58→09:15)
[2017-03-19] MEDS: INSULIN NovoLIN REGULAR SUPPLEMENTAL SCALE SQ SCH ×4 (06:56→20:45)
--- NOTE | 2017-03-19 08:45 | HHI.PR ---
Subjective Remarks NO SOB AT REST LETHARGIC GBUT AROUSIBLE Objective Vital Signs Date Time Temp Pulse Resp B/P Pulse Ox O2 Delivery O2 Flow Rate FiO2 03/19/17 08:00 97.4 79 20 134/67 99 03/19/17 04:00 97.4 79 20 104/61 95 03/19/17 03:59 98 Nasal Cannula 4.00 03/19/17 00:00 97.4 80 18 129/70 94 03/18/17 22:00 98 03/18/17 21:33 96 Nasal Cannula 4.00 03/18/17 20:00 98.0 94 18 116/56 99 03/18/17 20:00 94 03/18/17 18:00 78 03/18/17 16:00 79 03/18/17 16:00 98.6 79 14 137/75 94 03/18/17 14:14 14 03/18/17 14:00 78 03/18/17 11:45 81 03/18/17 11:45 98.3 81 16 127/72 94 03/18/17 10:00 80 I/O 03/18/17 03/18/17 03/18/17 03/19/17 03/19/17 03/19/17 07:00 15:00 23:00 07:00 15:00 23:00 Intake Total 1367 ml 751 ml 0 ml Output Total 275 ml 500 ml Balance 1092 ml 251 ml 0 ml Intake Oral 220 ml 0 ml IV Total 466 ml 432 ml Tube Feeding 681 ml 319 ml Output Urine Total 275 ml 500 ml # Voids 0 # Bowel Movements 0 Result Diagram: 03/17/17222703/17/172227 Objective Remarks GENERAL: SKIN: Warm and dry. HEAD: Atraumatic. Normocephalic. EYES: Pupils equal and round. No scleral icterus. No injection or drainage. ENT: No nasal bleeding or discharge. Mucous membranes pink and moist. NECK: Trachea midline. No JVD. CARDIOVASCULAR: Regular rate and rhythm. RESPIRATORY: No accessory muscle use. Clear to auscultation. Breath sounds equal bilaterally. GASTROINTESTINAL: Abdomen soft, non-tender, nondistended. Hepatic and splenic margins not palpable. MUSCULOSKELETAL: Extremities without clubbing, cyanosis, or edema. No obvious deformities. NEUROLOGICAL: Awake and alert. No obvious cranial nerve deficits. Motor grossly within normal limits. Five out of 5 muscle strength in the arms and legs. Normal speech. PSYCHIATRIC: Appropriate mood and affect; insight and judgment normal. Assessment and Plan Assessment and Plan RESPIRATORY FAILURE COPD LARYNGEAL CA ATLECTASIS VS PNA PLAN O2 ANTIBIOTICS PULM TOILET BRONCHOSCOPY IF NEEDED Dede Aguayo MD Mar 19, 2017 08:45
[2017-03-19] MEDS: predniSONE 20 MG TAB PO SCH ×2 (09:29→20:35)
[2017-03-19] MEDS: RIVAROXABAN 20 MG TAB PO SCH (09:29)
[2017-03-19] MEDS: AMIODARONE 200 MG TAB PO SCH (09:30)
[2017-03-19] MEDS: DILTIAZEM-CD 240 MG CAP ER PO SCH ×2 (09:30→20:36)
[2017-03-19] MEDS: VENLAFAXINE HCL XR 75 MG CAP PO SCH (09:30)
[2017-03-19] MEDS: INSULIN DETEMIR 100 UNITS/ML VIAL SQ SCH ×2 (09:31→20:45)
--- NOTE | 2017-03-19 12:49 | HHI.PR ---
Subjective Remarks going for XRT today drowsy but easily awakens- weak cough Objective Vitals Vital Signs Date Time Temp Pulse Resp B/P Pulse Ox O2 Delivery O2 Flow Rate FiO2 03/19/17 12:00 97.3 79 20 146/67 98 03/19/17 09:18 96 Nasal Cannula 4.00 03/19/17 08:00 97.4 79 20 134/67 99 03/19/17 04:00 97.4 79 20 104/61 95 03/19/17 03:59 98 Nasal Cannula 4.00 03/19/17 00:00 97.4 80 18 129/70 94 03/18/17 22:00 98 03/18/17 21:33 96 Nasal Cannula 4.00 03/18/17 20:00 98.0 94 18 116/56 99 03/18/17 20:00 94 03/18/17 18:00 78 03/18/17 16:00 79 03/18/17 16:00 98.6 79 14 137/75 94 03/18/17 14:14 14 03/18/17 14:00 78 I/O 03/18/17 03/18/17 03/18/17 03/19/17 03/19/17 03/19/17 07:00 15:00 23:00 07:00 15:00 23:00 Intake Total 1367 ml 751 ml 0 ml Output Total 275 ml 500 ml 700 ml Balance 1092 ml 251 ml 0 ml -700 ml Intake Oral 220 ml 0 ml IV Total 466 ml 432 ml Tube Feeding 681 ml 319 ml Output Urine Total 275 ml 500 ml 700 ml # Voids 0 # Bowel Movements 0 Result Diagram: 03/17/17222703/17/172227 Imaging Last Impressions Chest X-Ray 03/17/17 0000 Signed Impressions: Service Date/Time: Friday, March 17, 2017 21:49 - CONCLUSION: 1. Basilar lung consolidation and small pleural effusions. No pneumothorax. Giorgio Maldonado MD Thoracic Spine CT 03/14/17 0000 Signed Impressions: Service Date/Time: Tuesday, March 14, 2017 16:31 - CONCLUSION: 1. There is a moderate compression deformity of T5 not significantly changed from CT in January. Osteopenia. Bilateral pleural effusions. Giorgio Maldonado MD Lumbar Spine CT 03/14/17 0000 Signed Impressions: Service Date/Time: Tuesday, March 14, 2017 16:31 - CONCLUSION: 1. Mild compression deformity of L1 which appears chronic. Osteopenia. No acute fracture seen. 2. Mild posterior disc protrusion at L5-S1, slightly worse on the left side with encroachment on the left lateral recess. Giorgio Maldonado MD CT Angiography 03/13/17 0000 Signed Impressions: Service Date/Time: Monday, March 13, 2017 15:12 - CONCLUSION: Interval development of left lower lobe collapse secondary to endobronchial soft tissue density with intermixed air lucency having the appearance of mucous plugging and debris. Bilateral pleural effusions, consolidation and atelectasis. There is no evidence of pulmonary embolus. Earl Araujo MD Objective Remarks awake ,drowsy anicteric lungs decreased breath sounds, + upper airway rhonchis regular rhythm abdomen soft, nontender, PEG in place extremities-no edema motor 5/5 both UE LE- more extension movement, grossly no sensory deficits bladder distended- + penile swelling - silva placed- drained 700 c Urinary Catheter: Yes Silva insert reason: Obstruction/Retention Date of Insertion: Mar 19, 2017 A/P Problem List: (1) Sepsis ICD Code: A41.9 Status: Acute (2) Mucus plugging of bronchi ICD Code: J98.09 Status: Acute (3) Pneumonia ICD Code: J18.9 Status: Acute (4) DM (diabetes mellitus) ICD Code: E11.9 Status: Chronic (5) A-fib ICD Code: I48.91 Status: Chronic (6) Nausea and vomiting ICD Code: R11.2 Status: Acute (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 Sepsis per criteria, WBC 12.8, HR 94, suspected pneumonia Pneumonia, likely aspirated pneumonia due to multiple vomiting episodes -Cont antibiotics as above -Repeat CXR now -Oxygen as needed, currently on 3L -continye on Zosyn Q6hr - clinically improving -Sputum culture blood cultures negative so far suction secretions Decrease in MS carrington ABG- lethargic Check CXR Images: chest xray shows Mild volume loss left hemithorax with left lower lobe collapse suspected with dense consolidative opacity seen and left mainstem bronchus air column cutoff noted. CTA shows Interval development of left lower lobe collapse secondary to endobronchial soft tissue density with intermixed air lucency having the appearance of mucous plugging and debris. Bilateral pleural effusions, consolidation and atelectasis. There is no evidence of pulmonary embolus. -pulmonology, ff- d/w Dr. Borden - no plan for bronchoscopy - Monitor 02 sats -ABG compensated respiratory acidosis -on po Prednisone Radiation treatment - Dr. Casas known to him - re: radiation treatments started Nausea and vomiting- resolved History of Gastroparesis -tolerating tube feedings- PEG -Zofran and Reglan PRN DM, chronic- elevated readings due to steroids -Accu checks AC/HS with SSI start long acting insulin 20 nits bid Afib, chronic- in SR -Monitor tele- in SR. On Xarelto- -Continue home cardizem, and amiodarone Severe back pain-on top of chronic on Morphine change to IV Dilaudid- decrease dose with decrease sensorium and monitor of respiratory status Fentanyl patch Depression/anxiety continue Meds. Ativan IV prn Acute urinary retention- silva placed 700 cc out- keep silva- 03/19 DVT prophylaxus: SCDs, On Xarelto- hold for possible procedure GI prophylaxis: Protonix transfer to floor Problem Qualifiers (1) DM (diabetes mellitus): Amy Jenkins MD Mar 19, 2017 12:49
[2017-03-19 13:11] LABS: BLOOD GAS BASE EXCESS 7.9 mmol/L (-2-2); BLOOD GAS CARBOXYHEMOGLOBIN 1.7 % (0-4); BLOOD GAS HCO3 32 mmol/L (22-26); BLOOD GAS METHEMOGLOBIN 0.8 % (0-2); BLOOD GAS O2 HGB SATURATION 91 % (90-100); BLOOD GAS OXYGEN CONTENT 15.7 Vol % (12.0-20.0); BLOOD GAS PCO2 42 mmHg (38-42); BLOOD GAS PO2 60 mmHg (61-120); BLOOD GAS TOTAL HGB 12.2 G/DL (12.0-16.0); TEMP CORR TO 98.6
[2017-03-19 13:12] LABS: CRITICAL VALUE NO; DRAW SITE RT RADIAL; LITER FLOW 2 L/M; NUMBER OF ARTERIAL PUNCTURES 1; OXYGEN DEVICE NASAL CANNULA; STAT YES; ULNAR PULSE PRESENT
--- NOTE | 2017-03-19 14:23 | RADRPT ---
EXAM DATE/TIME: 03/19/2017 13:14 [facility] COMPARISON: CHEST SINGLE AP, March 17, 2017, 21:49. INDICATIONS : Difficulty breathing. Atelectasis per order. MEDICAL HISTORY : Carcinoma, lung. SURGICAL HISTORY : None. ENCOUNTER: Subsequent ACUITY: 3 days PAIN SCORE: 0/10 LOCATION: Bilateral chest FINDINGS: Stable bibasilar patchiness is noted and is unchanged consistent with pneumonia and/or atelectasis. Small bilateral pleural effusions are stable. The heart is stable. CONCLUSION: 1. Stable bibasilar patchiness consistent with atelectasis and/or pneumonia. Clinical correlation is recommended, 2. Small bilateral pleural effusions are stable. David Tafoya MD on March 19, 2017 at 13:50 Board Certified Radiologist. This report was verified electronically.
[2017-03-19 17:44] LABS: BICARBONATE 28.4 MEQ/L (21.0-32.0); POTASSIUM 4.7 MEQ/L (3.5-5.1)
--- NOTE | 2017-03-19 20:14 | HHI.PR ---
Subjective Remarks 76 YOWm with COPD,Sq cell ca epiglotis, was on XRT [employer] evaluated, on thickened liq Mild sob. Anxious at BS Had Radiation treatment today had Zacarias placed due to urinary retention Objective Vital Signs Vital Signs Date Time Temp Pulse Resp B/P Pulse Ox O2 Delivery O2 Flow Rate FiO2 03/19/17 16:00 97.8 79 20 154/72 99 03/19/17 12:00 97.3 79 20 146/67 98 03/19/17 09:18 96 Nasal Cannula 4.00 03/19/17 08:00 97.4 79 20 134/67 99 03/19/17 04:00 97.4 79 20 104/61 95 03/19/17 03:59 98 Nasal Cannula 4.00 03/19/17 00:00 97.4 80 18 129/70 94 03/18/17 22:00 98 03/18/17 21:33 96 Nasal Cannula 4.00 I/O 03/18/17 03/18/17 03/18/17 03/19/17 03/19/17 03/19/17 07:00 15:00 23:00 07:00 15:00 23:00 Intake Total 1367 ml 751 ml 0 ml Output Total 275 ml 500 ml 700 ml Balance 1092 ml 251 ml 0 ml -700 ml Intake Oral 220 ml 0 ml IV Total 466 ml 432 ml Tube Feeding 681 ml 319 ml Output Urine Total 275 ml 500 ml 700 ml # Voids 0 # Bowel Movements 0 Result Diagram: 03/17/178 03/19/17 1659 Objective Remarks GENERAL: MBMN WM, NAD SKIN: Warm and dry. HEAD: Normocephalic. EYES: No scleral icterus. No injection or drainage. NECK: Supple, trachea midline. No JVD or lymphadenopathy. CARDIOVASCULAR: Regular rate and rhythm without murmurs, gallops, or rubs. RESPIRATORY: Breath sounds equal bilaterally. No accessory muscle use. GASTROINTESTINAL: Abdomen soft, non-tender, nondistended. MUSCULOSKELETAL: No cyanosis, or edema. BACK: Nontender without obvious deformity. No CVA tenderness. A/P Assessment and Plan COPD Lung Infilt Sq Cell ca Epiglotis DM Anxiety PLAN: DW pt and Cont Aerosol nebs IV ABX Supplement 02 SQ Lovenox Radiation treatments per Bimal Ruelas MD Mar 19, 2017 20:14
[2017-03-19] MEDS: ATORVASTATIN 40 MG TAB PO SCH (20:35)
[2017-03-19] MEDS: PANTOPRAZOLE SODIUM 40 MG VIAL IV PUSH SCH (20:35)
[2017-03-19] MEDS: traZODone HCL 100 MG TAB PO SCH (20:36)
[2017-03-19] MEDS: HYDROmorphone HCL PF 1 MG/ML VIAL IV PUSH PRN (20:39)
[2017-03-20] VITALS (10 sets, daily range): BP systolic 116–147; BP diastolic 63–83; PULSE 80–88; RESP 18–20; TEMP 97.4–97.9; O2SAT 93–97
[2017-03-20] MEDS: PIPERACIL-TAZO 4.5 GM PREMIX 100 ML IV SCH ×4 (00:27→17:00)
[2017-03-20] MEDS: HYDROmorphone HCL PF 1 MG/ML VIAL IV PUSH PRN ×5 (00:27→22:55)
[2017-03-20] MEDS: INSULIN NovoLIN REGULAR SUPPLEMENTAL SCALE SQ SCH ×4 (06:26→20:27)
[2017-03-20] MEDS: DILTIAZEM-CD 240 MG CAP ER PO SCH ×2 (09:24→20:29)
[2017-03-20] MEDS: predniSONE 20 MG TAB PO SCH ×2 (09:24→20:29)
[2017-03-20] MEDS: VENLAFAXINE HCL XR 75 MG CAP PO SCH (09:24)
[2017-03-20] MEDS: LORazepam 1 MG TAB PO PRN (09:24)
[2017-03-20] MEDS: RIVAROXABAN 20 MG TAB PO SCH (09:24)
[2017-03-20] MEDS: AMIODARONE 200 MG TAB PO SCH (09:24)
[2017-03-20] MEDS: INSULIN DETEMIR 100 UNITS/ML VIAL SQ SCH ×2 (09:24→20:27)
--- NOTE | 2017-03-20 10:06 | HHI.PR ---
Objective Vitals Vital Signs Date Time Temp Pulse Resp B/P Pulse Ox O2 Delivery O2 Flow Rate FiO2 03/20/17 08:54 97 Nasal Cannula 4.00 03/20/17 08:00 97.5 83 20 145/81 97 03/20/17 04:00 97.5 82 18 116/63 96 03/19/17 23:26 97.3 82 18 127/63 96 03/19/17 21:46 98 Nasal Cannula 4.00 03/19/17 20:13 97.8 82 18 141/86 98 03/19/17 20:05 79 03/19/17 16:00 97.8 79 20 154/72 99 03/19/17 12:00 97.3 79 20 146/67 98 I/O 03/19/17 03/19/17 03/19/17 03/20/17 03/20/17 03/20/17 07:00 15:00 23:00 07:00 15:00 23:00 Intake Total 0 ml 480 ml 200 ml Output Total 700 ml 250 ml 175 ml Balance 0 ml -700 ml 230 ml 25 ml Intake Oral 0 ml 480 ml 200 ml Output Urine Total 700 ml 250 ml 175 ml # Voids 0 # Bowel Movements 0 0 0 Result Diagram: 03/17/17 2228 03/19/17 1659 Date of Insertion: Mar 19, 2017 A/P Assessment and Plan Amy Ramon MD Mar 20, 2017 10:06 regular rhythm abdomen soft, nontender, PEG in place extremities-no edema motor 5/5 both UE LE- more extension movement, grossly no sensory deficits bladder distended- + penile swelling - silva placed- drained 700 c Date of Insertion: Mar 19, 2017 A/P Problem List: (1) Sepsis ICD Code: A41.9 Status: Acute (2) Mucus plugging of bronchi ICD Code: J98.09 Status: Acute (3) Pneumonia ICD Code: J18.9 Status: Acute (4) DM (diabetes mellitus) ICD Code: E11.9 Status: Chronic (5) A-fib ICD Code: I48.91 Status: Chronic (6) Nausea and vomiting ICD Code: R11.2 Status: Acute (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 Sepsis per criteria, WBC 12.8, HR 94, suspected pneumonia Pneumonia, likely aspirated pneumonia due to multiple vomiting episodes -Cont antibiotics as above -Repeat CXR now -Oxygen as needed, currently on 3L -continye on Zosyn Q6hr - clinically improving -Sputum culture blood cultures negative so far suction secretions Decrease in MS carrington ABG- lethargic Check CXR Images: chest xray shows Mild volume loss left hemithorax with left lower lobe collapse suspected with dense consolidative opacity seen and left mainstem bronchus air column cutoff noted. CTA shows Interval development of left lower lobe collapse secondary to endobronchial soft tissue density with intermixed air lucency having the appearance of mucous plugging and debris. Bilateral pleural effusions, consolidation and atelectasis. There is no evidence of pulmonary embolus. -pulmonology, ff- d/w Dr. Borden - no plan for bronchoscopy - Monitor 02 sats -ABG compensated respiratory acidosis -on po Prednisone Radiation treatment - Dr. Casas known to him - re: radiation treatments started Nausea and vomiting- resolved History of Gastroparesis -tolerating tube feedings- PEG -Zofran and Reglan PRN DM, chronic- elevated readings due to steroids -Accu checks AC/HS with SSI start long acting insulin 20 nits bid Afib, chronic- in SR -Monitor tele- in SR. On Xarelto- -Continue home cardizem, and amiodarone Severe back pain-on top of chronic on Morphine change to IV Dilaudid- decrease dose with decrease sensorium and monitor of respiratory status Fentanyl patch Depression/anxiety continue Meds. Ativan IV prn Acute urinary retention- silva placed 700 cc out- keep silva- 03/19 DVT prophylaxus: SCDs, On Xarelto- hold for possible procedure GI prophylaxis: Protonix transfer to floor Problem Qualifiers (1) DM (diabetes mellitus): Amy Jenkins MD Mar 20, 2017 10:06
--- NOTE | 2017-03-20 10:40 | HHI.PR ---
Subjective Remarks 11 am- back from XRT - tolerated well Objective Vitals Vital Signs Date Time Temp Pulse Resp B/P Pulse Ox O2 Delivery O2 Flow Rate FiO2 03/20/17 08:54 97 Nasal Cannula 4.00 03/20/17 08:00 97.5 83 20 145/81 97 03/20/17 04:00 97.5 82 18 116/63 96 03/19/17 23:26 97.3 82 18 127/63 96 03/19/17 21:46 98 Nasal Cannula 4.00 03/19/17 20:13 97.8 82 18 141/86 98 03/19/17 20:05 79 03/19/17 16:00 97.8 79 20 154/72 99 03/19/17 12:00 97.3 79 20 146/67 98 I/O 03/19/17 03/19/17 03/19/17 03/20/17 03/20/17 03/20/17 07:00 15:00 23:00 07:00 15:00 23:00 Intake Total 0 ml 480 ml 200 ml Output Total 700 ml 250 ml 175 ml Balance 0 ml -700 ml 230 ml 25 ml Intake Oral 0 ml 480 ml 200 ml Output Urine Total 700 ml 250 ml 175 ml # Voids 0 # Bowel Movements 0 0 0 Result Diagram: 03/17/17 2228 03/19/17 1659 Imaging Last Impressions Chest X-Ray 03/19/17 0000 Signed Impressions: Service Date/Time: February 13:14 - CONCLUSION: 1. Stable bibasilar patchiness consistent with atelectasis and/or pneumonia. Clinical correlation is recommended, 2. Small bilateral pleural effusions are stable. David Tafoya MD Thoracic Spine CT 03/14/17 0000 Signed Impressions: Service Date/Time: Tuesday, March 14, 2017 16:31 - CONCLUSION: 1. There is a moderate compression deformity of T5 not significantly changed from CT in January. Osteopenia. Bilateral pleural effusions. Giorgio Maldonado MD Lumbar Spine CT 03/14/17 0000 Signed Impressions: Service Date/Time: Tuesday, March 14, 2017 16:31 - CONCLUSION: 1. Mild compression deformity of L1 which appears chronic. Osteopenia. No acute fracture seen. 2. Mild posterior disc protrusion at L5-S1, slightly worse on the left side with encroachment on the left lateral recess. Giorgio Madlonado MD CT Angiography 03/13/17 0000 Signed Impressions: Service Date/Time: Monday, March 13, 2017 15:12 - CONCLUSION: Interval development of left lower lobe collapse secondary to endobronchial soft tissue density with intermixed air lucency having the appearance of mucous plugging and debris. Bilateral pleural effusions, consolidation and atelectasis. There is no evidence of pulmonary embolus. Earl Araujo MD Objective Remarks awake , anicteric lungs decreased breath sounds, + upper airway rhonchis regular rhythm abdomen soft, nontender, PEG in place extremities-no edema motor 5/5 both UE LE- more extension movement, grossly no sensory deficits + penile swelling - improved silva in place Urinary Catheter: Yes Assessment to: Continue Silva insert reason: Obstruction/Retention Date of Insertion: Mar 19, 2017 A/P Problem List: (1) Sepsis ICD Code: A41.9 Status: Acute (2) Mucus plugging of bronchi ICD Code: J98.09 Status: Acute (3) Pneumonia ICD Code: J18.9 Status: Acute (4) DM (diabetes mellitus) ICD Code: E11.9 Status: Chronic (5) A-fib ICD Code: I48.91 Status: Chronic (6) Nausea and vomiting ICD Code: R11.2 Status: Acute (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 due to shortness of breath and vomiting. Sepsis per criteria, WBC 12.8, HR 94, suspected pneumonia Pneumonia, likely aspirated pneumonia due to multiple vomiting episode -Repeat CXR now -Oxygen as needed, currently on 3L -continue on Zosyn Q6hr - clinically improving -Sputum culture blood cultures negative so far suction secretions Decrease in MS - limproved Images: chest xray shows Mild volume loss left hemithorax with left lower lobe collapse suspected with dense consolidative opacity seen and left mainstem bronchus air column cutoff noted. CTA shows Interval development of left lower lobe collapse secondary to endobronchial soft tissue density with intermixed air lucency having the appearance of mucous plugging and debris. Bilateral pleural effusions, consolidation and atelectasis. There is no evidence of pulmonary embolus. -pulmonology, ff- d/w Dr. Borden - no plan for bronchoscopy - Monitor 02 sats -ABG compensated respiratory acidosis -on po Prednisone Radiation treatment - Dr. Casas known to him - re: radiation treatments Nausea and vomiting- resolved History of Gastroparesis -tolerating tube feedings- PEG -Zofran and Reglan PRN DM, chronic- elevated readings due to steroids -Accu checks AC/HS with SSI started long acting insulin 20 nits bid Afib, chronic- in SR -Monitor tele- in SR. On Xarelto- -Continue home cardizem, and amiodarone Severe back pain-on top of chronic on Morphine now on IV Dilaudid- decrease dose with decrease sensorium and monitor of respiratory status Fentanyl patch Depression/anxiety continue Meds. Ativan IV prn Acute urinary retention- silva placed 03/19 700 cc out- keep silva DVT prophylaxus: SCDs, On Xarelto- hold for possible procedure GI prophylaxis: Protonix transfer to floor Problem Qualifiers (1) DM (diabetes mellitus): Amy Jenkins MD Mar 20, 2017 10:40 Amy Jenkins MD Mar 20, 2017 10:40
[2017-03-20] MEDS: fentaNYL 50 MCG/HR PATCH TOPICAL SCH (11:40)
[2017-03-20] MEDS: REMOVE OLD DURAGESIC (FENTANYL) PATCH T-DERMAL SCH (11:47)
[2017-03-20] MEDS: RESP: ALBUTEROL 2.5 MG/IPRATROPIUM 0.5 MG NEB (SCH) NEB ×3 (11:56→20:08)
--- NOTE | 2017-03-20 19:00 | HHI.PR ---
Subjective Remarks 76 YOWm with COPD,Sq cell ca epiglotis, was on XRT [employer] evaluated, on thickened liq Mild sob. Anxious at BS Had Radiation treatment today had Zacarias placed due to urinary retention tired, did't sleep well Objective Vital Signs Vital Signs Date Time Temp Pulse Resp B/P Pulse Ox O2 Delivery O2 Flow Rate FiO2 03/20/17 16:00 97.5 84 20 138/69 97 03/20/17 12:00 97.9 80 20 147/83 97 03/20/17 08:54 97 Nasal Cannula 4.00 03/20/17 08:00 97.5 83 20 145/81 97 03/20/17 04:00 97.5 82 18 116/63 96 03/19/17 23:26 97.3 82 18 127/63 96 03/19/17 21:46 98 Nasal Cannula 4.00 03/19/17 20:13 97.8 82 18 141/86 98 03/19/17 20:05 79 I/O 03/19/17 03/19/17 03/19/17 03/20/17 03/20/17 03/20/17 07:00 15:00 23:00 07:00 15:00 23:00 Intake Total 0 ml 480 ml 200 ml 1246 ml Output Total 700 ml 250 ml 175 ml 450 ml Balance 0 ml -700 ml 230 ml 25 ml 796 ml Intake Oral 0 ml 480 ml 200 ml 240 ml Tube Feeding 1006 ml Output Urine Total 700 ml 250 ml 175 ml 450 ml # Voids 0 # Bowel Movements 0 0 0 Result Diagram: 03/17/178 03/19/17 1229 Objective Remarks GENERAL: MBMN WM, NAD SKIN: Warm and dry. HEAD: Normocephalic. EYES: No scleral icterus. No injection or drainage. NECK: Supple, trachea midline. No JVD or lymphadenopathy. CARDIOVASCULAR: Regular rate and rhythm without murmurs, gallops, or rubs. RESPIRATORY: Breath sounds equal bilaterally. No accessory muscle use. GASTROINTESTINAL: Abdomen soft, non-tender, nondistended. MUSCULOSKELETAL: No cyanosis, or edema. BACK: Nontender without obvious deformity. No CVA tenderness. A/P Assessment and Plan COPD Lung Infilt Sq Cell ca Epiglotis DM Anxiety PLAN: DW pt and Cont Aerosol nebs IV ABX Supplement 02 SQ Lovenox Radiation treatments per Dr.Krochak Brito pulmaxwell, available prn over weekend. Bimal Borden MD Mar 20, 2017 19:00
[2017-03-20] MEDS: PANTOPRAZOLE SODIUM 40 MG VIAL IV PUSH SCH (20:28)
[2017-03-20] MEDS: traZODone HCL 100 MG TAB PO SCH (20:29)
[2017-03-20] MEDS: ATORVASTATIN 40 MG TAB PO SCH (20:29)
[2017-03-21] VITALS (9 sets, daily range): BP systolic 129–145; BP diastolic 66–78; PULSE 81–86; RESP 17–18; TEMP 97.3–98.4; O2SAT 93–97
[2017-03-21] MEDS: PIPERACIL-TAZO 4.5 GM PREMIX 100 ML IV SCH ×5 (00:09→23:23)
[2017-03-21] MEDS: HYDROmorphone HCL PF 1 MG/ML VIAL IV PUSH PRN ×5 (03:18→19:40)
[2017-03-21] MEDS: RESP: ALBUTEROL 2.5 MG/IPRATROPIUM 0.5 MG NEB (SCH) NEB ×4 (04:00→21:35)
[2017-03-21] MEDS: INSULIN NovoLIN REGULAR SUPPLEMENTAL SCALE SQ SCH ×4 (05:49→22:56)
[2017-03-21] MEDS: predniSONE 20 MG TAB PO SCH ×2 (09:13→20:48)
[2017-03-21] MEDS: VENLAFAXINE HCL XR 75 MG CAP PO SCH (09:13)
[2017-03-21] MEDS: AMIODARONE 200 MG TAB PO SCH (09:13)
[2017-03-21] MEDS: RIVAROXABAN 20 MG TAB PO SCH (09:14)
[2017-03-21] MEDS: INSULIN DETEMIR 100 UNITS/ML VIAL SQ SCH ×2 (09:14→22:55)
[2017-03-21] MEDS: DILTIAZEM-CD 240 MG CAP ER PO SCH ×2 (09:14→20:48)
--- NOTE | 2017-03-21 16:26 | HHI.PR ---
Subjective Remarks Patient laying in bed Still having short of breath, afebrile Positive cough Objective Vitals Vital Signs Date Time Temp Pulse Resp B/P Pulse Ox O2 Delivery O2 Flow Rate FiO2 03/21/17 12:00 97.8 84 17 145/78 95 03/21/17 08:37 94 Nasal Cannula 3.00 03/21/17 08:00 98.4 84 18 129/70 95 03/21/17 04:00 94 Nasal Cannula 3.00 03/21/17 03:30 97.4 86 18 136/66 97 03/20/17 23:15 97.4 88 18 128/68 93 03/20/17 20:17 97.4 84 18 128/75 94 03/20/17 20:09 94 Nasal Cannula 3.00 03/20/17 20:00 84 03/20/17 19:48 81 I/O 03/20/17 03/20/17 03/20/17 03/21/17 03/21/17 03/21/17 07:00 15:00 23:00 07:00 15:00 23:00 Intake Total 200 ml 1246 ml 360 ml 248 ml 935 ml Output Total 175 ml 450 ml 300 ml 300 ml 675 ml Balance 25 ml 796 ml 60 ml -52 ml 260 ml Intake Oral 200 ml 240 ml 360 ml 0 ml 240 ml IV Total 105 ml Tube Feeding 1006 ml 248 ml 590 ml Output Urine Total 175 ml 450 ml 300 ml 300 ml 675 ml # Bowel Movements 0 0 0 0 Result Diagram: 03/17/178 03/19/17 1659 Objective Remarks - GENERAL: This is a well-nourished, well-developed patient, in no apparent distress. SKIN: No rashes, warm and dry HEAD: Atraumatic. Normocephalic. EYES: Pupils equal round and reactive. Extraocular motions intact. No scleral icterus. ENT: Nose without bleeding, or drainage, Airway patent. NECK: Trachea midline. Supple CARDIOVASCULAR: Regular rate and rhythm without murmurs, gallops, or rubs. RESPIRATORY: Bibasilar crackles, mild wheezing bilaterally GASTROINTESTINAL: Abdomen soft, non-tender, nondistended. Positive bowel sounds MUSCULOSKELETAL: Extremities without clubbing, cyanosis, or edema. Pedal pulses appreciated NEUROLOGICAL: Awake and alert. Moves all extremity. 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 Sepsis per criteria, WBC 12.8, HR 94, mostly due to pneumonia Pneumonia, likely aspirated pneumonia due to multiple vomiting episode -Repeat CXR now -Oxygen as needed, currently on 3L -continue on Zosyn Q6hr - clinically improving -Sputum culture blood cultures negative so far suction secretions Decrease in MS - limproved Images: chest xray shows Mild volume loss left hemithorax with left lower lobe collapse suspected with dense consolidative opacity seen and left mainstem bronchus air column cutoff noted. CTA shows Interval development of left lower lobe collapse secondary to endobronchial soft tissue density with intermixed air lucency having the appearance of mucous plugging and debris. Bilateral pleural effusions, consolidation and atelectasis. There is no evidence of pulmonary embolus. -pulmonology, ff- d/w Dr. Borden - no plan for bronchoscopy - Monitor 02 sats -ABG compensated respiratory acidosis -on po Prednisone Radiation treatment - Dr. Casas known to him - re: radiation treatments Nausea and vomiting- resolved History of Gastroparesis -tolerating tube feedings- PEG -Zofran and Reglan PRN DM, chronic- elevated readings due to steroids -Accu checks AC/HS with SSI started long acting insulin 20 nits bid Afib, chronic- in SR -Monitor tele- in SR. On Xarelto- -Continue home cardizem, and amiodarone Severe back pain-on top of chronic on Morphine now on IV Dilaudid- decrease dose with decrease sensorium and monitor of respiratory status Fentanyl patch Depression/anxiety continue Meds. Ativan IV prn Acute urinary retention- silva placed 03/19 700 cc out- keep silva DVT prophylaxus: SCDs, On Xarelto- hold for possible procedure GI prophylaxis: Protonix Problem Qualifiers (1) DM (diabetes mellitus): Vicky Garcia MD Mar 21, 2017 16:26
--- NOTE | 2017-03-21 19:03 | HHI.PR ---
Subjective Remarks NO SOB AT REST alert Objective Vital Signs Date Time Temp Pulse Resp B/P Pulse Ox O2 Delivery O2 Flow Rate FiO2 03/21/17 16:00 97.7 84 18 141/74 96 03/21/17 12:00 97.8 84 17 145/78 95 03/21/17 08:37 94 Nasal Cannula 3.00 03/21/17 08:00 98.4 84 18 129/70 95 03/21/17 04:00 94 Nasal Cannula 3.00 03/21/17 03:30 97.4 86 18 136/66 97 03/20/17 23:15 97.4 88 18 128/68 93 03/20/17 20:17 97.4 84 18 128/75 94 03/20/17 20:09 94 Nasal Cannula 3.00 03/20/17 20:00 84 03/20/17 19:48 81 I/O 03/20/17 03/20/17 03/20/17 03/21/17 03/21/17 03/21/17 07:00 15:00 23:00 07:00 15:00 23:00 Intake Total 200 ml 1246 ml 360 ml 248 ml 935 ml Output Total 175 ml 450 ml 300 ml 300 ml 675 ml Balance 25 ml 796 ml 60 ml -52 ml 260 ml Intake Oral 200 ml 240 ml 360 ml 0 ml 240 ml IV Total 105 ml Tube Feeding 1006 ml 248 ml 590 ml Output Urine Total 175 ml 450 ml 300 ml 300 ml 675 ml # Bowel Movements 0 0 0 0 Result Diagram: 03/17/17 2228 03/19/17 1659 Objective Remarks GENERAL: SKIN: Warm and dry. HEAD: Atraumatic. Normocephalic. EYES: Pupils equal and round. No scleral icterus. No injection or drainage. ENT: No nasal bleeding or discharge. Mucous membranes pink and moist. NECK: Trachea midline. No JVD. CARDIOVASCULAR: Regular rate and rhythm. RESPIRATORY: No accessory muscle use. Clear to auscultation. Breath sounds equal bilaterally. GASTROINTESTINAL: Abdomen soft, non-tender, nondistended. Hepatic and splenic margins not palpable. MUSCULOSKELETAL: Extremities without clubbing, cyanosis, or edema. No obvious deformities. NEUROLOGICAL: Awake and alert. No obvious cranial nerve deficits. Motor grossly within normal limits. Five out of 5 muscle strength in the arms and legs. Normal speech. PSYCHIATRIC: Appropriate mood and affect; insight and judgment normal. Assessment and Plan Assessment and Plan RESPIRATORY FAILURE COPD LARYNGEAL CA ATLECTASIS VS PNA PLAN O2 ANTIBIOTICS PULM TOILET BRONCHOSCOPY IF NEEDED f\u cxray Dede Aguayo MD Mar 21, 2017 19:03
[2017-03-21] MEDS: SODIUM CHLORIDE 0.9% FLUSH 10 ML FLUSH IVF PRN (19:40)
[2017-03-21] MEDS: ATORVASTATIN 40 MG TAB PO SCH (20:48)
[2017-03-21] MEDS: traZODone HCL 100 MG TAB PO SCH (20:48)
[2017-03-21] MEDS: PANTOPRAZOLE SODIUM 40 MG VIAL IV PUSH SCH (20:49)
[2017-03-21] MEDS: LORazepam 2 MG/ML VIAL IV PRN (23:23)
[2017-03-22] VITALS (8 sets, daily range): BP systolic 117–132; BP diastolic 58–69; PULSE 80–107; RESP 16–22; TEMP 97.5–97.9; O2SAT 61–97
[2017-03-22] MEDS: HYDROmorphone HCL PF 1 MG/ML VIAL IV PUSH PRN ×6 (00:16→22:43)
[2017-03-22] MEDS: SENNOSIDES 8.6 MG TAB PO PRN ×2 (00:16→23:42)
[2017-03-22] MEDS: RESP: ALBUTEROL 2.5 MG/IPRATROPIUM 0.5 MG NEB (SCH) NEB ×4 (03:19→21:14)
[2017-03-22] MEDS: PIPERACIL-TAZO 4.5 GM PREMIX 100 ML IV SCH ×3 (05:26→18:06)
[2017-03-22] MEDS: SODIUM CHLORIDE 0.9% FLUSH 10 ML FLUSH IVF PRN (05:27)
[2017-03-22] MEDS: INSULIN NovoLIN REGULAR SUPPLEMENTAL SCALE SQ SCH ×4 (07:11→22:46)
[2017-03-22] MEDS: RIVAROXABAN 20 MG TAB PO SCH (08:54)
[2017-03-22] MEDS: DILTIAZEM-CD 240 MG CAP ER PO SCH ×2 (08:54→22:43)
[2017-03-22] MEDS: AMIODARONE 200 MG TAB PO SCH (08:54)
[2017-03-22] MEDS: INSULIN DETEMIR 100 UNITS/ML VIAL SQ SCH ×2 (08:55→22:45)
[2017-03-22] MEDS: VENLAFAXINE HCL XR 75 MG CAP PO SCH (08:55)
[2017-03-22] MEDS: predniSONE 20 MG TAB PO SCH ×2 (08:55→22:43)
--- NOTE | 2017-03-22 12:22 | HHI.PR ---
Subjective Remarks NO SOB AT REST alert Objective Vital Signs Date Time Temp Pulse Resp B/P Pulse Ox O2 Delivery O2 Flow Rate FiO2 03/22/17 12:00 97.6 84 18 132/69 61 03/22/17 08:20 Nasal Cannula 2.00 03/22/17 08:00 97.7 107 22 117/67 95 03/22/17 04:00 97.6 80 16 129/67 96 03/22/17 00:00 97.5 83 18 132/69 94 03/22/17 00:00 Nasal Cannula 2.00 Humidified 03/21/17 21:37 95 Nasal Cannula 2.00 03/21/17 20:10 82 03/21/17 20:00 97.3 81 18 135/73 93 03/21/17 20:00 Nasal Cannula 2.00 Humidified 03/21/17 16:00 97.7 84 18 141/74 96 I/O 03/21/17 03/21/17 03/21/17 03/22/17 03/22/17 03/22/17 07:00 15:00 23:00 07:00 15:00 23:00 Intake Total 248 ml 935 ml 637 ml 677 ml Output Total 300 ml 675 ml 400 ml 1400 ml Balance -52 ml 260 ml 237 ml -723 ml Intake Oral 0 ml 240 ml 240 ml 0 ml IV Total 105 ml 300 ml Tube Feeding 248 ml 590 ml 347 ml 327 ml Tube Irrigant 50 ml 50 ml Output Urine Total 300 ml 675 ml 400 ml 1400 ml # Bowel Movements 0 0 0 0 Result Diagram: 03/19/17 1659 Objective Remarks GENERAL: SKIN: Warm and dry. HEAD: Atraumatic. Normocephalic. EYES: Pupils equal and round. No scleral icterus. No injection or drainage. ENT: No nasal bleeding or discharge. Mucous membranes pink and moist. NECK: Trachea midline. No JVD. CARDIOVASCULAR: Regular rate and rhythm. RESPIRATORY: No accessory muscle use. Clear to auscultation. Breath sounds equal bilaterally. GASTROINTESTINAL: Abdomen soft, non-tender, nondistended. Hepatic and splenic margins not palpable. MUSCULOSKELETAL: Extremities without clubbing, cyanosis, or edema. No obvious deformities. NEUROLOGICAL: Awake and alert. No obvious cranial nerve deficits. Motor grossly within normal limits. Five out of 5 muscle strength in the arms and legs. Normal speech. PSYCHIATRIC: Appropriate mood and affect; insight and judgment normal. Assessment and Plan Assessment and Plan RESPIRATORY FAILURE COPD LARYNGEAL CA ATLECTASIS VS PNA PLAN O2 ANTIBIOTICS PULM TOILET BRONCHOSCOPY IF NEEDED f\u cxray Dede Aguayo MD Mar 22, 2017 12:22
--- NOTE | 2017-03-22 16:18 | HHI.PR ---
Subjective Remarks Stated breathing is better but he complained of up her abdomen distention and bloating, no fever, discussed with him and his Objective Vitals Vital Signs Date Time Temp Pulse Resp B/P Pulse Ox O2 Delivery O2 Flow Rate FiO2 03/22/17 12:00 97.6 84 18 132/69 61 03/22/17 08:20 Nasal Cannula 2.00 03/22/17 08:00 97.7 107 22 117/67 95 03/22/17 07:56 85 03/22/17 04:00 97.6 80 16 129/67 96 03/22/17 00:00 97.5 83 18 132/69 94 03/22/17 00:00 Nasal Cannula 2.00 Humidified 03/21/17 21:37 95 Nasal Cannula 2.00 03/21/17 20:10 82 03/21/17 20:00 97.3 81 18 135/73 93 03/21/17 20:00 Nasal Cannula 2.00 Humidified I/O 03/21/17 03/21/17 03/21/17 03/22/17 03/22/17 03/22/17 07:00 15:00 23:00 07:00 15:00 23:00 Intake Total 248 ml 935 ml 637 ml 677 ml Output Total 300 ml 675 ml 400 ml 1400 ml Balance -52 ml 260 ml 237 ml -723 ml Intake Oral 0 ml 240 ml 240 ml 0 ml IV Total 105 ml 300 ml Tube Feeding 248 ml 590 ml 347 ml 327 ml Tube Irrigant 50 ml 50 ml Output Urine Total 300 ml 675 ml 400 ml 1400 ml # Bowel Movements 0 0 0 0 Result Diagram: 03/19/17 7098 Objective Remarks - GENERAL: This is a well-nourished, well-developed patient, in no apparent distress. SKIN: No rashes, warm and dry HEAD: Atraumatic. Normocephalic. EYES: Pupils equal round and reactive. Extraocular motions intact. No scleral icterus. ENT: Nose without bleeding, or drainage, Airway patent. NECK: Trachea midline. Supple CARDIOVASCULAR: Regular rate and rhythm without murmurs, gallops, or rubs. RESPIRATORY: Bibasilar crackles, mild wheezing bilaterally GASTROINTESTINAL: Abdomen soft, mildly tender with tympanic to percussion on the transfer: Distribution. Positive bowel sounds MUSCULOSKELETAL: Extremities without clubbing, cyanosis, or edema. Pedal pulses appreciated NEUROLOGICAL: Awake and alert. Moves all extremity. 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 Sepsis per criteria, WBC 12.8, HR 94, mostly due to pneumonia Pneumonia, likely aspirated pneumonia due to multiple vomiting episode -Repeat CXR now -Oxygen as needed, currently on 3L -continue on Zosyn Q6hr - clinically improving -Sputum culture blood cultures negative so far suction secretions Decrease in MS - limproved Images: chest xray shows Mild volume loss left hemithorax with left lower lobe collapse suspected with dense consolidative opacity seen and left mainstem bronchus air column cutoff noted. CTA shows Interval development of left lower lobe collapse secondary to endobronchial soft tissue density with intermixed air lucency having the appearance of mucous plugging and debris. Bilateral pleural effusions, consolidation and atelectasis. There is no evidence of pulmonary embolus. -pulmonology, ff- d/w Dr. Borden - no plan for bronchoscopy - Monitor 02 sats -ABG compensated respiratory acidosis -on po Prednisone Radiation treatment - Dr. Krochak known to him - re: radiation treatments Nausea and vomiting- resolved History of Gastroparesis -tolerating tube feedings- PEG -Zofran and Reglan PRN DM, chronic- elevated readings due to steroids -Accu checks AC/HS with SSI started long acting insulin 20 nits bid Afib, chronic- in SR -Monitor tele- in SR. On Xarelto- -Continue home cardizem, and amiodarone Severe back pain-on top of chronic on Morphine on IV Dilaudid-will start tapering Fentanyl patch Depression/anxiety continue Meds. Ativan IV prn Acute urinary retention- silva placed 03/19 700 cc out- keep silva DVT prophylaxus: SCDs, On Xarelto- hold for possible procedure GI prophylaxis: Protonix Problem Qualifiers (1) DM (diabetes mellitus): Vicky Garcia MD Mar 22, 2017 16:18
[2017-03-22] MEDS: traZODone HCL 100 MG TAB PO SCH (22:43)
[2017-03-22] MEDS: ATORVASTATIN 40 MG TAB PO SCH (22:43)
[2017-03-22] MEDS: PANTOPRAZOLE SODIUM 40 MG VIAL IV PUSH SCH (22:44)
[2017-03-22] MEDS: LORazepam 2 MG/ML VIAL IV PRN (23:36)
[2017-03-22] MEDS: SIMETHICONE SUSP DROPS 40 MG/0.6 ML 30 ML BTL PO PRN (23:41)
[2017-03-23] VITALS (8 sets, daily range): BP systolic 129–144; BP diastolic 62–78; PULSE 80–95; RESP 16–22; TEMP 97.3–98.2; O2SAT 90–97
[2017-03-23] MEDS: PIPERACIL-TAZO 4.5 GM PREMIX 100 ML IV SCH ×4 (01:22→16:46)
[2017-03-23] MEDS: HYDROmorphone HCL PF 1 MG/ML VIAL IV PUSH PRN ×2 (03:09→06:50)
[2017-03-23] MEDS: INSULIN NovoLIN REGULAR SUPPLEMENTAL SCALE SQ SCH ×4 (05:51→21:00)
[2017-03-23] MEDS: RESP: ALBUTEROL 2.5 MG/IPRATROPIUM 0.5 MG NEB (SCH) NEB ×4 (06:10→20:38)
[2017-03-23] MEDS: SODIUM CHLORIDE 0.9% FLUSH 10 ML FLUSH IVF PRN (06:50)
[2017-03-23] MEDS: BISACODYL 10 MG SUPP RECTAL PRN (06:50)
[2017-03-23] MEDS: VENLAFAXINE HCL XR 75 MG CAP PO SCH (08:20)
[2017-03-23] MEDS: DILTIAZEM-CD 240 MG CAP ER PO SCH ×2 (08:20→22:04)
[2017-03-23] MEDS: RIVAROXABAN 20 MG TAB PO SCH (08:20)
[2017-03-23] MEDS: AMIODARONE 200 MG TAB PO SCH (08:20)
[2017-03-23] MEDS: SIMETHICONE SUSP DROPS 40 MG/0.6 ML 30 ML BTL PO PRN ×2 (08:20→22:05)
[2017-03-23] MEDS: predniSONE 20 MG TAB PO SCH ×2 (08:20→22:04)
[2017-03-23] MEDS: INSULIN DETEMIR 100 UNITS/ML VIAL SQ SCH ×2 (08:21→22:05)
[2017-03-23] MEDS: NYSTAT/DIPHENHY/LIDO MOUTHWASH (Adult) 120ML SWISH-SWAL SCH ×4 (08:28→21:00)
[2017-03-23] MEDS: LORazepam 1 MG TAB PO PRN (11:30)
[2017-03-23] MEDS: fentaNYL 50 MCG/HR PATCH TOPICAL SCH (13:32)
[2017-03-23] MEDS: SENNOSIDES 8.6 MG TAB PO PRN (13:32)
[2017-03-23] MEDS: REMOVE OLD DURAGESIC (FENTANYL) PATCH T-DERMAL SCH (13:32)
[2017-03-23] MEDS ORDERED: HYDROmorphone HCL PF 1 MG/ML VIAL IV PUSH PRN (15:30)
--- NOTE | 2017-03-23 18:07 | HHI.PR ---
Subjective Remarks Feeling tired, still having bloating and distention in his abdomen Discussed with him decreasing his narcotic, he agreed but not too happy Objective Vitals Vital Signs Date Time Temp Pulse Resp B/P Pulse Ox O2 Delivery O2 Flow Rate FiO2 03/23/17 16:00 98.2 80 16 144/78 95 03/23/17 12:00 97.3 84 16 133/78 95 03/23/17 09:39 92 Nasal Cannula 3.00 03/23/17 08:00 Nasal Cannula 3.00 03/23/17 08:00 85 03/23/17 08:00 97.9 85 18 129/64 95 03/23/17 04:15 97.3 95 19 130/62 96 03/23/17 04:15 Nasal Cannula 3.00 Humidified 03/23/17 00:15 97.5 87 22 140/67 97 03/23/17 00:15 Nasal Cannula 3.00 Humidified 03/22/17 21:16 95 Nasal Cannula 3.00 03/22/17 20:00 97.9 84 21 127/58 96 03/22/17 20:00 82 03/22/17 20:00 Nasal Cannula 3.00 Humidified I/O 03/22/17 03/22/17 03/22/17 03/23/17 03/23/17 03/23/17 07:00 15:00 23:00 07:00 15:00 23:00 Intake Total 677 ml 240 ml 794 ml 800 ml 240 ml Output Total 1400 ml 650 ml 200 ml 1000 ml 400 ml Balance -723 ml -410 ml 594 ml -200 ml -160 ml Intake Oral 0 ml 240 ml 500 ml 600 ml 240 ml IV Total 300 ml 200 ml Tube Feeding 327 ml 244 ml 0 ml Tube Irrigant 50 ml 50 ml Output Urine Total 1400 ml 650 ml 200 ml 1000 ml 400 ml # Bowel Movements 0 1 0 0 1 Result Diagram: 03/19/17 3129 Objective Remarks - GENERAL: This is a well-nourished, well-developed patient, in no apparent distress. SKIN: No rashes, warm and dry HEAD: Atraumatic. Normocephalic. EYES: Pupils equal round and reactive. Extraocular motions intact. No scleral icterus. ENT: Nose without bleeding, or drainage, Airway patent. NECK: Trachea midline. Supple CARDIOVASCULAR: Regular rate and rhythm without murmurs, gallops, or rubs. RESPIRATORY: Bibasilar crackles, mild wheezing bilaterally GASTROINTESTINAL: Abdomen soft, mildly tender with tympanic to percussion on the transfer: Distribution. Positive bowel sounds MUSCULOSKELETAL: Extremities without clubbing, cyanosis, or edema. Pedal pulses appreciated NEUROLOGICAL: Awake and alert. Moves all extremity. 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 due to shortness of breath and vomiting. Sepsis per criteria, WBC 12.8, HR 94, mostly due to pneumonia Pneumonia, likely aspirated pneumonia due to multiple vomiting episode -Repeat CXR now -Oxygen as needed, currently on 3L -continue on Zosyn Q6hr - clinically improving -Sputum culture blood cultures negative so far suction secretions Decrease in MS - limproved Images: chest xray shows Mild volume loss left hemithorax with left lower lobe collapse suspected with dense consolidative opacity seen and left mainstem bronchus air column cutoff noted. CTA shows Interval development of left lower lobe collapse secondary to endobronchial soft tissue density with intermixed air lucency having the appearance of mucous plugging and debris. Bilateral pleural effusions, consolidation and atelectasis. There is no evidence of pulmonary embolus. -pulmonology, ff- d/w Dr. Borden - no plan for bronchoscopy - Monitor 02 sats -ABG compensated respiratory acidosis -on po Prednisone Radiation treatment - Dr. Casas known to him - re: radiation treatments Nausea and vomiting- resolved History of Gastroparesis -tolerating tube feedings- PEG -Zofran and Reglan PRN DM, chronic- elevated readings due to steroids -Accu checks AC/HS with SSI started long acting insulin 20 nits bid Afib, chronic- in SR -Monitor tele- in SR. On Xarelto- -Continue home cardizem, and amiodarone Severe back pain-on top of chronic on Morphine on IV Dilaudid-will start tapering Fentanyl patch Depression/anxiety continue Meds. Ativan IV prn Acute urinary retention- silva placed 03/19 700 cc out- keep silva DVT prophylaxus: SCDs, On Xarelto- hold for possible procedure GI prophylaxis: Protonix Problem Qualifiers (1) DM (diabetes mellitus): Vicky Garcia MD Mar 23, 2017 18:07
--- NOTE | 2017-03-23 20:10 | HHI.PR ---
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 Anxious at BS Had Radiation treatment today Tired and sleeping Did't sleep last night Started TF due to poor intake Objective Vital Signs Vital Signs Date Time Temp Pulse Resp B/P Pulse Ox O2 Delivery O2 Flow Rate FiO2 03/23/17 16:00 98.2 80 16 144/78 95 03/23/17 12:00 97.3 84 16 133/78 95 03/23/17 09:39 92 Nasal Cannula 3.00 03/23/17 08:00 Nasal Cannula 3.00 03/23/17 08:00 85 03/23/17 08:00 97.9 85 18 129/64 95 03/23/17 04:15 97.3 95 19 130/62 96 03/23/17 04:15 Nasal Cannula 3.00 Humidified 03/23/17 00:15 97.5 87 22 140/67 97 03/23/17 00:15 Nasal Cannula 3.00 Humidified 03/22/17 21:16 95 Nasal Cannula 3.00 I/O 03/22/17 03/22/17 03/22/17 03/23/17 03/23/17 03/23/17 07:00 15:00 23:00 07:00 15:00 23:00 Intake Total 677 ml 240 ml 794 ml 800 ml 240 ml Output Total 1400 ml 650 ml 200 ml 1000 ml 400 ml Balance -723 ml -410 ml 594 ml -200 ml -160 ml Intake Oral 0 ml 240 ml 500 ml 600 ml 240 ml IV Total 300 ml 200 ml Tube Feeding 327 ml 244 ml 0 ml Tube Irrigant 50 ml 50 ml Output Urine Total 1400 ml 650 ml 200 ml 1000 ml 400 ml # Bowel Movements 0 1 0 0 1 Result Diagram: 03/19/17 1659 Objective Remarks GENERAL: MBMN WM, NAD SKIN: Warm and dry. HEAD: Normocephalic. EYES: No scleral icterus. No injection or drainage. NECK: Supple, trachea midline. No JVD or lymphadenopathy. CARDIOVASCULAR: Regular rate and rhythm without murmurs, gallops, or rubs. RESPIRATORY: Breath sounds equal bilaterally. No accessory muscle use. GASTROINTESTINAL: Abdomen soft, non-tender, nondistended. MUSCULOSKELETAL: No cyanosis, or edema. BACK: Nontender without obvious deformity. No CVA tenderness. A/P Assessment and Plan COPD Lung Infilt Sq Cell ca Epiglotis DM Anxiety PLAN: DW pt and Cont Aerosol nebs IV ABX Supplement 02 SQ Lovenox Radiation treatments per TF to supplement calories Bimal Borden MD Mar 23, 2017 20:10
[2017-03-23] MEDS: traZODone HCL 100 MG TAB PO SCH (22:04)
[2017-03-23] MEDS: ATORVASTATIN 40 MG TAB PO SCH (22:04)
[2017-03-23] MEDS: PANTOPRAZOLE SODIUM 40 MG VIAL IV PUSH SCH (22:06)
[2017-03-23] MEDS: HYDROmorphone HCL PF 2 MG/ML VIAL IV PUSH PRN (22:21)
[2017-03-24] VITALS (8 sets, daily range): BP systolic 122–135; BP diastolic 61–74; PULSE 74–86; RESP 16–21; TEMP 97.2–98.1; O2SAT 94–99
[2017-03-24] MEDS: PIPERACIL-TAZO 4.5 GM PREMIX 100 ML IV SCH ×5 (04:56→23:39)
[2017-03-24] MEDS: RESP: ALBUTEROL 2.5 MG/IPRATROPIUM 0.5 MG NEB (SCH) NEB ×2 (05:47→09:30)
[2017-03-24] MEDS: INSULIN NovoLIN REGULAR SUPPLEMENTAL SCALE SQ SCH ×4 (06:10→21:00)
[2017-03-24] MEDS: predniSONE 20 MG TAB PO SCH ×2 (08:20→21:31)
[2017-03-24] MEDS: VENLAFAXINE HCL XR 75 MG CAP PO SCH (08:20)
[2017-03-24] MEDS: RIVAROXABAN 20 MG TAB PO SCH (08:20)
[2017-03-24] MEDS: DILTIAZEM-CD 240 MG CAP ER PO SCH ×2 (08:21→21:31)
[2017-03-24] MEDS: AMIODARONE 200 MG TAB PO SCH (08:21)
[2017-03-24] MEDS: INSULIN DETEMIR 100 UNITS/ML VIAL SQ SCH ×2 (08:21→21:00)
[2017-03-24] MEDS: NYSTAT/DIPHENHY/LIDO MOUTHWASH (Adult) 120ML SWISH-SWAL SCH ×4 (08:21→21:00)
[2017-03-24] MEDS: HYDROmorphone HCL PF 2 MG/ML VIAL IV PUSH PRN ×3 (08:59→21:32)
--- NOTE | 2017-03-24 17:08 | HHI.PR ---
Subjective Remarks Feels little better in his abdomen, he moved out 3 times yesterday Sore in his throat Breathing is relatively stable Afebrile Objective Vitals Vital Signs Date Time Temp Pulse Resp B/P Pulse Ox O2 Delivery O2 Flow Rate FiO2 03/24/17 16:00 97.2 81 20 135/73 99 03/24/17 12:00 97.5 74 21 122/61 98 03/24/17 08:00 Nasal Cannula 3.00 03/24/17 08:00 84 03/24/17 08:00 98.1 86 19 126/70 94 03/24/17 04:00 97.9 85 18 124/66 95 03/24/17 00:00 97.3 79 16 132/70 97 03/23/17 20:39 95 Nasal Cannula 3.00 03/23/17 20:00 Nasal Cannula 3.00 03/23/17 20:00 97.4 84 18 134/72 90 I/O 03/23/17 03/23/17 03/23/17 03/24/17 03/24/17 03/24/17 07:00 15:00 23:00 07:00 15:00 23:00 Intake Total 800 ml 240 ml 234 ml 0 ml Output Total 1000 ml 400 ml 550 ml 1175 ml Balance -200 ml -160 ml -316 ml -1175 ml Intake Oral 600 ml 240 ml 0 ml 0 ml IV Total 200 ml Tube Feeding 0 ml 204 ml Other 30 ml Output Urine Total 1000 ml 400 ml 550 ml 1175 ml # Bowel Movements 0 1 1 0 Objective Remarks - GENERAL: This is a well-nourished, well-developed patient, in no apparent distress. SKIN: No rashes, warm and dry HEAD: Atraumatic. Normocephalic. EYES: Pupils equal round and reactive. Extraocular motions intact. No scleral icterus. ENT: Nose without bleeding, or drainage, Airway patent. NECK: Trachea midline. Supple CARDIOVASCULAR: Regular rate and rhythm without murmurs, gallops, or rubs. RESPIRATORY: Bibasilar crackles, mild wheezing bilaterally GASTROINTESTINAL: Abdomen soft, less distended in the abdomen. Positive bowel sounds MUSCULOSKELETAL: Extremities without clubbing, cyanosis, or edema. Pedal pulses appreciated NEUROLOGICAL: Awake and alert. Moves all extremity. 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 Sepsis per criteria, WBC 12.8, HR 94, mostly due to pneumonia Pneumonia, likely aspirated pneumonia due to multiple vomiting episode -Repeat CXR now -Oxygen as needed, currently on 3L -continue on Zosyn Q6hr - clinically improving -Sputum culture blood cultures negative so far suction secretions Decrease in MS - limproved Images: chest xray shows Mild volume loss left hemithorax with left lower lobe collapse suspected with dense consolidative opacity seen and left mainstem bronchus air column cutoff noted. CTA shows Interval development of left lower lobe collapse secondary to endobronchial soft tissue density with intermixed air lucency having the appearance of mucous plugging and debris. Bilateral pleural effusions, consolidation and atelectasis. There is no evidence of pulmonary embolus. -pulmonology, ff- d/w Dr. Borden - no plan for bronchoscopy - Monitor 02 sats -ABG compensated respiratory acidosis -on po Prednisone Radiation treatment - Dr. Casas known to him - re: radiation treatments Nausea and vomiting- resolved History of Gastroparesis -tolerating tube feedings- PEG -Zofran and Reglan PRN DM, chronic- elevated readings due to steroids -Accu checks AC/HS with SSI started long acting insulin 20 nits bid Afib, chronic- in SR -Monitor tele- in SR. On Xarelto- -Continue home cardizem, and amiodarone Severe back pain-on top of chronic on Morphine on IV Dilaudid-will start tapering Fentanyl patch Depression/anxiety continue Meds. Ativan IV prn Acute urinary retention- silva placed 03/19 700 cc out- keep silva DVT prophylaxus: SCDs, On Xarelto- hold for possible procedure GI prophylaxis: Protonix Problem Qualifiers (1) DM (diabetes mellitus): Vicky Garcia MD Mar 24, 2017 17:08
--- NOTE | 2017-03-24 18:51 | HHI.PR ---
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 Anxious at BS Had Radiation treatment today Feels better C/o sore throat Objective Vital Signs Vital Signs Date Time Temp Pulse Resp B/P Pulse Ox O2 Delivery O2 Flow Rate FiO2 03/24/17 17:44 99 Nasal Cannula 3.00 03/24/17 16:00 97.2 81 20 135/73 99 03/24/17 12:00 97.5 74 21 122/61 98 03/24/17 08:00 Nasal Cannula 3.00 03/24/17 08:00 84 03/24/17 08:00 98.1 86 19 126/70 94 03/24/17 04:00 97.9 85 18 124/66 95 03/24/17 00:00 97.3 79 16 132/70 97 03/23/17 20:39 95 Nasal Cannula 3.00 03/23/17 20:00 Nasal Cannula 3.00 03/23/17 20:00 97.4 84 18 134/72 90 I/O 03/23/17 03/23/17 03/23/17 03/24/17 03/24/17 03/24/17 07:00 15:00 23:00 07:00 15:00 23:00 Intake Total 800 ml 240 ml 234 ml 0 ml 360 ml Output Total 1000 ml 400 ml 550 ml 1175 ml 1350 ml Balance -200 ml -160 ml -316 ml -1175 ml -990 ml Intake Oral 600 ml 240 ml 0 ml 0 ml 360 ml IV Total 200 ml Tube Feeding 0 ml 204 ml Other 30 ml Output Urine Total 1000 ml 400 ml 550 ml 1175 ml 1350 ml # Bowel Movements 0 1 1 0 Objective Remarks GENERAL: MBMN WM, NAD SKIN: Warm and dry. HEAD: Normocephalic. EYES: No scleral icterus. No injection or drainage. NECK: Supple, trachea midline. No JVD or lymphadenopathy. CARDIOVASCULAR: Regular rate and rhythm without murmurs, gallops, or rubs. RESPIRATORY: Breath sounds equal bilaterally. No accessory muscle use. GASTROINTESTINAL: Abdomen soft, non-tender, nondistended. MUSCULOSKELETAL: No cyanosis, or edema. BACK: Nontender without obvious deformity. No CVA tenderness. A/P Assessment and Plan COPD Lung Infilt Sq Cell ca Epiglotis DM Anxiety PLAN: DW pt and Cont Aerosol nebs Supplement 02 SQ Lovenox Radiation treatments per TF to supplement calories Bimal Borden MD Mar 24, 2017 18:51
[2017-03-24] MEDS: PANTOPRAZOLE SODIUM 40 MG VIAL IV PUSH SCH (21:31)
[2017-03-24] MEDS: traZODone HCL 100 MG TAB PO SCH (21:31)
[2017-03-24] MEDS: ATORVASTATIN 40 MG TAB PO SCH (21:31)
[2017-03-25] VITALS (8 sets, daily range): BP systolic 124–152; BP diastolic 64–86; PULSE 75–86; RESP 16–20; TEMP 97.2–98.2; O2SAT 95–99
[2017-03-25] MEDS: LORazepam 2 MG/ML VIAL IV PRN ×3 (01:17→22:44)
[2017-03-25] MEDS: INSULIN NovoLIN REGULAR SUPPLEMENTAL SCALE SQ SCH ×4 (05:36→21:11)
[2017-03-25] MEDS: HYDROmorphone HCL PF 2 MG/ML VIAL IV PUSH PRN ×2 (05:36→12:05)
[2017-03-25] MEDS: PIPERACIL-TAZO 4.5 GM PREMIX 100 ML IV SCH ×2 (05:36→11:49)
[2017-03-25] MEDS: AMIODARONE 200 MG TAB PO SCH (08:04)
[2017-03-25] MEDS: VENLAFAXINE HCL XR 75 MG CAP PO SCH (08:04)
[2017-03-25] MEDS: predniSONE 20 MG TAB PO SCH ×2 (08:04→21:10)
[2017-03-25] MEDS: RIVAROXABAN 20 MG TAB PO SCH (08:04)
[2017-03-25] MEDS: DILTIAZEM-CD 240 MG CAP ER PO SCH ×2 (08:04→21:08)
[2017-03-25] MEDS: INSULIN DETEMIR 100 UNITS/ML VIAL SQ SCH ×2 (08:04→21:11)
[2017-03-25] MEDS: NYSTAT/DIPHENHY/LIDO MOUTHWASH (Adult) 120ML SWISH-SWAL SCH ×4 (09:00→21:11)
[2017-03-25] MEDS ORDERED: TAMS5CAP PO (13:25)
--- NOTE | 2017-03-25 13:33 | HHI.PR ---
Subjective Remarks Patient sleeping in bed, at the bedside I discussed with her he had his radiation session #12 out of 35 Patient still having fully I discussed with the nurse will take it out and do a voiding trial, his told me he used to be on tamsulosin for 6 years will resume that Afebrile no acute issue, the requested to decrease to proceed from 65-45 however the nurse told me he was tolerating the 65 well Objective Vitals Vital Signs Date Time Temp Pulse Resp B/P Pulse Ox O2 Delivery O2 Flow Rate FiO2 03/25/17 12:00 97.3 80 19 144/82 99 03/25/17 08:00 97.6 81 19 143/73 98 03/25/17 05:23 98.2 76 16 132/65 95 03/25/17 01:10 98.0 84 16 124/64 95 03/24/17 20:47 97.6 82 18 130/74 98 03/24/17 20:12 80 03/24/17 20:00 Nasal Cannula 2.00 03/24/17 17:44 99 Nasal Cannula 3.00 03/24/17 16:00 97.2 81 20 135/73 99 I/O 03/24/17 03/24/17 03/24/17 03/25/17 03/25/17 03/25/17 07:00 15:00 23:00 07:00 15:00 23:00 Intake Total 0 ml 827 ml 200 ml 705 ml Output Total 1175 ml 1350 ml 550 ml 850 ml Balance -1175 ml -523 ml -350 ml -145 ml Intake Oral 0 ml 360 ml 200 ml 240 ml IV Total 100 ml Tube Feeding 467 ml 265 ml Other 100 ml Output Urine Total 1175 ml 1350 ml 550 ml 850 ml # Bowel Movements 0 0 0 Objective Remarks - GENERAL: This is a well-nourished, well-developed patient, in no apparent distress. SKIN: No rashes, warm and dry HEAD: Atraumatic. Normocephalic. EYES: Pupils equal round and reactive. Extraocular motions intact. No scleral icterus. ENT: Nose without bleeding, or drainage, Airway patent. NECK: Trachea midline. Supple CARDIOVASCULAR: Regular rate and rhythm without murmurs, gallops, or rubs. RESPIRATORY: Fair entry less wheezes and crackles GASTROINTESTINAL: Abdomen soft, less distended in the abdomen. Positive bowel sounds MUSCULOSKELETAL: Extremities without clubbing, cyanosis, or edema. Pedal pulses appreciated NEUROLOGICAL: Awake and alert. Moves all extremity. 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 Assessment and Plan 03/21: Repeat BMP CBC in a.m., continue DuoNeb Solu-Medrol, iv antibiotic 03/22: Patient complain of upper abdomen distention and bloating, I explained to him and his need to back off on narcotic, order SIMETHICONE , continue Solu-Medrol DuoNeb iv antibiotic for pneumonia 03/23: Still having upper abdomen distention but he still able to pass flatus, will decrease Dilaudid and gradually switched to by mouth morphine 03/24: All 3 times yesterday, less abdominal discomfort today, sore throat mostly due to radiation therapy 03/25: We'll DC Zosyn, and monitor of antibiotic, will take out Silva in during voiding trial on bladder scan, start tamsulosin, discussed with the , will plan for discharge to SNF in a.m. to continue radiation treatment as an outpatient A/P: This is a 76-year-old male with a PMH of HTN, A. 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 Sepsis per criteria, WBC 12.8, HR 94, mostly due to pneumonia Pneumonia, likely aspirated pneumonia due to multiple vomiting episode -Repeat CXR now -Oxygen as needed, currently on 3L -continue on Zosyn Q6hr - clinically improving -Sputum culture blood cultures negative so far suction secretions Decrease in MS - limproved Images: chest xray shows Mild volume loss left hemithorax with left lower lobe collapse suspected with dense consolidative opacity seen and left mainstem bronchus air column cutoff noted. CTA shows Interval development of left lower lobe collapse secondary to endobronchial soft tissue density with intermixed air lucency having the appearance of mucous plugging and debris. Bilateral pleural effusions, consolidation and atelectasis. There is no evidence of pulmonary embolus. -pulmonology, ff- d/w Dr. Borden - no plan for bronchoscopy - Monitor 02 sats -ABG compensated respiratory acidosis -on po Prednisone Radiation treatment - Dr. Casas known to him - re: radiation treatments Nausea and vomiting- resolved History of Gastroparesis -tolerating tube feedings- PEG -Zofran and Reglan PRN DM, chronic- elevated readings due to steroids -Accu checks AC/HS with SSI started long acting insulin 20 nits bid Afib, chronic- in SR -Monitor tele- in SR. On Xarelto- -Continue home cardizem, and amiodarone Severe back pain-on top of chronic on Morphine on IV Dilaudid-will start tapering Fentanyl patch Depression/anxiety continue Meds. Ativan IV prn Acute urinary retention- silva placed 03/19 700 cc out- keep silva DVT prophylaxus: SCDs, On Xarelto- hold for possible procedure GI prophylaxis: Protonix Problem Qualifiers (1) DM (diabetes mellitus): Vicky Garcia MD Mar 25, 2017 13:33
--- NOTE | 2017-03-25 13:36 | HHI.DS ---
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 Patient was discharged 4 days ago from the hospital to a SNF. On Thursday he began to have nausea and vomited twice when he was getting his tube feeding. Per the she was not told of any residuals from his peg tube, and the abdominal xray at the SNF did not show an ileus. Patient states today he began to cough and have shortness of breath but no sputum production. On arrival patient had a temp of 99.8, HR 94, and WBC 12.8. Patient denies any chest pain or chills. He states he just wants water and feels dry. He does feel nauseated and Zofran does not seem to help. He was constipated on Thursday but was given a suppository and was able to have 2 small BMs. PE at Discharge - GENERAL: This is a well-nourished, well-developed patient, in no apparent distress. SKIN: No rashes, warm and dry HEAD: Atraumatic. Normocephalic. EYES: Pupils equal round and reactive. Extraocular motions intact. No scleral icterus. ENT: Nose without bleeding, or drainage, Airway patent. NECK: Trachea midline. Supple CARDIOVASCULAR: Regular rate and rhythm without murmurs, gallops, or rubs. RESPIRATORY: Fair entry less wheezes and crackles GASTROINTESTINAL: Abdomen soft, less distended in the abdomen. Positive bowel sounds MUSCULOSKELETAL: Extremities without clubbing, cyanosis, or edema. Pedal pulses appreciated NEUROLOGICAL: Awake and alert. Moves all extremity. Normal speech.no focal neurological deficit Hospital Course 76 years old male with past medical history of hypertension and A. 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 fib. Patient continue to have radiation therapy session, he also that looked acute urinary retention Zacarias catheter inserted, he was resumed on tamsulosin he will need to follow up with urology as an outpatient [id number] encounter performed with the patient on discharge day, as well as physical exam, summary of hospitalization course and postdischarge plan has been D/W the patient. D/W nurse D/W comp field case manager. Discharge medications reviewed and printed and signed, post discharge follow up visit with PCP and other specialist as well as Brief hospital course and discharge summary has been placed. Pt Condition on Discharge: Fair Discharge Disposition: Discharge to SNF Discharge Time: > 30 minutes Discharge Instructions DIET: Follow Instructions for: On Tube Feeding Speech Therapy-Diet Recommends: Honey Thickened Liquids, Other Activities you can perform: See Additionl Instruction Other Activity Instructions: per pt recs New Medications: Tamsulosin (Flomax) 0.4 Mg Cap 0.4 MG PO DAILY ur #30 CAP Continued Medications: Albuterol Powder Inh (Proair Respiclick Inh) 90 Mcg/Act Aerp 2 PUFF INH Q4HR PRN SHORTNESS OF BREATH #1 Ref 0 INHALER Amiodarone (Amiodarone) 200 Mg Tab 200 MG PO DAILY afib #30 TAB Atorvastatin (Atorvastatin) 40 Mg Tab 40 MG PO HS Cholesterol Management #30 Ref 0 TAB Cholecalciferol (Vitamin D3) 1,000 Unit Tab 2000 UNITS PO DAILY Nutritional Supplement #1 Ref 0 BOTTLE Clonazepam (Klonopin) 0.5 Mg Tab 0.5 MG PO Q12HR anxiety/depression #60 Ref 0 TAB Diltiazem CD 24 HR (Diltiazem CD 24 HR) 240 Mg Caper 240 MG PO DAILY #30 Ref 0 CAP Dronabinol (Marinol) 5 Mg Cap 5 MG PO BID poor appetite #62 Ref 0 CAP Fentanyl Patch 72 HR (Duragesic Patch 72 HR) 50 Mcg/Hr Patch 1 PATCH TD Q72H Pain Management #10 PATCH Insulin Aspart Inj (Novolog Inj) 1,000 Unit/10 Ml Vial 0 SQ ACHS Sliding Scale: 150-199=1 UNIT, 200-249=3 UNITS, 250-299=5 UNITS, 300- 347=7 UNITS, >349=9 UNITS Blood Sugar Management #10 Ref 0 ML Insulin Detemir Inj (Levemir Flextouch Pen Inj) 300 unit/3 ML Pen 20 UNITS SQ Q12HR NEB Blood Sugar Management #3 Ref 0 PEN Ipratropium-Albuterol Neb (Duoneb) 0.5-2.5 Mg/3 Ml Neb 1 AMPULE INH QID NEB Breathing #20 NEBULE Levothyroxine (Levothyroxine) 25 Mcg Tab 225 MCG PO DAILY Take 1 tablet (25mcg) with 200mcg tablet for a total dose of 225mcg Thyroid #30 Ref 0 TAB Morphine IR (Morphine IR) 15 Mg Tab 15 MG PO Q4H PRN PAIN SCALE 1 TO 5 #30 TAB Ondansetron (Zofran) 8 Mg Tab 8 MG PO Q8HR PRN NAUSEA OR VOMITING Ref 0 TAB Oyster Shell (Oyster Shell) 500 Mg Tab 500 MG PO DAILY Pantoprazole (Protonix) 40 Mg Tab 40 MG PO DAILY Reflux #30 Ref 0 TAB Rivaroxaban (Xarelto) 20 Mg Tab 20 MG PO DAILY Blood Clot Prevention #30 Ref 0 TAB Tiotropium Inh (Spiriva Handihaler) 18 Mcg Cap 18 MCG INH DAILY 1 capsule = 18 mcg COPD #30 Ref 0 CAP Trazodone (Trazodone) 100 Mg Tab 100 MG PO HS Control Depression #30 Ref 0 TAB Venlafaxine ER 24 HR (Effexor XR 24 HR) 75 Mg Cap 225 MG PO DAILY Depression Control #31 CAP Vicky Garcia MD Mar 25, 2017 13:36
[2017-03-25] MEDS: TAMSULOSIN HCL 0.4 MG CAP PO SCH (14:31)
[2017-03-25] MEDS: MORPHINE SULFATE 15 MG TAB PO PRN ×2 (16:52→21:10)
--- NOTE | 2017-03-25 19:46 | HHI.PR ---
Subjective Remarks 76 YOWm with COPD,Sq cell ca epiglotis, was on XRT Anxious at BS Had Radiation treatment today Feels better Objective Vital Signs Vital Signs Date Time Temp Pulse Resp B/P Pulse Ox O2 Delivery O2 Flow Rate FiO2 03/25/17 16:00 97.2 82 20 137/68 98 03/25/17 12:00 97.3 80 19 144/82 99 03/25/17 09:06 95 Nasal Cannula 2.00 03/25/17 08:00 75 03/25/17 08:00 96 Nasal Cannula 2.00 03/25/17 08:00 97.6 81 19 143/73 98 03/25/17 05:23 98.2 76 16 132/65 95 03/25/17 01:10 98.0 84 16 124/64 95 03/24/17 20:47 97.6 82 18 130/74 98 03/24/17 20:12 80 03/24/17 20:00 Nasal Cannula 2.00 I/O 03/24/17 03/24/17 03/24/17 03/25/17 03/25/17 03/25/17 07:00 15:00 23:00 07:00 15:00 23:00 Intake Total 0 ml 827 ml 200 ml 705 ml 640 ml Output Total 1175 ml 1350 ml 550 ml 850 ml 1200 ml Balance -1175 ml -523 ml -350 ml -145 ml -560 ml Intake Oral 0 ml 360 ml 200 ml 240 ml IV Total 100 ml Tube Feeding 467 ml 265 ml 400 ml Tube Irrigant 240 ml Other 100 ml Output Urine Total 1175 ml 1350 ml 550 ml 850 ml 1200 ml # Bowel Movements 0 0 0 Objective Remarks GENERAL: MBMN WM, NAD SKIN: Warm and dry. HEAD: Normocephalic. EYES: No scleral icterus. No injection or drainage. NECK: Supple, trachea midline. No JVD or lymphadenopathy. CARDIOVASCULAR: Regular rate and rhythm without murmurs, gallops, or rubs. RESPIRATORY: Breath sounds equal bilaterally. No accessory muscle use. GASTROINTESTINAL: Abdomen soft, non-tender, nondistended. MUSCULOSKELETAL: No cyanosis, or edema. BACK: Nontender without obvious deformity. No CVA tenderness. A/P Assessment and Plan COPD Lung Infilt Sq Cell ca Epiglotis DM Anxiety PLAN: DW pt and Cont Aerosol nebs Supplement 02 SQ Lovenox Radiation treatments per TF to supplement calories DC plans underway for [facility] Bimal Borden MD Mar 25, 2017 19:46
[2017-03-25] MEDS: traZODone HCL 100 MG TAB PO SCH (21:09)
[2017-03-25] MEDS: ATORVASTATIN 40 MG TAB PO SCH (21:09)
[2017-03-25] MEDS: PANTOPRAZOLE SODIUM 40 MG VIAL IV PUSH SCH (21:10)
[2017-03-26] VITALS (7 sets, daily range): BP systolic 114–154; BP diastolic 63–80; PULSE 78–88; RESP 18–20; TEMP 97.1–98; O2SAT 95–99
[2017-03-26] MEDS: MORPHINE SULFATE 15 MG TAB PO PRN ×3 (01:11→10:57)
[2017-03-26] MEDS: INSULIN NovoLIN REGULAR SUPPLEMENTAL SCALE SQ SCH ×4 (06:07→21:00)
[2017-03-26] MEDS: DILTIAZEM-CD 240 MG CAP ER PO SCH ×2 (07:48→22:03)
[2017-03-26] MEDS: TAMSULOSIN HCL 0.4 MG CAP PO SCH (07:48)
[2017-03-26] MEDS: predniSONE 20 MG TAB PO SCH ×2 (07:48→22:03)
[2017-03-26] MEDS: AMIODARONE 200 MG TAB PO SCH (07:48)
[2017-03-26] MEDS: NYSTAT/DIPHENHY/LIDO MOUTHWASH (Adult) 120ML SWISH-SWAL SCH ×4 (07:49→22:04)
[2017-03-26] MEDS: VENLAFAXINE HCL XR 75 MG CAP PO SCH (07:49)
[2017-03-26] MEDS: RIVAROXABAN 20 MG TAB PO SCH (07:49)
[2017-03-26] MEDS: INSULIN DETEMIR 100 UNITS/ML VIAL SQ SCH ×2 (07:49→22:03)
[2017-03-26] MEDS: LORazepam 2 MG/ML VIAL IV PRN (09:21)
--- NOTE | 2017-03-26 11:50 | HHI.PR ---
Subjective Remarks Mr. Santana laying in bed looks comfortable but tired He had radiation session today, his at the bedside He is urinating well after removing the Silva catheter however unfortunately the PEG tube got clocked up, I discussed with the nurse consulted IR for revision or replacement as needed. Patient is stable relatively to to be transferred to rehabilitation, it was planned to go to [facility] however today some problem with the [facility] insurance happened I discussed with the casework supervisor in length, other option is rehabilitation and also now which is can be inconvenient for the patient that he has to come to [facility] every day for the next month for his radiation therapy. Mrs. Martinez the casework supervisor will be working on it and patient can be transferred once this arrangement is non- Objective Vitals Vital Signs Date Time Temp Pulse Resp B/P Pulse Ox O2 Delivery O2 Flow Rate FiO2 03/26/17 08:00 97.1 79 18 114/63 98 03/26/17 04:00 03/26/17 02:30 84 03/26/17 00:00 97.6 85 20 144/80 99 03/25/17 22:45 Nasal Cannula 2.00 03/25/17 22:27 18 03/25/17 21:36 98 Nasal Cannula 2.00 03/25/17 20:00 97.8 86 20 152/86 98 03/25/17 16:00 97.2 82 20 137/68 98 03/25/17 12:00 97.3 80 19 144/82 99 I/O 03/25/17 03/25/17 03/25/17 03/26/17 03/26/17 03/26/17 07:00 15:00 23:00 07:00 15:00 23:00 Intake Total 705 ml 640 ml 240 ml Output Total 850 ml 1200 ml 600 ml 540 ml Balance -145 ml -560 ml -360 ml -540 ml Intake Oral 240 ml 240 ml IV Total 100 ml Tube Feeding 265 ml 400 ml Tube Irrigant 240 ml Other 100 ml Output Urine Total 850 ml 1200 ml 600 ml 540 ml # Bowel Movements 0 Objective Remarks - GENERAL: This is a well-nourished, well-developed patient, in no apparent distress. SKIN: No rashes, warm and dry HEAD: Atraumatic. Normocephalic. EYES: Pupils equal round and reactive. Extraocular motions intact. No scleral icterus. ENT: Nose without bleeding, or drainage, Airway patent. NECK: Trachea midline. Supple CARDIOVASCULAR: Regular rate and rhythm without murmurs, gallops, or rubs. RESPIRATORY: Slightly diminished air entry with some crackles bilaterally but less than before GASTROINTESTINAL: Abdomen soft, nontender minimally distended with tympanic percussion. Faint bowel sounds MUSCULOSKELETAL: Extremities without clubbing, cyanosis, or edema. Pedal pulses appreciated NEUROLOGICAL: Awake and alert. Moves all extremity. 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 Status: Chronic Assessment and Plan 03/21: Repeat BMP CBC in a.m., continue DuoNeb Solu-Medrol, iv antibiotic 03/22: Patient complain of upper abdomen distention and bloating, I explained to him and his need to back off on narcotic, order SIMETHICONE , continue Solu-Medrol DuoNeb iv antibiotic for pneumonia 03/23: Still having upper abdomen distention but he still able to pass flatus, will decrease Dilaudid and gradually switched to by mouth morphine 03/24: All 3 times yesterday, less abdominal discomfort today, sore throat mostly due to radiation therapy 03/25: We'll DC Zosyn, and monitor of antibiotic, will take out Silva in during voiding trial on bladder scan, start tamsulosin, discussed with the , will plan for discharge to SNF in a.m. to continue radiation treatment as an outpatient 03/26:Patient is stable relatively to to be transferred to rehabilitation, it was planned to go to [facility] however today some problem with the [place] insurance happened I discussed with the casework supervisor in length, other option is rehabilitation and also now which is can be inconvenient for the patient that he has to come to [place] every day for the next month for his radiation therapy. Mrs. Martinez the casework supervisor will be working on it and patient can be transferred once this arrangement is non- A/P: This is a 76-year-old male with a PMH of HTN, A. 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 Sepsis per criteria, WBC 12.8, HR 94, mostly due to pneumonia Pneumonia, likely aspirated pneumonia due to multiple vomiting episode -Repeat CXR now -Oxygen as needed, currently on 3L -continue on Zosyn Q6hr - clinically improving -Sputum culture blood cultures negative so far suction secretions Decrease in MS - limproved Images: chest xray shows Mild volume loss left hemithorax with left lower lobe collapse suspected with dense consolidative opacity seen and left mainstem bronchus air column cutoff noted. CTA shows Interval development of left lower lobe collapse secondary to endobronchial soft tissue density with intermixed air lucency having the appearance of mucous plugging and debris. Bilateral pleural effusions, consolidation and atelectasis. There is no evidence of pulmonary embolus. -pulmonology, ff- d/w Dr. Borden - no plan for bronchoscopy - Monitor 02 sats -ABG compensated respiratory acidosis -on po Prednisone Radiation treatment - Dr. Casas known to him - re: radiation treatments Nausea and vomiting- resolved History of Gastroparesis -tolerating tube feedings- PEG -Zofran and Reglan PRN DM, chronic- elevated readings due to steroids -Accu checks AC/HS with SSI started long acting insulin 20 nits bid Afib, chronic- in SR -Monitor tele- in SR. On Xarelto- -Continue home cardizem, and amiodarone Severe back pain-on top of chronic on Morphine on IV Dilaudid-will start tapering Fentanyl patch Depression/anxiety continue Meds. Ativan IV prn Acute urinary retention- silva placed 03/19 700 cc out- keep silva DVT prophylaxus: SCDs, On Xarelto- hold for possible procedure GI prophylaxis: Protonix Problem Qualifiers (1) DM (diabetes mellitus): Vicky Garcia MD Mar 26, 2017 11:50
[2017-03-26] MEDS: fentaNYL 50 MCG/HR PATCH TOPICAL SCH (13:00)
--- NOTE | 2017-03-26 15:23 | PD.RAD ---
Post Procedure Progress Note Pre Procedure Diagnosis: (1) Gastroparesis Post Procedure Diagnosis: (1) Gastroparesis Procedure Date: Mar 26, 2017 Supervising Radiologist: Phillip Wheat Proceduralist/Assist: Josi Bustamante RT(R), RT Hillary(R)() Anesthesia: Local Plan of Activity Patient to Unit: Nursing Unit Patient Condition: Fair See PACS Report for procedural detail/treatment Feeding Tube Gastrostomy Exchange Phillip Wheat MD Mar 26, 2017 15:23
[2017-03-26] MEDS ORDERED: IOHEXOL 350 MG/ML 50 ML BTL (for RAD DIAG) G-TUBE ONE (15:34)
[2017-03-26] MEDS ORDERED: LORazepam 2 MG/ML VIAL IV ONE (15:40)
--- NOTE | 2017-03-26 15:56 | RADRPT ---
EXAM DATE/TIME: 03/26/2017 15:10 [facility] COMPARISON: No previous studies available for comparison. INDICATIONS : Patient is in need of an exchange of exisitng gastrostomy tube due to clogging. MEDICAL HISTORY : History of gastroparesis, HTN, AFIB, COPD, squamous cell cancer of the epiglottis, DM. SURGICAL HISTORY : History of tonsillectomy, gastrostomy tube placement, cardiac ablation, hernia repair, cholecystectom y. ENCOUNTER: Initial ACUITY: 2 weeks PAIN SCORE: 3/10 LOCATION: abdomen FLUORO TIME: 0.4 minutes IMAGE SERIES: 1 CONTRAST: 5 cc Omnipaque (iohexol) 350 MEDICATION(S): 1.) 2 mg lorazepam (Ativan) IV DEVICE(S): 1.) 20 Telugu gastrostomy tube PROCEDURE : 1. Fluoroscopically guided gastrostomy tube exchange. 2. Conscious sedation with continuous EKG and oximetry monitoring. The risks, benefits and alternatives to the procedure were explained and verbal and written consent w as obtained. The site was prepped in sterile fashion. Full sterile technique was used, including ca p, mask, sterile gloves and gown and a large sterile sheet. Hand hygiene and 2% chlorhexidine and/or betadine/alcohol prep was utilized per protocol for cutaneous antisepsis. The skin and subcutaneous tissues were infiltrated with local anesthetic solution. The existing tube was accessed using sterile technique. The tube was removed over a 0.035 wire. A ne w tube was advanced over the wire and positioned into the stomach without difficulty. The balloon wa s inflated with appropriate volume of saline. Injection of positive contrast demonstrates good posit ion of the gastrostomy tube. Conscious sedation was performed with the prescribed dosages and duration as above in the presence of an independent trained radiology nurse to assist in the monitoring of the patient. EKG and oximetry remained stable throughout the procedure. The patient tolerated the procedure well and there were n o complications. The patient was sent to post anesthesia recovery in stable condition. CONCLUSION: Uncomplicated gastrostomy tube exchange as above. Phillip Wheat MD on March 26, 2017 at 15:54 Board Certified Radiologist. This report was verified electronically.
[2017-03-26] MEDS: SIMETHICONE SUSP DROPS 40 MG/0.6 ML 30 ML BTL PO PRN (17:24)
[2017-03-26] MEDS: SENNOSIDES 8.6 MG TAB PO PRN (17:24)
--- NOTE | 2017-03-26 19:59 | HHI.PR ---
Subjective Remarks 76 YOWm with COPD,Sq cell ca epiglotis, was on XRT Anxious at BS Had Radiation treatment today Feels better had PEG tube replaced Objective Vital Signs Vital Signs Date Time Temp Pulse Resp B/P Pulse Ox O2 Delivery O2 Flow Rate FiO2 03/26/17 16:00 97.2 78 20 145/75 97 03/26/17 12:00 98.0 85 20 154/67 95 03/26/17 10:12 Nasal Cannula 03/26/17 08:00 88 03/26/17 08:00 96 Nasal Cannula 2.00 03/26/17 08:00 97.1 79 18 114/63 98 03/26/17 04:00 03/26/17 02:30 84 03/26/17 00:00 97.6 85 20 144/80 99 03/25/17 22:45 Nasal Cannula 2.00 03/25/17 22:27 18 03/25/17 21:36 98 Nasal Cannula 2.00 03/25/17 20:00 97.8 86 20 152/86 98 I/O 03/25/17 03/25/17 03/25/17 03/26/17 03/26/17 03/26/17 07:00 15:00 23:00 07:00 15:00 23:00 Intake Total 705 ml 640 ml 240 ml Output Total 850 ml 1200 ml 600 ml 540 ml 300 ml Balance -145 ml -560 ml -360 ml -540 ml -300 ml Intake Oral 240 ml 240 ml IV Total 100 ml Tube Feeding 265 ml 400 ml Tube Irrigant 240 ml Other 100 ml Output Urine Total 850 ml 1200 ml 600 ml 540 ml 300 ml # Bowel Movements 0 Objective Remarks GENERAL: MBMN WM, NAD SKIN: Warm and dry. HEAD: Normocephalic. EYES: No scleral icterus. No injection or drainage. NECK: Supple, trachea midline. No JVD or lymphadenopathy. CARDIOVASCULAR: Regular rate and rhythm without murmurs, gallops, or rubs. RESPIRATORY: Breath sounds equal bilaterally. No accessory muscle use. GASTROINTESTINAL: Abdomen soft, non-tender, nondistended. MUSCULOSKELETAL: No cyanosis, or edema. BACK: Nontender without obvious deformity. No CVA tenderness. A/P Assessment and Plan COPD Lung Infilt Sq Cell ca Epiglotis DM Anxiety PLAN: DW pt and Cont Aerosol nebs Supplement 02 SQ Lovenox Radiation treatments per TF to supplement calories Bimal Borden MD Mar 26, 2017 19:59
[2017-03-26] MEDS: REMOVE OLD DURAGESIC (FENTANYL) PATCH T-DERMAL SCH (21:00)
[2017-03-26] MEDS: traZODone HCL 100 MG TAB PO SCH (22:03)
[2017-03-26] MEDS: ATORVASTATIN 40 MG TAB PO SCH (22:03)
[2017-03-26] MEDS: PANTOPRAZOLE SODIUM 40 MG VIAL IV PUSH SCH (22:11)
[2017-03-27] VITALS (16 sets, daily range): BP systolic 114–163; BP diastolic 58–79; PULSE 84–96; RESP 18–29; TEMP 97.7–98.7; O2SAT 91–97
[2017-03-27 00:57] LABS: BLOOD GAS BASE EXCESS 8.2 mmol/L (-2-2); BLOOD GAS CARBOXYHEMOGLOBIN 1.6 % (0-4); BLOOD GAS HCO3 33 mmol/L (22-26); BLOOD GAS METHEMOGLOBIN 0.8 % (0-2); BLOOD GAS O2 HGB SATURATION 92 % (90-100); BLOOD GAS OXYGEN CONTENT 17.6 Vol % (12.0-20.0); BLOOD GAS PCO2 56 mmHg (38-42); BLOOD GAS PO2 70 mmHg (61-120); BLOOD GAS TOTAL HGB 13.7 G/DL (12.0-16.0); TEMP CORR TO 98.6
[2017-03-27 00:58] LABS: CRITICAL VALUE YES; DRAW SITE LT RADIAL; FIO2 50 %; NUMBER OF ARTERIAL PUNCTURES 1; OXYGEN DEVICE Venti Mask; STAT YES
--- NOTE | 2017-03-27 01:11 | RADRPT ---
EXAM DATE/TIME: 03/27/2017 00:42 [facility] COMPARISON: CHEST SINGLE AP, March 19, 2017, 13:14. INDICATIONS : Shortness of breath and cough. MEDICAL HISTORY : Carcinoma, lung. SURGICAL HISTORY : None. ENCOUNTER: Subsequent ACUITY: 3 weeks PAIN SCORE: Non-responsive. LOCATION: chest FINDINGS: Worsening consolidation left mid and upper lung as well as the left base. There is fairly stable mild consolidation in the right midlung. Small, bilateral pleural effusions are noted, both probably not significantly changed. No pneumothorax seen. Heart size stable, within normal limits. CONCLUSION: Worsening/developing consolidation on the left as above. Mild consolidation on the right stable. No s ignificant change small, bilateral pleural effusions. Otis Espitia MD on March 27, 2017 at 1:09 Board Certified Radiologist. This report was verified electronically.
[2017-03-27] MEDS: RESP: ALBUTEROL 2.5 MG/IPRATROPIUM 0.5 MG NEB (PRN) NEB ×2 (02:05→03:39)
--- NOTE | 2017-03-27 02:41 | HHI.PR ---
Addendum to Inpatient Note Addendum Reason: Additional Documentation Additional Information We were called by patient's nurse that patient was at around 00 30 a.m. because patient was somewhat lethargic after Ativan was given. Chart reviewed. Patient was given Ativan 2 mg IV at around 3 PM which was almost 10 hours ago. This Ativan was given preprocedure for his G-tube exchange. Since we knew his case from prior notes, we immediately came to see the patient. Patient is awake, alert, oriented. However does have audible congestion. On exam, his lungs are quite clear but with significant upper airway congestion and gurgling sounds. He was receiving tube feeding at 45 cc per hour. His O2 sat was around 90% on 4 L nasal cannula. We had obtained stat ABG while he was on Ventimask that the nurse has placed previously. This did show CO2 retention though compensated. Therefore advised nurse to decrease FiO2. Nurse had also suctioned patient at that time. Heart rate was regular, no murmur appreciated. Abdomen was noted to be quite distended with suprapubic tenderness. No calf asymmetry noted. Impression: Hypoxemic and hypercapnic respiratory failuremultifactorial. Mainly from aspiration. Avoid high flow oxygen. Aspiration pneumonia Abdominal distentionwas prior reports of vomiting and episodes per chart. Suprapubic tendernessrule out urinary retention. Plan: Suctioned patient q1hr. Advised to give nebulizer treatments. Bladder scan status. This revealed more than 600 cc of urine. Therefore advised to put Zacarias catheter. Repeat ABG in an hour. While respiratory therapist was trying to suction patient a second time, patient had witnessed episode of large amount of vomiting per staff members. I had gone to see patient again at this point and he does look to be still awake and alert and answering questions. However he clearly has audible congestion and was using respiratory accessory muscles. His O2 sat remained to be around 90% on 4 L nasal cannula. We'll transfer patient to ICU. Will need thorough suctioning in ICU and her close monitoring. Obtain KUB stat. Zacarias catheter . Will discuss with heating engineer quality control inspector heading for transfer of care Jelani Keith MD Mar 27, 2017 02:41
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
[2017-03-27] MEDS ORDERED: METOCLOPRAMIDE HCL 10 MG/2 ML VIAL IV PUSH ONE (03:45)
[2017-03-27 04:31] LABS: ALKALINE PHOSPHATASE 82 U/L (45-117); ALT (GPT) 34 U/L (12-78); ANION GAP 6 MEQ/L (5-15); AST (GOT) 25 U/L (15-37); BICARBONATE 32.8 MEQ/L (21.0-32.0); BLOOD UREA NITROGEN 22 MG/DL (7-18); CHLORIDE 96 MEQ/L (98-107); GLOMERULAR FILTRATION RATE 166 ML/MIN (>89); MAGNESIUM 1.9 MG/DL (1.5-2.5); POTASSIUM 4.1 MEQ/L (3.5-5.1); SODIUM (NA) 135 MEQ/L (136-145); TOTAL BILIRUBIN ADULT 0.3 MG/DL (0.2-1.0)
--- NOTE | 2017-03-27 04:31 | RADRPT ---
EXAM DATE/TIME: 03/27/2017 03:19 [facility] COMPARISON: ABDOMEN UPRIGHT ONLY, February 27, 2017, 21:05. INDICATIONS : Distention. MEDICAL HISTORY : Gastroparesis. Diabetes mellitus type II. SURGICAL HISTORY : Cholecystectomy. Gastrostomy tube placement. Hernia repair. ENCOUNTER: Initial ACUITY: 1 day PAIN SCORE: Non-responsive. LOCATION: abdomen, all quadrants. FINDINGS: Chronically retained contrast seen within the colon. The proximal colon is stool filled and distended to the level of the distal transverse, worse than before. Cecum measures at least 15 cm across. The descending and sigmoid colon are nondistended. CONCLUSION: Very distended proximal colon, appears to be worse. Possible point of obstruction in the region of th e splenic flexure. Chronically retained contrast in the colon likely an underlying diffuse ileus as w ell. Otis Espitia MD on March 27, 2017 at 4:27 Board Certified Radiologist. This report was verified electronically.
[2017-03-27] MEDS: DEXTROSE 50% IN WATER 50 ML VIAL(D50) IV PUSH PRN ×3 (04:44→15:22)
[2017-03-27] MEDS: INSULIN NovoLIN REGULAR SUPPLEMENTAL SCALE SQ SCH ×4 (06:15→20:51)
[2017-03-27] MEDS ORDERED: POTASSIUM CHLOR 20 MEQ PREMIX 100 ML IV PRN ×2 (07:30)
[2017-03-27] MEDS ORDERED: SODIUM PHOSPHATE INJ 30 MMOL in SODIUM CHLOR 0.9% 250 ML INJ 240 ML IV PRN (07:30)
[2017-03-27] MEDS ORDERED: POTASSIUM CHLOR 40 MEQ PREMIX 100 ML IV PRN ×2 (07:30)
[2017-03-27] MEDS ORDERED: MAGNESIUM OXIDE 400 MG TAB PO PRN (07:30)
[2017-03-27] MEDS ORDERED: POTASSIUM PHOSPHATE MONOBASIC 500 MG TAB PO/TUBE PRN (07:30)
[2017-03-27] MEDS ORDERED: MAGNESIUM SULFATE INJ 4 GM in SODIUM CHLORIDE 0.9% INJ 92 ML IV PRN (07:30)
[2017-03-27] MEDS ORDERED: MAGNESIUM SULFATE INJ 2 GM in SODIUM CHLORIDE 0.9% INJ 96 ML IV PRN (07:30)
[2017-03-27] MEDS ORDERED: POTASSIUM PHOSPHATE MONOBASIC 500 MG TAB PO PRN (07:30)
[2017-03-27] MEDS ORDERED: POTASSIUM CHLORIDE 25 MEQ EFFERVESCENT TAB PO PRN (07:30)
[2017-03-27 07:55] LABS: BLOOD GAS BASE EXCESS 8.3 mmol/L (-2-2); BLOOD GAS CARBOXYHEMOGLOBIN 1.8 % (0-4); BLOOD GAS HCO3 33 mmol/L (22-26); BLOOD GAS METHEMOGLOBIN 0.8 % (0-2); BLOOD GAS O2 HGB SATURATION 88 % (90-100); BLOOD GAS OXYGEN CONTENT 16.6 Vol % (12.0-20.0); BLOOD GAS PCO2 48 mmHg (38-42); BLOOD GAS PO2 56 mmHg (61-120); BLOOD GAS TOTAL HGB 13.4 G/DL (12.0-16.0); CRITICAL VALUE YES; LITER FLOW 2 L/M; OXYGEN DEVICE NASAL CANNULA; TEMP CORR TO 98.6
[2017-03-27 07:56] LABS: DRAW SITE RT RADIAL; NUMBER OF ARTERIAL PUNCTURES 2; ULNAR PULSE PRESENT
[2017-03-27 07:58] LABS: STAT YES
[2017-03-27] MEDS ORDERED: DIATRIZOATE MEGLUM/DIATRIZOATE SOD 9 ML CUP PO ONE (08:00)
[2017-03-27] MEDS: TAMSULOSIN HCL 0.4 MG CAP PO SCH (08:49)
[2017-03-27] MEDS: predniSONE 20 MG TAB PO SCH ×2 (08:49→21:16)
[2017-03-27] MEDS: AMIODARONE 200 MG TAB PO SCH (08:49)
[2017-03-27] MEDS: RIVAROXABAN 20 MG TAB PO SCH (08:50)
[2017-03-27] MEDS: DILTIAZEM-CD 240 MG CAP ER PO SCH (08:50)
[2017-03-27] MEDS: PIPERACIL-TAZO 4.5 GM PREMIX 100 ML IV SCH ×3 (08:50→21:15)
[2017-03-27] MEDS: NYSTAT/DIPHENHY/LIDO MOUTHWASH (Adult) 120ML SWISH-SWAL SCH ×5 (09:00→21:16)
[2017-03-27] MEDS: VENLAFAXINE HCL XR 75 MG CAP PO SCH (09:00)
[2017-03-27] MEDS ORDERED: DEXT 5%-NACL 0.45% 1000 ML INJ 1,000 ML IV SCH (10:00)
[2017-03-27 11:08] LABS: AUTOMATED NEUTROPHIL # 14.2 TH/MM3 (1.8-7.7); BASOPHIL % 0.2 % (0.0-2.0); EOSINOPHIL % 0.2 % (0.0-4.0); HEMATOCRIT 39.1 % (39.0-51.0); LYMPH % 1.1 % (9.0-44.0); LYMPHOCYTE # 0.2 TH/MM3 (1.0-4.8); MEAN CELL VOLUME 84.6 FL (80.0-100.0); MEAN CORPUSCULAR HEMOGLOBIN 28.3 PG (27.0-34.0); MEAN CORPUSCULAR HGB CONC 33.5 % (32.0-36.0); MONO % 3.6 % (0.0-8.0); NEUT % 94.9 % (16.0-70.0); PLATELET COUNT 188 TH/MM3 (150-450); RED BLOOD COUNT 4.62 MIL/MM3 (4.50-5.90)
[2017-03-27 11:09] LABS: HEMO FLAGS AUTO DIFF
--- NOTE | 2017-03-27 11:14 | PD.CONS ---
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 Casas, and dysphagia with recurrent aspiration pneumonia. We saw him back in January of this year for dysphagia, abnormal weight loss and he had a gastrostomy tube placed by IR at that time. He was discharged to a rehab center and returned to the ER on (03/13/17) for difficluty breathing. He has been on the medical floor being treated for sepsis, aspiration pneumonia, nausea, vomiting, and his chronic medical problems. His gastrostomy tube became lodged and this was exchanged by IR on (03/26/17). The patient is currently extremely lethargic and unable to provide any history. His reports that he has been very lethargic with a cough since he returned from having his procedure yesterday. Overnight, he began having more difficulty breathing and he was transferred to the intensive care unit last night as a Halicat for respiratory distress after vomiting and a concern for aspiration, possible need for intubation. He was noted to have abdominal distention and a a KUB was done (03/27/17)---> Very distended proximal colon, appears to be worse. Possible point of obstruction in the region of the splenic flexure. Chronically retained contrast in the colon likely an underlying diffuse ileus as well. Cecum 15 cm. GI was consulted for further evaluation. Of note, his last EGD was (09/09/16) and this revealed a short stricture at the gastroesophageal junction, bile gastritis in the gastric antrum and gastric body, pyloric stenosis, status post Botox injection 100 units, 25 units in every quadrant, retroflexion revealed no abnormalities. He also had an EGD/Colonoscopy (09/25/15) ----> mild antral gastropathy, otherwise normal, sessile polyp 5-9 mm in the cecum, 2 sessile polyps in the ascending colon. Pathology revealed duodenal mucosa without significant pathologic change, villous architecture within normal limits, gastric mucosa with reactive gastroplasty accompanied by regenerative epithelial changes and lamina propria fibrosis, negative for intestinal metaplasia or dysplasia, H. Pylori organisms are not identified by HP immunostain. (Isabella BurgessP) PFSH Past Medical History Squamous Cell Ca of Epiglottis s/p PEG, patient has had 5 radiation treatments so far Atrial fibrillation on Xarelto status post ablation Arthritis COPD Diabetes mellitus Gastroparesis Gastroesophageal reflux disease Hypothyroidism Pneumonia Pleural effusion Major depressive disorder Congestive heart failure Hypertension Past Surgical History Tonsillectomy Hiatal Hernia Repair Cholecystectomy Left shoulder repair with metal plate EPS with ablation Right leg surgery Gastrostomy tube placement (Isabella Burgess) Coded Allergies: Flagyl (Verified Allergy, Severe, 03/13/17) Floxcin (Verified Allergy, Severe, 03/13/17) Latex (Verified Allergy, Severe, 03/13/17) Adhesives (Verified Allergy, Mild, 03/13/17) *MDRO Multi-Drug Resistant Organism (Verified Adverse Reaction, Unknown, ) 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/17 Medications Allergies Coded Allergies Type Severity Reaction Last Updated Verified Flagyl Allergy Severe 03/13/17 Yes Floxcin Allergy Severe 03/13/17 Yes Latex Allergy Severe 03/13/17 Yes Adhesives Allergy Mild 03/13/17 Yes *MDRO Multi-Drug Resistant Organism Adverse Reaction Unknown 03/13/17 Yes Active Scripts Medications Dose Route/Sig Days Date Category Dose Instructions Diltiazem CD 24 HR 240 Mg Caper 240 Mg PO DAILY 03/13/17 Reported Levemir Flextouch Pen Inj (Insulin Detemir) 300 unit/3 ML Pen 20 Units SQ Q12HR NEB 03/09/17 Rx Trazodone (Trazodone HCl) 100 Mg Tab 100 Mg PO HS 03/09/17 Rx Fluconazole 100 Mg Tab 200 Mg PO Q24H 03/06/17 Rx Ativan (Lorazepam) 1 Mg Tab 1 Mg PO DAILY 03/06/17 Rx call center director for radiation therapy. Give 30 min prior. Levaquin (Levofloxacin) 750 Mg Tab 750 Mg PO DAILY 03/06/17 Rx Klonopin (Clonazepam) 0.5 Mg Tab 0.5 Mg PO Q12HR 03/06/17 Rx Morphine IR (Morphine Sulfate) 15 Mg Tab 15 Mg PO Q4H PRN 03/06/17 Rx Duragesic Patch 72 HR (Fentanyl) 50 Mcg/Hr Patch 1 Patch TD Q72H 03/06/17 Rx Florastor (Saccharomyces Boulardii) 250 Mg Cap 250 Mg PO BID 10 02/19/17 Reported Novolog Inj (Insulin Aspart) 1,000 Unit/10 Ml Vial 0 SQ ACHS 02/19/17 Reported Sliding Scale: 150-199=1 UNIT, 200-249=3 UNITS, 250 -299=5 UNITS, 300-347=7 UNITS, >349=9 UNITS Levothyroxine (Levothyroxine Sodium) 25 Mcg Tab 225 Mcg PO DAILY 02/19/17 Reported Take 1 tablet (25mcg) with 200mcg tablet for a total dose of 225mcg Zofran (Ondansetron HCl) 8 Mg Tab 8 Mg PO Q8HR PRN 02/19/17 Reported Vitamin D3 (Cholecalciferol) 1,000 Unit Tab 2,000 Units PO DAILY 02/19/17 Reported Oyster Shell 500 Mg Tab 500 Mg PO DAILY 02/19/17 Reported Marinol (Dronabinol) 5 Mg Cap 5 Mg PO BID 02/10/17 Rx Effexor XR 24 HR (Venlafaxine HCl) 75 Mg Cap 225 Mg PO DAILY 02/10/17 Rx Amiodarone (Amiodarone HCl) 200 Mg Tab 200 Mg PO DAILY 02/10/17 Rx Duoneb (Ipratropium-Albuterol Neb) 0.5-2.5 Mg/3 Ml Neb 1 Ampule INH QID NEB 01/28/17 Rx Senna (Sennosides) 8.8 Mg/5 Ml Syp 15 Mg PO BID 01/11/17 Reported Zantac (Ranitidine HCl) 150 Mg Tab 150 Mg PO BID 01/10/17 Rx Protonix (Pantoprazole Sodium) 40 Mg Tab 40 Mg PO DAILY 01/10/17 Rx Atorvastatin (Atorvastatin Calcium) 40 Mg Tab 40 Mg PO HS 01/10/17 Rx Spiriva Handihaler (Tiotropium Inh) 18 Mcg Cap 18 Mcg INH DAILY 01/10/17 Rx 1 capsule = 18 mcg Xarelto (Rivaroxaban) 20 Mg Tab 20 Mg PO DAILY 01/10/17 Rx Multivitamin Adults (Multiple Vitamins W/ Minerals) 1 Tab 1 Tab PO DAILY 01/02/17 Reported Docusate Sodium 100 Mg Cap 100 Mg PO BID 01/02/17 Reported Proair Respiclick Inh (Albuterol Sulfate) 90 Mcg/Act Aerp 2 Puff INH Q4HR PRN 11/17/16 Reported Family History Mother of heart failure at unkown age Father of complications of what sounds like polycythemia, PAD . Social History Smokes 54 pack year smoking hx, - December Alcohol: Denies Illicit Drugs: Denies (sIabella Burgess) Review of Systems ROS Unable to obtain (Isabella Burgess) GI Exam Vitals I&O Vital Signs Date Time Temp Pulse Resp B/P Pulse Ox O2 Delivery O2 Flow Rate FiO2 03/27/17 06:00 93 03/27/17 04:00 92 03/27/17 04:00 96 Nasal Cannula 3.00 03/27/17 04:00 92 29 136/79 96 03/27/17 03:40 94 Nasal Cannula 3.00 03/27/17 03:15 97.8 90 27 141/68 91 03/27/17 02:17 91 20 163/74 92 03/27/17 00:00 97.7 90 18 135/58 93 03/26/17 22:40 95 Nasal Cannula 3.00 03/26/17 22:05 92 Nasal Cannula 3.00 03/26/17 20:00 97.4 84 20 145/76 95 03/26/17 16:00 97.2 78 20 145/75 97 03/26/17 12:00 98.0 85 20 154/67 95 I/O 03/26/17 03/26/17 03/26/17 03/27/17 03/27/17 03/27/17 07:00 15:00 23:00 07:00 15:00 23:00 Intake Total 0 ml 100 ml Output Total 540 ml 300 ml 250 ml 1150 ml Balance -540 ml -300 ml -250 ml -1050 ml Intake Oral 0 ml 0 ml IV Total 100 ml Output Urine Total 540 ml 300 ml 250 ml 350 ml Gastric Drainage Total 800 ml Bladder Scan Volume Amount 627 ml # Bowel Movements 0 0 Imaging Last Impressions Chest X-Ray 03/27/17 0000 Signed Impressions: Service Date/Time: Monday, March 27, 2017 00:42 - CONCLUSION: Worsening/developing consolidation on the left as above. Mild consolidation on the right stable. No significant change small, bilateral pleural effusions. Otis Espitia MD Abdomen X-Ray 03/27/17 0000 Signed Impressions: Service Date/Time: Monday, March 27, 2017 03:19 - CONCLUSION: Very distended proximal colon, appears to be worse. Possible point of obstruction in the region of the splenic flexure. Chronically retained contrast in the colon likely an underlying diffuse ileus as well. Otis Espitia MD Catheter Change 03/26/17 0000 Signed Impressions: Service Date/Time: February 15:10 - CONCLUSION: Uncomplicated gastrostomy tube exchange as above. Phillip Wheat MD Thoracic Spine CT 03/14/17 0000 Signed Impressions: Service Date/Time: Tuesday, March 14, 2017 16:31 - CONCLUSION: 1. There is a moderate compression deformity of T5 not significantly changed from CT in January. Osteopenia. Bilateral pleural effusions. Giorgio Maldonado MD Lumbar Spine CT 03/14/17 0000 Signed Impressions: Service Date/Time: Tuesday, March 14, 2017 16:31 - CONCLUSION: 1. Mild compression deformity of L1 which appears chronic. Osteopenia. No acute fracture seen. 2. Mild posterior disc protrusion at L5-S1, slightly worse on the left side with encroachment on the left lateral recess. Giorgio Maldonado MD CT Angiography 03/13/17 0000 Signed Impressions: Service Date/Time: Monday, March 13, 2017 15:12 - CONCLUSION: Interval development of left lower lobe collapse secondary to endobronchial soft tissue density with intermixed air lucency having the appearance of mucous plugging and debris. Bilateral pleural effusions, consolidation and atelectasis. There is no evidence of pulmonary embolus. Earl Araujo MD Laboratory Test 03/27/17 03/27/17 03/27/17 03/27/17 00:45 02:38 04:35 06:58 Blood Gas Puncture Site LT RADIAL RT RADIAL Blood Gas Patient Temperature 98.6 98.6 Blood Gas HCO3 33 mmol/L 33 mmol/L Blood Gas Base Excess 8.2 mmol/L 8.3 mmol/L Blood Gas Oxygen Saturation 92 % 88 % Arterial Blood pH 7.39 7.45 Arterial Blood Partial 56 mmHg 48 mmHg Pressure CO2 Arterial Blood Partial 70 mmHg 56 mmHg Pressure O2 Arterial Blood Oxygen Content 17.6 Vol % 16.6 Vol % Arterial Blood 1.6 % 1.8 % Carboxyhemoglobin Arterial Blood Methemoglobin 0.8 % 0.8 % Blood Gas Hemoglobin 13.7 G/DL 13.4 G/DL Oxygen Delivery Device Venti Mask NASAL CANNULA Blood Gas Inspired Oxygen 50 % Sodium Level 135 MEQ/L Potassium Level 4.1 MEQ/L Chloride Level 96 MEQ/L Carbon Dioxide Level 32.8 MEQ/L Anion Gap 6 MEQ/L Blood Urea Nitrogen 22 MG/DL Creatinine 0.49 MG/DL Estimat Glomerular Filtration 166 ML/MIN Rate Random Glucose 38 MG/DL Lactic Acid Level 1.6 mmol/L Calcium Level 8.7 MG/DL Phosphorus Level 2.0 MG/DL Magnesium Level 1.9 MG/DL Total Bilirubin 0.3 MG/DL Aspartate Amino Transf 25 U/L (AST/SGOT) Alanine Aminotransferase 34 U/L (ALT/SGPT) Alkaline Phosphatase 82 U/L Total Protein 5.5 GM/DL Albumin 2.4 GM/DL Lipase 109 U/L B-Type Natriuretic Peptide 12 PG/ML Blood Gas Liter Flow 2 L/M Date/Time Procedure Status Source Growth 03/27/17 04:35 Aerobic Blood Culture Received Blood Peripheral Pending 03/27/17 04:35 Anaerobic Blood Culture Received Blood Peripheral Pending Physical Examination HEENT: Normocephalic; atraumatic; no jaundice. CHEST: Course breath sounds CARDIAC: Regular rate and rhythm ABDOMEN: Abdomen with significant distention. bowel sounds are hypoactive. G- tube site without redness or swelling EXTREMITIES: No clubbing, cyanosis, or edema. SKIN: Normal; no rash; no jaundice. PHYSICAL METEOROLOGIST: Lethargic, somnolent. (Isabella Burgess) Assessment and Plan Plan ASSESSMENT: - Colonic ileus with possible obstruction and dilated Cecum. KUB (03/27/17)---> Very distended proximal colon, appears to be worse. Possible point of obstruction in the region of the splenic flexure. Chronically retained contrast in the colon likely an underlying diffuse ileus as well. Cecum [address] scan abdomen and pelvis- going at 12 noon. Will await these results and get GS evaluation. PEG to LIWS. - Resp. Insufficiency, Aspiration PNA,COPD. Chest X-Ray (03/27/17)---> Worsening /developing consolidation on the left as above. Mild consolidation on the right stable. No significant change small, bilateral pleural effusions. Zosyn. CCM following. - Leukocytosis. WBC 15.0. Zosyn. - Dysphagia, Has Gastrostomy tube (exchanged 03/26 by IR). Was taking some liquids and TF via g tube. - Gastroparesis, GERD. PPI. - Atrial fibrillation. 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 Rdx per Dr. Casas, had #13/35. - Arthritis, Diabetes mellitus, Hypothyroidism, Major depressive disorder, Congestive heart failure, HTN per primary PLAN: - NPO - G tube to LIWS - Stat CT scan abdomen and pelvis with oral contrast - GS evaluation - Monitor labs - Further recommendations to follow based on results of CT - Pt seen and examined by Dr. Tapia and myself and this note is written on his behalf (Isabella Burgess) Physician Comments Patient seen and examined Agree with above Continue with current supportive care Monitor labs Await CT of the abdomen (Seng Tapia MD) Isabella Burgess Mar 27, 2017 11:14 Seng Tapia MD Mar 27, 2017 23:38
[2017-03-27 11:37] LABS: BANDS 44 % (0-6); METAMYELOCYTES 2 % (0-1); POLYS (SEG NEUTROPHILS) 47 % (16-70); WBC DIFF SAMPLE 100
[2017-03-27 11:39] LABS: PLATELET ESTIMATE SMEAR NORMAL (NORMAL); PLATELET MORPHOLOGY NORMAL (NORMAL); SCAN/DIFF FINAL DIFF MANUAL; TOXIC GRANULATION 1+ (NORMAL)
[2017-03-27] MEDS ORDERED: IOHEXOL 350 MG/ML 10 ML VIAL (for RAD DIAG) IV ONE (12:36)
--- NOTE | 2017-03-27 12:51 | RADRPT ---
EXAM DATE/TIME: 03/27/2017 12:25 [facility] COMPARISON: CT ABDOMEN & PELVIS W CONTRAST, January 06, 2016, 8:33. INDICATIONS : Patient has history of vomiting, possible ileus. IV CONTRAST: 60 cc Omnipaque 350 (iohexol) IV Injection Site: Lt Forearm Lot: Exp Date: Lot: Exp Date: ORAL CONTRAST: Prescribed oral contrast ingested. RADIATION DOSE: 12.16 CTDIvol (mGy) MEDICAL HISTORY : Cardiovascular disease. Gastroparesis. Hypertension.hiatal hernia,reflux,throat cancer,diabetes SURGICAL HISTORY : Cholecystectomy. ENCOUNTER: Initial ACUITY: 1 day PAIN SCALE: 4/10 LOCATION: Bilateral lower quadrant TECHNIQUE: Volumetric scanning of the abdomen and pelvis was performed. Using automated exposure control and ad justment of the mA and/or kV according to patient size, radiation dose was kept as low as reasonably achievable to obtain optimal diagnostic quality images. FINDINGS: LOWER LUNGS: There are small bilateral pleural effusions right greater than left with consolidation in the left lo wer lobe with multiple air bronchograms. There is more patchy infiltrate in the right lung.LIVER: Homogeneous density without lesion. There is no dilation of the biliary tree. The patient is status post cholecystectomy. SPLEEN: Normal size without lesion. PANCREAS: Within normal limits. KIDNEYS: Normal in size and shape. There is no mass or hydronephrosis. Multiple nonobstructing left renal raphael culi are again noted. ADRENAL GLANDS: Within normal limits. VASCULAR: There is no aortic aneurysm. BOWEL/MESENTERY: A gastrostomy tube is present in the mid stomach. There is mild distention of portions of the colon w ith large amount of barium present throughout the colon. There is no free air or fluid. ABDOMINAL WALL: Within normal limits. RETROPERITONEUM: There is no lymphadenopathy. BLADDER: No wall thickening or mass. A Zacarias catheter is present. REPRODUCTIVE: Within normal limits. INGUINAL: There is no lymphadenopathy or hernia. MUSCULOSKELETAL: Within normal limits for patient age. CONCLUSION: 1. Dilatation of portions of the colon with large amount of barium present. This is most consistent w ith an ileus. 2. Multiple nonobstructing left renal calculi again noted. 3. Infiltrate in both lung bases as well as small effusions. 4. Gastrostomy tube in place. Burke Charles MD on March 27, 2017 at 12:39 Board Certified Radiologist. This report was verified electronically.
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
[2017-03-27] MEDS: MORPHINE SULFATE 15 MG TAB PO PRN ×2 (16:54→22:46)
--- NOTE | 2017-03-27 18:55 | HHI.PR ---
Subjective Remarks 76 YOWm with COPD,Sq cell ca epiglotis, was on XRT Anxious at BS Was tr to ISC PEG tube suctioned,800 cc BS low Objective Vital Signs Vital Signs Date Time Temp Pulse Resp B/P Pulse Ox O2 Delivery O2 Flow Rate FiO2 03/27/17 18:00 90 03/27/17 17:54 17 03/27/17 16:00 90 03/27/17 16:00 98.3 94 23 140/73 95 03/27/17 14:00 94 03/27/17 13:23 95 Nasal Cannula 2.00 03/27/17 12:00 98.1 92 22 114/58 95 03/27/17 12:00 90 03/27/17 10:00 90 03/27/17 08:00 96 03/27/17 08:00 96 Nasal Cannula 2.00 03/27/17 08:00 98.1 96 26 142/69 93 03/27/17 06:00 93 03/27/17 04:00 92 03/27/17 04:00 96 Nasal Cannula 3.00 03/27/17 04:00 92 29 136/79 96 03/27/17 03:40 94 Nasal Cannula 3.00 03/27/17 03:15 97.8 90 27 141/68 91 03/27/17 02:17 91 20 163/74 92 03/27/17 00:00 97.7 90 18 135/58 93 03/26/17 22:40 95 Nasal Cannula 3.00 03/26/17 22:05 92 Nasal Cannula 3.00 03/26/17 20:00 97.4 84 20 145/76 95 I/O 03/26/17 03/26/17 03/26/17 03/27/17 03/27/17 03/27/17 07:00 15:00 23:00 07:00 15:00 23:00 Intake Total 0 ml 100 ml 464 ml Output Total 540 ml 300 ml 250 ml 1150 ml 650 ml Balance -540 ml -300 ml -250 ml -1050 ml -186 ml Intake Oral 0 ml 0 ml 0 ml IV Total 100 ml 464 ml Output Urine Total 540 ml 300 ml 250 ml 350 ml 450 ml Gastric Drainage Total 800 ml 200 ml Bladder Scan Volume Amount 627 ml # Bowel Movements 0 0 0 Result Diagram: 03/27/17 1048 03/27/17 0238 Objective Remarks GENERAL: MBMN WM, NAD SKIN: Warm and dry. HEAD: Normocephalic. EYES: No scleral icterus. No injection or drainage. NECK: Supple, trachea midline. No JVD or lymphadenopathy. CARDIOVASCULAR: Regular rate and rhythm without murmurs, gallops, or rubs. RESPIRATORY: Breath sounds equal bilaterally. No accessory muscle use. GASTROINTESTINAL: Abdomen soft, non-tender, nondistended. MUSCULOSKELETAL: No cyanosis, or edema. BACK: Nontender without obvious deformity. No CVA tenderness. A/P Assessment and Plan COPD Lung Infilt Sq Cell ca Epiglotis DM Anxiety PLAN: DW pt and Cont Aerosol nebs Supplement 02 SQ Lovenox IVF Monitor Bimal Figueroa MD Mar 27, 2017 18:55
[2017-03-27] MEDS: PANTOPRAZOLE SODIUM 40 MG VIAL IV PUSH SCH (21:15)
[2017-03-27] MEDS: ATORVASTATIN 40 MG TAB PO SCH (21:16)
[2017-03-27] MEDS: SODIUM CHLORIDE 23.4% INJ 77 MEQ in DEXTROSE 10% INJ 1,000 ML IV SCH (21:28)
[2017-03-28] VITALS (12 sets, daily range): BP systolic 115–138; BP diastolic 60–76; PULSE 65–86; RESP 20–25; TEMP 97.4–98.2; O2SAT 95–100
[2017-03-28] MEDS: DILTIAZEM HCL 60 MG TAB PO SCH ×4 (00:18→17:40)
[2017-03-28] MEDS: DEXTROSE 50% IN WATER 50 ML VIAL(D50) IV PUSH PRN (00:18)
[2017-03-28] MEDS: PIPERACIL-TAZO 4.5 GM PREMIX 100 ML IV SCH ×4 (01:26→21:26)
[2017-03-28 04:59] LABS: AUTOMATED NEUTROPHIL # 13.5 TH/MM3 (1.8-7.7); BASOPHIL % 0.1 % (0.0-2.0); EOSINOPHIL % 0.1 % (0.0-4.0); HEMATOCRIT 34.2 % (39.0-51.0); HEMO FLAGS DIFF FINAL; LYMPH % 1.1 % (9.0-44.0); LYMPHOCYTE # 0.2 TH/MM3 (1.0-4.8); MEAN CELL VOLUME 84.6 FL (80.0-100.0); MEAN CORPUSCULAR HGB CONC 34.3 % (32.0-36.0); MONO % 1.9 % (0.0-8.0); NEUT % 96.8 % (16.0-70.0); PLATELET COUNT 173 TH/MM3 (150-450); RED BLOOD COUNT 4.04 MIL/MM3 (4.50-5.90); RED CELL DISTRIBUTION WIDTH 21.3 % (11.6-17.2)
[2017-03-28 05:08] LABS: ALT (GPT) 29 U/L (12-78); ANION GAP 7 MEQ/L (5-15); AST (GOT) 22 U/L (15-37); BICARBONATE 31.9 MEQ/L (21.0-32.0); BLOOD UREA NITROGEN 15 MG/DL (7-18); CHLORIDE 95 MEQ/L (98-107); GLOMERULAR FILTRATION RATE 170 ML/MIN (>89); POTASSIUM 3.6 MEQ/L (3.5-5.1); SODIUM (NA) 134 MEQ/L (136-145)
[2017-03-28 05:11] LABS: ALKALINE PHOSPHATASE 72 U/L (45-117); TOTAL BILIRUBIN ADULT 0.5 MG/DL (0.2-1.0)
--- NOTE | 2017-03-28 06:33 | RADRPT ---
EXAM DATE/TIME: 03/28/2017 04:46 [facility] COMPARISON: CHEST SINGLE AP, March 27, 2017, 0:42. INDICATIONS : Shortness of breath, possible pulmonary disease. MEDICAL HISTORY : Carcinoma, lung. SURGICAL HISTORY : None. ENCOUNTER: Subsequent ACUITY: 3 weeks PAIN SCORE: 5/10 LOCATION: Bilateral chest FINDINGS: Perihilar and basilar consolidation again noted, left more so than right and both sides not significa ntly changed. A small left pleural effusion is again noted. I don't see a pneumothorax. Heart size stable, within normal limits. CONCLUSION: No significant change. Otis Espitia MD on March 28, 2017 at 6:31 Board Certified Radiologist. This report was verified electronically.
--- NOTE | 2017-03-28 06:39 | RADRPT ---
EXAM DATE/TIME: 03/28/2017 04:49 [facility] COMPARISON: CT ABDOMEN & PELVIS W CONTRAST, March 27, 2017, 12:25. ABDOMEN KUB ONLY, March 27, 2017, 3:19. INDICATIONS : Abdominal distention. MEDICAL HISTORY : Gastroparesis. Diabetes mellitus type II. SURGICAL HISTORY : Cholecystectomy. ENCOUNTER: Subsequent ACUITY: 3 weeks PAIN SCORE: 7/10 LOCATION: Bilateral Abdomen FINDINGS: Distended right side of the colon with retained enteric contrast again noted, slightly improved in th e interim. Distal to the transverse colon retained contrast is seen within nondistended bowel. This i s nonspecific but based on the CT I believe there is a sigmoid volvulus. 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 The cecal distention is slightly improved compared to yesterday. Otis Espitia MD on March 28, 2017 at 6:31 Board Certified Radiologist. This report was verified electronically.
[2017-03-28] MEDS: INSULIN NovoLIN REGULAR SUPPLEMENTAL SCALE SQ SCH ×4 (07:00→22:19)
[2017-03-28] MEDS: RIVAROXABAN 20 MG TAB PO SCH (08:25)
[2017-03-28] MEDS: TAMSULOSIN HCL 0.4 MG CAP PO SCH (08:25)
[2017-03-28] MEDS: AMIODARONE 200 MG TAB PO SCH (08:25)
[2017-03-28] MEDS: predniSONE 20 MG TAB PO SCH ×2 (08:25→21:27)
[2017-03-28] MEDS: NYSTAT/DIPHENHY/LIDO MOUTHWASH (Adult) 120ML SWISH-SWAL SCH ×4 (08:26→21:28)
[2017-03-28] MEDS: MORPHINE SULFATE 15 MG TAB PO PRN (08:36)
[2017-03-28] MEDS ORDERED: DIATRIZOATE MEGLUM/DIATRIZOATE SOD 120 ML BTL (for RAD DIAG) RECTAL ONE (10:30)
--- NOTE | 2017-03-28 11:53 | RADRPT ---
EXAM DATE/TIME: 03/28/2017 10:28 [facility] COMPARISON: ABDOMEN KUB ONLY, March 28, 2017, 4:49. CT ABDOMEN & PELVIS W CONTRAST, March 27, 2017, 12:25. INDICATIONS : Evaluate for obstruction. Abdominal pain and distention. FLUORO TIME: 4.2 minutes IMAGE COUNT: 17 CONTRAST: 1. [facility] MEDICAL HISTORY : Gastroparesis. Diabetes mellitus type II. SURGICAL HISTORY : Cholecystectomy. ENCOUNTER: Initial ACUITY: 4 - 6 days PAIN SCORE: 8/10 LOCATION: Bilateral abdomen. FINDINGS: Preliminary film demonstrates a large amount of contrast media remaining throughout the entire colon from previous CT examination. Surgical clips overlie the midabdomen.. Under fluoroscopic guidance a Gastrografin enema was performed with free flow of contrast to the ceca l tip. There is what appears to represent a 7 cm segment of fixed luminal narrowing sigmoid colon Post evacuation radiographs are unremarkable. CONCLUSION: 1. Luminal narrowing of the sigmoid colon as described above. No evidence for obstruction. Earl Araujo MD on March 28, 2017 at 11:49 Board Certified Radiologist. This report was verified electronically.
[2017-03-28] MEDS: HYDROmorphone HCL PF 1 MG/ML VIAL IV PRN (14:56)
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
[2017-03-28] MEDS: SODIUM CHLORIDE 23.4% INJ 77 MEQ in DEXTROSE 10% INJ 1,000 ML IV SCH (17:15)
--- NOTE | 2017-03-28 18:03 | HHI.GIFU ---
Subjective Remarks Comfortable in bed denies any pain apparently had a big bowel movement after the Gastrografin enema Objective Vitals I&O Vital Signs Date Time Temp Pulse Resp B/P Pulse Ox O2 Delivery O2 Flow Rate FiO2 03/28/17 15:26 18 03/28/17 14:00 65 03/28/17 12:00 97.9 76 23 138/76 99 03/28/17 12:00 76 03/28/17 10:00 77 03/28/17 09:36 17 03/28/17 08:00 97.7 78 20 132/64 98 03/28/17 08:00 78 03/28/17 07:10 96 Nasal Cannula 2.00 03/28/17 07:00 98 Nasal Cannula 2.00 03/28/17 04:00 97.8 80 23 120/60 98 03/28/17 02:00 80 03/28/17 00:00 98.2 86 24 126/67 95 03/28/17 00:00 86 03/27/17 22:00 84 03/27/17 20:52 96 Nasal Cannula 2.00 03/27/17 20:00 98.7 88 22 135/71 97 03/27/17 20:00 88 03/27/17 19:00 98 Nasal Cannula 2.00 I/O 03/27/17 03/27/17 03/27/17 03/28/17 03/28/17 03/28/17 07:00 15:00 23:00 07:00 15:00 23:00 Intake Total 100 ml 464 ml 865 ml 484 ml 586 ml Output Total 1150 ml 650 ml 750 ml 350 ml 300 ml Balance -1050 ml -186 ml 115 ml 134 ml 286 ml Intake Oral 0 ml 0 ml 0 ml 0 ml 0 ml IV Total 100 ml 464 ml 865 ml 484 ml 586 ml Output Urine Total 350 ml 450 ml 650 ml 350 ml 300 ml Gastric Drainage Total 800 ml 200 ml 100 ml 0 ml 0 ml Bladder Scan Volume Amount 627 ml # Bowel Movements 0 0 0 0 2 Laboratory Laboratory Tests Test 03/28/17 03:55 White Blood Count 14.0 Red Blood Count 4.04 Hemoglobin 11.7 Hematocrit 34.2 Mean Corpuscular Volume 84.6 Mean Corpuscular Hemoglobin 29.0 Mean Corpuscular Hemoglobin 34.3 Concent Red Cell Distribution Width 21.3 Platelet Count 173 Mean Platelet Volume 7.6 Neutrophils (%) (Auto) 96.8 Lymphocytes (%) (Auto) 1.1 Monocytes (%) (Auto) 1.9 Eosinophils (%) (Auto) 0.1 Basophils (%) (Auto) 0.1 Neutrophils # (Auto) 13.5 Lymphocytes # (Auto) 0.2 Monocytes # (Auto) 0.3 Eosinophils # (Auto) 0.0 Basophils # (Auto) 0.0 CBC Comment DIFF FINAL Differential Comment Sodium Level 134 Potassium Level 3.6 Chloride Level 95 Carbon Dioxide Level 31.9 Anion Gap 7 Blood Urea Nitrogen 15 Creatinine 0.48 Estimat Glomerular Filtration 170 Rate Random Glucose 120 Calcium Level 8.3 Phosphorus Level 2.4 Total Bilirubin 0.5 Aspartate Amino Transf 22 (AST/SGOT) Alanine Aminotransferase 29 (ALT/SGPT) Alkaline Phosphatase 72 Total Protein 5.2 Albumin 1.9 Date/Time Procedure Status Source Growth 03/27/17 04:35 Aerobic Blood Culture - Preliminary Resulted Blood Peripheral NO GROWTH IN 1 DAY 03/27/17 04:35 Anaerobic Blood Culture - Preliminary Resulted Blood Peripheral NO GROWTH IN 1 DAY Imaging Last 48 hours Impressions Abdomen X-Ray 03/28/17 0600 Signed Impressions: Service Date/Time: Tuesday, March 28, 2017 04:49 - CONCLUSION: Probable sigmoid volvulus. The cecal distention is slightly improved compared to yesterday. Otis Espitia MD Enema w/Water Soluble 03/28/17 0000 Signed Impressions: Service Date/Time: Tuesday, March 28, 2017 10:28 - CONCLUSION: 1. Luminal narrowing of the sigmoid colon as described above. No evidence for obstruction. Earl Araujo MD Chest X-Ray 03/28/17 0000 Signed Impressions: Service Date/Time: Tuesday, March 28, 2017 04:46 - CONCLUSION: No significant change. Otis Espitia MD Chest X-Ray 03/27/17 0000 Signed Impressions: Service Date/Time: Monday, March 27, 2017 00:42 - CONCLUSION: Worsening/developing consolidation on the left as above. Mild consolidation on the right stable. No significant change small, bilateral pleural effusions. Otis Espitia MD Abdomen/Pelvis CT 03/27/17 0000 Signed Impressions: Service Date/Time: Monday, March 27, 2017 12:25 - CONCLUSION: 1. Dilatation of portions of the colon with large amount of barium present. This is most consistent with an ileus. 2. Multiple nonobstructing left renal calculi again noted. 3. Infiltrate in both lung bases as well as small effusions. 4. Gastrostomy tube in place. Burke Charles MD Abdomen X-Ray 03/27/17 0000 Signed Impressions: Service Date/Time: Monday, March 27, 2017 03:19 - CONCLUSION: Very distended proximal colon, appears to be worse. Possible point of obstruction in the region of the splenic flexure. Chronically retained contrast in the colon likely an underlying diffuse ileus as well. Otis Espitia MD Physical Exam HEENT: Normocephalic atraumatic. Throat is clear. NECK: Neck is supple. CHEST: Chest is clear to auscultation and percussion. CARDIAC: Regular rate and rhythm with no murmur gallop or rubs. ABDOMEN: Soft, nondistended, nontender; no hepatosplenomegaly; bowel sounds are present in all four quadrants. EXTREMITIES: No clubbing, cyanosis, or edema. SKIN: Normal; no rash; no jaundice. LOCK OPERATOR: No focal deficits; alert and oriented times three. Assessment and Plan Plan ASSESSMENT: - Colonic ileus with possible obstruction and dilated Cecum. KUB (03/27/17)---> Very distended proximal colon, appears to be worse. Possible point of obstruction in the region of the splenic flexure. Chronically retained contrast in the colon likely an underlying diffuse ileus as well. Cecum [address] scan abdomen and pelvis- going at 12 noon. Will await these results and get GS evaluation. PEG to LIWS. - Resp. Insufficiency, Aspiration PNA,COPD. Chest X-Ray (03/27/17)---> Worsening /developing consolidation on the left as above. Mild consolidation on the right stable. No significant change small, bilateral pleural effusions. Zosyn. CCM following. - Leukocytosis. WBC 15.0. Zosyn. - Dysphagia, Has Gastrostomy tube (exchanged 03/26 by IR). Was taking some liquids and TF via g tube. - Gastroparesis, GERD. PPI. - Atrial fibrillation. 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 Rdx per Dr. Casas, had #13/35. - Arthritis, Diabetes mellitus, Hypothyroidism, Major depressive disorder, Congestive heart failure, HTN per primary PLAN: -Ileus resolved -We'll need to switch the G-tube to a GJ tube serosa reduce the risk for aspiration in this patient who is diabetic and has underlying gastroparesis -Further recommendations as per the general surgery service - Monitor labs Seng Tapia MD Mar 28, 2017 18:03
--- NOTE | 2017-03-28 18:08 | HHI.PR ---
Subjective Remarks 76 YOWm with COPD,Sq cell ca epiglotis, was on XRT Anxious at BS Was tr to ISC had Gastrograffin Enema Objective Vital Signs Vital Signs Date Time Temp Pulse Resp B/P Pulse Ox O2 Delivery O2 Flow Rate FiO2 03/28/17 15:26 18 03/28/17 14:00 65 03/28/17 12:00 97.9 76 23 138/76 99 03/28/17 12:00 76 03/28/17 10:00 77 03/28/17 09:36 17 03/28/17 08:00 97.7 78 20 132/64 98 03/28/17 08:00 78 03/28/17 07:10 96 Nasal Cannula 2.00 03/28/17 07:00 98 Nasal Cannula 2.00 03/28/17 04:00 97.8 80 23 120/60 98 03/28/17 02:00 80 03/28/17 00:00 98.2 86 24 126/67 95 03/28/17 00:00 86 03/27/17 22:00 84 03/27/17 20:52 96 Nasal Cannula 2.00 03/27/17 20:00 98.7 88 22 135/71 97 03/27/17 20:00 88 03/27/17 19:00 98 Nasal Cannula 2.00 I/O 03/27/17 03/27/17 03/27/17 03/28/17 03/28/17 03/28/17 07:00 15:00 23:00 07:00 15:00 23:00 Intake Total 100 ml 464 ml 865 ml 484 ml 586 ml Output Total 1150 ml 650 ml 750 ml 350 ml 300 ml Balance -1050 ml -186 ml 115 ml 134 ml 286 ml Intake Oral 0 ml 0 ml 0 ml 0 ml 0 ml IV Total 100 ml 464 ml 865 ml 484 ml 586 ml Output Urine Total 350 ml 450 ml 650 ml 350 ml 300 ml Gastric Drainage Total 800 ml 200 ml 100 ml 0 ml 0 ml Bladder Scan Volume Amount 627 ml # Bowel Movements 0 0 0 0 2 Result Diagram: 03/28/175 03/28/17 0355 Objective Remarks GENERAL: MBMN WM, NAD SKIN: Warm and dry. HEAD: Normocephalic. EYES: No scleral icterus. No injection or drainage. NECK: Supple, trachea midline. No JVD or lymphadenopathy. CARDIOVASCULAR: Regular rate and rhythm without murmurs, gallops, or rubs. RESPIRATORY: Breath sounds equal bilaterally. No accessory muscle use. GASTROINTESTINAL: Abdomen soft, non-tender, nondistended. MUSCULOSKELETAL: No cyanosis, or edema. BACK: Nontender without obvious deformity. No CVA tenderness. A/P Assessment and Plan COPD Lung Infilt Sq Cell ca Epiglotis DM Anxiety PLAN: TRACIE pt and Cont Aerosol nebs Supplement 02 SQ Lovenox IVF Monitor BS TRACIE at BS Suha,Bimal Wilson MD Mar 28, 2017 18:08
--- NOTE | 2017-03-28 21:02 | HHI.PR ---
Subjective Subjective Notes "i feel much better" Objective Vitals/I&O Vital Signs Date Time Temp Pulse Resp B/P Pulse Ox O2 Delivery O2 Flow Rate FiO2 03/28/17 18:00 78 03/28/17 16:00 97.4 25 126/65 98 03/28/17 07:10 Nasal Cannula 2.00 Labs Laboratory Tests Test 03/28/17 03:55 White Blood Count 14.0 Red Blood Count 4.04 Hemoglobin 11.7 Hematocrit 34.2 Mean Corpuscular Volume 84.6 Mean Corpuscular Hemoglobin 29.0 Mean Corpuscular Hemoglobin 34.3 Concent Red Cell Distribution Width 21.3 Platelet Count 173 Mean Platelet Volume 7.6 Neutrophils (%) (Auto) 96.8 Lymphocytes (%) (Auto) 1.1 Monocytes (%) (Auto) 1.9 Eosinophils (%) (Auto) 0.1 Basophils (%) (Auto) 0.1 Neutrophils # (Auto) 13.5 Lymphocytes # (Auto) 0.2 Monocytes # (Auto) 0.3 Eosinophils # (Auto) 0.0 Basophils # (Auto) 0.0 CBC Comment DIFF FINAL Differential Comment Sodium Level 134 Potassium Level 3.6 Chloride Level 95 Carbon Dioxide Level 31.9 Anion Gap 7 Blood Urea Nitrogen 15 Creatinine 0.48 Estimat Glomerular Filtration 170 Rate Random Glucose 120 Calcium Level 8.3 Phosphorus Level 2.4 Total Bilirubin 0.5 Aspartate Amino Transf 22 (AST/SGOT) Alanine Aminotransferase 29 (ALT/SGPT) Alkaline Phosphatase 72 Total Protein 5.2 Albumin 1.9 Date/Time Procedure Status Source Growth 03/27/17 04:35 Aerobic Blood Culture - Preliminary Resulted Blood Peripheral NO GROWTH IN 1 DAY 03/27/17 04:35 Anaerobic Blood Culture - Preliminary Resulted Blood Peripheral NO GROWTH IN 1 DAY Radiology Last 48 hours Impressions Chest X-Ray 03/27/17 0000 Signed Impressions: Service Date/Time: Monday, March 27, 2017 00:42 - CONCLUSION: Worsening/developing consolidation on the left as above. Mild consolidation on the right stable. No significant change small, bilateral pleural effusions. Otis Espitia MD Abdomen/Pelvis CT 03/27/17 0000 Signed Impressions: Service Date/Time: Monday, March 27, 2017 12:25 - CONCLUSION: 1. Dilatation of portions of the colon with large amount of barium present. This is most consistent with an ileus. 2. Multiple nonobstructing left renal calculi again noted. 3. Infiltrate in both lung bases as well as small effusions. 4. Gastrostomy tube in place. Burke Charles MD Abdomen X-Ray 03/27/17 0000 Signed Impressions: Service Date/Time: Monday, March 27, 2017 03:19 - CONCLUSION: Very distended proximal colon, appears to be worse. Possible point of obstruction in the region of the splenic flexure. Chronically retained contrast in the colon likely an underlying diffuse ileus as well. Otis Espitia MD Catheter Change 03/26/17 0000 Signed Impressions: Service Date/Time: February 15:10 - CONCLUSION: Uncomplicated gastrostomy tube exchange as above. Phillip Wheat MD Abdomen: Non-tender Narrative Exam abdomen soft, non-tender A/P Assessment and Plan 76yo male with colonic distension, likely contrast ileus, now with BM and gas after gastrografin contrast enema. abdominal exam benign, continue conservative management. will follow. Bubba Llanos MD Mar 28, 2017 21:02
[2017-03-28] MEDS: ATORVASTATIN 40 MG TAB PO SCH (21:27)
[2017-03-28] MEDS: PANTOPRAZOLE SODIUM 40 MG VIAL IV PUSH SCH (21:27)
[2017-03-29] VITALS (9 sets, daily range): BP systolic 118–143; BP diastolic 60–71; PULSE 71–80; RESP 16–21; TEMP 96–98; O2SAT 95–100
[2017-03-29] MEDS: DILTIAZEM HCL 60 MG TAB PO SCH ×5 (00:38→23:52)
[2017-03-29] MEDS: HYDROmorphone HCL PF 1 MG/ML VIAL IV PRN ×4 (00:39→23:52)
[2017-03-29] MEDS: PIPERACIL-TAZO 4.5 GM PREMIX 100 ML IV SCH ×4 (03:12→22:10)
[2017-03-29] MEDS: INSULIN NovoLIN REGULAR SUPPLEMENTAL SCALE SQ SCH ×4 (04:33→22:14)
[2017-03-29] MEDS: AMIODARONE 200 MG TAB PO SCH (08:55)
[2017-03-29] MEDS: RIVAROXABAN 20 MG TAB PO SCH (08:55)
[2017-03-29] MEDS: NYSTAT/DIPHENHY/LIDO MOUTHWASH (Adult) 120ML SWISH-SWAL SCH ×4 (08:55→22:11)
[2017-03-29] MEDS: predniSONE 20 MG TAB PO SCH ×2 (08:55→22:09)
[2017-03-29] MEDS: TAMSULOSIN HCL 0.4 MG CAP PO SCH (08:55)
--- NOTE | 2017-03-29 11:10 | HHI.PR ---
Subjective Subjective Notes no pain, resting well Objective Vitals/I&O Vital Signs Date Time Temp Pulse Resp B/P Pulse Ox O2 Delivery O2 Flow Rate FiO2 03/29/17 09:02 Nasal Cannula 2.00 03/29/17 08:00 96.2 75 16 128/60 96 Labs Date/Time Procedure Status Source Growth 03/27/17 04:35 Aerobic Blood Culture - Preliminary Resulted Blood Peripheral NO GROWTH IN 2 DAYS 03/27/17 04:35 Anaerobic Blood Culture - Preliminary Resulted Blood Peripheral NO GROWTH IN 2 DAYS Radiology Last 48 hours Impressions Chest X-Ray 03/27/17 0000 Signed Impressions: Service Date/Time: Monday, March 27, 2017 00:42 - CONCLUSION: Worsening/developing consolidation on the left as above. Mild consolidation on the right stable. No significant change small, bilateral pleural effusions. Otis Espitia MD Abdomen/Pelvis CT 03/27/17 0000 Signed Impressions: Service Date/Time: Monday, March 27, 2017 12:25 - CONCLUSION: 1. Dilatation of portions of the colon with large amount of barium present. This is most consistent with an ileus. 2. Multiple nonobstructing left renal calculi again noted. 3. Infiltrate in both lung bases as well as small effusions. 4. Gastrostomy tube in place. Burke Charles MD Abdomen X-Ray 03/27/17 0000 Signed Impressions: Service Date/Time: Monday, March 27, 2017 03:19 - CONCLUSION: Very distended proximal colon, appears to be worse. Possible point of obstruction in the region of the splenic flexure. Chronically retained contrast in the colon likely an underlying diffuse ileus as well. Otis Espitia MD Catheter Change 03/26/17 0000 Signed Impressions: Service Date/Time: February 15:10 - CONCLUSION: Uncomplicated gastrostomy tube exchange as above. Phillip Wheat MD Abdomen: Non-distended, Non-tender Narrative Exam abdomen soft, non-tender A/P Assessment and Plan 76yo male with colonic distension, likely contrast ileus, now with BM and gas after gastrografin contrast enema. abdominal exam a little better, +BM no new c/o will follow Bubba Llanos MD Mar 29, 2017 11:10
[2017-03-29] MEDS: fentaNYL 50 MCG/HR PATCH TOPICAL SCH (12:33)
[2017-03-29] MEDS: REMOVE OLD DURAGESIC (FENTANYL) PATCH T-DERMAL SCH (12:35)
--- NOTE | 2017-03-29 12:48 | HHI.GIFU ---
Subjective Remarks 76 yo male resting in bed in no apparent distress. No new complaints. (Estefany Jimenez) Objective Vitals I&O Vital Signs Date Time Temp Pulse Resp B/P Pulse Ox O2 Delivery O2 Flow Rate FiO2 03/29/17 09:02 Nasal Cannula 2.00 03/29/17 08:00 96.2 75 16 128/60 96 03/29/17 04:00 98.0 77 18 118/62 97 03/29/17 02:33 16 03/29/17 00:38 Nasal Cannula 2.00 03/29/17 00:00 96.0 77 21 125/64 95 03/28/17 22:00 77 03/28/17 20:00 78 03/28/17 20:00 98.1 78 20 115/60 100 03/28/17 19:00 100 Nasal Cannula 2.00 03/28/17 18:00 78 03/28/17 16:00 97.4 78 25 126/65 98 03/28/17 16:00 78 03/28/17 14:00 65 I/O 03/28/17 03/28/17 03/28/17 03/29/17 03/29/17 03/29/17 07:00 15:00 23:00 07:00 15:00 23:00 Intake Total 484 ml 586 ml 500 ml Output Total 350 ml 300 ml 301 ml 350 ml Balance 134 ml 286 ml 199 ml -350 ml Intake Oral 0 ml 0 ml 0 ml IV Total 484 ml 586 ml 500 ml Output Urine Total 350 ml 300 ml 300 ml 350 ml Stool Total 1 ml Gastric Drainage Total 0 ml 0 ml Bladder Scan Volume Amount 627 ml # Bowel Movements 0 2 Laboratory Date/Time Procedure Status Source Growth 03/27/17 04:35 Aerobic Blood Culture - Preliminary Resulted Blood Peripheral NO GROWTH IN 2 DAYS 03/27/17 04:35 Anaerobic Blood Culture - Preliminary Resulted Blood Peripheral NO GROWTH IN 2 DAYS Imaging Last Impressions Abdomen X-Ray 03/28/17 0600 Signed Impressions: Service Date/Time: Tuesday, March 28, 2017 04:49 - CONCLUSION: Probable sigmoid volvulus. The cecal distention is slightly improved compared to yesterday. Otis Espitia MD Enema w/Water Soluble 03/28/17 0000 Signed Impressions: Service Date/Time: Tuesday, March 28, 2017 10:28 - CONCLUSION: 1. Luminal narrowing of the sigmoid colon as described above. No evidence for obstruction. Earl Araujo MD Chest X-Ray 03/28/17 Signed Impressions: Service Date/Time: Tuesday, March 28, 2017 04:46 - CONCLUSION: No significant change. Otis Espitia MD Abdomen/Pelvis CT 03/27/17 0000 Signed Impressions: Service Date/Time: Monday, March 27, 2017 12:25 - CONCLUSION: 1. Dilatation of portions of the colon with large amount of barium present. This is most consistent with an ileus. 2. Multiple nonobstructing left renal calculi again noted. 3. Infiltrate in both lung bases as well as small effusions. 4. Gastrostomy tube in place. Burke Charles MD Catheter Change 03/26/17 0000 Signed Impressions: Service Date/Time: February 15:10 - CONCLUSION: Uncomplicated gastrostomy tube exchange as above. Phillip Wheat MD Thoracic Spine CT 03/14/17 0000 Signed Impressions: Service Date/Time: Tuesday, March 14, 2017 16:31 - CONCLUSION: 1. There is a moderate compression deformity of T5 not significantly changed from CT in January. Osteopenia. Bilateral pleural effusions. Giorgio Maldonado MD Lumbar Spine CT 03/14/17 0000 Signed Impressions: Service Date/Time: Tuesday, March 14, 2017 16:31 - CONCLUSION: 1. Mild compression deformity of L1 which appears chronic. Osteopenia. No acute fracture seen. 2. Mild posterior disc protrusion at L5-S1, slightly worse on the left side with encroachment on the left lateral recess. Giorgio Maldonado MD CT Angiography 03/13/17 0000 Signed Impressions: Service Date/Time: Monday, March 13, 2017 15:12 - CONCLUSION: Interval development of left lower lobe collapse secondary to endobronchial soft tissue density with intermixed air lucency having the appearance of mucous plugging and debris. Bilateral pleural effusions, consolidation and atelectasis. There is no evidence of pulmonary embolus. Earl Araujo MD Physical Exam HEENT: PERRLA. Normocephalic atraumatic. Throat is clear. NECK: Neck is supple. CHEST: CTA CARDIAC: RRR ABDOMEN: Soft, nondistended, nontender; no hepatosplenomegaly; bowel sounds x 4 EXTREMITIES: No clubbing, cyanosis, or edema. SKIN: Normal; no rash; no jaundice. SKATE MAKER: No focal deficits; A&O x3 (Estefany Jimenez) Assessment and Plan Plan ASSESSMENT: - Colonic ileus with possible obstruction and dilated Cecum. Resolved. KUB (03/27)---> Very distended proximal colon, appears to be worse. Possible point of obstruction in the region of the splenic flexure. Chronically retained contrast in the colon likely an underlying diffuse ileus as well. Cecum 15 cm. NPO. Abdomen/Pelvis CT 03/27/17 0000 Signed-- Dilatation of portions of the colon with large amount of barium present. This is most consistent with an ileus. 2. Multiple nonobstructing left renal calculi again noted. 3. Infiltrate in both lung bases as well as small effusions. 4.Gastrostomy tube in place. Abdomen X-Ray 03/28/17--Probable sigmoid volvulus. The cecal distention is slightly improved compared to yesterday. Enema w/Water Soluble 03/28/17--1. Luminal narrowing of the sigmoid colon as described above. No evidence for obstruction. - Resp. Insufficiency, Aspiration PNA,COPD. Chest X-Ray (03/27/17)---> Worsening /developing consolidation on the left as above. Mild consolidation on the right stable. No significant change small, bilateral pleural effusions. Zosyn. CCM following. - Leukocytosis. WBC 14.0. Zosyn. - Dysphagia, Has Gastrostomy tube (exchanged 03/26 by IR). Was taking some liquids and TF via g tube. - Gastroparesis, GERD. PPI. - Atrial fibrillation. 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 Rdx per Dr. Casas, had #13/35. - Arthritis, Diabetes mellitus, Hypothyroidism, Major depressive disorder, Congestive heart failure, HTN per primary PLAN: - Ileus resolved - Need to switch the G-tube to a GJ tube serosa to reduce the risk for aspiration in this patient who is diabetic and has underlying gastroparesis - Monitor labs - Supportive care - Further recommendations as per the general surgery service Patient seen and examined by Dr. Tapia and myself and this note is written on his behalf. (Estefany Jimenez) Physician Comments Patient seen and examined Agree with above Continue with current supportive care Monitor labs IR to change the G-tube to a GJ tube (Seng Tapia MD) Estefany Jimenez Mar 29, 2017 12:48 Seng Tapia MD Mar 29, 2017 14:38
[2017-03-29] MEDS: SODIUM CHLORIDE 23.4% INJ 77 MEQ in DEXTROSE 10% INJ 1,000 ML IV SCH (14:42)
--- NOTE | 2017-03-29 17:15 | HHI.PR ---
Subjective Remarks 76 YOWm with COPD,Sq cell ca epiglotis, was on XRT Anxious at BS Tired, sleeping all day NPO, for change to G-J tube Objective Vital Signs Vital Signs Date Time Temp Pulse Resp B/P Pulse Ox O2 Delivery O2 Flow Rate FiO2 03/29/17 17:08 98 Nasal Cannula 2.00 03/29/17 12:00 96.3 80 18 143/71 98 03/29/17 11:30 97 Nasal Cannula 2.00 03/29/17 09:02 Nasal Cannula 2.00 03/29/17 08:12 75 03/29/17 08:00 96.2 75 16 128/60 96 03/29/17 04:00 98.0 77 18 118/62 97 03/29/17 02:33 16 03/29/17 00:38 Nasal Cannula 2.00 03/29/17 00:00 96.0 77 21 125/64 95 03/28/17 22:00 77 03/28/17 20:00 78 03/28/17 20:00 98.1 78 20 115/60 100 03/28/17 19:00 100 Nasal Cannula 2.00 03/28/17 18:00 78 I/O 03/28/17 03/28/17 03/28/17 03/29/17 03/29/17 03/29/17 07:00 15:00 23:00 07:00 15:00 23:00 Intake Total 484 ml 586 ml 500 ml 0 ml Output Total 350 ml 300 ml 301 ml 350 ml 200 ml Balance 134 ml 286 ml 199 ml -350 ml -200 ml Intake Oral 0 ml 0 ml 0 ml 0 ml IV Total 484 ml 586 ml 500 ml Output Urine Total 350 ml 300 ml 300 ml 350 ml 200 ml Stool Total 1 ml Gastric Drainage Total 0 ml 0 ml Bladder Scan Volume Amount 627 ml # Bowel Movements 0 2 0 Result Diagram: 03/28/17 0355 03/28/17 0355 Objective Remarks GENERAL: MBMN WM, NAD SKIN: Warm and dry. HEAD: Normocephalic. EYES: No scleral icterus. No injection or drainage. NECK: Supple, trachea midline. No JVD or lymphadenopathy. CARDIOVASCULAR: Regular rate and rhythm without murmurs, gallops, or rubs. RESPIRATORY: Breath sounds equal bilaterally. No accessory muscle use. GASTROINTESTINAL: Abdomen soft, non-tender, nondistended. MUSCULOSKELETAL: No cyanosis, or edema. BACK: Nontender without obvious deformity. No CVA tenderness. A/P Assessment and Plan COPD Lung Infilt Sq Cell ca Epiglotis DM Anxiety PLAN: DW pt and Cont Aerosol nebs Supplement 02 SQ Lovenox IVF Monitor LÓPEZ HODGES at BS Bimal Borden MD Mar 29, 2017 17:15
[2017-03-29] MEDS: ATORVASTATIN 40 MG TAB PO SCH (22:09)
[2017-03-29] MEDS: PANTOPRAZOLE SODIUM 40 MG VIAL IV PUSH SCH (22:10)
[2017-03-30] VITALS (10 sets, daily range): BP systolic 118–169; BP diastolic 66–83; PULSE 67–78; RESP 16–22; TEMP 96.4–98.3; O2SAT 98–100
[2017-03-30] MEDS: PIPERACIL-TAZO 4.5 GM PREMIX 100 ML IV SCH ×4 (02:24→21:12)
[2017-03-30] MEDS: INSULIN NovoLIN REGULAR SUPPLEMENTAL SCALE SQ SCH ×4 (06:41→21:09)
[2017-03-30] MEDS: DILTIAZEM HCL 60 MG TAB PO SCH ×3 (06:42→18:16)
[2017-03-30] MEDS: HYDROmorphone HCL PF 1 MG/ML VIAL IV PRN ×3 (06:42→18:17)
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
[2017-03-30] MEDS: RIVAROXABAN 20 MG TAB PO SCH (11:07)
[2017-03-30] MEDS: predniSONE 20 MG TAB PO SCH ×2 (11:40→21:10)
[2017-03-30] MEDS: TAMSULOSIN HCL 0.4 MG CAP PO SCH (11:41)
[2017-03-30] MEDS: AMIODARONE 200 MG TAB PO SCH (11:41)
[2017-03-30] MEDS: NYSTAT/DIPHENHY/LIDO MOUTHWASH (Adult) 120ML SWISH-SWAL SCH ×4 (11:42→21:00)
[2017-03-30] MEDS: LORazepam 1 MG TAB PEG PRN (13:06)
--- NOTE | 2017-03-30 15:12 | HHI.GIFU ---
Subjective Remarks Pt resting in bed. No n/v. Abdomen quite distended today. States he has passed some flatus, BM yesterday. Upset that he has not had anything to eat. ( TF). Nurse reports IR will be converting G tube to G/J on Thursday. (Isabella Burgess) Objective Vitals I&O Vital Signs Date Time Temp Pulse Resp B/P Pulse Ox O2 Delivery O2 Flow Rate FiO2 03/30/17 08:54 Nasal Cannula 2.00 03/30/17 08:00 97.8 70 20 152/74 99 03/30/17 07:55 98 Nasal Cannula 2.00 03/30/17 07:42 67 03/30/17 07:37 18 03/30/17 04:00 98.1 69 19 118/66 99 03/30/17 00:32 78 03/30/17 00:00 98.0 70 19 128/67 100 03/29/17 22:14 Nasal Cannula 2.00 03/29/17 20:00 97.5 71 18 124/67 100 03/29/17 17:08 98 Nasal Cannula 2.00 03/29/17 16:00 97.6 76 18 137/66 99 I/O 03/29/17 03/29/17 03/29/17 03/30/17 03/30/17 03/30/17 07:00 15:00 23:00 07:00 15:00 23:00 Intake Total 0 ml 0 ml Output Total 350 ml 200 ml 600 ml 350 ml Balance -350 ml -200 ml -600 ml -350 ml Intake Oral 0 ml 0 ml Output Urine Total 350 ml 200 ml 600 ml 350 ml Bladder Scan Volume Amount 627 ml 627 ml 627 ml # Bowel Movements 0 Laboratory Date/Time Procedure Status Source Growth 03/27/17 04:35 Aerobic Blood Culture - Preliminary Resulted Blood Peripheral NO GROWTH IN 3 DAYS 03/27/17 04:35 Anaerobic Blood Culture - Preliminary Resulted Blood Peripheral NO GROWTH IN 3 DAYS Imaging Last Impressions Abdomen X-Ray 03/28/17 0600 Signed Impressions: Service Date/Time: Tuesday, March 28, 2017 04:49 - CONCLUSION: Probable sigmoid volvulus. The cecal distention is slightly improved compared to yesterday. Otis Espitia MD Enema w/Water Soluble 03/28/17 0000 Signed Impressions: Service Date/Time: Tuesday, March 28, 2017 10:28 - CONCLUSION: 1. Luminal narrowing of the sigmoid colon as described above. No evidence for obstruction. Earl Araujo MD Chest X-Ray 03/28/17 0000 Signed Impressions: Service Date/Time: Tuesday, March 28, 2017 04:46 - CONCLUSION: No significant change. Otis Espitia MD Abdomen/Pelvis CT 03/27/17 0000 Signed Impressions: Service Date/Time: Monday, March 27, 2017 12:25 - CONCLUSION: 1. Dilatation of portions of the colon with large amount of barium present. This is most consistent with an ileus. 2. Multiple nonobstructing left renal calculi again noted. 3. Infiltrate in both lung bases as well as small effusions. 4. Gastrostomy tube in place. Burke Charles MD Catheter Change 03/26/17 0000 Signed Impressions: Service Date/Time: February 15:10 - CONCLUSION: Uncomplicated gastrostomy tube exchange as above. Phillip Wheat MD Thoracic Spine CT 03/14/17 0000 Signed Impressions: Service Date/Time: Tuesday, March 14, 2017 16:31 - CONCLUSION: 1. There is a moderate compression deformity of T5 not significantly changed from CT in January. Osteopenia. Bilateral pleural effusions. Giorgio Maldonado MD Lumbar Spine CT 03/14/17 0000 Signed Impressions: Service Date/Time: Tuesday, March 14, 2017 16:31 - CONCLUSION: 1. Mild compression deformity of L1 which appears chronic. Osteopenia. No acute fracture seen. 2. Mild posterior disc protrusion at L5-S1, slightly worse on the left side with encroachment on the left lateral recess. Giorgio Maldonado MD CT Angiography 03/13/17 0000 Signed Impressions: Service Date/Time: Monday, March 13, 2017 15:12 - CONCLUSION: Interval development of left lower lobe collapse secondary to endobronchial soft tissue density with intermixed air lucency having the appearance of mucous plugging and debris. Bilateral pleural effusions, consolidation and atelectasis. There is no evidence of pulmonary embolus. Earl Araujo MD Physical Exam HEENT: Normocephalic atraumatic. Throat is clear. CHEST: CTA, diminished bases. CARDIAC: RRR ABDOMEN: Abdomen distended, mild diffuse tenderness, no hepatosplenomegaly; bowel sounds EXTREMITIES: No clubbing, cyanosis, or edema. SKIN: Normal; no rash; no jaundice. 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 Resolved. KUB (03/27)---> Very distended proximal colon, appears to be worse. Possible point of obstruction in the region of the splenic flexure. Chronically retained contrast in the colon likely an underlying diffuse ileus as well. Cecum 15 cm. NPO. Abdomen/Pelvis CT 03/27/17 0000 Signed-- Dilatation of portions of the colon with large amount of barium present. This is most consistent with an ileus. 2. Multiple nonobstructing left renal calculi again noted. 3. Infiltrate in both lung bases as well as small effusions. 4.Gastrostomy tube in place. Abdomen X-Ray 03/28/17--Probable sigmoid volvulus. The cecal distention is slightly improved compared to yesterday. Enema w/Water Soluble 03/28/17--1. Luminal narrowing of the sigmoid colon as described above. No evidence for obstruction. He did have several bowel movements after the gastrografin enema. However, he is quite distended today with mild diffuse tenderness. Will get KUB to fu on colonic distention. NPO for now. GS following. - Narrowing of the sigmoid colon on gastrografin enema. Will get KUB, ? Sigmoidoscopy- will d/w - Resp. Insufficiency, Aspiration PNA,COPD. Chest X-Ray (03/27/17)---> Worsening /developing consolidation on the left as above. Mild consolidation on the right stable. No significant change small, bilateral pleural effusions. Zosyn. CCM following. - Leukocytosis. WBC 14.0 on 03/28. Zosyn. - Dysphagia, Has Gastrostomy tube (exchanged 03/26 by IR). Was taking some liquids and TF via g tube. IR scheduled to convert this to G/J tube on Thursday (Has been on xarelto) - Gastroparesis, GERD. PPI. - Atrial fibrillation. 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 Rdx per Dr. Casas, had #13/35. - Arthritis, Diabetes mellitus, Hypothyroidism, Major depressive disorder, Congestive heart failure, HTN per primary PLAN: - NPO - KUB today - PPI - IR planning to convert G-tube to G/J tube on Thursday once the Xarelto has been held. - Monitor labs - Supportive care - Further recommendations as per the general surgery service - Patient seen and examined by Dr. Miranda and myself and this note is written on his behalf. (Isabella Burgess) Physician Comments Seen and examined with CERTIFIED PROSTHETIST, worsening abdominal distension, long stricture seen on barium enema. Decompression colonoscopy tomorrow (Becca Miranda MD) Isabella Burgess March 30, 2017 15:12 Becca Miranda MD March 30, 2017 20:25
--- NOTE | 2017-03-30 15:31 | HHI.PR ---
Subjective Subjective Notes Just back from radiation RN at bedside at bedside Objective Vitals/I&O Vital Signs Date Time Temp Pulse Resp B/P Pulse Ox O2 Delivery O2 Flow Rate FiO2 03/30/17 12:00 98.3 78 20 128/67 99 03/30/17 08:54 Nasal Cannula 2.00 Labs Date/Time Procedure Status Source Growth 03/27/17 04:35 Aerobic Blood Culture - Preliminary Resulted Blood Peripheral NO GROWTH IN 3 DAYS 03/27/17 04:35 Anaerobic Blood Culture - Preliminary Resulted Blood Peripheral NO GROWTH IN 3 DAYS Radiology Last 48 hours Impressions Chest X-Ray 03/27/17 0000 Signed Impressions: Service Date/Time: Monday, March 27, 2017 00:42 - CONCLUSION: Worsening/developing consolidation on the left as above. Mild consolidation on the right stable. No significant change small, bilateral pleural effusions. Otis Espitia MD Abdomen/Pelvis CT 03/27/17 0000 Signed Impressions: Service Date/Time: Monday, March 27, 2017 12:25 - CONCLUSION: 1. Dilatation of portions of the colon with large amount of barium present. This is most consistent with an ileus. 2. Multiple nonobstructing left renal calculi again noted. 3. Infiltrate in both lung bases as well as small effusions. 4. Gastrostomy tube in place. Burke Charles MD Abdomen X-Ray 03/27/17 0000 Signed Impressions: Service Date/Time: Monday, March 27, 2017 03:19 - CONCLUSION: Very distended proximal colon, appears to be worse. Possible point of obstruction in the region of the splenic flexure. Chronically retained contrast in the colon likely an underlying diffuse ileus as well. Otis Espitia MD Catheter Change 03/26/17 0000 Signed Impressions: Service Date/Time: February 15:10 - CONCLUSION: Uncomplicated gastrostomy tube exchange as above. Phillip Wheat MD Cardiovascular: Regular Lungs: Clear Abdomen: Other (distended but much improved from Thursday's exam; non tender; PEG in place ) Extremities: No edema A/P Assessment and Plan 76 year old male with colonic distension, likely contrast ileus, now with BM and gas after gastrografin contrast enema. -+BM after GGE -Continue to monitor abdominal exam -KUB today -Follow labs -IR planning to exchange PEG tube for G/J tube on Thursday Attending Statement The exam, history, and the medical decision-making described in the above note were completed with the assistance of the mid-level provider. I reviewed and agree with the findings presented. I attest that I had a [id number] encounter with the patient on the same day, and personally performed and documented my assessment and findings in the medical record. Abdominal exam stable, tender to palpation without rebound tenderness or peritonitis, having BM with enema, likely contrast colonic ileus Gege Salcedo March 30, 2017 15:31 Bubba Llanos MD April 28, 2017 11:20
[2017-03-30] MEDS: SODIUM CHLORIDE 23.4% INJ 77 MEQ in DEXTROSE 10% INJ 1,000 ML IV SCH (15:59)
--- NOTE | 2017-03-30 16:44 | HHI.PR ---
Subjective Remarks 76 YOWm with COPD,Sq cell ca epiglotis, was on XRT Anxious at BS Feels hungry NPO, for change to G-J tube Objective Vital Signs Vital Signs Date Time Temp Pulse Resp B/P Pulse Ox O2 Delivery O2 Flow Rate FiO2 03/30/17 12:00 98.3 78 20 128/67 99 03/30/17 08:54 Nasal Cannula 2.00 03/30/17 08:00 97.8 70 20 152/74 99 03/30/17 07:55 98 Nasal Cannula 2.00 03/30/17 07:42 67 03/30/17 07:37 18 03/30/17 04:00 98.1 69 19 118/66 99 03/30/17 00:32 78 03/30/17 00:00 98.0 70 19 128/67 100 03/29/17 22:14 Nasal Cannula 2.00 03/29/17 20:00 97.5 71 18 124/67 100 03/29/17 17:08 98 Nasal Cannula 2.00 I/O 03/29/17 03/29/17 03/29/17 03/30/17 03/30/17 03/30/17 07:00 15:00 23:00 07:00 15:00 23:00 Intake Total 0 ml 0 ml 1390 ml Output Total 350 ml 200 ml 600 ml 350 ml Balance -350 ml -200 ml -600 ml -350 ml 1390 ml Intake Oral 0 ml 0 ml IV Total 1390 ml Output Urine Total 350 ml 200 ml 600 ml 350 ml Bladder Scan Volume Amount 627 ml 627 ml 627 ml # Bowel Movements 0 Result Diagram: 03/28/17 0355 03/28/17 0355 Objective Remarks GENERAL: MBMN WM, NAD SKIN: Warm and dry. HEAD: Normocephalic. EYES: No scleral icterus. No injection or drainage. NECK: Supple, trachea midline. No JVD or lymphadenopathy. CARDIOVASCULAR: Regular rate and rhythm without murmurs, gallops, or rubs. RESPIRATORY: Breath sounds equal bilaterally. No accessory muscle use. GASTROINTESTINAL: Abdomen soft, non-tender, nondistended. MUSCULOSKELETAL: No cyanosis, or edema. BACK: Nontender without obvious deformity. No CVA tenderness. A/P Assessment and Plan COPD Lung Infilt Sq Cell ca Epiglotis DM Anxiety PLAN: DW pt and Cont Aerosol nebs Supplement 02 SQ Lovenox IVF Monitor BS IR Consulted to convert G tube to G-J Tube Bimal Borden MD March 30, 2017 16:44
--- NOTE | 2017-03-30 17:22 | RADRPT ---
EXAM DATE/TIME: 03/30/2017 15:03 [facility] COMPARISON: CT ABDOMEN & PELVIS W CONTRAST, March 27, 2017, 12:25. GASTROGRAFIN ENEMA, March 28, 2017, 10:28. INDICATIONS : Distention MEDICAL HISTORY : Gastroparesis. Diabetes mellitus type II. SURGICAL HISTORY : Cholecystectomy. ENCOUNTER: Subsequent ACUITY: 3 weeks PAIN SCORE: 7/10 LOCATION: Abdomen FINDINGS: There is persistence of water-soluble contrast throughout the colon with some evacuation distally. Th ere is occasional air noted in nondilated small bowel loops. A gastrostomy tube is present. CONCLUSION: Some interval evacuation of the distal colon. Persistent dilation of the ascending and transverse col on with retained Gastrografin Otis Pereyra MD on March 30, 2017 at 17:18 Board Certified Radiologist. This report was verified electronically.
[2017-03-30] MEDS: ATORVASTATIN 40 MG TAB PO SCH (21:10)
[2017-03-30] MEDS: PANTOPRAZOLE SODIUM 40 MG VIAL IV PUSH SCH (21:10)
[2017-03-31] VITALS (8 sets, daily range): BP systolic 131–148; BP diastolic 66–74; PULSE 67–72; RESP 16–20; TEMP 96–96.6; O2SAT 95–100
[2017-03-31] MEDS: DILTIAZEM HCL 60 MG TAB PO SCH ×5 (00:10→23:13)
[2017-03-31] MEDS: PIPERACIL-TAZO 4.5 GM PREMIX 100 ML IV SCH ×3 (00:10→20:06)
[2017-03-31] MEDS: HYDROmorphone HCL PF 1 MG/ML VIAL IV PRN ×4 (00:11→23:14)
[2017-03-31] MEDS: INSULIN NovoLIN REGULAR SUPPLEMENTAL SCALE SQ SCH ×4 (05:55→20:11)
[2017-03-31] MEDS: LORazepam 1 MG TAB PEG PRN ×2 (09:29→18:22)
[2017-03-31] MEDS: AMIODARONE 200 MG TAB PO SCH (09:30)
[2017-03-31] MEDS: predniSONE 20 MG TAB PO SCH ×2 (09:30→20:07)
[2017-03-31] MEDS: TAMSULOSIN HCL 0.4 MG CAP PO SCH (09:43)
[2017-03-31] MEDS: RIVAROXABAN 20 MG TAB PO SCH (09:43)
[2017-03-31] MEDS: NYSTAT/DIPHENHY/LIDO MOUTHWASH (Adult) 120ML SWISH-SWAL SCH ×4 (09:44→20:11)
[2017-03-31] MEDS ORDERED: PHENYLEPH/NS 1000 MCG/10 ML SYR IV ONE (12:00)
[2017-03-31] MEDS ORDERED: MIDAZOLAM HCL 2 MG/2 ML VIAL ONE (12:46)
--- NOTE | 2017-03-31 13:09 | GIPROC ---
[facility] [address] [facility]. [facility] [place], [address] FLEXIBLE SIGMOIDOSCOPY PROCEDURE REPORT EXAM DATE: 03/31/2017 PATIENT NAME: Curtis Santana MR #: [id number] BIRTHDATE: 1940 ORDER #: [id number] ATTENDING: Becca Miranda MD MARINA DRY DOCK MANAGER: Tremaine Yo and Lady Jacques STATUS: inpatient INDICATIONS: The patient is a 76 yr old male here for a flexible sigmoidoscopy due to abdominal pain, generalized and constipation PROCEDURE PERFORMED: Flexible Sigmoidoscopy with decopression MEDICATIONS: None and Per Anesthesia. ESTIMATED BLOOD LOSS: None CONSENT: The patient understands the risks and benefits of the procedure and understands that these risks include, but are not limited to: sedation, allergic reaction, infection, perforation and/or bleeding. Alternative means of evaluation and treatment include, among others: physical exam, x-rays, and/or surgical intervention. The patient elects to proceed with this endoscopic procedure. medical equipment was checked for proper function. Hand hygiene and appropriate measures for infection prevention was taken. After the risks, benefits and alternatives of the procedure were thoroughly explained, Informed consent was verified, confirmed and timeout was successfully executed by the treatment team. A digital rectal exam revealed external hemorrhoids The Pentax [id number] endoscope was introduced through the anus and advanced to the splenic flexure. The prep was poor. The instrument was then slowly withdrawn as the colon was fully examined. COLON FINDINGS: Distended colon full of soft stool. Colon washed with water. Retroflexed views revealed internal hemorrhoid The scope was then completely withdrawn from the patient and the procedure terminated. ADVERSE EVENTS: There were no complications. IMPRESSIONS: 1. Distended colon full of soft stool. Colon washed with water 2. Retroflexed views revealed internal hemorrhoid 3. Revealed external hemorrhoids RECOMMENDATIONS: Start TF, continue bowel regimen RECALL: NONE Becca Miranda MD eSigned: Becca Miranda MD 03/31/2017 1:08 PM cc:
[2017-03-31] MEDS ORDERED: DO NOT ADM ANY ANTICOAGULANT DRUGS PRN (14:00)
[2017-03-31] MEDS ORDERED: PROPOFOL 200 MG/20 ML AMP IV ONE (14:17)
[2017-03-31] MEDS: DEXT 5%-NACL 0.45% 1000 ML INJ 1,000 ML IV SCH (14:20)
--- NOTE | 2017-03-31 19:16 | HHI.PR ---
Subjective Remarks 76 YOWm with COPD,Sq cell ca epiglotis, was on XRT Anxious at BS Feels hungry NPO, for change to G-J tube Had sigmoidoscopy done Objective Vital Signs Vital Signs Date Time Temp Pulse Resp B/P Pulse Ox O2 Delivery O2 Flow Rate FiO2 03/31/17 18:29 16 03/31/17 14:00 96.6 72 20 142/71 95 03/31/17 14:00 97.8 70 16 123/65 96 Nasal Cannula 2 03/31/17 13:45 70 15 126/62 99 Nasal Cannula 3 03/31/17 13:30 97.6 68 16 122/59 98 Nasal Cannula 3 03/31/17 11:06 68 18 131/66 98 03/31/17 08:27 69 03/31/17 04:00 96.3 71 16 131/67 98 03/31/17 00:05 96.2 67 17 136/73 100 03/30/17 21:10 Nasal Cannula 2.00 03/30/17 21:00 96.4 68 16 131/72 100 03/30/17 20:25 67 03/30/17 20:00 Nasal Cannula 2.00 I/O 03/30/17 03/30/17 03/30/17 03/31/17 03/31/17 03/31/17 07:00 15:00 23:00 07:00 15:00 23:00 Intake Total 1390 ml 250 ml Output Total 350 ml 325 ml Balance -350 ml 1065 ml 250 ml IV Total 1390 ml 50 ml Other 200 ml Output Urine Total 350 ml 325 ml Bladder Scan Volume Amount 627 ml # Bowel Movements 3 Result Diagram: 03/28/17 0355 03/28/17 0355 Objective Remarks GENERAL: MBMN WM, NAD SKIN: Warm and dry. HEAD: Normocephalic. EYES: No scleral icterus. No injection or drainage. NECK: Supple, trachea midline. No JVD or lymphadenopathy. CARDIOVASCULAR: Regular rate and rhythm without murmurs, gallops, or rubs. RESPIRATORY: Breath sounds equal bilaterally. No accessory muscle use. GASTROINTESTINAL: Abdomen soft, non-tender, nondistended. MUSCULOSKELETAL: No cyanosis, or edema. BACK: Nontender without obvious deformity. No CVA tenderness. A/P Assessment and Plan COPD Lung Infilt Sq Cell ca Epiglotis DM Anxiety PLAN: DW pt and Cont Aerosol nebs Supplement 02 SQ Lovenox IVF Monitor BS IR Consulted to convert G tube to G-J Tube Bimal Borden MD March 31, 2017 19:16
[2017-03-31] MEDS: PANTOPRAZOLE SODIUM 40 MG VIAL IV PUSH SCH (20:07)
[2017-03-31] MEDS: ATORVASTATIN 40 MG TAB PO SCH (20:07)
[2017-03-31 21:03] LABS: AUTOMATED NEUTROPHIL # 8.3 TH/MM3 (1.8-7.7); BASOPHIL % 0.1 % (0.0-2.0); EOSINOPHIL % 0.1 % (0.0-4.0); HEMO FLAGS DIFF FINAL; LYMPH % 2.1 % (9.0-44.0); LYMPHOCYTE # 0.2 TH/MM3 (1.0-4.8); MEAN CELL VOLUME 84.9 FL (80.0-100.0); MEAN CORPUSCULAR HEMOGLOBIN 28.3 PG (27.0-34.0); MEAN CORPUSCULAR HGB CONC 33.3 % (32.0-36.0); MONO % 4.4 % (0.0-8.0); NEUT % 93.3 % (16.0-70.0); PLATELET COUNT 157 TH/MM3 (150-450); RED BLOOD COUNT 4.35 MIL/MM3 (4.50-5.90); RED CELL DISTRIBUTION WIDTH 20.3 % (11.6-17.2); WHITE BLOOD COUNT 8.9 TH/MM3 (4.0-11.0)
[2017-03-31 21:28] LABS: BICARBONATE 26.8 MEQ/L (21.0-32.0)
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
[2017-04-01] VITALS (12 sets, daily range): BP systolic 134–166; BP diastolic 68–88; PULSE 65–79; RESP 18–20; TEMP 96–97.6; O2SAT 95–100
[2017-04-01] MEDS: PIPERACIL-TAZO 4.5 GM PREMIX 100 ML IV SCH ×4 (01:56→21:02)
[2017-04-01] MEDS: LORazepam 1 MG TAB PEG PRN ×2 (02:03→10:14)
[2017-04-01] MEDS: DILTIAZEM HCL 60 MG TAB PO SCH ×3 (06:16→17:25)
[2017-04-01] MEDS: INSULIN NovoLIN REGULAR SUPPLEMENTAL SCALE SQ SCH ×4 (06:16→21:00)
[2017-04-01] MEDS: NYSTAT/DIPHENHY/LIDO MOUTHWASH (Adult) 120ML SWISH-SWAL SCH ×4 (08:18→21:00)
[2017-04-01] MEDS: TAMSULOSIN HCL 0.4 MG CAP PO SCH (08:19)
[2017-04-01] MEDS: RIVAROXABAN 20 MG TAB PO SCH (08:25)
[2017-04-01] MEDS: predniSONE 20 MG TAB PO SCH ×2 (08:28→21:03)
[2017-04-01] MEDS: AMIODARONE 200 MG TAB PO SCH (08:29)
--- NOTE | 2017-04-01 10:33 | PD.CONS ---
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 have been "brought forward" into today's note. My signature on this note, however, is an attestation that I personally performed the exam, history, and/or decision-making noted today, and, unless otherwise indicated, the interactions with patient, family, and staff as well as the review of records all occurred today. I also attest that the listed assessment and stated plan reflect my best clinical judgment today based on the combination of historical information, prior notes, and today's exam/ interactions. When time spent is documented, it refers only to time spent today by the signer, or if indicated, combined time spent today by collaborating physician/nurse practitioner. JESSA JOSEPH April 01, 2017 10:33
[2017-04-01] MEDS: fentaNYL 50 MCG/HR PATCH TOPICAL SCH (12:45)
[2017-04-01] MEDS: REMOVE OLD DURAGESIC (FENTANYL) PATCH T-DERMAL SCH (12:45)
--- NOTE | 2017-04-01 13:39 | HHI.GIFU ---
Subjective Remarks Abdominal distention improved. + BM. No n/v at this time. NPO for procedure later today. (Isabella Burgess) Objective Vitals I&O Vital Signs Date Time Temp Pulse Resp B/P Pulse Ox O2 Delivery O2 Flow Rate FiO2 04/01/17 08:30 Nasal Cannula 3.00 04/01/17 08:01 77 04/01/17 07:50 79 20 141/73 98 04/01/17 04:12 96.4 73 18 134/68 95 04/01/17 00:56 96.2 70 18 138/69 98 03/31/17 21:30 Nasal Cannula 3.00 03/31/17 20:20 96.0 71 19 148/71 100 03/31/17 20:13 70 03/31/17 20:10 Nasal Cannula 2.00 03/31/17 18:29 16 03/31/17 16:00 96.0 72 20 133/74 99 03/31/17 14:00 96.6 72 20 142/71 95 03/31/17 14:00 97.8 70 16 123/65 96 Nasal Cannula 2 03/31/17 13:45 70 15 126/62 99 Nasal Cannula 3 I/O 03/31/17 03/31/17 03/31/17 04/01/17 04/01/17 04/01/17 07:00 15:00 23:00 07:00 15:00 23:00 Intake Total 250 ml 0 ml 844 ml Output Total 1425 ml Balance 250 ml -1425 ml 844 ml Intake Oral 0 ml IV Total 50 ml 844 ml Other 200 ml Output Urine Total 1425 ml # Bowel Movements 3 0 Laboratory Laboratory Tests Test 03/31/17 20:21 White Blood Count 8.9 Red Blood Count 4.35 Hemoglobin 12.3 Hematocrit 37.0 Mean Corpuscular Volume 84.9 Mean Corpuscular Hemoglobin 28.3 Mean Corpuscular Hemoglobin 33.3 Concent Red Cell Distribution Width 20.3 Platelet Count 157 Mean Platelet Volume 6.9 Neutrophils (%) (Auto) 93.3 Lymphocytes (%) (Auto) 2.1 Monocytes (%) (Auto) 4.4 Eosinophils (%) (Auto) 0.1 Basophils (%) (Auto) 0.1 Neutrophils # (Auto) 8.3 Lymphocytes # (Auto) 0.2 Monocytes # (Auto) 0.4 Eosinophils # (Auto) 0.0 Basophils # (Auto) 0.0 CBC Comment DIFF FINAL Differential Comment Sodium Level 129 Potassium Level 4.0 Chloride Level 93 Carbon Dioxide Level 26.8 Anion Gap 9 Blood Urea Nitrogen 16 Creatinine 0.47 Estimat Glomerular Filtration 175 Rate Random Glucose 111 Calcium Level 7.6 Imaging Last Impressions Abdomen X-Ray 03/30/17 Signed Impressions: Service Date/Time: Thursday, March 30, 2017 15:03 - CONCLUSION: Some interval evacuation of the distal colon. Persistent dilation of the ascending and transverse colon with retained Gastrografin Otis Pereyra MD Enema w/Water Soluble 03/28/17 0000 Signed Impressions: Service Date/Time: Tuesday, March 28, 2017 10:28 - CONCLUSION: 1. Luminal narrowing of the sigmoid colon as described above. No evidence for obstruction. Earl Araujo MD Chest X-Ray 03/28/17 Signed Impressions: Service Date/Time: Tuesday, March 28, 2017 04:46 - CONCLUSION: No significant change. Otis Espitia MD Abdomen/Pelvis CT 03/27/17 0000 Signed Impressions: Service Date/Time: Monday, March 27, 2017 12:25 - CONCLUSION: 1. Dilatation of portions of the colon with large amount of barium present. This is most consistent with an ileus. 2. Multiple nonobstructing left renal calculi again noted. 3. Infiltrate in both lung bases as well as small effusions. 4. Gastrostomy tube in place. Burke Charles MD Catheter Change 03/26/17 Signed Impressions: Service Date/Time: February 15:10 - CONCLUSION: Uncomplicated gastrostomy tube exchange as above. Phillip Wheat MD Thoracic Spine CT 03/14/17 0000 Signed Impressions: Service Date/Time: Tuesday, March 14, 2017 16:31 - CONCLUSION: 1. There is a moderate compression deformity of T5 not significantly changed from CT in January. Osteopenia. Bilateral pleural effusions. Giorgio Maldonado MD Lumbar Spine CT 03/14/17 0000 Signed Impressions: Service Date/Time: Tuesday, March 14, 2017 16:31 - CONCLUSION: 1. Mild compression deformity of L1 which appears chronic. Osteopenia. No acute fracture seen. 2. Mild posterior disc protrusion at L5-S1, slightly worse on the left side with encroachment on the left lateral recess. Giorgio Maldonado MD CT Angiography 03/13/17 0000 Signed Impressions: Service Date/Time: Thursday, March 13, 2017 15:12 - CONCLUSION: Interval development of left lower lobe collapse secondary to endobronchial soft tissue density with intermixed air lucency having the appearance of mucous plugging and debris. Bilateral pleural effusions, consolidation and atelectasis. There is no evidence of pulmonary embolus. Earl Araujo MD Physical Exam HEENT: Normocephalic atraumatic. Throat is clear. CHEST: CTA, diminished bases. CARDIAC: RRR ABDOMEN: Abdomen distended but much softer, mild diffuse tenderness, no hepatosplenomegaly; bowel sounds EXTREMITIES: No clubbing, cyanosis, or edema. SKIN: Normal; no rash; no jaundice. MINI BACCARAT DEALER: No focal deficits; Lethargic (Isabella Burgess [employer] MED[employer] STAFF PHYSICIAN) Assessment and Plan Plan ASSESSMENT: - Colonic ileus with possible obstruction and dilated Cecum. Resolved. KUB (03/27)---> Very distended proximal colon, appears to be worse. Possible point of obstruction in the region of the splenic flexure. Chronically retained contrast in the colon likely an underlying diffuse ileus as well. Cecum 15 cm. NPO. Abdomen/Pelvis CT 03/27/17 0000 Signed-- Dilatation of portions of the colon with large amount of barium present. This is most consistent with an ileus. 2. Multiple nonobstructing left renal calculi again noted. 3. Infiltrate in both lung bases as well as small effusions. 4.Gastrostomy tube in place. Abdomen X-Ray 03/28/17--Probable sigmoid volvulus. The cecal distention is slightly improved compared to yesterday. Enema w/Water Soluble 03/28/17--1. Luminal narrowing of the sigmoid colon as described above. No evidence for obstruction. He did have several bowel movements after the gastrografin enema. However, he is quite distended today with mild diffuse tenderness. KUB (03/30/17)---> Some interval evacuation of the distal colon. Persistent dilation of the ascending and transverse colon with retained Gastrografin. S/P Decompressive colonoscopy (03/31/17)---> 1. Distended colon full of soft stool. Colon washed with water 2. Retroflexed views revealed internal hemorrhoid 3. Revealed external hemorrhoids. Clinically improved. He is NPO for procedure later today- plan is to have G tube converted to G/J tube. Clinically much improved. - Narrowing of the sigmoid colon on gastrografin enema. Sigmoidoscopy full of stool, but unremarkable as far as sigmoid, - Resp. Insufficiency, Aspiration PNA,COPD. Chest X-Ray (03/27/17)---> Worsening /developing consolidation on the left as above. Mild consolidation on the right stable. No significant change small, bilateral pleural effusions. Zosyn. CCM following. - Leukocytosis. WBC 14.0 on 03/28. Zosyn. - Dysphagia, Has Gastrostomy tube (exchanged 03/26 by IR). Was taking some liquids and TF via g tube. IR scheduled to convert this to G/J tube today. - Gastroparesis, GERD. PPI. - Atrial fibrillation. 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 Rdx per Dr. Casas, had #13/35. - Arthritis, Diabetes mellitus, Hypothyroidism, Major depressive disorder, Congestive heart failure, HTN per primary PLAN: - Okay to restart TF from GI standpoint, once G tube converted to G/J tube and okay with IR - PPI - Monitor labs - GI will sign off, please reconsult as needed - Patient seen and examined by Dr. Miranda and myself and this note is written on his behalf. (Isabella Burgess) Physician Comments Seen and examined with ELVIS, better after colon decompression. Advance TF as needed to meet goals. Bowel regimen. GI will sign off, reconsult as needed. Thank you (Becca Miranda MD) Isabella Burgess April 01, 2017 13:39 Becca Miranda MD April 01, 2017 14:47
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
[2017-04-01] MEDS ORDERED: LORazepam 2 MG/ML VIAL ONE (14:21)
[2017-04-01] MEDS ORDERED: fentaNYL CITRATE 250 MCG/5 ML AMP ONE (14:22)
[2017-04-01] MEDS ORDERED: MIDAZOLAM HCL 2 MG/2 ML VIAL ONE (14:47)
--- NOTE | 2017-04-01 15:44 | PD.RAD ---
Post Procedure Progress Note Pre Procedure Diagnosis: (1) Aspiration into airway (2) Gastroparesis (3) Squamous cell carcinoma of epiglottis Post Procedure Diagnosis: (1) Aspiration into airway (2) Gastroparesis (3) Squamous cell carcinoma of epiglottis Procedure Date: April 01, 2017 Supervising Radiologist: Anthony Alberto JR Proceduralist/Assist: Liset Day, RT(R)(), Dalia Sal RT(R)(CV) Anesthesia: Conscious Sedation Plan of Activity Patient to Unit: Critical Care Patient Condition: Good See PACS Report for procedural detail/treatment Feeding Tube G to GJ Conversion Urdu: 22 Findings: G tube converted to GJ tube. Tip in prox jejunum Jr. Remy,Anthony Carver MD April 01, 2017 15:44
[2017-04-01] MEDS ORDERED: IOHEXOL 350 MG/ML 50 ML BTL (for RAD DIAG) G-TUBE ONE (15:47)
--- NOTE | 2017-04-01 16:58 | RADRPT ---
EXAM DATE/TIME: 04/01/2017 13:49 [place] COMPARISON: No previous studies available for comparison. INDICATIONS : Patient is in need of a conversion from existing gastrostomy tube to transgastric G-J tube. Aspiratio n. MEDICAL HISTORY : History of gastroparesis, HTN, AFIB, COPD, squamous cell cancer of the epilglottis, DM. SURGICAL HISTORY : History of tonsillectomy, g-tube placement, cardiac ablation, hernia repair, cholecystectomy. ENCOUNTER: Subsequent ACUITY: 1 month PAIN SCORE: 0/10 FLUORO TIME: 20.53 minutes IMAGE SERIES: 2 SEDATION TIME: 40 minutes CONTRAST: 100 cc Omnipaque (iohexol) 350 MEDICATION(S): 1.) 2 mg midazolam (Versed) IV 2.) 250 mcg Fentanyl (Sublimaze) IV 3.) 2 mg lorazepam (Ativan) IV DEVICE(S): 1.) 22 Fr Transgastric tube PROCEDURE: 1. Fluoroscopically guided gastrostomy to gastrojejunostomy conversion 2. Conscious sedation with continuous EKG and oximetry monitoring. TECHNIQUE: Under sterile conditions and using aseptic technique a guidewire was passed through the previous mike rostomy tube and the wire was manipulated into the small bowel. The prescribed gastrojejunostomy tube was placed over the guidewire. The balloon was inflated with appropriate volume of saline. Injection of positive contrast demonstrates good position of the gastric and jejunal sections of the tube. Conscious sedation was performed with the prescribed dosages and duration as above in the presence of an independent trained radiology nurse to assist in the monitoring of the patient. EKG and oximetry remained stable throughout the procedure. CONCLUSION: Conversion of a gastrostomy tube to a gastrojejunostomy tube. The tip of the tube is in the proximal jejunum. Anthony Alberto Jr., MD on April 01, 2017 at 16:56 Board Certified Radiologist. This report was verified electronically.
[2017-04-01 18:47] LABS: BACTERIA, URINE RARE /hpf; BLOOD, URINE LARGE (NEG); COMMENT (UR) CULTURE INDICATED; CULTURE IF INDICATED CULTURE INDICATED; GLUCOSE,URINE NEG (NEG); KETONE, URINE NEG (NEG); MUCUS URINE FEW /lpf (OCC); NITRITE,URINE NEG (NEG); URINE COLOR YELLOW (YELLW/STRAW)
--- NOTE | 2017-04-01 19:59 | HHI.PR ---
Subjective Remarks 76 YOWm with COPD,Sq cell ca epiglotis, was on XRT Anxious at BS Feels hungry Had G tube changed to J tube Started TF Objective Vital Signs Vital Signs Date Time Temp Pulse Resp B/P Pulse Ox O2 Delivery O2 Flow Rate FiO2 04/01/17 18:03 98 21 04/01/17 16:30 96.7 74 20 166/88 100 04/01/17 16:29 72 18 98 04/01/17 16:00 97.6 75 18 138/82 96 04/01/17 15:50 97.6 75 18 138/82 96 04/01/17 11:50 96.0 72 20 145/78 96 04/01/17 08:30 Nasal Cannula 3.00 04/01/17 08:01 77 04/01/17 07:50 79 20 141/73 98 04/01/17 04:12 96.4 73 18 134/68 95 04/01/17 00:56 96.2 70 18 138/69 98 03/31/17 21:30 Nasal Cannula 3.00 03/31/17 20:20 96.0 71 19 148/71 100 03/31/17 20:13 70 03/31/17 20:10 Nasal Cannula 2.00 I/O 03/31/17 03/31/17 03/31/17 04/01/17 04/01/17 04/01/17 07:00 15:00 23:00 07:00 15:00 23:00 Intake Total 250 ml 0 ml 844 ml 0 ml Output Total 1425 ml 450 ml Balance 250 ml -1425 ml 844 ml -450 ml Intake Oral 0 ml 0 ml IV Total 50 ml 844 ml Other 200 ml Output Urine Total 1425 ml 450 ml Bladder Scan Volume Amount 627 ml # Bowel Movements 3 0 0 Result Diagram: 03/31/17202003/31/172020 Objective Remarks GENERAL: MBMN WM, NAD SKIN: Warm and dry. HEAD: Normocephalic. EYES: No scleral icterus. No injection or drainage. NECK: Supple, trachea midline. No JVD or lymphadenopathy. CARDIOVASCULAR: Regular rate and rhythm without murmurs, gallops, or rubs. RESPIRATORY: Breath sounds equal bilaterally. No accessory muscle use. GASTROINTESTINAL: Abdomen soft, non-tender, nondistended. MUSCULOSKELETAL: No cyanosis, or edema. BACK: Nontender without obvious deformity. No CVA tenderness. A/P Assessment and Plan COPD Lung Infilt Sq Cell ca Epiglotis DM Anxiety PLAN: DW pt and Cont Aerosol nebs Supplement 02 SQ Lovenox IVF Monitor BS Bimal Schwartz MD April 01, 2017 19:59
[2017-04-01] MEDS: ATORVASTATIN 40 MG TAB PO SCH (21:02)
[2017-04-01] MEDS: PANTOPRAZOLE SODIUM 40 MG VIAL IV PUSH SCH (21:02)
[2017-04-01] MEDS: DEXT 5%-NACL 0.45% 1000 ML INJ 1,000 ML IV SCH (21:04)
[2017-04-02] VITALS (8 sets, daily range): BP systolic 110–159; BP diastolic 58–80; PULSE 63–79; RESP 16–20; TEMP 96.3–97.4; O2SAT 91–100
[2017-04-02] MEDS: DILTIAZEM HCL 60 MG TAB PO SCH ×4 (00:37→17:19)
[2017-04-02] MEDS: PIPERACIL-TAZO 4.5 GM PREMIX 100 ML IV SCH ×4 (02:11→21:55)
[2017-04-02] MEDS: INSULIN NovoLIN REGULAR SUPPLEMENTAL SCALE SQ SCH ×4 (05:04→21:56)
[2017-04-02 06:57] LABS: BICARBONATE 31.8 MEQ/L (21.0-32.0); POTASSIUM 3.7 MEQ/L (3.5-5.1)
[2017-04-02 07:26] LABS: AUTOMATED NEUTROPHIL # 9.7 TH/MM3 (1.8-7.7); BASOPHIL % 0.5 % (0.0-2.0); EOSINOPHIL % 0.1 % (0.0-4.0); HEMATOCRIT 39.2 % (39.0-51.0); HEMO FLAGS DIFF FINAL; LYMPH % 1.4 % (9.0-44.0); LYMPHOCYTE # 0.1 TH/MM3 (1.0-4.8); MEAN CELL VOLUME 83.5 FL (80.0-100.0); MEAN CORPUSCULAR HEMOGLOBIN 28.2 PG (27.0-34.0); MEAN CORPUSCULAR HGB CONC 33.8 % (32.0-36.0); MONO % 5.1 % (0.0-8.0); NEUT % 92.9 % (16.0-70.0); PLATELET COUNT 132 TH/MM3 (150-450); RED CELL DISTRIBUTION WIDTH 20.6 % (11.6-17.2); WHITE BLOOD COUNT 10.4 TH/MM3 (4.0-11.0)
[2017-04-02] MEDS: predniSONE 20 MG TAB PO SCH ×2 (08:02→21:55)
[2017-04-02] MEDS: AMIODARONE 200 MG TAB PO SCH (08:02)
[2017-04-02] MEDS: TAMSULOSIN HCL 0.4 MG CAP PO SCH (08:02)
[2017-04-02] MEDS: RIVAROXABAN 20 MG TAB PO SCH (08:03)
[2017-04-02] MEDS: NYSTAT/DIPHENHY/LIDO MOUTHWASH (Adult) 120ML SWISH-SWAL SCH ×4 (08:03→19:58)
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
--- NOTE | 2017-04-02 12:47 | HHI.PR ---
Subjective Subjective Notes Just back from radiation but unable to complete radiation because patient was not feeling well at bedside; concerned that Mr. Santana has been so lethargic today; worried about UTI---she has also talked with Dr. Garcia about this Objective Vitals/I&O Vital Signs Date Time Temp Pulse Resp B/P Pulse Ox O2 Delivery O2 Flow Rate FiO2 04/02/17 11:08 98 Nasal Cannula 3.00 04/02/17 07:50 96.3 70 20 141/68 04/01/17 18:03 21 Labs Laboratory Tests Test 04/01/17 04/02/17 18:10 05:30 Urine Color YELLOW Urine Turbidity HAZY Urine pH 6.0 Urine Specific [place] 1.021 Urine Protein 30 Urine Glucose (UA) NEG Urine Ketones NEG Urine Occult Blood LARGE Urine Nitrite NEG Urine Bilirubin NEG Urine Urobilinogen LESS THAN 2.0 Urine Leukocyte Esterase LARGE Urine RBC 182 Urine WBC 60 Urine Amorphous Sediment RARE Urine Bacteria RARE Urine Mucus FEW Urine Yeast with Hyphae MOD Urine Yeast (Budding) MANY Microscopic Urinalysis Comment CULTURE INDICATED White Blood Count 10.4 Red Blood Count 4.70 Hemoglobin 13.3 Hematocrit 39.2 Mean Corpuscular Volume 83.5 Mean Corpuscular Hemoglobin 28.2 Mean Corpuscular Hemoglobin 33.8 Concent Red Cell Distribution Width 20.6 Platelet Count 132 Mean Platelet Volume 6.8 Neutrophils (%) (Auto) 92.9 Lymphocytes (%) (Auto) 1.4 Monocytes (%) (Auto) 5.1 Eosinophils (%) (Auto) 0.1 Basophils (%) (Auto) 0.5 Neutrophils # (Auto) 9.7 Lymphocytes # (Auto) 0.1 Monocytes # (Auto) 0.5 Eosinophils # (Auto) 0.0 Basophils # (Auto) 0.0 CBC Comment DIFF FINAL Differential Comment Sodium Level 132 Potassium Level 3.7 Chloride Level 92 Carbon Dioxide Level 31.8 Anion Gap 8 Blood Urea Nitrogen 13 Creatinine 0.50 Estimat Glomerular Filtration 163 Rate Random Glucose 153 Calcium Level 7.9 Date/Time Procedure Status Source Growth 04/01/17 18:10 Urine Culture Received Urine Clean Catch Pending Radiology Last 48 hours Impressions Chest X-Ray 03/27/17 0000 Signed Impressions: Service Date/Time: Monday, March 27, 2017 00:42 - CONCLUSION: Worsening/developing consolidation on the left as above. Mild consolidation on the right stable. No significant change small, bilateral pleural effusions. Otis Espitia MD Abdomen/Pelvis CT 03/27/17 Signed Impressions: Service Date/Time: Monday, March 27, 2017 12:25 - CONCLUSION: 1. Dilatation of portions of the colon with large amount of barium present. This is most consistent with an ileus. 2. Multiple nonobstructing left renal calculi again noted. 3. Infiltrate in both lung bases as well as small effusions. 4. Gastrostomy tube in place. Burke Charles MD Abdomen X-Ray 03/27/17 Signed Impressions: Service Date/Time: Monday, March 27, 2017 03:19 - CONCLUSION: Very distended proximal colon, appears to be worse. Possible point of obstruction in the region of the splenic flexure. Chronically retained contrast in the colon likely an underlying diffuse ileus as well. Otis Espitia MD Catheter Change 03/26/17 Signed Impressions: Service Date/Time: February 15:10 - CONCLUSION: Uncomplicated gastrostomy tube exchange as above. Phillip Wheat MD Cardiovascular: Regular Lungs: Clear Abdomen: Other (soft; non distended; GJ tube in place with TF with no complications ) Extremities: Other (generalized edema ) A/P Assessment and Plan 76 year old male with colonic distension, likely contrast ileus, now with BM and gas after gastrografin contrast enema. -Abdominal exam much improved s/p decompressive colonoscopy -UTI---Dr. Garcia managing -TF through GJ tube -No acute GS issues at this time; GS will sign off but please call with any questions Attending Statement The exam, history, and the medical decision-making described in the above note were completed with the assistance of the mid-level provider. I reviewed and agree with the findings presented. I attest that I had a [id number] encounter with the patient on the same day, and personally performed and documented my assessment and findings in the medical record. Abdominal exam stable, no tenderness on exam, no rebound tenderness or peritonitis continue supportive care Gege Salcedo April 02, 2017 12:47 Bubba Llanos MD April 28, 2017 16:04
[2017-04-02] MEDS: cefTRIAXone INJ 1,000 MG in SODIUM CHLORIDE 0.9% INJ 100 ML IV SCH (13:04)
[2017-04-02] MEDS: ONDANSETRON HCL 4 MG/2 ML VIAL IV PUSH PRN (13:05)
--- NOTE | 2017-04-02 16:33 | HHI.PR ---
Subjective Remarks 76 YOWm with COPD,Sq cell ca epiglotis, was on XRT Anxious at BS Feels hungry Had G tube changed to J tube tolerates TF Very lethargic Objective Vital Signs Vital Signs Date Time Temp Pulse Resp B/P Pulse Ox O2 Delivery O2 Flow Rate FiO2 04/02/17 11:50 96.5 63 20 99 04/02/17 11:08 98 Nasal Cannula 3.00 04/02/17 08:00 3.00 04/02/17 07:50 96.3 70 20 141/68 100 04/02/17 04:00 97.1 69 18 159/80 100 04/02/17 00:00 96.6 69 18 132/70 100 04/01/17 21:03 100 Nasal Cannula 3.00 04/01/17 21:00 97.0 70 18 149/70 100 04/01/17 20:10 65 04/01/17 18:03 98 21 I/O 04/01/17 04/01/17 04/01/17 04/02/17 04/02/17 04/02/17 07:00 15:00 23:00 07:00 15:00 23:00 Intake Total 844 ml 0 ml Output Total 450 ml 650 ml 850 ml Balance 844 ml -450 ml -650 ml -850 ml Intake Oral 0 ml IV Total 844 ml Output Urine Total 450 ml 650 ml 850 ml Bladder Scan Volume Amount 627 ml 627 ml # Bowel Movements 0 Result Diagram: 04/02/17 0530 04/02/17 0530 Objective Remarks GENERAL: MBMN WM, NAD SKIN: Warm and dry. HEAD: Normocephalic. EYES: No scleral icterus. No injection or drainage. NECK: Supple, trachea midline. No JVD or lymphadenopathy. CARDIOVASCULAR: Regular rate and rhythm without murmurs, gallops, or rubs. RESPIRATORY: Breath sounds equal bilaterally. No accessory muscle use. GASTROINTESTINAL: Abdomen soft, non-tender, nondistended. MUSCULOSKELETAL: No cyanosis, or edema. BACK: Nontender without obvious deformity. No CVA tenderness. A/P Assessment and Plan COPD Lung Infilt Sq Cell ca Epiglotis DM Anxiety PLAN: DW pt and Cont Aerosol nebs Supplement 02 SQ Lovenox IVF Monitor BS TF Will check ABG Bimal Borden MD April 02, 2017 16:33
[2017-04-02 17:25] LABS: BLOOD GAS BASE EXCESS 9.1 mmol/L (-2-2); BLOOD GAS HCO3 33 mmol/L (22-26); BLOOD GAS METHEMOGLOBIN 1.1 % (0-2); BLOOD GAS O2 HGB SATURATION 92 % (90-100); BLOOD GAS OXYGEN CONTENT 16.7 Vol % (12.0-20.0); BLOOD GAS PCO2 43 mmHg (38-42); BLOOD GAS PO2 68 mmHg (61-120); BLOOD GAS TOTAL HGB 12.8 G/DL (12.0-16.0); CRITICAL VALUE NO; TEMP CORR TO 98.6
[2017-04-02 17:26] LABS: DRAW SITE RT RADIAL; FIO2 21 %; NUMBER OF ARTERIAL PUNCTURES 1; OXYGEN DEVICE ROOM AIR; STAT NO; ULNAR PULSE PRESENT
--- NOTE | 2017-04-02 18:04 | HHI.HCPN ---
Reason for visit a. To assist with evaluation and management of symptoms including: weakness , pain, anxiety. b. To assist medical decision maker(s) with: better understanding of current medical conditions; weighing benefits/burdens of medical treatment options; making medical treatment decisions. . Subjective/Interval History Patient seen and examined in room with at bedside. He is lethargic today has not really woken up much since yesterday per . He is arousable and answers some questions for me today, falls off to sleep easily. Denies pain, feels hungry asking for food. Remains NPO. Radiation held. G/J tube placed , tube feeding at 35. + UTI, yeast species. Afebrile. Vital signs stable. On room air, no respiratory distress. . Family/friend interactions is not ready to make decision on code status as she wants to "talk to him first." . Advance Directives Living Will: Never completed Health Care Surrogate: Copy in medical record Durable Power of Home Health Occupational Therapist: Never completed Advance Directive Specifics Date completed: 02/18/17 . Health Care Surrogate(s): Designated health care surrogate is Dana Santana and alternate surrogate is Lenora Matos. . Significant change in goals: FULL CODE. Goals remain aggressive. . Objective Vital Signs Date Time Temp Pulse Resp B/P Pulse Ox O2 Delivery O2 Flow Rate FiO2 04/02/17 15:50 97.4 77 20 127/66 91 04/02/17 11:50 96.5 63 20 99 04/02/17 11:08 98 Nasal Cannula 3.00 04/02/17 08:00 3.00 04/02/17 07:50 96.3 70 20 141/68 100 04/02/17 04:00 97.1 69 18 159/80 100 04/02/17 00:00 96.6 69 18 132/70 100 04/01/17 21:03 100 Nasal Cannula 3.00 04/01/17 21:00 97.0 70 18 149/70 100 04/01/17 20:10 65 04/01/17 18:03 98 21 Intake & Output 04/02/17 04/02/17 07:00 19:00 Output Total 1500 ml Balance -1500 ml Output Urine Total 1500 ml Bladder Scan Volume Amount 627 ml Physical Exam CONSTITUTIONAL/GENERAL: This is an thin, frail, lethargic male, in no apparent distress. TUBES/LINES/DRAINS: NC, PEG tube, Zacarias, specialty bed. SKIN: No jaundice, rashes, or lesions. Ecchymoses on upper extremities. No wounds seen anteriorly. Skin temperature appropriate. Not diaphoretic. CARDIOVASCULAR: Regular rate and rhythm without murmurs, gallops, or rubs. RESPIRATORY/CHEST: Symmetric, unlabored respirations. Diminished breath sounds. GASTROINTESTINAL: Abdomen soft, non-tender, nondistended. PEG tube clamped. Bowel sounds +. GENITOURINARY: Without palpable bladder distension. Zacarias catheter in place. MUSCULOSKELETAL: Extremities without clubbing, cyanosis, or edema. No mottling or clubbing. NEUROLOGICAL: Awakens briefly, asks for food intermittently. confused. Moves all extremities. PSYCHIATRIC: lethargic. . Diagnostic Tests Laboratory Laboratory Tests Test 03/31/17 04/01/17 04/02/17 04/02/17 20:21 18:10 05:14 05:30 White Blood Count 8.9 TH/MM3 10.4 TH/MM3 (4.0-11.0) (4.0-11.0) Red Blood Count 4.35 MIL/MM3 4.70 MIL/MM3 (4.50-5.90) (4.50-5.90) Hemoglobin 12.3 GM/DL 13.3 GM/DL (13.0-17.0) (13.0-17.0) Hematocrit 37.0 % 39.2 % (39.0-51.0) (39.0-51.0) Mean Corpuscular Volume 84.9 FL 83.5 FL (80.0-100.0) (80.0-100.0) Mean Corpuscular Hemoglobin 28.3 PG 28.2 PG (27.0-34.0) (27.0-34.0) Mean Corpuscular Hemoglobin 33.3 % 33.8 % Concent (32.0-36.0) (32.0-36.0) Red Cell Distribution Width 20.3 % 20.6 % (11.6-17.2) (11.6-17.2) Platelet Count 157 TH/MM3 132 TH/MM3 (150-450) (150-450) Mean Platelet Volume 6.9 FL 6.8 FL (7.0-11.0) (7.0-11.0) Neutrophils (%) (Auto) 93.3 % 92.9 % (16.0-70.0) (16.0-70.0) Lymphocytes (%) (Auto) 2.1 % 1.4 % (9.0-44.0) (9.0-44.0) Monocytes (%) (Auto) 4.4 % (0.0-8.0) 5.1 % (0.0-8.0) Eosinophils (%) (Auto) 0.1 % (0.0-4.0) 0.1 % (0.0-4.0) Basophils (%) (Auto) 0.1 % (0.0-2.0) 0.5 % (0.0-2.0) Neutrophils # (Auto) 8.3 TH/MM3 9.7 TH/MM3 (1.8-7.7) (1.8-7.7) Lymphocytes # (Auto) 0.2 TH/MM3 0.1 TH/MM3 (1.0-4.8) (1.0-4.8) Monocytes # (Auto) 0.4 TH/MM3 0.5 TH/MM3 (0-0.9) (0-0.9) Eosinophils # (Auto) 0.0 TH/MM3 0.0 TH/MM3 (0-0.4) (0-0.4) Basophils # (Auto) 0.0 TH/MM3 0.0 TH/MM3 (0-0.2) (0-0.2) CBC Comment DIFF FINAL DIFF FINAL Differential Comment Sodium Level 129 MEQ/L 132 MEQ/L (136-145) (136-145) Potassium Level 4.0 MEQ/L 3.7 MEQ/L (3.5-5.1) (3.5-5.1) Chloride Level 93 MEQ/L 92 MEQ/L (98-107) (98-107) Carbon Dioxide Level 26.8 MEQ/L 31.8 MEQ/L (21.0-32.0) (21.0-32.0) Anion Gap 9 MEQ/L (5-15) 8 MEQ/L (5-15) Blood Urea Nitrogen 16 MG/DL (7-18) 13 MG/DL (7-18) Creatinine 0.47 MG/DL 0.50 MG/DL (0.60-1.30) (0.60-1.30) Estimat Glomerular Filtration 175 ML/MIN 163 ML/MIN Rate (>89) (>89) Random Glucose 111 MG/DL 153 MG/DL (74-106) (74-106) Calcium Level 7.6 MG/DL 7.9 MG/DL (8.5-10.1) (8.5-10.1) Urine Color YELLOW (YELLW/STRAW) Urine Turbidity HAZY (CLEAR) Urine pH 6.0 (5.0-8.5) Urine Specific [place] 1.021 (1.002-1.035) Urine Protein 30 mg/dL (NEG-TRACE) Urine Glucose (UA) NEG mg/dL (NEG) Urine Ketones NEG mg/dL (NEG) Urine Occult Blood LARGE (NEG) Urine Nitrite NEG (NEG) Urine Bilirubin NEG (NEG) Urine Urobilinogen LESS THAN 2.0 MG/DL (LESS THAN 2.0) Urine Leukocyte Esterase LARGE (NEG) Urine RBC 182 /hpf (0-3) Urine WBC 60 /hpf (0-5) Urine Amorphous Sediment RARE Urine Bacteria RARE /hpf (NONE) Urine Mucus FEW /lpf (OCC) Urine Yeast with Hyphae MOD (NONE) Urine Yeast (Budding) MANY (NONE) Microscopic Urinalysis Comment CULTURE INDICATED Blood Gas Puncture Site RT RADIAL Blood Gas Patient Temperature 98.6 Blood Gas HCO3 33 mmol/L (22-26) Blood Gas Base Excess 9.1 mmol/L (-2-2) Blood Gas Oxygen Saturation 92 % (90-100) Arterial Blood pH 7.50 (7.380-7.420) Arterial Blood Partial 43 mmHg (38-42) Pressure CO2 Arterial Blood Partial 68 mmHg Pressure O2 (61-120) Arterial Blood Oxygen Content 16.7 Vol % (12.0-20.0) Arterial Blood 2.0 % (0-4) Carboxyhemoglobin Arterial Blood Methemoglobin 1.1 % (0-2) Blood Gas Hemoglobin 12.8 G/DL (12.0-16.0) Oxygen Delivery Device ROOM AIR Blood Gas Inspired Oxygen 21 % Result Diagram: 04/02/1730 04/02/17529 Microbiology Microbiology Date/Time Procedure Status Source Growth 04/01/17 18:10 Urine Culture - Preliminary Resulted Urine Clean Catch Yeast Species Imaging Last Impressions Gastrostomy Tube Change 04/01/17 0000 Signed Impressions: Service Date/Time: Saturday, April 01, 2017 13:49 - CONCLUSION: Conversion of a gastrostomy tube to a gastrojejunostomy tube. The tip of the tube is in the proximal jejunum. Anthony Alberto Jr., MD Abdomen X-Ray 03/30/17 0000 Signed Impressions: Service Date/Time: Thursday, March 30, 2017 15:03 - CONCLUSION: Some interval evacuation of the distal colon. Persistent dilation of the ascending and transverse colon with retained Gastrografin Otis Pereyra MD Enema w/Water Soluble 03/28/17 0000 Signed Impressions: Service Date/Time: Tuesday, March 28, 2017 10:28 - CONCLUSION: 1. Luminal narrowing of the sigmoid colon as described above. No evidence for obstruction. Earl Araujo MD Chest X-Ray 03/28/17 0000 Signed Impressions: Service Date/Time: Tuesday, March 28, 2017 04:46 - CONCLUSION: No significant change. Otis Espitia MD Abdomen/Pelvis CT 03/27/17 0000 Signed Impressions: Service Date/Time: Monday, March 27, 2017 12:25 - CONCLUSION: 1. Dilatation of portions of the colon with large amount of barium present. This is most consistent with an ileus. 2. Multiple nonobstructing left renal calculi again noted. 3. Infiltrate in both lung bases as well as small effusions. 4. Gastrostomy tube in place. Burke Charles MD Catheter Change 03/26/17 0000 Signed Impressions: Service Date/Time: February 15:10 - CONCLUSION: Uncomplicated gastrostomy tube exchange as above. Phillip Wheat MD Thoracic Spine CT 03/14/17 0000 Signed Impressions: Service Date/Time: Tuesday, March 14, 2017 16:31 - CONCLUSION: 1. There is a moderate compression deformity of T5 not significantly changed from CT in January. Osteopenia. Bilateral pleural effusions. Giorgio Maldonado MD Lumbar Spine CT 03/14/17 0000 Signed Impressions: Service Date/Time: Tuesday, March 14, 2017 16:31 - CONCLUSION: 1. Mild compression deformity of L1 which appears chronic. Osteopenia. No acute fracture seen. 2. Mild posterior disc protrusion at L5-S1, slightly worse on the left side with encroachment on the left lateral recess. Giorgio Maldonado MD CT Angiography 03/13/17 0000 Signed Impressions: Service Date/Time: Monday, March 13, 2017 15:12 - CONCLUSION: Interval development of left lower lobe collapse secondary to endobronchial soft tissue density with intermixed air lucency having the appearance of mucous plugging and debris. Bilateral pleural effusions, consolidation and atelectasis. There is no evidence of pulmonary embolus. Earl Araujo MD Procedures * 03/31/17 - sigmoidoscopy. Assessment and Plan Disease Oriented Problem List: (1) Gastroparesis (2) Squamous cell carcinoma of epiglottis (3) Nausea and vomiting (4) DM (diabetes mellitus) (5) Pneumonia (6) Depression (7) Failure to thrive in adult Symptom Scale: (1) Generalized weakness 0-10 Scale: Unable to quantify Comment: bedbound since December 2016. (2) Depression 0-10 Scale: Unable to quantify Comment: Off Effexor, recommend restarting KATHERINE. (3) Pain 0-10 Scale: Unable to quantify Comment: due to malignancy, chronic back pain, bedbound status, etc. On Fentanyl patch 50 and PRN Dilaudid. Will monitor. . (4) Anxiety 0-10 Scale: Unable to quantify Pertinent Non-Medical Issues Psychosocial: Primary local psychosocial support is from his spouse. He has his own children in [place] and [place] Spiritual: [employer]. Legal: No advance directives. would be proxy if patient becomes incapacitate. Ethical issues impacting care: Patient is currently capacitated to make his own health care decisions. . Important Contacts * Dana Santana (spouse) [phone]; [phone] * Lenora Matos (daughter) [phone] . Prognosis Patient has had 7 hospitalizations since November 2016, he has general debility, failure to thrive and multiple medical comorbidities, he has an early SCC of the epiglottis that per radiation oncology is potentially curable if he is able to get and survive treatment. . Code Status: Full Code Plan * Designated health care surrogate is Dana Santana and alternate surrogate is Lenora Matos. * FULL CODE - considering DNR, not yet ready. * Palliative care met with , pt does not participate due to confusion/; lethargy: In summary, desires continued aggressive, not ready to make DNR decision as she is hoping to talk to him about it. * SYMPTOMS: Pain:chronic pain in back, due to malignancy, chronic back pain, bedbound status, etc. On Fentanyl patch 50 and PRN Dilaudid. Will monitor. .Decreased appetite: secondary to malignancy. Plan for G/J tube placement. NPO for aspiration and procedures. Repeat speech eval 04/02. Weakness: due to comorbidities, cancer and frequent hospitalizations. * Palliative care will continue to follow throughout hospital course to assist with symptom management and clarification of goals as needed. . Attestation To help prompt me to consider important information that might be impacting today's encounter and assessment, information from prior notes written by myself or my colleagues may have been "brought forward" into today's note. My signature on this note, however, is an attestation that I personally performed the exam, history, and/or decision-making noted today, and, unless otherwise indicated, the interactions with patient, family, and staff as well as the review of records all occurred today. I also attest that the listed assessment and stated plan reflect my best clinical judgment today based on the combination of historical information, prior notes, and today's exam/ interactions. When time spent is documented, it refers only to time spent today by the signer, or if indicated, combined time spent today by collaborating physician/nurse practitioner. JESSA JOSEPH April 02, 2017 18:04
[2017-04-02] MEDS: MORPHINE SULFATE 15 MG TAB PO PRN (18:37)
[2017-04-02] MEDS: HYDROmorphone HCL PF 1 MG/ML VIAL IV PRN (21:54)
[2017-04-02] MEDS: ATORVASTATIN 40 MG TAB PO SCH (21:55)
[2017-04-02] MEDS: PANTOPRAZOLE SODIUM 40 MG VIAL IV PUSH SCH (21:55)
[2017-04-03] VITALS (7 sets, daily range): BP systolic 124–161; BP diastolic 58–81; PULSE 77–90; RESP 16–21; TEMP 96–97.6; O2SAT 91–98
[2017-04-03] MEDS: REMOVE OLD PATCH-FENTANYL T-DERMAL SCH (00:23)
[2017-04-03] MEDS: DILTIAZEM HCL 60 MG TAB PO SCH ×4 (00:31→18:00)
[2017-04-03] MEDS: MORPHINE SULFATE 15 MG TAB PO PRN ×4 (00:31→19:47)
[2017-04-03] MEDS: fentaNYL 25 MCG/HR PATCH T-DERMAL SCH (00:45)
[2017-04-03] MEDS ORDERED: fentaNYL 25 MCG/HR PATCH T-DERMAL SCH (01:00)
[2017-04-03] MEDS: PIPERACIL-TAZO 4.5 GM PREMIX 100 ML IV SCH ×4 (02:10→19:48)
[2017-04-03] MEDS ORDERED: HYDROmorphone HCL PF 1 MG/ML VIAL IV PUSH ONE (02:15)
[2017-04-03] MEDS: HYDROmorphone HCL PF 1 MG/ML VIAL IV PRN ×4 (04:27→22:26)
[2017-04-03] MEDS: INSULIN NovoLIN REGULAR SUPPLEMENTAL SCALE SQ SCH ×4 (06:33→21:53)
[2017-04-03] MEDS: predniSONE 20 MG TAB PO SCH ×2 (07:47→21:53)
[2017-04-03] MEDS: TAMSULOSIN HCL 0.4 MG CAP PO SCH (07:48)
[2017-04-03] MEDS: AMIODARONE 200 MG TAB PO SCH (07:48)
[2017-04-03] MEDS: RIVAROXABAN 20 MG TAB PO SCH (07:48)
[2017-04-03] MEDS: NYSTAT/DIPHENHY/LIDO MOUTHWASH (Adult) 120ML SWISH-SWAL SCH ×4 (07:48→21:00)
[2017-04-03] MEDS: BISACODYL 10 MG SUPP RECTAL PRN (10:34)
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
[2017-04-03] MEDS: cefTRIAXone INJ 1,000 MG in SODIUM CHLORIDE 0.9% INJ 100 ML IV SCH (11:56)
[2017-04-03] MEDS: LORazepam 1 MG TAB PEG PRN (11:56)
[2017-04-03] MEDS: METOCLOPRAMIDE HCL 10 MG/2 ML VIAL IV PUSH PRN (11:57)
[2017-04-03] MEDS: SENNOSIDES 8.6 MG TAB PO PRN (14:02)
--- NOTE | 2017-04-03 17:38 | HHI.HCPN ---
Reason for visit a. To assist with evaluation and management of symptoms including: weakness , pain, anxiety. b. To assist medical decision maker(s) with: better understanding of current medical conditions; weighing benefits/burdens of medical treatment options; making medical treatment decisions. . (JESSA JOSEPH) Subjective/Interval History Patient seen and examined in room with at bedside. called me upset as patient has been awake all night. She reports he is afraid to be alone, reports pain and anxiety. He tells me he has "pain all over" unable to further quantify or qualify. He tells me he is paralyzed. I explained he is weak, but not paralyzed, he is able to move all extremities. He is confused. He is begging me to put him out, stating he needs to sleep and wants to be comfortable. I attempted to clarify goals with patient, he does not have insight or judgement into his overall clinical health condition or prognosis. continues to hope she will be able to have a conversation with patient about end of life wishes, I advised I do not feel this is going to be possible based on my assessments throughout the week. She is not ready to consider NO CODE again today. I left [place] DNR at bedside incase she elects DNR over the weekend. She verbalizes decline but remains very hopeful for recovery. He continues to fall off to sleep easily. Feels hungry asking for food. Remains NPO. Discussed with GI, was advised patient is able to eat with G/J tube as long as cleared by speech therapy. 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 Patient continues to BEG for food. Nurse advised of my conversation with GI. Tolerating tube feeding. + UTI, yeast. Afebrile. Vital signs stable. On oxygen via NC. . Family/friend interactions See interval note. . (JESSA JOSEPH) Advance Directives Living Will: Never completed Health Care Surrogate: Copy in medical record Durable Power of Acute Coordinator: Never completed (JESSA JOSEPH) Advance Directive Specifics Date completed: 02/18/17 . Health Care Surrogate(s): Designated health care surrogate is aDna Santana and alternate surrogate is Lenora Matos. . Significant change in goals: FULL CODE. Desires continued aggressive care. . (JESSA JOSEPH) Objective Vital Signs Date Time Temp Pulse Resp B/P Pulse Ox O2 Delivery O2 Flow Rate FiO2 04/03/17 16:00 96.2 81 18 140/80 98 04/03/17 12:00 96.2 80 153/72 92 04/03/17 09:43 96 Nasal Cannula 1.00 04/03/17 08:05 3.00 04/03/17 08:00 97.2 78 16 125/58 98 04/03/17 04:00 97.0 82 18 135/68 91 04/03/17 00:00 97.6 77 16 124/72 94 04/02/17 21:56 Room Air 04/02/17 21:17 21 04/02/17 20:00 97.2 79 16 110/58 94 04/02/17 20:00 78 04/02/17 18:27 79 131/70 Intake & Output 04/03/17 04/03/17 07:00 19:00 Intake Total 0 ml Output Total 300 ml 400 ml Balance -300 ml -400 ml Intake Oral 0 ml Output Urine Total 300 ml 400 ml # Bowel Movements 1 Physical Exam CONSTITUTIONAL/GENERAL: This is an thin, frail, lethargic male, in no apparent distress. TUBES/LINES/DRAINS: NC, PIV, G/J tube, specialty bed. SKIN: No jaundice, rashes, or lesions. Ecchymoses on upper extremities. No wounds seen anteriorly. Skin temperature appropriate. Not diaphoretic. CARDIOVASCULAR: Regular rate and rhythm without murmurs, gallops, or rubs. RESPIRATORY/CHEST: Symmetric, unlabored respirations. Diminished breath sounds. GASTROINTESTINAL: Abdomen soft, non-tender, nondistended. G/J tube. Bowel sounds +. GENITOURINARY: Without palpable bladder distension. MUSCULOSKELETAL: Extremities without clubbing, cyanosis, or edema. No mottling or clubbing. NEUROLOGICAL: Awakens briefly, asks for food intermittently. confused. Moves all extremities. PSYCHIATRIC: verbalizes being lonely and afraid to be alone. . (JESSA JOSEPH) Diagnostic Tests Laboratory Laboratory Tests Test 03/31/17 04/01/17 04/02/17 04/02/17 20:21 18:10 05:14 05:30 White Blood Count 8.9 TH/MM3 10.4 TH/MM3 (4.0-11.0) (4.0-11.0) Red Blood Count 4.35 MIL/MM3 4.70 MIL/MM3 (4.50-5.90) (4.50-5.90) Hemoglobin 12.3 GM/DL 13.3 GM/DL (13.0-17.0) (13.0-17.0) Hematocrit 37.0 % 39.2 % (39.0-51.0) (39.0-51.0) Mean Corpuscular Volume 84.9 FL 83.5 FL (80.0-100.0) (80.0-100.0) Mean Corpuscular Hemoglobin 28.3 PG 28.2 PG (27.0-34.0) (27.0-34.0) Mean Corpuscular Hemoglobin 33.3 % 33.8 % Concent (32.0-36.0) (32.0-36.0) Red Cell Distribution Width 20.3 % 20.6 % (11.6-17.2) (11.6-17.2) Platelet Count 157 TH/MM3 132 TH/MM3 (150-450) (150-450) Mean Platelet Volume 6.9 FL 6.8 FL (7.0-11.0) (7.0-11.0) Neutrophils (%) (Auto) 93.3 % 92.9 % (16.0-70.0) (16.0-70.0) Lymphocytes (%) (Auto) 2.1 % 1.4 % (9.0-44.0) (9.0-44.0) Monocytes (%) (Auto) 4.4 % (0.0-8.0) 5.1 % (0.0-8.0) Eosinophils (%) (Auto) 0.1 % (0.0-4.0) 0.1 % (0.0-4.0) Basophils (%) (Auto) 0.1 % (0.0-2.0) 0.5 % (0.0-2.0) Neutrophils # (Auto) 8.3 TH/MM3 9.7 TH/MM3 (1.8-7.7) (1.8-7.7) Lymphocytes # (Auto) 0.2 TH/MM3 0.1 TH/MM3 (1.0-4.8) (1.0-4.8) Monocytes # (Auto) 0.4 TH/MM3 0.5 TH/MM3 (0-0.9) (0-0.9) Eosinophils # (Auto) 0.0 TH/MM3 0.0 TH/MM3 (0-0.4) (0-0.4) Basophils # (Auto) 0.0 TH/MM3 0.0 TH/MM3 (0-0.2) (0-0.2) CBC Comment DIFF FINAL DIFF FINAL Differential Comment Sodium Level 129 MEQ/L 132 MEQ/L (136-145) (136-145) Potassium Level 4.0 MEQ/L 3.7 MEQ/L (3.5-5.1) (3.5-5.1) Chloride Level 93 MEQ/L 92 MEQ/L (98-107) (98-107) Carbon Dioxide Level 26.8 MEQ/L 31.8 MEQ/L (21.0-32.0) (21.0-32.0) Anion Gap 9 MEQ/L (5-15) 8 MEQ/L (5-15) Blood Urea Nitrogen 16 MG/DL (7-18) 13 MG/DL (7-18) Creatinine 0.47 MG/DL 0.50 MG/DL (0.60-1.30) (0.60-1.30) Estimat Glomerular Filtration 175 ML/MIN 163 ML/MIN Rate (>89) (>89) Random Glucose 111 MG/DL 153 MG/DL (74-106) (74-106) Calcium Level 7.6 MG/DL 7.9 MG/DL (8.5-10.1) (8.5-10.1) Urine Color YELLOW (YELLW/STRAW) Urine Turbidity HAZY (CLEAR) Urine pH 6.0 (5.0-8.5) Urine Specific [place] 1.021 (1.002-1.035) Urine Protein 30 mg/dL (NEG-TRACE) Urine Glucose (UA) NEG mg/dL (NEG) Urine Ketones NEG mg/dL (NEG) Urine Occult Blood LARGE (NEG) Urine Nitrite NEG (NEG) Urine Bilirubin NEG (NEG) Urine Urobilinogen LESS THAN 2.0 MG/DL (LESS THAN 2.0) Urine Leukocyte Esterase LARGE (NEG) Urine RBC 182 /hpf (0-3) Urine WBC 60 /hpf (0-5) Urine Amorphous Sediment RARE Urine Bacteria RARE /hpf (NONE) Urine Mucus FEW /lpf (OCC) Urine Yeast with Hyphae MOD (NONE) Urine Yeast (Budding) MANY (NONE) Microscopic Urinalysis Comment CULTURE INDICATED Blood Gas Puncture Site RT RADIAL Blood Gas Patient Temperature 98.6 Blood Gas HCO3 33 mmol/L (22-26) Blood Gas Base Excess 9.1 mmol/L (-2-2) Blood Gas Oxygen Saturation 92 % (90-100) Arterial Blood pH 7.50 (7.380-7.420) Arterial Blood Partial 43 mmHg (38-42) Pressure CO2 Arterial Blood Partial 68 mmHg Pressure O2 (61-120) Arterial Blood Oxygen Content 16.7 Vol % (12.0-20.0) Arterial Blood 2.0 % (0-4) Carboxyhemoglobin Arterial Blood Methemoglobin 1.1 % (0-2) Blood Gas Hemoglobin 12.8 G/DL (12.0-16.0) Oxygen Delivery Device ROOM AIR Blood Gas Inspired Oxygen 21 % (JESSA JOSEPH) Result Diagram: 04/02/1730 04/02/17 0530 Microbiology Microbiology Date/Time Procedure Status Source Growth 04/01/17 18:10 Urine Culture - Final Complete Urine Clean Catch Sunitha Albicans Sunitha Glabrata Imaging Last Impressions Gastrostomy Tube Change 04/01/17 0000 Signed Impressions: Service Date/Time: Saturday, April 01, 2017 13:49 - CONCLUSION: Conversion of a gastrostomy tube to a gastrojejunostomy tube. The tip of the tube is in the proximal jejunum. Anthony Alberto Jr., MD Abdomen X-Ray 03/30/17 0000 Signed Impressions: Service Date/Time: Thursday, March 30, 2017 15:03 - CONCLUSION: Some interval evacuation of the distal colon. Persistent dilation of the ascending and transverse colon with retained Gastrografin Otis Pereyra MD Enema w/Water Soluble 03/28/17 0000 Signed Impressions: Service Date/Time: Tuesday, March 28, 2017 10:28 - CONCLUSION: 1. Luminal narrowing of the sigmoid colon as described above. No evidence for obstruction. Earl Araujo MD Chest X-Ray 03/28/17 0000 Signed Impressions: Service Date/Time: Tuesday, March 28, 2017 04:46 - CONCLUSION: No significant change. Otis Espitia MD Abdomen/Pelvis CT 03/27/17 0000 Signed Impressions: Service Date/Time: Monday, March 27, 2017 12:25 - CONCLUSION: 1. Dilatation of portions of the colon with large amount of barium present. This is most consistent with an ileus. 2. Multiple nonobstructing left renal calculi again noted. 3. Infiltrate in both lung bases as well as small effusions. 4. Gastrostomy tube in place. Burke Charles MD Catheter Change 03/26/17 0000 Signed Impressions: Service Date/Time: February 15:10 - CONCLUSION: Uncomplicated gastrostomy tube exchange as above. Phillip Wheat MD Thoracic Spine CT 03/14/17 0000 Signed Impressions: Service Date/Time: Tuesday, March 14, 2017 16:31 - CONCLUSION: 1. There is a moderate compression deformity of T5 not significantly changed from CT in January. Osteopenia. Bilateral pleural effusions. Giorgio Maldonado MD Lumbar Spine CT 03/14/17 0000 Signed Impressions: Service Date/Time: Tuesday, March 14, 2017 16:31 - CONCLUSION: 1. Mild compression deformity of L1 which appears chronic. Osteopenia. No acute fracture seen. 2. Mild posterior disc protrusion at L5-S1, slightly worse on the left side with encroachment on the left lateral recess. Giorgio Maldonado MD CT Angiography 03/13/17 0000 Signed Impressions: Service Date/Time: Monday, March 13, 2017 15:12 - CONCLUSION: Interval development of left lower lobe collapse secondary to endobronchial soft tissue density with intermixed air lucency having the appearance of mucous plugging and debris. Bilateral pleural effusions, consolidation and atelectasis. There is no evidence of pulmonary embolus. Earl Araujo MD Procedures * 03/31/17 - sigmoidoscopy. (JESSA JOSEPH-C) Assessment and Plan Disease Oriented Problem List: (1) Gastroparesis (2) Squamous cell carcinoma of epiglottis (3) Nausea and vomiting (4) DM (diabetes mellitus) (5) Pneumonia (6) Depression (7) Failure to thrive in adult Symptom Scale: (1) Generalized weakness 0-10 Scale: Unable to quantify Comment: bedbound since December 2016. (2) Depression 0-10 Scale: Unable to quantify Comment: Off Effexor, recommend restarting KATHERINE. (3) Pain 0-10 Scale: Unable to quantify Comment: due to malignancy, chronic back pain, bedbound status, etc. On Fentanyl patch 25 and PRN Dilaudid. Will monitor. . (4) Anxiety 0-10 Scale: Unable to quantify Pertinent Non-Medical Issues Psychosocial: Primary local psychosocial support is from his spouse. He has his own children in [place] and [place] Spiritual: Yazidi. Legal: No advance directives. would be proxy if patient becomes incapacitate. Ethical issues impacting care: Patient is currently capacitated to make his own health care decisions. . Important Contacts * Dana Santana (spouse) [phone]; [phone] * Lenora Matos (daughter) [phone] . Prognosis Patient has had 7 hospitalizations since November 2016, he has general debility, failure to thrive and multiple medical comorbidities, he has an early SCC of the epiglottis that per radiation oncology is potentially curable if he is able to get and survive treatment. . Code Status: Full Code Plan * Patient is not capacitated to make his health care decisions. Designated health care surrogate is Dana Santana and alternate surrogate is Lenora Matos. * FULL CODE - considering DNR, not yet ready. * Palliative care met with and patient. He does not have insight to illness. In summary, desires continued aggressive, not ready to make DNR decision, left [place] DNR form with at bedside should she elect to change code status. Patient is begging for comfort, requests PRN Lorazepam be ordered. * Spoke with DANNIELLE Carrion who reports patient can eat with G/J tube if cleared by speech therapy. Nurse notified, she will notify speech therapy. * SYMPTOMS: Pain:chronic pain in back, due to malignancy, chronic back pain, bedbound status, etc. On Fentanyl patch 25mcg decreased from 50mcg due to lethargy and PRN Dilaudid. Will monitor. .Decreased appetite: secondary to malignancy. G/J tube placed. NPO for aspiration pending speech eval. Weakness: due to comorbidities, cancer and frequent hospitalizations. Continue PT. * Patient with long history of depression and anxiety, was on Effexor 225mg PO daily (which cannot be crushed) on admission, would consider antidepressant given history. May consider reconsulted psych for recommendations. Patient has history of suicide attempt in recent past. Patient reports feeling "lonely on the inside." * Palliative care will continue to follow throughout hospital course to assist with symptom management and clarification of goals as needed. . (JESSA JOSEPH) Time Spent Total Floor Time (mins): 90 Face to Face Time (mins): 60 >50% Counseling/Coord of Care: Yes (JESSA JOSEPH) Attestation To help prompt me to consider important information that might be impacting today's encounter and assessment, information from prior notes written by myself or my colleagues may have been "brought forward" into today's note. My signature on this note, however, is an attestation that I personally performed the exam, history, and/or decision-making noted today, and, unless otherwise indicated, the interactions with patient, family, and staff as well as the review of records all occurred today. I also attest that the listed assessment and stated plan reflect my best clinical judgment today based on the combination of historical information, prior notes, and today's exam/ interactions. When time spent is documented, it refers only to time spent today by the signer, or if indicated, combined time spent today by collaborating physician/nurse practitioner. (JESSA JOSEPH) Collaborating MD Comments . Chart reviewed. Cased discussed with palliative care POLISHING WHEEL SETTER. Above POLISHING WHEEL SETTER note reviewed and I concur. . (Xavi Morales MD) JESSA JOSEPH April 03, 2017 17:38 Xavi Morales MD April 27, 2017 15:56
--- NOTE | 2017-04-03 17:39 | HHI.PR ---
Subjective Remarks 76 YOWm with COPD,Sq cell ca epiglotis, was on XRT Anxious at BS more awake Tolerates TF 40cc /hr Objective Vital Signs Vital Signs Date Time Temp Pulse Resp B/P Pulse Ox O2 Delivery O2 Flow Rate FiO2 04/03/17 16:00 96.2 81 18 140/80 98 04/03/17 12:00 96.2 80 153/72 92 04/03/17 09:43 96 Nasal Cannula 1.00 04/03/17 08:05 3.00 04/03/17 08:00 97.2 78 16 125/58 98 04/03/17 04:00 97.0 82 18 135/68 91 04/03/17 00:00 97.6 77 16 124/72 94 04/02/17 21:56 Room Air 04/02/17 21:17 21 04/02/17 20:00 97.2 79 16 110/58 94 04/02/17 20:00 78 04/02/17 18:27 79 131/70 I/O 04/02/17 04/02/17 04/02/17 04/03/17 04/03/17 04/03/17 07:00 15:00 23:00 07:00 15:00 23:00 Intake Total 0 ml Output Total 850 ml 200 ml 100 ml 200 ml 200 ml Balance -850 ml -200 ml -100 ml -200 ml -200 ml Intake Oral 0 ml Output Urine Total 850 ml 200 ml 100 ml 200 ml 200 ml Bladder Scan Volume Amount 627 ml # Voids 0 # Bowel Movements 0 1 Result Diagram: 04/02/17 0530 04/02/17 0530 Objective Remarks GENERAL: MBMN WM, NAD SKIN: Warm and dry. HEAD: Normocephalic. EYES: No scleral icterus. No injection or drainage. NECK: Supple, trachea midline. No JVD or lymphadenopathy. CARDIOVASCULAR: Regular rate and rhythm without murmurs, gallops, or rubs. RESPIRATORY: Breath sounds equal bilaterally. No accessory muscle use. GASTROINTESTINAL: Abdomen soft, non-tender, nondistended. MUSCULOSKELETAL: No cyanosis, or edema. BACK: Nontender without obvious deformity. No CVA tenderness. A/P Assessment and Plan COPD Lung Infilt Sq Cell ca Epiglotis DM Anxiety PLAN: DW pt and Cont Aerosol nebs Supplement 02 SQ Lovenox Monitor BS TF Bimal Borden MD April 03, 2017 17:39
[2017-04-03] MEDS: LORazepam 1 MG TAB J-TUBE PRN (18:01)
[2017-04-03] MEDS: SODIUM CHLORIDE 0.9% FLUSH 10 ML FLUSH IVF PRN (19:47)
[2017-04-03] MEDS: PANTOPRAZOLE SODIUM 40 MG VIAL IV PUSH SCH (19:48)
[2017-04-03] MEDS: ATORVASTATIN 40 MG TAB PO SCH (21:53)
[2017-04-04] VITALS (8 sets, daily range): BP systolic 132–161; BP diastolic 70–81; PULSE 75–87; RESP 17–22; TEMP 96.3–97.4; O2SAT 92–99
[2017-04-04] MEDS: DILTIAZEM HCL 60 MG TAB PO SCH ×5 (00:13→23:47)
[2017-04-04] MEDS: LORazepam 1 MG TAB J-TUBE PRN ×4 (00:13→23:48)
[2017-04-04] MEDS: PIPERACIL-TAZO 4.5 GM PREMIX 100 ML IV SCH ×4 (01:53→19:50)
[2017-04-04] MEDS: MORPHINE SULFATE 15 MG TAB PO PRN ×3 (02:42→17:13)
[2017-04-04] MEDS: HYDROmorphone HCL PF 1 MG/ML VIAL IV PRN ×3 (05:03→19:47)
[2017-04-04] MEDS: INSULIN NovoLIN REGULAR SUPPLEMENTAL SCALE SQ SCH ×4 (05:09→20:00)
[2017-04-04 07:45] LABS: AUTOMATED NEUTROPHIL # 6.2 TH/MM3 (1.8-7.7); BASOPHIL % 0.4 % (0.0-2.0); BICARBONATE 34.6 MEQ/L (21.0-32.0); EOSINOPHIL % 0.1 % (0.0-4.0); HEMATOCRIT 36.9 % (39.0-51.0); HEMO FLAGS DIFF FINAL; LYMPHOCYTE # 0.1 TH/MM3 (1.0-4.8); MEAN CELL VOLUME 82.9 FL (80.0-100.0); MEAN CORPUSCULAR HEMOGLOBIN 29.5 PG (27.0-34.0); MEAN CORPUSCULAR HGB CONC 35.6 % (32.0-36.0); MONO % 2.8 % (0.0-8.0); NEUT % 94.7 % (16.0-70.0); PLATELET COUNT 113 TH/MM3 (150-450); POTASSIUM 4.1 MEQ/L (3.5-5.1); RED BLOOD COUNT 4.45 MIL/MM3 (4.50-5.90); RED CELL DISTRIBUTION WIDTH 21.1 % (11.6-17.2); WHITE BLOOD COUNT 6.6 TH/MM3 (4.0-11.0)
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
[2017-04-04] MEDS: predniSONE 20 MG TAB PO SCH ×2 (08:00→19:51)
[2017-04-04] MEDS: AMIODARONE 200 MG TAB PO SCH (08:00)
[2017-04-04] MEDS: TAMSULOSIN HCL 0.4 MG CAP PO SCH ×2 (08:01→13:57)
[2017-04-04] MEDS: RIVAROXABAN 20 MG TAB PO SCH ×2 (08:01→13:57)
[2017-04-04] MEDS: NYSTAT/DIPHENHY/LIDO MOUTHWASH (Adult) 120ML SWISH-SWAL SCH ×4 (08:01→21:00)
[2017-04-04] MEDS: cefTRIAXone INJ 1,000 MG in SODIUM CHLORIDE 0.9% INJ 100 ML IV SCH (11:23)
[2017-04-04] MEDS ORDERED: ALBUMIN HUMAN 25% 25 GM/100 ML BAGP IV ONE (14:00)
--- NOTE | 2017-04-04 16:08 | RADRPT ---
EXAM DATE/TIME: 04/04/2017 14:22 [facility] COMPARISON: No previous studies available for comparison. INDICATIONS : Bilateral leg edema and pain. MEDICAL HISTORY : Congestive heart failure. Gastroparesis. Hernia, hiatal. Throat cancer. Thyroid disease. Tremors. Num bness, feet. Chest pain. Afib. HTN. COPD. Sleep apnea. Dyspnea. GERD. Arthritis. Type I Diabetes. Gai t problems. Mood disorders. Depression. Anxiety. Anticoagulant therapy, Xarelto. SURGICAL HISTORY : Tonsillectomy.Cholecystectomy. Cataracts. Right leg. Cardiac ablation. Cardiac cath. Left arm. Left s houlder replacement. ENCOUNTER: Initial ACUITY: 2 day PAIN SCORE: 6/10 LOCATION: Bilateral leg. TECHNIQUE: Venous ultrasound of the left and right leg was performed from the inguinal ligament to the proximal calf. Real-time, color Doppler and spectral tracing, compression and augmentation techniques were us ed. FINDINGS: RIGHT LEG: There is normal compressibility of the deep venous system from the inguinal region to the proximal ca lf. No echogenic clot is seen in the lumen of the common femoral, femoral, popliteal, and posterior tibial veins. There is a normal response of the venous system to proximal and distal augmentation an d respiration. LEFT LEG: There is normal compressibility of the deep venous system from the inguinal region to the proximal ca lf. No echogenic clot is seen in the lumen of the common femoral, femoral, popliteal, and posterior tibial veins. There is a normal response of the venous system to proximal and distal augmentation an d respiration. CONCLUSION: Normal examination. Giorgio Maldonado MD on April 04, 2017 at 16:05 Board Certified Radiologist. This report was verified electronically.
--- NOTE | 2017-04-04 16:09 | RADRPT ---
EXAM DATE/TIME: 04/04/2017 14:41 [facility] COMPARISON: No previous studies available for comparison. INDICATIONS : Bilateral arm edema and pain. MEDICAL HISTORY : Congestive heart failure. Gastroparesis. Hernia, hiatal. Throat cancer. Thyroid disease. Tremors. Num bness, feet. Chest pain. Afib. HTN. COPD. Sleep apnea. Dyspnea. GERD. Arthritis. Type I Diabetes. Gai t problems. Mood disorders. Depression. Anxiety. Anticoagulant therapy, Xarelto. SURGICAL HISTORY : Tonsillectomy.Cholecystectomy. Cataracts. Right leg. Cardiac ablation. Cardiac cath. Left arm. Left s houlder replacement. ENCOUNTER: Initial ACUITY: 2 day PAIN SCORE: 6/10 LOCATION: Bilateral arm. FINDINGS: RIGHT UPPER EXTREMITY: There is spontaneous flow documented in the brachial, basilic, axillary, and subclavian veins. There is nonocclusive superficial thrombus in the right distal cephalic vein.. Direction of flow in the ju gular vein is caudal. LEFT UPPER EXTREMITY: There is spontaneous flow documented in the brachial, basilic, cephalic, axillary, and subclavian vei ns. The vessels are compressible and augmentation response is documented. No filling defects are se en. The flow is phasic with respiration. Direction of flow in the jugular vein is caudal. CONCLUSION: 1. Nonocclusive superficial thrombus in the right distal cephalic vein. No deep venous thrombosis li aterally. Giorgio Maldonado MD on April 04, 2017 at 16:06 Board Certified Radiologist. This report was verified electronically.
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
[2017-04-04] MEDS: ATORVASTATIN 40 MG TAB PO SCH (19:50)
[2017-04-04] MEDS: PANTOPRAZOLE SODIUM 40 MG VIAL IV PUSH SCH (19:51)
[2017-04-04] MEDS: TEMAZEPAM 15 MG CAP PO PRN (22:12)
[2017-04-05] VITALS (7 sets, daily range): BP systolic 116–167; BP diastolic 58–81; PULSE 77–82; RESP 12–19; TEMP 96.1–97.2; O2SAT 94–98
[2017-04-05] MEDS: PIPERACIL-TAZO 4.5 GM PREMIX 100 ML IV SCH ×4 (01:42→20:22)
[2017-04-05] MEDS: DILTIAZEM HCL 60 MG TAB PO SCH ×3 (06:09→17:35)
[2017-04-05] MEDS: INSULIN NovoLIN REGULAR SUPPLEMENTAL SCALE SQ SCH ×4 (06:09→20:48)
[2017-04-05 06:43] LABS: BICARBONATE 27.3 MEQ/L (21.0-32.0); POTASSIUM 4.5 MEQ/L (3.5-5.1)
[2017-04-05] MEDS: TAMSULOSIN HCL 0.4 MG CAP PO SCH (07:33)
[2017-04-05] MEDS: RIVAROXABAN 20 MG TAB PO SCH (07:33)
[2017-04-05] MEDS: predniSONE 20 MG TAB PO SCH ×2 (07:33→20:22)
[2017-04-05] MEDS: FUROSEMIDE 20 MG TAB PO SCH (07:33)
[2017-04-05] MEDS: NYSTAT/DIPHENHY/LIDO MOUTHWASH (Adult) 120ML SWISH-SWAL SCH ×4 (07:33→20:42)
[2017-04-05] MEDS: AMIODARONE 200 MG TAB PO SCH (07:34)
[2017-04-05 08:51] LABS: AUTOMATED NEUTROPHIL # 5.8 TH/MM3 (1.8-7.7); BASOPHIL % 0.4 % (0.0-2.0); HEMATOCRIT 34.9 % (39.0-51.0); LYMPH % 2.3 % (9.0-44.0); LYMPHOCYTE # 0.1 TH/MM3 (1.0-4.8); MEAN CELL VOLUME 84.8 FL (80.0-100.0); MONO % 3.9 % (0.0-8.0); NEUT % 93.4 % (16.0-70.0); PLATELET COUNT 98 TH/MM3 (150-450); RED BLOOD COUNT 4.11 MIL/MM3 (4.50-5.90); RED CELL DISTRIBUTION WIDTH 20.9 % (11.6-17.2); WHITE BLOOD COUNT 6.2 TH/MM3 (4.0-11.0)
[2017-04-05 09:02] LABS: HEMO FLAGS AUTO DIFF
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
[2017-04-05] MEDS ORDERED: POTASSIUM PHOSPHATE/SODIUM PHOSPHATE 250 MG TAB PO ONE (10:00)
[2017-04-05 10:34] LABS: BANDS 9 % (0-6); NEUTROPHIL # MANUAL DIFF 5.7 TH/MM3 (1.8-7.7); PLATELET ESTIMATE SMEAR LOW (NORMAL); PLATELET MORPHOLOGY NORMAL (NORMAL); POLYS (SEG NEUTROPHILS) 83 % (16-70); SCAN/DIFF FINAL DIFF MANUAL; WBC DIFF SAMPLE 100
[2017-04-05] MEDS: CALCIUM GLUCONATE 500 MG TAB PO SCH (11:00)
[2017-04-05] MEDS: MAGNESIUM OXIDE 400 MG TAB PO SCH (11:12)
[2017-04-05] MEDS: cefTRIAXone INJ 1,000 MG in SODIUM CHLORIDE 0.9% INJ 100 ML IV SCH (11:12)
[2017-04-05 11:41] LABS: ALKALINE PHOSPHATASE 86 U/L (45-117); ALT (GPT) 37 U/L (12-78); ANION GAP 6 MEQ/L (5-15); AST (GOT) 19 U/L (15-37); BICARBONATE 33.9 MEQ/L (21.0-32.0); BLOOD UREA NITROGEN 14 MG/DL (7-18); CHLORIDE 96 MEQ/L (98-107); GLOMERULAR FILTRATION RATE 122 ML/MIN (>89); SODIUM (NA) 136 MEQ/L (136-145); TOTAL BILIRUBIN ADULT 0.4 MG/DL (0.2-1.0)
[2017-04-05] MEDS: BENEPROTEIN POWDER 1 PACK G-TUBE SCH ×2 (11:47→17:50)
[2017-04-05] MEDS: LORazepam 2 MG/ML VIAL IV PUSH PRN ×2 (13:42→14:30)
[2017-04-05] MEDS ORDERED: LORazepam 1 MG TAB PO ONE (15:00)
[2017-04-05] MEDS: MORPHINE SULFATE 15 MG TAB PO PRN (17:39)
[2017-04-05 17:52] LABS: FREE T4 0.22 NG/DL (0.76-1.46)
[2017-04-05] MEDS: ATORVASTATIN 40 MG TAB PO SCH (20:22)
[2017-04-05] MEDS: PANTOPRAZOLE SODIUM 40 MG VIAL IV PUSH SCH (20:23)
[2017-04-05] MEDS: HYDROmorphone HCL PF 1 MG/ML VIAL IV PRN (20:25)
[2017-04-05] MEDS: TEMAZEPAM 15 MG CAP PO PRN (22:01)
[2017-04-06] VITALS (8 sets, daily range): BP systolic 120–149; BP diastolic 63–72; PULSE 71–82; RESP 16–20; TEMP 95.6–97.2; O2SAT 95–100
[2017-04-06] MEDS: PIPERACIL-TAZO 4.5 GM PREMIX 100 ML IV SCH ×4 (00:11→20:19)
[2017-04-06] MEDS: DILTIAZEM HCL 60 MG TAB PO SCH ×5 (00:11→23:45)
[2017-04-06] MEDS: fentaNYL 25 MCG/HR PATCH T-DERMAL SCH ×2 (00:11→22:21)
[2017-04-06] MEDS: REMOVE OLD PATCH-FENTANYL T-DERMAL SCH (00:13)
[2017-04-06] MEDS: ONDANSETRON HCL 4 MG/2 ML VIAL IV PUSH PRN (01:48)
[2017-04-06] MEDS: INSULIN NovoLIN REGULAR SUPPLEMENTAL SCALE SQ SCH ×4 (05:10→20:21)
[2017-04-06] MEDS: METOCLOPRAMIDE HCL 10 MG/2 ML VIAL IV PUSH PRN (05:12)
[2017-04-06] MEDS: MORPHINE SULFATE 15 MG TAB PO PRN ×2 (05:19→22:22)
[2017-04-06 07:29] LABS: ALKALINE PHOSPHATASE 84 U/L (45-117); ALT (GPT) 37 U/L (12-78); ANION GAP 8 MEQ/L (5-15); AST (GOT) 13 U/L (15-37); BICARBONATE 32.8 MEQ/L (21.0-32.0); BLOOD UREA NITROGEN 14 MG/DL (7-18); CHLORIDE 93 MEQ/L (98-107); GLOMERULAR FILTRATION RATE 143 ML/MIN (>89); MAGNESIUM 1.8 MG/DL (1.5-2.5); SODIUM (NA) 134 MEQ/L (136-145); TOTAL BILIRUBIN ADULT 0.5 MG/DL (0.2-1.0)
[2017-04-06] MEDS ORDERED: PROPOFOL 200 MG/20 ML AMP IV ONE ×2 (07:47→12:00)
[2017-04-06] MEDS: FUROSEMIDE 20 MG TAB PO SCH (08:44)
[2017-04-06] MEDS: BENEPROTEIN POWDER 1 PACK G-TUBE SCH ×3 (08:44→18:00)
[2017-04-06] MEDS: RIVAROXABAN 20 MG TAB PO SCH (08:44)
[2017-04-06] MEDS: MAGNESIUM OXIDE 400 MG TAB PO SCH (08:44)
[2017-04-06] MEDS: AMIODARONE 200 MG TAB PO SCH (08:44)
[2017-04-06] MEDS: TAMSULOSIN HCL 0.4 MG CAP PO SCH (08:44)
[2017-04-06] MEDS: predniSONE 20 MG TAB PO SCH ×2 (08:44→20:18)
[2017-04-06] MEDS: NYSTAT/DIPHENHY/LIDO MOUTHWASH (Adult) 120ML SWISH-SWAL SCH ×3 (08:45→20:18)
[2017-04-06] MEDS: CALCIUM GLUCONATE 500 MG TAB PO SCH (08:45)
--- NOTE | 2017-04-06 08:45 | HHI.PR ---
Objective Vital Signs Date Time Temp Pulse Resp B/P Pulse Ox O2 Delivery O2 Flow Rate FiO2 04/06/17 08:00 95.6 76 16 127/72 98 04/06/17 05:00 96.7 76 18 124/65 97 04/06/17 00:00 97.0 82 18 120/66 98 04/05/17 20:30 Room Air 1.00 21 04/05/17 20:25 96.9 80 18 116/58 97 04/05/17 20:03 78 04/05/17 16:00 96.4 77 18 134/65 97 04/05/17 12:00 82 12 98 04/05/17 09:45 97.2 78 12 133/73 98 I/O 04/05/17 04/05/17 04/05/17 04/06/17 04/06/17 04/06/17 07:00 15:00 23:00 07:00 15:00 23:00 Intake Total 180 ml 420 ml 1704 ml 225 ml Output Total 800 ml 1200 ml 500 ml 680 ml Balance -620 ml -780 ml 1204 ml -455 ml Intake Oral 180 ml 420 ml IV Total 1704 ml 225 ml Output Urine Total 800 ml 1200 ml 500 ml 680 ml Result Diagram: 04/05/17 0815 04/06/17 0626 Other Results tsh 50 Objective Remarks awake alert speech slurred a little Assessment and Plan Assessment and Plan imp for mri and emg needs thyroid rx some lexapro for depression consider lower narcotics a little he is a little overmedicated will Phillip Recio MD April 06, 2017 08:45
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
[2017-04-06] MEDS: ESCITALOPRAM OXALATE 10 MG TAB PO SCH (10:06)
[2017-04-06] MEDS: LORazepam 1 MG TAB PEG PRN (10:06)
[2017-04-06] MEDS: cefTRIAXone INJ 1,000 MG in SODIUM CHLORIDE 0.9% INJ 100 ML IV SCH (12:23)
[2017-04-06 14:11] LABS: RAPID PLASMA REAGIN SCREEN NON-REACTIVE (NON-REACTVE)
[2017-04-06 14:48] LABS: ANA SCREEN NEG (NEG)
[2017-04-06] MEDS ORDERED: GADODIAMIDE PF 287 MG/ML 5 ML VIAL (for RAD MRI) IV ONE (18:00)
--- NOTE | 2017-04-06 18:00 | HHI.HCPN ---
Call from to request visit regarding goals of care discussion. Upon arrival patient is awake with eyes closed, he is communicating more than my last few visits. He has been asking to go home for the past 24 hours per report. We discussion continued aggressive care vs transition to comfort focused care with hospice support at home. He wants to go home. He is going to MRI, we agreed to reevaluate plan of care once MRI results are complete. If he has mets disease they will likely elect comfort measures with hospice support. If not, I suspect he will continue aggressive care. Palliative care will meet patient and again tomorrow. . JESSA JOSEPH April 06, 2017 18:00
--- NOTE | 2017-04-06 18:37 | RADRPT ---
EXAM DATE/TIME: 04/05/2017 14:22 CORRECTION Corrected on: April 15, 2017; fixed exam date april 05 to april 06 [facility] COMPARISON: No previous studies available for comparison. INDICATIONS : Metastatic disease. Confusion. CONTRAST: 18 cc Omniscan (gadodiamide) IV MEDICAL HISTORY : Diabetes mellitus type 2. Hypertension. Carcinoma, esophageal. SURGICAL HISTORY : Cholecystectomy. Tonsillectomy. Sympathectomy. Left shoulder. ENCOUNTER: Subsequent ACUITY: 3 weeks PAIN SCORE: Nonresponsive. LOCATION: cranial TECHNIQUE: Multiplanar, multisequence MRI of the brain was performed both prior to and following the administrat ion of paramagnetic contrast. FINDINGS: CEREBRUM: The ventricles are normal for age. No evidence of midline shift, mass lesion, hemorrhage or acute in farction. No extraaxial fluid collections are seen. The pituitary gland and suprasellar cistern are normal in configuration. WHITE MATTER: Minimal occasional punctate white matter T2 signal likely microvascular ischemic. POSTERIOR FOSSA: The cerebellum and brainstem are intact. The 4th ventricle is midline. The cerebellopontine angle is unremarkable. The cerebellar tonsils are normal in position. DIFFUSION IMAGING: No focal areas of restricted diffusion are seen. No evidence of acute infarction. EXTRACRANIAL: Fluid in the mastoids, right worse than left. The visualized portions of the orbits and paranasal sin uses are unremarkable. POST-CONTRAST: No abnormal areas of parenchymal or dural enhancement. No evidence of blood-brain barrier breakdown. CONCLUSION: No acute intracranial findings Otis Pereyra MD on April 06, 2017 at 18:32 Board Certified Radiologist. This report was verified electronically. Caution: Report not yet finalized and possibly incomplete!
[2017-04-06] MEDS ORDERED: DO NOT ADM ANY ANTICOAGULANT DRUGS PRN (19:45)
--- NOTE | 2017-04-06 20:11 | RADRPT ---
EXAM DATE/TIME: 04/06/2017 14:22 CORRECTION Corrected on: April 15, 2017; fixed date from april 05 to april 06 [facility] COMPARISON: No previous studies available for comparison. INDICATIONS : Myelopathy. CONTRAST: 18 cc Omniscan (gadodiamide) IV MEDICAL HISTORY : Carcinoma, esophageal. Hypertension. Diabetes mellitus type 1. A-fib. SURGICAL HISTORY : Cholecystectomy. Tonsillectomy. Sympathectomy. Left shoulder. ENCOUNTER: Subsequent ACUITY: 3 weeks PAIN SCORE: Nonresponsive. LOCATION: neck TECHNIQUE: Multiplanar, multisequence MRI examination of the cervical spine was performed. FINDINGS: VERTEBRAE: Normal vertebral body height. Homogeneous marrow signal. ALIGNMENT: No evidence of subluxation. CORD: Normal configuration and signal. POST FOSSA: The cerebellar tonsils are normal in position. POST-CONTRAST: No abnormal areas of enhancement are seen. C2-C3: The thecal sac has a normal configuration. There is no evidence of disc herniation or spinal canal stenosis. The neural foramina are patent bilaterally. C3-C4: Slight broad dorsal disc protrusion with mild superimposed dorsal ligamentous hypertrophy contribute into the moderate canal constriction with near complete effacement of ventral and dorsal CSF signal.C 4-C5: Mild with mild superimposed dorsal ligaments hypertrophy contributing to mild flattening of the theca l sac. with superimposed dorsal ligamentous hypertrophy contributing to moderate flattening of the th ecal sac with complete effacement of ventral and dorsal CSF signal. C5-C6: The thecal sac has a normal configuration. There is no evidence of disc herniation or spinal canal s tenosis. The neural foramina are patent bilaterally. C6-C7: The thecal sac has a normal configuration. There is no evidence of disc herniation or spinal canal s tenosis. The neural foramina are patent bilaterally. C7-T1: The thecal sac has a normal configuration. There is no evidence of disc herniation or spinal canal s tenosis. The neural foramina are patent bilaterally. CONCLUSION: Canal stenosis related to broad disc protrusion and dorsal ligamentous hypertrophy, most significantl y present at C4-5 with less significant changes at the adjacent levels. No evidence of cord abnormali ty or enhancement to suggest injury or metastatic disease. Otis Pereyra MD on April 06, 2017 at 20:06 Board Certified Radiologist. This report was verified electronically. on April 15, 2017 at 16:24 Board Certified Radiologist. This report was verified electronically.
--- NOTE | 2017-04-06 20:17 | RADRPT ---
EXAM DATE/TIME: 04/06/2017 14:22 CORRECTION Corrected on: April 15, 2017; fixed date april 05 to april 06 [facility] COMPARISON: No previous studies available for comparison. INDICATIONS : Weakness. CONTRAST: 18 cc Omniscan (gadodiamide) IV MEDICAL HISTORY : Carcinoma, esophageal. Hypertension. Diabetes mellitus type 1. SURGICAL HISTORY : Cholecystectomy. Tonsillectomy. Sympathectomy. Left shoulder. ENCOUNTER: Subsequent ACUITY: 3 weeks PAIN SCORE: Nonresponsive. LOCATION: Lower back. TECHNIQUE: Multiplanar multisequence MRI of the lumbar spine was performed with and without contrast. FINDINGS: The most caudal appearing lumbar vertebra is numbered as L5. VERTEBRAE: There is no acute mild compressive injury involving the superior endplate of L1 with about 30% loss o f ventral vertebral body height. No edema signal to indicate recent injury. A hemangioma is present i nvolving L2. No suspicious marrow signal abnormality is identified. Alignment is normal. CONUS: Normal level and configuration. POST CONTRAST: No abnormal areas of contrast enhancement are seen. T12-L1: The thecal sac has a normal diameter. No evidence of disc bulge or protrusion. The neural foramina are patent bilaterally. L1-L2: The thecal sac has a normal diameter. No evidence of disc bulge or protrusion. The neural foramina are patent bilaterally. L2-L3: The thecal sac has a normal diameter. No evidence of disc bulge or protrusion. The neural foramina are patent bilaterally. L3-L4: The thecal sac has a normal diameter. No evidence of disc bulge or protrusion. The neural foramina are patent bilaterally. L4-L5: The thecal sac has a normal diameter. No evidence of disc bulge or protrusion. The neural foramina are patent bilaterally. L5-S1: Mild disc dehydration. Minimal broad protrusion left paracentral without significant associated canal or foraminal compromise. CONCLUSION: No acute bony findings. Minimal disc disease L5-S1 without significant anatomic consequence. Otis Pereyra MD on April 06, 2017 at 20:14 Board Certified Radiologist. This report was verified electronically Board Certified Radiologist. This report was verified electronically.
[2017-04-06] MEDS: ATORVASTATIN 40 MG TAB PO SCH (20:18)
[2017-04-06] MEDS: PANTOPRAZOLE SODIUM 40 MG VIAL IV PUSH SCH (20:19)
--- NOTE | 2017-04-06 20:20 | RADRPT ---
EXAM DATE/TIME: 04/06/2017 14:22 [facility] COMPARISON: No previous studies available for comparison. INDICATIONS : Myelopathy. CONTRAST: 18 cc Omniscan (gadodiamide) IV MEDICAL HISTORY : Carcinoma, esophageal. Hypertension. Diabetes mellitus type 1. SURGICAL HISTORY : Cholecystectomy. Tonsillectomy. Sympathectomy. Left shoulder. ENCOUNTER: Subsequent ACUITY: 3 weeks PAIN SCORE: Nonresponsive. LOCATION: Mid-back. TECHNIQUE: Multiplanar multisequence MRI of the thoracic spine was performed. FINDINGS: VERTEBRA: There is a moderate severity subacute gauge compressive injury at T5 with about 30% loss of ventral v ertebral body height. Areas of focal marrow signal change involving the ventral T8-T9 and dorsal T11 vertebra are felt benign, likely hemangiomata. ALIGNMENT: Normal. CORD: Normal position and configuration. POST CONTRAST: Nonspecific fracture enhancement. T1-T2: Normal. T2-T3: The thecal sac has a normal diameter. No evidence of disc bulge or protrusion. T3-T4: The thecal sac has a normal diameter. No evidence of disc bulge or protrusion. T4-T5: The thecal sac has a normal diameter. No evidence of disc bulge or protrusion. T5-T6: The thecal sac has a normal diameter. No evidence of disc bulge or protrusion. T6-T7: The thecal sac has a normal diameter. No evidence of disc bulge or protrusion. T7-T8: The thecal sac has a normal diameter. No evidence of disc bulge or protrusion. T8-T9: The thecal sac has a normal diameter. No evidence of disc bulge or protrusion. T9-T10: Broad central to left paracentral disc protrusion with minimal indentation of the thecal sac. No stephanie l or foraminal compromise. T10-T11: The thecal sac has a normal diameter. No evidence of disc bulge or protrusion. T11-T12: The thecal sac has a normal diameter. No evidence of disc bulge or protrusion. T12-L1: The thecal sac has a normal diameter. No evidence of disc bulge or protrusion. CONCLUSION: Subacute age moderate severity compression fracture at T5. Small central to left paracentral disc pro trusion at T9-10. Otis Pereyra MD on April 06, 2017 at 20:15 Board Certified Radiologist. This report was verified electronically.
[2017-04-06] MEDS: HYDROmorphone HCL PF 1 MG/ML VIAL IV PRN (23:01)
[2017-04-07] VITALS (9 sets, daily range): BP systolic 113–148; BP diastolic 63–72; PULSE 75–83; RESP 16–20; TEMP 96.2–97.9; O2SAT 95–100
[2017-04-07] MEDS: PIPERACIL-TAZO 4.5 GM PREMIX 100 ML IV SCH ×4 (03:03→21:37)
[2017-04-07] MEDS: DILTIAZEM HCL 60 MG TAB PO SCH ×3 (06:07→18:13)
[2017-04-07] MEDS: INSULIN NovoLIN REGULAR SUPPLEMENTAL SCALE SQ SCH ×4 (06:10→21:36)
[2017-04-07 07:41] LABS: ALT (GPT) 38 U/L (12-78); ANION GAP 7 MEQ/L (5-15); AST (GOT) 16 U/L (15-37); BICARBONATE 31.9 MEQ/L (21.0-32.0); BLOOD UREA NITROGEN 14 MG/DL (7-18); CHLORIDE 94 MEQ/L (98-107); GLOMERULAR FILTRATION RATE 155 ML/MIN (>89); POTASSIUM 4.2 MEQ/L (3.5-5.1); SODIUM (NA) 133 MEQ/L (136-145)
[2017-04-07 07:43] LABS: ALKALINE PHOSPHATASE 80 U/L (45-117); TOTAL BILIRUBIN ADULT 0.5 MG/DL (0.2-1.0)
[2017-04-07] MEDS: NYSTAT/DIPHENHY/LIDO MOUTHWASH (Adult) 120ML SWISH-SWAL SCH ×4 (07:54→21:32)
[2017-04-07] MEDS: MAGNESIUM OXIDE 400 MG TAB PO SCH (07:54)
[2017-04-07] MEDS: FUROSEMIDE 20 MG TAB PO SCH (07:54)
[2017-04-07] MEDS: AMIODARONE 200 MG TAB PO SCH (07:54)
[2017-04-07] MEDS: RIVAROXABAN 20 MG TAB PO SCH (07:54)
[2017-04-07] MEDS: TAMSULOSIN HCL 0.4 MG CAP PO SCH (07:54)
[2017-04-07] MEDS: CALCIUM GLUCONATE 500 MG TAB PO SCH (07:54)
[2017-04-07] MEDS: MORPHINE SULFATE 15 MG TAB PO PRN ×3 (07:55→21:30)
[2017-04-07] MEDS: ESCITALOPRAM OXALATE 10 MG TAB PO SCH (07:55)
[2017-04-07] MEDS: predniSONE 20 MG TAB PO SCH ×2 (07:55→21:31)
[2017-04-07] MEDS: BENEPROTEIN POWDER 1 PACK G-TUBE SCH ×3 (07:56→18:13)
--- NOTE | 2017-04-07 08:17 | HHI.PR ---
Objective Vital Signs Date Time Temp Pulse Resp B/P Pulse Ox O2 Delivery O2 Flow Rate FiO2 04/07/17 04:00 96.5 78 16 118/64 100 04/07/17 00:00 96.4 75 16 117/65 100 04/06/17 23:13 Nasal Cannula 3.00 04/06/17 21:05 75 04/06/17 21:05 Nasal Cannula 3.00 21 04/06/17 20:15 96.6 76 18 149/71 100 04/06/17 19:45 97.5 75 12 129/71 100 Nasal Cannula 3 04/06/17 19:30 76 12 126/71 100 Nasal Cannula 3 04/06/17 19:15 75 10 120/61 100 Nasal Cannula 3 04/06/17 19:01 97.8 75 10 128/72 100 Simple Mask 8 04/06/17 16:00 96.4 77 20 128/67 98 04/06/17 12:00 97.2 76 18 125/63 95 04/06/17 09:00 Nasal Cannula 1.00 04/06/17 08:21 71 I/O 04/06/17 04/06/17 04/06/17 04/07/17 04/07/17 04/07/17 07:00 15:00 23:00 07:00 15:00 23:00 Intake Total 225 ml 360 ml 750 ml Output Total 680 ml 975 ml 275 ml 225 ml Balance -455 ml -615 ml 475 ml -225 ml Intake Oral 360 ml 0 ml IV Total 225 ml 100 ml Other 650 ml Output Urine Total 680 ml 975 ml 275 ml 225 ml Estimated Blood Loss 0 ml Other 0 ml Result Diagram: 04/05/17 0815 04/07/17 0635 Other Results mri b c t ls ok tsh inc Objective Remarks awake alert speech slurred a little still some confused can wiggle toes Assessment and Plan Assessment and Plan imp for mri all neg and emg they will decide if want needs thyroid rx some lexapro for depression consider lower narcotics a little he is a little overmedicated will Phillip Recio MD April 07, 2017 08:17
--- NOTE | 2017-04-07 08:56 | MB ---
cc: MI YANEZ DATE OF CONSULTATION: 04/05/2017 HISTORY OF PRESENT ILLNESS: 76-year-old right-handed man with a history of insulin-dependent diabetes, atrial fibrillation, he has been on Xarelto on and off, COPD, hypothyroidism, throat cancer (new) treatment, G-tube placement, and multiple pneumonias due to reflux. He last was able to stand and walk in December. Since last August, his gait slowly worsened and he was using a walker at one point. He seemed to be sliding over to one side and now he is unable to stand and has not been able to really stand or walk since for two months. He has been in and out of the hospital with multiple pneumonias. He has a history of sciatica in the past according to his . REVIEW OF SYSTEMS: No hypertension, hypercholesterolemia, renal, hepatic disease lupus, ulcer, seizure or stroke. SOCIAL HISTORY: Not a smoker or a drinker. He lives with his . FAMILY HISTORY: Negative cancer, seizure or stroke. CURRENT MEDICATIONS: 1. Ativan, which he got for the MRI today. Unfortunately he was not able to tolerate it. 2. Lasix. 3. Restoril. 4. PRN Ativan. 5. Fentanyl patch. 6. Morphine. 7. Dilaudid PRN. 8. Cardizem. 9. Prednisone 20 milligrams twice a day since March 18. 10. Xarelto 20 milligrams a day. 11. Zofran. 12. Cordarone. 13. Protonix. 14. Lipitor. PAST MEDICAL HISTORY: 1. History of depression. 2. 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 PHYSICAL EXAMINATION: VITAL SIGNS: Afebrile, 78, 12, 133/73. NECK: There are no carotid bruits. HEART: Regular rhythm. I do not detect a murmur. NEUROLOGICAL EXAMINATION: He awakens. Visual huddleston are full. Face is symmetric. Tongue was midline. He tends to perseverate somewhat but he appears to have near-normal strength in bilateral triceps and finger extensors. His tone was normal in upper and lower extremities bilaterally. He has significant edema into the lower legs bilaterally and significant atrophy of his tibialis anterior, worse on the right than the left. His lower legs tend to be thin. He cannot get his knees off the bed and I would say his iliopsoas is about a 1-2/5 bilaterally. Quadriceps - he was able to straighten his leg out. I would put it as a 4-/5 bilaterally. He is able to wiggle his feet a little bit but tibialis anterior generally was about a 2/5. Hamstring on the right 4/5, and on the left 3/5. Reflexes are 1+ and symmetric and present at the biceps bilaterally and absent in the lower extremities bilaterally. Pinprick - he is so inconsistent on, cannot really tell. His proprioception is lost at the toes bilaterally. Vibratory sense appears to be lost in the lower extremities bilaterally and I cannot tell really if he has a pin level or not, he is just too inconsistent and cannot differentiate between sharp and dull. Tone was normal in bilateral lower extremities and upper extremities, however. Mental status - he is too tired after getting Ativan to really stay awake for very long. He follows commands fairly well. He is not aphasic. His memory is poor according to his . LABORATORY DATA: Platelet count is 98,000 and had been 173,000 on 03/28/2017. Urinalysis on 04/01 shows 60 white cells, large amount of leukocyte esterase. ABG on April 02 was normal. IMAGING STUDIES: Lower extremity ultrasounds have shown no DVT. CT scan of the lumbar and thoracic spine read as no major cord compression. I do not see any definite cord or spinal canal compromise. IMPRESSION: 1. Bilateral lower extremity and weakness, possibly due to diabetic causes, diabetic polyradiculopathy or is a consideration, although the weakness in his legs did not actually start with a painful episode according to his . Will get an EMG on his bilateral extremities and have anesthesia see him and see if we can get an MRI of his brain, cervical, thoracic and lumbosacral pine. I will check some additional blood work. I will be following him with you in the hospital. MD RAFIA Quinonez/isaac /8:48 AM 8:51 AM
[2017-04-07] MEDS: HYDROmorphone HCL PF 1 MG/ML VIAL IV PRN (09:32)
[2017-04-07] MEDS: SENNOSIDES 8.6 MG TAB PO PRN (09:32)
[2017-04-07] MEDS: LORazepam 1 MG TAB PEG PRN (10:13)
[2017-04-07] MEDS: VENLAFAXINE HCL XR 75 MG CAP PO SCH (11:00)
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
[2017-04-07] MEDS: cefTRIAXone INJ 1,000 MG in SODIUM CHLORIDE 0.9% INJ 100 ML IV SCH (12:35)
[2017-04-07] MEDS: LEVOTHYROXINE SODIUM 100 MCG TAB PO SCH (12:35)
[2017-04-07] MEDS: LEVOTHYROXINE SODIUM 125 MCG TAB PO SCH (12:35)
--- NOTE | 2017-04-07 13:56 | HHI.HCPN ---
Reason for visit a. To assist with evaluation and management of symptoms including: weakness , pain, anxiety. b. To assist medical decision maker(s) with: better understanding of current medical conditions; weighing benefits/burdens of medical treatment options; making medical treatment decisions. . (Sydni Mcnulty) Subjective/Interval History Patient seen to follow up on goals, update on new imaging etc. s/p MRI completed yesterday, neurology has evaluated. MRI brain, spine with no acute process identified, NO METASTATIC PROCESS. Neurology has ordered EMG. Vital signs stable. Currently on nasal cannula. Chemistry stable. Pt seen in room, no visitors present. He is on the phone, repeats telling the person (his ?) that they need to hurry up and get back,and he wants them back by 1230 (it is currently 1:30) He continues to repeat get back here. Upon hanging up he falls asleep. Woke for my exam. He is partially oriented. He knows he is at [place], thinks he has been here since Nov 30, "a long time" unable to tell me why he is in hospital. Tells me he has diabetic neuropathy, cancer. Ask him how he has been feeling he tells me not too good today, continued to ask for further description of what is not feeling well--he tells me some abdominal discomfort not exactly pain or nausea but discomfort. He tells me is improved now. He denies pain. Ask him how his strength is , he tells me that he is trying to walk but that he has not yet. He is lethargic and keeps eyes closed during most of exam. Following exam call to his , who does indicate that she was just on the phone with him, and had just left the hospital a little while ago around 1:00 to go home and shower and that he has already been calling her to return. She indicates she does have additional questions however she wishes to complete her tasks at home and return to the hospital soon, she will notify me when she is back here. . (Sydni Mcnulty) Advance Directives Living Will: Never completed Health Care Surrogate: Copy in medical record Durable Power of Civil Cadd Technician: Never completed (Sydni Mcnulty) Advance Directive Specifics Date completed: 02/18/17 . Health Care Surrogate(s): Designated health care surrogate is Dana Santana and alternate surrogate is Lenora . (Sydni Mcnulty) Objective Vital Signs Date Time Temp Pulse Resp B/P Pulse Ox O2 Delivery O2 Flow Rate FiO2 04/07/17 13:28 96.7 81 20 148/72 99 04/07/17 11:47 99 04/07/17 08:00 96.2 82 18 138/72 100 04/07/17 04:00 96.5 78 16 118/64 100 04/07/17 00:00 96.4 75 16 117/65 100 04/06/17 23:13 Nasal Cannula 3.00 04/06/17 21:05 75 04/06/17 21:05 Nasal Cannula 3.00 21 04/06/17 20:15 96.6 76 18 149/71 100 04/06/17 19:45 97.5 75 12 129/71 100 Nasal Cannula 3 04/06/17 19:30 76 12 126/71 100 Nasal Cannula 3 04/06/17 19:15 75 10 120/61 100 Nasal Cannula 3 04/06/17 19:01 97.8 75 10 128/72 100 Simple Mask 8 04/06/17 16:00 96.4 77 20 128/67 98 Intake & Output 04/07/17 04/07/17 06:59 18:59 Intake Total 750 ml Output Total 500 ml Balance 250 ml Intake Oral 0 ml IV Total 100 ml Other 650 ml Output Urine Total 500 ml Estimated Blood Loss 0 ml Other 0 ml Physical Exam CONSTITUTIONAL/GENERAL: This is an thin, frail, lethargic male, in no apparent distress. TUBES/LINES/DRAINS: NC, PIV bue, G/J tube, specialty bed. CARDIOVASCULAR: Regular rate and rhythm without murmurs. No peripheral edema. RESPIRATORY/CHEST: Symmetric, unlabored respirations. On 2 L nasal cannula. Breath sounds clear, slightly diminished. GASTROINTESTINAL: Abdomen soft, non-tender, nondistended. +G/J tube, tube feed infusing. Bowel sounds normoactive. MUSCULOSKELETAL: Extremities without clubbing, cyanosis, or edema. No mottling or clubbing. NEUROLOGICAL: Lethargic, arouses some for interaction. Partially oriented to self, family, hospital. Otherwise confused. Poor insight to hospitalization. Very weak lower extremities able to move toes, feet slightly. Better strength upper extremities, slight generalized weakness. PSYCHIATRIC: No apparent depression or anxiety during exam today . (Sydni Mcnulty) Diagnostic Tests Laboratory Laboratory Tests Test 04/05/17 04/05/17 04/05/17 04/05/17 05:55 08:15 10:42 17:00 Sodium Level 134 MEQ/L 136 MEQ/L (136-145) (136-145) Potassium Level 4.5 MEQ/L 4.0 MEQ/L (3.5-5.1) (3.5-5.1) Chloride Level 98 MEQ/L 96 MEQ/L (98-107) (98-107) Carbon Dioxide Level 27.3 MEQ/L 33.9 MEQ/L (21.0-32.0) (21.0-32.0) Anion Gap 9 MEQ/L (5-15) 6 MEQ/L (5-15) Blood Urea Nitrogen 12 MG/DL (7-18) 14 MG/DL (7-18) Creatinine 0.46 MG/DL 0.64 MG/DL (0.60-1.30) (0.60-1.30) Estimat Glomerular Filtration 179 ML/MIN 122 ML/MIN Rate (>89) (>89) Random Glucose 312 MG/DL 291 MG/DL (74-106) (74-106) Calcium Level 7.8 MG/DL 7.7 MG/DL (8.5-10.1) (8.5-10.1) White Blood Count 6.2 TH/MM3 (4.0-11.0) Red Blood Count 4.11 MIL/MM3 (4.50-5.90) Hemoglobin 11.5 GM/DL (13.0-17.0) Hematocrit 34.9 % (39.0-51.0) Mean Corpuscular Volume 84.8 FL (80.0-100.0) Mean Corpuscular Hemoglobin 28.0 PG (27.0-34.0) Mean Corpuscular Hemoglobin 33.0 % Concent (32.0-36.0) Red Cell Distribution Width 20.9 % (11.6-17.2) Platelet Count 98 TH/MM3 (150-450) Mean Platelet Volume 7.3 FL (7.0-11.0) Neutrophils (%) (Auto) 93.4 % (16.0-70.0) Lymphocytes (%) (Auto) 2.3 % (9.0-44.0) Monocytes (%) (Auto) 3.9 % (0.0-8.0) Eosinophils (%) (Auto) 0.0 % (0.0-4.0) Basophils (%) (Auto) 0.4 % (0.0-2.0) Neutrophils # (Auto) 5.8 TH/MM3 (1.8-7.7) Lymphocytes # (Auto) 0.1 TH/MM3 (1.0-4.8) Monocytes # (Auto) 0.2 TH/MM3 (0-0.9) Eosinophils # (Auto) 0.0 TH/MM3 (0-0.4) Basophils # (Auto) 0.0 TH/MM3 (0-0.2) CBC Comment AUTO DIFF Differential Total Cells 100 Counted Neutrophils % (Manual) 83 % (16-70) Band Neutrophils % 9 % (0-6) Lymphocytes % 5 % (9-44) Monocytes % 3 % (0-8) Neutrophils # (Manual) 5.7 TH/MM3 (1.8-7.7) Differential Comment FINAL DIFF MANUAL Platelet Estimate LOW (NORMAL) Platelet Morphology Comment NORMAL (NORMAL) Phosphorus Level 0.9 MG/DL (2.5-4.9) Magnesium Level 2.0 MG/DL (1.5-2.5) Total Bilirubin 0.4 MG/DL (0.2-1.0) Aspartate Amino Transf 19 U/L (15-37) (AST/SGOT) Alanine Aminotransferase 37 U/L (12-78) (ALT/SGPT) Alkaline Phosphatase 86 U/L (45-117) Total Protein 5.1 GM/DL (6.4-8.2) Albumin 2.3 GM/DL (3.4-5.0) Vitamin B12 Level GREATER THAN 2000 PG/ML (193-986) Folate 14.9 NG/ML (3.1-17.5) Erythrocyte Sedimentation Rate 9 mm/hr (0-20) Free Thyroxine 0.22 NG/DL (0.76-1.46) Thyroid Stimulating Hormone 50.400 uIU/ML 3rd Gen (0.358-3.740) Test 04/06/17 04/07/17 06:26 06:35 Sodium Level 134 MEQ/L 133 MEQ/L (136-145) (136-145) Potassium Level 4.0 MEQ/L 4.2 MEQ/L (3.5-5.1) (3.5-5.1) Chloride Level 93 MEQ/L 94 MEQ/L (98-107) (98-107) Carbon Dioxide Level 32.8 MEQ/L 31.9 MEQ/L (21.0-32.0) (21.0-32.0) Anion Gap 8 MEQ/L (5-15) 7 MEQ/L (5-15) Blood Urea Nitrogen 14 MG/DL (7-18) 14 MG/DL (7-18) Creatinine 0.56 MG/DL 0.52 MG/DL (0.60-1.30) (0.60-1.30) Estimat Glomerular Filtration 143 ML/MIN 155 ML/MIN Rate (>89) (>89) Random Glucose 321 MG/DL 280 MG/DL (74-106) (74-106) Calcium Level 7.9 MG/DL 8.1 MG/DL (8.5-10.1) (8.5-10.1) Phosphorus Level 1.5 MG/DL 1.6 MG/DL (2.5-4.9) (2.5-4.9) Magnesium Level 1.8 MG/DL 2.0 MG/DL (1.5-2.5) (1.5-2.5) Total Bilirubin 0.5 MG/DL 0.5 MG/DL (0.2-1.0) (0.2-1.0) Aspartate Amino Transf 13 U/L (15-37) 16 U/L (15-37) (AST/SGOT) Alanine Aminotransferase 37 U/L (12-78) 38 U/L (12-78) (ALT/SGPT) Alkaline Phosphatase 84 U/L (45-117) 80 U/L (45-117) Total Protein 5.0 GM/DL 5.2 GM/DL (6.4-8.2) (6.4-8.2) Albumin 2.3 GM/DL 2.4 GM/DL (3.4-5.0) (3.4-5.0) Anti-Nuclear Antibody Screen NEG (NEG) Rapid Plasma Reagin NON-REACTIVE (NON-REACTVE) (Sydni Mcnulty) Result Diagram: 04/05/17 0815 04/07/17 0635 Imaging Last Impressions Thoracic Spine MRI 04/06/17 1607 Signed Impressions: Service Date/Time: Thursday, April 06, 2017 14:22 - CONCLUSION: Subacute age moderate severity compression fracture at T5. Small central to left paracentral disc protrusion at T9-10. Otis Pereyra MD Cervical Spine MRI 04/06/17 1607 Signed Impressions: Service Date/Time: Wednesday, April 05, 2017 14:22 - CONCLUSION: Canal stenosis related to broad disc protrusion and dorsal ligamentous hypertrophy, most significantly present at C4-5 with less significant changes at the adjacent levels. No evidence of cord abnormality or enhancement to suggest injury or metastatic disease. Otis Pereyra MD Lumbar Spine MRI 04/06/17 0000 Signed Impressions: Service Date/Time: Wednesday, April 05, 2017 14:22 - CONCLUSION: No acute bony findings. Minimal disc disease L5-S1 without significant anatomic consequence. Otis Pereyra MD Brain MRI 04/06/17 0000 Signed Impressions: Service Date/Time: Wednesday, April 05, 2017 14:22 - CONCLUSION: No acute intracranial findings Otis Pereyra MD Upper Extremity Ultrasound 04/04/17 0000 Signed Impressions: Service Date/Time: Tuesday, April 04, 2017 14:41 - CONCLUSION: 1. Nonocclusive superficial thrombus in the right distal cephalic vein. No deep venous thrombosis bilaterally. Giorgio Maldonado MD Lower Extremity Ultrasound 04/04/17 0000 Signed Impressions: Service Date/Time: Tuesday, April 04, 2017 14:22 - CONCLUSION: Normal examination. Giorgio Maldonado MD Gastrostomy Tube Change 04/01/17 0000 Signed Impressions: Service Date/Time: Saturday, April 01, 2017 13:49 - CONCLUSION: Conversion of a gastrostomy tube to a gastrojejunostomy tube. The tip of the tube is in the proximal jejunum. Anthony Alberto Jr., MD Abdomen X-Ray 03/30/17 0000 Signed Impressions: Service Date/Time: Thursday, March 30, 2017 15:03 - CONCLUSION: Some interval evacuation of the distal colon. Persistent dilation of the ascending and transverse colon with retained Gastrografin Otis Pereyra MD Enema w/Water Soluble 03/28/17 0000 Signed Impressions: Service Date/Time: Tuesday, March 28, 2017 10:28 - CONCLUSION: 1. Luminal narrowing of the sigmoid colon as described above. No evidence for obstruction. Earl Araujo MD Chest X-Ray 03/28/17 0000 Signed Impressions: Service Date/Time: Tuesday, March 28, 2017 04:46 - CONCLUSION: No significant change. Otis Espitia MD Abdomen/Pelvis CT 03/27/17 0000 Signed Impressions: Service Date/Time: Monday, March 27, 2017 12:25 - CONCLUSION: 1. Dilatation of portions of the colon with large amount of barium present. This is most consistent with an ileus. 2. Multiple nonobstructing left renal calculi again noted. 3. Infiltrate in both lung bases as well as small effusions. 4. Gastrostomy tube in place. Burke Charles MD Catheter Change 03/26/17 0000 Signed Impressions: Service Date/Time: February 15:10 - CONCLUSION: Uncomplicated gastrostomy tube exchange as above. Phillip Wheat MD Thoracic Spine CT 03/14/17 0000 Signed Impressions: Service Date/Time: Tuesday, March 14, 2017 16:31 - CONCLUSION: 1. There is a moderate compression deformity of T5 not significantly changed from CT in January. Osteopenia. Bilateral pleural effusions. Giorgio Maldonado MD Lumbar Spine CT 03/14/17 0000 Signed Impressions: Service Date/Time: Tuesday, March 14, 2017 16:31 - CONCLUSION: 1. Mild compression deformity of L1 which appears chronic. Osteopenia. No acute fracture seen. 2. Mild posterior disc protrusion at L5-S1, slightly worse on the left side with encroachment on the left lateral recess. Giorgio Maldonado MD CT Angiography 03/13/17 0000 Signed Impressions: Service Date/Time: Monday, March 13, 2017 15:12 - CONCLUSION: Interval development of left lower lobe collapse secondary to endobronchial soft tissue density with intermixed air lucency having the appearance of mucous plugging and debris. Bilateral pleural effusions, consolidation and atelectasis. There is no evidence of pulmonary embolus. Earl Araujo MD Procedures * 03/31/17 - sigmoidoscopy. (Sydni Mcnulty) Assessment and Plan Disease Oriented Problem List: (1) Gastroparesis (2) Squamous cell carcinoma of epiglottis (3) Nausea and vomiting (4) DM (diabetes mellitus) (5) Pneumonia (6) Depression (7) Failure to thrive in adult Symptom Scale: (1) Generalized weakness 0-10 Scale: Unable to quantify Comment: bedbound since December 2016. (2) Depression 0-10 Scale: Unable to quantify Comment: Off Effexor, recommend restarting KAHTERINE. (3) Pain 0-10 Scale: Unable to quantify Comment: due to malignancy, chronic back pain, bedbound status, etc. On Fentanyl patch 25 and PRN Dilaudid. Will monitor. . (4) Anxiety 0-10 Scale: Unable to quantify Pertinent Non-Medical Issues Psychosocial: Primary local psychosocial support is from his spouse. He has his own children in [place] and [place] Spiritual: Restorationism. Legal: No advance directives. would be proxy if patient becomes incapacitate. Ethical issues impacting care: Patient is currently capacitated to make his own health care decisions. . Important Contacts * Dana Santana (spouse) [phone]; [phone] * Lenora Matos (daughter) [phone] . Prognosis Patient has had 7 hospitalizations since November 2016, he has general debility, failure to thrive and multiple medical comorbidities, he has an early SCC of the epiglottis that per radiation oncology is potentially curable if he is able to get and survive treatment. . Code Status: Full Code Plan * Patient is not capacitated to make his health care decisions. Designated health care surrogate is Dana Santana and alternate surrogate is Lenora Matos. * FULL CODE - considering DNR, not yet ready. * Palliative care has met with and patient. He does not have insight to illness. In summary, desires continued aggressive, not ready to make DNR decision, left [place] D[place] form with at bedside. * SYMPTOMS: Pain:chronic pain in back, due to malignancy, chronic back pain, bedbound status, etc. On Fentanyl patch 25mcg decreased from 50mcg due to lethargy and PRN Dilaudid. Will monitor. .Decreased appetite: secondary to malignancy. G/J tube placed. NPO for aspiration pending speech eval. Weakness: due to comorbidities, cancer and frequent hospitalizations. Continue PT. * Patient with long history of depression and anxiety, was on Effexor 225mg PO daily (which cannot be crushed) on admission, would consider antidepressant given history- this has been resumed, though was not charted as given today . May consider reconsulted psych for recommendations. Patient has history of suicide attempt in recent past. Patient reports feeling "lonely on the inside." * Palliative care will continue to follow throughout hospital course to assist with symptom management and clarification of goals as needed. . (Sydni Mcnulty) Collaborating MD Comments . Chart reviewed. Case discussed with palliative care WILDLIFE BIOSTATION RESEARCH ECOLOGIST. I have reviewed above WILDLIFE BIOSTATION RESEARCH ECOLOGIST note and I concur. . (Xavi Morales MD) Sydni Mcnulty April 07, 2017 13:56 Xavi Morales MD April 28, 2017 12:35
--- NOTE | 2017-04-07 16:28 | HHI.HCPN ---
Adore Alberto LCSW and I met with Mr. Santana and his . Patient is more alert , remains confused. When asking about DC plans he repeatedly says "But I love her. I am not letting her go (referring to his )." He says he is dying, though unable to elaborate. He and his continue to struggle with decisions. 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 He is telling his he willing to complete radiation, supports. She she seems to want this. I again advised her he does not seem to really understand or follow the conversation completely. He does not have insight or judgement into his overall health condition. JESSA JOSEPH April 07, 2017 16:28
--- NOTE | 2017-04-07 19:26 | HHI.PR ---
Subjective Remarks 76 YOWm with COPD,Sq cell ca epiglotis, was on XRT Anxious at BS more awake Tolerates TF 45cc /hr considering Palliative care Objective Vital Signs Vital Signs Date Time Temp Pulse Resp B/P Pulse Ox O2 Delivery O2 Flow Rate FiO2 04/07/17 17:26 99 21 04/07/17 16:00 97.9 83 20 123/66 99 04/07/17 13:28 96.7 81 20 148/72 99 04/07/17 11:47 99 04/07/17 08:00 96.2 82 18 138/72 100 04/07/17 04:00 96.5 78 16 118/64 100 04/07/17 00:00 96.4 75 16 117/65 100 04/06/17 23:13 Nasal Cannula 3.00 04/06/17 21:05 75 04/06/17 21:05 Nasal Cannula 3.00 21 04/06/17 20:15 96.6 76 18 149/71 100 04/06/17 19:45 97.5 75 12 129/71 100 Nasal Cannula 3 04/06/17 19:30 76 12 126/71 100 Nasal Cannula 3 I/O 04/06/17 04/06/17 04/06/17 04/07/17 04/07/17 04/07/17 06:59 14:59 22:59 06:59 14:59 22:59 Intake Total 225 ml 360 ml 750 ml Output Total 680 ml 975 ml 275 ml 225 ml Balance -455 ml -615 ml 475 ml -225 ml Intake Oral 360 ml 0 ml IV Total 225 ml 100 ml Other 650 ml Output Urine Total 680 ml 975 ml 275 ml 225 ml Estimated Blood Loss 0 ml Other 0 ml Result Diagram: 04/05/17 0815 04/07/17 0635 Objective Remarks GENERAL: MBMN WM, NAD SKIN: Warm and dry. HEAD: Normocephalic. EYES: No scleral icterus. No injection or drainage. NECK: Supple, trachea midline. No JVD or lymphadenopathy. CARDIOVASCULAR: Regular rate and rhythm without murmurs, gallops, or rubs. RESPIRATORY: Breath sounds equal bilaterally. No accessory muscle use. GASTROINTESTINAL: Abdomen soft, non-tender, nondistended. MUSCULOSKELETAL: No cyanosis, or edema. BACK: Nontender without obvious deformity. No CVA tenderness. A/P Assessment and Plan COPD Lung Infilt Sq Cell ca Epiglotis DM Anxiety PLAN: DW pt and Cont Aerosol nebs Supplement 02 SQ Lovenox Monitor BS TF Bimal Borden MD April 07, 2017 19:26
[2017-04-07] MEDS: traZODone HCL 100 MG TAB PO SCH (21:29)
[2017-04-07] MEDS: ATORVASTATIN 40 MG TAB PO SCH (21:31)
[2017-04-07] MEDS: clonazePAM 0.5 MG TAB PO SCH (21:31)
[2017-04-07] MEDS: PANTOPRAZOLE SODIUM 40 MG VIAL IV PUSH SCH (21:31)
[2017-04-08] VITALS (9 sets, daily range): BP systolic 112–148; BP diastolic 58–84; PULSE 71–91; RESP 16–20; TEMP 96–99.2; O2SAT 95–100
[2017-04-08] MEDS: PIPERACIL-TAZO 4.5 GM PREMIX 100 ML IV SCH ×4 (01:20→20:53)
[2017-04-08] MEDS: MORPHINE SULFATE 15 MG TAB PO PRN ×2 (02:31→12:19)
[2017-04-08] MEDS ORDERED: HYDROmorphone HCL PF 1 MG/ML VIAL IV PUSH ONE (04:00)
[2017-04-08] MEDS: DILTIAZEM HCL 60 MG TAB PO SCH ×5 (04:18→18:00)
[2017-04-08] MEDS: LEVOTHYROXINE SODIUM 100 MCG TAB PO SCH (04:18)
[2017-04-08] MEDS: LEVOTHYROXINE SODIUM 125 MCG TAB PO SCH (04:19)
[2017-04-08] MEDS: INSULIN NovoLIN REGULAR SUPPLEMENTAL SCALE SQ SCH ×4 (06:20→21:02)
[2017-04-08 08:24] LABS: ANION GAP 9 MEQ/L (5-15); BICARBONATE 29.6 MEQ/L (21.0-32.0); CHLORIDE 93 MEQ/L (98-107); MAGNESIUM 1.9 MG/DL (1.5-2.5); POTASSIUM 4.5 MEQ/L (3.5-5.1); SODIUM (NA) 132 MEQ/L (136-145)
[2017-04-08 08:27] LABS: ALKALINE PHOSPHATASE 81 U/L (45-117); ALT (GPT) 37 U/L (12-78); AST (GOT) 18 U/L (15-37); GLOMERULAR FILTRATION RATE 146 ML/MIN (>89); TOTAL BILIRUBIN ADULT 0.3 MG/DL (0.2-1.0)
[2017-04-08] MEDS: VENLAFAXINE HCL XR 75 MG CAP PO SCH (08:34)
[2017-04-08] MEDS: predniSONE 20 MG TAB PO SCH ×2 (08:35→20:52)
[2017-04-08] MEDS: clonazePAM 0.5 MG TAB PO SCH ×2 (08:35→20:53)
[2017-04-08] MEDS: FUROSEMIDE 20 MG TAB PO SCH (08:35)
[2017-04-08] MEDS: TAMSULOSIN HCL 0.4 MG CAP PO SCH (08:35)
[2017-04-08] MEDS: MAGNESIUM OXIDE 400 MG TAB PO SCH (08:35)
[2017-04-08] MEDS: RIVAROXABAN 20 MG TAB PO SCH (08:35)
[2017-04-08] MEDS: AMIODARONE 200 MG TAB PO SCH (08:35)
[2017-04-08] MEDS: NYSTAT/DIPHENHY/LIDO MOUTHWASH (Adult) 120ML SWISH-SWAL SCH ×4 (08:36→21:00)
[2017-04-08] MEDS: BENEPROTEIN POWDER 1 PACK G-TUBE SCH ×3 (08:37→19:05)
[2017-04-08 08:45] LABS: BLOOD UREA NITROGEN 15 MG/DL (7-18)
[2017-04-08] MEDS: CALCIUM GLUCONATE 500 MG TAB PO SCH (08:50)
[2017-04-08] MEDS: LORazepam 1 MG TAB PEG PRN (10:10)
[2017-04-08] MEDS: cefTRIAXone INJ 1,000 MG in SODIUM CHLORIDE 0.9% INJ 100 ML IV SCH (12:20)
[2017-04-08] MEDS ORDERED: LORazepam 2 MG/ML VIAL ONE (13:15)
[2017-04-08] MEDS ORDERED: fentaNYL CITRATE 250 MCG/5 ML AMP ONE (13:16)
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
--- NOTE | 2017-04-08 14:22 | PD.RAD ---
Post Procedure Progress Note Pre Procedure Diagnosis: (1) Mass of epiglottis (2) Laryngeal mass (3) Severe protein-calorie malnutrition (4) Gastroparesis Post Procedure Diagnosis: (1) Mass of epiglottis (2) Laryngeal mass (3) Severe protein-calorie malnutrition (4) Gastroparesis Procedure Date: April 08, 2017 Supervising Radiologist: Eduard Ram Anesthesia: Local, Conscious Sedation Plan of Activity Patient to Unit: Nursing Unit Patient Condition: Fair See PACS Report for procedural detail/treatment Feeding Tube Gastro/Jejunostomy Replacement Kenyan: 22 Eduard Ram MD April 08, 2017 14:22
--- NOTE | 2017-04-08 16:48 | RADRPT ---
EXAM DATE/TIME: 04/08/2017 13:25 [place] COMPARISON: No previous studies available for comparison. INDICATIONS : Clogged TJ tube placed 7 days ago. MEDICAL HISTORY : 1. Aspiration 2. Gastroparesis 3. HTN 4. Afib 5. COPD 6. squamous cell cancer epiglottis 7. DM SURGICAL HISTORY : 1. Tonsillectomy 2. G tube placement 3. caardiac ablation 4. Hernia repair 5. Cholecystectomy ENCOUNTER: Subsequent ACUITY: 1 day PAIN SCORE: 0/10 FLUORO TIME: 5.3 minutes IMAGE SERIES: 2 SEDATION TIME: 30 minutes CONTRAST: 40 cc Omnipaque (iohexol) 350 MEDICATION(S): 1.) 100 mcg fentanyl (Sublimaze) IV 2.) 1 mg lorazepam (Ativan) IV DEVICE(S): 1.) 22 Sami Transgastric tube PROCEDURE : 1. Fluoroscopically guided gastrojejunostomy tube exchange. 2. Conscious sedation with continuous EKG and oximetry monitoring. The risks, benefits and alternatives to the procedure were explained and verbal and written consent w as obtained. The site was prepped in sterile fashion. Full sterile technique was used, including ca p, mask, sterile gloves and gown and a large sterile sheet. Hand hygiene and 2% chlorhexidine and/or betadine/alcohol prep was utilized per protocol for cutaneous antisepsis. The skin and subcutaneous tissues were infiltrated with local anesthetic solution. With fluoroscopic guidance a guidewire was passed through the previous gastrojejunostomy tube and a f resh tube was placed over the guidewire. The balloon was inflated with appropriate volume of saline. Injection of positive contrast demonstrates good position of the gastric and jejunal lumens of the tube. Conscious sedation was performed with the prescribed dosages and duration as above in the presence of an independent trained radiology nurse to assist in the monitoring of the patient. EKG and oximetry remained stable throughout the procedure. The patient tolerated the procedure well and there were n o complications. The patient was sent to post anesthesia recovery in stable condition. CONCLUSION: Uncomplicated gastrojejunostomy tube exchange as above. Eduard Ram MD on April 08, 2017 at 16:45 Board Certified Radiologist. This report was verified electronically.
--- NOTE | 2017-04-08 18:59 | HHI.PR ---
Subjective Remarks 76 YOWm with COPD,Sq cell ca epiglotis, was on XRT Anxious at BS more awake Tolerates TF 45cc /hr considering Palliative care Had J-G tube replaced as it got clogged Objective Vital Signs Vital Signs Date Time Temp Pulse Resp B/P Pulse Ox O2 Delivery O2 Flow Rate FiO2 04/08/17 11:50 96.3 71 20 148/73 99 04/08/17 08:40 Nasal Cannula 1.00 04/08/17 08:16 79 04/08/17 07:50 97.1 78 20 136/67 100 04/08/17 07:32 96 Nasal Cannula 1.00 04/08/17 04:00 97.1 75 17 145/78 99 04/08/17 00:00 96.5 77 18 112/68 95 04/07/17 21:35 95 Nasal Cannula 1.00 04/07/17 20:00 97.6 81 17 113/63 95 I/O 04/07/17 04/07/17 04/07/17 04/08/17 04/08/17 04/08/17 07:00 15:00 23:00 07:00 15:00 23:00 Output Total 225 ml 425 ml Balance -225 ml -425 ml Output Urine Total 225 ml 425 ml # Voids 1 # Bowel Movements 1 Result Diagram: 04/05/17 0815 04/08/17 0714 Objective Remarks GENERAL: MBMN WM, NAD SKIN: Warm and dry. HEAD: Normocephalic. EYES: No scleral icterus. No injection or drainage. NECK: Supple, trachea midline. No JVD or lymphadenopathy. CARDIOVASCULAR: Regular rate and rhythm without murmurs, gallops, or rubs. RESPIRATORY: Breath sounds equal bilaterally. No accessory muscle use. GASTROINTESTINAL: Abdomen soft, non-tender, nondistended. MUSCULOSKELETAL: No cyanosis, or edema. BACK: Nontender without obvious deformity. No CVA tenderness. A/P Assessment and Plan COPD Lung Infilt Sq Cell ca Epiglotis DM Anxiety PLAN: DW pt and Cont Aerosol nebs Supplement 02 SQ Lovenox Monitor BS TFrestarted Bimal Borden MD April 08, 2017 18:59
[2017-04-08] MEDS: traZODone HCL 100 MG TAB PO SCH (20:52)
[2017-04-08] MEDS: PANTOPRAZOLE SODIUM 40 MG VIAL IV PUSH SCH (20:53)
[2017-04-08] MEDS: ATORVASTATIN 40 MG TAB PO SCH (20:53)
[2017-04-08] MEDS: INSULIN DETEMIR 100 UNITS/ML VIAL SQ SCH (20:59)
[2017-04-09] VITALS (11 sets, daily range): BP systolic 119–162; BP diastolic 63–82; PULSE 72–81; RESP 16–20; TEMP 96.1–99.7; O2SAT 94–100
[2017-04-09] MEDS: REMOVE OLD PATCH-FENTANYL T-DERMAL SCH (01:00)
[2017-04-09] MEDS: PIPERACIL-TAZO 4.5 GM PREMIX 100 ML IV SCH ×4 (02:08→22:39)
[2017-04-09] MEDS: fentaNYL 25 MCG/HR PATCH T-DERMAL SCH (02:09)
[2017-04-09] MEDS: DILTIAZEM HCL 60 MG TAB PO SCH ×5 (02:09→23:00)
[2017-04-09] MEDS: MORPHINE SULFATE 15 MG TAB PO PRN ×4 (02:20→23:00)
[2017-04-09] MEDS: LEVOTHYROXINE SODIUM 100 MCG TAB PO SCH (05:13)
[2017-04-09] MEDS: LEVOTHYROXINE SODIUM 125 MCG TAB PO SCH (05:13)
[2017-04-09] MEDS: INSULIN NovoLIN REGULAR SUPPLEMENTAL SCALE SQ SCH ×4 (05:24→22:49)
[2017-04-09] MEDS: LORazepam 1 MG TAB PEG PRN (07:29)
[2017-04-09] MEDS: NYSTAT/DIPHENHY/LIDO MOUTHWASH (Adult) 120ML SWISH-SWAL SCH ×4 (08:33→22:51)
[2017-04-09] MEDS: TAMSULOSIN HCL 0.4 MG CAP PO SCH (08:33)
[2017-04-09] MEDS: VENLAFAXINE HCL XR 75 MG CAP PO SCH (08:34)
[2017-04-09] MEDS: clonazePAM 0.5 MG TAB PO SCH ×2 (08:34→22:40)
[2017-04-09] MEDS: RIVAROXABAN 20 MG TAB PO SCH (08:34)
[2017-04-09] MEDS: MAGNESIUM OXIDE 400 MG TAB PO SCH (08:34)
[2017-04-09] MEDS: predniSONE 20 MG TAB PO SCH ×2 (08:35→22:41)
[2017-04-09] MEDS: BENEPROTEIN POWDER 1 PACK G-TUBE SCH ×3 (08:35→18:37)
[2017-04-09] MEDS: AMIODARONE 200 MG TAB PO SCH (08:35)
[2017-04-09] MEDS: FUROSEMIDE 20 MG TAB PO SCH (08:35)
[2017-04-09] MEDS: CALCIUM GLUCONATE 500 MG TAB PO SCH (08:36)
[2017-04-09] MEDS: INSULIN DETEMIR 100 UNITS/ML VIAL SQ SCH ×2 (08:37→22:51)
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
[2017-04-09] MEDS ORDERED: ACETAMINOPHEN 500 MG CPLT PO PRN (10:00)
[2017-04-09] MEDS ORDERED: POTASSIUM PHOSPHATE MONOBASIC 500 MG TAB PO ONE (10:00)
[2017-04-09 11:51] LABS: VITAMIN B6 LESS THAN 2.0 ng/mL (2.1-21.7)
[2017-04-09] MEDS: cefTRIAXone INJ 1,000 MG in SODIUM CHLORIDE 0.9% INJ 100 ML IV SCH (13:34)
--- NOTE | 2017-04-09 20:12 | HHI.PR ---
Subjective Remarks 76 YOWm with COPD,Sq cell ca epiglotis, was on XRT Anxious at BS more awake Tolerates TF 45cc /hr Feels better today Objective Vital Signs Vital Signs Date Time Temp Pulse Resp B/P Pulse Ox O2 Delivery O2 Flow Rate FiO2 04/09/17 18:47 16 04/09/17 14:00 97.0 77 20 150/75 99 04/09/17 12:51 98 Nasal Cannula 2.00 04/09/17 12:17 96.2 76 19 127/73 100 04/09/17 08:50 97.3 78 20 121/63 99 04/09/17 08:35 75 04/09/17 08:30 Nasal Cannula 2.00 04/09/17 04:00 97.4 72 16 119/68 96 04/09/17 01:15 96.1 78 18 135/78 94 04/08/17 20:30 96.2 79 18 131/75 96 I/O 04/08/17 04/08/17 04/08/17 04/09/17 04/09/17 04/09/17 07:00 15:00 23:00 07:00 15:00 23:00 Intake Total 0 ml Output Total 1200 ml 450 ml 650 ml 850 ml 350 ml Balance -1200 ml -450 ml -650 ml -850 ml -350 ml Intake Oral 0 ml Output Urine Total 1200 ml 450 ml 650 ml 850 ml 350 ml # Voids 1 # Bowel Movements 1 1 1 Result Diagram: 04/05/17 0815 04/08/17 0714 Objective Remarks GENERAL: MBMN WM, NAD SKIN: Warm and dry. HEAD: Normocephalic. EYES: No scleral icterus. No injection or drainage. NECK: Supple, trachea midline. No JVD or lymphadenopathy. CARDIOVASCULAR: Regular rate and rhythm without murmurs, gallops, or rubs. RESPIRATORY: Breath sounds equal bilaterally. No accessory muscle use. GASTROINTESTINAL: Abdomen soft, non-tender, nondistended. MUSCULOSKELETAL: No cyanosis, or edema. BACK: Nontender without obvious deformity. No CVA tenderness. A/P Assessment and Plan COPD Lung Infilt Sq Cell ca Epiglotis DM Anxiety PLAN: DW pt and Cont Aerosol nebs Supplement 02 SQ Lovenox Monitor BS cont TF Bimal Borden MD April 09, 2017 20:12
[2017-04-09] MEDS: POTASSIUM PHOSPHATE MONOBASIC 500 MG TAB PO SCH (22:40)
[2017-04-09] MEDS: PANTOPRAZOLE SODIUM 40 MG VIAL IV PUSH SCH (22:41)
[2017-04-09] MEDS: ATORVASTATIN 40 MG TAB PO SCH (22:41)
[2017-04-09] MEDS: traZODone HCL 100 MG TAB PO SCH (22:41)
[2017-04-10] VITALS (9 sets, daily range): BP systolic 106–134; BP diastolic 56–69; PULSE 74–80; RESP 16–18; TEMP 96.2–97.3; O2SAT 98–99
[2017-04-10] MEDS: PIPERACIL-TAZO 4.5 GM PREMIX 100 ML IV SCH ×4 (02:30→20:55)
[2017-04-10] MEDS: LEVOTHYROXINE SODIUM 125 MCG TAB PO SCH (05:12)
[2017-04-10] MEDS: LEVOTHYROXINE SODIUM 100 MCG TAB PO SCH (05:12)
[2017-04-10] MEDS: DILTIAZEM HCL 60 MG TAB PO SCH ×3 (05:13→19:01)
[2017-04-10] MEDS: MORPHINE SULFATE 15 MG TAB PO PRN ×2 (05:21→19:01)
[2017-04-10] MEDS: INSULIN NovoLIN REGULAR SUPPLEMENTAL SCALE SQ SCH ×4 (06:13→20:58)
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
[2017-04-10 07:32] LABS: AUTOMATED NEUTROPHIL # 6.5 TH/MM3 (1.8-7.7); BASOPHIL % 0.1 % (0.0-2.0); EOSINOPHIL % 0.1 % (0.0-4.0); LYMPH % 1.5 % (9.0-44.0); LYMPHOCYTE # 0.1 TH/MM3 (1.0-4.8); MEAN CELL VOLUME 85.4 FL (80.0-100.0); MEAN CORPUSCULAR HEMOGLOBIN 28.7 PG (27.0-34.0); MEAN CORPUSCULAR HGB CONC 33.6 % (32.0-36.0); MONO % 9.1 % (0.0-8.0); NEUT % 89.2 % (16.0-70.0); PLATELET COUNT 115 TH/MM3 (150-450); RED BLOOD COUNT 3.75 MIL/MM3 (4.50-5.90); WHITE BLOOD COUNT 7.3 TH/MM3 (4.0-11.0)
[2017-04-10 07:33] LABS: HEMO FLAGS AUTO DIFF
[2017-04-10 08:11] LABS: BANDS 9 % (0-6); MYELOCYTES 1 % (0-0); NEUTROPHIL # MANUAL DIFF 6.4 TH/MM3 (1.8-7.7); POLYS (SEG NEUTROPHILS) 78 % (16-70); WBC DIFF SAMPLE 100
[2017-04-10 08:12] LABS: ACANTHOCYTES OCC (NORMAL); OVALOCYTES 1+ (NORMAL); PLATELET ESTIMATE SMEAR LOW (NORMAL); PLATELET MORPHOLOGY NORMAL (NORMAL); SCAN/DIFF FINAL DIFF MANUAL
[2017-04-10 08:15] LABS: BICARBONATE 37.2 MEQ/L (21.0-32.0)
[2017-04-10] MEDS: CALCIUM GLUCONATE 500 MG TAB PO SCH (08:37)
[2017-04-10] MEDS: predniSONE 20 MG TAB PO SCH ×2 (08:37→21:08)
[2017-04-10] MEDS: POTASSIUM PHOSPHATE MONOBASIC 500 MG TAB PO SCH ×2 (08:37→20:55)
[2017-04-10] MEDS: FUROSEMIDE 20 MG TAB PO SCH (08:37)
[2017-04-10] MEDS: TAMSULOSIN HCL 0.4 MG CAP PO SCH (08:37)
[2017-04-10] MEDS: VENLAFAXINE HCL XR 75 MG CAP PO SCH (08:37)
[2017-04-10] MEDS: RIVAROXABAN 20 MG TAB PO SCH (08:37)
[2017-04-10] MEDS: clonazePAM 0.5 MG TAB PO SCH ×2 (08:37→20:55)
[2017-04-10] MEDS: NYSTAT/DIPHENHY/LIDO MOUTHWASH (Adult) 120ML SWISH-SWAL SCH ×4 (08:38→21:00)
[2017-04-10] MEDS: BENEPROTEIN POWDER 1 PACK G-TUBE SCH ×3 (08:38→19:10)
[2017-04-10] MEDS: AMIODARONE 200 MG TAB PO SCH (08:38)
[2017-04-10] MEDS: INSULIN DETEMIR 100 UNITS/ML VIAL SQ SCH ×2 (08:55→21:10)
--- NOTE | 2017-04-10 09:10 | HHI.PR ---
Objective Vital Signs Date Time Temp Pulse Resp B/P Pulse Ox O2 Delivery O2 Flow Rate FiO2 04/10/17 07:27 75 04/10/17 04:00 77 17 134/67 98 04/10/17 00:00 97.3 80 18 134/62 99 04/09/17 21:30 94 04/09/17 20:45 95 Nasal Cannula 1.00 04/09/17 20:37 81 04/09/17 20:00 97.3 81 17 147/82 95 04/09/17 18:47 16 04/09/17 14:00 97.0 77 20 150/75 99 04/09/17 12:51 98 Nasal Cannula 2.00 04/09/17 12:17 96.2 76 19 127/73 100 I/O 04/09/17 04/09/17 04/09/17 04/10/17 04/10/17 04/10/17 07:00 15:00 23:00 07:00 15:00 23:00 Intake Total 280 ml 440 ml Output Total 650 ml 850 ml 950 ml 800 ml Balance -650 ml -850 ml -670 ml -360 ml Intake Oral 240 ml IV Total 160 ml 120 ml Tube Feeding 120 ml 80 ml Output Urine Total 650 ml 850 ml 950 ml 800 ml # Bowel Movements 1 0 0 Result Diagram: 04/10/1735 04/10/1735 Objective Remarks falls back to sleep easily Assessment and Plan Assessment and Plan imp for mri all neg and emg they will decide if want needs thyroid rx some lexapro for depression consider lower narcotics a little he is a little overmedicated will fu 04/10/17 some delsusions for two weeks overmedicated with trazadone klonopin prn ativan fentanykl patch and mso4 i lowered trazadone and would rec lowering narcotics and consider taper klonopin sleeping ok acc to wshe will consider emg and if she wants to lower pain meds yrs of lbp i will fu thursday Phillip Gill MD April 10, 2017 09:10
[2017-04-10] MEDS: LORazepam 1 MG TAB PEG PRN (10:28)
[2017-04-10] MEDS: cefTRIAXone INJ 1,000 MG in SODIUM CHLORIDE 0.9% INJ 100 ML IV SCH (14:00)
[2017-04-10] MEDS: DEXTROSE 50% IN WATER 50 ML VIAL(D50) IV PUSH PRN (14:37)
--- NOTE | 2017-04-10 16:30 | HHI.PYPN ---
Subjective Remarks Patient seen for psychiatric reevaluation. Chart reviewed. Patient is found laying in bed, calm and cooperative, reports good mood, however unable to recognize me, disoriented in time and pace, he does not know the reason of hospitalization, seems to be disorganized with frequent loosening of associations, visible attention deficits and fluctuation of consciousness. Periodic lucidity reported, as well as agitation and aggressive behavior. Review of Systems Other No somatic complains Objective Alert: Yes Crossroads: Person Mood: Calm Affect: Labile Memory Intact: Comment (Memory is impaired ) Hallucinations: Other (None) Delusions: No Delusion Type: Other (none illicited ) Suicidal: Ideation (denies ) Homicidal: Ideation (denies ) Insight/Judgment poor Labs Test 04/10/17 06:35 White Blood Count 7.3 TH/MM3 Red Blood Count 3.75 MIL/MM3 Hemoglobin 10.8 GM/DL Hematocrit 32.0 % Mean Corpuscular Volume 85.4 FL Mean Corpuscular Hemoglobin 28.7 PG Mean Corpuscular Hemoglobin 33.6 % Concent Red Cell Distribution Width 22.0 % Platelet Count 115 TH/MM3 Mean Platelet Volume 7.5 FL Neutrophils (%) (Auto) 89.2 % Lymphocytes (%) (Auto) 1.5 % Monocytes (%) (Auto) 9.1 % Eosinophils (%) (Auto) 0.1 % Basophils (%) (Auto) 0.1 % Neutrophils # (Auto) 6.5 TH/MM3 Lymphocytes # (Auto) 0.1 TH/MM3 Monocytes # (Auto) 0.7 TH/MM3 Eosinophils # (Auto) 0.0 TH/MM3 Basophils # (Auto) 0.0 TH/MM3 CBC Comment AUTO DIFF Differential Total Cells 100 Counted Neutrophils % (Manual) 78 % Band Neutrophils % 9 % Lymphocytes % 3 % Monocytes % 9 % Neutrophils # (Manual) 6.4 TH/MM3 Myelocytes 1 % Differential Comment FINAL DIFF MANUAL Platelet Estimate LOW Platelet Morphology Comment NORMAL Basophilic Stippling FAINT Ovalocytes 1+ Acanthocytes OCC Sodium Level 134 MEQ/L Potassium Level 4.0 MEQ/L Chloride Level 92 MEQ/L Carbon Dioxide Level 37.2 MEQ/L Anion Gap 5 MEQ/L Blood Urea Nitrogen 16 MG/DL Creatinine 0.43 MG/DL Estimat Glomerular Filtration 193 ML/MIN Rate Random Glucose 110 MG/DL Calcium Level 8.0 MG/DL Phosphorus Level 2.0 MG/DL Magnesium Level 2.0 MG/DL Vitals/IOs Vital Signs Date Time Temp Pulse Resp B/P Pulse Ox O2 Delivery O2 Flow Rate FiO2 04/10/17 12:00 96.6 74 16 127/69 98 04/10/17 10:00 Nasal Cannula 2.00 04/07/17 17:26 21 Intake and Output 04/09/17 04/09/17 04/10/17 08:00 16:00 00:00 Intake Total 280 ml Output Total 650 ml 850 ml 950 ml Balance -650 ml -850 ml -670 ml Assessment & Plan Problem List: (1) Delirium due to another medical condition Assessment & Plan: Patient shows disorientation, confusion, attention deficit and fluctuation of consciousness, disorganized. Visual hallucinations has been reported by staff, as long as agitation and aggressive behavior. Patient is far form baseline. Presentation is suggestive of delirium mos probably related with medical conditions. Polypharmacy can also be part of the problems, specially the use of steroids. Will discontinue Trazodone. Will add Seroquel 25 bid for psychosis and behavioral control, also to help with sleep. Will continue Follow up. ICD Code: F05 (2) History of depression ICD Code: Z86.59 Assessment & Plan Estimated LOS: days Justification for Cont. Inpt. No admission indicated Olayinka Arriaza MD April 10, 2017 16:30
--- NOTE | 2017-04-10 17:00 | HHI.HCPN ---
Reason for visit a. To assist with evaluation and management of symptoms including: weakness , pain, anxiety. b. To assist medical decision maker(s) with: better understanding of current medical conditions; weighing benefits/burdens of medical treatment options; making medical treatment decisions. . (JESSA JOSEPH) Subjective/Interval History Patient seen and examined in room to follow up on goals. at bedside. Neurology has ordered EMG, patient/ have declined to date, indicates she may consider upon DC in Dr. Gill's office. Vital signs stable. Currently on nasal cannula. Labs stable. Tolerating tube feedings. Patient sleeps most of my visit. . Family/friend interactions desires continued aggressive care in hopes patient can return home with her next week with home health. . (JESSA JOSEPH) Advance Directives Living Will: Never completed Health Care Surrogate: Copy in medical record Durable Power of Black Topper: Never completed (JESSA JOSEPH) Advance Directive Specifics Date completed: 02/18/17 . Health Care Surrogate(s): Designated health care surrogate is Dana Santana and alternate surrogate is Lenora Matos. . Significant change in goals: Palliative care met with : In summary, desires continued aggressive care in hopes patient can return home with her next week with home health. . (JESSA JOSEPH) Objective Vital Signs Date Time Temp Pulse Resp B/P Pulse Ox O2 Delivery O2 Flow Rate FiO2 04/10/17 12:00 96.6 74 16 127/69 98 04/10/17 10:00 98 Nasal Cannula 2.00 04/10/17 08:00 96.6 78 18 122/66 98 04/10/17 07:27 75 04/10/17 04:00 77 17 134/67 98 04/10/17 00:00 97.3 80 18 134/62 99 04/09/17 21:30 94 04/09/17 20:45 95 Nasal Cannula 1.00 04/09/17 20:37 81 04/09/17 20:00 97.3 81 17 147/82 95 04/09/17 18:47 16 Intake & Output 04/10/17 04/10/17 06:59 18:59 Intake Total 720 ml Output Total 1400 ml Balance -680 ml Intake Oral 240 ml IV Total 280 ml Tube Feeding 200 ml Output Urine Total 1400 ml # Bowel Movements 0 Physical Exam CONSTITUTIONAL/GENERAL: This is an thin, frail, lethargic male, in no apparent distress. TUBES/LINES/DRAINS: NC, PIV, condom catheter, G/J tube, specialty bed. CARDIOVASCULAR: Regular rate and rhythm without murmurs. No peripheral edema. RESPIRATORY/CHEST: Symmetric, unlabored respirations. On 2 L nasal cannula. Breath sounds clear, slightly diminished. GASTROINTESTINAL: Abdomen soft, non-tender, nondistended. +G/J tube, tube feed infusing. Bowel sounds normoactive. MUSCULOSKELETAL: Extremities without clubbing, cyanosis, or edema. No mottling or clubbing. NEUROLOGICAL: Lethargic, arouses some for interaction. Remains confused. Poor insight to hospitalization. Very weak lower extremities able to move toes, feet slightly. Better strength upper extremities, slight generalized weakness. PSYCHIATRIC: No apparent depression or anxiety during exam today. . (JESSA JOSEPH-Shawn) Diagnostic Tests Laboratory Laboratory Tests Test 04/08/17 04/10/17 07:14 06:35 Sodium Level 132 MEQ/L 134 MEQ/L (136-145) (136-145) Potassium Level 4.5 MEQ/L 4.0 MEQ/L (3.5-5.1) (3.5-5.1) Chloride Level 93 MEQ/L 92 MEQ/L (98-107) (98-107) Carbon Dioxide Level 29.6 MEQ/L 37.2 MEQ/L (21.0-32.0) (21.0-32.0) Anion Gap 9 MEQ/L (5-15) 5 MEQ/L (5-15) Blood Urea Nitrogen 15 MG/DL (7-18) 16 MG/DL (7-18) Creatinine 0.55 MG/DL 0.43 MG/DL (0.60-1.30) (0.60-1.30) Estimat Glomerular Filtration 146 ML/MIN 193 ML/MIN Rate (>89) (>89) Random Glucose 298 MG/DL 110 MG/DL (74-106) (74-106) Calcium Level 8.0 MG/DL 8.0 MG/DL (8.5-10.1) (8.5-10.1) Phosphorus Level 1.5 MG/DL 2.0 MG/DL (2.5-4.9) (2.5-4.9) Magnesium Level 1.9 MG/DL 2.0 MG/DL (1.5-2.5) (1.5-2.5) Total Bilirubin 0.3 MG/DL (0.2-1.0) Aspartate Amino Transf 18 U/L (15-37) (AST/SGOT) Alanine Aminotransferase 37 U/L (12-78) (ALT/SGPT) Alkaline Phosphatase 81 U/L (45-117) Total Protein 5.0 GM/DL (6.4-8.2) Albumin 2.1 GM/DL (3.4-5.0) White Blood Count 7.3 TH/MM3 (4.0-11.0) Red Blood Count 3.75 MIL/MM3 (4.50-5.90) Hemoglobin 10.8 GM/DL (13.0-17.0) Hematocrit 32.0 % (39.0-51.0) Mean Corpuscular Volume 85.4 FL (80.0-100.0) Mean Corpuscular Hemoglobin 28.7 PG (27.0-34.0) Mean Corpuscular Hemoglobin 33.6 % Concent (32.0-36.0) Red Cell Distribution Width 22.0 % (11.6-17.2) Platelet Count 115 TH/MM3 (150-450) Mean Platelet Volume 7.5 FL (7.0-11.0) Neutrophils (%) (Auto) 89.2 % (16.0-70.0) Lymphocytes (%) (Auto) 1.5 % (9.0-44.0) Monocytes (%) (Auto) 9.1 % (0.0-8.0) Eosinophils (%) (Auto) 0.1 % (0.0-4.0) Basophils (%) (Auto) 0.1 % (0.0-2.0) Neutrophils # (Auto) 6.5 TH/MM3 (1.8-7.7) Lymphocytes # (Auto) 0.1 TH/MM3 (1.0-4.8) Monocytes # (Auto) 0.7 TH/MM3 (0-0.9) Eosinophils # (Auto) 0.0 TH/MM3 (0-0.4) Basophils # (Auto) 0.0 TH/MM3 (0-0.2) CBC Comment AUTO DIFF Differential Total Cells 100 Counted Neutrophils % (Manual) 78 % (16-70) Band Neutrophils % 9 % (0-6) Lymphocytes % 3 % (9-44) Monocytes % 9 % (0-8) Neutrophils # (Manual) 6.4 TH/MM3 (1.8-7.7) Myelocytes 1 % (0-0) Differential Comment FINAL DIFF MANUAL Platelet Estimate LOW (NORMAL) Platelet Morphology Comment NORMAL (NORMAL) Basophilic Stippling FAINT (NORMAL) Ovalocytes 1+ (NORMAL) Acanthocytes OCC (NORMAL) (JESSA JOSEPH-C) Result Diagram: 04/10/17 0635 04/10/1735 Imaging Last Impressions Tube Change 04/08/17 0000 Signed Impressions: Service Date/Time: Saturday, April 08, 2017 13:25 - CONCLUSION: Uncomplicated gastrojejunostomy tube exchange as above. Eduard Ram MD Thoracic Spine MRI 04/06/171606 Signed Impressions: Service Date/Time: Thursday, April 06, 2017 14:22 - CONCLUSION: Subacute age moderate severity compression fracture at T5. Small central to left paracentral disc protrusion at T9-10. Otis Pereyra MD Cervical Spine MRI 04/06/171606 Signed Impressions: Service Date/Time: Wednesday, April 05, 2017 14:22 - CONCLUSION: Canal stenosis related to broad disc protrusion and dorsal ligamentous hypertrophy, most significantly present at C4-5 with less significant changes at the adjacent levels. No evidence of cord abnormality or enhancement to suggest injury or metastatic disease. Otis Pereyra MD Lumbar Spine MRI 04/06/17 Signed Impressions: Service Date/Time: Wednesday, April 05, 2017 14:22 - CONCLUSION: No acute bony findings. Minimal disc disease L5-S1 without significant anatomic consequence. Otis Pereyra MD Brain MRI 04/06/17 Signed Impressions: Service Date/Time: Wednesday, April 05, 2017 14:22 - CONCLUSION: No acute intracranial findings Otis Pereyra MD Upper Extremity Ultrasound 04/04/17 Signed Impressions: Service Date/Time: Tuesday, April 04, 2017 14:41 - CONCLUSION: 1. Nonocclusive superficial thrombus in the right distal cephalic vein. No deep venous thrombosis bilaterally. Giorgio Maldonado MD Lower Extremity Ultrasound 04/04/17 Signed Impressions: Service Date/Time: Tuesday, April 04, 2017 14:22 - CONCLUSION: Normal examination. Giorgio Maldonado MD Gastrostomy Tube Change 04/01/17 Signed Impressions: Service Date/Time: Saturday, April 01, 2017 13:49 - CONCLUSION: Conversion of a gastrostomy tube to a gastrojejunostomy tube. The tip of the tube is in the proximal jejunum. Anthony Alberto Jr., MD Abdomen X-Ray 03/30/17 Signed Impressions: Service Date/Time: Thursday, March 30, 2017 15:03 - CONCLUSION: Some interval evacuation of the distal colon. Persistent dilation of the ascending and transverse colon with retained Gastrografin Otis Pereyra MD Enema w/Water Soluble 03/28/17 Signed Impressions: Service Date/Time: Tuesday, March 28, 2017 10:28 - CONCLUSION: 1. Luminal narrowing of the sigmoid colon as described above. No evidence for obstruction. Earl Araujo MD Chest X-Ray 03/28/17 Signed Impressions: Service Date/Time: Tuesday, March 28, 2017 04:46 - CONCLUSION: No significant change. Otis Espitia MD Abdomen/Pelvis CT 03/27/17 0000 Signed Impressions: Service Date/Time: Monday, March 27, 2017 12:25 - CONCLUSION: 1. Dilatation of portions of the colon with large amount of barium present. This is most consistent with an ileus. 2. Multiple nonobstructing left renal calculi again noted. 3. Infiltrate in both lung bases as well as small effusions. 4. Gastrostomy tube in place. Burke Charles MD Catheter Change 03/26/17 0000 Signed Impressions: Service Date/Time: February 15:10 - CONCLUSION: Uncomplicated gastrostomy tube exchange as above. Phillip Wheat MD Thoracic Spine CT 03/14/17 0000 Signed Impressions: Service Date/Time: Tuesday, March 14, 2017 16:31 - CONCLUSION: 1. There is a moderate compression deformity of T5 not significantly changed from CT in January. Osteopenia. Bilateral pleural effusions. Giorgio Maldonado MD Lumbar Spine CT 03/14/17 0000 Signed Impressions: Service Date/Time: Tuesday, March 14, 2017 16:31 - CONCLUSION: 1. Mild compression deformity of L1 which appears chronic. Osteopenia. No acute fracture seen. 2. Mild posterior disc protrusion at L5-S1, slightly worse on the left side with encroachment on the left lateral recess. Giorgio Maldonado MD CT Angiography 03/13/17 0000 Signed Impressions: Service Date/Time: Monday, March 13, 2017 15:12 - CONCLUSION: Interval development of left lower lobe collapse secondary to endobronchial soft tissue density with intermixed air lucency having the appearance of mucous plugging and debris. Bilateral pleural effusions, consolidation and atelectasis. There is no evidence of pulmonary embolus. Earl Araujo MD . Procedures * 03/31/17 - sigmoidoscopy. (JESSA JOSEPH) Assessment and Plan Disease Oriented Problem List: (1) Gastroparesis (2) Squamous cell carcinoma of epiglottis (3) Nausea and vomiting (4) DM (diabetes mellitus) (5) Pneumonia (6) Depression (7) Failure to thrive in adult Symptom Scale: (1) Generalized weakness 0-10 Scale: Unable to quantify Comment: bedbound since December 2016. (2) Depression 0-10 Scale: Unable to quantify Comment: On Effexor. (3) Pain 0-10 Scale: Unable to quantify Comment: due to malignancy, chronic back pain, bedbound status, etc. . (4) Anxiety 0-10 Scale: Unable to quantify Pertinent Non-Medical Issues Psychosocial: Primary local psychosocial support is from his spouse. He has his own children in [place] and [place] Spiritual: [employer]. Legal: No advance directives. would be proxy if patient becomes incapacitate. Ethical issues impacting care: Patient is currently capacitated to make his own health care decisions. . Important Contacts * Dana Santana (spouse) [phone]; [phone] * Lenora Matos (daughter) [phone] . Prognosis Patient has had 7 hospitalizations since November 2016, he has general debility, failure to thrive and multiple medical comorbidities, he has an early SCC of the epiglottis that per radiation oncology is potentially curable if he is able to get and survive treatment. . Code Status: Full Code Plan * Patient is not capacitated to make his health care decisions. Designated health care surrogate is Dana Santana and alternate surrogate is Lenora Matos. * FULL CODE * Palliative care met with : In summary, desires continued aggressive care in hopes patient can return home with her next week with home health. * SYMPTOMS: Pain:chronic pain in back, due to malignancy, chronic back pain, bedbound status, etc. Will monitor. Decreased appetite: secondary to malignancy. G/J tube placed. Tolerating tube feedings. Weakness: due to comorbidities, cancer and frequent hospitalizations. Continue PT. * Palliative care will continue to follow throughout hospital course to assist with symptom management and clarification of goals as needed. . (JESSA JOSEPH) Time Spent Total Floor Time (mins): 45 Face to Face Time (mins): 30 >50% Counseling/Coord of Care: Yes (JESSA JOSEPH) Attestation To help prompt me to consider important information that might be impacting today's encounter and assessment, information from prior notes written by myself or my colleagues may have been "brought forward" into today's note. My signature on this note, however, is an attestation that I personally performed the exam, history, and/or decision-making noted today, and, unless otherwise indicated, the interactions with patient, family, and staff as well as the review of records all occurred today. I also attest that the listed assessment and stated plan reflect my best clinical judgment today based on the combination of historical information, prior notes, and today's exam/ interactions. When time spent is documented, it refers only to time spent today by the signer, or if indicated, combined time spent today by collaborating physician/nurse practitioner. . (JESSA JOSEPH) Collaborating MD Comments . Chart reviewed. Case discussed with palliative care WAITER/WAITRESS CAFETERIA. I have reviewed above WAITER/WAITRESS CAFETERIA note and I concur. . (Xavi Morales MD) JESSA JOSEPH April 10, 2017 17:00 Xavi Morales MD April 28, 2017 12:34
--- NOTE | 2017-04-10 18:11 | HHI.PR ---
Subjective Remarks 76 YOWm with COPD,Sq cell ca epiglotis, was on XRT Anxious at BS more awake Tolerates TF 45cc /hr Tired planning to take him home with home health Objective Vital Signs Vital Signs Date Time Temp Pulse Resp B/P Pulse Ox O2 Delivery O2 Flow Rate FiO2 04/10/17 16:00 96.4 76 17 120/56 99 04/10/17 12:00 96.6 74 16 127/69 98 04/10/17 10:00 98 Nasal Cannula 2.00 04/10/17 08:38 Nasal Cannula 2.00 04/10/17 08:00 96.6 78 18 122/66 98 04/10/17 07:27 75 04/10/17 04:00 77 17 134/67 98 04/10/17 00:00 97.3 80 18 134/62 99 04/09/17 21:30 94 04/09/17 20:45 95 Nasal Cannula 1.00 04/09/17 20:37 81 04/09/17 20:00 97.3 81 17 147/82 95 04/09/17 18:47 16 I/O 04/09/17 04/09/17 04/09/17 04/10/17 04/10/17 04/10/17 07:00 15:00 23:00 07:00 15:00 23:00 Intake Total 280 ml 440 ml 924 ml Output Total 650 ml 850 ml 950 ml 800 ml 55 ml Balance -650 ml -850 ml -670 ml -360 ml 869 ml Intake Oral 240 ml 120 ml IV Total 160 ml 120 ml Tube Feeding 120 ml 80 ml 804 ml Output Urine Total 650 ml 850 ml 950 ml 800 ml 55 ml # Bowel Movements 1 0 0 0 Result Diagram: 04/10/1735 04/10/1735 Objective Remarks GENERAL: MBMN WM, NAD SKIN: Warm and dry. HEAD: Normocephalic. EYES: No scleral icterus. No injection or drainage. NECK: Supple, trachea midline. No JVD or lymphadenopathy. CARDIOVASCULAR: Regular rate and rhythm without murmurs, gallops, or rubs. RESPIRATORY: Breath sounds equal bilaterally. No accessory muscle use. GASTROINTESTINAL: Abdomen soft, non-tender, nondistended. MUSCULOSKELETAL: No cyanosis, or edema. BACK: Nontender without obvious deformity. No CVA tenderness. A/P Assessment and Plan COPD Lung Infilt Sq Cell ca Epiglotis DM Anxiety PLAN: DW pt and Cont Aerosol nebs Supplement 02 SQ Lovenox Monitor BS cont TF DC plans underway. Bimal Borden MD April 10, 2017 18:11
[2017-04-10] MEDS: SENNOSIDES 8.6 MG TAB PO PRN (19:00)
[2017-04-10] MEDS: ATORVASTATIN 40 MG TAB PO SCH (20:55)
[2017-04-10] MEDS: PANTOPRAZOLE SODIUM 40 MG VIAL IV PUSH SCH (20:56)
[2017-04-10] MEDS ORDERED: traZODone HCL 50 MG TAB PO SCH (21:00)
[2017-04-11] VITALS (9 sets, daily range): BP systolic 109–129; BP diastolic 57–71; PULSE 76–81; RESP 16–18; TEMP 95.6–98.1; O2SAT 96–100
[2017-04-11] MEDS: DILTIAZEM HCL 60 MG TAB PO SCH ×4 (00:45→18:41)
[2017-04-11] MEDS: PIPERACIL-TAZO 4.5 GM PREMIX 100 ML IV SCH ×4 (02:41→21:27)
[2017-04-11] MEDS: MORPHINE SULFATE 15 MG TAB PO PRN ×3 (02:46→18:48)
[2017-04-11] MEDS: LEVOTHYROXINE SODIUM 125 MCG TAB PO SCH (05:22)
[2017-04-11] MEDS: LEVOTHYROXINE SODIUM 100 MCG TAB PO SCH (05:22)
[2017-04-11] MEDS: INSULIN NovoLIN REGULAR SUPPLEMENTAL SCALE SQ SCH ×4 (06:07→21:00)
[2017-04-11] MEDS: NYSTAT/DIPHENHY/LIDO MOUTHWASH (Adult) 120ML SWISH-SWAL SCH ×4 (09:00→21:00)
[2017-04-11] MEDS: BENEPROTEIN POWDER 1 PACK G-TUBE SCH ×3 (09:00→18:00)
[2017-04-11] MEDS: clonazePAM 0.5 MG TAB PO SCH ×2 (09:06→21:28)
[2017-04-11] MEDS: QUEtiapine FUMARATE 25 MG TAB PO SCH ×2 (09:07→12:02)
[2017-04-11] MEDS: FUROSEMIDE 20 MG TAB PO SCH (09:07)
[2017-04-11] MEDS: POTASSIUM PHOSPHATE MONOBASIC 500 MG TAB PO SCH ×2 (09:07→21:29)
[2017-04-11] MEDS: VENLAFAXINE HCL XR 75 MG CAP PO SCH (09:07)
[2017-04-11] MEDS: predniSONE 20 MG TAB PO SCH ×2 (09:07→21:29)
[2017-04-11] MEDS: TAMSULOSIN HCL 0.4 MG CAP PO SCH (09:07)
[2017-04-11] MEDS: AMIODARONE 200 MG TAB PO SCH (09:07)
[2017-04-11] MEDS: RIVAROXABAN 20 MG TAB PO SCH (09:07)
[2017-04-11] MEDS: INSULIN DETEMIR 100 UNITS/ML VIAL SQ SCH ×2 (09:11→21:00)
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
[2017-04-11] MEDS: cefTRIAXone INJ 1,000 MG in SODIUM CHLORIDE 0.9% INJ 100 ML IV SCH (12:02)
[2017-04-11] MEDS: PANTOPRAZOLE SODIUM 40 MG VIAL IV PUSH SCH (21:28)
[2017-04-11] MEDS: ATORVASTATIN 40 MG TAB PO SCH (21:28)
[2017-04-12] VITALS (8 sets, daily range): BP systolic 108–128; BP diastolic 58–72; PULSE 70–77; RESP 16–20; TEMP 95.4–97; O2SAT 96–100
[2017-04-12] MEDS: DILTIAZEM HCL 60 MG TAB PO SCH ×4 (00:53→17:30)
[2017-04-12] MEDS: fentaNYL 25 MCG/HR PATCH T-DERMAL SCH (00:54)
[2017-04-12] MEDS: REMOVE OLD PATCH-FENTANYL T-DERMAL SCH (00:55)
[2017-04-12] MEDS: PIPERACIL-TAZO 4.5 GM PREMIX 100 ML IV SCH ×4 (02:46→19:41)
[2017-04-12] MEDS: MORPHINE SULFATE 15 MG TAB PO PRN ×2 (02:51→21:35)
[2017-04-12] MEDS: LEVOTHYROXINE SODIUM 100 MCG TAB PO SCH (05:44)
[2017-04-12] MEDS: LEVOTHYROXINE SODIUM 125 MCG TAB PO SCH (05:44)
[2017-04-12] MEDS: INSULIN NovoLIN REGULAR SUPPLEMENTAL SCALE SQ SCH ×4 (05:51→19:49)
[2017-04-12] MEDS: INSULIN DETEMIR 100 UNITS/ML VIAL SQ SCH ×2 (09:00→19:46)
[2017-04-12] MEDS: clonazePAM 0.5 MG TAB PO SCH ×2 (09:26→19:42)
[2017-04-12] MEDS: FUROSEMIDE 20 MG TAB PO SCH (09:26)
[2017-04-12] MEDS: NYSTAT/DIPHENHY/LIDO MOUTHWASH (Adult) 120ML SWISH-SWAL SCH ×4 (09:26→19:41)
[2017-04-12] MEDS: AMIODARONE 200 MG TAB PO SCH (09:26)
[2017-04-12] MEDS: TAMSULOSIN HCL 0.4 MG CAP PO SCH (09:26)
[2017-04-12] MEDS: predniSONE 20 MG TAB PO SCH ×2 (09:26→19:44)
[2017-04-12] MEDS: RIVAROXABAN 20 MG TAB PO SCH (09:26)
[2017-04-12] MEDS: POTASSIUM PHOSPHATE MONOBASIC 500 MG TAB PO SCH ×2 (09:27→19:44)
[2017-04-12] MEDS: QUEtiapine FUMARATE 25 MG TAB PO SCH ×2 (09:27→12:10)
[2017-04-12] MEDS: VENLAFAXINE HCL XR 75 MG CAP PO SCH (09:27)
[2017-04-12] MEDS: cefTRIAXone INJ 1,000 MG in SODIUM CHLORIDE 0.9% INJ 100 ML IV SCH (12:09)
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
[2017-04-12] MEDS: BENEPROTEIN POWDER 1 PACK G-TUBE SCH (18:00)
[2017-04-12] MEDS: PANTOPRAZOLE SODIUM 40 MG VIAL IV PUSH SCH (19:41)
[2017-04-12] MEDS: ATORVASTATIN 40 MG TAB PO SCH (19:42)
[2017-04-13] VITALS (10 sets, daily range): BP systolic 108–128; BP diastolic 56–73; PULSE 73–84; RESP 14–17; TEMP 96.5–97.6; O2SAT 93–97
[2017-04-13] MEDS: DILTIAZEM HCL 60 MG TAB PO SCH ×4 (00:09→17:22)
[2017-04-13] MEDS: PIPERACIL-TAZO 4.5 GM PREMIX 100 ML IV SCH ×4 (02:21→21:59)
[2017-04-13] MEDS: LEVOTHYROXINE SODIUM 100 MCG TAB PO SCH (05:25)
[2017-04-13] MEDS: LEVOTHYROXINE SODIUM 125 MCG TAB PO SCH (05:25)
[2017-04-13] MEDS: INSULIN NovoLIN REGULAR SUPPLEMENTAL SCALE SQ SCH ×4 (05:40→21:00)
[2017-04-13] MEDS: BENEPROTEIN POWDER 1 PACK G-TUBE SCH ×3 (07:45→17:27)
[2017-04-13] MEDS: QUEtiapine FUMARATE 25 MG TAB PO SCH ×2 (08:19→11:48)
[2017-04-13] MEDS: POTASSIUM PHOSPHATE MONOBASIC 500 MG TAB PO SCH (08:19)
[2017-04-13] MEDS: AMIODARONE 200 MG TAB PO SCH (08:19)
[2017-04-13] MEDS: clonazePAM 0.5 MG TAB PO SCH ×2 (08:19→21:59)
[2017-04-13] MEDS: INSULIN DETEMIR 100 UNITS/ML VIAL SQ SCH ×2 (08:19→21:00)
[2017-04-13] MEDS: FUROSEMIDE 20 MG TAB PO SCH (08:20)
[2017-04-13] MEDS: RIVAROXABAN 20 MG TAB PO SCH (08:20)
[2017-04-13] MEDS: VENLAFAXINE HCL XR 75 MG CAP PO SCH (08:20)
[2017-04-13] MEDS: NYSTAT/DIPHENHY/LIDO MOUTHWASH (Adult) 120ML SWISH-SWAL SCH ×4 (08:20→22:00)
[2017-04-13] MEDS: predniSONE 20 MG TAB PO SCH ×2 (08:20→21:59)
[2017-04-13] MEDS: TAMSULOSIN HCL 0.4 MG CAP PO SCH (08:20)
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
[2017-04-13] MEDS: cefTRIAXone INJ 1,000 MG in SODIUM CHLORIDE 0.9% INJ 100 ML IV SCH (11:48)
[2017-04-13] MEDS: SENNOSIDES 8.6 MG TAB PO PRN (17:25)
[2017-04-13] MEDS: MORPHINE SULFATE 15 MG TAB PO PRN (17:25)
--- NOTE | 2017-04-13 21:15 | HHI.PR ---
Subjective Remarks 76 YOWm with COPD,Sq cell ca epiglotis, was on XRT Anxious at BS more awake Tolerates TF 45cc /hr Tired Feeding tube clogged again. Objective Vital Signs Vital Signs Date Time Temp Pulse Resp B/P Pulse Ox O2 Delivery O2 Flow Rate FiO2 04/13/17 20:28 96 Nasal Cannula 2.00 04/13/17 20:00 97.4 73 16 114/60 96 04/13/17 16:00 96.9 84 16 108/60 95 04/13/17 12:00 96.6 83 14 115/64 95 04/13/17 08:32 93 Nasal Cannula 1.00 04/13/17 08:03 78 04/13/17 08:00 96.5 77 16 112/56 93 04/13/17 07:57 94 Nasal Cannula 1.00 04/13/17 04:00 97.6 76 17 128/73 96 04/13/17 00:00 96.6 74 16 126/67 97 I/O 04/12/17 04/12/17 04/12/17 04/13/17 04/13/17 04/13/17 07:00 15:00 23:00 07:00 15:00 23:00 Intake Total 360 ml 60 ml 935 ml Output Total 400 ml 1350 ml 800 ml 600 ml 800 ml Balance -400 ml -990 ml -740 ml -600 ml 135 ml Intake Oral 360 ml 60 ml 600 ml IV Total 335 ml Output Urine Total 400 ml 1350 ml 800 ml 600 ml 800 ml # Voids 1 # Bowel Movements 0 0 0 Result Diagram: 04/10/1735 04/10/17634 Objective Remarks GENERAL: MBMN WM, NAD SKIN: Warm and dry. HEAD: Normocephalic. EYES: No scleral icterus. No injection or drainage. NECK: Supple, trachea midline. No JVD or lymphadenopathy. CARDIOVASCULAR: Regular rate and rhythm without murmurs, gallops, or rubs. RESPIRATORY: Breath sounds equal bilaterally. No accessory muscle use. GASTROINTESTINAL: Abdomen soft, non-tender, nondistended. MUSCULOSKELETAL: No cyanosis, or edema. BACK: Nontender without obvious deformity. No CVA tenderness. A/P Assessment and Plan COPD Lung Infilt Sq Cell ca Epiglotis DM Anxiety PLAN: DW pt and Cont Aerosol nebs Supplement 02 SQ Lovenox Monitor BS cont TF DC plans underway. Bimal Borden MD April 13, 2017 21:15
[2017-04-13] MEDS: PANTOPRAZOLE SODIUM 40 MG VIAL IV PUSH SCH (21:59)
[2017-04-13] MEDS: ATORVASTATIN 40 MG TAB PO SCH (21:59)
[2017-04-14] VITALS (10 sets, daily range): BP systolic 112–139; BP diastolic 64–72; PULSE 69–76; RESP 16–20; TEMP 96.5–97.7; O2SAT 94–99
[2017-04-14] MEDS: DILTIAZEM HCL 60 MG TAB PO SCH ×4 (00:54→19:58)
[2017-04-14] MEDS: PIPERACIL-TAZO 4.5 GM PREMIX 100 ML IV SCH ×4 (00:54→19:59)
[2017-04-14] MEDS: MORPHINE SULFATE 15 MG TAB PO PRN ×2 (03:45→19:59)
[2017-04-14] MEDS: LEVOTHYROXINE SODIUM 125 MCG TAB PO SCH (05:58)
[2017-04-14] MEDS: LEVOTHYROXINE SODIUM 100 MCG TAB PO SCH (05:58)
[2017-04-14] MEDS: INSULIN NovoLIN REGULAR SUPPLEMENTAL SCALE SQ SCH ×4 (06:02→21:11)
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
[2017-04-14] MEDS: VENLAFAXINE HCL XR 75 MG CAP PO SCH (08:32)
[2017-04-14] MEDS: clonazePAM 0.5 MG TAB PO SCH ×2 (08:32→21:28)
[2017-04-14] MEDS: AMIODARONE 200 MG TAB PO SCH (08:32)
[2017-04-14] MEDS: QUEtiapine FUMARATE 25 MG TAB PO SCH ×2 (08:32→11:48)
[2017-04-14] MEDS: predniSONE 20 MG TAB PO SCH ×2 (08:32→21:28)
[2017-04-14] MEDS: TAMSULOSIN HCL 0.4 MG CAP PO SCH (08:32)
[2017-04-14] MEDS: FUROSEMIDE 20 MG TAB PO SCH (08:32)
[2017-04-14] MEDS: BENEPROTEIN POWDER 1 PACK G-TUBE SCH ×3 (08:38→17:46)
[2017-04-14] MEDS: NYSTAT/DIPHENHY/LIDO MOUTHWASH (Adult) 120ML SWISH-SWAL SCH ×4 (08:45→21:28)
[2017-04-14] MEDS: INSULIN DETEMIR 100 UNITS/ML VIAL SQ SCH ×2 (09:00→21:10)
[2017-04-14] MEDS: LORazepam 1 MG TAB PEG PRN (10:14)
[2017-04-14] MEDS: cefTRIAXone INJ 1,000 MG in SODIUM CHLORIDE 0.9% INJ 100 ML IV SCH (11:49)
--- NOTE | 2017-04-14 15:22 | PD.RAD ---
Post Procedure Progress Note Pre Procedure Diagnosis: (1) Failure to thrive in adult Post Procedure Diagnosis: (1) Failure to thrive in adult Procedure Date: April 14, 2017 Supervising Radiologist: Jose Sims Anesthesia: Local Plan of Activity Patient to Unit: [facility] Additional Comments: G/J tube was occluded. New tube placed through the existing tract. Position verified tube OK for use See PACS Report for procedural detail/treatment Jose Sims MD April 14, 2017 15:22
[2017-04-14] MEDS ORDERED: IOHEXOL 350 MG/ML 50 ML BTL (for RAD DIAG) ONE (15:40)
[2017-04-14] MEDS ORDERED: fentaNYL CITRATE 250 MCG/5 ML AMP ONE (15:53)
--- NOTE | 2017-04-14 15:54 | RADRPT ---
EXAM DATE/TIME: 04/14/2017 15:46 [facility] COMPARISON: CHANGE OF GJ-TUBE CATHETER, April 08, 2017, 13:25. INDICATIONS : Clogged TJ tube exchanged 6 days ago. MEDICAL HISTORY : 1. Aspiration 2. Gastroparesis 3. HTN 4. A fib 5. COPD 6. Squamous cell cancer epiglottis 7. DM SURGICAL HISTORY : 1. Tonsillectomy 2. G tube placement 3. Cardiac ablation 4. Hernia repair 5. Cholecystectomy ENCOUNTER: Subsequent ACUITY: 2 days PAIN SCORE: 0/10 FLUORO TIME: 3.0 minutes IMAGE SERIES: 2 SEDATION TIME: 30 minutes CONTRAST: 20 cc Omnipaque (iohexol) 350 MEDICATION(S): 1.) 75 mcg fentanyl (Sublimaze) IV DEVICE(S): 1.) 22 Dutch Transgastric tube PROCEDURE : 1. Fluoroscopically guided gastrojejunostomy tube exchange. 2. Conscious sedation with continuous EKG and oximetry monitoring. The risks, benefits and alternatives to the procedure were explained and verbal and written consent w as obtained. The site was prepped in sterile fashion. Full sterile technique was used, including ca p, mask, sterile gloves and gown and a large sterile sheet. Hand hygiene and 2% chlorhexidine and/or betadine/alcohol prep was utilized per protocol for cutaneous antisepsis. The skin and subcutaneous tissues were infiltrated with local anesthetic solution. With fluoroscopic guidance a guidewire was passed through the previous gastrojejunostomy tube and a f resh tube was placed over the guidewire. The balloon was inflated with appropriate volume of saline. Injection of positive contrast demonstrates good position of the gastric and jejunal lumens of the tube. Conscious sedation was performed with the prescribed dosages and duration as above in the presence of an independent trained radiology nurse to assist in the monitoring of the patient. EKG and oximetry remained stable throughout the procedure. The patient tolerated the procedure well and there were n o complications. The patient was sent to post anesthesia recovery in stable condition. CONCLUSION: Uncomplicated gastrojejunostomy tube exchange as above. Jose Sims MD on April 14, 2017 at 15:51 Board Certified Radiologist. This report was verified electronically.
[2017-04-14] MEDS: RIVAROXABAN 20 MG TAB PO SCH (19:59)
--- NOTE | 2017-04-14 20:27 | HHI.PR ---
Subjective Remarks 76 YOWm with COPD,Sq cell ca epiglotis, was on XRT Anxious at BS more awake Tolerates TF 45cc /hr Tired Feeding tube replaced Tolerates PO Objective Vital Signs Vital Signs Date Time Temp Pulse Resp B/P Pulse Ox O2 Delivery O2 Flow Rate FiO2 04/14/17 16:00 96.5 75 18 120/71 94 04/14/17 12:00 96.6 69 16 112/72 95 04/14/17 09:00 97 Nasal Cannula 2.00 04/14/17 08:45 96 Nasal Cannula 1.00 04/14/17 08:12 76 04/14/17 08:00 96.7 76 16 116/69 96 04/14/17 04:00 97.0 75 17 128/64 96 04/14/17 00:00 97.4 72 17 123/70 96 04/13/17 22:00 Nasal Cannula 1.00 21 04/13/17 20:28 96 Nasal Cannula 2.00 I/O 04/13/17 04/13/17 04/13/17 04/14/17 04/14/17 04/14/17 07:00 15:00 23:00 07:00 15:00 23:00 Intake Total 935 ml 360 ml 225 ml 591 ml Output Total 600 ml 800 ml 1000 ml 1000 ml 900 ml Balance -600 ml 135 ml -640 ml -775 ml -309 ml Intake Oral 600 ml 360 ml 360 ml IV Total 335 ml 225 ml 231 ml Output Urine Total 600 ml 800 ml 1000 ml 1000 ml 900 ml # Voids 1 # Bowel Movements 0 0 0 Result Diagram: 04/10/1735 04/10/1735 Objective Remarks GENERAL: MBMN WM, NAD SKIN: Warm and dry. HEAD: Normocephalic. EYES: No scleral icterus. No injection or drainage. NECK: Supple, trachea midline. No JVD or lymphadenopathy. CARDIOVASCULAR: Regular rate and rhythm without murmurs, gallops, or rubs. RESPIRATORY: Breath sounds equal bilaterally. No accessory muscle use. GASTROINTESTINAL: Abdomen soft, non-tender, nondistended. MUSCULOSKELETAL: No cyanosis, or edema. BACK: Nontender without obvious deformity. No CVA tenderness. A/P Assessment and Plan COPD Lung Infilt Sq Cell ca Epiglotis DM Anxiety PLAN: DW pt and Cont Aerosol nebs Supplement 02 SQ Lovenox Monitor BS cont TF DC plans underway.for SNF in [place]. Bimal Borden MD April 14, 2017 20:27
[2017-04-14] MEDS: PANTOPRAZOLE SODIUM 40 MG VIAL IV PUSH SCH (21:25)
[2017-04-14] MEDS: ATORVASTATIN 40 MG TAB PO SCH (21:28)
[2017-04-15] VITALS (7 sets, daily range): BP systolic 111–135; BP diastolic 61–72; PULSE 72–77; RESP 18–20; TEMP 96.7–97.3; O2SAT 90–100
[2017-04-15] MEDS: PIPERACIL-TAZO 4.5 GM PREMIX 100 ML IV SCH ×4 (00:25→21:18)
[2017-04-15] MEDS: fentaNYL 25 MCG/HR PATCH T-DERMAL SCH (00:25)
[2017-04-15] MEDS: DILTIAZEM HCL 60 MG TAB PO SCH ×4 (00:25→18:37)
[2017-04-15] MEDS: REMOVE OLD PATCH-FENTANYL T-DERMAL SCH (00:25)
[2017-04-15] MEDS: LEVOTHYROXINE SODIUM 125 MCG TAB PO SCH (06:04)
[2017-04-15] MEDS: MORPHINE SULFATE 15 MG TAB PO PRN ×2 (06:05→19:06)
[2017-04-15] MEDS: LEVOTHYROXINE SODIUM 100 MCG TAB PO SCH (06:05)
[2017-04-15] MEDS: INSULIN NovoLIN REGULAR SUPPLEMENTAL SCALE SQ SCH ×4 (06:22→21:00)
[2017-04-15 06:31] LABS: AUTOMATED NEUTROPHIL # 5.3 TH/MM3 (1.8-7.7); HEMATOCRIT 34.6 % (39.0-51.0); LYMPH % 1.7 % (9.0-44.0); LYMPHOCYTE # 0.1 TH/MM3 (1.0-4.8); MEAN CELL VOLUME 84.6 FL (80.0-100.0); MEAN CORPUSCULAR HEMOGLOBIN 29.4 PG (27.0-34.0); MEAN CORPUSCULAR HGB CONC 34.7 % (32.0-36.0); MONO % 6.7 % (0.0-8.0); NEUT % 91.6 % (16.0-70.0); PLATELET COUNT 158 TH/MM3 (150-450); RED BLOOD COUNT 4.09 MIL/MM3 (4.50-5.90); RED CELL DISTRIBUTION WIDTH 23.2 % (11.6-17.2); WHITE BLOOD COUNT 5.8 TH/MM3 (4.0-11.0)
[2017-04-15 06:33] LABS: HEMO FLAGS AUTO DIFF
[2017-04-15 07:02] LABS: BICARBONATE 33.2 MEQ/L (21.0-32.0); POTASSIUM 4.2 MEQ/L (3.5-5.1)
[2017-04-15 08:13] LABS: BANDS 18 % (0-6); MYELOCYTES 3 % (0-0); NEUTROPHIL # MANUAL DIFF 4.8 TH/MM3 (1.8-7.7); POLYS (SEG NEUTROPHILS) 61 % (16-70); WBC DIFF SAMPLE 100
[2017-04-15 08:14] LABS: ACANTHOCYTES 1+ (NORMAL); KERATOCYTES OCC (NORMAL); OVALOCYTES 1+ (NORMAL); PLATELET ESTIMATE SMEAR NORMAL (NORMAL); PLATELET MORPHOLOGY NORMAL (NORMAL); SCAN/DIFF FINAL DIFF MANUAL
[2017-04-15] MEDS: FUROSEMIDE 20 MG TAB PO SCH (09:55)
[2017-04-15] MEDS: QUEtiapine FUMARATE 25 MG TAB PO SCH ×2 (09:55→12:00)
[2017-04-15] MEDS: predniSONE 20 MG TAB PO SCH ×2 (09:55→21:16)
[2017-04-15] MEDS: clonazePAM 0.5 MG TAB PO SCH ×2 (09:55→21:16)
[2017-04-15] MEDS: VENLAFAXINE HCL XR 75 MG CAP PO SCH (09:55)
[2017-04-15] MEDS: AMIODARONE 200 MG TAB PO SCH (09:56)
[2017-04-15] MEDS: TAMSULOSIN HCL 0.4 MG CAP PO SCH (09:56)
[2017-04-15] MEDS: RIVAROXABAN 20 MG TAB PO SCH (09:56)
[2017-04-15] MEDS: NYSTAT/DIPHENHY/LIDO MOUTHWASH (Adult) 120ML SWISH-SWAL SCH ×3 (09:57→18:37)
[2017-04-15] MEDS: INSULIN DETEMIR 100 UNITS/ML VIAL SQ SCH ×2 (10:08→21:17)
[2017-04-15] MEDS: LORazepam 1 MG TAB PEG PRN (10:12)
[2017-04-15] MEDS: cefTRIAXone INJ 1,000 MG in SODIUM CHLORIDE 0.9% INJ 100 ML IV SCH (12:00)
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
--- NOTE | 2017-04-15 14:58 | HHI.HCPN ---
Met with Mr. Santana and at bedside. Mr. Santana appears slightly more clear today, appropriate in conversation, somewhat lethargic. Dana expressed some concerns with feeding tube getting clogged again but reports Mr. Santana has been able to take meds by mouth with pudding or applesauce; remains hopefully he will continue to increase intake. Feeding tube replaced yesterday. Also expressed some concern with limited options for [facility] placement but agrees with discharge plan. Offered emotional support. Spoke with CM who is working on authorization from [facility] to [facility] to SNF possibly today. Palliative care will continue to follow throughout hospitalization. Adore Alberto MSW, FRAME TABLE OPERATOR HELPER April 15, 2017 14:58
--- NOTE | 2017-04-15 17:22 | HHI.PR ---
Subjective Remarks 76 YOWm with COPD,Sq cell ca epiglotis, was on XRT Anxious at BS more awake Tolerates TF 45cc /hr Tired Tolerates PO Objective Vital Signs Vital Signs Date Time Temp Pulse Resp B/P Pulse Ox O2 Delivery O2 Flow Rate FiO2 04/15/17 12:00 97.0 73 20 128/65 96 04/15/17 08:00 97.3 77 20 121/63 97 04/15/17 08:00 Nasal Cannula 2.00 04/15/17 08:00 75 04/15/17 04:00 97.0 76 20 124/61 97 04/15/17 00:00 97.0 75 20 111/61 100 04/14/17 20:11 73 04/14/17 20:00 97.7 74 20 139/72 99 04/14/17 20:00 Nasal Cannula 2.00 21 04/14/17 19:26 98 Nasal Cannula 1.50 I/O 04/14/17 04/14/17 04/14/17 04/15/17 04/15/17 04/15/17 07:00 15:00 23:00 07:00 15:00 23:00 Intake Total 225 ml 591 ml Output Total 1000 ml 900 ml 950 ml 800 ml 350 ml Balance -775 ml -309 ml -950 ml -800 ml -350 ml Intake Oral 360 ml IV Total 225 ml 231 ml Output Urine Total 1000 ml 900 ml 950 ml 800 ml 350 ml # Bowel Movements 0 0 Result Diagram: 04/15/17 0450 04/15/17 0450 Objective Remarks GENERAL: MBMN WM, NAD SKIN: Warm and dry. HEAD: Normocephalic. EYES: No scleral icterus. No injection or drainage. NECK: Supple, trachea midline. No JVD or lymphadenopathy. CARDIOVASCULAR: Regular rate and rhythm without murmurs, gallops, or rubs. RESPIRATORY: Breath sounds equal bilaterally. No accessory muscle use. GASTROINTESTINAL: Abdomen soft, non-tender, nondistended. MUSCULOSKELETAL: No cyanosis, or edema. BACK: Nontender without obvious deformity. No CVA tenderness. A/P Assessment and Plan COPD Lung Infilt Sq Cell ca Epiglotis DM Anxiety PLAN: DW pt and Cont Aerosol nebs Supplement 02 SQ Lovenox cont TF DC plans underway.for SNF in [place]. Bimal Borden MD April 15, 2017 17:22
[2017-04-15] MEDS: ATORVASTATIN 40 MG TAB PO SCH (21:16)
[2017-04-15] MEDS: PANTOPRAZOLE SODIUM 40 MG VIAL IV PUSH SCH (21:16)
[2017-04-16] VITALS: BP 146/75; PULSE 77; RESP 16; TEMP 96.3; O2SAT 96
[2017-04-16] MEDS: NYSTAT/DIPHENHY/LIDO MOUTHWASH (Adult) 120ML SWISH-SWAL SCH ×3 (00:20→12:28)
[2017-04-16] MEDS: DILTIAZEM HCL 60 MG TAB PO SCH ×3 (00:20→12:28)
[2017-04-16] MEDS: PIPERACIL-TAZO 4.5 GM PREMIX 100 ML IV SCH ×2 (00:20→07:50)
[2017-04-16] MEDS: MORPHINE SULFATE 15 MG TAB PO PRN (03:19)
[2017-04-16 04:00] VITALS: BP 117/67; PULSE 77; RESP 17; TEMP 97; O2SAT 95
[2017-04-16] MEDS: LEVOTHYROXINE SODIUM 100 MCG TAB PO SCH (06:11)
[2017-04-16] MEDS: LEVOTHYROXINE SODIUM 125 MCG TAB PO SCH (06:11)
[2017-04-16] MEDS: INSULIN NovoLIN REGULAR SUPPLEMENTAL SCALE SQ SCH ×2 (06:12→11:00)
[2017-04-16] MEDS: AMIODARONE 200 MG TAB PO SCH (07:50)
[2017-04-16] MEDS: clonazePAM 0.5 MG TAB PO SCH (07:50)
[2017-04-16] MEDS: TAMSULOSIN HCL 0.4 MG CAP PO SCH (07:51)
[2017-04-16] MEDS: QUEtiapine FUMARATE 25 MG TAB PO SCH ×2 (07:51→12:28)
[2017-04-16] MEDS: FUROSEMIDE 20 MG TAB PO SCH (07:51)
[2017-04-16] MEDS: predniSONE 20 MG TAB PO SCH (07:51)
[2017-04-16] MEDS: VENLAFAXINE HCL XR 75 MG CAP PO SCH (07:51)
[2017-04-16] MEDS: RIVAROXABAN 20 MG TAB PO SCH (07:58)
[2017-04-16] MEDS: INSULIN DETEMIR 100 UNITS/ML VIAL SQ SCH (07:58)
[2017-04-16 08:49] VITALS: BP 135/60; PULSE 80; RESP 18; TEMP 97.3; O2SAT 97
[2017-04-16] MEDS: LORazepam 1 MG TAB PEG PRN (10:03)
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
[2017-04-16] MEDS ORDERED: OXYGENTANK NAS.CANULA (11:38)
[2017-04-16 11:44] VITALS: O2SAT 98
[2017-04-16] MEDS ORDERED: PRED10 PO (11:48)
[2017-04-16] MEDS ORDERED: DILT60TA33 PO (11:48)
[2017-04-16] MEDS ORDERED: LEVO.1 PO (11:48)
[2017-04-16] MEDS ORDERED: LEVEMIR SQ (11:48)
[2017-04-16] MEDS ORDERED: CLON.5 PO (11:48)
[2017-04-16] MEDS ORDERED: ATOR40TA16 PO (11:48)
[2017-04-16] MEDS ORDERED: FURO20TA PO (11:48)
[2017-04-16] MEDS ORDERED: XARE20TA PO (11:48)
[2017-04-16] MEDS ORDERED: FENT25T T-DERMAL (11:48)
[2017-04-16] MEDS ORDERED: AMIO200T PO (11:48)
[2017-04-16] MEDS ORDERED: QUET1TAB7 PO (11:51)
[2017-04-16] MEDS ORDERED: MSIR15 PO (11:52)
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
[2017-04-16 12:00] VITALS: BP 150/82; PULSE 78; RESP 16; TEMP 97; O2SAT 99
[2017-04-16] MEDS ORDERED: predniSONE 10 MG TAB PO SCH (21:00)
== END 2017-04-16 15:33 | DRG 871 ==
LOC: NEPC 10:57 → NEDA 14:59 → HIMN 03-14 01:20 → N04B 03-19 00:05 → N03B 03-27 03:06 → HOCA 03-29
PROVIDERS: ADMIT Hospitalist; ATTEND Internal Medicine
PROC: 0T9B70Z Drainage of Bladder with Drainage Device, Via Natural or Artificial Opening (ICD-10-PCS; 2017-03-19)
PROC: DW011ZZ Beam Radiation of Head and Neck using Photons 1 - 10 MeV (ICD-10-PCS; 2017-03-24)
PROC: 0D20XUZ Change Feeding Device in Upper Intestinal Tract, External Approach (ICD-10-PCS; principal; 2017-03-26)
PROC: 0DJD8ZZ Inspection of Lower Intestinal Tract, Via Natural or Artificial Opening Endoscopic (ICD-10-PCS; 2017-03-31)
PROC: 0D2DXUZ Change Feeding Device in Lower Intestinal Tract, External Approach (ICD-10-PCS; 2017-04-01)
PROC: 0D2DXUZ Change Feeding Device in Lower Intestinal Tract, External Approach (ICD-10-PCS; 2017-04-06)
PROC: 0D2DXUZ Change Feeding Device in Lower Intestinal Tract, External Approach (ICD-10-PCS; 2017-04-08)
PROC: 0D2DXUZ Change Feeding Device in Lower Intestinal Tract, External Approach (ICD-10-PCS; 2017-04-14)
DX: A41.9 Sepsis, unspecified organism (principal); J69.0 Pneumonitis due to inhalation of food and vomit; E43 Unspecified severe protein-calorie malnutrition; T17.590A Other foreign object in bronchus causing asphyxiation, initial encounter; J96.02 Acute respiratory failure with hypercapnia; J96.01 Acute respiratory failure with hypoxia; K31.1 Adult hypertrophic pyloric stenosis; E87.2 Acidosis; F05 Delirium due to known physiological condition; C32.1 Malignant neoplasm of supraglottis; B37.49 Other urogenital candidiasis; J98.11 Atelectasis; I48.92 Unspecified atrial flutter; I50.22 Chronic systolic (congestive) heart failure; K56.7 Ileus, unspecified; K94.23 Gastrostomy malfunction; E10.42 Type 1 diabetes mellitus with diabetic polyneuropathy; I48.2 Chronic atrial fibrillation; K31.84 Gastroparesis; E10.649 Type 1 diabetes mellitus with hypoglycemia without coma; E10.65 Type 1 diabetes mellitus with hyperglycemia; Z99.81 Dependence on supplemental oxygen; M19.90 Unspecified osteoarthritis, unspecified site; F41.9 Anxiety disorder, unspecified; Z79.4 Long term (current) use of insulin; Z79.02 Long term (current) use of antithrombotics/antiplatelets; Z96.612 Presence of left artificial shoulder joint; Z92.3 Personal history of irradiation; Z87.891 Personal history of nicotine dependence; Z91.5 Personal history of self-harm; K21.9 Gastro-esophageal reflux disease without esophagitis; I10 Essential (primary) hypertension; G47.30 Sleep apnea, unspecified; Z86.14 Personal history of Methicillin resistant Staphylococcus aureus infection; Z88.1 Allergy status to other antibiotic agents; Z91.040 Latex allergy status; Z91.09 Other allergy status, other than to drugs and biological substances; Z79.52 Long term (current) use of systemic steroids; E78.5 Hyperlipidemia, unspecified; Y84.2 Radiological procedure and radiotherapy as the cause of abnormal reaction of the patient, or of later complication, without mention of misadventure at the time of the procedure; E03.9 Hypothyroidism, unspecified; M54.30 Sciatica, unspecified side; F32.9 Major depressive disorder, single episode, unspecified; R13.19 Other dysphagia; Z86.010 Personal history of colon polyps; K29.70 Gastritis, unspecified, without bleeding; T38.0X5A Adverse effect of glucocorticoids and synthetic analogues, initial encounter; J02.9 Acute pharyngitis, unspecified; Y83.8 Other surgical procedures as the cause of abnormal reaction of the patient, or of later complication, without mention of misadventure at the time of the procedure; Y73.1 Therapeutic (nonsurgical) and rehabilitative gastroenterology and urology devices associated with adverse incidents; Y92.239 Unspecified place in hospital as the place of occurrence of the external cause; N20.0 Calculus of kidney; R62.7 Adult failure to thrive; Z51.5 Encounter for palliative care; K64.4 Residual hemorrhoidal skin tags; K64.8 Other hemorrhoids; R44.1 Visual hallucinations; R33.9 Retention of urine, unspecified; Z74.01 Bed confinement status; G47.00 Insomnia, unspecified; K22.4 Dyskinesia of esophagus; G89.4 Chronic pain syndrome; Z66 Do not resuscitate
CPT/HCPCS: 36600; 45337; 49446; 49450; 49452; 70553; 71010; 71275; 72128; 72131; 72156; 72157; 72158; 74000; 74177; 74270; 76937; 77014; 77336; 77386; 77387; 77427; 80048; 80053; 81001; 82550; 82607; 82746; 82805; 82947; 82948; 83605; 83690; 83735; 83880; 83921; 84100; 84207; 84425; 84439; 84443; 84484; 85007; 85025; 85027; 85652; 86038; 86592; 87040; 87086; 87641; 93005; 93970; 94640; 94664; 96365; 96374; 96375; 99152; 99153; A9579; C1769; C1874; C1887; C1894; C9113; J0456; J0692; J0696; J1170; J1650; J1815; J2060; J2250; J2270; J2370; J2405; J2543; J2765; J2920; J2930; J3010; J7030; J7050; J7512; P9047; Q9963; Q9967